=== PATIENT | female | born 1975 | race Two or more races ===

== ENCOUNTER 2023-03-22 10:27 | Emergency (ER) | payer OTHER, SELFPAY ==
[2023-03-22 10:32] VITALS: BP 156/101; PULSE 98; RESP 18; TEMP 36.9; O2SAT 98; BMI 18.5
--- NOTE | 2023-03-22 10:55 | ED_ITS ---
HPI - General Adult General Chief complaint: Weakness Stated complaint: REPEAT FALLING, HALLUCINATIONS Time Seen by Provider: 03/22/23 10:55 History of Present Illness HPI narrative: history obtained from both the patient and her . brought her in because she was having some visual hallucinations at home last night. She said she was nauseated and vomiting most the day. We do not have any previous records for her at this hospital. She is under the care of an oncologist in [place], Dr. Sanders, she had a mastectomy done by a surgeon and Anat about three years ago. She has not had any recent follow-up or CT scans of the head. They're understanding is that there is no metastasis and that she was cured she does not have any diarrhea or abdominal pain chest pain or shortness of breath. It is not been a other unusual behavior but she insists that she is seeing a rabbit and a raccoon on image of her doorway at home. She had a recent fall and was treated at an orthopedic doctor's office and is has a walking boot on and is supposed to be using crutches but she's not been using it. She has been taking some Ultram for the discomfort. She is not having a fever shakes or chills. She has no history of psychiatric disease. She has no history of auditory hallucinations or previous visual hallucinations. Related Data Allergies Allergy/AdvReac Type Severity Reaction Status Date / Time morphine Allergy Mild Verified 03/22/23 10:37 [facility] Medical History (Updated 03/22/23 @ 12:41 by Riley Aquino MD) Hx of fracture of fibula ?Z87.81 - Personal history of (healed) traumatic fracture (ICD-10) Hx of malignant neoplasm of breast ?Z85.3 - Personal history of malignant neoplasm of breast (ICD-10) Hx of neoplasm ?Z87.898 - Personal history of other specified conditions (ICD-10) Social History Smoking status: Current every day smoker Exam Narrative Exam Narrative: awake and alert vital signs are noted slight elevation of blood pressure. She is oriented ?3. Cognition is intact but please see psychiatric below. Neck C-spine showed no illicit trauma or injury or discomfort. She has no nuchal rigidity or meningeal irritation. Eye examination shows extra ocular muscles be normal. There is no nystagmus. There is no conjunctivitis. Respiratory shows no restaurant distress there is no cough wheezing or rhonchi. Heart sounds are normal no arrhythmia by palpation. Neurological examination shows cranial nerves II strolled to be normal. She has spontaneous and complete movement of her trunk and torso. She's not repeating herself. When her shows her a picture on the cell phone of his doorway at home she believes that yesterday and perhaps today she sees a rabbit and another animal that are in the picture that aren't actually not in the picture. She has no explanation for that. She is not having any auditory hallucinations. Otherwise her complete review of systems short and long-term memory is completely normal. This was d emonstrated while the was present. Constitutional Vital Signs, click to edit/add: Last Vital Signs Temp 98.5 F 03/22/23 10:32 Pulse 98 H 03/22/23 10:32 Resp 18 03/22/23 10:32 BP 156/101 H 03/22/23 10:32 Pulse Ox 98 03/22/23 10:32 O2 Del Method Room Air 03/22/23 10:32 Course Vital Signs Vital signs: Vital Signs Temperature 98.5 F 03/22/23 10:32 Pulse Rate 98 H 03/22/23 10:32 Respiratory Rate 18 03/22/23 10:32 Blood Pressure 156/101 H 03/22/23 10:32 Pulse Oximetry 98 03/22/23 10:32 Oxygen Delivery Method Room Air 03/22/23 10:32 Temperature 98.5 F 03/22/23 10:32 Pulse Rate 98 H 03/22/23 10:32 Respiratory Rate 18 03/22/23 10:32 Blood Pressure 156/101 H 03/22/23 10:32 Pulse Oximetry 98 03/22/23 10:32 Oxygen Delivery Method Room Air 03/22/23 10:32 Medical Decision Making MDM Narrative Medical decision making narrative: I did obtain medical records from her treating oncologist and she's been in remission and is doing very well recently. Her CT scan her head is normal here. Her laboratory studies show hypokalemia for uncertain etiology. This may be contributing to the fact that she has some fallen and then recently broke her leg. She is scheduled follow-up with her orthopedist. She has promised me and her that she will see a primary care doctor here in our community to have an ongoing primary care practitioner. I believe with his sleep deprivation that she described and the tramadol that that might be accounting for her symptomatology but I don't see any other acute neurological process at this time Lab Data Labs: Lab Results 03/22/23 Range/Units 11:07 WBC 8.1 (4.0-11.0) 10^3/uL RBC 3.32 L (4.20-5.40) 10^6/uL Hgb 11.6 L (12.0-16.0) g/dL Hct 34.0 L (36.0-48.0) % MCV 102.4 H (81.0-99.0) fL MCH 34.9 H (26.7-34.0) pg MCHC 34.1 (29.9-35.2) g/dL RDW 11.9 (11.0-15.0) % Plt Count 129 L (150-450) 10^3/uL MPV 10.0 (9.5-13.5) fL Sodium 133 L (136-145) mmol/L Potassium 2.9 L* (3.5-5.1) mmol/L Chloride 89 L (98-107) mmol/L Carbon Dioxide 28.5 (21.0-32.0) mmol/L Anion Gap 18.4 BUN 6.0 L (7.0-18.0) mg/dL Creatinine 0.48 L (0.55-1.02) mg/dL Est GFR ( Amer) >60 (>=60) Est GFR (Non-Af Amer) >60 (>=60) BUN/Creatinine Ratio 12.5 Glucose 98 (74-106) mg/dL Calcium 10.0 (8.5-10.1) mg/dL Total Bilirubin 1.0 (0.2-1.0) mg/dL AST 121 H (15-37) U/L ALT 61 H (14-59) U/L Alkaline Phosphatase 149 H (46-116) U/L Total Protein 8.2 (6.4-8.2) g/dL Albumin 4.1 (3.4-5.0) g/dL Globulin 4.1 g/dL Albumin/Globulin Ratio 1.0 TSH 0.455 (0.358-3.740) uIU/mL Discharge Plan Discharge Chief Complaint: Weakness Clinical Impression: Acute hypokalemia Patient Disposition: Home, Self-Care Time of Disposition Decision: 12:41 Additional Instructions: K lyte/follow-up with primary care doctor/stop tramadol/follow-up with orthopedic doctor Stand Alone Forms: Portal Instructions Referrals: Physician,Non-Staff, MD [Primary Care Provider] - 1 week
--- NOTE | 2023-03-22 10:58 | CT_ITS ---
The [address] [address] Patient Name: VALENTINE LEE MRN: [id number] date: 1975 Sex: F Assigned Patient Location: ER Current Patient Location: ER Accession/Order Number: [id number] Exam Date: 03/22/2023 11:14 Report Date: 03/22/2023 11:28 At the request of: SUNG PARK Procedure: CT head/brain wo con CT head/brain wo con, 03/22/2023 11:14 AM EDT INDICATION: visual hallucinations/breast cancer COMPARISON: There is no appropriate prior study for comparison. TECHNIQUE: Axial CT images of the brain from skull base to vertex, including portions of the face and sinuses, were obtained without contrast . Multiplanar reformatted images were generated and reviewed as needed. Dose reduction techniques were achieved by using automated exposure control and/or adjustment of mA and/or kV according to patient size and/or use of iterative reconstruction technique. FINDINGS: The cerebral sulci as well as ventricular system are enlarged consistent with mild ex vacuo cerebral volume loss. There is no intracranial mass, mass effect, midline shift, intra or extra-axial fluid collection or hemorrhage. The visualized portions of orbits, mastoid air cells as well as paranasal sinuses are unremarkable. There is no suspicious osteolytic or osteoblastic lesion. CT/CT head/brain wo con IMPRESSION: No acute intracranial process is noted. Electronically authenticated by: ANTONIO SHELTON Date: 03/22/2023 11:28
[2023-03-22 11:18] LABS: Hemoglobin 11.6 g/dL (12.0-16.0); Mean Corpuscular HGB Conc 34.1 g/dL (29.9-35.2); Mean Corpuscular Hemoglobin 34.9 pg (26.7-34.0); Mean Corpuscular Volume 102.4 fL (81.0-99.0); Platelet Count 129 10^3/uL (150-450); Red Blood Count 3.32 10^6/uL (4.20-5.40); Red Cell Distribution Width 11.9 % (11.0-15.0); White Blood Count 8.1 10^3/uL (4.0-11.0)
[2023-03-22 11:37] LABS: Alanine Aminotransferase 61 U/L (14-59); Albumin Level 4.1 g/dL (3.4-5.0); Alkaline Phosphatase 149 U/L (46-116); Anion Gap 18.4; Aspartate Amino Transferase 121 U/L (15-37); BUN Creatinine Ratio 12.5; Carbon Dioxide 28.5 mmol/L (21.0-32.0); Chloride 89 mmol/L (98-107); Estimated GFR (African America >60 (>=60); Estimated GFR (Non-African Ame >60 (>=60); Globulin 4.1 g/dL; Glucose 98 mg/dL (74-106); Sodium 133 mmol/L (136-145); Thyroid Stimulating Hormone 0.455 uIU/mL (0.358-3.740); Total Protein 8.2 g/dL (6.4-8.2)
[2023-03-22 11:40] LABS: Potassium 2.9 mmol/L (3.5-5.1)
[2023-03-22 11:43] LABS: Monocytes Absolute Manual 0.72 10^3/uL (0.30-0.80); Segmented Neut Absolute Manual 6.96 10^3/uL (1.4-6.5)
[2023-03-22 11:44] LABS: Macrocytosis 1+
[2023-03-22] MEDS: POTASSIUM CHLORIDE 10 MEQ ER TABLET 20 MEQ PO (11:54)
[2023-03-22 12:06] LABS: Bilirubin Urine MODERATE (NEGATIVE); Blood Urine TRACE-I (NEGATIVE); Clarity Urine CLEAR (CLEAR); Color Urine YELLOW (YELLOW); Glucose Urine UA NEGATIVE (NEGATIVE); Ketones Urine >=80 mg/dL (NEGATIVE); Leukocyte Esterase Urine TRACE (NEGATIVE); Nitrite Urine NEGATIVE (NEGATIVE); Protein Urine 100 mg/dL (NEG/TRACE); Specific Gravity Urine 1.015 (1.005-1.025)
[2023-03-22 12:09] LABS: Urine Microscopic Indicated YES
[2023-03-22 12:22] LABS: Mucus Urine MODERATE (NONE SEEN); Squamous Epithelial Cell Urine MODERATE #/LPF (NONE/RARE)
[2023-03-22 12:23] LABS: Cast Seen? NONE SEEN #/LPF (NONE SEEN); Crystals Seen? None Seen #/HPF (None Seen)
[2023-03-22 12:24] LABS: Bacteria Urine SMALL #/HPF (NONE SEEN); Urine Culture Indicated YES
[2023-03-22 12:55] VITALS: BP 128/80; PULSE 96; RESP 16; O2SAT 98
--- NOTE | 2023-03-26 08:20 | PC.NURSE ---
03/26/23 0820 pt called and updated on + uti from 03/22/[address] Aquino on 03/25/23 Macrobid 100 mg po BID times 7 days called to [facility] in [place]. pt updated and denies any further questions needs or conerns at this time. Red Kruger RN
== END 2023-03-22 13:00 | disposition home or self-care (01) ==
PROVIDERS: Emergency Provider Emergency Medicine Emergency Medical Services
DX: E87.6 Hypokalemia (principal); Z87.81 Personal history of (healed) traumatic fracture; Z85.3 Personal history of malignant neoplasm of breast; Z90.10 Acquired absence of unspecified breast and nipple; F17.210 Nicotine dependence, cigarettes, uncomplicated
CPT/HCPCS: 36415; 70450; 80053; 81001; 84443; 85027; 87086; 87150; 87186; 99284

== ENCOUNTER 2024-03-05 10:57 | Outpatient (OUT) | payer OTHER, SELFPAY ==
--- NOTE | 2024-03-05 11:19 | CT_ITS ---
The [address] [address] Patient Name: VALENTINE LEE MRN: [id number] date: 1975 Sex: F Assigned Patient Location: CT Current Patient Location: CT Accession/Order Number: [id number] Exam Date: 03/05/2024 11:15 Report Date: 03/05/2024 11:34 At the request of: PETER CERNA Procedure: CT head/brain wo con EXAM: CT head/brain wo con HISTORY: CONFUSION, UNSTEADY GAIT COMPARISON: CT head 03/22/2023. TECHNIQUE: Axial noncontrast CT imaging of the head was performed with coronal and sagittal reformats. FINDINGS: Calvarium/skull base: No evidence of acute fracture or destructive lesion. Paranasal sinuses: No air fluid levels. Brain: No acute intracranial hemorrhage. No acute large vascular territory infarct. Mild age advanced parenchymal volume loss. No mass lesion or mass effect. No hydrocephalus. CT/CT head/brain wo con IMPRESSION: No acute intracranial process. Electronically authenticated by: GLENIS LAWRENCE Date: 03/05/2024 11:34
[2024-03-05 11:40] LABS: Bilirubin Urine NEGATIVE (NEGATIVE); Blood Urine TRACE-I (NEGATIVE); Clarity Urine CLEAR (CLEAR); Color Urine LT. YELLOW (YELLOW); Glucose Urine UA NEGATIVE (NEGATIVE); Ketones Urine NEGATIVE (NEGATIVE); Leukocyte Esterase Urine SMALL (NEGATIVE); Nitrite Urine NEGATIVE (NEGATIVE); Protein Urine NEGATIVE (NEG/TRACE); Urobilinogen Urine 0.2 EU/dL (0.2-1.0); pH Urine 6.5 (5.0-9.0)
[2024-03-05 11:58] LABS: Ammonia <10 umol/L (11-32)
[2024-03-05 12:33] LABS: Percent Iron Saturation 7.3 %
[2024-03-05 12:39] LABS: Alanine Aminotransferase 39 U/L (14-59); Albumin Globulin Ratio 0.7; Albumin Level 2.8 g/dL (3.4-5.0); Alkaline Phosphatase 129 U/L (46-116); Anion Gap 7.9; Aspartate Amino Transferase 66 U/L (15-37); BUN Creatinine Ratio 7.7; Bilirubin Total 0.4 mg/dL (0.2-1.0); Calcium 7.9 mg/dL (8.5-10.1); Carbon Dioxide 32.8 mmol/L (21.0-32.0); Chloride 96 mmol/L (98-107); Estimated GFR (African America >60 (>=60); Estimated GFR (Non-African Ame >60 (>=60); Globulin 4.2 g/dL; Glucose 94 mg/dL (74-106); Magnesium 1.9 mg/dL (1.8-2.4); Sodium 134 mmol/L (136-145); Thyroid Stimulating Hormone 0.934 uIU/mL (0.358-3.740)
[2024-03-05 12:43] LABS: Urine Microscopic Indicated YES
[2024-03-05 12:50] LABS: Bacteria Urine SMALL #/HPF (NONE SEEN); Cast Seen? NONE SEEN #/LPF (NONE SEEN); Crystals Seen? None Seen #/HPF (None Seen); Mucus Urine NONE SEEN (NONE SEEN); Squamous Epithelial Cell Urine FEW #/LPF (NONE/RARE); Urine Culture Indicated YES
[2024-03-05 13:25] LABS: Potassium 2.7 mmol/L (3.5-5.1)
[2024-03-06 11:12] LABS: Vitamin B12 1103 pg/mL (232-1245)
[2024-03-08 13:10] LABS: Vitamin B1 (Thiamine), Blood 94.5 nmol/L (66.5-200.0)
== END 2024-03-05 10:58 | disposition home or self-care (01) ==
LOC: CT 11:00
PROVIDERS: Visit Provider Nurse Practitioner Primary Care
DX: R41.0 Disorientation, unspecified (principal); R26.89 Other abnormalities of gait and mobility; F10.90 Alcohol use, unspecified, uncomplicated
CPT/HCPCS: 36415; 70450; 80053; 81001; 82140; 82306; 82607; 82746; 83540; 83550; 83735; 84425; 84443; 87086

== ENCOUNTER 2025-01-03 10:17 | Emergency (ER) | payer OTHER, SELFPAY ==
--- OUTSIDE RECORDS SUMMARY | 2022-06-01 12:57 | XMS_ITS | Continuity of Care Document ---
Author Organization [facility] Address [address] [place] [address] Phone Care Team Providers Care Child Care Giver Name Role Phone Derick WHCNP WHCNP, Ni Hillman Unavaila ble Allergies, Adverse Reactions, Alerts Substance Reaction Status Criticality morphine Hives/Skin Rash Active No Informati on Medications Medication Instructions Dosage Effective Dates (start - stop) Status Comments Requip 0.25 mg tablet take 2 tablet by oral route 2 times every day 0.5 MG - Active amoxicillin 500 mg capsule take 1 capsule by oral route every 8 hours for Intraoral abscess 500 MG - Active TAMOXIFEN CITRATE (unknown strength) take 1 tablet by oral route every day in the morning and evening Not Available - Active Calcium 600 600 mg calcium (1,500 mg) tablet - Active Vitamin D3 1,000 unit capsule take 1 capsule by oral route every day 1 capsule - Active ibuprofen 200 mg capsule take 1 capsule by oral route every 6 hours as needed 200 MG - Active Problems Condition Type Effective Dates (start - stop) Clini sridevi Status Comments No Known Problems Procedures Procedure Date Extract; Erupted Th/exposted Rt Extract; Erupted Th/exposted Rt 019 Oral Hygiene Instruction Treatment Completed Intraoral-periapical 1st Film 9 Etsbiimzb-dmsxqirojn-rdar Additional Feb Limited Oral Eval PREV VISIT, EST, AGE 40-64 PREVENTIVE NEW AGE 40-64 PREVENTIVE NEW AGE 40-64 PREV VISIT, NEW, AGE 18-39 CHLAMYDIA & GC W/REFLEX TO ID (DNA PROBE , ENDOCERMURET) THIN PREP AND HPV URINE TEST Condoms Advance Directives Directive Yes / No Effective Date File Name No Information Encounters Encounter Description Practice Location Reason(s) For Visit Diagnoses Date Provider Providers Copied on Encounter [facility], [address] [place] [address], [id number] , [place] tel: [phone] [facility] No Information 2 Rice [facility] Ni. [address] [place], [place], [id number], [place]. tel:[phone] [facility], [address] [place] [address], [id number] , [place] tel: [phone] [facility] No Information Apr-0 9 Kyree Navarrete. [address] [place], [place], [id number], [place]. tel:[phone] [facility], [address] [place] [address], [id number] , [place] tel: [phone] Dental Clinic Encounter for screening for dental disorders Sep-0 9 Waldemar Quintanilla. [address] [place], [place], [id number], [place]. tel:[phone] [facility], [address] [place] [address], [id number] , [place] tel: [phone] Dental Clinic dental emergency (chief complaint) Encounter for screening for dental disorders Sep-0 - 9 Colin Greenberg. [address] [place], [place], [id number], [place]. tel:[phone] [facility], [address] [place] [address], [id number] , [place] tel: [phone] [facility] problem visit (chief complaint) Body mass index (BMI) 21.0-21.9, adult Sep-0 3- 9 Kyree Navarrete. [address] [place], [place], [id number], [place]. tel:[phone] [facility], [address] [place], [place], [id number] , [place] tel: [phone] [facility] review labs (chief complaint) Body mass index (BMI) 21.0-21.9, adultUrinary frequencyEncounter to discuss test resultsNeuropathyI nfiltrating ductal carcinoma of left breast 9 Kyree Navarrete. [address] [place], [place], [id number], [place]. tel:[phone] [facility], [address] [place] [address], [id number] , [place] tel: [phone] [facility] leg numbness (chief complaint) Body mass index (BMI) 21.0-21.9, adultEncounter to establish careInfiltrating ductal carcinoma of left breastNeuropathyTo bacco abuse 8-201 8 Kyree Navarrete. [address] [place] [address], [id number], [place]. tel:[phone] [facility], [address] [place] [address], [id number] , [place] tel: [phone] [facility] Infiltrating ductal carcinoma of left breast 2 8 [facility] Ni. [address] [place], [place], [id number], [place]. tel:[phone] [facility], [address] [place], [place], [id number] , [place] tel: [phone] [facility] Lump in the left breast 3 8 Rice CNP Ni. [address] [place] [address], [id number], [place]. 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 [address] [place], [place], [id number], [place]. tel:[phone] [facility], [address] [place], [place], [id number] , [place] tel: [phone] [facility] Fibrocystic disease of breast 7 [facility] Ni. [address] [place], [place], [id number], [place]. tel:[phone] PREVENTIVE NEW AGE 40-64 [facility], [address] [place], [place], [id number] , [place] tel: [phone] [facility] annual exam (chief complaint) Unspecified lump in breastEnlarged uterus- STD screen- STD liefstyle code- well woman with abnormal finding 7 [facility] Ni. [address] [place], [place], [id number], [place]. tel:[phone] PREV VISIT, NEW, AGE 18-39 [facility], [address] [place], [place], [id number] , [place] tel: [phone] [facility] No Information 1 Hunter Walker. [address] [place], [place], [id number], [place]. tel:[phone] Family History Family Member Type Diagnosis Age At Onset Mother Problem (finding) Alive and well Father Problem (finding) alcoholism Brother Problem (finding) Alive and well Payers Payer name Insurance type Covered libertarian ID Authorsaniyaa tivalente(s) Self Pay Cap 09 Social History Type Description Quantity Date Captured Comments Alcohol Use Details Unknown Caffeine Use Details Unknown Tobacco Use Status Smoking Status No Information Sex Female Sexual Orientation Straight or heterosexual Gender Identity Female Chief Complaint And Reason For Visit No Information Reason For Referral Reason For Referral No Information Plan Of Treatment Date Type Action Status Goal Dietary manageme nt education, guidance, and counseling completed Goal Tobacco cessation counseling completed Goal Tobacco cessation counseling completed Goal Dietary manageme nt education, guidance, and counseling completed Goal Tobacco cessation counseling completed Goal Dietary manageme nt education, guidance, and counseling completed Goal Tobacco cessation counseling completed Goal Tobacco cessation counseling completed Goal Tobacco cessation counseling completed Referral Ordered: Referrals: Surgery Appointment date/timeframe: 06/01/2018 ordered Referral Ordered: BREAST ULTRASOUND GUIDED BIOPSY Left ordered Referral Ordered: DX MAMMO INCL CAD BI ordered Future Order: Lab Order CBC With Differential/Platelet ([id number]), Ordered on: Ordered Future Order: Lab Order Comp. Me tabolic Panel (14) ([id number]), Ordered on: Ordered Future Order: Lab Order Hemoglob in A1c ([id number]), Ordered on: Ordered Future Order: Lab Order Lipid Pa swathi ([id number]), Ordered on: Ordered Future Order: Lab Order TSH+Free T4 ([id number]), Ordered on: Ordered Future Order: Lab Order UA/M w/r flx Culture, Routine ([id number]), Ordered on: Ordered History Of Present Illness Encounter Date Complaint History Of Prese nt Illness dental emergency dental emergenc y problem visit Pt here for swel ling in mouth. Pt noticed it about two weeks ago on the outside of right gum. Pt noticed a couple days ago that it is on the inside of her gum now. Pt states that the pain radiates up into her ear and down her neck as well. Pt denies any fevers. Pt has taken ibuprofen with only minimal relief. Pt requesting antibiotic. Yesterday while brushing her teeth pt noticed it was bleeding. No other complaints at this time. Kajal Peterson RN review labs Patient is here to review labs. LucreciaMELANIE leg numbness Patient is here to discuss her leg numbness. 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 She has recently been diagnosed with Breast Cancer by Neida Aceves on for a plan of action. ASHLYAndriaMELANIE annual exam Currently pregna nt: no. : 2. Parity: Pre-Term: 2. Livin. Patient is not contemplating . The patient states she uses none and withdrawal for control. Last LMP was 05/01/2018. Her menses is regular with normal flow with a frequency of >28 days.Negative for Hormone replacement therapy. The patient does use tobacco. Tobacco cessation has been discussed. She does drink alcohol. Additional information: Patient is here for annual exam. Continues to have left breast cyst and feels it is getting bigger and more tender. Is due for her mammogram. States her menses is regular and at time heavy and painful. Was told last year she had an enlarged uterus. Using withdrawal and NFP for BC. annual exam Currently pregna nt: no. : 2. Parity: Pre-Term: 2. Livin. Patient is not contemplating . The patient states she uses none and withdrawal for control. Last LMP was 02/14/2017. Her menses is regular with normal flow with a frequency of every 28 days. Positive for dysmenorrhea.Negative for Hormone replacement therapy. The patient does use tobacco. Tobacco cessation has been discussed. She does drink alcohol. Additional information: Patient is here for annual exam and c/o lump in left breast. Patient states lump is tender. Staets she has never had a mammogram. Her menses is regular, but has heavy bleeding the first 1-2 days. . Functional Status Date Functional Assessmen t No Information Instructions Date Instruction Additional Infor frida Dietary management e ducation, guidance, and counseling Related to Body mass index (BMI) 21.0-21.9, adult Giving encouragement to exercise Related to Body mass index (BMI) 21.0-21.9, adult Giving encouragement to exercise Related to Body mass index (BMI) 21.0-21.9, adult Dietary management e ducation, guidance, and counseling Related to Body mass index (BMI) 21.0-21.9, adult Dietary management e ducation, guidance, and counseling Related to Body mass index (BMI) 21.0-21.9, adult Giving encouragement to exercise Related to Body mass index (BMI) 21.0-21.9, adult Cervical cultures se nt to lab. Patient to call in 1 week for results Related to - STD screen Encouraged monthly B SE. Recommend calcium 1000mg QD. Encouraged good dietary intake and exercise. Laboratory specimens sent to lab. Patient to call in 2 weeks if desires results. Discussed withdrawal and NFP and patient does not desire a change in BC. Encouraged to use withdrawal all the time as she gets older and starts to have irregular cycles. Patient states understanding. 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 Referral to Gen Surgeon for further evaluation. Patient may desire to have lump removed even if it is just a cyst. Related to Encounter for screening mammogram for malignant neoplasm of breast Cervical cultures se nt to lab. Patient to call in 1 week for results Related to - STD screen Encouraged monthly B SE. Recommend calcium 1000mg QD. Encouraged good dietary intake and exercise. Laboratory specimens sent to lab. Patient to call in 2 weeks if desires results. Related to - well woman with abnormal finding Discussed enlarged u terus in detail. Patient states she does have a heavy painful menses for the first 1-2 days of her menses. ENcouraged Ibuprofen 800mg every 8 hours PRN with menses. Related to Enlarged uterus Discussed left breas t lump. Encouraged to keep mammogram, sonogram and referral to general surgeon for evaluation of left breast lump. Related to Unspecified lump in breast Assessments Type Assessment Date No Information Patient Care Teams Name Effective Dates (start - stop) Status Members No Information
[2025-01-03 10:23] VITALS: BP 137/93; PULSE 113; TEMP 37.1; O2SAT 98; BMI 19.6
--- OUTSIDE RECORDS SUMMARY | 2025-01-03 10:29 | XMS_ITS | Clinical Summary ---
Author Organization [facility] Healthcare Address [address] [place] [address] Care Team Providers Care Social Media Sr Strategy Manager Name Role Phone Unavailable Primary Care Provider Unavailabl e Social History Tobacco Use Types Packs/Day Years Used Date Smoking Tobacco: Never Assessed Comments Unknown Sex and Gender Information Value Date Recorded Sex Assigned at Not on file Legal Sex Female 8:06 PM EDT Gender Identity Not on file Sexual Orientation Not on file Last Filed Vital Signs Vital Sign Reading Time Taken Comments Blood Pressure 121/72 05/07/2019 12:00 PM EST Pulse - - Temperature - - Respiratory Rate - - Oxygen Saturation - - Inhaled Oxygen Concentration - - Weight 63.5 kg (140 lb) 04/21/2020 12:00 PM EST Height 170.2 cm (5' 7 ) 04/21/2020 12:00 PM EST Body Mass Index 21.93 04/21/2020 12:00 PM EST Plan of Treatment Not on file Insurance [employer]
--- OUTSIDE RECORDS SUMMARY | 2025-01-03 10:29 | XMS_ITS | Clinical Summary ---
Author Organization [facility] Address [address] [place] [address] Phone Care Team Providers Care Exchange Specialist Name Role Phone Rosalba Adorno SORTING GRAPPLE OPERATOR-SALES DEVELOPMENT DIRECTOR Primary Care Provide r Social History Tobacco Use Types Packs/Day Years Used Date Smoking Tobacco: Never Assessed Comments Unknown Sex and Gender Information Value Date Recorded Sex Assigned at Not on file Legal Sex Female 9:52 PM EST Gender Identity Not on file Sexual Orientation Not on file Plan of Treatment Not on file Care Teams Exchange Specialist Relationship Specialty Start Date End Date Rosalba Adorno, BILL-SALES DEVELOPMENT DIRECTOR [address] [place] [id number] PCP - General 07/14/18
--- NOTE | 2025-01-03 10:33 | PC.NURSE ---
pt N/V since , has been resolved for 2 days. still has an abd ache. pt requesting to be checked for potassium, drug screen and urine sample. states she went crazy at work the other day and needs to prove she's on drugs. informed dr fierro.
--- OUTSIDE RECORDS SUMMARY | 2025-01-03 10:37 | XMS_ITS | CCD ---
Author Organization [facility] Care Team Providers Care Drainage Inspector Name Role Phone MORGAN, RAJENDER K Attending Unavailable Rosalba Adorno K Primary Care Unavailable MORGAN, RAJENDER K Attending Unavailable Hanapoleoner, Rosalba K Primary Care Unavailable MORGAN, RAJENDER K Attending Unavailable Rosalba Adorno K Primary Care Unavailable MORGAN, RAJENDER K Attending Unavailable Kyree, Rosalba K Primary Care Unavailable MORGAN, RAJENDER K Attending Unavailable Bretter, Rosalba K Primary Care Unavailable MORGAN, RAJENDER K Attending Unavailable Kyree, Rosalba K Primary Care Unavailable OMRGAN, RAJENDER K Attending Unavailable Kyree, Rosalba K Primary Care Unavailable MORGAN, RAJENDER K Attending Unavailable Kyree, Rosalba K Primary Care Unavailable MORGAN, RAJENDER K Attending Unavailable Kyree, Rosalba K Primary Care Unavailable MORGAN, RAJENDER K Attending Unavailable Kyree, Rosalba K Primary Care Unavailable MORGAN, RAJENDER K Attending Unavailable Hanapoleoner, Rosalba K Primary Care Unavailable Wells, Vivek Attending Unavailable Hacker, Rosalba K Primary Care Unavailable Wells, Vivek Attending Unavailable Hacker, Rosalba K Primary Care Unavailable Wells, Vivek Attending Unavailable Bretter, Rosalba K Primary Care Unavailable MORGAN, RAJENDER K Attending Unavailable Hacker, Rosalba K Primary Care Unavailable MORGAN, RAJENDER K Attending Unavailable Kyree, Rosalba K Primary Care Unavailable MORGAN, RAJENDER K Attending Unavailable Kyree, Rosalba K Primary Care Unavailable MORGAN, RAJENDER K Attending Unavailable Hanapoleoner, Rosalba K Primary Care Unavailable MORGAN, RAJENDER K Attending Unavailable Hacker, Rosalba K Primary Care Unavailable MORGAN, RAJENDER K Attending Unavailable Hacker, Rosalba K Primary Care Unavailable MORGAN, RAJENDER K Attending Unavailable Hacker, Rosalba K Primary Care Unavailable MORGAN, RAJENDER K Attending Unavailable Hacker, Rosalba K Primary Care Unavailable MORGAN, RAJENDER K Attending Unavailable Hacker, Rosalba K Primary Care Unavailable MORGAN, RAJENDER K Attending Unavailable Hacker, Rosalba K Primary Care Unavailable MORGAN, RAJENDER K Attending Unavailable Hacker, Rosalba K Primary Care Unavailable MORGAN, RAJENDER K Attending Unavailable Hacker, Rosalba K Primary Care Unavailable MORGAN, RAJENDER K Attending Unavailable Hacker, Rosalba K Primary Care Unavailable MARINE ZALDIVAR Attending Unavailable REQUEST, DR NONE LISTED Consulting Unavaila ble MARINE ZALDIVAR Admitting Unavailable MARINE ZALDIVAR Consulting Unavailable MARINE ZALDIVAR Attending Unavailable MARINE ZALDIVAR Admitting Unavailable BILL Adorno Primary Care Provider DO Tomi Salas Referring Provider MD Carmela Sewell Attending Provider [phone] BILL Adorno Primary Care Provider DO Tomi Salas Referring Provider [phone] MD Carmela Sewell Attending Provider BILL Adorno Primary Care Provider LOUANN Cuevas Attending Provider Rosalba Cuevas Unavailable DO Rodrigo Hernandez Attending Provider [phone] Rodrigo Hernandez Unavailable BILL Adorno Primary Care Provider DO Rodrigo Hernandez Attending Provider [phone] Rosalba Adorno Primary Care Unavailable Rosalba Cuevas L Admitting Unavailable Rosalba Cuevas L Attending Unavailable Rosalba Adorno Primary Care Unavailable Faith, Rosalba L Admitting Unavailable Rosalba Cuevas Attending Unavailable Rosalba Adorno Primary Care Unavailable Rodrigo Hernandez Admitting Unavailable Rodrigo Hernandez Attending Unavailable Rosalba Adorno Primary Care Unavailable Rodrigo Hernandez Admitting Unavailable Rodrigo Hernandez Attending Unavailable Rodrigo Hernandez Admitting Unavailable Rodrigo Hernandez Attending Unavailable Rosalba Adorno Primary Care Unavailable MARJORIE WOLF Attending Unavailable NO PCP, NO PCP Primary Care Unavailable MARJORIE WOLF Attending Unavailable MARJORIE WOLF Referring Unavailable NO PCP, NO PCP Primary Care Unavailable Allergies Allergy Classification Reported Allergen(s) Allergy Type Date of Onset Reaction(s) Facility Opioid Agonists (1 source) Morphine Drug Allergy 1 [facility] (12 sources) Morphine; Translations: [morphine] Drug Allergy 2 Unknown Reaction, Unknown [facility] (6 sources) band aid adhesive Allergy to substance 2 Rash [facility] Medications Current Medications Medication Drug Class(es) Dates Sig (Normalized) Sig (Original) acetaminophen 500 mg oral tablet (5 sources) Start: 03-24-2023 take 1 tablet by mouth every six hours Acetaminophen 500 MG 1 tablet as needed Orally every 6 hrs to be used post op Mar, Active aspirin 81 mg chewable tablet (5 sources) Platelet Aggregation Inhibitor, Nonsteroidal Anti-inflammatory Drug Start: 03-24-2023 take 1 tablet by mouth every twelve hours Aspirin 81 MG 1 tablet Orally Twice a day for 30 days to be used post op Mar, Active docusate sodium 100 mg oral capsule (5 sources) Start: 03-24-2023 take 1 capsule by mouth every twelve hours Colace 100 MG 1 capsule as needed Orally Twice a day for 10 days to be used post op Mar, Active doxycycline hyclate 100 mg oral capsule (5 sources) Tetracycline-class Drug Start: 03-24-2023 take 1 capsule by mouth every twelve hours Doxycycline Hyclate 100 MG 1 capsule Orally Twice a day for 7 days to be used post op Mar, Active meloxicam 15 mg oral tablet (5 sources) Nonsteroidal Anti-inflammatory Drug Start: 03-24-2023 take 1 tablet by mouth every twenty-four hours Meloxicam 15 MG 1 tablet Orally Once a day for 14 days to be used post op Mar, Active oxyCODONE hydrochloride 5 mg oral tablet (5 sources) Opioid Agonist Start: 03-24-2023 take 1 tablet by mouth every six hours oxyCODONE HCl 5 MG 1 tablet as needed Orally every 6 hrs for 7 days to be used post op Mar, Active rOPINIRole 0.5 mg oral tablet (6 sources) Nonergot Dopamine Agonist Start: 07-21-2018 take 0.5 mg by mouth once daily at bedtime Ropinirole Active 0.5 MG PO Daily at bedtime July 21, 2018 12:00am tamoxifen 10 mg oral tablet (20 sources) Estrogen Agonist/Antagonist Start: 04-29-2021 End: 04-06-2023 take 10 mg by mouth once daily Tamoxifen Active 10 MG PO Daily 90 90 April 06, 2023 7:26am Start: 10-12-2018 End: 04-28-2021 take 20 mg by mouth once daily Tamoxifen Discontinued 20 MG PO Daily 90 90 October 29, 2019 2:13pm April 28, 2021 2:27pm Tamoxifen Citrat e Active traMADol hydrochloride 50 mg oral tablet (5 sources) Opioid Agonist Start: 03-18-2023 take 1 tablet by mouth every six hours traMADol HCl 50 MG 1 tablet as needed Orally every 6 hours for 5 days Mar, Active Completed/Discontinued Medications Medication Drug Class(es) Dates Sig (Normalized) Sig (Original) calcium carbonate 1500 mg oral tablet (6 sources) Start: 04-25-2019 End: 04-28-2021 take 1 tablet by mouth once daily Calcium Carbonate (Calcium 600) 600 mg calcium (1,500 mg) Tablet Discontinued 1 TAB PO Daily April 25, 2019 12:00am April 28, 2021 2:27pm cholecalciferol 0.025 mg oral capsule (6 sources) Vitamin D Start: 04-25-2019 End: 04-28-2021 take 1 capsule by mouth once daily Cholecalciferol (Vitamin D3) (Vitamin D3) 1,000 unit Capsule Discontinued 1000 UNIT PO Daily April 25, 2019 12:00am April 28, 2021 2:27pm Hyaluronic Xx-Jahbvdliv-Mozl (Radiaplexrx) Gel (6 sources) Start: 09-13-2018 End: 11-08-2018 Hyaluronic Yi-Dljegcdrl-Bxcn (Radiaplexrx) Gel Discontinued 1 APPLIC TOPICAL Three times daily September 13, 2018 12:00am November 08, 2018 8:32am Start: 09-13-2018 End: 11-08-2018 Hyaluronic Jn-Ayfedosus-Xxca (Radiaplexrx) Gel Discontinued 1 APPLIC TOPICAL Three times daily September 12, 2018 11:00pm November 08, 2018 7:32am ibuprofen 800 mg oral tablet (17 sources) Nonsteroidal Anti-inflammatory Drug Start: 07-28-2018 End: 08-04-2018 Ibuprofen Discontinued 800 MG PO EVERY 8-12 HOURS 30 7 July 28, 2018 12:00am August 04, 2018 12:02am Start: 07-21-2018 take 800 mg by mouth every four to six hours Ibuprofen Active 800 MG PO EVERY 4-6 HOURS July 21, 2018 12:00am take 1 tablet by tiffanie th three times daily at mealtime as needed Ibuprofen 400 MG 1 tablet with food or milk as needed Orally Three times a day Active mometasone furoate 0.001 mg/mg topical ointment (6 sources) Corticosteroid Start: 09-26-2018 End: 11-08-2018 Mometasone Discontinued 1 APPLIC TOPICAL Twice daily September 25, 2018 11:00pm November 08, 2018 7:54am 09/26/18 disp. 1 tube refill 1 Problems Active Problems Problem Classification Problem Date Documented Date Episodic/Chronic Administrative/social admission (14 sources) Patient encounter status; Translations: [Tobacco abuse counseling] 10-12-2018 Episodic Cancer of breast (8 sources) Carcinoma of breast - upper, outer quadrant; Translations: [Malignant neoplasm of upper-outer quadrant of left female breast] 04-30-2021 Chronic Fluid and electrolyte disorders (1 source) Hypokalemia; Translations: [Hypokalemia] Onset: 03-04-2024 Episodic Fracture of lower limb (2 sources) Other fracture of upper and lower end of left fibula, initial encounter for closed fracture; Translations: [Other fracture of upper and lower end of left fibula, subsequent encounter for closed fracture with routine healing] Episodic Immunizations and screening for infectious disease (4 sources) Encounter for immunization; Translations: [ENCOUNTER FOR IMMUNIZATION] Onset: 10-13-2020 Episodic Nonmalignant breast conditions (6 sources) Breast lump; Translations: [Unspecified lump in the left breast, unspecified quadrant] 04-25-2019 Episodic Other aftercare (2 sources) Encounter for therapeutic drug level monitoring; Translations: [Encounter for therapeutic drug monitoring] 05-31-2022 Episodic Other injuries and conditions due to external causes (3 sources) Personal history of (healed) traumatic fracture Episodic Other non-traumatic joint disorders (2 sources) Pain in left ankle and joints of left foot Episodic Other nutritional; endocrine; and metabolic disorders (1 source) Hypomagnesemia; Translations: [Hypomagnesemia] Onset: 03-04-2024 Chronic Residual codes; unclassified (6 sources) Reduced libido; Translations: [Decreased libido] 04-24-2020 Episodic Residual codes; unclassified (6 sources) Noncompliance with medication regimen; Translations: [Patient's other noncompliance with medication regimen] 04-30-2021 Episodic Residual codes; unclassified (8 sources) Noncompliance with diagnostic testing ; Translations: [Noncompliance with diagnostic testing] 04-30-2021 Episodic Residual codes; unclassified (2 sources) Decreased libido; Translations: [Decreased libido] 05-31-2022 Episodic Residual codes; unclassified (2 sources) Patient's other noncompliance with medication regimen; Translations: [Personal history of noncompliance with medical treatment, presenting hazards to health] 05-31-2022 Episodic Residual codes; unclassified (1 source) Altered mental status, unspecified; Translations: [Altered mental status, unspecified] Onset: 03-04-2024 Episodic Residual codes; unclassified (1 source) Hallucinations Onset: 03-04-2024 Episodic Sprains and strains (1 source) Sprain of tibiofibular ligament of left ankle, initial encounter Episodic Substance-related disorders (14 sources) Tobacco dependence syndrome; Translations: [Nicotine dependence, unspecified, uncomplicated] 01-16-2019 Chronic Unclassified (1 source) Other fracture of upper and lower end of left fibula, initial encounter for closed fracture; Translations: [Other fracture of upper and lower end of left fibula, initial encounter for closed fracture] Onset: 05-03-2023 Unclassified (1 source) Personal history of (healed) traumatic fracture; Translations: [Personal history of (healed) traumatic fracture] Onset: 04-05-2023 Unclassified (1 source) EMS Onset: 03-04-2024 Past or Other Problems Problem Classification Problem Date Documented Date Episodic/Chronic Residual codes; unclassified (4 sources) Other specified postprocedural states; Translations: [Other specified postprocedural states] Onset: 04-05-2023 Episodic Results Test Name Value Interpretation Reference Range Facility BLOOD CULTUREon 03-04-2024 Bacteria identified Aer cx Nom (Bld) SPECIMEN NOTES SUBOPTIMAL VOLUME OF BLOOD COLLECTED, RESULTS MAY BE AFFECTED. CULTURE RESULTS NO GROWTH 5 DAYS Normal [facility] Comment on above: Performed By: #### C LIAM, CBCA, 39170-2 #### [facility] ([id number]) [address] [place] [address] 39343 Bacteria identified Aer cx Nom (Bld) CULTURE RESULTS NO GROWTH 5 DAYS Normal [facility] CBC AND AUTO DIFFon 03-04-20 24 ABSOLUTE BASOPHIL 0.0 X10E9/L Normal 0.0-0.2 [facility] Comment on above: Performed By: #### C LIAM, CBCA, 90668-0 #### [facility] ([id number]) [address] [place] [address] 51371 ABSOLUTE NEUTROPHIL 6.6 X10E9/L Normal 1.5-6.6 [facility] Comment on above: Performed By: #### C LIAM, CBCA, 84894-4 #### [facility] ([id number]) [address] [place] [address] 71258 Basophils/100 WBC (Bld) 0.6 % Normal [facility] Comment on above: Performed By: #### C LIAM, CBCA, 74364-2 #### [facility] ([id number]) [address] [place] [address] 55151 Eosinophils (Bld) [#/Vol] 0.1 10*3/uL Normal 0.0-0.4 [facility] Comment on above: Performed By: #### C LIAM, CBCA, 73246-3 #### [facility] ([id number]) [address] [place] [address] 01868 Eosinophils/100 WBC (Bld) 1.4 % Normal [facility] Comment on above: Performed By: #### C LIAM CBCA, 30478-6 #### [facility] ([id number]) [address] [place] [address] 04818 Erythrocyte distribution width (RBC) [Ratio] 20.0 % High 11.5-15.0 [facility] Comment on above: Performed By: #### C LIAM CBCA, 96057-3 #### [facility] ([id number]) [address] [place] [address] 41848 Hematocrit (Bld) [Volume fraction] 29.1 % Low 35-47 [facility] Comment on above: Performed By: #### C LIAM CBCA, 04887-0 #### [facility] ([id number]) [address] [place] [address] 08337 Hemoglobin (Bld) [Mass/Vol] 9.7 g/dL Low 11.7-15.5 [facility] Comment on above: Performed By: #### C LIAM, CBCA, 82598-4 #### [facility] ([id number]) [address] [place] [address] 99638 Lymphocytes (Bld) [#/Vol] 0.7 10*3/uL Low 1.0-3.5 [facility] Comment on above: Performed By: #### C LIAM, CBCA, 13115-0 #### [facility] ([id number]) [address] [place] [address] 15985 Lymphocytes/100 WBC (Bld) 8.3 % Normal [facility] Comment on above: Performed By: #### C LIAM, CBCA, 04586-7 #### [facility] ([id number]) [address] [place] [address] 00860 MCH (RBC) [Entitic mass] 32.7 pg Normal 27-34 [facility] Comment on above: Performed By: #### C LIAM CBCA, 05387-3 #### [facility] ([id number]) [address] [place] [address] 49370 MCHC (RBC) [Mass/Vol] 33.3 g/dL Normal 32-36 [facility] Comment on above: Performed By: #### C LIAM, CBCA, 14833-5 #### [facility] ([id number]) [address] [place] [address] 18444 MCV (RBC) [Entitic vol] 98 fL Normal 80-100 [facility] Comment on above: Performed By: #### C LIAM CBCA, 20650-9 #### [facility] ([id number]) [address] [place] [address] 65143 Monocytes (Bld) [#/Vol] 0.9 10*3/uL Normal 0-0.9 [facility] Comment on above: Performed By: #### C LIAM CBCA, 41099-0 #### [facility] ([id number]) [address] [place] [address] 12425 Monocytes/100 WBC (Bld) 10.9 % Normal [facility] Comment on above: Performed By: #### C LIAM CBCA, 10446-3 #### [facility] ([id number]) [address] [place] [address] 86179 Neutrophils/100 WBC (Bld) 78.8 % Normal [facility] Comment on above: Performed By: #### C LIAM CBCA, 33864-8 #### [facility] ([id number]) [address] [place] [address] 72222 Platelet mean volume (Bld) [Entitic vol] 8.7 fL Normal 7-12 [facility] Comment on above: Performed By: #### C LIAM, CBCA, 77069-1 #### [facility] ([id number]) [address] [place] [address] 10695 Platelets (Bld) [#/Vol] 303 10*3/uL Normal 150-450 [facility] Comment on above: Performed By: #### C LIAM, CBCA, 64647-9 #### [facility] ([id number]) [address] [place] [address] 38089 RBC COUNT 2.96 X10E12/L Low 3.80-5.20 [facility] Comment on above: Performed By: #### C LIAM, CBCA, 29374-4 #### [facility] ([id number]) [address] [place] [address] 72351 WBC (Bld) [#/Vol] 8.4 10*3/uL Normal 4.0-11.0 [facility] Comment on above: Performed By: #### C LIAM CBCA, 24614-2 #### [facility] ([id number]) [address] [place] [address] 61071 COMPREHENSIVE METABOLIC PANE Clarence 03-04-2024 Albumin [Mass/Vol] 3.0 g/dL Low 3.2-5.3 [facility] Comment on above: Performed By: #### C LIAM CBCA, 83431-2 #### [facility] ([id number]) [address] [place] [address] 81352 ALP [Catalytic activity/Vol] 109 U/L Normal 39-130 [facility] Comment on above: Performed By: #### C LIAM, CBCA, 83224-8 #### [facility] ([id number]) [address] [place] [address] 74855 ALT [Catalytic activity/Vol] 33 U/L High 0-31 [facility] Comment on above: Performed By: #### C BENJAMIN WHEELER, 40743-5 #### [facility] ([id number]) [address] [place] [address] 82049 Anion gap [Moles/Vol] 9 mmol/L Normal 5-15 [facility] Comment on above: Performed By: #### C BENJAMIN WHEELER, 93201-3 #### [facility] ([id number]) [address] [place] [address] 00726 AST [Catalytic activity/Vol] 77 U/L High 0-41 [facility] Comment on above: Performed By: #### C BENJAMIN WHEELER, 57497-1 #### [facility] ([id number]) [address] [place] [address] 99105 Bilirubin [Mass/Vol] 0.2 mg/dL Low 0.3-1.2 [facility] Comment on above: Performed By: #### C BENJAMIN WHEELER, 19606-1 #### [facility] ([id number]) [address] [place] [address] 45659 Calcium [Mass/Vol] 7.4 mg/dL Low 8.5-10.5 [facility] Comment on above: Performed By: #### C BENJAMIN WHEELER, 86927-4 #### [facility] ([id number]) [address] [place] [address] 83684 Chloride [Moles/Vol] 98 mmol/L Normal 98-109 [facility] Comment on above: Performed By: #### C BENJAMIN WHEELER, 77369-0 #### [facility] ([id number]) [address] [place] [address] 49100 CO2 [Moles/Vol] 27 mmol/L Normal 22-32 [facility] Comment on above: Performed By: #### C BENJAMIN WHEELER, 35364-0 #### [facility] ([id number]) [address] [place] [address] 38856 Creatinine [Mass/Vol] 0.48 mg/dL Normal 0.40-1.00 [facility] Comment on above: Result Comment: METH OD TRACEABLE TO IDMS STANDARD Performed By: #### C BENJAMIN WEHELER, 78937-4 #### [facility] ([id number]) [address] [place] [address] 31604 eGFR (CKD-EPI) NON-RACE DEPENDENT >90 Normal >59 [facility] Comment on above: Result Comment: Reported eGFR is based on the CKD-EPI 2020 equation that does not use a race coefficient. Performed By: #### C BENJAMIN WHEELER, 78690-1 #### [facility] ([id number]) [address] [place] [address] 04005 Glucose [Mass/Vol] 130 mg/dL High 65-99 [facility] Comment on above: Performed By: #### C BENJAMIN WHEELER, 36534-4 #### [facility] ([id number]) [address] [place] [address] 17620 Potassium [Moles/Vol] 2.9 mmol/L Low 3.5-5.0 [facility] Comment on above: Performed By: #### C BENJAMIN WHEELER, 17901-5 #### [facility] ([id number]) [address] [place] [address] 55467 Protein [Mass/Vol] 6.3 g/dL Normal 6.0-8.0 [facility] Comment on above: Performed By: #### C BENJAMIN WHEELER, 35190-9 #### [facility] ([id number]) [address] [place] [address] 55760 Sodium [Moles/Vol] 134 mmol/L Normal 134-146 [facility] Comment on above: Performed By: #### C BENJAMIN WHEELER, 22115-2 #### [facility] ([id number]) [address] [place] [address] 61428 Urea nitrogen [Mass/Vol] 5 mg/dL Normal 5-23 [facility] Comment on above: Performed By: #### C MP, CBCA, 59273-2 #### [facility] ([id number]) [address] [place] [address] BRAIN WO CONTon CT BRAIN WO CONT CT BRAIN WO CONT Exam: CT brain without contrast. CLINICAL HISTORY: Altered mental status TECHNIQUE: CT brain without intravenous contrast. COMPARISON: None FINDINGS: Cerebral atrophy. There are scattered periventricular hypodensity, consistent with chronic small vessel ischemic changes. There is no evidence of acute intracranial bleeding, mass effect, or CT evidence of acute ischemia/infarct. The midline structures are intact, no midline shift. The ventricles and basal cisterns are within normal limits. The brainstem and cerebellum are unremarkable. The visualized intraorbital contents are unremarkable. The paranasal sinuses and mastoid air cells are well aerated. No acute osseous abnormality in the visualized skull base and calvarium. IMPRESSION: No acute intracranial pathology. All CT scans at this facility use dose modulation, iterative reconstruction, and/or weight based dosing when appropriate to reduce radiation dose to as low as reasonably achievable. Finalized by Jimmy Weiner on 03/04/2024 5:54 PM Normal [facility] HCG ( test) Ql (U)o n 03-04-2024 Beta HCG ( test) Ql (U) Negative Normal NEG [facility] Comment on above: Performed By: #### 2 106-3 #### [facility] ([id number]) [address] [place] [address] 73765 Lactate (P alexander) [Moles/Vol]o n 03-04-2024 LACTATE W/REFLEX 2.1 mmol/L High 0.4-2.0 [facility] Comment on above: Performed By: #### 3 2133-1 #### [facility] ([id number]) [address] [place] [address] 52777 MAGNESIUMon 03-04-2024 Magnesium [Mass/Vol] 1.3 mg/dL Low 1.8-2.6 [facility] Comment on above: Performed By: #### 8 9579-7, 46616-6 #### [facility] ([id number]) [address] [place] [address] 74126 Troponin I.cardiac High sens itivity method [Mass/Vol]on 03-04-2024 1 HOUR TROP I, HIGH SENSITIVITY 8 ng/L Normal <16 [facility] Comment on above: Performed By: #### 8 9579-7, 82885-1 #### [facility] ([id number]) [address] [place] [address] 43225 TROPONIN I, HIGH SENSITIVITY 5 ng/L Normal <16 [facility] Comment on above: Performed By: #### C LIAM, CBCA, 25608-2 #### [facility] ([id number]) [address] [place] [address] 74412 URINE CULTUREon 03-04-2024 Bacteria identified Cx Nom (U) CULTURE RESULTS NO GROWTH AT <1000 CFU/mL Normal [facility] Comment on above: Performed By: #### C LIAM, CBCA, 29528-7 #### [facility] ([id number]) [address] [place] [address] 06203 URN MACROSCOPIC NURon 2023 BILIRUBIN RAYSA Negative Normal NEG [facility] Comment on above: Performed By: #### N UM #### [facility] ([id number]) [address] [place] [address] 24493 BLOOD/HGB RAYSA Trace Abnormal NEG [facility] Comment on above: Performed By: #### N UM #### [facility] ([id number]) [address] [place] [address] 49505 GLUCOSE RAYSA Negative Normal NEG [facility] Comment on above: Performed By: #### N UM #### [facility] ([id number]) [address] [place] [address] 28041 KETONES RAYSA Negative Normal NEG [facility] Comment on above: Performed By: #### N UM #### [facility] ([id number]) [address] [place] [address] 24114 LEUKOCYTE ESTERASE RAYSA Negative Normal NEG [facility] Comment on above: Performed By: #### N UM #### [facility] ([id number]) [address] [place] [address] 27413 NITRITE RAYSA Negative Normal NEG [facility] Comment on above: Performed By: #### N UM #### [facility] ([id number]) [address] [place] [address] 16323 PH RAYSA 7.0 Normal 5.0-8.5 [facility] Comment on above: Performed By: #### N UM #### [facility] ([id number]) [address] [place] [address] 52496 PROTEIN RAYSA Negative Normal NEG [facility] Comment on above: Performed By: #### N UM #### [facility] ([id number]) [address] [place] [address] 18631 SPECIFIC GRAVITY RAYSA 1.010 Normal 1.003-1.035 [facility] Comment on above: Performed By: #### N UM #### [facility] ([id number]) [address] [place] [address] 34932 UROBILINOGEN RAYSA 0.2 eu/dL Normal <1.1 [facility] Comment on above: Performed By: #### N UM #### [facility] ([id number]) [address] [place] [address] 31516 XR ankle LT min 3V*on 2022 XR ankle LT min 3V* [facility] Main [address] [address] XRay Report Signed Patient: Eneida Mejia MR#: [id number] 970 : 1975 Acct:[id number] Age/Sex: 47 / F ADM Date: 05/03/23 Loc: [facility] Room: Type: REG CLI Attending Dr: Rodrigo Hernandez DO Copies to: ALEXIS Encarnacion DO Ordering Provider: ALEXIS Encarnacion Date of Service: 05/03/23 XR/XR ankle LT min 3V*: Displaced fracture of distal end of left fibula LEFT ANKLE - 3 views CLINICAL HISTORY: Follow-up ORIF left ankle COMPARISON: Left ankle 04/05/2023 FINDINGS: Hardware is seen involving the distal fibula without evidence of hardware complication. Fracture line is less conspicuous suggestive of healing response. XR/XR ankle LT min 3V* IMPRESSION: HEALING DISTAL FIBULAR FRACTURE. NO HARDWARE COMPLICATION. Impression dictated by: Mack Estes Jr., D.OKarely05/03/2023 1:15 PM Dictation Location: [place] [address] Transcribed By: [facility] 05/03/23 1315 Dictated By: Mack Estes Jr, DO 05/03/23 1312 Signed By: 05/03/23 1315 Normal [facility] XR ankle LT min 3V*on 2022 XR ankle LT min 3V* [facility] Main [address] [address] XRay Report Signed Patient: Eneida Mejia MR#: [id number] 970 : 1975 Acct:[id number] Age/Sex: 47 / F ADM Date: 04/05/23 Loc: [facility] Room: Type: REG CLI Attending Dr: Rodrigo Hernandez DO Copies to: Rodrigo Hernandez DO Ordering Provider: Rodrigo Hernandez DO Date of Service: 04/05/23 XR/XR ankle LT min 3V*: Other specified postprocedural states;Personal history of (h LEFT ANKLE - 3 views CLINICAL DATA: Follow-up distal fibular fracture COMPARISON: 03/24/2023 AND 03/25/2023 (INTRAOPERATIVE) AP, lateral and oblique views were obtained. There is artifact from a posterior splint. There is redemonstration of a lateral plate and multiple screws at the distal fibula. The underlying fractures not well seen and there is no change in alignment. There is no new fracture or dislocation. There are no significant soft tissue abnormalities. XR/XR ankle LT min 3V* IMPRESSION: STABLE DISTAL FIBULAR FRACTURE AND FIXATION HARDWARE. Impression dictated by: May Sneed M.D.04/05/2023 1:26 PM Dictation Location: [place] [address] Transcribed By: [facility] 04/05/23 1326 Dictated By: May Sneed MD 04/05/23 1324 Signed By: 04/05/23 1326 Normal [facility] XR ankle LT min 3V* [facility] Other XR ankle LT min 3V* [facility] [place] [place] Main [facility] [employer] Other XR ankle LT min 3V* [address] [place] [address] [facility] Other XR ankle LT min 3V* [place] [address] [facility] Other XR ankle LT min 3V* XRay Report [facility] Other XR ankle LT min 3V* Signed [facility] Other XR ankle LT min 3V* Patient: Raghavendra Mejia MR#: [id number] [facility] Other XR ankle LT min 3V* 970 [facility] Other XR ankle LT min 3V* : 1975 Acct:[id number] [facility] Other XR ankle LT min 3V* Age/Sex: 47 / F ADM Date: 04/05/23 [facility] Other XR ankle LT min 3V* Loc: [facility] Room: Type : [facility] Other XR ankle LT min 3V* Attending Dr: Rodrigo Hernandez DO [facility] Other XR ankle LT min 3V* Copies to: Rodrigo Hernandez DO [facility] Other XR ankle LT min 3V* Ordering Provider: Rodrigo Hernandez DO [facility] Other XR ankle LT min 3V* Date of Service: 04/05/23 [facility] Other XR ankle LT min 3V* XR/XR ankle LT min 3V*: Other specified postprocedural states;Personal [facility] Other XR ankle LT min 3V* history of (h No [employer] Other XR ankle LT min 3V* LEFT ANKLE - 3 views [facility] Other XR ankle LT min 3V* CLINICAL DATA: Follow-up distal fibular fracture [facility] Other XR ankle LT min 3V* COMPARISON: 03/24/20 AND 03/25/2023 (INTRAOPERATIVE) [facility] Other XR ankle LT min 3V* AP, lateral and oblique views were obtained. There is artifact from a posterior splint. There is [facility] Other XR ankle LT min 3V* redemonstration of a lateral plate and multiple screws at the distal fibula. The underlying [facility] Other XR ankle LT min 3V* fractures not well seen and there is no change in alignment. There is no new fracture or [facility] Other XR ankle LT min 3V* dislocation. There a re no significant soft tissue abnormalities. [facility] Other XR ankle LT min 3V* XR/XR ankle LT min 3V* [facility] Other XR ankle LT min 3V* IMPRESSION: [facility] Other XR ankle LT min 3V* STABLE DISTAL FIBULA R FRACTURE AND FIXATION HARDWARE. [facility] Other XR ankle LT min 3V* Impression dictated by: May Sneed M.D.04/05/2023 1:26 PM [facility] Other XR ankle LT min 3V* Dictation Location: [place] [address] [facility] Other XR ankle LT min 3V* Transcribed By: PWS 04/05/23 1326 [facility] Other XR ankle LT min 3V* Dictated By: May Sneed MD 04/05/23 1324 [facility] Other XR ankle LT min 3V* Signed By: [facility] Other XR ankle LT min 3V* 04/05/23 1326 No rt [facility] Other HCG ( test) IA.ettai d Ql (U)Ordered By: Reji Oscar on 03-25-2023 HCG ( test) Ql (U) Negative [facility] HCG,Urineon 03-25-2023 Beta HCG ( test) Ql (U) Negative Normal [facility] Comment on above: Result Comment: PERF ORMED BY: [place] [address] PATHOLOGIST PRINTING PRESSMAN CARLOS HARGROVE M.D. Performed By: #### U HCG #### [address] XR ankle LT 2Von 03-25-2023 XR ankle LT 2V [facility] Main [place] [address] [place] [address] XRay Report Signed Patient: Eneida Mejia MR#: [id number] 970 : 1975 Acct:[id number] Age/Sex: 47 / F ADM Date: 03/25/23 Loc: [place] Room: Type: [facility] Attending Dr: Rodrigo Hernandez DO Copies to: Rodrigo Hernandez DO Ordering Provider: Rodrigo Hernandez DO Date of Service: 03/25/23 XR/XR ankle LT 2V: ORIF PORTABLE LEFT ANKLE - 13 images CLINICAL DATA: Intraoperative localization for fixation of distal fibular fracture COMPARISON: 03/24/2023 Multiple AP, lateral and oblique spot views of the ankle were obtained before and after placement of a plate and multiple screws along the distal fibula. The underlying fracture fragments are in satisfactory alignment. The ankle mortise is intact. Cumulative Air Kerma in mGy: 0.712 mGy Impression dictated by: May Sneed M.D.03/25/2023 4:51 PM Dictation Location: [place] [address] Transcribed By: [facility] 03/25/23 165 Dictated By: May Sneed MD 03/25/23 1648 Signed By: 03/25/23 165 Normal [facility] XR ankle LT min 3V*on 2022 XR ankle LT min 3V* [facility] [place] [address] XRay Report Signed Patient: Eneida Mejia MR#: [id number] 970 : 1975 Acct:[id number] Age/Sex: 47 / F ADM Date: 03/24/23 Loc: [facility] Room: Type: [facility] CL Attending Dr: Rosalba Cuevas PODIATRY PROFESSOR-C Copies to: ALEXIS Encarnacion Ordering Provider: ALEXIS Encarnacion Date of Service: 03/24/23 XR/XR ankle LT min 3V*: PAIN LEFT ANKLE - 3 views CLINICAL HISTORY: Follow-up left distal fibular fracture. COMPARISON: Left ankle series 03/18/2023 FINDINGS: Distal left fibular fracture grossly unchanged in alignment and healing compared to the prior study. Stress view demonstrates no widening of the ankle mortise. XR/XR ankle LT min 3V* IMPRESSION: NO SIGNIFICANT CHANGE IN FRACTURE FINDINGS. Impression dictated by: Mack Estes Jr., D.O.03/24/2023 4:23 PM Dictation Location: [facility]14 Transcribed By: [facility] 03/24/231622 Dictated By: Mack Estes Jr, DO 03/24/231622 Signed By: 03/24/231622 Normal [facility] XR ankle LT min 3V*on 2022 XR ankle LT min 3V* [facility] Other XR ankle LT min 3V* [facility] Other XR ankle LT min 3V* [address] [place] [address] [facility] Other XR ankle LT min 3V* [place] [id number] [facility] Other XR ankle LT min 3V* XRay Report [facility] Other XR ankle LT min 3V* Signed [facility] Other XR ankle LT min 3V* Patient: Raghavendra Mejia MR#: [id number] [facility] Other XR ankle LT min 3V* 970 [facility] Other XR ankle LT min 3V* : 1975 Acct:[id number] [facility] Other XR ankle LT min 3V* Age/Sex: 47 / F ADM Date: 03/18/23 [facility] Other XR ankle LT min 3V* Loc: [facility] Room: Type : REG I [facility] Other XR ankle LT min 3V* Attending Dr: Lori Cuevas NP-C [facility] Other XR ankle LT min 3V* Copies to: ALEXIS Encarnacion [facility] Other XR ankle LT min 3V* Ordering Provider: ALEXIS Encarnacion [facility] Other XR ankle LT min 3V* Date of Service: 03/18/23 [facility] Other XR ankle LT min 3V* XR/XR ankle LT min 3V*: PAIN [facility] Other XR ankle LT min 3V* LEFT ANKLE - 3 views [facility] Other XR ankle LT min 3V* CLINICAL DATA: Later al left ankle pain for the past day. No specific injury. [facility] Other XR ankle LT min 3V* COMPARISON: None [facility] Other XR ankle LT min 3V* AP, lateral and oblique views were obtained. An oblique is present at the distal fibular [facility] Other XR ankle LT min 3V* metaphysis. This is not significantly displaced. No other fractures or dislocation are noted. The [facility] Other XR ankle LT min 3V* talar dome is intact . There is mild lateral soft tissue swelling. [facility] Other XR ankle LT min 3V* XR/XR ankle LT min 3V* [facility] Other XR ankle LT min 3V* IMPRESSION: [facility] [employer] Other XR ankle LT min 3V* LATERAL MALLEOLAR FRACTURE. [facility] Other XR ankle LT min 3V* Impression dictated by: May Sneed M.D.03/18/2023 9:30 AM [facility] Other XR ankle LT min 3V* Dictation Location: [place] [address] [facility] Other XR ankle LT min 3V* Transcribed By: REE 03/18/23929 [facility] Other XR ankle LT min 3V* Dictated By: May Sneed MD 03/18/239[address] Located [facility] [employer] Other XR ankle LT min 3V* Signed By: [facility] Other XR ankle LT min 3V* 03/18/[address] [facility] Other XR ankle LT min 3V* [facility] Main [place] [address] [place] [address] XRay Report Signed Patient: Eneida Mejia MR#: [id number] 970 : 1975 Acct:[id number] Age/Sex: 47 / F ADM Date: 03/18/23 Loc: [facility] Room: Type: [facility] Attending Dr: Rosalba NICKERSONC Copies to: ALEXIS Encarnacion Ordering Provider: ALEXIS Encarnacion Date of Service: 03/18/23 XR/XR ankle LT min 3V*: PAIN LEFT ANKLE - 3 views CLINICAL DATA: Lateral left ankle pain for the past day. No specific injury. COMPARISON: None AP, lateral and oblique views were obtained. An oblique is present at the distal fibular metaphysis. This is not significantly displaced. No other fractures or dislocation are noted. The talar dome is intact. There is mild lateral soft tissue swelling. XR/XR ankle LT min 3V* IMPRESSION: LATERAL MALLEOLAR FRACTURE. Impression dictated by: May Sneed M.D.03/18/2023 9:30 AM Dictation Location: [facility] Transcribed By: [facility] 03/18/23929 Dictated By: May Sneed MD 03/18/23927 Signed By: 03/18/23929 Normal [facility] HCG ( test) IA.ettai d Ql (U)on 08-31-2018 HCG ( test) Ql (U) Negative Negative [facility] Urine culture routineon 06-13 Bacteria identified Cx Nom (U) 2 Days [facility] Albumin [Mass/volume] in Ser um or Plasmaon 06-21-2018 Albumin [Mass/Vol] 4.1 g/dL 3.2-5.5 [facility] Automated erythrocytes count in urine sediment (number/area)on 06-21-2018 RBC Auto (Urine sed) [#/Area] 5-9 [HPF] 0-4 [facility] Automated leukocytes count i n urine sediment (number/area)on 06-21-2018 WBC Auto (Urine sed) [#/Area] 5-9 [HPF] 0-4 [facility] Basophils Auto (Bld) [#/Vol] on 06-21-2018 Basophils (Bld) [#/Vol] 0.0 10*3/uL 0.0-0.2 [facility] Basophils/100 WBC Auto (Bld) on 06-21-2018 Basophils/100 WBC (Bld) 0.7 % . [facility] Bilirubin Test strip Ql (U)o n 06-21-2018 Bilirubin Ql (U) Negative Negative [facility] Cholesterol [Mass/volume] in Serum or Plasmaon 06-21-2018 Cholesterol [Mass/Vol] 188 mg/dL 140-200 [facility] Comment on above: Chol less than 200 m g/dl low riskChol 201-239 mg/dl borderline riskChol 240 mg/dl and greater high risk Cholesterol in LDL Calc [Mas s/Vol]on 06-21-2018 Cholesterol in LDL [Mass/Vol] 81 mg/dL 0-100 [facility] Comment on above: LDL ATP III CLASSIFI CATIONLDL less than 100 mg/dL OptimalLDL 100-129 mg/dL Near or above optimalLDL 130-159 mg/dL Borderline highLDL 160-189 mg/dL HighLDL greater than 189 mg/dL Very high Cholesterol in VLDL Calc [Ma ss/Vol]on 06-21-2018 Cholesterol in VLDL [Mass/Vol] 11 mg/dL [facility] Color Auto (U)on 06-21-2018 Color (U) Yellow Yellow [facility] Creatinine and Glomerular fi ltration rate.predicted panel (S/P/Bld)on 06-21-2018 Creatinine [Mass/Vol] 0.63 mg/dL 0.44-1.03 [facility] Eosinophils Auto (Bld) [#/Vo l]on 06-21-2018 Eosinophils (Bld) [#/Vol] 0.0 10*3/uL 0.0-0.45 [facility] Eosinophils/100 WBC Auto (Bl d)on 06-21-2018 Eosinophils/100 WBC (Bld) 0.9 % . [facility] Erythrocyte distribution wid th Auto (RBC) [Ratio]on 06-21-2018 Erythrocyte distribution width (RBC) [Ratio] 12.2 % 11.9-15.3 [facility] Estimated glomerular filtrat ion rate (GFR) non- Americanon 06-21-2018 GFR/1.73 sq M.predicted among non-blacks MDRD (S/P/Bld) [Vol rate/Area] mL/min/{1.73_m2} [facility] Globulin Calc (S) [Mass/Vol] on 06-21-2018 Globulin (S) [Mass/Vol] 2.8 g/dL [facility] Glucose mean value [Mass/vol ume] in Blood Estimated from glycated hemoglobinon 06-21-2018 Average glucose Estimated from glycated hemoglobin (Bld) [Mass/Vol] 100 mg/dL [facility] HbA1c (Bld)on 06-21-2018 HbA1c (Bld) [Mass fraction] 5.1 % 4.3-5.6 [facility] Comment on above: Increased risk for d iabetes: 5.7 - 6.4diabetes: >6.4glycemic control for adults with diabetes: <7.0 Hematocrit Auto (Bld) [Volum e fraction]on 06-21-2018 Hematocrit (Bld) [Volume fraction] 39.8 % 34.0-46.4 [facility] Hemoglobin [Mass/volume] in Bloodon 06-21-2018 Hemoglobin (Bld) [Mass/Vol] 13.4 g/dL 11.8-15.4 [facility] Ketones Auto test strip (U) [Mass/Vol]on 06-21-2018 Ketones (U) [Mass/Vol] Negative Negative [facility] Laboratory - Chemistry and C hemistry - challengeon 06-21-2018 Cholesterol.total/Ch olesterol in HDL [Mass ratio] 2.0 {ratio} <5.0 [facility] GFR/1.73 sq M.predicted among blacks MDRD (S/P/Bld) [Vol rate/Area] mL/min/{1.73_m2} [facility] Comment on above: GFR estimated refere nce range: According to KDOQI guidelines, <60 ml/min/1.73m2 is sufficient to diagnose a patient with chronic kidney disease. Laboratory - Urinalysison Hyaline casts LM Ql (Urine sed) 0-8 [LPF] 0-8 [facility] Leukocytes [#/volume] in Blo od by Automated counton 06-21-2018 WBC (Bld) [#/Vol] 4.9 10*3/uL 4.5-11.0 [facility] Lymphocytes Auto (Bld) [#/Vo l]on 06-21-2018 Lymphocytes (Bld) [#/Vol] 1.0 10*3/uL 1.00-4.8 [facility] Lymphocytes/100 WBC Auto (Bl d)on 06-21-2018 Lymphocytes/100 WBC (Bld) 21.2 % . [facility] MCH Auto (RBC) [Entitic mass ]on 06-21-2018 MCH (RBC) [Entitic mass] 33.4 pg 24.7-34.3 [facility] MCHC Auto (RBC) [Mass/Vol]on 06-21-2018 MCHC (RBC) [Mass/Vol] 33.7 g/dL 32.0-35.0 [facility] MCV Auto (RBC) [Entitic vol] on 06-21-2018 MCV (RBC) [Entitic vol] 98.8 fL 80-100 [facility] Monocytes Auto (Bld) [#/Vol] on 06-21-2018 Monocytes (Bld) [#/Vol] 0.4 10*3/uL 0.0-0.8 [facility] Monocytes/100 WBC Auto (Bld) on 06-21-2018 Monocytes/100 WBC (Bld) 7.5 % . [facility] Neutrophils Auto (Bld) [#/Vo l]on 06-21-2018 Neutrophils (Bld) [#/Vol] 3.4 10*3/uL 1.8-7.7 [facility] Neutrophils/100 WBC Auto (Bl d)on 06-21-2018 Neutrophils/100 WBC (Bld) 69.7 % . [facility] Nitrite Test strip Ql (U)on 06-21-2018 Nitrite Ql (U) Negative Negative [facility] No Panel Informationon 06-21 Pharmacy Creatinine Clearance (Chem N/A [facility] Platelet mean volume Auto (B ld) [Entitic vol]on 06-21-2018 Platelet mean volume (Bld) [Entitic vol] 8.0 fL 6.3-10.7 [facility] Platelets Auto (Bld) [#/Vol] on 06-21-2018 Platelets (Bld) [#/Vol] 216 10*3/uL 150-450 [facility] Protein Auto test strip (U) [Mass/Vol]on 06-21-2018 Protein (U) [Mass/Vol] Negative Negative [facility] Protein [Mass/volume] in Ser um or Plasmaon 06-21-2018 Protein [Mass/Vol] 6.9 g/dL 6.1-7.9 [facility] RBC Auto (Bld) [#/Vol]on RBC (Bld) [#/Vol] 4.03 10*6/uL 3.60-5.00 [facility] Serum or plasma alanine garcia otransferase measurement without P-5'-P (enzymatic activion 06-21-2018 ALT No additional P-5'-P [Catalytic activity/Vol] 26 U/L 10-60 [facility] Serum or plasma albumin/glob ulin mass ratioon 06-21-2018 Albumin/Globulin [Mass ratio] 1.5 {ratio} [facility] Serum or plasma alkaline sushil sphatase measurement (enzymatic activity/volume)on 06-21-2018 ALP [Catalytic activity/Vol] 47 U/L 32-92 [facility] Serum or plasma aspartate am inotransferase measurement (enzymatic activity/volume)on 06-21-2018 AST [Catalytic activity/Vol] 37 U/L 10-42 [facility] Serum or plasma calcium tom urement (mass/volume)on 06-21-2018 Calcium [Mass/Vol] 8.9 mg/dL 8.2-10.2 [facility] Serum or plasma chloride lillie surement (moles/volume)on 06-21-2018 Chloride [Moles/Vol] 102 mmol/L 95-114 [facility] Serum or plasma glucose tom urement (mass/volume)on 06-21-2018 Glucose [Mass/Vol] 81 mg/dL 70-100 [facility] Comment on above: ADA recommended refe rence rangeRandom Glucose Reference Range is dependent on time and content of last meal. Glucose of more than 200 mg/dL in a nonstressed, ambulatory subject supports the diagnosis of Diabetes Mellitus. Serum or plasma high density lipoprotein (HDL) cholesterol measurementon 06-21-2018 Cholesterol in HDL [Mass/Vol] 95 mg/dL 35-85 [facility] Comment on above: HDL CHOL ATP-III CLA SSIFICATION Cardiovascular RiskHDL > or equal to 60 mg/dL LOWHDL < 40 mg/dL HIGH Serum or plasma potassium me asurement (moles/volume)on 06-21-2018 Potassium [Moles/Vol] 3.7 mmol/L 3.5-5.1 [facility] Serum or plasma sodium measu rement (moles/volume)on 06-21-2018 Sodium [Moles/Vol] 137 mmol/L 136-146 [facility] Serum or plasma total biliru bin measurement (mass/volume)on 06-21-2018 Bilirubin [Mass/Vol] 0.6 mg/dL 0.3-1.2 [facility] Serum or plasma total carbon dioxide measurement (moles/volume)on 06-21-2018 CO2 [Moles/Vol] 24.5 mmol/L 22.0-30.0 [facility] Serum or plasma urea nitroge n measurement (mass/volume)on 06-21-2018 Urea nitrogen [Mass/Vol] 8 mg/dL 9-23 [facility] Specific gravity Auto test s trip (U) [Rel density]on 06-21-2018 Specific gravity (U) [Rel density] 1.018 1.001-1.030 [facility] Squamous epithelial cells de tection in urine sediment by light microscopyon 06-21-2018 Epithelial cells.squamous LM Ql (Urine sed) 10-19 [HPF] 0-2 [facility] TSH DL <= 0.005 mIU/L Qnon 0 06-21-2018 TSH Qn 0.72 m[IU]/L 0.45-5.33 [facility] Thyroxine (T4) free [Mass/vo lume] in Serum or Plasmaon 06-21-2018 Free T4 [Mass/Vol] 0.63 ng/dL 0.61-1.12 [facility] Triglyceride [Mass/volume] i n Serum or Plasmaon 06-21-2018 Triglyceride [Mass/Vol] 59 mg/dL 35-149 [facility] Comment on above: TRIG ATP III CLASSIF ICATIONTRIG less than 150 mg/dL NormalTRIG 150-199 mg/dL Borderline highTRIG 200-500 mg/dL High TRIG greater than 500 mg/dL Very highStandard traceable to the Center for Disease Conrtrol and Prevention (CDC) test method. Urine bacteria detection by automated methodon 06-21-2018 Bacteria Auto Ql (U) 1+ None Seen [facility] Urine clarity by refractomet ry automatedon 06-21-2018 Clarity Refractometry automated (U) Cloudy Clear [facility] Urine culture routineon Bacteria identified Cx Nom (U) 2 Days [facility] Urine glucose measurement by automated test strip (mass/volume)on 06-21-2018 Glucose Auto test strip (U) [Mass/Vol] Normal mg/dL Normal [facility] Urine hemoglobin detection b y automated test stripon 06-21-2018 Hemoglobin Auto test strip Ql (U) Trace Negative [facility] [facility] Urine leukocyte esterase det ection by automated test stripon 06-21-2018 Leukocyte esterase Auto test strip Ql (U) 1+ Negative [facility] Urobilinogen Auto test strip (U) [Mass/Vol]on 06-21-2018 Urobilinogen (U) [Mass/Vol] Normal mg/dL Normal [facility] pH Auto test strip (U)on pH (U) 6.0 [pH] 5.0-9.0 [facility] Vital Signs Date Time Vital Sign Value Performing Clinician Faci lity 03-25-2023 17:42-0400 Diastolic blood pressure 82 mm[Hg] BRINE PROCESS OPERATOREmeterio Adorno Work Phone: [facility] 03-25-2023 17:42-0400 Respiratory rate 16 /min BRINE PROCESS OPERATOREmeterio Adorno Work Phone: [facility] 03-25-2023 17:42-0400 SaO2% (BldA) [Mass fraction] 97 % BRINE PROCESS OPERATOREmeterio Adorno Work Phone: [facility] 03-25-2023 17:42-0400 Systolic blood pressure 137 mm[Hg] BRINE PROCESS OPERATOREmeterio Adorno Work Phone: [facility] 03-25-2023 16:54-0400 Heart rate 86 /min BRINE PROCESS OPERATOREmeterio Adorno Work Phone: [facility] 03-25-2023 16:19-0400 Body temperature 99.5 [degF] BILL Adorno Work Phone: [facility] 03-25-2023 16:19-0400 Inhaled oxygen flow rate 6 L/min BRINE PROCESS OPERATOREmeterio Adorno Work Phone: [facility] 03-25-2023 14:31-0400 Body height 170.18 cm BILL Adorno Work Phone: [facility] 03-25-2023 14:31-0400 Body mass index (BMI) [Ratio] 18.8 kg/m2 BRINE PROCESS OPERATOREmeterio Adorno Work Phone: [facility] 03-25-2023 14:31-0400 Body weight 54.43 kg BILL Adorno Work Phone: [facility] 06-16-2022 08:15-0500 Body temperature 97.7 [degF] BILL Adorno Work Phone: [facility] 06-16-2022 08:15-0500 Body weight 56.9 kg BILL Wester Work Phone: [facility] 06-16-2022 08:15-0500 Diastolic blood pressure 63 mm[Hg] BILL Adorno Work Phone: [facility] 06-16-2022 08:15-0500 Heart rate 98 /min BILL Adorno Work Phone: [facility] 06-16-2022 08:15-0500 Respiratory rate 20 /min BRINE PROCESS OPERATOREmeterio Adorno Work Phone: [facility] 06-16-2022 08:15-0500 SaO2% (BldA) [Mass fraction] 96 % BILL Adorno Work Phone: [facility] 06-16-2022 08:15-0500 Systolic blood pressure 128 mm[Hg] BILL Adorno Work Phone: [facility] 05-31-2022 09:12-0500 Body temperature 97.8 [degF] BRINE PROCESS OPERATOREmeterio Adorno Work Phone: [facility] 05-31-2022 09:12-0500 Diastolic blood pressure 99 mm[Hg] BILL Adorno Work Phone: [facility] 05-31-2022 09:12-0500 Heart rate 100 /min BRINE PROCESS OPERATOREmeterio Adorno Work Phone: [facility] 05-31-2022 09:12-0500 Respiratory rate 18 /min BILL Adorno Work Phone: [facility] 05-31-2022 09:12-0500 SaO2% (BldA) [Mass fraction] 98 % BILL Adorno Work Phone: [facility] 05-31-2022 09:12-0500 Systolic blood pressure 148 mm[Hg] BILL Adorno Work Phone: [facility] 12-16-2021 08:160400 Body height 169.01 cm BILL Adorno Work Phone: [facility] 12-16-2021 08:16 Body weight 57.87 kg BILL Adorno Work Phone: [facility] Encounters Encounter Date Encounter Type Care Provider Facility Start: 03-04-2024 End: 03-05-2024 Emergency department patient [facility] Start: 06-14-2023 End: 06-14-2023 ambulatory Rodrigo Hernandez Other [facility] Other Start: 06-14-2023 Postop follow up vis it related to original px Rodrigo Mary [facility] Start: 05-03-2023 Postop follow up vis it related to original px Rodrigo Mary [facility] Start: 05-03-2023 End: 05-03-2023 ambulatory Rodrigo A Mary [facility] Other Start: 05-03-2023 End: 05-03-2023 Patient encounter procedure BILL Adorno Work Phone: [facility] Start: 04-05-2023 Office outpatient ne w 45 minutes Rodrigo Hernandez [facility] Start: 04-05-2023 End: 04-05-2023 ambulatory Rosalba Adorno Facility:[facility] Start: 04-05-2023 End: 04-05-2023 ambulatory BILL Adorno Work Phone: [facility] Work Phone: Start: 04-05-2023 End: 04-05-2023 Patient encounter procedure BILL Adorno Work Phone: [facility] Start: 03-25-2023 End: 03-25-2023 ambulatory Rosalba Adorno Facility:[facility] Start: 03-25-2023 End: 03-25-2023 Admission to same day surgery center BILL Adorno Work Phone: [facility] [place] Start: 03-25-2023 End: 03-25-2023 ambulatory BILL Adorno Work Phone: [facility] Work Phone: Start: 03-24-2023 End: 03-24-2023 ambulatory Rosalba Adorno Facility:[facility] Start: 03-24-2023 End: 03-24-2023 Patient encounter procedure BILL Adorno Work Phone: [facility] Start: 03-24-2023 End: 03-24-2023 ambulatory BILL Adorno Work Phone: [facility] Work Phone: Start: 03-24-2023 Encounter for other preprocedural examination [facility] Start: 03-24-2023 Office outpatient vi sit 25 minutes [facility] Start: 03-18-2023 (OrthoExp) Ortho [facility] Start: 03-18-2023 End: 03-18-2023 ambulatory Rosalba Adorno Located Within [facility] Other Start: 03-18-2023 End: 03-18-2023 Patient encounter procedure BILL Adorno Work Phone: [facility] Start: 06-16-2022 End: 06-16-2022 ambulatory BILL Adorno Work Phone: [facility] Work Phone: Start: 06-16-2022 End: 06-16-2022 Registered Recurring BRINE PROCESS OPERATOREmeterio Adorno [facility] Work [facility]: Start: 05-31-2022 End: 05-31-2022 ambulatory BILL Adorno Work Phone: [facility] Work Phone: Start: 05-31-2022 End: 05-31-2022 Registered Recurring BRINE PROCESS OPERATOREmeterio Adorno [facility] Start: 10-13-2020 End: 10-14-2020 ambulatory MARINE ZALDIVAR Facility:[facility] Start: 09-22-2020 End: 09-23-2020 ambulatory MARINE ZALDIVAR Facility:[facility] Start: 10-12-2018 Patient encounter procedure Vivek Wells Facility:[id number] Start: 10-06-2018 Patient encounter procedure RAJENDER K MORGAN Facility:[id number] Start: 10-05-2018 Patient encounter procedure RAJENDER K MORGAN Facility:[id number] Start: 10-04-2018 Patient encounter procedure RAJENDER K MORGAN Facility:[id number] Start: 10-03-2018 Patient encounter procedure RAJENDER K MORGAN Facility:[id number] Start: 10-02-2018 Patient encounter procedure RAJENDER K MORGAN Facility:[id number] Start: 09-29-2018 Patient encounter procedure RAJENDER K MORGAN Facility:[id number] Start: 09-28-2018 Patient encounter procedure RAJENDER K MORGAN Facility:[id number] Start: 09-27-2018 Patient encounter procedure RAJENDER K MORGAN Facility:[id number] Start: 09-26-2018 Patient encounter procedure RAJENDER K MORGAN Facility:[id number] Start: 09-25-2018 Patient encounter procedure RAJENDER K MORGAN Facility:[id number] Start: 09-22-2018 Patient encounter procedure RAJENDER K MORGAN Facility:[id number] Start: 09-21-2018 Patient encounter procedure RAJENDER K MORGAN Facility:[id number] Start: 09-20-2018 Patient encounter procedure RAJENDER K MORGAN Facility:[id number] Start: 09-19-2018 Patient encounter procedure RAJENDER K MORGAN Facility:[id number] Start: 09-18-2018 Patient encounter procedure RAJENDER K MORGAN Facility:[id number] Start: 09-15-2018 Patient encounter procedure MARGARITA MORA Facility:[id number] Start: 09-14-2018 Patient encounter procedure MARGARITA MORA Facility:[id number] Start: 09-13-2018 Patient encounter procedure MARGARITA MORA Facility:[id number] Start: 09-12-2018 Patient encounter procedure MARGARITA MORA Facility:[id number] Start: 09-11-2018 Patient encounter procedure MARGARITA MORA Facility:[id number] Start: 09-08-2018 Patient encounter procedure MARGARITA MORA Facility:[id number] Start: 09-05-2018 Patient encounter procedure MARGARITA MORA Facility:[id number] Start: 08-31-2018 Patient encounter procedure MARGARITA MORA Facility:[id number] Start: 08-11-2018 Patient encounter procedure Vivek Wells Facility:[id number] Procedures Date Procedure Procedure Detail Performing Clinician Start: 05-03-2023 X-ray of left ankle APR N Rosalba Adorno Work Phone: Start: 04-05-2023 X-ray of left ankle APR N Rosalba Adorno Work Phone: Start: 03-25-2023 X-ray of left ankle APR N Rosalba Adorno Work Phone: Start: 03-25-2023 Open reduction of fr acture with internal fixation BRINE PROCESS OPERATOR Rosalba Adorno Work Phone: Start: 03-24-2023 X-ray of left ankle APR N Rosalba Adorno Work Phone: Start: 03-18-2023 X-ray of left ankle APR N Rosalba Adorno Work Phone: Start: 06-01-2022 Screening mammograph y of bilateral breasts BRINE PROCESS OPERATOREmeterio Adorno Work Phone: Start: 06-21-2018 Urine culture BRINE PROCESS OPERATOR Argensi Adorno Work Phone: Urine culture BRINE PROCESS OPERATOR Rosalba Adorno Work Phone: Plan of Treatment Date Care Activity Detail Author Start: 03-25-2023 End: 03-25-2023 [facility] MG Breast - bilatera l Screening [facility] Patient Education Quitting smoking [facility] Work Phone: [facility] Payers Date Payer Category Payer Unknown [id number] 2.16. [id number] 1975 Unknown [id number] 2.16. 840.1.628177.3.579.2. 1975 Unknown [id number] 2.16. 840.1.792106.3.579.2. 1975 Unknown [id number] 2.16. 840.1.235801.3.579.2. 1975 Unknown [id number] 2.16. 840.1.030579.3.579.2. 1975 Unknown [id number] 2.16. 840.1.571250.3.579.2. 1975 Unknown [id number] 2.16. 840.1.709630.3.579.2.356 1975 Unknown [id number] 2.16. 840.1.168203.3.579.2. 1975 Unknown [id number] 2.16. 840.1.961224.3.579.2. 1975 Unknown [id number] 2.16. 840.1.094606.3.579.2. 1975 Unknown [id number] 2.16. 840.1.770313.3.579.2.356 1975 Unknown [id number] 2.16. 840.1.764658.3.579.2. 1975 Unknown [id number] 2.16. 840.1.528194.3.579.2. 1975 Unknown [id number] 2.16. 840.1.247904.3.579.2. 1975 Unknown [id number] 2.16. 840.1.356281.3.579.2.356 1975 Unknown [id number] 2.16. 840.1.822698.3.579.2.356 1975 Unknown [id number] 2.16. 840.1.285812.3.579.2.356 1975 Unknown [id number] 2.16. 840.1.736746.3.579.2.356 1975 Unknown [id number] 2.16. 840.1.470888.3.579.2.356 1975 Unknown [id number] 2.16. 840.1.164528.3.579.2.356 1975 Unknown [id number] 2.16. 840.1.741001.3.579.2.356 1975 Unknown [id number] 2.16. 840.1.740219.3.579.2.356 1975 Unknown [id number] 2.16. 840.1.077861.3.579.2.356 1975 Unknown [id number] 2.16. 840.1.633051.3.579.2.356 1975 Unknown [id number] 2.16. 840.1.577240.3.579.2.356 1975 Unknown [id number] 2.16. 840.1.517538.3.579.2.356 1975 Unknown [id number] 2.16. 840.1.381461.3.579.2.356 1975 Unknown [id number] 2.16.84 0.1.516679.3.579.2.593 1975 Unknown [id number] 2.16.84 0.1.913357.3.579.2.593 1959 Unknown [id number] Medicaid [id number] Self-pay Self Pay [id number] Social History Date Type Detail Facility Start: 12-16-2021 End: 12-16-2021 Tobacco smoking status OHIS Current some day smoker [facility] Start: 1975 Sex Assigned At Female F [facility] Sex Assigned At Sex Assigned At Bir th Located Within [facility] Other Start: 03-25-2023 End: 03-25-2023 Tobacco smoking status OHIS Smoker (finding) [facility] Medical Equipment Procedure Code Equipment Code Equipment Origin al Text Equipment Identifier Dates ORIF, fracture, ankle Orthopaedic fixation plate, non-bioabsorbable, non-sterile ()[id number] FDA Start: 03-25-2023 ORIF, fracture, ankle Orthopaedic bone screw, non-bioabsorbable, non-sterile ()[id number] FDA Start: 03-25-2023 ORIF, fracture, ankle Orthopaedic bone screw, non-bioabsorbable, non-sterile ()[id number] FDA Start: 03-25-2023 ORIF, fracture, ankle Orthopaedic bone screw, non-bioabsorbable, non-sterile ()[id number] FDA Start: 03-25-2023 ORIF, fracture, ankle Orthopaedic bone screw, non-bioabsorbable, non-sterile ()[id number] FDA Start: 03-25-2023 ORIF, fracture, ankle Orthopaedic bone screw, non-bioabsorbable, non-sterile ()[id number] FDA Start: 03-25-2023 ORIF, fracture, ankle Orthopaedic bone screw, non-bioabsorbable, non-sterile ()[id number] FDA Start: 03-25-2023 Goals Date Patient Goal Desired Activity /State Clinical Notes 06-21-2018 to 06-14-2023 Note Date & Type Note Facility 06-14-2023 Evaluation note Encounter Date Diagnosis Assessment Notes Jun, Other specified postprocedural states (ICD-10 - Z98.890) She continues to progress from surgery. We discussed she can discontinue the CAM walking boot. She continues to have numbness laterally. We discussed this is common and can take time for that to go away. We discussed the numbness may not go away, however I anticipate it will go away. We discussed she can start driving her own car. Advised she should continue to work on range of motion, calf stretching, and strenghtening at home, some exercises were demonstrated. She can follow up with me on an as needed basis if her symptoms return. Jun, Personal history of (healed) traumatic fracture (ICD-10 - Z87.81) [facility] Other 11-21-2023 Evaluation note* Encounter Date Diagnosis Assessment Notes Treatment Notes Treatment Clinical Notes Apr, Other specified postprocedural states (ICD-10 - Z98.890) She continues to progress from surgery. She can discontinue crutches and progress to weight bearing with boot for 2 more weeks, she can come out of the boot to continue working on ankle range of motion. After that she can discontinue the boot and start driving again. We discussed she can use a compression sleeve to help with stability once she is done with the walking boot. I anticipate she will be able to return to work after she discontinues the boot, however I advised she slowly progress back to work by starting with half shifts to see what she is able to tolerate. She will follow up with me in 6 weeks for reevaluation. Apr, Personal history of (healed) traumatic fracture (ICD-10 - Z87.81) [facility] Other 10-24-2023 Evaluation note* Encounter Date Diagnosis Assessment Notes Treatment Notes Treatment Clinical Notes Mar, Other specified postprocedural states (ICD-10 - Z98.890) Patient is progressing well from surgery. Incision clean and dry, sutures were removed today, patient tolerated it well. Discussed she is to remain non-weight bearing for 4 weeks, in 2 weeks she can start working on ankle range of motion. Mar, Personal history of (healed) traumatic fracture (ICD-10 - Z87.81) [facility] Other 10-12-2023 Evaluation note* Encounter Date Diagnosis Assessment Notes Treatment Notes Treatment Clinical Notes Mar, Acute left ankle pain (ICD-10 - M25.572) Mar, Other closed fracture of distal end of left fibula with routine healing, subsequent encounter (ICD-10 - S82.832D) The patient has suffered a displaced distal fibula fracture and syndesmotic widening. Due to fracture displacment we are recommending surgical treatment to improve anatomic alignment. We discussed the importance of icing and elevation of the leg above the heart to prevent swelling. We discussed that this injury will most likely cause pain for many months and potentially cause ocean transportation intermediary pain and stiffness. We have discussed the many potential complications of surgery including respiratory, cardiac, and patient positioning during anesthesia. The risks of DVT, scarring, ocean transportation intermediary pain, non union, hardware failure, development of arthritis and need for future surgery were all discussed. Patient is aware and would like to proceed. Post op medications sent in with instructions on use. Advised patient she will still need to be non weightbearing for a period of weeks post op, stressed the importance of this. Mar, Syndesmotic disruption of left ankle, initial encounter (ICD-10 - S93.432A) Mar, Pre-op exam (ICD-10 - Z01.818) Mar, Current smoker (ICD-10 - F17.200) Advised patient on the increased surgical risks secondary to smoking and advised on smoking cessation. [facility] Other 10-06-2023 Evaluation note* Encounter Date Diagnosis Assessment Notes Treatment Notes Treatment Clinical Notes Mar, Displaced fracture of distal end of left fibula (ICD-10 - S82.832A) Spoke with Dr. Greco and X-ray reviewed with him. X-ray reviewed and results discussed with patient. The patient has suffered a minimally displaced distal fibula fracture. We discussed the importance of icing and elevation of the leg above the heart to prevent swelling and remaining non-weight bearing. If ankle shows further displacement, we will consider surgery. Patient is in need of a cam walker boot due to their diagnosis of left distal fibula fracture. This is needed for aid in activities of daily living by increasing safety and stability. Mar, Acute left ankle pain (ICD-10 - M25.572) [facility] Other 01-04-2023 Progress note Author Carmela Sewell [facility] June 16, 2022 8:34am Note Date/Time June 16, 2022 8: 30am [facility] at [address] [address] Hem/Onc Follow Up Note - OP Signed Patient: Eneida Mejia MR#: [id number] : 1975 Acct:[id number] Age/Sex: 47 / F Type: REG RCR Copies to: Tomi Salas, DO Rosalba Adorno APRN, CNP~ Subjective Date/Time of Service: Date of Service: 06/16/2022 Time of Service: 08:28 Chief Complaint: Patient is here for a 6 month follow up for left breast cancer with mammogram for review. No concerns voiced. HPI: 06/16/2022: Weston has no new complaints. Notes that she has some allergies sincerecently getting a new rescue dog and thinks she has some sensitivity. She may use any [id number] nondrowsy allergy medicine such as Claritin or Rachna as this should not interact with her tamoxifen. Otherwise she notes that since decreasing tamoxifen to 10 mg daily in April 2021, she has had less hot flashes and overall tolerates the medication with stable mood and sex drive. Otherwise her mammogram shows no evidence of recurrence and no abnormalities on breast exam. She is no longer following with general surgery (it has been over 1 year) so we will continue to follow-up with her in 6 months with PODIATRY PROFESSOR exam. [facility] 20-minute follow-up visit. 12/16/2021: Eneida presents for follow-up for her breast cancer on tamoxifen. Sheis doing well today, denies hot flashes or any s/s DVT. She has tolerable mood swings and her sex drive is ok with the low dose tamoxifen. She denies n/v/d, constipation, dyspnea, chest pain or new bone pain anywhere. She denies any new complaints. We will continue with follow-up in 6 months. Her next mammogram willbe prior to follow- up in May. 06/17/2021: 6-week follow-up after changing tamoxifen to 10 mg daily due to her mood swings and excessive hot flashes. She notes that she tolerated this dose much better after stopping tamoxifen 8 months prior to last visit due to decreased sex drive. She otherwise feels that her symptoms on lower dose tamoxifen are reasonable for her to continue therapy for another 2 years to complete 5 years of therapy. I did offer her Effexor at low-dose for mood swings and hot flashes but she declined that at this time. May 2021 screening mammogram was reviewed showing no evidence of malignancy. Exam was deferred today since she was last examined in April. Next follow-up in 6 months for exam and review of symptoms. 04/29/2021: Ms. Mejia presented to the outpatient clinic for 1 year follow-up and transfer of care from my former partner Dr. Vivek Wells, status post left breastlumpectomy 07/28/2018. She stopped Tamoxifen 8 months ago due to decreased sex drive. She reports no issues with any tumor, shortness of breath, chest pain, leg pain/edema, or abdominal vaginal bleeding (she had no menses while on Tamoxifen, now monthly with normal flow and duration). She continues followup with Dr. Salas (but has not seen him in over one year), and denies any breast skin changes or lumps. No recurrence on last breast MRI 08/2019--no mammogram over the past 2 years. We discussed that given her young age and premenopausal status, she has increased risk of recurrence. She is willing to resume Tamoxifen at reduced dose 10mg daily--we discussed possible Effexor that could be prescribed for hot flashes, mood swings, and sex drive. I will have her followup in one month after annual mammogram (overdue) and to review tolerance and compliance with medication. Thereafter, I will continue every 6 month followup, sooner prn. - Summary of Therapies Summary of Therapies: Summary of Therapies: 1. Left breast lumpectomy and sentinel biopsy on 07/28/[address] Salas. 2. Adjuvant radiation: 09/11/18- 10/06/18, 4256 cGy in 16 fractions, followed by an additional boost of 1000 cGy to the area of the tumor bed, total 5256 cGy in 20 fractions over 25 elapsed days. 3. Adjuvant endocrine with Tamoxifen, 20mg, PO, daily, 10/12/18-stopped on her own 08/2020 for poor tolerance. --04/2021: She resumed Tamoxifen 10mg po daily (declined AI with GnRH agonist)--continuing for 5-10 year course if well-tolerated due to younger age at diagnosis. ROS Details: All systems reviewed & no additional complaints except as documented Subjective/ROS - Narrative: Constitutional: Negative: chills, fatigue, fever, night sweats, weakness HEENT: Negative: Blurred vision, pain, epistaxis, rhinorrhea, sore throat Cardiovascular: Negative: Chest pain, edema, palpitations Respiratory: Negative: Cough, shortness of breath, hemoptysis Gastrointestinal: Negative: pain, bloating, constipation, diarrhea, nausea, vomiting Genitourinary: Negative: Frequency, dysuria, flank pain, hematuria Genitalia: Negative: Discharge, masses, hernia--prior hot flashes resolved, menses now monthly and normal duration/flow. Breasts: Negative: Pain, mass, discharge, dimpling Neurologic: Negative: Dizziness, headache, numbness, tingling Psychiatric: Negative: Anxiety, depression, sleep changes--prior mood swings with full dose Tamoxifen--improved with 10 mg dose. Hematologic/lymphatic: Negative: Bleeding, bruising, enlarged lymph nodes Endocrine: Negative: Excessive sweating, flushing, intolerance to cold, intolerance to heat, weight gain/loss Allergic/immunology: Negative: Pruritus, rash PMFSH - History Attestation statement: The following information was validated with the patient. Source: Old Records Reviewed - Medical History Medical History: Medical History (Last Reviewed 06/16/22 @ 08:30 by Carmela Sewell MD) Restless leg syndrome - Surgical History Surgical History: Surgical History (Last Reviewed 06/16/22 @ 08:30 by Carmela Sewell MD) History of lumpectomy of left breast and sentinel node bx 07/28/2018 - Social History Smoking Status: Current some day smoker Tobacco Type: cigarettes Substance Use Type: Alcohol Substance Abuse Comment: social Social History Comments: works with a [employer] and [employer]. one son. Home Medications & Allergies Allergies morphine Allergy (Verified 06/16/22 08:15) Unknown Reaction band aid adhesive Allergy (Uncoded 06/17/21 08:02) Rash Home Medications ibuprofen 200 mg tablet 800 mg PO Q4-6H PRN Pain 07/21/18 [History Confirmed 06/16/22] ropinirole 0.5 mg tablet 0.5 mg PO QHS PRN leg pain 07/21/18 [History Confirmed 06/16/22] tamoxifen 10 mg tablet 10 mg PO DAILY 90 days #90 tabs 11/30/21 [Rx Confirmed 06/16/22] Objective - Height/Weight Height/Weight: Height 5 ft 6.54 in Weight 56.9 kg - Vital Signs Vital Signs: 06/16/22 08:15 Temperature 97.7 F Pulse Rate [Left Brachial] 98 H Respiratory Rate 20 Blood Pressure [Right Arm] 128/63 02 Sat by Pulse Oximetry 96 Oxygen Delivery Method Room Air - Pain Left Breast Pain Intensity: 0 - Distress Screening Distress Screen Results: RN Distress Screening Start: 08/11/18 12:59 Freq: Status: Active Protocol: Document 01/16/19 08:44 BG (Rec: 01/16/19 08:44 BG [id number]) Distress Screening Distress Score: 0 No worry/distress Distress Screening Total 0 Physical Exam Narrative: GENERAL APPEARANCE: In no acute distress. HEENT: No scleral icterus or cervical lymphadenopathy. LUNGS: Clear to auscultation bilaterally, no rales, rhonchi, or crackles. CARDIOVASCULAR: S1 and S2, regular rate and rhythm, no murmurs, gallops, rubs. ABDOMEN: Soft, nontender, bowel sounds normal. No hepatosplenomegaly. No mass palpated. EXTREMITIES: No edema or calf tenderness. NEUROLOGIC: Grossly intact. Normal gait and nonfocal exam. Breast exam: Well healed left lumpectomy scar. No masses or skin changes, no nipple discharge or deviation. No axillary adenopathy noted. Right breast unremarkable. - ECOG Performance Status ECOG Score: 1 Results - Labs Labs: Diagram of Most Recent CBC and CMP 06/21/18 10:53 06/21/18 10:53 - Impressions BILATERAL SCREENING MAMMOGRAMS - FULL FIELD DIGITAL WITH TOMOSYNTHESIS AND CAD Tomosynthesis craniocaudal and mediolateral oblique views of both breasts were obtained using low-dose digital technique. Comparison is made to prior studies from May 18, 2018 (left) through May 20, 2021. This examination was reviewed with the aid of CAD. The breast parenchyma is heterogeneously dense. There is postoperative scarringand hemostasis clips at the axillary tail on the left. Benign calcifications are visualized. There are no developing masses, typically malignant calcifications or architectural distortion. There has been no significant interval change. MM/MM screening mammo BI w/CAD IMPRESSION: NO MAMMOGRAPHIC EVIDENCE OF MALIGNANCY. ROUTINE FOLLOW-UP IS RECOMMENDED IN ONE YEAR. RESULT CODE: 2 Benign Findings(s) DENSITY CODE: 3 (approximately 51-75% glandular) FOLLOW UP: 1YR The false-negative rate of mammography is approximately 10-percent. Management of a palpable abnormality must be based on clinical grounds. Patient was entered into a reminder system with a target due date for the next mammogram. Impression dictated by: May Sneed M.D.06/01/2022 8:36 AM Assessment and Plan - TNM Staging Staging: Left breast moderate differentiated (Grade 2, Alejandro score 7) pT2 (22mm), pN0, M0--ER +90%, NY+ 95%, Her2 equivocal IHC/negative FISH. Oncotype Dx recurrence score 9 (3% risk distant recurrence)--07/2018 (1) Carcinoma of upper-outer quadrant of left breast in female, estrogen receptor positive Ms. Mejia presented to the outpatient clinic for a 3-month follow-up status postleft breast lumpectomy and sentinel biopsy 07/28/2018. -Low Oncotype DX, on adjuvant tamoxifen, no symptoms to suggest recurrence or DVT/PE or endometrial cancer, exam benign. She was concerned about low sex drive, mood swings and hot flashes. -Dr. Vivek Wells had a lengthy discussion re: alternatives and expectation and ways to cope with this. She agreed to continue Tamoxifen at last visit 04/2020 and discussed with her boyfriend re: decision moving forward. She saw Dr. Juarez one year ago--breast exams were benign. 04/2021: Overdue for mammogram and no f/u exams with Dr. Salas this year. She stopped Tamoxifen 08/2020 on her own due to side effects noted above. She agreed to resume lower dose Tamoxifen 10mg daily and f/u one month to assess tolerance and compliance with therapy. Consider adding Effexor if vasomotor symptoms and mood swings. She will have mammogram that was ordered today and agrees to arrange f/u with Dr. Salas. 06/2021: Mammogram without evidence of malignancy. Tolerating tamoxifen 10 mg daily better than prior visits. She declines Effexor for vasomotor symptoms andmood swings. Next follow-up 6 months or sooner as needed. 12/16/2021: She continues to do well on low dose tamoxifen with much more tolerable side effects (mood wings, decreased sex drive). No evidence of recurrence on exam today. She is due for her next mammogram in May, and will follow-up in 6 months, sooner as needed. She is in agreement with this planand has no questions. 06/16/2022: Patient has no new symptoms on low dose tamoxifen and we discussed lack of significant medication interactions between tamoxifen and [id number] allergy medicines. Her mammogram and exam showed no evidence of recurrence. Continue follow-up every 6 months or sooner if new symptoms arise. Low complexity 20- minute follow-up visit. (2) Encounter for monitoring tamoxifen therapy Tolerating well. On tamoxifen 10 mg daily. Anticipate 5-year course to be completed around October 2023--if reasonably well-tolerated may extend to 10 years of therapy. - Chemo Plan Chemo Plan (Dose, Rate, Freq): Adjuvant endocrine with Tamoxifen, 20mg, PO, daily, 10/12/18-stopped on her own 08/2020 for poor tolerance. --04/2021: we discussed resuming Tamoxifen 10mg po daily (declined AI with GnRH agonist). Plan at least 5-10 years total therapy. Goal of Treatment: Curative - Time with Patient Time Spent with Patient (Follow Up Visit): Less than 20 minutes - Low complexityvisit, discuss Tamoxifen tolerance at lower dose, mammography results from 05/2022 Coordination of Care & Counseling Time: Greater than 50% of time spent with patient was for coordination of care (as documented) and [id number]-he-[id number] counseling of patient and/or family. Dictated By: Carmela Sewell MD DD/ 0828 Signed By: <Electronically signed by MD Carmela Sewell> 06/16/22 0834 [facility] Work Phone: 1([phone]) 559-684912-19-2022 Progress note Author Margarita Mora [facility] May 31, 2022 12:42pm Note Date/Time May 31, 2022 12:32pm [facility] at [address] [place] [address] Rad Onc Follow Up Note - OP Signed Patient: Eneida Mejia MR#: [id number] : 1975 Acct:[id number] Age/Sex: 47 / F Type: REG RCR Copies to: MD Tomi Sarmiento DO Jennifer Hacker BRINE PROCESS OPERATOR, CAMERA ASSEMBLER~ Subjective - Service Date/Time Date: 05/31/22 Time: 10:00 - Diagnosis 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 Observation and annual mammograms were recommended and and her next mammogram in April 2018 showed enlarging mass in the same area. Patient had lumpectomy and sentinel node biopsy on 07/28/2018. Final pathology report confirmed a 2.2 cm invasive ductal carcinoma with associated ductal carcinoma insitu and the margins of resection were negative. 2 lymph nodes in the axilla was also negative and her pathological staging was pT2 pN0 M0. The ER/NY receptors were positive and the HER-2/marcin was negative. Patient did have resection of a hematoma from the lumpectomy site on 08/11/2018 and subsequently, she had healed well. Patient also had a Oncotype testing and her Oncotype scorewas 9 (low risk). Dr. Doyle had seen the patient and she did not receive any systemic therapy but she did undergo primary radiation therapy treatments to herleft breast with completion of her treatments in September 2018. Post- radiation, shewas started on tamoxifen but she only took it for few months and stopped taking it. Subsequently, Dr. Sewell reduce the dose of tamoxifen and patient continues to take them without any issues. She missed her last mammograms last week and this was rescheduled for next week. She returned today for her scheduled radiation oncology follow-up and her only complaint is slight fullness of the left breast with occasional discomfort. I reassured her and told her that thesewere expected post-surgical and post-radiation side effects and should resolve over period of time. She has no complaints of any breast lumps, arm swelling, cough, sore throat, difficulty in swallowing, headaches, nausea, back pain, abdominal discomfort, urinary or bowel problems, intermenstrual bleeding, leg swelling, motor or sensory changes. She has been active and her appetite is good and weight remains stable. No complaint of fever, chills or night sweats. I've closely reviewed the patient's oncologic, medical, surgical, social, and family history. Changes noted above. I also reviewed the patient's medicationsvia reconciliation, as per the nursing record. - Review of Systems ROS: As per HPI. Objective Height 5 ft 6.54 in Weight 57.878 kg Temp 97.8 F 05/31/22 09:12 Pulse 100 H 05/31/22 09:12 Resp 18 05/31/22 09:12 BP 148/99 H 05/31/22 09:12 Pulse Ox 98 05/31/22 09:12 O2 Del Method Room Air 05/31/22 09:12 Pain: 0/10 Distress Screen Results: RN Distress Screening Start: 08/11/18 12:59 Freq: Status: Active Protocol: Document 01/16/19 08:44 BG (Rec: 01/16/19 08:44 BG [email or web address]) Distress Screening Distress Score: 0 No worry/distress Distress Screening Total 0 Karnofsky Performance Scale: 90%: Can perform normal activity, minor signs of disease Physical Exam: Physical examination today shows an alert, oriented pleasant female who is in no acute distress. HEENT examination did not reveal any cranial neuropathy. No palpable cervical or supraclavicular lymphadenopathy. Local exam of left breast shows mild swelling as compared to the right and the cosmetic result is moderately good. The surgical scar in the upper outer quadrant is well-healed and there is moderate indentation of the skin (as expected from her lumpectomy and prior radiation) and there is still some residual underlying post-operative thickening and induration as expected. No discrete palpable mass in the left breast or axilla. Cosmetic result is moderate. Right breast and axilla are are also without any masses. She has no lymphedema of the left upper extremity. Her lungs are clear to auscultation. Cardiac examination is unremarkable. No spinal or paraspinal tenderness. Abdomen is soft and nontender and there is no palpable mass or organomegaly. Pelvic and rectal examination were not done and patient states that she had a Pap smear which was reported negative. She has no leg edema. She remains neurologically stable including her motor, sensory and cerebellar functions. 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 On today's examination, she has no clinical evidence of residual or recurrent disease in the left or right breast. Patient will continue on her tamoxifen and also follows up regularly with Dr. Sewell. She missed her follow-up mammogram appointment last week and this will be rescheduled for next week. She will return for her next scheduled ration oncology follow-up in 1 year. Dictated By: Margarita Mora MD DD/ 1231 Signed By: <Electronically signed by Margarita Mora MD> 05/31/22 1242 [facility] Work Phone: [phone]) 481-126807-06-2022 Progress note Author Jessica Spangler [facility] December 16, 2021 8:41am Note Date/Time December 16, 2021 8:37a m [facility] [place] [address] Hem/Onc Follow Up Note - OP Signed Patient: Eneida Mejia MR#: [id number] : 1975 Acct:[id number] Age/Sex: 46 / F Type: REG RCR Copies to: MD Tomi Sarmiento, DO Rosalba Adorno APRN, CAMERA ASSEMBLER~ Subjective Date/Time of Service: Date of Service: 12/16/2021 Time of Service: 08:32 Chief Complaint: Patient is here for a 6 month follow up, taking Tamoxifen. She reports brain fog and states that it has taken her period away again. HPI: 12/16/2021: Eneida presents for follow-up for her breast cancer on tamoxifen. Sheis doing well today, denies hot flashes or any s/s DVT. She has tolerable mood swings and her sex drive is ok with the low dose tamoxifen. She denies n/v/d, constipation, dyspnea, chest pain or new bone pain anywhere. She denies any new complaints. We will continue with follow-up in 6 months. Her next mammogram willbe prior to follow- up in May. 06/17/2021: 6-week follow-up after changing tamoxifen to 10 mg daily due to her mood swings and excessive hot flashes. She notes that she tolerated this dose much better after stopping tamoxifen 8 months prior to last visit due to decreased sex drive. She otherwise feels that her symptoms on lower dose tamoxifen are reasonable for her to continue therapy for another 2 years to complete 5 years of therapy. I did offer her Effexor at low-dose for mood swings and hot flashes but she declined that at this time. May 2021 screening mammogram was reviewed showing no evidence of malignancy. Exam was deferred today since she was last examined in April. Next follow-up in 6 months for exam and review of symptoms. 04/29/2021: Ms. Mejia presented to the outpatient clinic for 1 year follow-up and transfer of care from my former partner Dr. Vivek Wells, status post left breastlumpectomy 07/28/2018. She stopped Tamoxifen 8 months ago due to decreased sex drive. She reports no issues with any tumor, shortness of breath, chest pain, leg pain/edema, or abdominal vaginal bleeding (she had no menses while on Tamoxifen, now monthly with normal flow and duration). She continues followup with Dr. Salas (but has not seen him in over one year), and denies any breast skin changes or lumps. No recurrence on last breast MRI 08/2019--no mammogram over the past 2 years. We discussed that given her young age and premenopausal status, she has increased risk of recurrence. She is willing to resume Tamoxifen at reduced dose 10mg daily--we discussed possible Effexor that could be prescribed for hot flashes, mood swings, and sex drive. I will have her followup in one month after annual mammogram (overdue) and to review tolerance and compliance with medication. Thereafter, I will continue every 6 month followup, sooner prn. - Summary of Therapies Summary of Therapies: Summary of Therapies: 1. Left breast lumpectomy and sentinel biopsy on 07/28/[address] Salas. 2. Adjuvant radiation: 09/11/18- 10/06/18, 4256 cGy in 16 fractions, followed by an additional boost of 1000 cGy to the area of the tumor bed, total 5256 cGy in 20 fractions over 25 elapsed days. 3. Adjuvant endocrine with Tamoxifen, 20mg, PO, daily, 10/12/18-stopped on her own 08/2020 for poor tolerance. --04/2021: She resumed Tamoxifen 10mg po daily (declined AI with GnRH agonist)--continuing for 5-year course after accessing for tolerance 06/17/2021. ROS Details: All systems reviewed & no additional complaints except as documented PMF - Medical History Medical History: Medical History (Last Reviewed 06/17/21 @ 08:19 by Carmela Sewell MD) Restless leg syndrome - Surgical History Surgical History: Surgical History (Last Reviewed 06/17/21 @ 08:19 by Carmela Sewell MD) History of lumpectomy of left breast and sentinel node bx 07/28/2018 - Social History Smoking Status: Current some day smoker Tobacco Type: cigarettes Substance Use Type: Alcohol Substance Abuse Comment: social Social History Comments: works with a [employer] and [employer]. one son. Home Medications & Allergies Allergies morphine Allergy (Verified 12/16/21 08:16) Unknown Reaction band aid adhesive Allergy (Uncoded 06/17/21 08:02) Rash Home Medications ibuprofen 200 mg tablet 800 mg PO Q4-6H PRN 07/21/18 [History Confirmed 12/16/21] ropinirole 0.5 mg tablet 0.5 mg PO QHS PRN 07/21/18 [History Confirmed 12/16/21] tamoxifen 10 mg tablet 10 mg PO DAILY 90 Days #90 tab 11/30/21 [Rx Confirmed 12/16/21] Objective - Height/Weight Height/Weight: Height 5 ft 6.54 in Weight 57.878 kg - Vital Signs Vital Signs: 12/16/21 08:16 Temperature 97.7 F Pulse Rate [Left Brachial] 86 Respiratory Rate 20 Blood Pressure [Right Arm] 150/92 H 02 Sat by Pulse Oximetry 97 - Pain Left Breast Pain Intensity: 0 - Distress Screening Distress Screen Results: RN Distress Screening Start: 08/11/18 12:59 Freq: Status: Active Protocol: Document 01/16/19 08:44 BG (Rec: 01/16/19 08:44 BG [email or web address]) Distress Screening Distress Score: 0 No worry/distress Distress Screening Total 0 Physical Exam Narrative: GENERAL APPEARANCE: In no acute distress. HEENT: No scleral icterus or cervical lymphadenopathy. LUNGS: Clear to auscultation bilaterally, no rales, rhonchi, or crackles. CARDIOVASCULAR: S1 and S2, regular rate and rhythm, no murmurs, gallops, rubs. ABDOMEN: Soft, nontender, bowel sounds normal. No hepatosplenomegaly. No mass palpated. EXTREMITIES: No edema or calf tenderness. NEUROLOGIC: Grossly intact. Normal gait and nonfocal exam. Breast exam: Well healed left lumpectomy scar. No masses or skin changes, no nipple discharge or deviation. No axillary adenopathy noted. Right breast unremarkable. Results - Labs Labs: Diagram of Most Recent CBC and CMP 06/21/18 10:53 06/21/18 10:53 Assessment and Plan - TNM Staging Staging: Left breast moderate differentiated (Grade 2, [place] score 7) pT2 (22mm), pN0, M0--ER +90%, NY+ 95%, Her2 equivocal IHC/negative FISH. Oncotype Dx recurrence score 9 (3% risk distant recurrence)--07/2018 (1) Carcinoma of upper-outer quadrant of left breast in female, estrogen receptor positive Ms. Mejia presented to the outpatient clinic for a 3-month follow-up status postleft breast lumpectomy and sentinel biopsy 07/28/2018. -Low Oncotype DX, on adjuvant tamoxifen, no symptoms to suggest recurrence or DVT/PE or endometrial cancer, exam benign. She was concerned about low sex drive, mood swings and hot flashes. -Dr. Vivek Wells had a lengthy discussion re: alternatives and expectation and ways to cope with this. She agreed to continue Tamoxifen at last visit 04/2020 and discussed with her boyfriend re: decision moving forward. She saw Dr. Juarez one year ago--breast exams were benign. 04/2021: Overdue for mammogram and no f/u exams with Dr. Salas this year. She stopped Tamoxifen 08/2020 on her own due to side effects noted above. She agreed to resume lower dose Tamoxifen 10mg daily and f/u one month to assess tolerance and compliance with therapy. Consider adding Effexor if vasomotor symptoms and mood swings. She will have mammogram that was ordered today and agrees to arrange f/u with Dr. Salas. 06/2021: Mammogram without evidence of malignancy. Tolerating tamoxifen 10 mg daily better than prior visits. She declines Effexor for vasomotor symptoms andmood swings. Next follow-up 6 months or sooner as needed. 12/16/2021: She continues to do well on low dose tamoxifen with much more tolerable side effects (mood wings, decreased sex drive). No evidence of recurrence on exam today. She is due for her next mammogram in May, and will follow-up in 6 months, sooner as needed. She is in agreement with this planand has no questions. (2) Encounter for monitoring tamoxifen therapy Tolerating well. On tamoxifen 10 mg daily. Anticipate 5-year course to be completed around October 2023--if reasonably well-tolerated may extend to June 2024 since she was off therapy 8 months for poor tolerance. - Chemo Plan Chemo Plan (Dose, Rate, Freq): Adjuvant endocrine with Tamoxifen, 20mg, PO, daily, 10/12/18-stopped on her own 08/2020 for poor tolerance. --04/2021: we discussed resuming Tamoxifen 10mg po daily (declined AI with GnRH agonist). Plan at least 5 years total therapy. Goal of Treatment: Curative - Time with Patient Time Spent with Patient (Follow Up Visit): Less than 20 minutes - Low complexityvisit, discuss Tamoxifen tolerance at lower dose, mammography results from 05/2021 Coordination of Care & Counseling Time: Greater than 50% of time spent with patient was for coordination of care (as documented) and [id number] counseling of patient and/or family. Dictated By: Jessica Spangler APRN DD/ 0832 Signed By: <Electronically signed by BILL Spangler> 12/16/[address] [facility] Work Phone: 1([phone]) 451-331001-05-2022 Progress note Author Carmela Sewell [facility] June 17, 2021 8:24am Note Date/Time June 17, 2021 8: 07am [facility] at [address] [address] Hem/Onc Follow Up Note - OP Signed Patient: Eneida Mejia MR#: [id number] : 1975 Acct:[id number] Age/Sex: 46 / F Type: REG RCR Copies to: DO Rosalba Rodriguez APRN, CAMERA ASSEMBLER~ Subjective Date/Time of Service: Date of Service: 06/17/2021 Time of Service: 08:06 Chief Complaint: Patient is here today for a 6 week follow up visit and had her mamogram 05/20/2021. She states taking the Tamoxifen has been ok just some mood swings not as bad as past HPI: 06/17/2021: 6-week follow-up after changing tamoxifen to 10 mg daily due to her mood swings and excessive hot flashes. She notes that she tolerated this dose much better after stopping tamoxifen 8 months prior to last visit due to decreased sex drive. She otherwise feels that her symptoms on lower dose tamoxifen are reasonable for her to continue therapy for another 2 years to complete 5 years of therapy. I did offer her Effexor at low-dose for mood swings and hot flashes but she declined that at this time. May 2021 screening mammogram was reviewed showing no evidence of malignancy. Exam was deferred today since she was last examined in April. Next follow-up in 6 months for exam and review of symptoms. 04/29/2021: Ms. Mejia presented to the outpatient clinic for 1 year follow-up and transfer of care from my former partner Dr. Vivek Wells, status post left breastlumpectomy 07/28/2018. She stopped Tamoxifen 8 months ago due to decreased sex drive. She reports no issues with any tumor, shortness of breath, chest pain, leg pain/edema, or abdominal vaginal bleeding (she had no menses while on Tamoxifen, now monthly with normal flow and duration). She continues followup with Dr. Salas (but has not seen him in over one year), and denies any breast skin changes or lumps. No recurrence on last breast MRI 08/2019--no mammogram over the past 2 years. We discussed that given her young age and premenopausal status, she has increased risk of recurrence. She is willing to resume Tamoxifen at reduced dose 10mg daily--we discussed possible Effexor that could be prescribed for hot flashes, mood swings, and sex drive. I will have her followup in one month after annual mammogram (overdue) and to review tolerance and compliance with medication. Thereafter, I will continue every 6 month followup, sooner prn. - Summary of Therapies Summary of Therapies: Summary of Therapies: 1. Left breast lumpectomy and sentinel biopsy on 07/28/[address] Salas. 2. Adjuvant radiation: 09/11/18- 10/06/18, 4256 cGy in 16 fractions, followed by an additional boost of 1000 cGy to the area of the tumor bed, total 5256 cGy in 20 fractions over 25 elapsed days. 3. Adjuvant endocrine with Tamoxifen, 20mg, PO, daily, 10/12/18-stopped on her own 08/2020 for poor tolerance. --04/2021: She resumed Tamoxifen 10mg po daily (declined AI with GnRH agonist)--continuing for 5-year course after accessing for tolerance 06/17/2021. ROS Details: All systems reviewed & no additional complaints except as documented Subjective/ROS - Narrative: Constitutional: Negative: chills, fatigue, fever, night sweats, weakness HEENT: Negative: Blurred vision, pain, epistaxis, rhinorrhea, sore throat Cardiovascular: Negative: Chest pain, edema, palpitations Respiratory: Negative: Cough, shortness of breath, hemoptysis Gastrointestinal: Negative: pain, bloating, constipation, diarrhea, nausea, vomiting Genitourinary: Negative: Frequency, dysuria, flank pain, hematuria Genitalia: Negative: Discharge, masses, hernia--prior hot flashes resolved, menses now monthly and normal duration/flow. Breasts: Negative: Pain, mass, discharge, dimpling Neurologic: Negative: Dizziness, headache, numbness, tingling Psychiatric: Negative: Anxiety, depression, sleep changes--prior mood swings with full dose Tamoxifen--improved with 10 mg dose. Hematologic/lymphatic: Negative: Bleeding, bruising, enlarged lymph nodes Endocrine: Negative: Excessive sweating, flushing, intolerance to cold, intolerance to heat, weight gain/loss Allergic/immunology: Negative: Pruritus, rash PMFSH - History Attestation statement: The following information was validated with the patient. Source: Old Records Reviewed - Medical History Medical History: Medical History (Last Reviewed 06/17/21 @ 08:19 by Carmela Sewell MD) Restless leg syndrome - Surgical History Surgical History: Surgical History (Last Reviewed 06/17/21 @ 08:19 by Carmela Sewell MD) History of lumpectomy of left breast and sentinel node bx 07/28/2018 - Social History Smoking Status: Current some day smoker Tobacco Type: cigarettes Substance Use Type: Alcohol Substance Abuse Comment: social Social History Comments: works with a [employer] and [employer]. one son. Home Medications & Allergies Allergies morphine Allergy (Verified 06/17/21 08:02) Unknown Reaction band aid adhesive Allergy (Uncoded 06/17/21 08:02) Rash Home Medications ibuprofen 200 mg tablet 800 mg PO Q4-6H PRN 07/21/18 [History Confirmed 06/17/21] ropinirole 0.5 mg tablet 0.5 mg PO QHS PRN 07/21/18 [History Confirmed 06/17/21] tamoxifen 10 mg tablet 10 mg PO DAILY 90 Days #30 tab 06/17/21 [Rx] Objective - Height/Weight Height/Weight: Height 5 ft 6.54 in Weight 62.142 kg - Vital Signs Vital Signs: 06/17/21 08:03 Temperature 98.0 F Pulse Rate [Left Brachial] 92 H Respiratory Rate 20 Blood Pressure [Right Arm] 145/83 H 02 Sat by Pulse Oximetry 97 - Pain Left Breast Pain Intensity: 0 - Distress Screening Distress Screen Results: RN Distress Screening Start: 08/11/18 12:59 Freq: Status: Active Protocol: Document 01/16/19 08:44 BG (Rec: 01/16/19 08:44 BG [email or web address]) Distress Screening Distress Score: 0 No worry/distress Distress Screening Total 0 Physical Exam Narrative: GENERAL APPEARANCE: In no acute distress. Full exam deferred, see exam below from 04/29/2021. HEENT: No scleral icterus or cervical lymphadenopathy. LUNGS: Clear to auscultation bilaterally, no rales, rhonchi, or crackles. CARDIOVASCULAR: S1 and S2, regular rate and rhythm, no murmurs, gallops, rubs. ABDOMEN: Soft, nontender, bowel sounds normal. No hepatosplenomegaly. No mass palpated. EXTREMITIES: No edema or calf tenderness. NEUROLOGIC: Grossly intact. Normal gait and nonfocal exam. Breast exam: Well healed left lumpectomy scar. No masses or skin changes, no nipple discharge or deviation. Right breast unremarkable. - ECOG Performance Status ECOG Score: 0 Results - Labs Labs: Diagram of Most Recent CBC and CMP 06/21/18 10:53 06/21/18 10:53 - Impressions Date of Service: 05/20/21 MM/MM diagnostic mammo BI w/CAD: Yrly mamms;History of breast cancer Copies to: DO Rosabla Rodriguez APRN, [employer]~ CLINICAL DATA: Previous left breast cancer. BILATERAL DIAGNOSTIC MAMMOGRAMS - FULL FIELD DIGITAL WITH TOMOSYNTHESIS AND CAD Tomosynthesis craniocaudal and mediolateral oblique views of both breasts were obtained using low-dose digital technique. Comparison is made to prior studies from March 09, 2017 through May 01, 2019. This examination was reviewed with the aid of CAD. The breast parenchyma is heterogeneously dense. There is postoperative scarringand hemostasis clips at the central lateral left breast posteriorly. Benign calcifications are again visualized. There are no developing masses, typically malignant calcifications or architectural distortion. There has been no significant interval change. MM/MM diagnostic mammo BI w/CAD IMPRESSION: NO MAMMOGRAPHIC EVIDENCE OF MALIGNANCY. ROUTINE FOLLOW-UP IS RECOMMENDED IN ONE YEAR. RESULT CODE: 2 Benign Findings(s) DENSITY CODE: 3 (approximately 51-75% glandular) FOLLOW UP: 1YR The false-negative rate of mammography is approximately 10-percent. Management of a palpable abnormality must be based on clinical grounds. Patient was entered into a reminder system with a target due date for the next mammogram. Impression dictated by: May Sneed M.D.05/20/2021 9:37 AM Assessment and Plan - TNM Staging Staging: Left breast moderate differentiated (Grade 2, [place] score 7) pT2 (22mm), pN0, M0--ER +90%, NY+ 95%, Her2 equivocal IHC/negative FISH. Oncotype Dx recurrence score 9 (3% risk distant recurrence)--07/2018 (1) Carcinoma of upper-outer quadrant of left breast in female, estrogen receptor positive Ms. Mejia presented to the outpatient clinic for a 3-month follow-up status postleft breast lumpectomy and sentinel biopsy 07/28/2018. -Low Oncotype DX, on adjuvant tamoxifen, no symptoms to suggest recurrence or DVT/PE or endometrial cancer, exam benign. She was concerned about low sex drive, mood swings and hot flashes. -Dr. Vivek Wells had a lengthy discussion re: alternatives and expectation and ways to cope with this. She agreed to continue Tamoxifen at last visit 04/2020 and discussed with her boyfriend re: decision moving forward. She saw Dr. Juarez one year ago--breast exams were benign. 04/2021: Overdue for mammogram and no f/u exams with Dr. Salas this year. She stopped Tamoxifen 08/2020 on her own due to side effects noted above. She agreed to resume lower dose Tamoxifen 10mg daily and f/u one month to assess tolerance and compliance with therapy. Consider adding Effexor if vasomotor symptoms and mood swings. She will have mammogram that was ordered today and agrees to arrange f/u with Dr. Salas. 06/2021: Mammogram without evidence of malignancy. Tolerating tamoxifen 10 mg daily better than prior visits. She declines Effexor for vasomotor symptoms andmood swings. Next follow-up 6 months or sooner as needed. -Low complexity visit over 15 minutes for review of side effects and mammogram. (2) Encounter for monitoring tamoxifen therapy Tolerating well. Refill of tamoxifen 10 mg daily #90, refill 3. Anticipate 5- year course to be completed around October 2023--if reasonably well-tolerated may extend to June 2024 since she was off therapy 8 months for poor tolerance. - Chemo Plan Chemo Plan (Dose, Rate, Freq): Adjuvant endocrine with Tamoxifen, 20mg, PO, daily, 10/12/18-stopped on her own 08/2020 for poor tolerance. --04/2021: we discussed resuming Tamoxifen 10mg po daily (declined AI with GnRH agonist)--assess tolerance 05/2021. Plan at least 5 years total therapy. Goal of Treatment: Curative - Time with Patient Time Spent with Patient (Follow Up Visit): Less than 20 minutes - Low complexityvisit, discuss Tamoxifen tolerance at lower dose, mammography results from 05/2021 Coordination of Care & Counseling Time: Greater than 50% of time spent with patient was for coordination of care (as documented) and [id number] counseling of patient and/or family. Dictated By: Carmela Sewell MD DD/ 5 Signed By: <Electronically signed by MD Carmela Sewell> 06/17/[address] [facility] Work Phone: 1([phone]) 595-954811-18-2021 Progress note Author Carmela Sewell [facility] April 30, 2021 5:25pm Note Date/Time April 29, 2021 3:26pm [facility] [place] [address] Hem/Onc Follow Up Note - OP Signed Patient: Eneida Mejia MR#: [id number] : 1975 Acct:[id number] Age/Sex: 45 / F Type: REG RCR Copies to: DO Rosalba Rodriguez APRN, [employer]~ Subjective Date/Time of Service: Date of Service: 04/29/2021 Time of Service: 15:25 Chief Complaint: Patient is here today for 1 year follow up visit for breast cancer. She took herself off Tamoxifen about 8 months ago d/t not liking the side affects. She has been having left breast that comes and goes HPI: Ms. Mejia presented to the outpatient clinic for 1 year follow-up and transfer of care from my former partner Dr. Vivek Wells, status post left breast lumpectomy 07/28/2018. She stopped Tamoxifen 8 months ago due to decreased sex drive. She reports no issues with any tumor, shortness of breath, chest pain, leg pain/edema, or abdominal vaginal bleeding (she had no menses while on Tamoxifen,now monthly with normal flow and duration). She continues followup with Dr. Salas (but has not seen him in over one year), and denies any breast skin changes or lumps. No recurrence on last breast MRI 08/2019--no mammogram over the past 2 years. We discussed that given her young age and premenopausal status, she has increased risk of recurrence. She is willing to resume Tamoxifen at reduced dose 10mg daily--we discussed possible Effexor that could be prescribed for hot flashes, mood swings, and sex drive. I will have her followup in one month after annual mammogram (overdue) and to review tolerance and compliance with medication. Thereafter, I will continue every 6 month followup, sooner prn. - Summary of Therapies Summary of Therapies: Summary of Therapies: 1. Left breast lumpectomy and sentinel biopsy on 07/28/[address] Salas. 2. Adjuvant radiation: 09/11/18- 10/06/18, 4256 cGy in 16 fractions, followed by an additional boost of 1000 cGy to the area of the tumor bed, total 5256 cGy in 20 fractions over 25 elapsed days. 3. Adjuvant endocrine with Tamoxifen, 20mg, PO, daily, 10/12/18-stopped on her own 08/2020 for poor tolerance. --04/2021: we discussed resuming Tamoxifen 10mg po daily (declined AI with GnRH agonist)--assess tolerance 05/2021. ROS Details: All systems reviewed & no additional complaints except as documented Subjective/ROS - Narrative: Constitutional: Negative: chills, fatigue, fever, night sweats, weakness HEENT: Negative: Blurred vision, pain, epistaxis, rhinorrhea, sore throat Cardiovascular: Negative: Chest pain, edema, palpitations Respiratory: Negative: Cough, shortness of breath, hemoptysis Gastrointestinal: Negative: pain, bloating, constipation, diarrhea, nausea, vomiting Genitourinary: Negative: Frequency, dysuria, flank pain, hematuria Genitalia: Negative: Discharge, masses, hernia--prior hot flashes resolved, menses now monthly and normal duration/flow. Breasts: Negative: Pain, mass, discharge, dimpling Neurologic: Negative: Dizziness, headache, numbness, tingling Psychiatric: Negative: Anxiety, depression, sleep changes--prior mood swings with full dose Tamoxifen. Hematologic/lymphatic: Negative: Bleeding, bruising, enlarged lymph nodes Endocrine: Negative: Excessive sweating, flushing, intolerance to cold, intolerance to heat, weight gain/loss Allergic/immunology: Negative: Pruritus, rash PMFSH - History Attestation statement: The following information was validated with the patient. Source: Old Records Reviewed - Medical History Medical History: Medical History (Last Reviewed 04/30/21 @ 17:07 by Carmela Sewell MD) Restless leg syndrome - Surgical History Surgical History: Surgical History (Last Reviewed 04/30/21 @ 17:07 by Carmela Sewell MD) History of lumpectomy of left breast and sentinel node bx 07/28/2018 - Social History Smoking Status: Current some day smoker Tobacco Type: cigarettes Substance Use Type: Alcohol Substance Abuse Comment: social Social History Comments: works with a [employer] and [employer]. one son. Home Medications & Allergies Allergies morphine Allergy (Verified 04/29/21 15:19) Unknown Reaction band aid adhesive Allergy (Uncoded 04/29/21 15:19) Rash Home Medications ibuprofen 200 mg tablet 800 mg PO Q4-6H PRN 07/21/18 [History Confirmed 04/29/21] ropinirole 0.5 mg tablet 0.5 mg PO QHS PRN 07/21/18 [History Confirmed 04/29/21] tamoxifen 10 mg tablet 10 mg PO DAILY #30 tab 04/29/21 [Rx] Objective - Height/Weight Height/Weight: Height 5 ft 6.54 in Weight 61.235 kg - Vital Signs Vital Signs: 04/29/21 15:20 Temperature 97.9 F Pulse Rate [Left Brachial] 95 H Respiratory Rate 20 Blood Pressure [Right Arm] 139/86 02 Sat by Pulse Oximetry 95 - Pain Left Breast Pain Intensity: 0 - Distress Screening Distress Screen Results: RN Distress Screening Start: 08/11/18 12:59 Freq: Status: Active Protocol: Document 01/16/19 08:44 BG (Rec: 01/16/19 08:44 BG [email or web address]) Distress Screening Distress Score: 0 No worry/distress Distress Screening Total 0 Physical Exam Narrative: GENERAL APPEARANCE: In no acute distress. HEENT: No scleral icterus or cervical lymphadenopathy. LUNGS: Clear to auscultation bilaterally, no rales, rhonchi, or crackles. CARDIOVASCULAR: S1 and S2, regular rate and rhythm, no murmurs, gallops, rubs. ABDOMEN: Soft, nontender, bowel sounds normal. No hepatosplenomegaly. No mass palpated. EXTREMITIES: No edema or calf tenderness. NEUROLOGIC: Grossly intact. Normal gait and nonfocal exam. Breast exam: Well healed left lumpectomy scar. No masses or skin changes, no nipple discharge or deviation. Right breast unremarkable. - ECOG Performance Status ECOG Score: 0 Results - Labs Labs: Diagram of Most Recent CBC and CMP 06/21/18 10:53 06/21/18 10:53 - Impressions Overdue for annual mammogram, ordered prior to one month followup. Date of Service: 08/31/19 MR/MR breast BI wo/w con CAD: N64.59 Copies to: Tomi Salas, ~ BILATERAL BREAST MRI WITHOUT AND WITH INTRAVENOUS CONTRAST CLINICAL HISTORY: History of left lumpectomy a year ago with continued breast pain and swelling. COMPARISON: Mammogram 05/01/2019 TECHNIQUE: MRI examination of the breasts was performed with patient in prone position utilizing a 16-channel dedicated breast coil on a 1.5 Blanca magnet. Axial unenhanced T2 VISTA, T1 and T2 fat-saturated images were performed. E-THRIVE T1 axial fat-saturated dynamic imaging was subsequently performed with a precontrast sequence followed by 6 dynamic postcontrast sequences after administration of 6 mL of intravenous Gadavist. All imaged data was reviewed using the [employer] system. The postcontrast images were subtracted and CAD mapping of the enhancement kinetics was performed. Kinetic curves were generated. 2D and 3D MIP images were also reviewed. Over read was provided by Dr. Rosalba Hurd. FINDINGS: The breast parenchyma is heterogeneously dense. There is mild background parenchymal enhancement. There is postoperative scarring at the upper outer left breast where there is dimpling of the skin and underlying distortion. There is skin thickening on the left as well as diffuse subcutaneous edema, greatest toward the chest wall and including the pectoralis muscle that probably relates to radiation therapy. There are some scattered benign-appearing T2 high signal nodular areas. There are no sites of suspiciousmorphology or pathologic enhancement kinetics. No abnormal axillary lymph nodesare noted. MR/MR breast BI wo/w con CAD IMPRESSION: NO SUSPICIOUS MRI ABNORMALITIES INVOLVING THE RIGHT BREAST. POSTSURGICAL AND POSTRADIATION CHANGES INVOLVING THE LEFT BREAST. FURTHER MANAGEMENT FOR PATIENT'S SYMPTOMS SHOULD BE BASED ON CLINICAL IMPRESSION. ANNUAL SCREENING MAMMOGRAPHY IS RECOMMENDED. FINAL ASSESSMENT/ BI-RAD: Benign. Impression dictated by: May Sneed M.D.09/03/2019 9:26 AM Assessment and Plan - TNM Staging Staging: Left breast moderate differentiated (Grade 2, [place] score 7) pT2 (22mm), pN0, M0--ER +90%, NY+ 95%, Her2 equivocal IHC/negative FISH. Oncotype Dx recurrence score 9 (3% risk distant recurrence) (1) Carcinoma of upper-outer quadrant of left breast in female, estrogen receptor positive Ms. Mejia presented to the outpatient clinic for a 3-month follow-up status postleft breast lumpectomy and sentinel biopsy 07/28/2018. -Low Oncotype DX, on adjuvant tamoxifen, no symptoms to suggest recurrence or DVT/PE or endometrial cancer, exam benign. She was concerned about low sex drive, mood swings and hot flashes. -Dr. Vivek Wells had a lengthy discussion re: alternatives and expectation and ways to cope with this. She agreed to continue Tamoxifen at last visit 04/2020 and discussed with her boyfriend re: decision moving forward. She saw Dr. Juarez one year ago--breast exams were benign. 04/2021: Overdue for mammogram and no f/u exams with Dr. Salas this year. She stopped Tamoxifen 08/2020 on her own due to side effects noted above. She agrees to resume lower dose Tamoxifen 10mg daily and f/u one month to assess tolerance and compliance with therapy. Consider adding Effexor if vasomotor symptoms and mood swings. She will have mammogram that was ordered today and agrees to arrange f/u with Dr. Salas. -Moderate complexity visit over 35 minutes for counseling of options. (2) Noncompliance with diagnostic testing (3) Noncompliance with medication regimen (4) Encounter for monitoring tamoxifen therapy - Chemo Plan Chemo Plan (Dose, Rate, Freq): Adjuvant endocrine with Tamoxifen, 20mg, PO, daily, 10/12/18-stopped on her own 08/2020 for poor tolerance. --04/2021: we discussed resuming Tamoxifen 10mg po daily (declined AI with GnRH agonist)--assess tolerance 05/2021. Plan at least 5 years total therapy. Goal of Treatment: Curative - Time with Patient Time Spent with Patient (Follow Up Visit): 35 minutes - moderate complexity visit, discuss Tamoxifen resuming at lower dose, mammography and f/u with surgery Coordination of Care & Counseling Time: Greater than 50% of time spent with patient was for coordination of care (as documented) and [id number] counseling of patient and/or family. Dictated By: Carmela Sewell MD DD/ 1525 Signed By: <Electronically signed by MD Carmela Sewell> 04/30/21 1722 [facility] Work Phone: [phone]) 661-965311-16-2021 Progress note Author Margarita Mora [facility] April 28, 2021 4:42pm Note Date/Time April 28, 2021 2:51pm [facility] [place] [address] Rad Onc Follow Up Note - OP Signed Patient: Eneida Mejia MR#: [id number] : 1975 Acct:[id number] Age/Sex: 45 / F Type: REG RCR Copies to: MD Tomi Sarmiento DO Jennifer Hacker APRN, [employer]~ Subjective - Service Date/Time Date: 04/28/21 Time: 14:51 - Diagnosis 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 Observation and annual mammograms are recommended and and her next mammogram in April 2018 showed enlarging mass in the same area. Patient had lumpectomy and sentinel node biopsy on 07/28/2018. Final pathology report confirmed a 2.2 cm invasive ductal carcinoma with associated ductal carcinoma insitu and the margins of resection were negative. 2 lymph nodes in the axilla was also negative and her pathological staging was pT2 pN0 M0. The ER/NY receptors were positive and the HER-2/marcin was negative. Patient did have resection of a hematoma from the lumpectomy site on 08/11/2018 and subsequently, she had healed well. Patient also had a Oncotype testing and her Oncotype scorewas 9 (low risk). Dr. Doyle had seen the patient and no plans for any systemic chemotherapy and she received primary radiation therapy treatment to her left breast with completion of her treatments in September 2018. Post-radiation, she was started on tamoxifen but she only took it for few months and stopped taking it on her own because of mood swings and low libido which are expected. Patient has started to menstruate again. She had her last mammograms in late part of 2018 and is part of having outer out there by Dr. Salas, she did not schedule her follow-up mammograms. She returned today for her scheduled radiation oncology follow-up and her only complaint is slight fullness of the left breast with occasional discomfort. I reassured her and told her that thesewere expected post-surgical and post- radiation side effects and should resolve over the next few months. She has no complaints of any breast lumps, arm swelling, cough, sore throat, difficulty in swallowing, headaches, nausea, back pain, abdominal discomfort, urinary or bowel problems, intermenstrual bleeding, leg swelling, motor or sensory changes. She has been active and her appetite isgood and weight remain stable. No complaints of fever, chills or night sweats. She has an appointment to see Dr. Sewell tomorrow in follow-up and I advised her to discuss with her regarding her hormone treatments. She has also been scheduled for her follow-up mammogram on May 20, 2021. I've closely reviewed the patient's oncologic, medical, surgical, social, and family history. Changes noted above. I also reviewed the patient's medicationsvia reconciliation, as per the nursing record. - Review of Systems ROS: As per HPI. Objective Height 5 ft 6.54 in Weight 61.7 kg Temp 98.8 F 04/28/21 14:23 Pulse 107 H 04/28/21 14:23 Resp 22 04/28/21 14:23 BP 160/91 H 04/28/21 14:23 Pulse Ox 98 04/28/21 14:23 Pain: 0/10 Distress Screen Results: RN Distress Screening Start: 08/11/18 12:59 Freq: Status: Active Protocol: Document 01/16/19 08:44 BG (Rec: 01/16/19 08:44 BG [email or web address]) Distress Screening Distress Score: 0 No worry/distress Distress Screening Total 0 Karnofsky Performance Scale: 90%: Can perform normal activity, minor signs of disease Physical Exam: Physical examination today shows an alert, oriented pleasant female who is in no acute distress. HEENT examination did not reveal any cranial neuropathy. No palpable cervical or supraclavicular lymphadenopathy. Local exam of left breast shows mild swelling as compared to the right and the cosmetic result is moderately good. The surgical scar in the upper outer quadrant is well-healed and there is still some residual underlying post-operative thickening and induration as expected. No discrete palpable mass in the left breast or axilla. Right breast and axilla are are also without any masses. She has no lymphedema of the left upper extremity. Her lungs are clearto auscultation. Cardiac examination is unremarkable. No spinal or paraspinal tenderness. Abdomen is soft and nontender and there is no palpable mass or organomegaly. Pelvic and rectal examination were not done and patient states that she had a recent Pap smear which was reported negative. She has no leg edema. She remains neurologically stable including her motor, sensory and cerebellar functions. 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 On today's examination, has no clinical evidence of residualor recurrent disease in the breast. Patient stopped taking her tamoxifen and will discuss with Dr. Sewell tomorrow regarding her hormone treatments. She is also scheduled for her follow-up mammograms of May 20, [address] Salas as well. I shall plan to see her back in 1 year for her next scheduled radiation oncology follow-up. Total Time Spent with Patient: Less than 30 minutes I spent 20 minutes [id number] time with this patient and more than 50% of timeallotted to patient education, answering questions, and coordinating care. N.B: Voice-recognition software was used in the creation of this note. Efforts were made to detect and correct typographical and/or grammatical errors;please excuse them should you find any. Dictated By: Margarita Mora MD DD/ 1450 Signed By: <Electronically signed by Margarita Mora MD> 04/28/21 1640 [facility] Work Phone: 1(802) 511-996011-12-2020 Progress note Author Margarita Mora [facility] April 24, 2020 10:44am Note Date/Time April 24, 2020 10:38am [facility] [place] [address] Rad Onc Follow Up Note - OP Signed Patient: Eneida Mejia MR#: [id number] : 1975 Acct:[id number] Age/Sex: 44 / F Type: REG RCR Copies to: MD Tomi Herrera, DO Rosalba Adorno APRN, [employer]~ Subjective - Service Date/Time Date: 04/24/20 Time: 10:00 - Diagnosis Invasive ductal carcinoma of the upper outer quadrant of the left breast, grade 2, stage pT2 pN0 M0, ER positive, NY positive and HER-2/marcin negative - Chief Complaint I still have slight swelling and discomfort of the left breast - History of Present Illness 43-year-old premenopausal female, 2 para 2 AB 0 with 20 pack is history of smoking and moderate alcohol use and visits 4-5 beers a day had noticed a left breast mass in February 2017 and she had her first mammogram at that time. Observation and annual mammograms are recommended and and her next mammogram in April 2018 showed enlarging mass in the same area. Patient had lumpectomy and sentinel node biopsy on 07/28/2018. Final pathology report confirmed a 2.2 cm invasive ductal carcinoma with associated ductal carcinoma insitu and the margins of resection were negative. 2 lymph nodes in the axilla was also negative and her pathological staging was pT2 pN0 M0. The ER/NY receptors were positive and the HER-2/marcin was negative. Patient did have resection of a hematoma from the lumpectomy site on 08/11/2018 and subsequently, she had healed well. Patient also had a Oncotype testing and her Oncotype score was9 (low risk). Dr. Doyle had seen the patient and no plans for any systemic chemotherapy and patient has been started on tamoxifen post completion of her radiation therapy treatments. She returned today for her scheduled radiation oncology follow-up without any complaints first of skin irritation over the leftbreast, lumps, pain, arm swelling, cough, sore throat, difficulty swallowing, headaches, nausea, back pain, abdominal discomfort, urinary or bowel problems, intermenstrual bleeding, leg swelling, motor or sensory changes. She has been active and her appetite is good and weight remains stable. No complaints of fever, chills or night sweats. She has some tamoxifen related side effects and she addressed them with Dr. Doyle today. Dr. Doyle left it up to her to continue the tamoxifen and patient stated that she will continue it for at least additional 1year. I've closely reviewed the patient's oncologic, medical, surgical, social, and family history. Changes noted above. I also reviewed the patient's medicationsvia reconciliation, as per the nursing record. - Review of Systems ROS: As per HPI. Objective Height 5 ft 6.54 in Weight 62.4 kg Temp 98.8 F 04/24/20 09:13 Pulse 98 H 04/24/20 09:13 Resp 20 04/24/20 09:13 BP 129/62 04/24/20 09:13 Pulse Ox 98 04/24/20 09:13 Pain: 0/10 Emotional Needs Assessment: Emotional Needs Identified? No Distress Screening Total 0 Karnofsky Performance Scale: 90%: Can perform normal activity, minor signs of disease Physical Exam: Physical examination today shows an alert, oriented pleasant female who is in no acute distress. HEENT examination did not reveal any cranial neuropathy. No palpable cervical or supraclavicular lymphadenopathy. Local exam of left breast shows mild swelling as compared to the right and the cosmetic result is moderately good. The surgical scar in the upper outer quadrant is well-healed and there is still some residual underlying post-operative thickening and induration as expected. No discrete palpable mass in the left breast or axilla. Right breast and axilla are are also without any masses. She has no lymphedema of the left upper extremity. Her lungs are clearto auscultation. Cardiac examination is unremarkable. No spinal or paraspinal tenderness. Abdomen is soft and nontender and there is no palpable mass or organomegaly. Pelvic and rectal examination were not done and patient states that she had a recent Pap smear which was reported negative. She has no leg edema. She remains neurologically stable including her motor, sensory and cerebellar functions. 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 She is currently on tamoxifen as prescribed by Dr. Doyle and she also continues to follow- up regularly with Dr. Salas. She is scheduled to have her repeat mammograms later this week and she was seen by Dr. Doyle today. Lorena continue on tamoxifen orally as prescribed by Dr. Doyle (for now) and I shall plan to see her back for her next scheduled radiation oncology follow-up in 1 year. Total Time Spent with Patient: Less than 30 minutes More than 50% of time allotted to patient education, answering questions, and coordinating care. N.B: Voice-recognition software was used in the creation of this note. Efforts were made to detect and correct typographical and/or grammatical errors;please excuse them should you find any. Dictated By: Margarita Mora MD DD/ [id number] Signed By: <Electronically signed by Margarita Mora MD> 04/24/20 10[address] [facility] Work Phone: [phone] Progress note Author Vivek Wells [facility] April 24, 2020 10:27am Note Date/Time April 24, 2020 9:44am [facility] [place] [address] Hem/Onc Follow Up Note - OP Signed Patient: Eneida Mejia MR#: [id number] : 1975 Acct:[id number] Age/Sex: 44 / F Type: REG RCR Copies to: DO Rosalba Rodriguez APRN, [employer]~ Subjective Date/Time of Service: Date of Service: 04/24/2020 Time of Service: 09:35 Chief Complaint: 1 year follow up appt HPI: Ms. Mejia presented to the outpatient clinic for 1 year follow-up status post left breast lumpectomy . She has been taking Tamoxifen. She reports hersex life is not as good as before, primarily due to decreased sex drive. She reports no issues with any tumor, shortness of breath, chest pain, leg pain/edema, or abdominal vaginal bleeding. - Summary of Therapies Summary of Therapies: Summary of Therapies: 1. Left breast lumpectomy and sentinel biopsy on 07/28/[address] Salas. 2. Adjuvant radiation: 09/11/18- 10/06/18, 4256 cGy in 16 fractions, followed by an additional boost of 1000 cGy to the area of the tumor bed, total 5256 cGy in 20 fractions over 25 elapsed days. 3. Adjuvant endocrine with Tamoxifen, 20mg, PO, daily, 10/12/18- ROS Details: All systems reviewed & no additional complaints except as documented Subjective/ROS - Narrative: Subjective/ROS-narrative: Constitutional: Negative: chills, fatigue, fever, night sweats, weakness HEENT: Negative: Blurred vision, pain, epistaxis, rhinorrhea, sore throat Cardiovascular: Negative: Chest pain, edema, palpitations Respiratory: Negative: Cough, shortness of breath, hemoptysis Gastrointestinal: Negative: pain, bloating, constipation, diarrhea, nausea, vomiting Genitourinary: Negative: Frequency, dysuria, flank pain, hematuria Genitalia: Negative: Discharge, masses, hernia Breasts: Negative: Pain, mass, discharge, dimpling Neurologic: Negative: Dizziness, headache, numbness, tingling Psychiatric: Negative: Anxiety, depression, sleep changes Hematologic/lymphatic: Negative: Bleeding, bruising, enlarged lymph nodes Endocrine: Negative: Excessive sweating, flushing, intolerance to cold, intolerance to heat, weight gain/loss Allergic/immunology: Negative: Pruritus, rash PMFSH - Medical History Medical History: Medical History (Last Updated 01/16/19 @ 09:02 by Jacy Pollack APRN) Restless leg syndrome - Surgical History Surgical History: Surgical History (Last Updated 01/15/19 @ 09:31 by Jacy Pollack APRN) History of lumpectomy of left breast and sentinel node bx 07/28/2018 - Social History Smoking Status: Current some day smoker Tobacco Type: cigarettes Substance Use Type: Alcohol Substance Abuse Comment: social Social History Comments: works with a [employer] and [employer]. one son. Home Medications & Allergies Allergies morphine Allergy (Verified 08/11/18 06:06) Unknown Reaction band aid adhesive Allergy (Uncoded 08/11/18 06:06) Rash Home Medications ibuprofen 800 mg PO Q4-6H PRN 07/21/18 [History Confirmed 04/24/20] ropinirole 0.5 mg PO QHS PRN 07/21/18 [History Confirmed 04/24/20] calcium carbonate [Calcium 600] 1 tab PO DAILY 04/25/19 [History Confirmed 04/24/20] cholecalciferol (vitamin D3) [Vitamin D3] 1,000 unit PO DAILY 04/25/19 [History Confirmed 04/24/20] tamoxifen 20 mg PO DAILY 90 Days #90 tab 10/29/19 [Rx Confirmed 04/24/20] Objective - Height/Weight Height/Weight: Height 5 ft 6.54 in Weight 62.4 kg - Vital Signs Vital Signs: 04/24/20 09:13 Temperature 98.8 F Pulse Rate [Left Brachial] 98 H Respiratory Rate 20 Blood Pressure [Right Arm] 129/62 02 Sat by Pulse Oximetry 98 - Pain Left Breast Pain Intensity: 0 - Emotional Needs Assessment Emotional Needs Assessment: Emotional Needs Identified? No Distress Screening Total 0 - ECOG Performance Status ECOG Score: 0 Physical Exam Narrative: GENERAL APPEARANCE: In no acute distress. HEENT: No jaundice or lymphadenopathy. LUNGS: Clear to auscultation bilaterally, no rales, rhonchi, or crackles. CARDIOVASCULAR: S1 and S2, regular rate and rhythm, no murmurs, gallops, rubs. ABDOMEN: Soft, nontender, bowel sounds normal. No hepatosplenomegaly. No mass palpated. EXTREMITIES: No edema or calf tenderness. NEUROLOGIC: Grossly intact. Breast exam: Deferred. Results - Labs Labs: Diagram of Most Recent CBC and CMP 06/21/18 10:53 06/21/18 10:53 Assessment and Plan (1) Carcinoma of upper-outer quadrant of left breast in female, estrogen receptor positive Ms. Mejia presented to the outpatient clinic for a 3-month follow-up status postleft breast lumpectomy and sentinel biopsy 07/28/2018. -Low Oncotype DX, on adjuvant tamoxifen, no symptoms to suggest recurrence or DVT/PE or endometrial cancer, exam benign. She is concerned about low sex drive,we had a lengthy discussion re: alternatives and expectation and ways to cope with this. She would continue Tamoxifen for now and discuss with her boyfriend re: decision moving forward. She saw Dr. Salas 3 days ago, breast exams were benign. She will have mammogram next week and review the results with Dr. Salas. -I will see her back in a year with history and physical, sooner if questions orconcerns arise. (2) Decreased sex drive Discussed as above. She would like to continue Tamoxifen for now. - Time with Patient Total Time Spent with Patient: 30 min Coordination of Care & Counseling Time: Greater than 50% of time spent with patient was for coordination of care (as documented) and [id number] counseling of patient and/or family. Dictated By: Vivek Wells MD DD/ [id number] Signed By: <Electronically signed by Vivek Wells MD> 04/24/[address] [place] [address] Work Phone: [phone] Progress note Author Vivek Wells [facility] April 25, 2019 10:08am Note Date/Time April 25, 2019 9:50am [facility] [place] [address] Hem/Onc Follow Up Note - OP Signed Patient: Eneida Mejia MR#: [id number] : 1975 Acct:[id number] Age/Sex: 43 / F Type: REG RCR Copies to: DO Rosalba Rodriguez APRN, [employer]SEMBLER~ Subjective Date/Time of Service: Date of Service: 04/25/2019 Time of Service: 09:49 Chief Complaint: Follow up visit for breast cancer. HPI: Ms. Mejia presented to the outpatient clinic for 3-month follow-up status post left breast lumpectomy . She has been taking Tamoxifen with complaintsof some joint aches, intermittent. She reports no issues with any new lumps, bumps, shortness of breath, edema in lower extremities or mood changes. - Summary of Therapies Summary of Therapies: Summary of Therapies: 1. Left breast lumpectomy and sentinel biopsy on 07/28/[address] Salas. 2. Adjuvant radiation: 09/11/18- 10/06/18, 4256 cGy in 16 fractions, followed by an additional boost of 1000 cGy to the area of the tumor bed, total 5256 cGy in 20 fractions over 25 elapsed days. 3. Adjuvant endocrine with Tamoxifen, 20mg, PO, daily, 10/12/18- ROS Details: All systems reviewed & no additional complaints except as documented Subjective/ROS - Narrative: Subjective/ROS-narrative: Constitutional: Negative: chills, fatigue, fever, night sweats, weakness HEENT: Negative: Blurred vision, pain, epistaxis, rhinorrhea, sore throat Cardiovascular: Negative: Chest pain, edema, palpitations Respiratory: Negative: Cough, shortness of breath, hemoptysis Gastrointestinal: Negative: pain, bloating, constipation, diarrhea, nausea, vomiting Genitourinary: Negative: Frequency, dysuria, flank pain, hematuria Genitalia: Negative: Discharge, masses, hernia Breasts: Negative: Pain, mass, discharge, dimpling Neurologic: Negative: Dizziness, headache, numbness, tingling Psychiatric: Negative: Anxiety, depression, sleep changes Hematologic/lymphatic: Negative: Bleeding, bruising, enlarged lymph nodes Endocrine: Negative: Excessive sweating, flushing, intolerance to cold, intolerance to heat, weight gain/loss Allergic/immunology: Negative: Pruritus, rash PMFSH - Medical History Medical History: Medical History (Last Updated 01/16/19 @ 09:02 by Jacy Pollack APRN) Restless leg syndrome - Surgical History Surgical History: Surgical History (Last Updated 01/15/19 @ 09:31 by Jacy Pollack APRN) History of lumpectomy of left breast and sentinel node bx 07/28/2018 - Social History Smoking Status: Current some day smoker Tobacco Type: cigarettes Substance Use Type: Alcohol Substance Abuse Comment: social Social History Comments: works with a [employer] and [employer]. one son. Home Medications & Allergies Allergies morphine Allergy (Verified 08/11/18 06:06) Unknown Reaction band aid adhesive Allergy (Uncoded 08/11/18 06:06) Rash Home Medications ibuprofen 800 mg PO Q4-6H PRN 07/21/18 [History Confirmed 04/25/19] ropinirole 0.5 mg PO QHS PRN 07/21/18 [History Confirmed 04/25/19] tamoxifen 20 mg PO DAILY 90 Days #90 tab 10/12/18 [Rx Confirmed 04/25/19] calcium carbonate [Calcium 600] 1 tab PO DAILY 04/25/19 [History Confirmed 04/25/19] cholecalciferol (vitamin D3) [Vitamin D3] 1,000 unit PO DAILY 04/25/19 [History Confirmed 04/25/19] Objective - Height/Weight Height/Weight: Height 5 ft 6.54 in Weight 63.1 kg - Vital Signs Vital Signs: 04/25/19 09:05 Temperature 98.9 F Pulse Rate [Left Brachial] 96 H Respiratory Rate 20 Blood Pressure [Right Arm] 123/69 02 Sat by Pulse Oximetry 100 - Pain Left Breast Pain Intensity: 0 - Emotional Needs Assessment Emotional Needs Assessment: Emotional Needs Identified? No - ECOG Performance Status ECOG Score: 0 Physical Exam Narrative: GENERAL APPEARANCE: In no acute distress. HEENT: Moist and clear, no oral thrush. LUNGS: Clear to auscultation bilaterally, no rales, rhonchi, or crackles. CARDIOVASCULAR: S1 and S2, regular rate and rhythm, no murmurs, gallops, rubs. ABDOMEN: Soft, nontender, bowel sounds normal. No hepatosplenomegaly. No mass palpated. EXTREMITIES: No edema or calf tenderness. NEUROLOGIC: Grossly intact. Breast exam: Left breast lumpectomy, mild chest wall lymphedema, no mass, nippledischarge, or axillary lymphadenopathy bilaterally Results - Labs Labs: Diagram of Most Recent CBC and CMP 06/21/18 10:53 06/21/18 10:53 Assessment and Plan (1) Carcinoma of upper-outer quadrant of left breast in female, estrogen receptor positive Ms. Mejia presented to the outpatient clinic for a 3-month follow-up status postleft breast lumpectomy and sentinel biopsy 07/28/2018. -Low Oncotype DX, on adjuvant tamoxifen, tolerating well, joint aches, would continue. -I specific counseled her about the risks of DVT/PE and endometrial cancer, instructed her go to the ER she develops lower extremity edema pain, or chest pain/short of breath for evaluation of blood clot; she should call gynecology ifshe develop irregular menstrual/spotting. She verbalized good understanding. -She will see Dr. Salas later this month, I instructed her to call Dr. Salas office to schedule mammograms with him an appointment after the mammogram. -I will see her back in a year with history and physical. (2) Tobacco dependence Continues to smoke but attempting to reduce amount of cigarettes. - Time with Patient Coordination of Care & Counseling Time: Greater than 50% of time spent with patient was for coordination of care (as documented) and [id number] counseling of patient and/or family. Dictated By: Vivek Wells MD DD/ [id number] Signed By: <Electronically signed by Vivek Wells MD> 04/25/[address] 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 Observation and annual mammograms are recommended and and her next mammogram in April 2018 showed enlarging mass in the same area. Patient had lumpectomy and sentinel node biopsy on 07/28/2018. Final pathology report confirmed a 2.2 cm invasive ductal carcinoma with associated ductal carcinoma insitu and the margins of resection were negative. 2 lymph nodes in the axilla was also negative and her pathological staging was pT2 pN0 M0. The ER/NY receptors were positive and the HER-2/marcin was negative. Patient did have resection of a hematoma from the lumpectomy site on 08/11/2018 and subsequently, she had healed well. Patient also had a Oncotype testing and her Oncotype scorewas 9 (low risk). Dr. Doyle had seen the patient and no plans for any systemic chemotherapy and patient has been started on tamoxifen post completion of her radiation therapy treatments. She returned today for her scheduled 6 monthly follow-up without any complaints first of skin irritation over the left breast, lumps, pain, arm swelling, cough, sore throat, difficulty swallowing, headaches,nausea, back pain, abdominal discomfort, urinary or bowel problems, intermenstrual bleeding, leg swelling, motor or sensory changes. She has been active and her appetite is good and weight remains stable. No complaints of fever, chills or night sweats. She has no significant complaints of any side effects related to her tamoxifen which is been prescribed by Dr. Doyle. 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 I've closely reviewed the patient's oncologic, medical, surgical, social, and family history. Changes noted above. I also reviewed the patient's medicationsvia reconciliation, as per the nursing record. - Review of Systems ROS: As per HPI. Objective Height 5 ft 6.54 in Weight 63.1 kg Temp 98.9 F 04/25/19 09:05 Pulse 96 H 04/25/19 09:05 Resp 20 04/25/19 09:05 BP 123/69 04/25/19 09:05 Pulse Ox 100 04/25/19 09:05 Pain: 0/10 Emotional Needs Assessment: Emotional Needs Identified? No Karnofsky Performance Scale: 100%: Normal, no complaints Physical Exam: Physical examination today shows an alert, oriented pleasant female who is in no acute distress. HEENT examination did not reveal any cranial neuropathy. No palpable cervical or supraclavicular lymphadenopathy. Local exam of left breast shows mild swelling as compared to the right and the cusp result is moderately good. The surgical scar in the upper outer quadrant is well-healed and there is still some residual underlying post-operative thickening and induration as expected. No discrete palpable mass in the left breast or axilla. Right breast and axilla are are also without any masses. Shehas no lymphedema of the left upper extremity. Her lungs are clear to auscultation. Cardiac examination is unremarkable. No spinal or paraspinal tenderness. Abdomen is soft and nontender and there is no palpable mass or organomegaly. Pelvic and rectal examination were not done and patient states that she had a recent Pap smear which was reported negative. She has no leg edema. She remains neurologically stable including her motor, sensory and cerebellar functions. Results CBC & Chem 7: 06/21/18 10:53 06/21/18 10:53 Impression: nvasive ductal carcinoma of the upper outer quadrant of the left breast, grade 2, stage pT2 pN0 M0, ER positive, NY positive and HER-2/marcin negative Assessment & Plan (1) Carcinoma of upper-outer quadrant of left breast in female, estrogen receptor positive Plan: Patient with clinically localized left breast carcinoma the upper outer quadrant, stage pT2 pN0 M0, stage Ib is ER/ [place] receptor positive and HER-2/marcin negative status post local radiation to the left breast several months ago has no clinical evidence of disease. She is currently on tamoxifen as prescribed byDr. Doyle. She continues to follow-up with Dr. Salas at every 3 month intervals and will be seeing her in May 2019 and he will order her post-operative baseline mammograms at that time (she is actually due for her annual bilateral mammograms in May). She is also seeing Dr. Doyle today and he is following her her at every 6 month intervals. I shall plan to see her back in 1 year for her next scheduled radiation oncology follow- up. Total Time Spent with Patient: Less than 30 minutes More than 50% of time allotted to patient education, answering questions, and coordinating care. N.B: Voice-recognition software was used in the creation of this note. Efforts were made to detect and correct typographical and/or grammatical errors;please excuse them should you find any. Dictated By: Margarita Mora MD DD/ [id number] Signed By: <Electronically signed by Margarita Mora MD> 04/25/19 [address] [facility] Work Phone: [phone]) [phone] Progress note Author Jacy Jaki [facility] January 16, 2019 10:02am Note Date/Time January 16, 2019 8:5 8am [facility] [place] [address] Hem/Onc Follow Up Note - OP Signed Patient: Eneida Mejia MR#: [id number] : 1975 Acct:[id number] Age/Sex: 43 / F Type: REG RCR Copies to: Tomi Salas, DO Rosalba Adorno APRN, [employer]ER~ Subjective Date/Time of Service: Date of Service: 01/16/2019 Time of Service: 08:40 Chief Complaint: 3 month follow up appt no new concerns - Diagnosis DIAGNOSIS: DIAGNOSIS: 1. Stage IB (pT2-2.2cm, N0-0/2 nodes, Mx), ER 90%, NY 95%, Her-2 negative, grade2 ([place] score 7), diagnosed ultrasound-guided biopsy on 05/18/18. -Presentation was a self-palpable breast mass in the setting of history of breast cysts, found to have a developing 2.4 cm area concerning malignancy on the diagnostic mammogram that was performed 05/15/18. -Final pathology from left breast lumpectomy and sentinel biopsy that was performed on 07/28/18: 2.2 cm invasive ductal carcinoma carcinoma with associatedDCIS, 2 out of 2 resected sentinel nodes were negative for metastatic carcinoma,margins were negative both for invasive carcinoma and DCIS. -Oncotype DX score 9, risk of distant metastasis on endocrine therapy <3% at 9 years, benefit of chemotherapy<1%; [employer] gene panel: NEGATIVE. The panel included the following genes:~BRIAN, BARD1, BRCA1, BRCA2, BRIP1, CDH1, CHEK2, EPCAM (deletion/duplication only), DICER1, MRE11A, MLH1, MSH2, MSH6, MYH, NBN, NF1, PALB2, PMS2, PTEN, RAD50, RAD51C, RAD51D, SMARCA4, STK11, and TP53 (sequencing and deletion/duplication). All of the geneswere analyzed using next generation sequencing technology, as well as deletion and duplication analysis. HPI: Ms. Mejia presented to the outpatient clinic for 3-month follow-up status post left breast lumpectomy . Today, she reports no issues with any new lumps, bumps, shortness of breath, edema in lower extremities or mood changes. - Summary of Therapies Summary of Therapies: Summary of Therapies: 1. Left breast lumpectomy and sentinel biopsy on 07/28/[address] Salas. 2. Adjuvant radiation: 09/11/18- 10/06/18, 4256 cGy in 16 fractions, followed by an additional boost of 1000 cGy to the area of the tumor bed, total 5256 cGy in 20 fractions over 25 elapsed days. 3. Adjuvant endocrine with Tamoxifen, 20mg, PO, daily, 10/12/18- ROS Details: All systems reviewed & no additional complaints except as documented Subjective/ROS - Narrative: Subjective/ROS-narrative: Constitutional: Negative: chills, fatigue, fever, night sweats, weakness HEENT: Negative: Blurred vision, pain, epistaxis, rhinorrhea, sore throat Cardiovascular: Negative: Chest pain, edema, palpitations Respiratory: Negative: Cough, shortness of breath, hemoptysis Gastrointestinal: Negative: pain, bloating, constipation, diarrhea, nausea, vomiting Genitourinary: Negative: Frequency, dysuria, flank pain, hematuria Genitalia: Negative: Discharge, masses, hernia Breasts: Negative: Pain, mass, discharge, dimpling Neurologic: Negative: Dizziness, headache, numbness, tingling Psychiatric: Negative: Anxiety, depression, sleep changes Hematologic/lymphatic: Negative: Bleeding, bruising, enlarged lymph nodes Endocrine: Negative: Excessive sweating, flushing, intolerance to cold, intolerance to heat, weight gain/loss Allergic/immunology: Negative: Pruritus, rash PMFSH - History Attestation statement: The following information was validated with the patient. Source: Old Records Reviewed - Medical History Medical History: Medical History (Last Updated 01/16/19 @ 09:02 by Jacy Pollack APRN) Restless leg syndrome - Surgical History Surgical History: Surgical History (Last Updated 01/15/19 @ 09:31 by Jacy Pollack APRN) History of lumpectomy of left breast and sentinel node bx 07/28/2018 - Social History Smoking Status: Current some day smoker Tobacco Type: cigarettes Substance Use Type: Alcohol Substance Abuse Comment: social Social History Comments: works with a [employer] and [employer]. one son. Home Medications & Allergies Allergies morphine Allergy (Verified 08/11/18 06:06) Unknown Reaction band aid adhesive Allergy (Uncoded 08/11/18 06:06) Rash Home Medications RX: ibuprofen 800 mg PO Q4-6H PRN 07/21/18 [History Confirmed 01/16/19] RX: ropinirole 0.5 mg PO QHS PRN 07/21/18 [History Confirmed 01/16/19] RX: tamoxifen 20 mg PO DAILY 90 Days #90 tab 10/12/18 [Rx Confirmed 01/16/19] Objective - Resuscitation Status Resuscitation Status: Full Code - Height/Weight Height/Weight: Height 5 ft 6.54 in Weight 62.8 kg - Vital Signs Vital Signs: 01/16/19 08:40 Temperature 98 F Pulse Rate [Left Brachial] 89 Respiratory Rate 20 Blood Pressure [Left Arm] 124/81 02 Sat by Pulse Oximetry 95 - Pain Left Breast Pain Intensity: 0 - Emotional Needs Assessment Emotional Needs Assessment: Emotional Needs Identified? No - ECOG Performance Status ECOG Score: 0 Physical Exam Narrative: Constitutional: No acute distress, average body habitus, alert and oriented x3, cooperative HEENT: Head: Normocephalic, atrophic Eyes: EOMI, PERRL, clear conjunctiva ENT: Moist mucous membrane, oropharynx clear, dentition, nares patent Neck: Supple, full range of motion, no lymphadenopathy, no tenderness Chest/breast/axilla exam: No tenderness, no lymphadenopathy, left breast incision well-healed, left axillary incision healed Respiratory: No accessory muscle use, anterior and posterior chest clear, no rales, no respiratory distress, no rhonchi, no wheeze Cardiovascular: RRR, no murmur, no rubs, no gallop, no peripheral edema Gastrointestinal: Normal active bowel sounds, no tenderness, no distention, no mass, no organomegaly, no bleeding : No hematuria Groin: No inguinal lymphadenopathy Back/spine/pelvis exam: Full range of motion, no tenderness Skin: Intact, dry, warm, normal turgor Neurologic: Alert, oriented x3, cranial nerves II-XII intact, reflexes, moving all extremities, vision grossly intact, hearing grossly intact, normal speech normal gait, no tremors Psychiatric: Normal affect, normal thought process, cooperative Results - Labs Labs: Diagram of Most Recent CBC and CMP 06/21/18 10:53 06/21/18 10:53 Assessment and Plan (1) Carcinoma of upper-outer quadrant of left breast in female, estrogen receptor positive Ms. Mejia presented to the outpatient clinic for a 3-month follow-up status postleft breast lumpectomy and sentinel biopsy 07/28/2018. - She reports no issues with the tamoxifen does not need refills at this time. -She states, mammogram being ordered by Dr. Salas (2) Tobacco dependence Continues to smoke but attempting to reduce amount of cigarettes. - Time with Patient Coordination of Care & Counseling Time: Greater than 50% of time spent with patient was for coordination of care (as documented) and [id number] counseling of patient and/or family. Dictated By: Jacy Pollack APRN DD/ [id number] Signed By: <Electronically signed by BILL Pollack> 01/16/19 1002 [facility] Work Phone: [phone]) 226-925005-29-2019 Progress note Author Margarita Mora [facility] November 08, 2018 10:52am Note Date/Time November 08, 2018 10:40 am [facility] [place] [id number] Rad Onc Follow Up Note - OP Signed Patient: Eneida Mejia MR#: [id number] : 1975 Acct:[id number] Age/Sex: 43 / F Type: REG RCR Copies to: MD Tomi Herrera, DO Rosalba Adorno BRINE PROCESS OPERATOR, CAMERA ASSEMBLER~ Subjective - Service Date/Time Date: 11/08/18 Time: 09:00 - Diagnosis Invasive ductal carcinoma of the upper outer quadrant of the left breast, grade 2, stage pT2 pN0 M0, ER positive, NY positive and HER-2/marcin negative - Chief Complaint I have started taking tamoxifen and I have no complaints today - History of Present Illness 43-year-old premenopausal female, 2 para 2 AB 0 with 20 pack is history of smoking and moderate alcohol use and visits 4-5 beers a day had noticed a left breast mass in February 2017 and she had her first mammogram at that time. Observation and annual mammograms are recommended and and her next mammogram in April 2018 showed enlarging mass in the same area. Patient had lumpectomy and sentinel node biopsy on 07/28/2018. Final pathology report confirmed a 2.2 cm invasive ductal carcinoma with associated ductal carcinoma insitu and the margins of resection were negative. 2 lymph nodes in the axilla was also negative and her pathological staging was pT2 pN0 M0. The ER/NY receptors were positive and the HER-2/marcin was negative. Patient did have resection of a hematoma from the lumpectomy site on 08/11/2018 and subsequently, she had healed well. Patient also had a Oncotype testing and her Oncotype score was9 (low risk). Dr. Doyle had seen the patient and no plans for any systemic chemotherapy and patient has been started on tamoxifen post completion of her radiation therapy treatments. Her 4-week course of radiation therapy treatment was completed about 5 weeks ago and she returned today for her first post radiation therapy follow-up without any complaints of skin irritation over the left breast in the recently radiated vizcarra, lumps, pain, arm swelling, cough, sore throat, difficulty swallowing, headaches, nausea, back pain, abdominal discomfort, urinary or bowel problems, intermenstrual bleeding, leg swelling, motor or sensory changes. She has been active and her appetite is good and weight remains stable. No complaints of fever, chills or night sweats. She hasno significant complaints of any side effects related to her tamoxifen intake which was prescribed by Dr. Doyle. I've closely reviewed the patient's oncologic, medical, surgical, social, and family history. Changes noted above. I also reviewed the patient's medicationsvia reconciliation, as per the nursing record. - Review of Systems ROS: As per HPI. Objective Height 5 ft 6.54 in Weight 65.2 kg Temp 98.7 F 11/08/18 08:32 Pulse 96 H 11/08/18 08:32 Resp 20 11/08/18 08:32 BP 141/81 H 11/08/18 08:32 Pulse Ox 95 11/08/18 08:32 Pain: 0/10 Emotional Needs Assessment: Emotional Needs Identified? No Karnofsky Performance Scale: 100%: Normal, no complaints Physical Exam: Physical examination today shows an alert, oriented pleasant female who is in no acute distress. HEENT examination did not reveal any cranial neuropathy. No palpable cervical or supraclavicular lymphadenopathy. Local exam of left breast shows mild to moderate skin discoloration in the upper outerquadrant (site of her lumpectomy and post-radiation) with underlying post-operative thickening and induration as expected. No discrete palpable mass in the left breast or axilla. Right breast and axilla are are also without any masses. She has no lymphedema of the left upper extremity. Her lungs are clearto auscultation. Cardiac examination is unremarkable. No spinal or paraspinal tenderness. Abdomen is soft and nontender and there is no palpable mass or organomegaly. Pelvic and rectal examination were not done and patient states that she had a Pap smear in April 2018 which was reported negative. She has no leg edema. She remains neurologically stable including her motor, sensory and cerebellar functions. 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 Doyle. Her Oncotype score is a low risk category and she will not receive any systemic chemotherapy. Patient saw Dr. Salas and Dr. Doyle within last month and she has been started on tamoxifen. Her post radiation baseline mammogram of the left breast will be repeated in 4 to [address] Salas and she already has a scheduled follow-up with Dr. Doyle and Dr. Salas in about 3 months. I should see her back for her next scheduled radiation oncology follow-up in 6 months. Total Time Spent with Patient: Less than 30 minutes - post RT F/U More than 50% of time allotted to patient education, answering questions, and coordinating care. N.B: Voice-recognition software was used in the creation of this note. Efforts were made to detect and correct typographical and/or grammatical errors;please excuse them should you find any. Dictated By: Margarita Mora MD DD/ [id number] Signed By: <Electronically signed by Margarita Mora MD> 11/08/18 1052 [facility] Work Phone: [phone]) [phone] Progress note Author Vivek Wells [facility] October 12, 2018 10:38am Note Date/Time October 12, 2018 10:10a m [facility] [place] [address] Hem/Onc Follow Up Note - OP Signed Patient: Eneida Mejia MR#: [id number] : 1975 Acct:[id number] Age/Sex: 43 / F Type: REG RCR Copies to: DO Rosalba Rodriguez BRINE PROCESS OPERATOR, CAMERA ASSEMBLER~ Subjective Date/Time of Service: Date of Service: 10/12/2018 Time of Service: 10:10 Chief Complaint: Survivorship appt discuss Tamoxifen - Diagnosis DIAGNOSIS: 1. Stage IB (pT2-2.2cm, N0-0/2 nodes, Mx), ER 90%, NY 95%, Her-2 negative, grade2 ([place] score 7), diagnosed ultrasound-guided biopsy on 05/18/18. -Presentation was a self-palpable breast mass in the setting of history of breast cysts, found to have a developing 2.4 cm area concerning malignancy on the diagnostic mammogram that was performed 05/15/18. -Final pathology from left breast lumpectomy and sentinel biopsy that was performed on 07/28/18: 2.2 cm invasive ductal carcinoma carcinoma with associatedDCIS, 2 out of 2 resected sentinel nodes were negative for metastatic carcinoma,margins were negative both for invasive carcinoma and DCIS. -Oncotype DX score 9, risk of distant metastasis on endocrine therapy <3% at 9 years, benefit of chemotherapy<1%; [employer] OvaNext gene panel: NEGATIVE. The panel included the following genes:~BRIAN, BARD1, BRCA1, BRCA2, BRIP1, CDH1, CHEK2, EPCAM (deletion/duplication only), DICER1, MRE11A, MLH1, MSH2, MSH6, MYH, NBN, NF1, PALB2, PMS2, PTEN, RAD50, RAD51C, RAD51D, SMARCA4, STK11, and TP53 (sequencing and deletion/duplication). All of the geneswere analyzed using next generation sequencing technology, as well as deletion and duplication analysis. HPI: Mrs. Mejia returns to discuss plan. She has completed radiation last [place], screamed burn is improving. She has mild fatigue she is back to work. Otherwise she has no specific complaints today. - Summary of Therapies Summary of Therapies: 1. Left breast lumpectomy and sentinel biopsy on 07/28/[address] Salas. 2. Adjuvant radiation: 09/11/18- 10/06/18, 4256 cGy in 16 fractions, followed by an additional boost of 1000 cGy to the area of the tumor bed, total 5256 cGy in 20 fractions over 25 elapsed days. 3. Adjuvant endocrine with Tamoxifen, 20mg, PO, daily, 10/12/18- Subjective/ROS - Narrative: CONSTITUTIONAL: No weight loss, fever, chills, mild fatigue from radiation. CARDIOVASCULAR: No chest pain, chest pressure or chest discomfort. No palpitations or edema. RESPIRATORY: No shortness of breath, cough or hemoptysis. GASTROINTESTINAL: No dysphagia, nausea, vomiting or diarrhea. No abdominal pain,melena, hematochezia. GENITOURINARY: No dysuria, urinary frequency or urgency. NEUROLOGICAL: No headache, dizziness, syncope, numbness or tingling in the extremities. MUSCULOSKELETAL: No back pain, or joint pain. PMFSH - Social History Smoking Status: Never smoker Substance Use Type: Alcohol Home Medications & Allergies Allergies Allergy/AdvReac Type Severity Reaction Status Date / Time morphine Allergy Unknown Verified 08/11/18 06:06 Reaction band aid adhesive Allergy Rash Uncoded 08/11/18 06:06 Home Medications Medication Instructions Recorded Confirmed Type ibuprofen 800 mg PO Q4-6H PRN 07/21/18 10/12/18 History ropinirole 0.5 mg PO QHS PRN 07/21/18 10/12/18 History hyaluronic Uq-zcnaykksy-cduh 1 applic TOPICAL TID 09/13/18 10/12/18 History [RadiaPlexRx] mometasone 1 applic TOPICAL BID 09/26/18 10/12/18 History tamoxifen 20 mg PO DAILY 90 Days #90 tab 10/12/18 Rx Objective - Height/Weight Height/Weight: Height 5 ft 6.54 in Weight 64.5 kg - Vital Signs Vital Signs: 10/12/18 09:36 Temperature 98 F Pulse Rate [Left Brachial] 90 Respiratory Rate 20 Blood Pressure [Left Arm] 117/72 02 Sat by Pulse Oximetry 95 - Pain Left Breast Pain Intensity: 3 - Emotional Needs Assessment Emotional Needs Assessment: Emotional Needs Identified? Yes Distress Screening Total 3 - ECOG Performance Status ECOG Score: 0 Physical Exam Narrative: GENERAL APPEARANCE: In no acute distress. HEENT: Moist and clear. EXTREMITIES: No edema. NEUROLOGIC: Grossly intact. Results - Labs Labs: Diagram of Most Recent CBC and CMP 06/21/18 10:53 06/21/18 10:53 - Impressions Any impression(s) listed above is documentation that was entered by the reading physician into a diagnostic report(s) for Eneida Mejia. I have reviewed the report(s) and am incorporating any findings in the treatment plan of this patient where applicable. Assessment and Plan (1) Carcinoma of upper-outer quadrant of left breast in female, estrogen receptor positive Stage IB (pT2-2.2cm, N0-0/2 nodes, Mx), ER 90%, NY 95%, Her-2 negative, grade 2 (Alejandro score 7). ECOG 0. Clinical no symptoms to suggest distant metastases, CBC and CMP normal. -Oncotype DX score 9, predicting low risk of distant metastasis endocrine therapy alone based on the 9-year follow-up results of the TAILORx study (N EnglJ Med 2018; 379:111-121), did not receive chemotherapy. -She is premenopausal, we discussed the rationale/risks/benefit/alternatives of Tamoxifen and anticipated side effects discussed in details, including metabolicsyndrome, gaining weight, mood changes, vaginal dryness, and rare side effects including increased risk of venous thrombosis by 1%, as well as a 0.2 to 0.4% ofendometrial cancer. We specifically discussed that should she develop lower extremity edema, pain, sudden onset of chest pain/short of breath, she should goto emergency room for evaluation of DVT or PE. In case she developed bloody vaginal discharge, she should call us or her glaze sprayer for evaluation. Mrs. Mejia verbalized good understanding and agreed to proceed. Tamoxifen [id number], with 3 refills, E-prescribed. -We further discuss survivorship in details as below: Survivorship: - Patient provided with written treatment summary/survivorship care plan, as well as, Facing Forward; Life after Cancer Therapy booklet. - Discussed side effects that are present now, that may go away; include: (fatigue/feeling tired, numbness at surgical scar site, problems with memory, skin changes at site of radiation, vaginal dryness) - Discussed may have a higher risk of: 1.) Arm swelling/lymphedema 2.) DVT/PE; 3) Endometrial cancer. - Patient was seen and evaluated for OT for lymphedema; not presently having any issues; baseline assessment performed. - Call the clinic with any of the followin. New swelling or reddening of an arm (particularly left arm) 2. new lumps, tender areas in the breast 3. new pain that doesn't go away 4. rash in the surgical/radiation area 5. side effects and/or symptoms that are not well controlled Follow up/Imagin.) Surgical Provider: Dr. Salas (as directed) 2.) Medical Oncology: Dr. Vivek Wells (every 6 months to a year for 5 years; after 5years annually) 3.) Radiation Oncology: Dr. Mora: 6 weeks post completion of radiotherapy; thenas directed 4.) PCP- at least annually; will order any non breast cancer related screenings/tests. Healthy Lifestyle Advice: - Limit alcohol intake (<1 drink/day female) - Moderate exercise (walking 150 minutes/week or 30 mins 5 x week). she will resume exercise. - Abstain from tobacco products (patient is thinking about quit) - Use sunscreen with at least SPF 15 - Bone health: -Advised VitD 1000 units daily. -Calcium supplement 600mg daily. long term (12 month patient goals): 1.) Exercise more 2.) Lose weight (2) Encounter for smoking cessation counseling Current active smoker, smoking cessation discussed. She will try High complexity encounter, discussing new medication, side effects, and survivorship - Time with Patient Total Time Spent with Patient: 45 min Coordination of Care & Counseling Time: Greater than 50% of time spent with patient was for coordination of care (as documented) and [id number]-tm-[id number] counseling of patient and/or family. Dictated By: Vivek Wells MD DD/ [id number] Signed By: <Electronically signed by Vivek Wells MD> 10/12/18 1038 [facility] Work Phone: [phone] Consult note Author Margarita Mora [facility] August 31, 2018 11:05am Note Date/Time August 31, 2018 9:2 7am [facility] [place] [id number] Rad Onc Consult Note - OP Signed Patient: Eneida Mejia MR#: [id number] : 1975 Acct:[id number] Age/Sex: 43 / F Type: REG RCR Copies to: MD Maritza Herrera Fredric DO Jennifer Hacker APRN, CAMERA ASSEMBLER~ HPI - Service Date/Time Date: 08/31/18 Time: 09:26 Diagnosis: Invasive ductal carcinoma of the upper outer quadrant of the left breast, grade 2, stage pT2 pN0 M0, ER positive, NY positive and HER-2/marcin negative Chief Complaint: Left breast cancer HPI: 43-year-old premenopausal female, 2 para 2 AB 0 with 20 pack is history of smoking and moderate alcohol use and visits 4-5 beers a day had noticed a left breast mass in February 2017 and she had her first mammogram at that time. Observation and annual mammograms are recommended and and her next mammogram in April 2018 showed enlarging mass in the same area. Patient had lumpectomy and sentinel node biopsy on 07/28/2018. Final pathology report confirmed a 2.2 cm invasive ductal carcinoma with associated ductal carcinoma insitu and the margins of resection were negative. 2 lymph nodes in the axilla was also negative and her pathological staging was pT2 pN0 M0. The ER/NY receptors were positive and the HER-2/marcin was negative. Patient did have resection of hematoma from the lumpectomy site on 08/11/2018 and she is healing well. Patient also had a Oncotype testing and her Oncotype score was 9 (low risk). Dr. Doyle has seen the patient and he does not plan any systemic chemotherapy and patient will be receiving post radiation hormonal treatments. I have been asked to see the patient for consideration of primary therapy to herleft breast. Patient has no complaints of any lumps, pain, lymphedema, cough, sore throat, difficulty swallowing, headaches, nausea, back pain, abdominal discomfort, urinary or bowel problems, intermenstrual bleeding, leg swelling, motor or sensory changes. She has been active, her appetite is good and weight is stable. No complaints of fever, chills or night sweats. [facility]/Meds Medical/Surgical History: Past history significant for right oophorectomy at age 31 and the pathology was benign. Family History: No significant family history of malignancy. Social History: Patient works for a [employer] and gives no history of exposure to any chemicals. She lives in [place], [place]. Allergies/Adverse Reactions: Allergies Allergy/AdvReac Type Severity Reaction Status Date / Time morphine Allergy Unknown Verified 08/11/18 06:06 Reaction band aid adhesive Allergy Rash Uncoded 08/11/18 06:06 Home Medications: Home Medications Medication Instructions Recorded Confirmed Type ibuprofen 800 mg PO Q4-6H PRN 07/21/18 08/31/18 History ropinirole 0.5 mg PO QHS 07/21/18 08/31/18 History Subjective ROS: I reviewed the 12-point Review of Systems with the patient as per our standard questionnaire. Objective Height 5 ft 6.54 in Weight 65.7 kg Temp 98 F 08/31/18 08:37 Pulse 105 H 08/31/18 08:37 Resp 20 08/31/18 08:37 BP 123/74 08/31/18 08:37 Pulse Ox 98 08/31/18 08:37 Pain: 0/10 Emotional Needs Assessment: Emotional Needs Identified? No Distress Screening Total 0 Physical Exam: Physical examination today shows an alert, oriented pleasant female who is in no acute distress. HEENT examination of endocrine neuropathy. No palpable cervical or supraclavicular lymphadenopathy. Local exam of left breastshows a healing surgical incision in the upper outer quadrant with underlying postoperative thickening and induration as expected. No discrete palpable mass in the left breast or axilla. Right breast regular also without any masses. She has no lymphedema of the upper extremities. Her lungs are clear to auscultation. Cardiac examination is unremarkable. No spinal or paraspinal tenderness. Abdomen is soft and nontender and there is no palpable mass or organomegaly. Pelvic and rectal examination were not done and patient states that she had a Pap smear in April 2018 at this was reportedly negative. She has no leg edema. She remains neurologically stable including her motor, sensory and cerebellar functions. Results CBC & Chem 7: 06/21/18 10:53 06/21/18 10:53 Impression: Invasive ductal carcinoma of the left breast in the upper outer quadrant, stage pT2 pN0 M0, grade 2, ER positive, NY positive and HER-2 negative status post lumpectomy and sentinel node biopsy. Her Oncotype score is 9 (low risk). Assessment & Plan (1) Carcinoma of upper-outer quadrant of left breast in female, estrogen receptor positive Plan: Patient with clinically localized left breast carcinoma the upper outer quadrant, stage pT2 pN0 M0, stage Ib is ER/ [place] receptor positive and HER-2/marcin negative. Her Oncotype score is a low risk category and she will not receive any systemic chemotherapy. I should plan with primary external radiation therapy treatments for 4 weeks with 3D conformal planning and ABC technique to spare her heart tissue as much as possible. Pros and cons of radiation therapy were discussed with the patient in detail and an informed consent has been signed. She had an appointment see Dr. Salas on Tuesday for final clearance and thereafter, she will return for his examination and initiation of radiation therapy treatments. Total Time Spent with Patient: Greater than 30 minutes More than 50% of time allotted to patient education, answering questions, and coordinating care. N.B: Voice-recognition software was used in the creation of this note. Efforts were made to detect and correct typographical and/or grammatical errors;please excuse them should you find any. Dictated By: Margarita Mora MD DD/ 0926 Signed By: <Electronically signed by Margarita Mora MD> 08/31/18 3528 [facility] Work Phone: [phone]) 874-467703-21-2019 Progress note Author Vivek Wells [facility] August 31, 2018 9:04am Note Date/Time August 31, 2018 8:5 5am [facility] [place] [address] Hem/Onc Follow Up Note - OP Signed Patient: Eneida Mejia MR#: [id number] : 1975 Acct:[id number] Age/Sex: 43 / F Type: REG RCR Copies to: Tomi Salas APRN, CAMERA ASSEMBLER~ Subjective Date/Time of Service: Date of Service: 08/31/2018 Time of Service: 08:53 Chief Complaint: Follow up to review oncotype - Diagnosis DIAGNOSIS: 1. Stage IB (pT2-2.2cm, N0-0/2 nodes, Mx), ER 90%, NY 95%, Her-2 negative, grade2 (Alejandro score 7), diagnosed ultrasound-guided biopsy on 05/18/18. -Presentation was a self-palpable breast mass in the setting of history of breast cysts, found to have a developing 2.4 cm area concerning malignancy on the diagnostic mammogram that was performed 05/15/18. -Final pathology from left breast lumpectomy and sentinel biopsy that was performed on 07/28/18: 2.2 cm invasive ductal carcinoma carcinoma with associatedDCIS, 2 out of 2 resected sentinel nodes were negative for metastatic carcinoma,margins were negative both for invasive carcinoma and DCIS. -Oncotype DX score 9, risk of distant metastasis on endocrine therapy <3% at 9 years, benefit of chemotherapy<1%; [employer] OvaNext gene panel: NEGATIVE. The panel included the following genes:~BRIAN, BARD1, BRCA1, BRCA2, BRIP1, CDH1, CHEK2, EPCAM (deletion/duplication only), DICER1, MRE11A, MLH1, MSH2, MSH6, MYH, NBN, NF1, PALB2, PMS2, PTEN, RAD50, RAD51C, RAD51D, SMARCA4, STK11, and TP53 (sequencing and deletion/duplication). All of the geneswere analyzed using next generation sequencing technology, as well as deletion and duplication analysis. HPI: Mrs. Mejia returns to discuss lab results and the plan. She reports feeling well, no interval changes. - Summary of Therapies Summary of Therapies: 1. Left breast lumpectomy and sentinel biopsy on 07/28/[address] Salas. 2. To start Adjuvant radiation. 3. To start Adjuvant endocrine therapy with Tamoxifen after radiation. Subjective/ROS - Narrative: CONSTITUTIONAL: No weight loss, fever, chills, weakness or fatigue. CARDIOVASCULAR: No chest pain, chest pressure or chest discomfort. No palpitations or edema. RESPIRATORY: No shortness of breath, cough or hemoptysis. GASTROINTESTINAL: No dysphagia, nausea, vomiting or diarrhea. No abdominal pain,melena, hematochezia. GENITOURINARY: No dysuria, urinary frequency or urgency. NEUROLOGICAL: No headache, dizziness, syncope, numbness or tingling in the extremities. MUSCULOSKELETAL: No back pain, or joint pain. ONC PMFSH - General Attestation statement: The following information was validated with the patient. - Medical History Medical history: No Medical History - Surgical History Surgical History Comment: ovary removed - Cardiac History Patient on Biofuels Product Development Manager: No Does Patient Have Pacemaker?: No - Psych History Psychiatric history: no psych history - URINALYSIS TECHNICIAN Hx : 2 Para: 2 URINALYSIS TECHNICIAN history: no URINALYSIS TECHNICIAN history - Family History Family History: no significant family history Family History Comments: Paternal grandfather cancer - Social History History of Any Tobacco Product Use?: Yes Tobacco Type: cigarettes Do you ever drink alcohol (including beer or wine)?: Yes Did you previously drink alcohol, but have since quit?: No Hx Recreational Drug Use?: No Home Medications & Allergies Allergies Allergy/AdvReac Type Severity Reaction Status Date / Time morphine Allergy Unknown Verified 08/11/18 06:06 Reaction band aid adhesive Allergy Rash Uncoded 08/11/18 06:06 Home Medications Medication Instructions Recorded Confirmed Type ibuprofen 800 mg PO Q4-6H PRN 07/21/18 08/31/18 History ropinirole 0.5 mg PO QHS 07/21/18 08/31/18 History Objective - Height/Weight Height/Weight: Height 5 ft 6.54 in Weight 65.7 kg - Vital Signs Vital Signs: 08/31/18 08:37 Temperature 98 F Pulse Rate [Left Brachial] 105 H Respiratory Rate 20 Blood Pressure [Left Arm] 123/74 02 Sat by Pulse Oximetry 98 - Pain Left Breast Pain Intensity: 3 - Emotional Needs Assessment Emotional Needs Assessment: Emotional Needs Identified? No Distress Screening Total 0 - ECOG Performance Status ECOG Score: 0 Physical Exam Narrative: GENERAL APPEARANCE: In no acute distress. HEENT: Moist and clear. EXTREMITIES: No edema. NEUROLOGIC: Grossly intact. Results - Labs Labs: Diagram of Most Recent CBC and CMP 06/21/18 10:53 06/21/18 10:53 Outside Labs: Oncotype DX: score 9, low risk of distant metastasis with endocrine therapy alone Assessment and Plan (1) Carcinoma of upper-outer quadrant of left breast in female, estrogen receptor positive Stage IB (pT2-2.2cm, N0-0/2 nodes, Mx), ER 90%, [place] 95%, Her-2 negative, grade 2 (Alejandro score 7). ECOG 0. Clinical no symptoms to suggest distant metastases, CBC and CMP normal. -Today we discussed n Oncotype DX results, score 9, predicting low risk of distant metastasis endocrine therapy alone based on the 9-year follow-up resultsof the TAILORx study (N Engl J Med 2018; 379:111-121), where 9719 woman with ER- positive and node-negative breast cancer were cutting categorized into thee riskgroups: <11, 11-25, and >25. Benefit of chemotherapy appeared to be minimal inpatient with low risk disease regardless of their age. Mrs. Mejia is comfortable without receiving chemotherapy. The patient will be discussed at [facility] tumor conference. She is going to this with radiation oncology later today. -I will see her back in 4 weeks for a survivorship follow up and discuss timing of starting tamoxifen. She has no personal or family history of VTE or uterine cancer, not on depression medications, a good candidate of Tamoxifen. Time spent 20 min. - Time with Patient Coordination of Care & Counseling Time: Greater than 50% of time spent with patient was for coordination of care (as documented) and [id number] counseling of patient and/or family. Dictated By: Vivek Wells MD DD/ 0853 Signed By: <Electronically signed by Vivek Wells MD> 08/31/18 0904 [facility] Work Phone: [phone] 505-271503-13-2019 Progress note Author Tara Hernandez [facility] August 23, 2018 11:09am Note Date/Time August 23, 2018 11: 06am [facility] [place] [address] Genetics Follow Up Note Signed Patient: Eneida Mejia MR#: [id number] : 1975 Acct:[id number] Age/Sex: 43 / F Type: REG RCR Copies to: MD Maritza Herrera Fredric DO Jennifer Hacker APRN, CNP~ Genetics Follow Up Note Narrative: HPI: Ms. Eneida Mejia is a 43-year old female with a personal history of early-onsetbreast cancer. She was referred to the Cancer Genetics Clinic at [facility] by her physician, Dr. Salas. Ms. Mejia was originally seen in the Cancer Genetics Clinic on 06/21/18, and we suggested testing for mutations in the BRCA1 and BRCA2 genes, as well as 6 additional highrisk genes implicated in increased risk for breast and other cancers. Results ofhigh risk 8 gene panel was discussed with the patient previously. We then reflexed to a larger gene panel for a total of 25 genes. She returns to the Cancer Genetics Clinic today, 08/23/18 to discuss her results.This letter will summarize our conversation, and our recommendations for her future health care. RESULTS: [employer] OvaNext gene panel: NEGATIVE Ms. Mejia does not have an identifiable deleterious mutation in any of the genesanalyzed on the [place] panel. These genes include the following:~BRIAN, BARD1, BRCA1, BRCA2, BRIP1, CDH1, CHEK2, EPCAM (deletion/duplication only), DICER1, MRE11A, MLH1, MSH2, MSH6, MYH, NBN, NF1, PALB2, PMS2, PTEN, RAD50, RAD51C, RAD51D, SMARCA4, STK11, and TP53 (sequencing and deletion/duplication). All of the genes were analyzed using next generation sequencing technology, as well as deletion and duplication analysis. IMPRESSION: Ms. Mejia is a 43-year-old woman with a personal history of breast cancer. Because of her person history, it was suggested that she undergo genetic testingfor mutations in the BRCA1 and BRCA2 genes. In addition, 23 additional genes were examined that have all been linked to an increased risk for breast cancer. Therefore, the normal genetic testing results for Ms. Mejia greatly reduces the possibility of hereditary breast and ovarian cancer syndrome (HBOC) for her. In practical terms, additional risk reducing prophylactic surgeries are not indicated from a genetic standpoint for Ms. Mejia or her family members. Finally, genetic testing for her female relatives is not indicated based on her normal genetic testing results. We discussed that breast cancer is most often heterogeneous caused by the combination of genetic and environmental factors. Many of these factors are not known, so further testing will need to wait for advances in medical science thatwill come with time. Ms. Mejia's history is most likely consistent with a familial cancer risk of unknown etiology. We suggested that Ms. Mejia or her family members contact the [facility] in 3 years to see if additional genetic testing has been developed that would be useful for her or for her family members. At this point in time, the best option for Ms. Mejia's daughter and other femalerelatives would be to undergo screening and surveillance for breast cancer. Her daughter is at a 2 fold increased risk for breast cancer. Screening is recommended 10 years prior to the earliest age of diagnosis in the family, or 32years of age. PLAN: 1. Ms. Mejia was not found to have detectable mutations in her BRCA1 or BRCA2 genes. She was also not found to have detectable mutations in 23 additional genes associated with an increased risk for breast and other cancers. A copy of her test results was given to the patient. She is encouraged to discuss this information with her physicians and with her family members. We have not identified a genetic factor that is causing the cancer in Ms. Mejia. 2. Ms. Mejia's daughter and female relatives remain at elevated risk for breast cancer. Genetic testing is not recommended, however, as Ms. Richardson genetic testresults are normal. Her daughter can discuss the family history with her individual physician, and develop an appropriate cancer screening plan. Mammograms should begin at 32 years of age (10 years earlier than Ms. Mejia?s diagnosis). 3. Ms. Mejia is encouraged to contact us in 3 years to update the family historyand discuss additional cancer susceptibility testing, if available. 4. We remain available at the [facility] at [phone] for questions or concerns about the information discussed at this appointment. Tara Hernandez MD Clinical Loan Representative Departments of Genetics and Genome Sciences and Pediatrics [facility] Total counseling time 10 min. Dictated By: Tara Hernandez MD DD/ 02 Signed By: <Electronically signed by Tara Hernandez MD> 08/23/18110[address] [facility] Work Phone: [phone] 173-369903-12-2019 Consult note Author Vivek Wells [facility] August 22, 2018 2:19pm Note Date/Time August 11, 2018 3:00 pm [facility] [place] [address] Hem/Onc Consult Note - OP Signed with Addenda Patient: Eneida Mejia MR#: [id number] : 1975 Acct:[id number] Age/Sex: 43 / F Type: REG RCR Copies to: Tomi Salas APRN, CAMERA ASSEMBLER~ ADDENDUM1 Oncotype Dx score 9, Rad Onc referral made. Addendum Dictated By: Vivek Wells MD Addendum Signed By: Addendum Cosigned By: DD/ /31/1419 TD/TT: 08/22/1805/31/1419 HPI Date/Time of Service: Date of Service: 08/11/2018 Time of Service: 14:59 Referring Provider/PCP: Referring Provider: Tomi Salas DO PCP: Rosalba Adorno APRN PODIATRY PROFESSORNelia - History of Present Illness Reason for Consultation: Resected breast cancer Chief Complaint: New patient appt breast cancer HPI: Dear Dr. Salas, I have seen the patient in consultation, I would like to thank you for the referral. As you know, Mrs. Mejia is a 43-year-old lady, who has a history of breast cysts, diagnosed upon evaluation of a self-palpable breast mass last year, who was found to have a developing 2.4 cm area concerningmalignancy on the diagnostic mammogram that was performed 05/15/18. This has led to a ultrasound- guided biopsy on 05/18/18, pathology showed ER positive invasive ductal carcinoma, with associated DCIS. She underwent left breast lumpectomy and sentinel biopsy by you on 07/28/18, final pathology revealed a 2.2 cm invasive ductal carcinoma carcinoma with associated DCIS, 2 out of 2 resected sentinel nodes were negative for metastatic carcinoma, margins were negative both for invasive carcinoma and DCIS. Medical oncology consultation is requested for evaluation. Mrs. Mejia reports doing well, she just had a hematoma evacuated this morning, still has some pain around surgical site. Otherwise no complaints. She alreadyhad a genetic counseling, results pending. ONC [facility] - General Attestation statement: The following information was validated with the patient. - Medical History Medical history: No Medical History - Surgical History Surgical History Comment: ovary removed - Cardiac History Patient on Biofuels Product Development Manager: No Does Patient Have Pacemaker?: No - Psych History Psychiatric history: no psych history - URINALYSIS TECHNICIAN Hx : 2 Para: 2 URINALYSIS TECHNICIAN history: no URINALYSIS TECHNICIAN history - Family History Family History: no significant family history Family History Comments: Paternal grandfather cancer - Social History History of Any Tobacco Product Use?: Yes Tobacco Type: cigarettes Do you ever drink alcohol (including beer or wine)?: Yes Did you previously drink alcohol, but have since quit?: No Hx Recreational Drug Use?: No Home Medications & Allergies Allergies Allergy/AdvReac Type Severity Reaction Status Date / Time morphine Allergy Unknown Verified 08/11/18 06:06 Reaction band aid adhesive Allergy Rash Uncoded 08/11/18 06:06 Home Medications Medication Instructions Recorded Confirmed Type ibuprofen 800 mg PO Q4-6H PRN 07/21/18 08/11/18 History ropinirole 0.5 mg PO QHS 07/21/18 08/11/18 History Subjective Data Subjective/ROS - Narrative: CONSTITUTIONAL: No weight loss, fever, chills, weakness or fatigue. HEENT: Eyes: No visual loss, blurred vision, double vision or yellow sclerae. Ears, Nose, Throat: No hearing loss, epistaxis. SKIN: No rash or itching. CARDIOVASCULAR: No chest pain, chest pressure or chest discomfort. No palpitations or edema. RESPIRATORY: No shortness of breath, cough or hemoptysis. GASTROINTESTINAL: No dysphagia, nausea, vomiting or diarrhea. No abdominal pain,melena, hematochezia. GENITOURINARY: No dysuria, urinary frequency or urgency. NEUROLOGICAL: No headache, dizziness, syncope, numbness or tingling in the extremities. MUSCULOSKELETAL: No muscle, back pain, joint pain or stiffness. HEMATOLOGIC: No bleeding or bruising. LYMPHATICS: No enlarged nodes. PSYCHIATRIC: No history of depression or anxiety. ENDOCRINOLOGIC: No reports of sweating, cold or heat intolerance. No polyuria orpolydipsia. ALLERGIES: No history of asthma, hives, eczema or rhinitis. Objective - Height/Weight Height/Weight: Height 5 ft 6.54 in Weight 65.4 kg - Vital Signs Vital Signs: 08/11/18 13:12 Temperature 97.8 F Pulse Rate [Left Brachial] 85 Respiratory Rate 20 Blood Pressure [Left Arm] 123/76 02 Sat by Pulse Oximetry 96 - Pain Left Breast Pain Intensity: 3 - Emotional Needs Assessment Emotional Needs Assessment: Emotional Needs Identified? No Distress Screening Total 0 - ECOG Performance Status ECOG Score: 0 Physical Exam Narrative: GENERAL APPEARANCE: Well developed, well nourished, in no acute distress. SKIN: Inspection of the skin reveals no rashes, ulcerations or petechiae. HEENT: The sclerae were anicteric and conjunctivae were pink and moist. EOMI, PERRLA. The oral mucosa is moist and clear. NECK: Supple and symmetric. There was no mass felt. CHEST: Normal contour without any kyphoscoliosis. LUNGS: Normal breath sounds on auscultation without rales, rhonchi, or crackles. CARDIOVASCULAR: S1 and S2, regular rate and rhythm, no murmurs, gallops, rubs. ABDOMEN: Soft, nontender, bowel sounds normal. No hepatosplenomegaly. No mass palpated. LYMPH NODES: No lymphadenopathy was appreciated in the neck, axillae or groin. MUSCULOSKELETAL: Gait was normal. There was no tenderness or effusions noted. Muscle strength and tone were normal. EXTREMITIES: No cyanosis, clubbing or edema. NEUROLOGIC: Alert and oriented x 3. Normal affect. Sensation to touch was normal. Results - Labs Labs: Diagram of Most Recent CBC and CMP 06/21/18 10:53 06/21/18 10:53 Liver enzymes normal. Pathological diagnosis, 05/18/18: A.left breast, 1:00, 5 cm from nipple, biopsy: -Invasive ductal carcinoma, [place] histologic score 6 (3+3+1) -Ductal carcinoma in situ, nuclear grade 1-2, cribriform pattern, with focal central necrosis. -ER positive at 90%; [place] 95%; HER-2 IHC 2+, FISH negative ratio 1.0 Pathological diagnosis 07/28/18: A.sentinel lymph nodes, left axilla, biopsy: -2 lymph nodes, negative for metastatic carcinoma. B.left breast, lumpectomy: -Invasive ductal carcinoma, Alejandro histologic score 7(2+3+2), size 22 mm. -Ductal carcinoma in situ, nuclear grade 3, solid, cribriform and comedo patterns, with focal central necrosis. -Margins are negative for invasive carcinoma and DCIS, closest superior margin is <1 mm from invasive carcinoma, and 2 mm from DCIS. -Background breast parenchyma showing 0 and atypical ductal hyperplasia, sclerosing adenosis with associated microcalcifications, fibrocystic changes, columnar cell change and the prior biopsy site reaction. -Pathological stage pT2,pN0 - Other Results Results/Comments: 05/15/18 MM/MM diagnostic mammo BI w/CAD: LUMP LT BREAST ([id number]) US/US breast LT limited: N63.20 Tomosynthesis craniocaudal and mediolateral oblique views of both breasts were obtained using low-dose digital technique. Spot magnification views were also performed on the left. Comparison is made to the prior study from March 09, 2017. This examination was reviewed with the aid of CAD. The breast parenchyma is heterogeneously dense. There is question of very subtledistortion at the upper outer left breast in the area marked as palpable. Posterior to this is a cluster of small calcifications of variable size and density. There are few calcifications at the central right breast that have not significantly changed. There are no other definite discrete masses or distortion. LEFT BREAST ULTRASOUND COMPARISON: March 09, 2017 Real-time ultrasound evaluation of the upper outer aspect of the breast was performed. At the 1 to 2:00 position, 5 cm from the nipple, there is still a deep circumscribed hypoechoic nodular area along the pectoralis that might be a cyst with intraluminal debris. It measures 19 x 5 x 21 mm. This is similar. A fibroadenoma is still also in the differential. Slightly further from the nippleat 1:00, there is an ill-defined irregular hypoechoic area that is believed to correlate with the site of palpable concern. It measures 2.0 x 1.4 x 2.4 cm. Even further from the nipple at the 1:00 position, there is a small hypoechoic area with subtle hyperechoic foci that may correlate with the calcifications seen mammographically. Cursory evaluation of the axilla shows a lymph node with fatty hilus and uniform 3 mm cortex. IMPRESSION: IRREGULAR HYPOECHOIC AREA AT THE SITE OF PALPABLE CONCERN AT THE UPPER OUTER LEFT BREAST WHICH IS A SUSPICIOUS FINDING FOR WHICH ULTRASOUND-GUIDED BIOPSY IS RECOMMENDED. CLUSTERED CALCIFICATIONS AT THE UPPER-OUTER LEFT BREAST WITH CORRESPONDING HYPOECHOIC NODULAR AREA ON ULTRASOUND. BIOPSY OF THIS AREA IS ALSO SUGGESTED. COMPLEX CYST VERSUS FIBROADENOMA AT THE UPPER OUTER LEFT BREAST, SIMILAR TO THE PRIOR. CONTINUED ULTRASOUND FOLLOW-UP IS RECOMMENDED IN ONE YEAR. NO MAMMOGRAPHIC EVIDENCE OF MALIGNANCY ON THE RIGHT. Assessment and Plan (1) Carcinoma of upper-outer quadrant of left breast in female, estrogen receptor positive Stage IB (pT2-2.2cm, N0-0/2 nodes, Mx), ER 90%, [place] 95%, Her-2 negative, grade 2 (Alejandro score 7). ECOG 0. Clinical no symptoms to suggest distant metastases, CBC and CMP normal. -Today we discussed the natural history of stage Ib ER-positive breast cancer, prognosis is good. However, for this young woman with a grade 2, pT2 tumor, adjuvant chemotherapy should be considered. We discussed the updated 9-year follow-up results of the TAILORx study (N Engl J Med 2018; 379:111-121), where 9719 woman with ER-positive and node-negative breast cancer were cutting categorized into thee risk groups based on Oncotype DX score: <11, 11-25, and >25. Some benefit of chemotherapy found in woman 50 year of age or younger witha recurrence score >15. In the study, about 24% patient had tumor size>2 cm. She is open to the option, Oncotype Dx study was sent, expect to result in 2-3 weeks. -The patient will be discussed at [facility] tumor conference, I will see her back in 3 weeks to discuss results and the plan. She already had a genetic counseling, results pending. -If we can forego chemotherapy based on Oncotype DX score, she will be a candidate of adjuvant radiation and endocrine therapy. Questions were invited, all answered to their satisfaction. Thank you for having me participate in the care of this pleasant lady, this is ahigh complexity encounter, time spent 110 minutes. - Time with Patient Total Time Spent with Patient: 60 min Coordination of Care & Counseling Time: Greater than 50% of time spent with patient was for coordination of care (as documented) and [id number] counseling of patient and/or family. Dictated By: Vivek Wells MD DD/ 1459 Signed By: <Electronically signed by Vivek Wells MD> 08/11/18 1647 [facility] Work Phone: [phone]) [phone] Consult note Author Tara Heranndez [facility] June 21, 2018 3:00pm Note Date/Time June 21, 2018 12 :16pm [facility] [place] [address] Genetics Consult Note Signed Patient: Eneida Mejia MR#: [id number] : 1975 Acct:[id number] Age/Sex: 43 / F Type: PRE RCR Copies to: Tomi Salas APRN, GABRIEL~ Genetics Consultation Note - Consult Note Narrative: HISTORY OF PRESENT ILLNESS: Ms. Eneida Mejia is a 43-year old female with a personal history of early-onsetbreast cancer. She was referred to the Cancer Genetics Clinic at [facility] by her physician, Dr. Salas. Ms. Mejia is interested in genetic testing to clarify her personal risks for cancer, as well as the risks to her family members. She would like to use the results of genetic testing to make a final surgical decision. She was seen in clinic on 06/21/18. CANCER MEDICAL HISTORY: PERSONAL HISTORY OF CANCER? Yes TYPE: left breast cancer AGE OF DIAGNOSIS: 42 DIAGNOSIS AND TREATMENT: Screening mammogram identified a left breast mass, and a biopsy was done in May 2018. Pathology was consistent with invasive ductal carcinoma, ER/NY positive. Surgery date is pending. HISTORY of OTHER CANCERS? No CANCER SCREENING HISTORY: Mammograms? Yes, annually. Previous breast biopsies? No Vaginal ultrasound? Yes, had a myomectomy and removal of one tube and ovary in the past CA-125? No PAP smear? Yes, all negative Colonoscopy? No EGD? No Dermatology? No Other cancer screening? No REPRODUCTIVE HISTORY: # Children: 2 # Pregnancies: 2 Age first : 18 Breast feeding?: no Menarche (age): 12 Menopause (age): n/a OCP: no HRT: n/a FAMILY HISTORY: A four-generation pedigree was obtained and was significant for the following: -Patient, breast cancer, diagnosed at 42 -Maternal grandfather, cancer NOS, in his early 60s Ms. Mejia is of Mixed /[place] descent. There is no known Ashkenazi Restorationism ancestry. Consanguinity was denied. OFC: 53 cm Tobacco use: Yes, 6-10 per day IMPRESSION: Eneida Mejia is a 43 year old woman with a personal history of early onset breast cancer. She meets NCCN guidelines for genetic testing of the BRCA1 and BRCA2 genes. This testing is recommended, as it will significantly impact Ms. Mejia?s care. Specifically, if positive, she will consider a bilateral mastectomy and will have her remaining ovary removed. GENETIC COUNSELING: We reviewed genes and chromosomes, inherited forms of breast and ovarian cancer,and the BRCA1 and BRCA2 genes causing hereditary breast and ovarian cancer (HBOC). We discussed that most cancers are not due to an inherited genetic susceptibility. However, in about 5-10% of families, there is an inherited genetic mutation that can make a person more susceptible to developing certain forms of cancer. Within these families, we often see multiple family members with cancer, occurring in multiple generations. In addition, earlier onset and bilateral cancers are suggestive of an inherited form of cancer. Finally, there is a clustering of certain types of cancer in these families, such as breast andovarian cancer. We discussed the BRCA1 and BRCA2 genes, which are two genes that have been linked to early-onset breast and/or ovarian cancer. Mutations in these genes areinherited in a dominant pattern and confer up to an 87% lifetime risk for breastcancer. This is elevated compared to the general population risk of 10-12%. In addition, BRCA1 and BRCA2 mutation carriers have up to a 45% lifetime risk for ovarian cancer, which is elevated over the 2% general population risk. Mutation carriers who have already been diagnosed with cancer have an increased risk to develop a second, contralateral breast cancer. BRCA2 gene mutation carriers havean increased risk for male breast cancer, prostate cancer, melanoma, gastric cancer, and pancreatic cancer. We discussed that there are multiple genes associated with increased breast cancer risk. Some genes, like the BRCA1/2 genes, are considered highly penetrantbreast cancer genes, meaning a mutation in the gene confers a high risk of breast cancer. Additionally, there are other intermediate (moderate risk) breastcancer genes. For some of the moderate risk genes, there is often limited information regarding the degree to which a mutation in the gene affects risk ofdifferent types of cancers. Additionally, for some of these moderate risk genes,the appropriate management for individuals who have a mutation in one of these genes is not always clear. In some cases, even if an individual tests positive for a mutation in a moderate risk gene, recommendations may still based on the family history, not the positive test result. Our knowledge about the cancer risks associated with mutations in these moderate risk genes is always growing, and we will likely be able to provide more comprehensive information in the future. Ms. Mejia was counseled about hereditary cancer susceptibility including cancer risks, options for increased screening and/or risk reduction, genetic testing, and the implications for other family members. We discussed performing BRCA1 andBRCA2 genetic testing in the context of a gene panel test that looks at multipledifferent genes that have been shown to increase cancer risk including risk for breast cancer. After discussion about the risks, benefits, and limitations of genetic testing, Ms. Mejia elected to undergo genetic testing using a stepwise approach. We will first obtain results on the 8 high risk breast cancer genes that include the following: BRCA1, BRCA2, BRIAN, PALB2, CDH1, CHEK2, TP53 and PTEN. These results should be available within 7-10 days, and Ms. Mejia will benotified by telephone of the results. These are the genes that would impact a surgical decision, if positive. If negative, reflex testing to [facility] panel will be performed, which looks at the following additional genes: BARD1, BRIP1, DICER1, EPCAM, MLH1, MRE11A, MSH2, MSH6, MUTYH,NBN, NF1, PMS2, RAD50, RAD51C, RAD51D, SMARCA4, and STK11. Results of this testing are typically available within 3 weeks, and [facility] discuss all of her testing results. At that time, we will make recommendations for both Ms. Mejia and her family members in terms of cancer screening and/or cancer risk reduction options. PLAN: 1. Ms. Mejia elected to undergo genetic testing, and this will be done in a stepwise approach. Consent for testing was signed and blood was drawn. The sample was sent to [facility] for analysis. The 8 gene high riskpanel is usually available in 7-10 days. The larger panel results are expected in 3 weeks. 2. We remain available to Ms. Mejia or her family members at [phone] if anyquestions arise regarding information discussed at today's visit. Starr Pack MS Licensed Genetic Counselor [facility] Tara Hernandez MD Clinical Loan Representative Departments of Genetics and Genome Sciences and Pediatrics [facility] PHYSICIAN STATEMENT OF TIME: I spent 10 minutes with this patient and >50% was spent on counseling and coordination of care. Dictated By: Starr Pack DD/ 1215 Signed By: <Electronically signed by Starr Pack> 06/21/18 1216 <Electronically signed by Tara Hernandez MD> 06/21/18 1500 [facility] Work Phone: Evaluation note* Diagnosis Onset Date Resolution Status Decreased sex drive acute Encounter for smoking cessation counseling acute Tobacco dependence acute [id number] chronic Encounter for monitoring tamoxifen therapy chronic Noncompliance with diagnostic testing chronic Noncompliance with medication regimen chronic [facility] Work Phone: Evaluation noteNo assessment information available [facility] Work Phone: History general Narrative - Reported* Type Description Date Surgical History ovarian tumor Surgical History breast cancer [facility] Other Hospital Discharge instructions Additional Instructions POST OPERATIVE INSTRUCTIONS FOR THE ANKLE FRACTURE Rodrigo Hernandez DO Orthopedic Surgeon [facility] General instructions: Use ice packs to the area of the incision as much as you can tolerate (30 minutes on/30 minutes off) over the first 48-72 hours post-operatively. DO NOT apply ice directly to the skin. Always place a towel between the ice pack and skin. Low grade temperatures are common after surgery. Please notify the office if your temperature exceeds 101.5 degrees Fahrenheit. DO NOT make critical decisions or sign legal papers for the first 24 hours after surgery or while taking pain medication. MEDICATIONS AND DIET: You may resume all pre-operative medications unless otherwise specified. Only take pain medication as prescribed, as needed. We recommend taking a baby aspirin (81mg) twice daily for about 4 weeks to help with the development and progression of blood clots You should take pain medication with food. It is not uncommon to have nausea or an upset stomach after surgery. Medication refills require a 48-hour notice; no exceptions will be made. NO REFILLS will be authorized over the weekend. Do not take extra Tylenol while taking prescription pain medication unless otherwise specified. If you have a reaction to your medications, stop taking them and call the office immediately. If you develop a significant rash, or have trouble breathing, call 911 or go immediately to the nearest emergency room. ACTIVITY: You have a dressing/splint on your leg. Keep in place until your first follow-up appointment It is recommended to elevate your operative leg for the first 48-72 hours to help prevent swelling and pain You are NON-WEIGHTBEARING on your operative extremity. You are to ambulate with crutches. If you are unable to do so, please use a walker. If your ankle is not immobilized, it is recommended to perform ankle pumps to help with blood flow and venous return to your leg. DRESSING/BANDAGES: Your surgical bandage may show some drainage over the first 24-48 hours following surgery. Keep your bandage/splint in place until follow-up If your bandage becomes saturated, please notify the office. When you are cleared to shower, DO NOT submerge the incision in a bath, hot tub, swimming pool, or any other body of water for the first 4 weeks following surgery. When you are cleared to shower, DO NOT scrub your incision. Simply allow soapy water to run over your incision. Pat dry or air dry for the first 3 weeks from surgery FOLLOW UP: Your first post-operative appointment should already be scheduled for you. If you do not already have a post-operative appointment, our office will contact you to schedule one. You should be seen in the office two weeks following your surgery unless otherwise specified. If you notice any increasing swelling, wound redness, or drainage, please contact our office immediately. 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 Observation and annual mammograms were recommended and and her next mammogram in April 2018 showed enlarging mass in the same area. Patient had lumpectomy and sentinel node biopsy on 07/28/2018. Final pathology report confirmed a 2.2 cm invasive ductal carcinoma with associated ductal carcinoma insitu and the margins of resection were negative. 2 lymph nodes in the axilla was also negative and her pathological staging was pT2 pN0 M0. The ER/NY receptors were positive and the HER-2/marcin was negative. Patient did have resection of a hematoma from the lumpectomy site on 08/11/2018 and subsequently, she had healed well. Patient also had a Oncotype testing and her Oncotype scorewas 9 (low risk). Dr. Doyle had seen the patient and she did not receive any systemic therapy but she did undergo primary radiation therapy treatments to herleft breast with completion of her treatments in September 2018. Post- radiation, shewas started on tamoxifen but she only took it for few months and stopped taking it. Subsequently, Dr. Sewell reduce the dose of tamoxifen and patient continues to take them without any issues. She missed her last mammograms last week and this was rescheduled for next week. She returned today for her scheduled radiation oncology follow-up and her only complaint is slight fullness of the left breast with occasional discomfort. I reassured her and told her that thesewere expected post-surgical and post-radiation side effects and should resolve over period of time. She has no complaints of any breast lumps, arm swelling, cough, sore throat, difficulty in swallowing, headaches, nausea, back pain, abdominal discomfort, urinary or bowel problems, intermenstrual bleeding, leg swelling, motor or sensory changes. She has been active and her appetite is good and weight remains stable. No complaint of fever, chills or night sweats. I've closely reviewed the patient's oncologic, medical, surgical, social, and family history. Changes noted above. I also reviewed the patient's medicationsvia reconciliation, as per the nursing record. - Review of Systems ROS: As per HPI. Objective Height 5 ft 6.54 in Weight 57.878 kg Temp 97.8 F 05/31/22 09:12 Pulse 100 H 05/31/22 09:12 Resp 18 05/31/22 09:12 BP 148/99 H 05/31/22 09:12 Pulse Ox 98 05/31/22 09:12 O2 Del Method Room Air 05/31/22 09:12 Pain: 0/10 Distress Screen Results: RN Distress Screening Start: 08/11/18 12:59 Freq: Status: Active Protocol: Document 01/16/19 08:44 BG (Rec: 01/16/19 08:44 BG [email or web address]) Distress Screening Distress Score: 0 No worry/distress Distress Screening Total 0 Karnofsky Performance Scale: 90%: Can perform normal activity, minor signs of disease Physical Exam: Physical examination today shows an alert, oriented pleasant female who is in no acute distress. HEENT examination did not reveal any cranial neuropathy. No palpable cervical or supraclavicular lymphadenopathy. Local exam of left breast shows mild swelling as compared to the right and the cosmetic result is moderately good. The surgical scar in the upper outer quadrant is well-healed and there is moderate indentation of the skin (as expected from her lumpectomy and prior radiation) and there is still some residual underlying post-operative thickening and induration as expected. No discrete palpable mass in the left breast or axilla. Cosmetic result is moderate. Right breast and axilla are are also without any masses. She has no lymphedema of the left upper extremity. Her lungs are clear to auscultation. Cardiac examination is unremarkable. No spinal or paraspinal tenderness. Abdomen is soft and nontender and there is no palpable mass or organomegaly. Pelvic and rectal examination were not done and patient states that she had a Pap smear which was reported negative. She has no leg edema. She remains neurologically stable including her motor, sensory and cerebellar functions. 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 On today's examination, she has no clinical evidence of residual or recurrent disease in the left or right breast. Patient will continue on her tamoxifen and also follows up regularly with Dr. Sewell. She missed her follow-up mammogram appointment last week and this will be rescheduled for next week. She will return for her next scheduled ration oncology follow-up in 1 year. Dictated By: Margarita Mora MD DD/ 1231 Signed By: <Electronically signed by Margarita Mora MD> 05/31/22 1242 [facility] Work Phone: Progress note Author Carmela Sewell [facility] June 16, 2022 8:34am Note Date/Time June 16, 2022 8: 30am [facility] [place] [address] Hem/Onc Follow Up Note - OP Signed Patient: Eneida Mejia MR#: [id number] : 1975 Acct:[id number] Age/Sex: 47 / F Type: REG RCR Copies to: DO Rosalba Rodriguez APRN, GABRIEL~ Subjective Date/Time of Service: Date of Service: 06/16/2022 Time of Service: 08:28 Chief Complaint: Patient is here for a 6 month follow up for left breast cancer with mammogram for review. No concerns voiced. HPI: 06/16/2022: Weston has no new complaints. Notes that she has some allergies sincerecently getting a new rescue dog and thinks she has some sensitivity. She may use any [id number] nondrowsy allergy medicine such as Claritin or Rachna as this should not interact with her tamoxifen. Otherwise she notes that since decreasing tamoxifen to 10 mg daily in April 2021, she has had less hot flashes and overall tolerates the medication with stable mood and sex drive. Otherwise her mammogram shows no evidence of recurrence and no abnormalities on breast exam. She is no longer following with general surgery (it has been over 1 year) so we will continue to follow-up with her in 6 months with PODIATRY PROFESSOR exam. [facility] 20-minute follow-up visit. 12/16/2021: Eneida presents for follow-up for her breast cancer on tamoxifen. Sheis doing well today, denies hot flashes or any s/s DVT. She has tolerable mood swings and her sex drive is ok with the low dose tamoxifen. She denies n/v/d, constipation, dyspnea, chest pain or new bone pain anywhere. She denies any new complaints. We will continue with follow-up in 6 months. Her next mammogram willbe prior to follow- up in May. 06/17/2021: 6-week follow-up after changing tamoxifen to 10 mg daily due to her mood swings and excessive hot flashes. She notes that she tolerated this dose much better after stopping tamoxifen 8 months prior to last visit due to decreased sex drive. She otherwise feels that her symptoms on lower dose tamoxifen are reasonable for her to continue therapy for another 2 years to complete 5 years of therapy. I did offer her Effexor at low-dose for mood swings and hot flashes but she declined that at this time. May 2021 screening mammogram was reviewed showing no evidence of malignancy. Exam was deferred today since she was last examined in April. Next follow-up in 6 months for exam and review of symptoms. 04/29/2021: Ms. Mejia presented to the outpatient clinic for 1 year follow-up and transfer of care from my former partner Dr. Vivek Wlels, status post left breastlumpectomy 07/28/2018. She stopped Tamoxifen 8 months ago due to decreased sex drive. She reports no issues with any tumor, shortness of breath, chest pain, leg pain/edema, or abdominal vaginal bleeding (she had no menses while on Tamoxifen, now monthly with normal flow and duration). She continues followup with Dr. Salas (but has not seen him in over one year), and denies any breast skin changes or lumps. No recurrence on last breast MRI 08/2019--no mammogram over the past 2 years. We discussed that given her young age and premenopausal status, she has increased risk of recurrence. She is willing to resume Tamoxifen at reduced dose 10mg daily--we discussed possible Effexor that could be prescribed for hot flashes, mood swings, and sex drive. I will have her followup in one month after annual mammogram (overdue) and to review tolerance and compliance with medication. Thereafter, I will continue every 6 month followup, sooner prn. - Summary of Therapies Summary of Therapies: Summary of Therapies: 1. Left breast lumpectomy and sentinel biopsy on 07/28/[address] Salas. 2. Adjuvant radiation: 09/11/18- 10/06/18, 4256 cGy in 16 fractions, followed by an additional boost of 1000 cGy to the area of the tumor bed, total 5256 cGy in 20 fractions over 25 elapsed days. 3. Adjuvant endocrine with Tamoxifen, 20mg, PO, daily, 10/12/18-stopped on her own 08/2020 for poor tolerance. --04/2021: She resumed Tamoxifen 10mg po daily (declined AI with GnRH agonist)--continuing for 5-10 year course if well-tolerated due to younger age at diagnosis. ROS Details: All systems reviewed & no additional complaints except as documented Subjective/ROS - Narrative: Constitutional: Negative: chills, fatigue, fever, night sweats, weakness HEENT: Negative: Blurred vision, pain, epistaxis, rhinorrhea, sore throat Cardiovascular: Negative: Chest pain, edema, palpitations Respiratory: Negative: Cough, shortness of breath, hemoptysis Gastrointestinal: Negative: pain, bloating, constipation, diarrhea, nausea, vomiting Genitourinary: Negative: Frequency, dysuria, flank pain, hematuria Genitalia: Negative: Discharge, masses, hernia--prior hot flashes resolved, menses now monthly and normal duration/flow. Breasts: Negative: Pain, mass, discharge, dimpling Neurologic: Negative: Dizziness, headache, numbness, tingling Psychiatric: Negative: Anxiety, depression, sleep changes--prior mood swings with full dose Tamoxifen--improved with 10 mg dose. Hematologic/lymphatic: Negative: Bleeding, bruising, enlarged lymph nodes Endocrine: Negative: Excessive sweating, flushing, intolerance to cold, intolerance to heat, weight gain/loss Allergic/immunology: Negative: Pruritus, rash PMFSH - History Attestation statement: The following information was validated with the patient. Source: Old Records Reviewed - Medical History Medical History: Medical History (Last Reviewed 06/16/22 @ 08:30 by Carmela Sewell MD) Restless leg syndrome - Surgical History Surgical History: Surgical History (Last Reviewed 06/16/22 @ 08:30 by Carmela Sewell MD) History of lumpectomy of left breast and sentinel node bx 07/28/2018 - Social History Smoking Status: Current some day smoker Tobacco Type: cigarettes Substance Use Type: Alcohol Substance Abuse Comment: social Social History Comments: works with a [employer] and [employer]. one son. Home Medications & Allergies Allergies morphine Allergy (Verified 06/16/22 08:15) Unknown Reaction band aid adhesive Allergy (Uncoded 06/17/21 08:02) Rash Home Medications ibuprofen 200 mg tablet 800 mg PO Q4-6H PRN Pain 07/21/18 [History Confirmed 06/16/22] ropinirole 0.5 mg tablet 0.5 mg PO QHS PRN leg pain 07/21/18 [History Confirmed 06/16/22] tamoxifen 10 mg tablet 10 mg PO DAILY 90 days #90 tabs 11/30/21 [Rx Confirmed 06/16/22] Objective - Height/Weight Height/Weight: Height 5 ft 6.54 in Weight 56.9 kg - Vital Signs Vital Signs: 06/16/22 08:15 Temperature 97.7 F Pulse Rate [Left Brachial] 98 H Respiratory Rate 20 Blood Pressure [Right Arm] 128/63 02 Sat by Pulse Oximetry 96 Oxygen Delivery Method Room Air - Pain Left Breast Pain Intensity: 0 - Distress Screening Distress Screen Results: RN Distress Screening Start: 08/11/18 12:59 Freq: Status: Active Protocol: Document 01/16/19 08:44 BG (Rec: 01/16/19 08:44 BG [email or web address]) Distress Screening Distress Score: 0 No worry/distress Distress Screening Total 0 Physical Exam Narrative: GENERAL APPEARANCE: In no acute distress. HEENT: No scleral icterus or cervical lymphadenopathy. LUNGS: Clear to auscultation bilaterally, no rales, rhonchi, or crackles. CARDIOVASCULAR: S1 and S2, regular rate and rhythm, no murmurs, gallops, rubs. ABDOMEN: Soft, nontender, bowel sounds normal. No hepatosplenomegaly. No mass palpated. EXTREMITIES: No edema or calf tenderness. NEUROLOGIC: Grossly intact. Normal gait and nonfocal exam. Breast exam: Well healed left lumpectomy scar. No masses or skin changes, no nipple discharge or deviation. No axillary adenopathy noted. Right breast unremarkable. - ECOG Performance Status ECOG Score: 1 Results - Labs Labs: Diagram of Most Recent CBC and CMP 06/21/18 10:53 06/21/18 10:53 - Impressions BILATERAL SCREENING MAMMOGRAMS - FULL FIELD DIGITAL WITH TOMOSYNTHESIS AND CAD Tomosynthesis craniocaudal and mediolateral oblique views of both breasts were obtained using low-dose digital technique. Comparison is made to prior studies from May 18, 2018 (left) through May 20, 2021. This examination was reviewed with the aid of CAD. The breast parenchyma is heterogeneously dense. There is postoperative scarringand hemostasis clips at the axillary tail on the left. Benign calcifications are visualized. There are no developing masses, typically malignant calcifications or architectural distortion. There has been no significant interval change. MM/MM screening mammo BI w/CAD IMPRESSION: NO MAMMOGRAPHIC EVIDENCE OF MALIGNANCY. ROUTINE FOLLOW-UP IS RECOMMENDED IN ONE YEAR. RESULT CODE: 2 Benign Findings(s) DENSITY CODE: 3 (approximately 51-75% glandular) FOLLOW UP: 1YR The false-negative rate of mammography is approximately 10-percent. Management of a palpable abnormality must be based on clinical grounds. Patient was entered into a reminder system with a target due date for the next mammogram. Impression dictated by: May Sneed M.D.06/01/2022 8:36 AM Assessment and Plan - TNM Staging Staging: Left breast moderate differentiated (Grade 2, Alejandro score 7) pT2 (22mm), pN0, M0--ER +90%, [place]+ 95%, Her2 equivocal IHC/negative FISH. Oncotype Dx recurrence score 9 (3% risk distant recurrence)--07/2018 (1) Carcinoma of upper-outer quadrant of left breast in female, estrogen receptor positive Ms. Mejia presented to the outpatient clinic for a 3-month follow-up status postleft breast lumpectomy and sentinel biopsy 07/28/2018. -Low Oncotype DX, on adjuvant tamoxifen, no symptoms to suggest recurrence or DVT/PE or endometrial cancer, exam benign. She was concerned about low sex drive, mood swings and hot flashes. -Dr. Vivek Wells had a lengthy discussion re: alternatives and expectation and ways to cope with this. She agreed to continue Tamoxifen at last visit 04/2020 and discussed with her boyfriend re: decision moving forward. She saw Dr. Juarez one year ago--breast exams were benign. 04/2021: Overdue for mammogram and no f/u exams with Dr. Salas this year. She stopped Tamoxifen 08/2020 on her own due to side effects noted above. She agreed to resume lower dose Tamoxifen 10mg daily and f/u one month to assess tolerance and compliance with therapy. Consider adding Effexor if vasomotor symptoms and mood swings. She will have mammogram that was ordered today and agrees to arrange f/u with Dr. Salas. 06/2021: Mammogram without evidence of malignancy. Tolerating tamoxifen 10 mg daily better than prior visits. She declines Effexor for vasomotor symptoms andmood swings. Next follow-up 6 months or sooner as needed. 12/16/2021: She continues to do well on low dose tamoxifen with much more tolerable side effects (mood wings, decreased sex drive). No evidence of recurrence on exam today. She is due for her next mammogram in May, and will follow-up in 6 months, sooner as needed. She is in agreement with this planand has no questions. 06/16/2022: Patient has no new symptoms on low dose tamoxifen and we discussed lack of significant medication interactions between tamoxifen and [id number] allergy medicines. Her mammogram and exam showed no evidence of recurrence. Continue follow-up every 6 months or sooner if new symptoms arise. Low complexity 20- minute follow-up visit. (2) Encounter for monitoring tamoxifen therapy Tolerating well. On tamoxifen 10 mg daily. Anticipate 5-year course to be completed around October 2023--if reasonably well-tolerated may extend to 10 years of therapy. - Chemo Plan Chemo Plan (Dose, Rate, Freq): Adjuvant endocrine with Tamoxifen, 20mg, PO, daily, 10/12/18-stopped on her own 08/2020 for poor tolerance. --04/2021: we discussed resuming Tamoxifen 10mg po daily (declined AI with GnRH agonist). Plan at least 5-10 years total therapy. Goal of Treatment: Curative - Time with Patient Time Spent with Patient (Follow Up Visit): Less than 20 minutes - Low complexityvisit, discuss Tamoxifen tolerance at lower dose, mammography results from 05/2022 Coordination of Care & Counseling Time: Greater than 50% of time spent with patient was for coordination of care (as documented) and [id number] counseling of patient and/or family. Dictated By: Carmela Sewell MD DD/ [id number] Signed By: <Electronically signed by MD Carmela Sewell> 06/16/[address] [facility] Work Phone: Summary Purpose Family History No Family History Records Found Relationship Condition Age at Onset Recorded Date/T robbin Not Specified No pertinent family history Unknown Advance Directives No Advanced Directives Records Found Advance Directive Response Recorded Date/ Time Advance Directives No April 12:23pm Advance Directive Response Recorded Date/ Time Advance Directives No April 1:23pm Chief Complaint and Reason for Visit Chief Complaint Family Hx of cancer/ LT BREAST CA Reason for Visit Decreased sex drive Encounter for smoking cessation counseling Tobacco dependence [id number] Encounter for monitoring tamoxifen therapy Noncompliance with diagnostic testing Noncompliance with medication regimen Chief Complaint M25.572 Chief Complaint M25.572 Fracture Chief Complaint M25.572 S82.832A Fracture Chief Complaint Z98.89 Z87.81 Additional Source Comments INFORMATION SOURCE (unrecogn ized section and content) DATE CREATED AUTHOR 10/22/2018 [facility] DATE CREATED AUTHOR AUTHOR'S ORGANIZ ATION 11/07/2020 [facility] DATE CREATED AUTHOR AUTHOR'S ORGANIZ ATION 07/23/2023 [facility] DATE CREATED AUTHOR AUTHOR'S ORGANIZ ATION 03/11/2024 [facility] Care Teams (unrecognized sec tion and content) Team Status: Active Member Role Status Dates Rosalba Adorno APRN NP-C Primary Care Provider Acti ve Tomi Salas DO Referring Provider Active Carmela Sewell MD Attending Provider Active Team Status: Active Member Role Status Dates Rosalba Adorno APRN PODIATRY PROFESSOR-C Primary Care Provider Acti ve Team Status: Inactive Member Role Status Dates Rosalba Adorno APRN PODIATRY PROFESSOR-C Primary Care Provider Acti ve LOUANN Encarnacion Attending Provider Active Team Status: Inactive Member Role Status Dates Rosalba Adorno APRN PODIATRY PROFESSOR-C Primary Care Provider Acti ve Rodrigo Hernandez DO Attending Provider Active Team Status: Inactive Member Role Status Dates Rosalba Adorno APRN NP-C Primary Care Provider Acti ve Start: May 03, 2023 End: May 03, 2023 Rodrigo Hernandez DO Attending Provider Active St art: May 03, 2023 End: May 03, 2023 Goals (unrecognized section and content) Goals may be documented in a n alternate sectionGoals may be documented in an alternate sectionGoals may be documented in an alternate sectionNo InformationNo InformationNo InformationNo InformationNo InformationGoals may be documented in an alternate section REASON FOR VISIT (unrecogniz ed section and content) Left Ankle InjuryRecheck Lef t [id number] Visit Post Op Left AnkleRecheck Left AnkleRecheck Left Ankle FOR RECORDS PERTAINING TO PATIENTS WHO ARE OR HAVE BEEN ENROLLED IN A CHEMICAL DEPENDENCY/SUBSTANCEABUSE PROGRAM, SOME INFORMATION MAY BE OMITTED. This clinical summary was aggregated from multiple sources. Caution should be exercised in using it in the provision of clinical care. This summary normalizes information from multiple sources, and as a consequence, information in this document may materially change the coding, format and clinical context of patient data. In addition, data may be omitted in some cases. CLINICAL DECISIONS SHOULD BE BASED ON THE PRIMARY CLINICAL RECORDS. [facility] [employer] provides no warranty or guarantee of the accuracy or completeness of information in this document.
--- NOTE | 2025-01-03 10:41 | ED_ITS ---
HPI HPI - General Adult General Chief complaint: Nausea/Vomiting/Diarrhea Stated complaint: NAUSEA/VOMITING Time Seen by Provider: 01/03/25 10:31 Source: patient Mode of arrival: walk-in Limitations: no limitations History of Present Illness HPI narrative: This 49-year-old female states she has been ill for the last 1 week. For the first 3 days she was vomiting profusely and now just has dry heaves. She does not have an appetite and her oral intake is very little. She reports bilateral lower abdominal pain. 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 She denies alcohol or drug use. She states she has not had a menstrual period for at least a year at 1 time was told by her learning designer that she had an enlarged uterus. She denies vaginal bleeding. Related Data Previous Rx's ?Medication ?Instructions ?Recorded ondansetron HCl 4 mg tablet 4 mg PO Q6H PRN nausea and 01/03/25 vomiting #20 tabs pantoprazole 40 mg tablet,delayed 40 mg PO DAILY #30 t abs 01/03/25 release (Protonix) potassium chloride 20 mEq 20 meq PO DAILY #10 tabs tablet,extended release(part/cryst) Allergies Allergy/AdvReac Type Severity Reaction Status Date / Time morphine Allergy Mild Rash Verified 01/03/25 10:27 Opioid HPI Opioid Management Most Recent Opioid Data: Ur Phencyclidine Scrn, (NEGATIVE) Negative Today, 10:52 Review of Systems ROS Status of ROS 10 or more systems reviewed and unremark able except as noted in history and below PFSH PFS Medical History Hx of malignant neoplasm of breast ?Z85.3 - Personal history of malignant neoplasm of breast (ICD-10) Hx of neoplasm ?Z87.898 - Personal history of other specified conditions (ICD-10) Hx of fracture of fibula ?Z87.81 - Personal history of (healed) traumatic fracture (ICD-10) Social History Smoking status: Current every day smoker Little interest or pleasure in doing things: not at all Feeling down, depressed, or hopeless: not at all Exam Narrative Exam Narrative: Heart:Mildly ill-appearing with otherwise stable vital signs and no temperature elevation. Oral cavity is dry. The rest of the HEENT exam is normal to inspection. Neck is supple. Lung sounds are clear to auscultation bilaterally with good air entry. Has regular rate and rhythm. Abdomen soft with mild epigastric tenderness but without guarding or peritoneal signs. There is no distention, fluid wave or organomegaly. Lower extremities are warm and dry and there is no calf tenderness or pedal edema. There is no facial asymmetry. Speech and mentation are clear and intact and she moves all extremities actively. Constitutional Vital Signs, click to edit/add: Last Vital Signs Temp 98.7 F 01/03/25 10:23 Pulse 81 01/03/25 13:18 Resp 18 01/03/25 10:23 BP 137/93 H 01/03/25 10:23 Pulse Ox 98 01/03/25 10:23 O2 Del Method Room Air 01/03/25 10:23 Course Vital Signs Vital signs: Vital Signs Temperature 98.7 F 01/03/25 10:23 Pulse Rate 113 H 01/03/25 10:23 Respiratory Rate 18 01/03/25 10:23 Blood Pressure 137/93 H 01/03/25 10:23 Pulse Oximetry 98 01/03/25 10:23 Oxygen Delivery Method Room Air 01/03/25 10:23 Temperature 98.7 F 01/03/25 10:23 Pulse Rate 81 01/03/25 13:18 Respiratory Rate 18 01/03/25 10:23 Blood Pressure 137/93 H 01/03/25 10:23 Pulse Oximetry 98 01/03/25 10:23 Oxygen Delivery Method Room Air 01/03/25 10:23 Medical Decision Making [facility] Narrative Medical decision making narrative: Workup revealed low potassium and low magnesium likely on the basis of her profuse vomiting. She was given IV and oral potassium as well as IV magnesium sulfate and IV fluids receiving a total of 2 L of fluids. She was also treated with IV Zofran. Her urine toxicology is negative. Upon discharge she is placed on oral potassium supplementation for 10 days, Zofran for nausea and vomiting and is advised outpatient GI follow-up. She was also found to have microscopic hematuria without evidence of infection and was referred to outpatient urology follow-up for further workup. She is to return anytime for worsening symptoms. Lab Data Labs: Lab Results 01/03/25 01/03/25 Range/Units 10:52 10:57 WBC 6.9 (4.0-11.0) 10^3/uL RBC 3.27 L (4.20-5.40) 10^6/uL Hgb 12.0 (12.0-16.0) g/dL Hct 33.2 L (36.0-48.0) % MCV 101.5 H (81.0-99.0) fL MCH 36.7 H (26.7-34.0) pg MCHC 36.1 H (29.9-35.2) g/dL RDW 13.6 (11.0-15.0) % Plt Count 149 L (150-450) 10^3/uL MPV 9.8 (9.5-13.5) fL Seg Neuts % (Manual) 72.0 (43.0-75.0) Lymphocytes % (Manual) 6.0 L (20.5-60.0) % Monocytes % (Manual) 22.0 H (1.7-12.0) % Eosinophils % (Manual) 0.0 L (0.9-7.0) % Basophils % (Manual) 0.0 L (0.2-2.0) % Neutrophils # (Manual) 4.96 (1.4-6.5) 10^3/uL Lymphocytes # (Manual) 0.41 L (1.20-3.80) 10^3/uL Monocytes # (Manual) 1.51 H (0.30-0.80) 10^3/uL Eosinophils # (Manual) 0.00 (0.00-0.70) 10^3/uL Basophils # (Manual) 0.00 (0.00-0.10) 10^3/uL Sodium 132 L (136-145) mmol/L Potassium 2.7 L* (3.5-5.1) mmol/L Chloride 90 L (98-107) mmol/L Carbon Dioxide 32.7 H (21.0-32.0) mmol/L Anion Gap 12.0 BUN 12.0 (7.0-18.0) mg/dL Creatinine 0.68 (0.55-1.02) mg/dL Est GFR ( Amer) >60 (>=60 mL/min/1.73m^2) Est GFR (Non-Af Amer) >60 (>=60 mL/min/1.73m^2) BUN/Creatinine Ratio 17.6 Glucose 197 H (74-106) mg/dL Calcium 10.4 H (8.5-10.1) mg/dL Magnesium 1.2 L (1.8-2.4) mg/dL Total Bilirubin 0.9 (0.2-1.0) mg/dL Direct Bilirubin 0.4 H (0.0-0.2) mg/dL AST 118 H (15-37) U/L ALT 92 H (14-59) U/L Alkaline Phosphatase 148 H (46-116) U/L Total Protein 8.0 (6.4-8.2) g/dL Albumin 3.5 (3.4-5.0) g/dL Globulin 4.5 g/dL Albumin/Globulin Ratio 0.8 Lipase 27.0 (16.0-77.0) U/L Serum HCG, Qual Negative (NEGATIVE) Urine Color Dk. orange (YELLOW) Urine Clarity Clear (CLEAR) Urine pH 6.0 (5.0-9.0) Ur Specific [place] 1.025 (1.005-1.025) Urine Protein 100 A (NEG/TRACE) mg/dL Urine Glucose (UA) Negative (NEGATIVE) mg/dL Urine Ketones 40 A (NEGATIVE) mg/dL Urine Occult Blood Large A (NEGATIVE) Urine Nitrite Negative (NEGATIVE) Urine Bilirubin Large A (NEGATIVE) Urine Urobilinogen 1.0 (0.2-1.0) EU/dL Ur Leukocyte Esterase Moderate A (NEGATIVE) Urine RBC 10-20 A (0-2) #/HPF Urine WBC 2-5 A (NONE SEEN) #/HPF Ur Squamous Epith Cells Many A (NONE/RARE) #/LPF Urine Crystals None seen (None Seen) #/HPF Urine Bacteria Moderate A (NONE SEEN) #/HPF Urine Casts Seen A (NONE SEEN) #/LPF Hyaline Casts Few Urine Mucus Moderate A (NONE SEEN) Ur Culture Indicated? [place] [place] Opiates Screen Negative (NEGATIVE) Ur Buprenorphine Scrn Negative (NEGATIVE) Ur Oxycodone Screen Negative (NEGATIVE) Urine Methadone Screen Negative (NEGATIVE) Ur Barbiturates Screen Negative (NEGATIVE) U Tricyclic Antidepress Negative (NEGATIVE) Ur Phencyclidine Scrn Negative (NEGATIVE) Ur Amphetamines Screen Negative (NEGATIVE) U Methamphetamines Scrn Negative (NEGATIVE) U Benzodiazepines Scrn Negative (NEGATIVE) Urine Cocaine Screen Negative (NEGATIVE) U Cannabinoids Screen Negative (NEGATIVE) Discharge Plan Discharge Chief Complaint: Nausea/Vomiting/Diarrhea Clinical Impression: Acute hypokalemia Nausea & vomiting Qualifiers: Vomiting type: unspecified Qualified Code(s): R11.2 - Nausea with vomiting, unspecified Hematuria Qualifiers: Hematuria type: unspecified type Qualified Code(s): R31.9 - Hematuria, unspecified Patient Disposition: Home, Self-Care Time of Disposition Decision: 16:18 Mode of Transportation: Private Vehicle Prescriptions / Home Meds: New potassium chloride 20 mEq tablet,ER particles/crystals 20 meq PO DAILY Qty: 10 0RF ondansetron HCl 4 mg tablet 4 mg PO Q6H PRN (Reason: nausea and vomiting) Qty: 20 0RF pantoprazole [Protonix] 40 mg tablet,delayed release (DR/EC) 40 mg PO DAILY Qty: 30 0RF Print Language: Citizen Of [place] Instructions: Hypokalemia (ED), Acute Nausea and Vomiting (ED), Hematuria (ED) Additional Instructions: Follow-up with primary care physician of choice, assistant men's lacrosse coach and urologist for further workup. Return for worsening symptoms. Referrals: KATH KELLER [Physician, Gastroenterology] - 1 week Physician,Non-Staff, [Primary Care Provider] - 1 week Gerhard Chinchilla MD [Physician, Urology] - 1 week Discharge Date/Time: 01/03/25 16:33
[2025-01-03] MEDS: 0.9 % SODIUM CHLORIDE 1,000 ML 1000 ML IV (10:59)
[2025-01-03] MEDS: PANTOPRAZOLE SODIUM 40 MG VIAL IV (11:03)
[2025-01-03 11:05] LABS: Hematocrit 33.2 % (36.0-48.0); Hemoglobin 12.0 g/dL (12.0-16.0); Mean Corpuscular HGB Conc 36.1 g/dL (29.9-35.2); Mean Corpuscular Hemoglobin 36.7 pg (26.7-34.0); Mean Corpuscular Volume 101.5 fL (81.0-99.0); Platelet Count 149 10^3/uL (150-450); Red Blood Count 3.27 10^6/uL (4.20-5.40); White Blood Count 6.9 10^3/uL (4.0-11.0)
[2025-01-03 11:06] LABS: Glucose Urine UA NEGATIVE (NEGATIVE)
[2025-01-03 11:10] LABS: Urine Culture Indicated YES-FRMC
[2025-01-03 11:18] LABS: Cast Seen? SEEN #/LPF (NONE SEEN); Crystals Seen? None Seen #/HPF (None Seen)
[2025-01-03 11:25] LABS: Basophils Abs Manual 0.00 10^3/uL (0.00-0.10); Basophils Percent Manual 0.0 % (0.2-2.0); Eosinophils Absolute Manual 0.00 10^3/uL (0.00-0.70); Eosinophils Percent Manual 0.0 % (0.9-7.0); Lymphocytes Absolute Manual 0.41 10^3/uL (1.20-3.80); Lymphocytes Percent Manual 6.0 % (20.5-60.0); Monocytes Absolute Manual 1.51 10^3/uL (0.30-0.80); Monocytes Percent Manual 22.0 % (1.7-12.0); Segmented Neut Absolute Manual 4.96 10^3/uL (1.4-6.5); Segmented Neutrophils % Manual 72.0 (43.0-75.0)
[2025-01-03 11:31] LABS: Alanine Aminotransferase 92 U/L (14-59); Albumin Globulin Ratio 0.8; Albumin Level 3.5 g/dL (3.4-5.0); Alkaline Phosphatase 148 U/L (46-116); Anion Gap 12.0; Aspartate Amino Transferase 118 U/L (15-37); Blood Urea Nitrogen 12.0 mg/dL (7.0-18.0); Calcium 10.4 mg/dL (8.5-10.1); Carbon Dioxide 32.7 mmol/L (21.0-32.0); Chloride 90 mmol/L (98-107); Estimated GFR (African America >60 (>=60 mL/min/1.73m^2); Estimated GFR (Non-African Ame >60 (>=60 mL/min/1.73m^2); Globulin 4.5 g/dL; Glucose 197 mg/dL (74-106); Lipase 27.0 U/L (16.0-77.0); Magnesium 1.2 mg/dL (1.8-2.4); Sodium 132 mmol/L (136-145); Total Protein 8.0 g/dL (6.4-8.2)
[2025-01-03 11:33] LABS: Potassium 2.7 mmol/L (3.5-5.1)
--- NOTE | 2025-01-03 12:05 | CT_ITS ---
The [address] [address] Patient Name: VALENTINE LEE MRN: [id number] date: 1975 Sex: F Assigned Patient Location: ER Current Patient Location: ER Accession/Order Number: [id number] Exam Date: 01/03/2025 12:08 Report Date: 01/03/2025 12:12 At the request of: JHON VACA MD Procedure: CT abdomen pelvis wo con CT ABDOMEN AND PELVIS WITHOUT INTRAVENOUS CONTRAST: CLINICAL HISTORY: Acute lower abdominal pain for one week. Nausea and vomiting for 3 days COMPARISON: None TECHNIQUE: Spiral images were obtained through the abdomen and pelvis without intravenous contrast. This CT exam was performed using one or more following dose reduction techniques: Automated exposure control, adjustment of the mA and/or kV according to patient size, or use of iterative reconstruction technique. FINDINGS: Lung Bases: [No acute process.] Organs:Hepatic steatosis. Gallbladder spleen pancreas and adrenal glands all appear unremarkable. Kidneys demonstrate no stone or hydronephrosis. Abdominal aorta appears normal in caliber.[ GI: Stomach is grossly unremarkable. Small bowel appears nondilated. Appendix is normal. No acute colonic abnormality.[ Pelvis:[Urinary bladder and uterus appear unremarkable.] Peritoneum/Retroperitoneum:Mild haziness involving the mesentery. No free air or free fluid or lymphadenopathy.[Partially calcified right upper quadrant lymph nodes. Abd wall/Bones:Abdominal wall demonstrates no acute findings. Osseous structures demonstrate degenerative change.[ CT/CT abdomen pelvis wo con IMPRESSION: No acute process. Haziness involving the mesentery. Repeat CT in 6 months is suggested to confirm stability. Hepatic steatosis. Impression dictated by: Mack Estes Jr., D.O. 01/03/2025 12:12 PM Dictation Location: [place] [address] Electronically authenticated by: [id number] Y Date: 01/03/2025 12:12
[2025-01-03] MEDS: POTASSIUM CHLORIDE 20 MEQ in 0.9 % SODIUM CHLORIDE 250 ML 130 MEQ IV (12:18)
--- NOTE | 2025-01-03 12:37 | PC.NURSE ---
pt started potassium drip - pt placed on heart monitor at this time
[2025-01-03 13:18] VITALS: PULSE 81
[2025-01-03 13:53] LABS: Cannabinoid Screen Urine NEGATIVE (NEGATIVE); Methamphetamines Screen Urine NEGATIVE (NEGATIVE); Tricyclic Antidepressant Urine NEGATIVE (NEGATIVE)
[2025-01-03] MEDS: MAGNESIUM SULFATE IN WATER 4 GM/100 ML PIGGYBACK IV (14:14)
[2025-01-03] MEDS: POTASSIUM BICARBONATE/CIT 25 MEQ TABLET EFF 50 MEQ PO (15:00)
--- NOTE | 2025-01-03 15:00 | PC.NURSE ---
pt able to eat soft pretzel and drink some water at this time -- denies any nausea or pain
== END 2025-01-03 16:33 | disposition home or self-care (01) ==
PROVIDERS: Emergency Provider Emergency Medicine
DX: E87.6 Hypokalemia (principal); R11.2 Nausea with vomiting, unspecified; R31.29 Other microscopic hematuria; Z90.721 Acquired absence of ovaries, unilateral; Z90.79 Acquired absence of other genital organ(s); F17.200 Nicotine dependence, unspecified, uncomplicated
CPT/HCPCS: 36415; 74176; 80048; 80076; 80307; 81001; 83690; 83735; 84703; 85007; 85027; 87086; 96361; 96365; 96366; 96367; 96375; 99285; J2405; J3475; J3480

== ENCOUNTER 2025-03-21 09:42 | Outpatient (OUT) | payer OTHER, SELFPAY ==
--- OUTSIDE RECORDS SUMMARY | 2025-03-21 09:47 | XMS_ITS | CCD ---
Author Organization [facility] Care Team Providers Care Opal Polisher Name Role Phone MORGAN, RAJENDER K Attending Unavailable Rosalba Adorno Primary Care Unavailable MORGAN, RAJENDER K Attending [...] Care Unavailable MORGAN, RAJENDER K Attending Unavailable Brittney Adornofer K Primary Care Unavailable Wells, Vivek Attending Unavailable BretterBrittneyRosalba K Primary Care Unavailable Wells, Vivek Attending Unavailable Hanapoleoner, Rosalba K Primary Care Unavailable Wells, Vivek Attending Unavailable Brittney Adornofer K Primary Care Unavailable MORGAN, RAJENDER K [...] Referring Provider MD Carmela Sewell Attending Provider BILL Adorno Primary Care Provider [phone] DO Tomi Salas Referring Provider [phone] MD Carmela Sewell Attending Provider BILL Adorno Primary Care Provider LOUANN Cuevas Attending Provider Rosalba Cuevas Unavailable DO Rodrigo Hernandez Attending Provider [phone] Rodrigo Hernandez Unavailable BILL Adorno Primary Care Provider DO Rodrigo Hernandez Attending Provider MARJORIE WOLF Attending Unavailable NO PCP, NO PCP Primary Care Unavailable MARJORIE WOLF Attending Unavailable MARJORIE WOLF Referring Unavailable NO PCP, NO PCP Primary Care Unavailable Rosalba Adorno APRN Primary Care Provider Sharee MD, Arnold Attending Provider Rosalba Adorno Primary Care Unavailable Arnold Tolliver Attending Unavailable Arnold Tolliver Admitting Unavailable Sudhir Gonzalez Primary Care Physician Julia Ramirez Attending Unavailable Allergies Allergy Classification Reported Allergen(s) Allergy Type Date of Onset Reaction(s) Facility Opioid Agonists (1 source) Morphine Drug Allergy 1 [facility] Repository (14 sources) Morphine; Translations: [morphine] Drug Allergy 2 Persistent erythema (finding) [facility] (7 sources) band aid adhesive Allergy to substance 2 Rash [facility] Medications Current Medications Medication Drug Class(es) Dates [...] be used post op Mar, Active rOPINIRole 0.25 mg oral tablet (8 sources) Nonergot Dopamine Agonist Start: 01-16-2025 ropinirole 0.25 mg Tab 0.25 mg = 1 tab(s), Refills(s) 0 Start Date: 01/16/25 Status: Ordered Repeat number: 1 Start: 07-21-2018 take 1 tablet by tiffanie th once daily at bedtime as needed for pain traMADol hydrochloride 50 mg oral tablet (5 sources) Opioid Agonist Start: 03-18-2023 take 1 tablet by mouth every six hours traMADol HCl 50 MG 1 tablet as needed Orally every 6 hours for 5 days Mar, Active Completed/Discontinued Medications Medication Drug Class(es) Dates Sig (Normalized) Sig (Original) calcium carbonate 1500 mg oral tablet (7 sources) Start: 04-25-2019 End: 04-28-2021 take 1 tablet by mouth once daily Calcium Carbonate (Calcium 600) 600 mg calcium (1,500 mg) Tablet Discontinued 1 TAB PO Daily April 25, 2019 1:00am April 28, 2021 3:27pm cholecalciferol 0.025 mg oral capsule (7 sources) Vitamin D Start: 04-25-2019 End: 04-28-2021 take 1 capsule by mouth once daily Cholecalciferol (Vitamin D3) (Vitamin D3) 1,000 unit Capsule Discontinued 1000 UNIT PO Daily April 25, 2019 1:00am April 28, 2021 3:27pm Hyaluronic Ks-Lqyjxgtow-Dgnf (Radiaplexrx) Gel (7 sources) Start: 09-13-2018 End: 11-08-2018 Hyaluronic Ie-Veyqsyvin-Ehhi (Radiaplexrx) Gel Discontinued 1 APPLIC TOPICAL Three times daily September 13, 2018 12:00am November 08, 2018 8:32am Start: 09-13-2018 End: 11-08-2018 Hyaluronic Xd-Buybmoqqm-Hlcy (Radiaplexrx) Gel Discontinued 1 APPLIC TOPICAL Three times daily September 12, 2018 11:00pm November 08, 2018 7:32am ibuprofen 800 mg oral tablet (19 sources) Nonsteroidal Anti-inflammatory Drug Start: 07-28-2018 End: 08-04-2018 Ibuprofen 800 mg tablet Discontinued 800 MG PO EVERY 8-12 HOURS as needed for pain 30 July 28, 2018 1:00am August 03, 2018 1:00am August 04, 2018 1:02am Start: 07-21-2018 take 4 tablets by mo uth every four to six hours as needed for pain Start: 07-21-2018 take 800 mg by mouth every four to six hours Ibuprofen Active 800 MG PO EVERY 4-6 HOURS July 21, 2018 12:00am take 1 tablet by tiffanie th three times daily at mealtime as needed Ibuprofen 400 MG 1 tablet with food or milk as needed Orally Three times a day Active mometasone furoate 0.001 mg/mg topical ointment (7 sources) Corticosteroid Start: 09-26-2018 End: 11-08-2018 Mometasone 0.1 % Ointment Discontinued 1 APPLIC TOPICAL Twice daily September 26, 2018 12:00am November 08, 2018 8:54am 09/26/18 disp. 1 tube refill 1 pantoprazole 40 mg delayed release oral tablet (1 source) Proton Pump Inhibitor Start: 01-16-[address] Tab 30 EA, 0 Refill(s), TAKE 1 TABLET BY MOUTH DAILY, Refills(s) 0 Start Date: 01/16/25 Status: Ordered Repeat number: 1 tamoxifen 10 mg oral tablet (20 sources) Estrogen Agonist/Antagonist Start: 04-29-2021 End: 04-06-2023 take 1 tablet by mouth once daily Tamoxifen 10 mg Tablet Discontinued 10 MG PO Daily 90 90 November 30, 2021 1:21pm April 06, 2023 8:26am Start: 10-12-2018 End: 04-28-2021 take 1 tablet by mouth once daily Tamoxifen 20 mg Tablet Discontinued 20 MG PO Daily 90 90 October 29, 2019 3:13pm April 28, 2021 3:27pm Tamoxifen Citrat e Active Problems Problem Classification Problem Date Documented Date Episodic/Chronic Administrative/social admission (15 sources) Patient encounter status; Translations: [Tobacco abuse counseling] 10-12-2018 Episodic Cancer of breast (9 sources) Carcinoma of breast - upper, outer quadrant; Translations: [Malignant neoplasm of upper-outer quadrant of left female breast] 04-30-2021 Chronic Cancer of breast (1 source) History of malignant neoplasm of breast 01-16-2025 Episodic Fluid and electrolyte disorders (1 source) Hypokalemia; Translations: [Hypokalemia] Onset: 03-04-2024 Episodic Fracture of lower limb (2 sources) Other fracture of upper and lower end of left fibula, initial encounter for closed fracture; Translations: [Other fracture of upper and lower end of left fibula, subsequent encounter for closed fracture with routine healing] Episodic Genitourinary symptoms and ill-defined conditions (2 sources) Microscopic hematuria; Translations: [Asymptomatic microscopic hematuria] Onset: 01-16-2025 Episodic Immunizations and screening for infectious disease (4 sources) Encounter for immunization; Translations: [ENCOUNTER FOR IMMUNIZATION] Onset: 10-13-2020 Episodic Nonmalignant breast conditions (7 sources) Breast lump; Translations: [Unspecified lump in the left breast, unspecified quadrant] 04-25-2019 Episodic Other aftercare (2 sources) Encounter for therapeutic drug level monitoring; Translations: [Encounter for therapeutic drug monitoring] 05-31-2022 Episodic Other aftercare (1 source) Long-term current use of tamoxifen; Translations: [Encounter for therapeutic drug level monitoring] 04-30-2021 Episodic Other injuries and conditions due to external causes (3 sources) Personal history of (healed) traumatic fracture Episodic Other non-traumatic joint disorders (2 sources) Pain in left ankle and joints of left foot Episodic Other nutritional; endocrine; and metabolic disorders (1 source) Hypomagnesemia; Translations: [Hypomagnesemia] Onset: 03-04-2024 Chronic Residual codes; unclassified (7 sources) Reduced libido; Translations: [Decreased libido] 04-24-2020 Episodic Residual codes; unclassified (7 sources) Noncompliance with medication regimen; Translations: [Patient's other noncompliance with medication regimen] 04-30-2021 Episodic Residual codes; unclassified (9 sources) Noncompliance with diagnostic testing ; Translations: [Noncompliance with diagnostic testing] 04-30-2021 Episodic Residual codes; unclassified (2 sources) Decreased libido; Translations: [Decreased libido] 05-31-2022 Episodic Residual codes; unclassified (2 sources) Patient's other noncompliance with medication regimen; Translations: [Personal history of noncompliance with medical treatment, presenting hazards to health] 05-31-2022 Episodic Residual codes; unclassified (3 sources) Other specified postprocedural states Episodic Residual codes; unclassified (1 source) Altered mental status, unspecified; Translations: [Altered mental status, unspecified] Onset: 03-04-2024 Episodic Residual codes; unclassified (1 source) Hallucinations Onset: 03-04-2024 Episodic Residual codes; unclassified (2 sources) Tobacco user; Translations: [Tobacco use] Onset: 01-16-2025 Episodic Sprains and strains (1 source) Sprain of tibiofibular ligament of left ankle, initial encounter Episodic Substance-related disorders (15 sources) Tobacco dependence syndrome; Translations: [Nicotine dependence, unspecified, uncomplicated] 01-16-2019 Chronic Unclassified (1 source) EMS Onset: 03-04-2024 Unclassified (1 source) Asymptomatic microscopic hematuria 01-16-2025 Results Test Name Value Interpretation Reference Range Facility Provider Letteron 03-18-2025 Provider Letter Provider Letter March 18, 20[address] [place] [phone] : 1975 Dear Eneida, We have been trying to reach you with no success. It is important that you return our call regarding scheduling a 3 month follow up appointment with Julia Ramirez PA-C upon receiving this letter. We were unable to leave a voice mail as a mailbox was not set up on your phone. Thank you for your prompt attention to this matter. Sincerely, [facility] [address] [facility] [address] [place] [address] [facility] Reminderson 03-18-2025 Reminders Reminders From: Katalina Oshea To: [facility] - Administrative; Sent: 01/16/2025 09:48:19 EDT Show up: 02/15/2025 09:48:00 EDT Subject: 3 month F/U Due Date/Time: 04/17/2025 09:48:00 EST Reminder/Recall Patient needs scheduled for a 3 month F/U with UA with LT in [place], due back early April LVM to call back to schedule appointment Unable to leave , mailing damari [facility] Provider Letteron 03-07-2025 Provider Letter Provider Letter March 07, 2025 [address]IA [address] [place] [phone] : 1975 Dear Eneida, We have been trying to reach you with no success. It is important that you return our call regarding the scheduling of a 3 month follow up appointment with Julia Ramirez PA-C upon receiving this letter. We were unable to leave a message as your voice mail was not set up. Thank you for your prompt attention to this matter. Sincerely, [facility] [address] [facility] [address] [place] [address] [facility] Urology Office/Clinic Noteon 01-16-2025 Urology Office/Clinic Note Urology Office/Clinic Note Chief Complaint new pt here for henaturia HPI Staff 49 year old female new patient refer for hematuria Pt was seen at [facility] ER X2 and was told that she had blood in her urine, she was dehydrated and was given fluid Pt denies pain/burning denies visible blood denies flank pain BBSQ: 14 History of Present Illness I have reviewed and verified the staff HPI to be accurate for this encounter. Review of Systems PHQ Score Initial Depression Screen Score: 0 SCORE no fever, chills, malaise, myalgia. no abdominal pain, nausea, vomiting. Physical Exam Vitals & Measurements HR: 70(Peripheral) RR: 16 BP: 128/60 HT: 62 in HT: 158 cm WT: 58.0 kg WT: 127.868 lb BMI: 23.23 General: Well developed, well nourished, in no acute distress. 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 Asymptomatic microscopic hematuria (R31.21: Asymptomatic microscopic hematuria) [facility] ED 01/03/25 - c/o N/V. Workup revealed dehydration, hypokalemia, low magnesium and microscopic hematuria w/o infection. 01/03/25 - Micro UA RBC 10-20, UCX > 100K mixed bacterial skin contaminants, Cr 0.68, GFR > 60 CTAP w/o con 01/03/25 - neg for stones or hydro UA today w/ trace leuks only. Neg for blood. Smoker x 20 years. No occupational exposures. Personal hx of breast CA. Reviewed micro UA & UCX from ER visit w/ patient. Explained this urine sample was contaminated so cannot count as true microhematuria. Reviewed UA today, which is negative for blood. She denies gross hematuria. Discussed potential etiologies and implications of hematuria with patient. These include: trauma, Tumor, infection/inflammation , stones, period/menses (pseudohematuria), obstructive uropathy (urolithiasis, stricture, etc), nephritis, Tuberculosis, thrombosis, and hematologic. Urologic malignancy is more common in patients with gross hematuria (23%) than in patient with microscopic hematuria (5%). In adults with microscopic hematuria, the initial evaluation fails to identify an etiology in 43% of patients. Approximately 1-3% of these patients eventually develop a urologic malignancy. In adults with gross hematuria, the initial evaluation fails to identify an etiology in 8% of patients. Approximately, 18% of these patients eventually develop a urologic malignancy. Given no microhematuria noted on UA today and prior micro UA w/ contamination, recommend repeating UA in 3-6 months. Briefly explained hematuria work-up today if microhematuria is confirmed at any point, which would include CTU (given smoking hx), cystoscopy & cytology. She verbalizes understanding and is agreeable to plan. All questions answered. -Pt to notify our office for gross hematuria -Smoking cessation encouraged -F/U in 3 months w/ UA, or sooner if needed 2. Tobacco use (Z72.0: Tobacco use) Increased risk of urothelial CA -See #1 Orders: Urnls Dip Stick Auto w/o Microscopy POC [id number] Follow-up With When Contact Information Julia Ramirez PA-C, BRIGIDO Additional Instructions: F/U in 3 months w/ UA Patient Education Hematuria, Adult Problem List/Past Medical History Ongoing Asymptomatic microscopic hematuria History of breast cancer Microscopic hematuria Historical No qualifying data Procedure/Surgical History Breast surgery. Medications Pantoprazole [address] Tab ropinirole 0.25 mg Tab, 0.25 mg= 1 tab(s) Allergies morphine (Persistent redness of skin) Social History Alcohol Current. Liquor. 3-5 times per week., 01/16/2025 Substance Abuse Current., 01/16/2025 Tobacco 10 or more cigarettes (1/2 pack or more)/day in last 30 days Tobacco Use:. Never Smokeless Tobacco Use:., 01/16/2025 Immunizations Vaccine Date Status SARS-CoV-2 (COVID-19) mRNA BNT-162b2 vax 10/13/2020 Recorded SARS-CoV-2 (COVID-19) mRNA BNT-162b2 vax 09/22/2020 Recorded Lab Results Ambulatory Point of Care Results Bilirubin Urine Dipstick: Negative (01/16/25 09:03:00) Blood Urine Dipstick: Negative (01/16/25 09:03:00) Glucose Urine Dipstick: Negative (01/16/25 09:03:00) Ketones Urine Dipstick: Negative (01/16/25 09:03:00) Leukocytes Urine Dipstick: Trace (01/16/25 09:03:00) Nitrite Urine Dipstick: Negative (01/16/25 09:03:00) Protein Urine Dipstick: Negative (01/16/25 09:03:00) Specific [place] Urine Dipstick: 1.015 (01/16/25 09:03:00) Urine Appearance Urine Dipstick: Cloudy (01/16/25 09:03:00) Urine Color Urine Dipstick: Light yellow (01/16/25 09:03:00) Urobilinogen Urine Dipstick: Normal 0.2-1 EU/dl (01/16/25 09:03:00) pH Urine Dipstick: 6 (01/16/25 09:03:00) Normal [facility] Comment on above: Result Comment: Elec tronically Signed By: Ashley FORTUNE, Julia\.br\Date and Time Signed: 01/16/25 09:50 EDT Urine Cultureon 01-03-2025 Bacteria identified Cx Nom (U) >100,000 colonies/ml mixed bacterial skin contaminants 2 Days PERFORMED BY: [place] [address] PATHOLOGIST VETERINARY PARASITOLOGIST LANA GONZALEZ M.D. Normal [facility] Comment on above: Performed By: #### C UU #### [address] BLOOD CULTUREon 03-04-2024 Bacteria identified Aer cx Nom (Bld) SPECIMEN NOTES SUBOPTIMAL VOLUME OF BLOOD COLLECTED, RESULTS MAY BE AFFECTED. CULTURE RESULTS NO GROWTH 5 DAYS Normal [facility] Comment on above: Performed By: #### C LIAM, CBCA, 13272-8 #### [facility] ([id number]) [address] [place] [address] [place] [address] Bacteria identified Aer cx Nom (Bld) CULTURE RESULTS NO GROWTH 5 DAYS Normal [facility] CBC AND AUTO DIFFon 03-04-20 24 ABSOLUTE BASOPHIL 0.0 X10E9/L Normal 0.0-0.2 [facility] Comment on above: Performed By: #### C LIAM, CBCA, 53408-5 #### [facility] ([id number]) [address] [place] [address] ABSOLUTE NEUTROPHIL 6.6 X10E9/L Normal 1.5-6.6 [facility] Comment on above: Performed By: #### C LIAM, CBCA, 49254-7 #### [facility] ([id number]) [address] [place] [address]229 Basophils/100 WBC (Bld) 0.6 % Normal [facility] Comment on above: Performed By: #### C LIAM, CBCA, 53761-4 #### [facility] ([id number]) [address] [place] [address] Eosinophils (Bld) [#/Vol] 0.1 10*3/uL Normal 0.0-0.4 [facility] Comment on above: Performed By: #### C LIAM, CBCA, 72663-2 #### [facility] ([id number]) [address] [place] [address]26 Eosinophils/100 WBC (Bld) 1.4 % Normal [facility] Comment on above: Performed By: #### C LIAM, CBCA, 51173-2 #### [facility] ([id number]) [address] [place] [address]487 Erythrocyte distribution width (RBC) [Ratio] 20.0 % High 11.5-15.0 [facility] Comment on above: Performed By: #### C LIAM CBCA, 34818-3 #### [facility] ([id number]) [address] [place] [address]8847 Hematocrit (Bld) [Volume fraction] 29.1 % Low 35-47 [facility] Comment on above: Performed By: #### C LIAM CBCKarley, 13103-9 #### [facility] ([id number]) [address] [place] [address] Hemoglobin (Bld) [Mass/Vol] 9.7 g/dL Low 11.7-15.5 [facility] Comment on above: Performed By: #### C LIAM CBCKarley, 41984-9 #### [facility] ([id number]) [address] [place] [address]40 Lymphocytes (Bld) [#/Vol] 0.7 10*3/uL Low 1.0-3.5 [facility] Comment on above: Performed By: #### C LIAM CBCA, 01989-2 #### [facility] ([id number]) [address] [place] [address]447 Lymphocytes/100 WBC (Bld) 8.3 % Normal [facility] Comment on above: Performed By: #### C LIAM CBCA, 06685-4 #### [facility] ([id number]) [address] [place] [address]2419 MCH (RBC) [Entitic mass] 32.7 pg Normal 27-34 [facility] Comment on above: Performed By: #### C LIAM CBCA, 97175-2 #### [facility] ([id number]) [address] [place] [address]169 MCHC (RBC) [Mass/Vol] 33.3 g/dL Normal 32-36 [facility] Comment on above: Performed By: #### C LIAM CBCA, 06038-1 #### [facility] ([id number]) [address] [place] [address] 12814 MCV (RBC) [Entitic vol] 98 fL Normal 80-100 [facility] Comment on above: Performed By: #### C LIAM CBCA, 09000-9 #### [facility] ([id number]) [address] [place] [address]3862 Monocytes (Bld) [#/Vol] 0.9 10*3/uL Normal 0-0.9 [facility] Comment on above: Performed By: #### C LIAM CBCA, 16304-3 #### [facility] ([id number]) [address] [place] [address] 29751 Monocytes/100 WBC (Bld) 10.9 % Normal [facility] Comment on above: Performed By: #### C LIAM CBCA, 61730-6 #### [facility] ([id number]) [address] [place] [address] 40304 Neutrophils/100 WBC (Bld) 78.8 % Normal [facility] Comment on above: Performed By: #### C LIAM CBCA, 97505-8 #### [facility] ([id number]) [address] [place] [address] 69224 Platelet mean volume (Bld) [Entitic vol] 8.7 fL Normal 7-12 [facility] Comment on above: Performed By: #### C LIAM CBCA, 64823-2 #### [facility] ([id number]) [address] [place] [address] 97196 Platelets (Bld) [#/Vol] 303 10*3/uL Normal 150-450 [facility] Comment on above: Performed By: #### C BENJAMIN WHEELER, 02677-4 #### [facility] ([id number]) [address] [place] [address] 62762 RBC COUNT 2.96 X10E12/L Low 3.80-5.20 [facility] Comment on above: Performed By: #### C BENJAMIN WHEELER, 86921-4 #### [facility] ([id number]) [address] [place] [address] 70749 WBC (Bld) [#/Vol] 8.4 10*3/uL Normal 4.0-11.0 [facility] Comment on above: Performed By: #### C BENJAMIN WHEELER, 72582-1 #### [facility] ([id number]) [address] [place] [address]5530 COMPREHENSIVE METABOLIC PANE Clarence 03-04-2024 Albumin [Mass/Vol] 3.0 g/dL Low 3.2-5.3 [facility] Comment on above: Performed By: #### C BENJAMIN WHEELER, 20333-4 #### [facility] ([id number]) [address] [place] [address] 47853 ALP [Catalytic activity/Vol] 109 U/L Normal 39-130 [facility] Comment on above: Performed By: #### C BENJAMIN WHEELER, 14936-9 #### [facility] ([id number]) [address] [place] [address]449 ALT [Catalytic activity/Vol] 33 U/L High 0-31 [facility] Comment on above: Performed By: #### C BENJAMIN WHEELER, 53538-1 #### [facility] ([id number]) [address] [place] [address]1906 Anion gap [Moles/Vol] 9 mmol/L Normal 5-15 [facility] Comment on above: Performed By: #### C JULIO WHEELERA, 79468-8 #### [facility] ([id number]) [address] [place] [address] [place] [address] AST [Catalytic activity/Vol] 77 U/L High 0-41 [facility] Comment on above: Performed By: #### C LIAM CBCA, 98066-6 #### [facility] ([id number]) [address] [place] [address] [place] [address] Bilirubin [Mass/Vol] 0.2 mg/dL Low 0.3-1.2 [facility] Comment on above: Performed By: #### C LIAM CBCA, 45777-8 #### [facility] ([id number]) [address] [place] [address]21 Calcium [Mass/Vol] 7.4 mg/dL Low 8.5-10.5 [facility] Comment on above: Performed By: #### C LIAM CBCA, 14460-9 #### [facility] ([id number]) [address] [place] [address]6313 Chloride [Moles/Vol] 98 mmol/L Normal 98-109 [facility] Comment on above: Performed By: #### C BENJAMIN WHEELER, 43474-0 #### [facility] ([id number]) [address] [place] [address] [place] [address] CO2 [Moles/Vol] 27 mmol/L Normal 22-32 [facility] Comment on above: Performed By: #### C LIAM CBCA, 11478-0 #### [facility] ([id number]) [address] [place] [address] [place] [address] Creatinine [Mass/Vol] 0.48 mg/dL Normal 0.40-1.00 [facility] Comment on above: Result Comment: METH OD TRACEABLE TO IDMS STANDARD Performed By: #### C LIAM CBCKarley 99466-0 #### [facility] ([id number]) [address] [place] [address]859 eGFR (CKD-EPI) NON-RACE DEPENDENT >90 Normal >59 [facility] Comment on above: Result Comment: Reported eGFR is based on the CKD-EPI 2021 equation that does not use a race coefficient. Performed By: #### C BENJAMIN WHEELER, 11468-1 #### [facility] ([id number]) [address] [place] [address] 32437 Glucose [Mass/Vol] 130 mg/dL High 65-99 [facility] Comment on above: Performed By: #### C BENJAMIN WHEELER, 65062-4 #### [facility] ([id number]) [address] [place] [address]682 Potassium [Moles/Vol] 2.9 mmol/L Low 3.5-5.0 [facility] Comment on above: Performed By: #### C BENJAMIN WHEELER, 06501-3 #### [facility] ([id number]) [address] [place] [address] Protein [Mass/Vol] 6.3 g/dL Normal 6.0-8.0 [facility] Comment on above: Performed By: #### C BENJAMIN WHEELER, 03986-2 #### [facility] ([id number]) [address] [place] [address] 48158 Sodium [Moles/Vol] 134 mmol/L Normal 134-146 [facility] Comment on above: Performed By: #### C BENJAMIN WHEELER, 39271-5 #### [facility] ([id number]) [address] [place] [address] Urea nitrogen [Mass/Vol] 5 mg/dL Normal 5-23 [facility] Comment on above: Performed By: #### C BENJAMIN WHEELER, 80783-1 #### [facility] ([id number]) [address] [place] [address]RA[address] CT BRAIN WO [...] Jimmy Weiner on 03/04/2024 5:54 PM Normal [facility] HCG ( test) Ql (U)o n 03-04-2024 Beta HCG ( test) Ql (U) Negative Normal NEG [facility] Comment on above: Performed By: #### 2 106-3 #### [facility] ([id number]) [address] [place] [address] 83869 Lactate (P alexander) [Moles/Vol]o n 03-04-2024 LACTATE W/REFLEX 2.1 mmol/L High 0.4-2.0 [facility] Comment on above: Performed By: #### 3 2133-1 #### [facility] ([id number]) [address] [place] [address] MAGNESIUMon 03-04-2024 Magnesium [Mass/Vol] 1.3 mg/dL Low 1.8-2.6 [facility] Comment on above: Performed By: #### 8 9579-7, 64323-4 #### [facility] ([id number]) [address] [place] [address], [place] [address] Troponin I.cardiac High sens itivity method [Mass/Vol]on 03-04-2024 1 HOUR TROP I, HIGH SENSITIVITY 8 ng/L Normal <16 [facility] Comment on above: Performed By: #### 8 9579-7, 31409-2 #### [facility] ([id number]) [address] [place] [address], [place] [address] TROPONIN I, HIGH SENSITIVITY 5 ng/L Normal <16 [facility] Comment on above: Performed By: #### C LIAM, CBCA, 14540-8 #### [facility] ([id number]) [address] [place] [address], [place] [address] URINE CULTUREon 03-04-2024 Bacteria identified Cx Nom (U) CULTURE RESULTS NO GROWTH AT <1000 CFU/mL Normal [facility] Comment on above: Performed By: #### C LIAM, CBCA, 91035-9 #### [facility] ([id number]) [address] [place] [address], [place] [address] URN MACROSCOPIC NURon 2023 BILIRUBIN RAYSA Negative Normal NEG [facility] Comment on above: Performed By: #### N UM #### [facility] ([id number]) [address] [place] [address], [place] [address] BLOOD/HGB RAYSA Trace Abnormal NEG [facility] Comment on above: Performed By: #### N UM #### [facility] ([id number]) [address] [place] [address], [place] [address] GLUCOSE RAYSA Negative Normal NEG [facility] Comment on above: Performed By: #### N UM #### [facility] ([id number]) [address] [place] [address], [place] [address] KETONES RAYSA Negative Normal NEG [facility] Comment on above: Performed By: #### N UM #### [facility] ([id number]) [address] [place] [address] LEUKOCYTE ESTERASE RAYSA Negative Normal NEG [facility] Comment on above: Performed By: #### N UM #### [facility] ([id number]) [address] [place] [address] NITRITE RAYSA Negative Normal NEG [facility] Comment on above: Performed By: #### N UM #### [facility] ([id number]) [address] [place] [address] PH RAYSA 7.0 Normal 5.0-8.5 [facility] Comment on above: Performed By: #### N UM #### [facility] ([id number]) [address] [place] [address] PROTEIN RAYSA Negative Normal NEG [facility] Comment on above: Performed By: #### N UM #### [facility] ([id number]) [address] [place] [address] SPECIFIC GRAVITY RAYSA 1.010 Normal 1.003-1.035 [facility] Comment on above: Performed By: #### N UM #### [facility] ([id number]) [address] [place] [address] UROBILINOGEN RAYSA 0.2 eu/dL Normal <1.1 [facility] Comment on above: Performed By: #### N UM #### [facility] ([id number]) [address] [place] [address]79 XR ankle LT min 3V*on 2022 XR ankle LT min 3V* [facility] pushd Other XR ankle LT min 3V* [facility] pushd Other XR ankle LT min 3V* [address] [place] [address] pushd Other XR ankle LT min 3V* [place] [address] [employer] Other XR ankle LT min 3V* XRay Report [employer] Other XR ankle LT min 3V* Signed [employer] Other XR ankle LT min 3V* Patient: Raghavendra Mejia MR#: [id number] [employer] Other XR ankle LT min 3V* 970 [employer] Other XR ankle LT min 3V* : 1975 Acct:[id number] [employer] Other XR ankle LT min 3V* Age/Sex: 47 / F ADM Date: 04/05/23 [employer] Other XR ankle LT min 3V* Loc: [facility] Room: Type : [facility] [employer] Other XR ankle LT min 3V* Attending Dr: Rodrigo Hernandez DO [employer] Other XR ankle LT min 3V* Copies to: Rodrigo Hernandez DO [employer] Other XR ankle LT min 3V* Ordering Provider: Rodrigo Hernandez DO [employer] Other XR ankle LT min 3V* Date of Service: 04/05/23 [employer] Other XR ankle LT min 3V* XR/XR ankle LT min 3V*: Other specified postprocedural states;Personal [employer] Other XR ankle LT min 3V* history of (h No rt [employer] Other XR ankle LT min 3V* LEFT ANKLE - 3 views [employer] Other XR ankle LT min 3V* CLINICAL DATA: Follow-up distal fibular fracture [employer] Other XR ankle LT min 3V* COMPARISON: 03/24/20 23 AND 03/25/2023 (INTRAOPERATIVE) [employer] Other XR ankle LT min 3V* AP, lateral and oblique views were obtained. There is artifact from a posterior splint. There is [employer] Other XR ankle LT min 3V* redemonstration of a lateral plate and multiple screws at the distal fibula. The underlying [employer] Other XR ankle LT min 3V* fractures not well seen and there is no change in alignment. There is no new fracture or [employer] Other XR ankle LT min 3V* dislocation. There a re no significant soft tissue abnormalities. [employer] Other XR ankle LT min 3V* XR/XR ankle LT min 3V* [employer] Other XR ankle LT min 3V* IMPRESSION: [employer] Other XR ankle LT min 3V* STABLE DISTAL FIBULA R FRACTURE AND FIXATION HARDWARE. [employer] Other XR ankle LT min 3V* Impression dictated by: May Sneed M.D.04/05/2023 1:26 PM [employer] Other XR ankle LT min 3V* Dictation Location: [place] [address] [employer] Other XR ankle LT min 3V* Transcribed By: REE 04/05/23 1326 [employer] Other XR ankle LT min 3V* Dictated By: May Sneed MD 04/05/23 1324 [employer] Other XR ankle LT min 3V* Signed By: [employer] Other XR ankle LT min 3V* 04/05/23 1326 No rt [employer] Other HCG ( test) IAmatilda oneil Ql (U)Ordered By: Reji Oscar on 03-25-2023 HCG ( test) Ql (U) Negative [facility] XR ankle LT min 3V*on 2022 XR ankle LT min 3V* [facility] pushd Other XR ankle LT min 3V* [facility] [employer] Other XR ankle LT min 3V* [address] [facility] [employer] Other XR ankle LT min 3V* DarenFELIPA [address] [employer] Other XR ankle LT min 3V* XRay Report [employer] Other XR ankle LT min 3V* Signed [employer] Other XR ankle LT min 3V* Patient: Raghavendra Mejia MR#: [id number] [employer] Other XR ankle LT min 3V* 970 [employer] Other XR ankle LT min 3V* : 1975 Acct:[id number] [employer] Other XR ankle LT min 3V* Age/Sex: 47 / F ADM Date: 03/18/23 [employer] Other XR ankle LT min 3V* Loc: [facility] Room: Type : REG CLI [employer] Other XR ankle LT min 3V* Attending Dr: Lori LEW [employer] Other XR ankle LT min 3V* Copies to: ALEXIS Encarnacion [employer] Other XR ankle LT min 3V* Ordering Provider: ALEXIS Encarnacion [employer] Other XR ankle LT min 3V* Date of Service: 03/18/23 [employer] Other XR ankle LT min 3V* XR/XR ankle LT min 3V*: PAIN [employer] Other XR ankle LT min 3V* LEFT ANKLE - 3 views [employer] Other XR ankle LT min 3V* CLINICAL DATA: Later al left ankle pain for the past day. No specific injury. [employer] Other XR ankle LT min 3V* COMPARISON: None [employer] Other XR ankle LT min 3V* AP, lateral and oblique views were obtained. An oblique is present at the distal fibular [employer] Other XR ankle LT min 3V* metaphysis. This is not significantly displaced. No other fractures or dislocation are noted. The [employer] Other XR ankle LT min 3V* talar dome is intact . There is mild lateral soft tissue swelling. [employer] Other XR ankle LT min 3V* XR/XR ankle LT min 3V* [employer] Other XR ankle LT min 3V* IMPRESSION: [employer] Other XR ankle LT min 3V* LATERAL MALLEOLAR FRACTURE. [employer] Other XR ankle LT min 3V* Impression dictated by: May Sneed M.D.03/18/2023 9:30 AM [employer] Other XR ankle LT min 3V* Dictation Location: [facility] [employer] Other XR ankle LT min 3V* Transcribed By: REE 03/18/23929 [employer] Other XR ankle LT min 3V* Dictated By: May Sneed MD 03/18/2328 [employer] Other XR ankle LT min 3V* Signed By: [employer] Other XR ankle LT min 3V* 03/18/23 0930 [facility] ( test) Oksanai d Ql (U)on 08-31-2018 HCG ( test) Ql (U) Negative Negative [facility] Urine culture routineon 06-13 Bacteria identified Cx Nom (U) 2 Days [facility] Albumin [Mass/volume] in Ser um or Plasmaon 06-21-2018 Albumin [Mass/Vol] 4.1 g/dL 3.2-5.5 [facility] Automated erythrocytes count in urine sediment (number/area)on 06-21-2018 RBC Auto (Urine sed) [#/Area] 5-9 [HPF] 0-4 [facility] Automated leukocytes count i n urine sediment (number/area)on 06-21-2018 WBC Auto (Urine sed) [#/Area] 5-9 [HPF] 0-4 [facility] Basophils Auto (Bld) [#/Vol] on 06-21-2018 Basophils (Bld) [#/Vol] 0.0 10*3/uL 0.0-0.2 [facility] Basophils/100 WBC Auto (Bld) on 06-21-2018 Basophils/100 WBC (Bld) 0.7 % . [facility] Bilirubin Test strip Ql (U)o n 06-21-2018 Bilirubin Ql (U) Negative Negative [facility] Cholesterol [Mass/volume] in Serum or Plasmaon 06-21-2018 Cholesterol [Mass/Vol] 188 mg/dL 140-200 [facility] Comment on above: Chol less than 200 m g/dl low riskChol 201-239 mg/dl borderline riskChol 240 mg/dl and greater high risk Cholesterol in LDL Calc [Mas s/Vol]on 06-21-2018 Cholesterol in LDL [Mass/Vol] 81 mg/dL 0-100 [facility] Comment on above: LDL ATP III CLASSIFI CATIONLDL less than 100 mg/dL OptimalLDL 100-129 mg/dL Near or above optimalLDL 130-159 mg/dL Borderline highLDL 160-189 mg/dL HighLDL greater than 189 mg/dL Very high Cholesterol in VLDL Calc [Ma ss/Vol]on 06-21-2018 Cholesterol in VLDL [Mass/Vol] 11 mg/dL [facility] Color Auto (U)on 06-21-2018 Color (U) Yellow Yellow [facility] Creatinine and Glomerular fi ltration rate.predicted panel (S/P/Bld)on 06-21-2018 Creatinine [Mass/Vol] 0.63 mg/dL 0.44-1.03 [facility] Eosinophils Auto (Bld) [#/Vo l]on 06-21-2018 Eosinophils (Bld) [#/Vol] 0.0 10*3/uL 0.0-0.45 [facility] Eosinophils/100 WBC Auto (Bl d)on 06-21-2018 Eosinophils/100 WBC (Bld) 0.9 % . [facility] Erythrocyte distribution wid th Auto (RBC) [Ratio]on 06-21-2018 Erythrocyte distribution width (RBC) [Ratio] 12.2 % 11.9-15.3 [facility] Estimated glomerular filtrat ion rate (GFR) non- Americanon 06-21-2018 GFR/1.73 sq M.predicted among non-blacks MDRD (S/P/Bld) [Vol rate/Area] mL/min/{1.73_m2} [facility] Globulin Calc (S) [Mass/Vol] on 06-21-2018 Globulin (S) [Mass/Vol] 2.8 g/dL [facility] Glucose mean value [Mass/vol ume] in Blood Estimated from glycated hemoglobinon 06-21-2018 Average glucose Estimated from glycated hemoglobin (Bld) [Mass/Vol] 100 mg/dL [facility] HbA1c (Bld)on 06-21-2018 HbA1c (Bld) [Mass fraction] 5.1 % 4.3-5.6 [facility] Comment on above: Increased risk for d iabetes: 5.7 - 6.4diabetes: >6.4glycemic control for adults with diabetes: <7.0 Hematocrit Auto (Bld) [Volum e fraction]on 06-21-2018 Hematocrit (Bld) [Volume fraction] 39.8 % 34.0-46.4 [facility] Hemoglobin [Mass/volume] in Bloodon 06-21-2018 Hemoglobin (Bld) [Mass/Vol] 13.4 g/dL 11.8-15.4 [facility] Ketones Auto test strip (U) [Mass/Vol]on 06-21-2018 Ketones (U) [Mass/Vol] Negative Negative [facility] Laboratory - Chemistry and C hemistry - challengeon 06-21-2018 Cholesterol.total/Ch olesterol in HDL [Mass ratio] 2.0 {ratio} <5.0 [facility] GFR/1.73 sq M.predicted among blacks MDRD (S/P/Bld) [Vol rate/Area] mL/min/{1.73_m2} [facility] Comment on above: GFR estimated refere nce range: According to KDOQI guidelines, <60 ml/min/1.73m2 is sufficient to diagnose a patient with chronic kidney disease. Laboratory - Urinalysison Hyaline casts LM Ql (Urine sed) 0-8 [LPF] 0-8 [facility] Leukocytes [#/volume] in Blo od by Automated counton 06-21-2018 WBC (Bld) [#/Vol] 4.9 10*3/uL 4.5-11.0 [facility] Lymphocytes Auto (Bld) [#/Vo l]on 06-21-2018 Lymphocytes (Bld) [#/Vol] 1.0 10*3/uL 1.00-4.8 [facility] Lymphocytes/100 WBC Auto (Bl d)on 06-21-2018 Lymphocytes/100 WBC (Bld) 21.2 % . [facility] MCH Auto (RBC) [Entitic mass ]on 06-21-2018 MCH (RBC) [Entitic mass] 33.4 pg 24.7-34.3 [facility] MCHC Auto (RBC) [Mass/Vol]on 06-21-2018 MCHC (RBC) [Mass/Vol] 33.7 g/dL 32.0-35.0 [facility] MCV Auto (RBC) [Entitic vol] on 06-21-2018 MCV (RBC) [Entitic vol] 98.8 fL 80-100 [facility] Monocytes Auto (Bld) [#/Vol] on 06-21-2018 Monocytes (Bld) [#/Vol] 0.4 10*3/uL 0.0-0.8 [facility] Monocytes/100 WBC Auto (Bld) on 06-21-2018 Monocytes/100 WBC (Bld) 7.5 % . [facility] Neutrophils Auto (Bld) [#/Vo l]on 06-21-2018 Neutrophils (Bld) [#/Vol] 3.4 10*3/uL 1.8-7.7 [facility] Neutrophils/100 WBC Auto (Bl d)on 06-21-2018 Neutrophils/100 WBC (Bld) 69.7 % . [facility] Nitrite Test strip Ql (U)on 06-21-2018 Nitrite Ql (U) Negative Negative [facility] No Panel Informationon 06-21 Pharmacy Creatinine Clearance (Chem N/A [facility] Platelet mean volume Auto (B ld) [Entitic vol]on 06-21-2018 Platelet mean volume (Bld) [Entitic vol] 8.0 fL 6.3-10.7 [facility] Platelets Auto (Bld) [#/Vol] on 06-21-2018 Platelets (Bld) [#/Vol] 216 10*3/uL 150-450 [facility] Protein Auto test strip (U) [Mass/Vol]on 06-21-2018 Protein (U) [Mass/Vol] Negative Negative [facility] Protein [Mass/volume] in Ser um or Plasmaon 06-21-2018 Protein [Mass/Vol] 6.9 g/dL 6.1-7.9 [facility] RBC Auto (Bld) [#/Vol]on RBC (Bld) [#/Vol] 4.03 10*6/uL 3.60-5.00 [facility] Serum or plasma alanine garcia otransferase measurement without P-5'-P (enzymatic activion 06-21-2018 ALT No additional P-5'-P [Catalytic activity/Vol] 26 U/L 10-60 [facility] Serum or plasma albumin/glob ulin mass ratioon 06-21-2018 Albumin/Globulin [Mass ratio] 1.5 {ratio} [facility] Serum or plasma alkaline sushil sphatase measurement (enzymatic activity/volume)on 06-21-2018 ALP [Catalytic activity/Vol] 47 U/L 32-92 [facility] Serum or plasma aspartate am inotransferase measurement (enzymatic activity/volume)on 06-21-2018 AST [Catalytic activity/Vol] 37 U/L 10-42 [facility] Serum or plasma calcium tom urement (mass/volume)on 06-21-2018 Calcium [Mass/Vol] 8.9 mg/dL 8.2-10.2 [facility] Serum or plasma chloride lillie surement (moles/volume)on 06-21-2018 Chloride [Moles/Vol] 102 mmol/L 95-114 [facility] Serum or plasma glucose tom urement (mass/volume)on 06-21-2018 Glucose [Mass/Vol] 81 mg/dL 70-100 [facility] Comment on above: ADA recommended refe rence rangeRandom Glucose Reference Range is dependent on time and content of last meal. Glucose of more than 200 mg/dL in a nonstressed, ambulatory subject supports the diagnosis of Diabetes Mellitus. Serum or plasma high density lipoprotein (HDL) cholesterol measurementon 06-21-2018 Cholesterol in HDL [Mass/Vol] 95 mg/dL 35-85 [facility] Comment on above: HDL CHOL ATP-III CLA SSIFICATION Cardiovascular RiskHDL > or equal to 60 mg/dL LOWHDL < 40 mg/dL HIGH Serum or plasma potassium me asurement (moles/volume)on 06-21-2018 Potassium [Moles/Vol] 3.7 mmol/L 3.5-5.1 [facility] Serum or plasma sodium measu rement (moles/volume)on 06-21-2018 Sodium [Moles/Vol] 137 mmol/L 136-146 [facility] Serum or plasma total biliru bin measurement (mass/volume)on 06-21-2018 Bilirubin [Mass/Vol] 0.6 mg/dL 0.3-1.2 [facility] Serum or plasma total carbon dioxide measurement (moles/volume)on 06-21-2018 CO2 [Moles/Vol] 24.5 mmol/L 22.0-30.0 [facility] Serum or plasma urea nitroge n measurement (mass/volume)on 06-21-2018 Urea nitrogen [Mass/Vol] 8 mg/dL 9-23 [facility] Specific gravity Auto test s trip (U) [Rel density]on 06-21-2018 Specific gravity (U) [Rel density] 1.018 1.001-1.030 [facility] Squamous epithelial cells de tection in urine sediment by light microscopyon 06-21-2018 Epithelial cells.squamous LM Ql (Urine sed) 10-19 [HPF] 0-2 [facility] TSH DL <= 0.005 mIU/L Qnon 0 06-21-2018 TSH Qn 0.72 m[IU]/L 0.45-5.33 [facility] Thyroxine (T4) free [Mass/vo lume] in Serum or Plasmaon 06-21-2018 Free T4 [Mass/Vol] 0.63 ng/dL 0.61-1.12 [facility] Triglyceride [Mass/volume] i n Serum or Plasmaon 06-21-2018 Triglyceride [Mass/Vol] 59 mg/dL 35-149 [facility] Comment on above: TRIG ATP III CLASSIF ICATIONTRIG less than 150 mg/dL NormalTRIG 150-199 mg/dL Borderline highTRIG 200-500 mg/dL High TRIG greater than 500 mg/dL Very highStandard traceable to the Center for Disease Conrtrol and Prevention (CDC) test method. Urine bacteria detection by automated methodon 06-21-2018 Bacteria Auto Ql (U) 1+ None Seen [facility] Urine clarity by refractomet ry automatedon 06-21-2018 Clarity Refractometry automated (U) Cloudy Clear [facility] Urine culture routineon Bacteria identified Cx Nom (U) 2 Days [facility] Urine glucose measurement by automated test strip (mass/volume)on 06-21-2018 Glucose Auto test strip (U) [Mass/Vol] Normal mg/dL Normal [facility] Urine hemoglobin detection b y automated test stripon 06-21-2018 Hemoglobin Auto test strip Ql (U) Trace Negative [facility] Urine leukocyte esterase det ection by automated test stripon 06-21-2018 Leukocyte esterase Auto test strip Ql (U) 1+ Negative [facility] Urobilinogen Auto test strip (U) [Mass/Vol]on 06-21-2018 Urobilinogen (U) [Mass/Vol] Normal mg/dL Normal [facility] pH Auto test strip (U)on pH (U) 6.0 [pH] 5.0-9.0 [facility] Vital Signs Date Time Vital Sign Value Performing Clinician Faci lity 03-25-2023 17:42-0400 Diastolic blood pressure 82 mm[Hg] BUSINESS OFFICE REPRESENTATIVEEmeterio Adorno Work Phone: [facility] 03-25-2023 17:42-0400 Respiratory rate 16 /min BUSINESS OFFICE REPRESENTATIVEEmeterio Adorno Work Phone: [facility] 03-25-2023 17:42-0400 SaO2% (BldA) [Mass fraction] 97 % BUSINESS OFFICE REPRESENTATIVEEmeterio Adorno Work Phone: [facility] 03-25-2023 17:42-0400 Systolic blood pressure 137 mm[Hg] BILL Adorno Work Phone: [facility] 03-25-2023 16:54-0400 Heart rate 86 /min BUSINESS OFFICE REPRESENTATIVEEmeterio Adorno Work Phone: [facility] 03-25-2023 16:19-0400 Body temperature 99.5 [degF] BILL Adorno Work Phone: [facility] 03-25-2023 16:19-0400 Inhaled oxygen flow rate 6 L/min BUSINESS OFFICE REPRESENTATIVEEmeterio Adorno Work Phone: [facility] 03-25-2023 14:31-0400 Body height 170.18 cm BUSINESS OFFICE REPRESENTATIVEEmeterio Adorno Work Phone: [facility] 03-25-2023 14:31-0400 Body mass index (BMI) [Ratio] 18.8 kg/m2 BILL Adorno Work Phone: [facility] 03-25-2023 14:31-0400 Body weight 54.43 kg BUSINESS OFFICE REPRESENTATIVEEmeterio Adorno Work Phone: [facility] 06-16-2022 08:15-0500 Body temperature 97.7 [degF] BILL Adorno Work Phone: [facility] 06-16-2022 08:15-0500 Body weight 56.9 kg BUSINESS OFFICE REPRESENTATIVEEmeterio Adorno Work Phone: [facility] 06-16-2022 08:15-0500 Diastolic blood pressure 63 mm[Hg] BILL Adorno Work Phone: [facility] 06-16-2022 08:15-0500 Heart rate 98 /min BILL Adorno Work Phone: [facility] 06-16-2022 08:15-0500 Respiratory rate 20 /min BUSINESS OFFICE REPRESENTATIVEEmeterio Adorno Work Phone: [facility] 06-16-2022 08:15-0500 SaO2% (BldA) [Mass fraction] 96 % BUSINESS OFFICE REPRESENTATIVEEmeterio Adorno Work Phone: [facility] 06-16-2022 08:15-0500 Systolic blood pressure 128 mm[Hg] BILL Adorno Work Phone: [facility] 05-31-2022 09:12-0500 Body temperature 97.8 [degF] BILL Adorno Work Phone: [facility] 05-31-2022 09:12-0500 Diastolic blood pressure 99 mm[Hg] BILL Adorno Work Phone: [facility] 05-31-2022 09:12-0500 Heart rate 100 /min BILL Adorno Work Phone: [facility] 05-31-2022 09:12-0500 Respiratory rate 18 /min BILL Adorno Work Phone: [facility] 05-31-2022 09:12-0500 SaO2% (BldA) [Mass fraction] 98 % BUSINESS OFFICE REPRESENTATIVE Rosalba Flanaganmelany Work Phone: [facility] 05-31-2022 09:12-0500 Systolic blood pressure 148 mm[Hg] BUSINESS OFFICE REPRESENTATIVE Rosalba Kyree Work Phone: [facility] 12-16-2021 08:16-0400 Body height 169.01 cm BUSINESS OFFICE REPRESENTATIVEEmeterio Flanaganmelany Work Phone: [facility] 12-16-2021 08:16-0400 Body weight 57.87 kg BUSINESS OFFICE REPRESENTATIVE Rosalba Flanaganmelany Work Phone: [facility] Encounters Encounter Date Encounter Type Care Provider Facility Start: 01-16-2025 End: 01-16-2025 ambulatory Julia Ramirez Facility:[facility] Start: 01-16-2025 End: 01-16-2025 Patient encounter procedure Julia Ramirez [facility] Start: 01-04-2025 ambulatory Julia Ramirez Facility:[facility] Start: 01-03-2025 End: 01-03-2025 ambulatory Rosalba Hamelany KHAN Work Phone: [facility] Work Phone: Start: 01-03-2025 End: 01-03-2025 Departed Referred Arnold Tolliver MD -[facility] Start: 03-04-2024 End: 03-05-2024 Emergency department [facility] Start: 06-14-2023 End: 06-14-2023 ambulatory Rodrigo Hernandez Other [employer] Other Start: 06-14-2023 Postop follow up vis it related to original px Rodrigo Hernandez [facility] Start: 05-03-2023 End: 05-03-2023 ambulatory Rodrigo Mary Other [employer] Other Start: 05-03-2023 Postop follow up vis it related to original px Rodrigo Mary [facility] Start: 05-03-2023 End: 05-03-2023 Patient encounter procedure BILL Adorno Work Phone: [facility] Start: 04-05-2023 Office outpatient ne w 45 minutes Rodrigo Mary [facility] Start: 04-05-2023 End: 04-05-2023 ambulatory BUSINESS OFFICE REPRESENTATIVEEmeterio Adorno Work Phone: [facility] Work Phone: Start: 04-05-2023 End: 04-05-2023 Patient encounter procedure BILL Adorno Work Phone: [facility] Start: 03-25-2023 End: 03-25-2023 Admission to same day surgery center BILL Adorno Work Phone: [facility] [place] Start: 03-25-2023 End: 03-25-2023 ambulatory BILL Adorno Work Phone: [facility] Work Phone: Start: 03-24-2023 End: 03-24-2023 Patient encounter procedure BILL Adorno Work Phone: [facility] Start: 03-24-2023 End: 03-24-2023 ambulatory BILL Adorno Work Phone: [facility] Work Phone: Start: 03-24-2023 Encounter for other preprocedural examination Rodrigo Hernandez [facility] Start: 03-24-2023 Office outpatient vi sit 25 minutes Rodrigo PARK [facility] Start: 03-18-2023 (OrthoExp) Ortho Rosalba NEWELL G [facility] Start: 03-18-2023 End: 03-18-2023 ambulatory Rosalba Cuevas Other [facility] pushd Other Start: 03-18-2023 End: 03-18-2023 Patient encounter procedure BUSINESS OFFICE REPRESENTATIVE Rosalba Kyree Work Phone: [facility] Start: 06-16-2022 End: 06-16-2022 ambulatory BUSINESS OFFICE REPRESENTATIVE Rosalba Flanaganmelany Work Phone: [facility] Work Phone: Start: 06-16-2022 End: 06-16-2022 Registered Recurring BUSINESS OFFICE REPRESENTATIVEEmeterio Flanaganmelany Work Phone: [facility] Work Phone: Start: 05-31-2022 End: 05-31-2022 ambulatory BUSINESS OFFICE REPRESENTATIVE Rosalba Flanaganmelany Work Phone: [facility] Work Phone: Start: 05-31-2022 End: 05-31-2022 Registered Recurring BUSINESS OFFICE REPRESENTATIVE Rosalba Flanagannapoleonaria Work Phone: [facility] Start: 10-13-2020 End: 10-14-2020 ambulatory MARINE ZALDIVAR Facility:H1 Start: 09-22-2020 End: 09-23-2020 ambulatory MARINE ZALDIVAR Facility:H1 Start: 10-12-2018 Patient encounter procedure Vivek Wells Facility:[id number] Start: 10-06-2018 Patient encounter procedure MARGARITA MORA Facility:[id number] Start: 10-05-2018 Patient encounter procedure MARGARITA MORA Facility:[id number] Start: 10-04-2018 Patient encounter procedure MARGARITA MORA Facility:[id number] Start: 10-03-2018 Patient encounter procedure MARGARITA MORA Facility:[id number] Start: 10-02-2018 Patient encounter procedure RAJENDER [...] MORGAN Facility:[id number] Start: 09-15-2018 Patient encounter procedure RAJENDER K MORGAN Facility:[id number] Start: 09-14-2018 Patient encounter procedure RAJENDER K MORGAN Facility:[id number] Start: 09-13-2018 Patient encounter procedure RAJENDER K MORGAN Facility:[id number] Start: 09-12-2018 Patient encounter procedure RAJENDER K MORGAN Facility:[id number] Start: 09-11-2018 Patient encounter procedure RAJENDER K MORGAN Facility:[id number] Start: 09-08-2018 Patient encounter procedure RAJENDER K MORGAN Facility:[id number] Start: 09-05-2018 Patient encounter procedure RAJENDER K MORGAN Facility:[id number] Start: 08-31-2018 Patient encounter procedure RAJENDER K MORGAN Facility:[id number] Start: 08-11-2018 Patient encounter procedure Vivek Wells Facility:[id number] Procedures Date Procedure Procedure Detail Performing Clinician Start: 05-03-2023 X-ray of left ankle APR N Rosalba Adorno Work Phone: Start: 04-05-2023 X-ray of left ankle APR N Rosalba Adorno Work Phone: Start: 03-25-2023 X-ray of left ankle APR N Rosalba Adorno Work Phone: Start: 03-25-2023 Open reduction of fr acture with internal fixation BILL Adorno Work Phone: Start: 03-24-2023 X-ray of left ankle APR Emeterio Adorno Work Phone: Start: 03-18-2023 X-ray of left ankle APR Emeterio Adorno Work Phone: Start: 06-01-2022 Screening mammograph y of bilateral breasts BUSINESS OFFICE REPRESENTATIVEEmeterio Adorno Work Phone: Start: 06-21-2018 Urine culture BUSINESS OFFICE REPRESENTATIVE Argenis Westaria Work Phone: Breast surgery (qual ifier value) Julia Ashley Urine culture BILL Adorno Work Phone: Plan of Treatment Date Care Activity Detail Author Start: 01-03-2025 Bacteria identified in Urine by Culture Urine Culture [facility] Start: 01-03-2025 Urine culture [facility] Start: 03-25-2023 End: 03-25-2023 [facility] MG Breast - bilatera l Screening [facility] Patient Education Quitting smoking [facility] Work Phone: [facility] Immunizations Immunization Date Immunization Notes Care Provider Fa cility 10-13-2020 SARS-CoV-2 (COVID-19 ) mRNA BNT-162b2 vax Julia Ramirez [facility] 09-22-2020 SARS-CoV-2 (COVID-19 ) mRNA BNT-162b2 vax Julia Ramirez [facility] Payers Date Payer Category Payer Unknown [id number] 2.16. [id number] 1975 Unknown [id number] 2.16. 840.1.564486.3.579.2.356 1975 Unknown [id number] 2.16. 840.1.451751.3.579.2.356 1975 Unknown [id number] 2.16. 840.1.121009.3.579.2.356 1975 Unknown [id number] 2.16. 840.1.694927.3.579.2.356 1975 Unknown [id number] 2.16. 840.1.718961.3.579.2.356 1975 Unknown [id number] 2.16. 840.1.308912.3.579.2.356 1975 Unknown [id number] 2.16. 840.1.472450.3.579.2.356 1975 Unknown [id number] 2.16 840.1.166278.3.579.2.356 1975 Unknown [id number] 2.16. 840.1.828789.3.579.2.356 1975 Unknown [id number] 2.16. 840.1.288276.3.579.2.356 1975 Unknown [id number] 2.16. 840.1.000600.3.579.2.356 1975 Unknown [id number] 2.16. 840.1.844684.3.579.2.356 1975 Unknown [id number] 2.16. 840.1.129745.3.579.2.356 1975 Unknown [id number] 2.16. 840.1.500504.3.579.2.356 1975 Unknown [id number] 2.16. 840.1.982053.3.579.2.356 1975 Unknown [id number] 2.16. 840.1.386431.3.579.2.356 1975 Unknown [id number] 2.16. 840.1.149757.3.579.2.356 1975 Unknown [id number] 2.16. 840.1.983355.3.579.2.356 1975 Unknown [id number] 2.16. 840.1.090771.3.579.2.356 1975 Unknown [id number] 2.16. 840.1.548225.3.579.2.356 1975 Unknown [id number] 2.16. 840.1.779859.3.579.2.356 1975 Unknown [id number] 2.16. 840.1.319241.3.579.2.356 1975 Unknown [id number] 2.16. 840.1.177732.3.579.2.356 1975 Unknown [id number] 2.16. 840.1.595929.3.579.2.356 1975 Unknown [id number] 2.16. 840.1.549872.3.579.2.356 1975 Unknown [id number] 2.16. 840.1.709906.3.579.2.356 1975 Unknown [id number] 2.16.84 0.1.614114.3.579.2.593 1975 Unknown [id number] 2.16.84 0.1.072118.3.579.2.593 1975 Unknown [id number] 2.16.8 40.1.018438.3.579.2.727 1959 Unknown [id number] Medicaid [id number] Private Health Insurance [id number] Self-pay Self Pay [id number] Social History Date Type Detail Facility Start: 12-16-2021 End: 12-16-2021 Tobacco smoking status NHIS Current some day smoker [facility] Start: 1975 Sex Assigned At Female F [facility] Sex Assigned At [facility] Start: 03-25-2023 End: 03-25-2023 Tobacco smoking status NHIS Smoker (finding) [facility] Start: 03-25-2023 Tobacco smoking stat us NHIS Smokes tobacco daily (finding) [facility] Sex Female (finding) [facility] Start: 01-16-2025 Tobacco smoking status Heavy t obacco smoker (finding) [facility] Tobacco smoking status Never [facility] Sexual Orientation [facility] Medical Equipment Procedure Code Equipment Code Equipment Origin al Text Equipment Identifier Dates ORIF, fracture, ankle Orthopaedic fixation plate, non-bioabsorbable, non-sterile ()[id number] FDA Start: 03-25-2023 ORIF, fracture, ankle Orthopaedic bone screw, non-bioabsorbable, non-sterile ()[id number] FDA Start: 03-25-2023 ORIF, fracture, ankle Orthopaedic bone screw, non-bioabsorbable, non-sterile ()[id number] FDA Start: 03-25-2023 ORIF, fracture, ankle Orthopaedic bone screw, non-bioabsorbable, non-sterile ()[id number] FDA Start: 03-25-2023 ORIF, fracture, ankle Orthopaedic bone screw, non-bioabsorbable, non-sterile ()[id number] FDA Start: 03-25-2023 ORIF, fracture, ankle Orthopaedic bone screw, non-bioabsorbable, non-sterile ()[id number] FDA Start: 03-25-2023 ORIF, fracture, ankle Orthopaedic bone screw, non-bioabsorbable, non-sterile ()[id number] FDA Start: 03-25-2023 Goals Date Patient Goal Desired Activity /State Clinical Notes 06-21-2018 to 01-16-2025 Note Date & Type Note Facility 01-16-2025 Hospital Discharg e instructions Patient Education 01/16/2025 09:48:50 Hematuria, Adult Hematuria, Adult Hematuria is blood in the urine. Blood may be visible in the urine, or it may be identified with a test. This condition can be caused by infections of the bladder, urethra, kidney, or prostate. Other possible causes include: Kidney stones. Cancer of the urinary tract. Too much calcium in the urine. Conditions that are passed from parent to child (inherited conditions). Exercise that requires a lot of energy. Infections can usually be treated with medicine, and a kidney stone usually will pass through your urine. If neither of these is the cause of your hematuria, more tests may be needed to identify the cause of your symptoms. It is very important to tell your health care provider about any blood in your urine, even if it is painless or the blood stops without treatment. Blood in the urine, when it happens and then stops and then happens again, can be a symptom of a very serious condition, including cancer. There is no pain in the initial stages of many urinary cancers. Follow these instructions at home: Medicines Take xkdr-sgw-waczxss and prescription medicines only as told by your health care provider. If you were prescribed an antibiotic medicine, take it as told by your health care provider. Do not stop taking the antibiotic even if you start to feel better. Eating and drinking Drink enough fluid to keep your urine pale yellow. It is recommended that you drink 3 4 quarts (2.8 3.8 L) a day. If you have been diagnosed with an infection, drinking cranberry juice in addition to large amounts of water is recommended. Avoid caffeine, tea, and carbonated beverages. These tend to irritate the bladder. Avoid alcohol because it may irritate the prostate (in males). General instructions If you have been diagnosed with a kidney stone, follow your health care provider's instructions about straining your urine to catch the stone. Empty your bladder often. Avoid holding urine for long periods of time. If you are female: ?After a bowel movement, wipe from front to back and use each piece of toilet paper only once. ?Empty your bladder before and after sex. Pay attention to any changes in your symptoms. Tell your health care provider about any changes or any new symptoms. It is up to you to get the results of any tests. Ask your health care provider, or the department that is doing the test, when your results will be ready. Keep all follow-up visits. This is important. Contact a health care provider if: You develop back pain. You have a fever or chills. You have nausea or vomiting. Your symptoms do not improve after 3 days. Your symptoms get worse. Get help right away if: You develop severe vomiting and are unable to take medicine without vomiting. You develop severe pain in your back or abdomen even though you are taking medicine. You pass a large amount of blood in your urine. You pass blood clots in your urine. You feel very weak or like you might faint. You faint. Summary Hematuria is blood in the urine. It has many possible causes. It is very important that you tell your health care provider about any blood in your urine, even if it is painless or the blood stops without treatment. Take olua-jtn-jiwdkdw and prescription medicines only as told by your health care provider. Drink enough fluid to keep your urine pale yellow. This information is not intended to replace advice given to you by your health care provider. Make sure you discuss any questions you have with your health care provider. Document Revised: 01/28/2021 Document Reviewed: 01/28/2021 [employer] Patient Education 2023 Webcom. Follow Up Care 01/04/2025 10:46:03 With:Julia Ramirez PA-C, URL Address: When: Unknown Comments:F/U in 3 months w/ UA [facility] 01-16-2025 Note Patient Education Urology Hematuria, Adult Hematuria is blood in the urine. Blood may be visible in the urine, or it may be identified with a test. This condition can be caused by infections of the bladder, urethra, kidney, or prostate. Other possible causes include: ??? Kidney stones. ??? Cancer of the urinary tract. ??? Too much calcium in the urine. ??? Conditions that are passed from parent to child (inherited conditions). ??? Exercise that requires a lot of energy. Infections can usually be treated with medicine, and a kidney stone usually will pass through your urine. If neither of these is the cause of your hematuria, more tests may be needed to identify the cause of your symptoms. It is very important to tell your health care provider about any blood in your urine, even if it is painless or the blood stops without treatment. Blood in the urine, when it happens and then stops and then happens again, can be a symptom of a very serious condition, including cancer. There is no pain in the initial stages of many urinary cancers. Follow these instructions at home: Medicines ??? Take ndau-oum-bzebizq and prescription medicines only as told by your health care provider. ??? If you were prescribed an antibiotic medicine, take it as told by your health care provider. Do not stop taking the antibiotic even if you start to feel better. Eating and drinking ??? Drink enough fluid to keep your urine pale yellow. It is recommended that you drink 3?4 quarts (2.8?3.8 L) a day. If you have been diagnosed with an infection, drinking cranberry juice in addition to large amounts of water is recommended. ??? Avoid caffeine, tea, and carbonated beverages. These tend to irritate the bladder. ??? Avoid alcohol because it may irritate the prostate (in males). General instructions ??? If you have been diagnosed with a kidney stone, follow your health care provider's instructions about straining your urine to catch the stone. ??? Empty your bladder often. Avoid holding urine for long periods of time. ??? If you are female: ? After a bowel movement, wipe from front to back and use each piece of toilet paper only once. ? Empty your bladder before and after sex. ??? Pay attention to any changes in your symptoms. Tell your health care provider about any changes or any new symptoms. ??? It is up to you to get the results of any tests. Ask your health care provider, or the department that is doing the test, when your results will be ready. ??? Keep all follow-up visits. This is important. Contact a health care provider if: ??? You develop back pain. ??? You have a fever or chills. ??? You have nausea or vomiting. ??? Your symptoms do not improve after 3 days. ??? Your symptoms get worse. Get help right away if: ??? You develop severe vomiting and are unable to take medicine without vomiting. ??? You develop severe pain in your back or abdomen even though you are taking medicine. ??? You pass a large amount of blood in your urine. ??? You pass blood clots in your urine. ??? You feel very weak or like you might faint. ??? You faint. Summary ??? Hematuria is blood in the urine. It has many possible causes. ??? It is very important that you tell your health care provider about any blood in your urine, even if it is painless or the blood stops without treatment. ??? Take aadb-nkx-jjlnymo and prescription medicines only as told by your health care provider. ??? Drink enough fluid to keep your urine pale yellow. This information is not intended to replace advice given to you by your health care provider. Make sure you discuss any questions you have with your health care provider. Document Revised: 01/28/2021 Document Reviewed: 01/28/2021 [employer] Patient Education ? 2023 Webcom. [facility] 06-14-2023 Evaluation note Encounter Date Diagnosis Assessment [...] of (healed) traumatic fracture (ICD-10 - Z87.81) [employer] Other 11-21-2023 Evaluation note* Encounter Date Diagnosis [...] of (healed) traumatic fracture (ICD-10 - Z87.81) [employer] Other 10-24-2023 Evaluation note* Encounter Date Diagnosis [...] of (healed) traumatic fracture (ICD-10 - Z87.81) [employer] Other 10-12-2023 Evaluation note* Encounter Date Diagnosis [...] pain for many months and potentially cause rn long term care pain and stiffness. We have discussed the many potential complications of surgery including respiratory, cardiac, and patient positioning during anesthesia. The risks of DVT, scarring, group home pain, non union, hardware failure, development of [...] to smoking and advised on smoking cessation. [employer] Other 10-06-2023 Evaluation note* Encounter Date Diagnosis [...] Acute left ankle pain (ICD-10 - M25.572) [employer] Other 01-04-2023 Progress note Author Carmela Sewell [facility] June 16, 2022 8:34am Note Date/Time June 16, 2022 8: 30am [facility] [place] [address] Hem/Onc Follow Up Note - OP Signed Patient: Eneida eMjia MR#: [id number] : 1975 Acct:[id number] Age/Sex: 47 / F Type: REG RCR Copies to: DO oRsalba Rodriguez APRN, GABRIEL~ Subjective Date/Time of Service: [...] has some sensitivity. She may use any gjxg-ovt-ayofssl nondrowsy allergy medicine such as Claritin or [...] follow-up with her in 6 months with BIO MEDICAL TECHNICIAN exam. [facility] 20-minute follow-up visit. 12/16/2021: Eneiad presents for follow-up for her breast cancer [...] social Social History Comments: works with a [employer] and [employer] one son. Home Medications & Allergies Allergies [...] Staging: Left breast moderate differentiated (Grade 2, Alej[place] score 7) pT2 (22mm), pN0, M0--ER +90%, WY+ 95%, Her2 equivocal IHC/negative FISH. Oncotype Dx [...] of significant medication interactions between tamoxifen and lreb-djg-zwplrmj allergy medicines. Her mammogram and exam showed [...] for coordination of care (as documented) and jits-ao-ojvc counseling of patient and/or family. Dictated By: Carmela Sewell MD DD/ Signed By: <Electronically signed by MD Carmela Sewell> 06/16/22 0834 [facility] Work Phone: 1([phone]) 188-155812-19-2022 Progress note Author Margarita Mora [facility] May 31, 2022 12:42pm Note Date/Time May 31, 2022 12:[address] [place] [address] [place] [address] Rad Onc Follow Up Note - OP Signed Patient: Eneida Mejia MR#: [id number] : 1975 Acct:[id number] Age/Sex: 47 / F Type: REG RCR Copies to: MD Tomi Sarmiento DO Jennifer Hacker APRN, POWER SYSTEM ENGINEER~ Subjective - Service Date/Time Date: 05/31/22 Time: 10:00 - Diagnosis 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 The ER/WY receptors were positive and the HER-2/marcin was [...] 2, stage pT2 pN0 M0, ER positive, WY positive and HER-2/marcin negative Assessment & Plan (1) Carcinoma of upper-outer quadrant of left breast in female, estrogen receptor positive Plan: Patient with clinically localized left breast carcinoma of the upper outer quadrant, stage pT2 pN0 M0, stage Ib is ER/ WY receptor positive and HER-2/marcin negative and she [...] signed by Margarita Mora MD> 05/31/22 1242 [facility] Work Phone: 1(695) 147-304907-06-2022 Progress note Author Jessica Spangler [facility] December 16, 2021 8:41am Note Date/Time December 16, 2021 8:37a m [facility] [place] [address] Hem/Onc Follow Up Note - OP Signed Patient: Eneida Mejia MR#: [id number] : 1975 Acct:[id number] Age/Sex: 46 / F Type: REG RCR Copies to: MD Tomi Sarmiento DO Jennifer Hacker APRN, POWER SYSTEM ENGINEER~ Subjective Date/Time of Service: Date of Service: [...] & no additional complaints except as documented PMFSH - Medical History Medical History: Medical [...] social Social History Comments: works with a [employer] and [employer] one son. Home Medications & Allergies Allergies [...] Staging: Left breast moderate differentiated (Grade 2, [place] score 7) pT2 (22mm), pN0, M0--ER +90%, WY+ 95%, Her2 equivocal IHC/negative FISH. Oncotype Dx [...] for coordination of care (as documented) and kflo-xn-mbsl counseling of patient and/or family. Dictated By: Jessica Spangler APRN DD/ Signed By: <Electronically signed by BILL Spangler> 12/16/21 0841 [facility] Work Phone: 1(411) 580-357101-05-2022 Progress note Author Carmela Sewell [facility] June 17, 2021 8:24am Note Date/Time June 17, 2021 8: 07am [facility] [place] [id number] Hem/Onc Follow Up Note - OP Signed Patient: Eneida Mejia MR#: [id number] : 1975 Acct:[id number] Age/Sex: 46 / F Type: REG RCR Copies to: DO Rosalba Rodriguez APRN, POWER SYSTEM ENGINEER~ Subjective Date/Time of Service: Date of Service: [...] social Social History Comments: works with a [employer] and [employer] one son. Home Medications & Allergies Allergies [...] mamms;History of breast cancer Copies to: DO Rosalba Rodriguez BUSINESS OFFICE REPRESENTATIVE, POWER SYSTEM ENGINEER~ CLINICAL DATA: Previous left breast cancer. BILATERAL [...] score 7) pT2 (22mm), pN0, M0--ER +90%, WY+ 95%, Her2 equivocal IHC/negative FISH. Oncotype Dx [...] for coordination of care (as documented) and psrx-jf-bkzp counseling of patient and/or family. Dictated By: Carmela Sewell MD DD/ 5 Signed By: <Electronically signed by MD Carmela Sewell> 06/17/2124 [facility] Work Phone: 1(821) 645-899211-18-2021 Progress note Author Carmela Sewell [facility] April 30, 2021 5:25pm Note Date/Time April 29, 2021 3:26pm [facility] at [address] [place] [address] Hem/Onc Follow Up Note - OP Signed Patient: Eneida Mejia MR#: [id number] : 1975 Acct:[id number] Age/Sex: 45 / F Type: REG RCR Copies to: DO Rosalba Rodriguez BUSINESS OFFICE REPRESENTATIVE, POWER SYSTEM ENGINEER~ Subjective Date/Time of Service: Date of Service: [...] social Social History Comments: works with a [employer] and [employer] one son. Home Medications & Allergies Allergies [...] wo/w con CAD: N64.59 Copies to: Tomi Salas DO~ BILATERAL BREAST MRI WITHOUT AND WITH INTRAVENOUS [...] All imaged data was reviewed using the [employer] system. The postcontrast images were subtracted and [...] Staging: Left breast moderate differentiated (Grade 2, [place] score 7) pT2 (22mm), pN0, M0--ER +90%, WY+ 95%, Her2 equivocal IHC/negative FISH. Oncotype Dx [...] for coordination of care (as documented) and farx-ed-reqq counseling of patient and/or family. Dictated By: Carmela Sewell MD DD/ 1525 Signed By: <Electronically signed by MD Carmela Sewell> 04/30/21 1095 [facility] Work Phone: 1(152) 304-722611-16-2021 Progress note Author Margarita Mora [facility] April 28, 2021 4:42pm Note Date/Time April 28, 2021 2:51pm [facility] at [address] [address] Rad Onc Follow Up Note - OP Signed Patient: Eneida Mejia MR#: [id number] : 1975 Acct:[id number] Age/Sex: 45 / F Type: REG RCR Copies to: MD Tomi Sarmiento DO Jennifer Hacker APRN, POWER SYSTEM ENGINEER~ Subjective - Service Date/Time Date: 04/28/21 Time: 14:51 - Diagnosis 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 The ER/WY receptors were positive and the HER-2/marcin was [...] 2, stage pT2 pN0 M0, ER positive, WY positive and HER-2/marcin negative Assessment & Plan (1) Carcinoma of upper-outer quadrant of left breast in female, estrogen receptor positive Plan: Patient with clinically localized left breast carcinoma of the upper outer quadrant, stage pT2 pN0 M0, stage Ib is ER/ WY receptor positive and HER-2/marcin negative and she [...] than 30 minutes I spent 20 minutes grrg-tg-yjpf time with this patient and more than 50% of timeallotted to patient education, answering questions, and coordinating care. N.B: Voice-recognition software was used in the creation of this note. Efforts were made to detect and correct typographical and/or grammatical errors;please excuse them should you find any. Dictated By: Margarita Mora MD DD/ 5083 Signed By: <Electronically signed by Margarita Mora MD> 04/28/21 8774 [facility] Work Phone: 1([phone]) 200-775111-12-2020 Progress note Author Margarita Mora [facility] April 24, 2020 10:44am Note Date/Time April 24, 2020 10:38am [facility] [place] [id number] Rad Onc Follow Up Note - OP Signed Patient: Eneida Mejia MR#: [id number] : 1975 Acct:[id number] Age/Sex: 44 / F Type: REG RCR Copies to: MD Tomi Herrera, DO Rosalba Adorno BUSINESS OFFICE REPRESENTATIVE, POWER SYSTEM ENGINEER~ Subjective - Service Date/Time Date: 04/24/20 Time: 10:00 - Diagnosis 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 The ER/WY receptors were positive and the HER-2/marcin was [...] 2, stage pT2 pN0 M0, ER positive, WY positive and HER-2/marcin negative Assessment & Plan (1) Carcinoma of upper-outer quadrant of left breast in female, estrogen receptor positive Plan: Patient with clinically localized left breast carcinoma the upper outer quadrant, stage pT2 pN0 M0, stage Ib is ER/ WY receptor positive and HER-2/marcin negative status post [...] signed by Margarita Mora MD> 04/24/20 1044 [facility] Work Phone: 1([phone] 742-841311-12-2020 Progress note Author Vivek Wells [facility] April 24, 2020 10:27am Note Date/Time April 24, 2020 9:44am [facility] [place] [address] Hem/Onc Follow Up Note - OP Signed Patient: Eneida Mejia MR#: [id number] : 1975 Acct:[id number] Age/Sex: 44 / F Type: REG RCR Copies to: DO Rosalba Rodriguez APRN, CNP~ Subjective Date/Time of Service: Date [...] social Social History Comments: works with a [employer] and [employer]. one son. Home Medications & Allergies Allergies [...] for coordination of care (as documented) and jimg-wl-gqax counseling of patient and/or family. Dictated By: Vivek Wells MD DD/ 0935 Signed By: <Electronically signed by Vivek Wells MD> 04/24/[address] [place] [address] Work Phone: [phone] Progress note Author Vivek Wells [facility] April 25, 2019 10:08am Note Date/Time April 25, 2019 9:50am [facility] [place] [address] Hem/Onc Follow Up Note - OP Signed Patient: Eneida Mejia MR#: [id number] : 1975 Acct:[id number] Age/Sex: 43 / F Type: REG RCR Copies to: DO Rosalba Rodriguez APRN, POWER SYSTEM ENGINEER~ Subjective Date/Time of Service: Date of Service: [...] social Social History Comments: works with a [employer] and [employer] one son. Home Medications & Allergies Allergies [...] for coordination of care (as documented) and scjx-mz-izrp counseling of patient and/or family. Dictated By: Vivek Wells MD DD/ 0949 Signed By: <Electronically signed by Vivek Wells MD> 04/25/19 1005 [facility] Work Phone: [phone] Progress note Author Margarita Menauja [facility] April 25, 2019 10:08am Note Date/Time April 25, 2019 9:55am [facility] [place] [address] Rad Onc Follow Up Note - OP Signed Patient: Eneida Mejia MR#: [id number] : 1975 Acct:[id number] Age/Sex: 43 / F Type: REG RCR Copies to: MD Tomi Herrera DO Jennifer Hacker APRN, CNP~ Subjective - Service Date/Time Date: 04/25/19 Time: 09:54 - Diagnosis 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 I've closely reviewed the patient's oncologic, medical, [...] 2, stage pT2 pN0 M0, ER positive, WY positive and HER-2/marcin negative Assessment & Plan (1) Carcinoma of upper-outer quadrant of left breast in female, estrogen receptor positive Plan: Patient with clinically localized left breast carcinoma the upper outer quadrant, stage pT2 pN0 M0, stage Ib is ER/ WY receptor positive and HER-2/marcin negative status post [...] <Electronically signed by Margarita Mora MD> 04/25/19 9956 [facility] Work Phone: 1([phone]) 565-169108-06-2019 Progress note Author Jacy Pollack [facility] January 16, 2019 10:02am Note Date/Time January 16, 2019 8:[address] [facility] at [address] [address] Hem/Onc Follow Up Note - OP Signed Patient: Eneida Mejia MR#: [id number] : 1975 Acct:[id number] Age/Sex: 43 / F Type: REG RCR Copies to: Tomi Salas, DO Rosalba Adorno APRN, GABRIEL~ Subjective Date/Time of Service: Date of Service: 01/16/2019 Time of Service: 08:40 Chief Complaint: 3 month follow up appt no new concerns - Diagnosis DIAGNOSIS: DIAGNOSIS: 1. Stage IB (pT2-2.2cm, N0-0/2 nodes, Mx), ER 90%, WY 95%, Her-2 negative, grade2 (Alejandro score 7), [...] <3% at 9 years, benefit of chemotherapy<1%; Quaero OvaNext gene panel: NEGATIVE. The panel included [...] social Social History Comments: works with a [employer] and [employer] one son. Home Medications & Allergies Allergies [...] for coordination of care (as documented) and svnt-vx-pzqo counseling of patient and/or family. Dictated By: Jacy Pollack APRN DD/ 0857 Signed By: <Electronically signed by BILL Pollack> 01/16/[address] [place] [address] Ctr Work Phone: [phone] Progress note Author Margarita Mora [facility] November 08, 2018 10:52am Note Date/Time November 08, 2018 10:40 am [facility] [place] [address] Rad Onc Follow Up Note - OP Signed Patient: Eneida Mejia MR#: [id number] : 1975 Acct:[id number] Age/Sex: 43 / F Type: REG RCR Copies to: MD Tomi Herrera, DO Rosalba Adorno APRN, POWER SYSTEM ENGINEER~ Subjective - Service Date/Time Date: 11/08/18 Time: 09:00 - Diagnosis 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 The ER/WY receptors were positive and the HER-2/marcin was [...] pT2 pN0 M0, stage Ib, ER positive, WY positive and HER-2/marcin negative Assessment & Plan (1) Carcinoma of upper-outer quadrant of left breast in female, estrogen receptor positive Plan: Patient with clinically localized left breast carcinoma the upper outer quadrant, stage pT2 pN0 M0, stage Ib is ER/ WY receptor positive and HER-2/marcin negative status post [...] signed by Margarita Mora MD> 11/08/18 1052 [facility] Work Phone: 1([phone] Progress note Author Vivek Wells [facility] October 12, 2018 10:38am Note Date/Time October 12, 2018 10:10a m [facility] [place] [address] Hem/Onc Follow Up Note - OP Signed Patient: Eneida Mejia MR#: [id number] : 1975 Acct:[id number] Age/Sex: 43 / F Type: REG RCR Copies to: DO Rosalba Rodriguez APRN, GABREIL~ Subjective Date/Time of Service: Date of Service: 10/12/2018 Time of Service: 10:10 Chief Complaint: Survivorship appt discuss Tamoxifen - Diagnosis DIAGNOSIS: 1. Stage IB (pT2-2.2cm, N0-0/2 nodes, Mx), ER 90%, WY 95%, Her-2 negative, grade2 ([place] score 7), diagnosed ultrasound-guided biopsy on 05/18/18. [...] <3% at 9 years, benefit of chemotherapy<1%; Quaero OvaNext gene panel: NEGATIVE. The panel included [...] MUSCULOSKELETAL: No back pain, or joint pain. PMF - Social History Smoking Status: Never smoker [...] PO QHS PRN 07/21/18 10/12/18 History hyaluronic Jo-rdgovpdmt-brqp 1 applic TOPICAL TID 09/13/18 10/12/18 History [...] IB (pT2-2.2cm, N0-0/2 nodes, Mx), ER 90%, WY 95%, Her-2 negative, grade 2 ([place] score 7). ECOG 0. Clinical no symptoms [...] discharge, she should call us or her certified residential medication aide for evaluation. Mrs. Mejia verbalized good understanding and agreed to proceed. Tamoxifen [id number], with 3 refills, E-prescribed. -We further discuss [...] 1000 units daily. -Calcium supplement 600mg daily. rn long term care (12 month patient goals): 1.) Exercise more [...] for coordination of care (as documented) and lpvn-am-mukb counseling of patient and/or family. Dictated By: Vivek Wells MD DD/ 1010 Signed By: <Electronically signed by Vivek Wells MD> 10/12/18 1038 [facility] Work Phone: [phone] Consult note Author Margarita Mora [facility] August 31, 2018 11:05am Note Date/Time August 31, 2018 9:2 7am [facility] [place] [address] Rad Onc Consult Note - OP Signed Patient: Eneida Mejia MR#: [id number] : 1975 Acct:[id number] Age/Sex: 43 / F Type: REG RCR Copies to: MD Maritza Herrera Fredric DO Jennifer Hacker APRN, POWER SYSTEM ENGINEER~ HPI - Service Date/Time Date: 08/31/18 Time: 09:26 Diagnosis: 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 The ER/WY receptors were positive and the HER-2/marcin was [...] complaints of fever, chills or night sweats. [facility]/Meds Medical/Surgical History: Past history significant for right oophorectomy at age 31 and the pathology was benign. Family History: No significant family history of malignancy. 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 She lives in [place], [place]. Allergies/Adverse Reactions: Allergies Allergy/AdvReac Type Severity [...] pT2 pN0 M0, grade 2, ER positive, WY positive and HER-2 negative status post lumpectomy and sentinel node biopsy. Her Oncotype score is 9 (low risk). Assessment & Plan (1) Carcinoma of upper-outer quadrant of left breast in female, estrogen receptor positive Plan: Patient with clinically localized left breast carcinoma the upper outer quadrant, stage pT2 pN0 M0, stage Ib is ER/ WY receptor positive and HER-2/marcin negative. Her Oncotype [...] <Electronically signed by Margarita Mora MD> 08/31/18 4340 [facility] Work Phone: [phone] Progress note Author Vivek Wells [facility] August 31, 2018 9:04am Note Date/Time August 31, 2018 8:5 5am [facility] [place] [address] Hem/Onc Follow Up Note - OP Signed Patient: Eneida Mejia MR#: [id number] : 1975 Acct:[id number] Age/Sex: 43 / F Type: REG RCR Copies to: Tomi Salas APRN, CNP~ Subjective Date/Time of Service: Date of Service: 08/31/2018 Time of Service: 08:53 Chief Complaint: Follow up to review oncotype - Diagnosis DIAGNOSIS: 1. Stage IB (pT2-2.2cm, N0-0/2 nodes, Mx), ER 90%, WY 95%, Her-2 negative, grade2 ([place] score 7), diagnosed ultrasound-guided biopsy on 05/18/18. [...] <3% at 9 years, benefit of chemotherapy<1%; Quaero OvaNext gene panel: NEGATIVE. The panel included [...] No back pain, or joint pain. ONC PMF - General Attestation statement: The following information was validated with the patient. - Medical History Medical history: No Medical History - Surgical History Surgical History Comment: ovary removed - Cardiac History Patient on Turnaround Planner: No Does Patient Have Pacemaker?: No - Psych History Psychiatric history: no psych history - NATIONAL PARK RANGER Hx : 2 Para: 2 NATIONAL PARK RANGER history: no NATIONAL PARK RANGER history - Family History Family History: no [...] IB (pT2-2.2cm, N0-0/2 nodes, Mx), ER 90%, WY 95%, Her-2 negative, grade 2 (Alejandro score [...] chemotherapy. The patient will be discussed at [facility] tumor conference. She is going to this [...] for coordination of care (as documented) and bwln-vv-ehfh counseling of patient and/or family. Dictated By: Vivek Wells MD DD/ 0853 Signed By: <Electronically signed by Vivek Wells MD> 08/31/18 0904 [facility] Work Phone: [phone] Progress note Author Tara Hernandez [facility] August 23, 2018 11:09am Note Date/Time August 23, 2018 11: 06am [facility] [place] [address] Genetics Follow Up Note Signed Patient: Eneida Mejia MR#: [id number] : 1975 Acct:[id number] Age/Sex: 43 / F Type: REG RCR Copies to: MD Maritza Herrera Fredric DO Jennifer Hacker APRN, CNP~ Genetics Follow Up Note Narrative: HPI: Ms. Eneida Mejia is a 43-year old female with a personal history of early-onsetbreast cancer. She was referred to the [facility] at [facility] by her physician, Dr. Salas. Ms. Mejia [...] recommendations for her future health care. RESULTS: Quaero OvaNext gene panel: NEGATIVE Ms. Mejia does not have an identifiable deleterious mutation in any of the genesanalyzed on the [employer] panel. These genes include the following:~BRIAN, BARD1, [...] medical science thatwill come with time. Ms. Ladds history is most likely consistent with a familial cancer risk of unknown etiology. We suggested that Ms. Mejia or her family members contact the [facility] in 3 years to [...] the cancer in Ms. Mejia. 2. Ms. Ladds daughter and female relatives remain at elevated [...] available. 4. We remain available at the [facility] at [phone] for questions or concerns about the information discussed at this appointment. Tara Hernandez MD Clinical Bioinformatics Specialist Departments of Genetics and Genome Sciences and Pediatrics [facility] Total counseling time 10 min. Dictated By: Tara Hernandez MD DD/ 110 Signed By: <Electronically signed by Tara Hernandez MD> 08/23/18 0318 [facility] Work Phone: [phone] Consult note Author Vivek Wells [facility] August 22, 2018 2:19pm Note Date/Time August 11, 2018 3:00 pm [facility] [place] [id number] Hem/Onc Consult Note - OP Signed with Addenda Patient: Eneida Mejia MR#: [id number] : 1975 Acct:[id number] Age/Sex: 43 / F Type: REG RCR Copies to: Tomi Salas APRN, POWER SYSTEM ENGINEER~ ADDENDUM1 Oncotype Dx score 9, Rad Onc referral made. Addendum Dictated By: Vivek Wells MD Addendum Signed By: Addendum Cosigned By: DD/ /31/1419 TD/TT: 08/22/1805/31/1419 HPI Date/Time of Service: Date of Service: 08/11/2018 Time of Service: 14:59 Referring Provider/PCP: Referring Provider: Tomi Salas DO PCP: Rosalba Adorno APRN, BIO MEDICAL TECHNICIAN-C - History of Present Illness Reason for [...] alreadyhad a genetic counseling, results pending. ONC [facility] - General Attestation statement: The following information was validated with the patient. - Medical History Medical history: No Medical History - Surgical History Surgical History Comment: ovary removed - Cardiac History Patient on Turnaround Planner: No Does Patient Have Pacemaker?: No - Psych History Psychiatric history: no psych history - N[employer] PARK RANGER Hx : 2 Para: 2 NATIONAL PARK RANGER history: no NATIONAL PARK RANGER history - Family History Family History: no [...] cm from nipple, biopsy: -Invasive ductal carcinoma, Alejandro histologic score 6 (3+3+1) -Ductal carcinoma in situ, nuclear grade 1-2, cribriform pattern, with focal central necrosis. -ER positive at 90%; WY 95%; HER-2 IHC 2+, FISH negative ratio 1.0 Pathological diagnosis 07/28/18: A.sentinel lymph nodes, left axilla, biopsy: -2 lymph nodes, negative for metastatic carcinoma. B.left breast, lumpectomy: -Invasive ductal carcinoma, [place] histologic score 7(2+3+2), size 22 mm. -Ductal [...] diagnostic mammo BI w/CAD: LUMP LT BREAST ([id number]) US/US breast LT limited: N63.20 Tomosynthesis craniocaudal [...] IB (pT2-2.2cm, N0-0/2 nodes, Mx), ER 90%, WY 95%, Her-2 negative, grade 2 ([place] score 7). ECOG 0. Clinical no symptoms [...] weeks. -The patient will be discussed at [facility] tumor conference, I will see her back [...] for coordination of care (as documented) and bynw-ac-srly counseling of patient and/or family. Dictated By: Vivek Wells MD DD/ 1459 Signed By: <Electronically signed by Vivek Wells MD> 08/11/18 6486 [facility] Work Phone: [phone] Consult note Author Tara Hernandez [facility] June 21, 2018 3:00pm Note Date/Time June 21, 2018 12 :16pm [facility] [place] [address] Genetics Consult Note Signed Patient: Eneida Mejia MR#: [id number] : 1975 Acct:[id number] Age/Sex: 43 / F Type: PRE RCR Copies to: Tomi Salas APRN, CNP~ Genetics Consultation Note - Consult Note Narrative: HISTORY OF PRESENT ILLNESS: Ms. Eneida Mejia is a 43-year old female with a personal history of early-onsetbreast cancer. She was referred to the [facility]etics [facility] at [facility] by her physician, Dr. Salas. Ms. Mejia [...] Pathology was consistent with invasive ductal carcinoma, ER/WY positive. Surgery date is pending. HISTORY of [...] early 60s Ms. Mejia is of Mixed /Thai descent. There is no known Ashkenazi Adventism ancestry. Consanguinity was denied. OFC: 53 cm [...] if positive. If negative, reflex testing to [employer] OvaNext panel will be performed, which looks at the following additional genes: BARD1, BRIP1, DICER1, EPCAM, MLH1, MRE11A, MSH2, MSH6, MUTYH,NBN, NF1, PMS2, RAD50, RAD51C, RAD51D, SMARCA4, and STK11. Results of this testing are typically available within 3 weeks, and [facility] [...] was drawn. The sample was sent to [employer] for analysis. The 8 gene high riskpanel is usually available in 7-10 days. The larger panel results are expected in 3 weeks. 2. We remain available to Ms. Mejia or her family members at [phone] if anyquestions arise regarding information discussed at today's visit. Starr Pack MS Licensed Genetic Counselor [facility] Tara Hernandez MD Clinical Bioinformatics Specialist Departments of Genetics and Genome Sciences and Pediatrics [facility] PHYSICIAN STATEMENT OF TIME: I spent 10 minutes with this patient and >50% was spent on counseling and coordination of care. Dictated By: Starr Pack DD/ 1215 Signed By: <Electronically signed by Starr Pack> 06/21/18 1216 <Electronically signed by Tara Hernandez MD> 06/21/18 1500 [facility] Work Phone: Evaluation + Plan note No data available for this section [facility] evaluation note* Diagnosis Onset Date Resolution Status Decreased sex drive acute Encounter for smoking cessation counseling acute Tobacco dependence acute [id number] chronic Encounter for monitoring tamoxifen therapy chronic Noncompliance with diagnostic testing chronic Noncompliance with medication regimen chronic [facility] Work Phone: Evaluation noteNo assessment information available [facility] Work Phone: History general Narrative - Reported* Type Description Date Surgical History ovarian tumor Surgical History breast cancer [facility] Other Hospital Discharge instructions Additional Instructions POST OPERATIVE INSTRUCTIONS FOR THE ANKLE FRACTURE Rodrigo Hernandez DO Orthopedic Surgeon [facility] General instructions: Use ice packs to the [...] or drainage, please contact our office immediately. 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 The ER/WY receptors were positive and the HER-2/marcin was [...] 2, stage pT2 pN0 M0, ER positive, WY positive and HER-2/marcin negative Assessment & Plan (1) Carcinoma of upper-outer quadrant of left breast in female, estrogen receptor positive Plan: Patient with clinically localized left breast carcinoma of the upper outer quadrant, stage pT2 pN0 M0, stage Ib is ER/ WY receptor positive and HER-2/marcin negative and she [...] signed by Margarita Mora MD> 05/31/22 1242 [facility] Work Phone: Progress note Author Carmela Sewell [facility] June 16, 2022 8:34am Note Date/Time June 16, 2022 8: 30am [facility] [place] [id number] Hem/Onc Follow Up Note - OP Signed Patient: Eneida Mejia MR#: [id number] : 1975 Acct:[id number] Age/Sex: 47 / F Type: REG RCR Copies to: DO Rosalba Rodriguez BUSINESS OFFICE REPRESENTATIVE, POWER SYSTEM ENGINEER~ Subjective Date/Time of Service: Date of Service: 06/16/2022 Time of Service: 08:28 Chief Complaint: Patient is here for a 6 month follow up for left breast cancer with mammogram for review. No concerns voiced. HPI: 06/16/2022: Weston has no new complaints. Notes that she has some allergies sincerecently getting a new rescue dog and thinks she has some sensitivity. She may use any vzkn-tra-cepffok nondrowsy allergy medicine such as Claritin or [...] follow-up with her in 6 months with BIO MEDICAL TECHNICIAN exam. [facility] 20-minute follow-up visit. 12/16/2021: Eneida presents [...] social Social History Comments: works with a [employer] and [employer] one son. Home Medications & Allergies Allergies [...] Staging: Left breast moderate differentiated (Grade 2, [place] score 7) pT2 (22mm), pN0, M0--ER +90%, WY+ 95%, Her2 equivocal IHC/negative FISH. Oncotype Dx [...] of significant medication interactions between tamoxifen and vbln-acu-xsxmuqm allergy medicines. Her mammogram and exam showed [...] for coordination of care (as documented) and vfik-qw-ygbz counseling of patient and/or family. Dictated By: Carmela Sewell MD DD/ Signed By: <Electronically signed by MD Carmela Sewell> 06/16/22 0834 [facility] Work Phone: Progress note No data available for this section [facility] reason for referral (narrative)No reason for referral [facility] Work Phone: Summary Purpose Family History [...] Encounter for smoking cessation counseling Tobacco dependence [id number] Encounter for monitoring tamoxifen therapy Noncompliance with diagnostic testing Noncompliance with medication regimen Chief Complaint M25.572 Chief Complaint M25.572 Fracture Chief Complaint M25.572 S82.832A Fracture Chief Complaint Z98.89 Z87.81 Chief Complaint Admit Date Unknown January 03, 2025 10:5 2am Additional Source Comments INFORMATION SOURCE (unrecogn ized section and content) DATE CREATED AUTHOR 10/22/2018 [facility] DATE CREATED AUTHOR AUTHOR'S ORGANIZ ATION 11/07/2020 [facility] DATE CREATED AUTHOR AUTHOR'S ORGANIZ ATION 03/11/2024 [facility] DATE CREATED AUTHOR AUTHOR'S ORGANIZ ATION 01/06/2025 [facility] DATE CREATED AUTHOR AUTHOR'S ORGANIZ ATION 03/21/2025 [facility] Care Teams (unrecognized sec tion and content) Team Status: Active Member Role Status Dates Rosalba Adorno APRN BIO MEDICAL TECHNICIAN-C Primary Care Provider Acti ve Tomi Salas DO Referring Provider Active Carmela Sewell MD Attending Provider Active Team Status: Active Member Role Status Dates Rosalba Adorno APRN BIO MEDICAL TECHNICIAN-C Primary Care Provider Acti ve Team Status: Inactive Member Role Status Dates Rosalba Adorno APRN BIO MEDICAL TECHNICIAN-C Primary Care Provider Acti ve Rosalba Cuevas NP-C Attending Provider Active Team Status: Inactive Member Role Status Dates Rosalba Adorno APRN [employer] TECHNICIAN-C Primary Care Provider Acti ve Rodrigo Hernandez DO Attending Provider Active Team Status: Inactive Member Role Status Dates Rosalba Adorno APRN [employer] TECHNICIAN-C Primary Care Provider Acti ve Start: May 03, 2023 End: May 03, 2023 Rodrigo Hernandez DO Attending Provider Active St art: May 03, 2023 End: May 03, 2023 Team Status: Inactive Member Role Status Dates Rosalba Adorno APRN [employer] TECHNICIAN-C Primary Care Provider Acti ve Start: January 03, 2025 End: January 03, 2025 Arnold Tolliver MD Attending Provider Active Start : January 03, 2025 End: January 03, 2025 Goals (unrecognized section and content) Goals may be documented in a n alternate sectionGoals may be documented in an alternate sectionGoals may be documented in an alternate sectionNo InformationNo InformationNo InformationNo InformationNo InformationGoals may be documented in an alternate sectionGoals may be documented in an alternate section No data available for this section REASON FOR VISIT (unrecogniz ed section and content) Left Ankle InjuryRecheck Lef t [id number] Visit Post Op Left AnkleRecheck Left AnkleRecheck [...] BE BASED ON THE PRIMARY CLINICAL RECORDS. [employer] provides no warranty or guarantee of the accuracy or completeness of information in this document.
[2025-03-21 10:19] LABS: Ammonia 36 umol/L (11-32)
[2025-03-21 10:24] LABS: Hematocrit 30.5 % (36.0-48.0); Hemoglobin 10.3 g/dL (12.0-16.0); Mean Corpuscular HGB Conc 33.8 g/dL (29.9-35.2); Mean Corpuscular Hemoglobin 38.1 pg (26.7-34.0); Mean Corpuscular Volume 113.0 fL (81.0-99.0); Platelet Count 404 10^3/uL (150-450); Red Blood Count 2.70 10^6/uL (4.20-5.40); White Blood Count 14.0 10^3/uL (4.0-11.0)
[2025-03-21 10:32] LABS: INR 1.09; Partial Thromboplastin Time 30.2 sec (22.3-36.2); Prothrombin Time 11.5 sec (9.0-11.6)
[2025-03-21 10:35] LABS: Alanine Aminotransferase 119 U/L (14-59); Albumin Globulin Ratio 0.5; Albumin Level 2.6 g/dL (3.4-5.0); Alkaline Phosphatase 385 U/L (46-116); Amylase 43 U/L (25-115); Anion Gap 14.7; Aspartate Amino Transferase 249 U/L (15-37); Blood Urea Nitrogen 9.0 mg/dL (7.0-18.0); Calcium 9.6 mg/dL (8.5-10.1); Carbon Dioxide 29.4 mmol/L (21.0-32.0); Chloride 89 mmol/L (98-107); Cholesterol 476 mg/dL (<=200); Estimated GFR (African America >60 (>=60 mL/min/1.73m^2); Estimated GFR (Non-African Ame >60 (>=60 mL/min/1.73m^2); Free T3 2.28 pg/mL (2.18-3.98); Globulin 5.4 g/dL; Glucose 138 mg/dL (74-106); HDL Cholesterol 13 mg/dL (40-60); Lipase 30.0 U/L (16.0-77.0); Potassium 3.1 mmol/L (3.5-5.1); Sodium 130 mmol/L (136-145); Thyroid Stimulating Hormone 1.542 uIU/mL (0.358-3.740); Total Protein 8.0 g/dL (6.4-8.2); Triglycerides 241 mg/dL (<=150); VLDL CHOLESTEROL 48.2 mg/dL
[2025-03-21 11:06] LABS: Iron 78.0 ug/dL (50.0-170.0)
[2025-03-21 12:35] LABS: Band Neutrophils Absolute 0.3 10^3/uL (0.0-0.3); Basophils Abs Manual 0.14 10^3/uL (0.00-0.10); Basophils Percent Manual 1.0 % (0.2-2.0); Eosinophils Absolute Manual 0.28 10^3/uL (0.00-0.70); Eosinophils Percent Manual 2.0 % (0.9-7.0); Lymphocytes Absolute Manual 0.98 10^3/uL (1.20-3.80); Lymphocytes Percent Manual 7.0 % (20.5-60.0); Monocytes Absolute Manual 0.42 10^3/uL (0.30-0.80); Monocytes Percent Manual 3.0 % (1.7-12.0); Segmented Neut Absolute Manual 11.90 10^3/uL (1.4-6.5); Segmented Neutrophils % Manual 85.0 (43.0-75.0)
[2025-03-21 12:37] LABS: Anisocytosis 1+
[2025-03-21 12:38] LABS: Hypochromasia 1+; Macrocytosis 2+
== END 2025-03-21 09:43 | disposition home or self-care (01) ==
PROVIDERS: PCP Family Medicine; Visit Provider Family Medicine
DX: R11.10 Vomiting, unspecified (principal); R10.9 Unspecified abdominal pain
CPT/HCPCS: 36415; 80053; 80061; 82140; 82150; 83036; 83540; 83690; 84436; 84443; 84481; 85007; 85027; 85610; 85730

== ENCOUNTER 2025-03-22 11:17 | Emergency (ER) | payer OTHER, SELFPAY ==
[2025-03-22] VITALS (30 sets, daily range): BP systolic 96–124; BP diastolic 64–76; PULSE 101; TEMP 37.3; O2SAT 95–100; BMI 18.6
--- OUTSIDE RECORDS SUMMARY | 2025-03-22 11:24 | XMS_ITS | CCD ---
Author Organization [facility] Care Team Providers Care Cartridge Maker Name Role Phone MORGAN, RAJENDER K Attending Unavailable Rosalba Adorno Primary Care Unavailable MORGAN, RAJENDER K Attending Unavailable Rosalba Adorno K Primary Care Unavailable MORGAN, RAJENDER K Attending Unavailable Rosalba Adorno K Primary Care Unavailable MORGAN, RAJENDER K Attending Unavailable Rosalba Adorno K Primary Care Unavailable MORGAN, RAJENDER K Attending Unavailable Rosalba Adorno K Primary Care Unavailable MORGAN, RAJENDER K Attending Unavailable Roaslba Adorno K Primary Care Unavailable MORGAN, RAJENDER [...] Care Unavailable MORGAN, RAJENDER K Attending Unavailable Hamelany, Rosalba K Primary Care Unavailable MORGAN, RAJENDER [...] Admitting Unavailable BILL Adorno Primary Care Provider [phone] DO Tomi Salas Referring Provider MD Carmela Sewell Attending Provider [phone] BILL Adorno Primary Care Provider DO Tomi Salas Referring Provider MD Carmela Sewell Attending Provider [phone] BILL Adorno Primary Care Provider LOUANN Cuevas Attending Provider [phone] Rosalba Cuevas Unavailable DO Rodrigo Hernandez Attending Provider Rodrigo Hernandez Unavailable BILL Adorno Primary Care Provider [phone] DO Rodrigo Hernandez Attending Provider [phone] MARJORIE WOLF Attending Unavailable NO PCP, NO PCP Primary Care Unavailable MARJORIE WOLF Attending Unavailable MARJORIE WOLF Referring Unavailable NO PCP, NO PCP Primary Care Unavailable Rosalba Adorno APRN Primary Care Provider [phone] Sharee MD, Arnold Attending Provider [phone] Rosalba Adorno Primary Care Unavailable Arnodl Tolliver Attending Unavailable Arnold Tolliver Admitting Unavailable Sudhir Gonzalez Primary Care Physician Julia Ramirez Attending Unavailable Allergies Allergy Classification Reported Allergen(s) Allergy Type Date of Onset Reaction(s) Facility Opioid Agonists (1 source) Morphine Drug Allergy [address] [facility] Repository (14 sources) Morphine; Translations: [morphine] Drug Allergy 2 Persistent erythema (finding) [facility] (7 sources) band aid adhesive Allergy to substance [address] [facility] Medications Current Medications Medication Drug [...] 2019 1:00am April 28, 2021 3:27pm Hyaluronic Ir-Spndainxt-Vlgd (Radiaplexrx) Gel (7 sources) Start: 09-13-2018 End: 11-08-2018 Hyaluronic Rg-Cbeahibqx-Yfqf (Radiaplexrx) Gel Discontinued 1 [facility]ICAL Three times daily September 13, 2018 12:00am November 08, 2018 8:32am Start: 09-13-2018 End: 11-08-2018 Hyaluronic Xb-Lsgdvulvt-Aovp (Radiaplexrx) Gel Discontinued 1 APPLIC TOPICAL Three [...] Provider Letter March 18, 20[address] [place] [phone] : 1975 Dear Eneida, We have been [...] to this matter. Sincerely, [facility] [address] [place] [address] [place] [address] [facility] Reminderson 03-18-2025 Reminders Reminders From: Katalina Oshea To: EU - Administrative; Sent: 01/16/2025 09:48:19 EDT Show up: 02/15/2025 09:48:00 EDT Subject: 3 month F/U Due Date/Time: 04/17/2025 09:48:00 EST Reminder/Recall Patient needs scheduled for a 3 month F/U with UA with LT in [place], due back early April LVM to call back to schedule appointment Unable to leave , mailing damari [facility] Provider Letteron 03-07-2025 Provider Letter Provider Letter March 07, 2025 E[address]IDA [address]JIA [address] [place] [phone] : 1975 Dear Eneida, We have been [...] to this matter. Sincerely, [facility] [address] [place] [address] [facility] Urology Office/Clinic Noteon 01-16-2025 Urology Office/Clinic Note Urology Office/Clinic Note Chief Complaint new pt here for henaturia HPI Staff 49 year old female new patient refer for hematuria Pt was seen at [facility] ER X2 and was told that [...] no acute distress. 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 Asymptomatic microscopic hematuria (R31.21: Asymptomatic microscopic hematuria) [facility] ED 01/03/25 - c/o N/V. Workup [...] Urnls Dip Stick Auto w/o Microscopy POC [id number] Follow-up With When Contact Information Julia Ramirez [...] Protein Urine Dipstick: Negative (01/16/25 09:03:00) Specific Hustler Urine Dipstick: 1.015 (01/16/25 09:03:00) Urine Appearance Urine Dipstick: Cloudy (01/16/25 09:03:00) Urine Color Urine Dipstick: Light yellow (01/16/25 09:03:00) Urobilinogen Urine Dipstick: Normal 0.2-1 EU/dl (01/16/25 09:03:00) pH Urine Dipstick: 6 (01/16/25 09:03:00) Normal [facility] Comment on above: Result Comment: Elec tronically Signed By: Ashley FORTUNE, Julia\.br\Date and Time Signed: 01/16/25 09:50 EDT Urine Cultureon 01-03-2025 Bacteria identified Cx Nom (U) >100,000 colonies/ml mixed bacterial skin contaminants 2 Days PERFORMED BY: [place] [address] PATHOLOGIST INCINERATOR OPERATOR LANA GONZALEZ M.D. Normal [facility] Comment on above: Performed By: #### C UU #### [address] BLOOD CULTUREon 03-04-2024 Bacteria identified Aer cx Nom (Bld) SPECIMEN NOTES SUBOPTIMAL VOLUME OF BLOOD COLLECTED, RESULTS MAY BE AFFECTED. CULTURE RESULTS NO GROWTH 5 DAYS Normal [facility] Comment on above: Performed By: #### C LIAM, CBCA, 31490-4 #### [facility] ([id number]) [address] [place] [address] [place] [address] Bacteria identified Aer cx Nom (Bld) CULTURE RESULTS NO GROWTH 5 DAYS Normal [facility] CBC AND AUTO DIFFon 03-04-20 24 ABSOLUTE BASOPHIL 0.0 X10E9/L Normal 0.0-0.2 [facility] Comment on above: Performed By: #### C LIAM, CBCA, 40986-0 #### [facility] ([id number]) [address] [place] [address] 22671 ABSOLUTE NEUTROPHIL 6.6 X10E9/L Normal 1.5-6.[address] [facility] Comment on above: Performed By: #### C LIAM, CBCA, 64153-7 #### [facility] ([id number]) [address] [place] [address] 89467 Basophils/100 WBC (Bld) 0.6 % Normal [facility] Comment on above: Performed By: #### C LIAM, CBCA, 57050-0 #### [facility] ([id number]) [address] [place] [address] 80361 Eosinophils (Bld) [#/Vol] 0.1 10*3/uL Normal 0.0-0.4 [facility] Comment on above: Performed By: #### C LIAM, CBCA, 31062-2 #### [facility] ([id number]) [address] [place] [address] 29632 Eosinophils/100 WBC (Bld) 1.4 % Normal [facility] Comment on above: Performed By: #### C LIAM, CBCA, 32590-4 #### [facility] ([id number]) [address] [place] [address] 32535 Erythrocyte distribution width (RBC) [Ratio] 20.0 % High 11.5-15.0 [facility] Comment on above: Performed By: #### C LIAM CBCA, 87604-2 #### [facility] ([id number]) [address] [place] [address] 69245 Hematocrit (Bld) [Volume fraction] 29.1 % Low 35-47 [facility] Comment on above: Performed By: #### C LIAM CBCKarley, 65112-8 #### [facility] ([id number]) [address] [place] [address] 22287 Hemoglobin (Bld) [Mass/Vol] 9.7 g/dL Low 11.7-15.5 [facility] Comment on above: Performed By: #### C LIAM CBCKarley, 20264-3 #### [facility] ([id number]) [address] [place] [address] 81847 Lymphocytes (Bld) [#/Vol] 0.7 10*3/uL Low 1.0-3.5 [facility] Comment on above: Performed By: #### C LIAM CBCA, 26756-3 #### [facility] ([id number]) [address] [place] [address] 96911 Lymphocytes/100 WBC (Bld) 8.3 % Normal [facility] Comment on above: Performed By: #### C LIAM CBCA, 43286-2 #### [facility] ([id number]) [address] [place] [address] 85973 MCH (RBC) [Entitic mass] 32.7 pg Normal 27-34 [facility] Comment on above: Performed By: #### C LIAM CBCA, 97146-5 #### [facility] ([id number]) [address] [place] [address] 45800 MCHC (RBC) [Mass/Vol] 33.3 g/dL Normal 32-36 [facility] Comment on above: Performed By: #### C LIAM CBCA, 10165-4 #### [facility] ([id number]) [address] [place] [address] 77874 MCV (RBC) [Entitic vol] 98 fL Normal 80-100 [facility] Comment on above: Performed By: #### C LIAM CBCA, 36742-7 #### [facility] ([id number]) [address] [place] [address] 30604 Monocytes (Bld) [#/Vol] 0.9 10*3/uL Normal 0-0.9 [facility] Comment on above: Performed By: #### C LIAM CBCA, 96295-4 #### [facility] ([id number]) [address] [place] [address] 90433 Monocytes/100 WBC (Bld) 10.9 % Normal [facility] Comment on above: Performed By: #### C LIAM CBCA, 43153-1 #### [facility] ([id number]) [address] [place] [address] 62070 Neutrophils/100 WBC (Bld) 78.8 % Normal [facility] Comment on above: Performed By: #### C LIAM CBCA, 13758-3 #### [facility] ([id number]) [address] [place] [address] 14429 Platelet mean volume (Bld) [Entitic vol] 8.7 fL Normal 7-12 [facility] Comment on above: Performed By: #### C LIAM CBCA, 45557-0 #### [facility] ([id number]) [address] [place] [address] 25173 Platelets (Bld) [#/Vol] 303 10*3/uL Normal 150-450 [facility] Comment on above: Performed By: #### C BENJAMIN WHEELER, 69560-6 #### [facility] ([id number]) [address] [place] [address] 71483 RBC COUNT 2.96 X10E12/L Low 3.80-5.20 [facility] Comment on above: Performed By: #### C BENJAMIN WHEELER, 45657-6 #### [facility] ([id number]) [address] [place] [address] 34097 WBC (Bld) [#/Vol] 8.4 10*3/uL Normal 4.0-11.0 [facility] Comment on above: Performed By: #### C BENJAMIN WHEELER, 48161-1 #### [facility] ([id number]) [address] [place] [address] 87559 COMPREHENSIVE METABOLIC PANE Clarence 03-04-2024 Albumin [Mass/Vol] 3.0 g/dL Low 3.2-5.3 [facility] Comment on above: Performed By: #### C BENJAMIN WHEELER, 22072-3 #### [facility] ([id number]) [address] [place] [address] 29533 ALP [Catalytic activity/Vol] 109 U/L Normal 39-130 [facility] Comment on above: Performed By: #### C BENJAMIN WHEELER, 10975-1 #### [facility] ([id number]) [address] [place] [address] 55248 ALT [Catalytic activity/Vol] 33 U/L High 0-31 [facility] Comment on above: Performed By: #### C BENJAMIN WHEELER, 07925-9 #### [facility] ([id number]) [address] [place] [address] 39933 Anion gap [Moles/Vol] 9 mmol/L Normal 5-15 [facility] Comment on above: Performed By: #### C JULIO WHEELERA, 60119-1 #### [facility] ([id number]) [address] [place] [address] [place] [address] AST [Catalytic activity/Vol] 77 U/L High 0-41 [facility] Comment on above: Performed By: #### C LIAM CBCA, 12083-7 #### [facility] ([id number]) [address] [place] [address] [place] [address] Bilirubin [Mass/Vol] 0.2 mg/dL Low 0.3-1.[address] [facility] Comment on above: Performed By: #### C LIAM CBCA, 47094-2 #### [facility] ([id number]) [address] [place] [address] 34181 Calcium [Mass/Vol] 7.4 mg/dL Low 8.5-10.5 [facility] Comment on above: Performed By: #### C LIAM CBCA, 97010-5 #### [facility] ([id number]) [address] [place] [address] 72971 Chloride [Moles/Vol] 98 mmol/L Normal 98-[address] [facility] Comment on above: Performed By: #### C BENJAMIN WHEELER, 80697-0 #### [facility] ([id number]) [address] [place] [address] [place] [address] CO2 [Moles/Vol] 27 mmol/L Normal 22-32 [facility] Comment on above: Performed By: #### C LIAM CBCA, 49756-4 #### [facility] ([id number]) [address] [place] [address] [place] [address] Creatinine [Mass/Vol] 0.48 mg/dL Normal 0.40-1.00 [facility] Comment on above: Result Comment: METH OD TRACEABLE TO IDMS STANDARD Performed By: #### C LIAM CBCKarley 05150-6 #### [facility] ([id number]) [address] [place] [address] 09617 eGFR (CKD-EPI) NON-RACE DEPENDENT >90 Normal >59 [facility] Comment on above: Result Comment: Reported eGFR is based on the CKD-EPI 2021 equation that does not use a race coefficient. Performed By: #### C BENJAMIN WHEELER, 69168-5 #### [facility] ([id number]) [address] [place] [address] 57888 Glucose [Mass/Vol] 130 mg/dL High 65-99 [facility] Comment on above: Performed By: #### C BENJAMIN WHEELER, 85640-5 #### [facility] ([id number]) [address] [place] [address] 37037 Potassium [Moles/Vol] 2.9 mmol/L Low 3.5-5.0 [facility] Comment on above: Performed By: #### C BENJAMIN WHEELER, 12795-2 #### [facility] ([id number]) [address] [place] [address] 35560 Protein [Mass/Vol] 6.3 g/dL Normal 6.0-8.0 [facility] Comment on above: Performed By: #### C BENJAMIN WHEELER, 14237-8 #### [facility] ([id number]) [address] [place] [address] 67600 Sodium [Moles/Vol] 134 mmol/L Normal 134-146 [facility] Comment on above: Performed By: #### C BENJAMIN WHEELER, 75016-7 #### [facility] ([id number]) [address] [place] [address] 82293 Urea nitrogen [Mass/Vol] 5 mg/dL Normal 5-23 [facility] Comment on above: Performed By: #### C BENJAMIN WHEELER, 41790-0 #### [facility] ([id number]) [address] [place] [address]RA[address] CONT[address] BRAIN WO [...] Jimmy Weiner on 03/04/2024 5:54 PM Normal [facility] HCG ( test) Ql (U)o n 03-04-2024 Beta HCG ( test) Ql (U) Negative Normal NEG [facility] Comment on above: Performed By: #### 2 106-3 #### [facility] ([id number]) [address] [place] [address] 12877 Lactate (P alexander) [Moles/Vol]o n 03-04-2024 LACTATE W/REFLEX 2.1 mmol/L High 0.4-2.0 [facility] Comment on above: Performed By: #### 3 2133-1 #### [facility] ([id number]) [address] [place] [address] 13188 MAGNESIUMon 03-04-2024 Magnesium [Mass/Vol] 1.3 mg/dL Low 1.8-2.[address] [facility] Comment on above: Performed By: #### 8 9579-7, 06757-7 #### [facility] ([id number]) [address] [place] [address], [place] [address] Troponin I.cardiac High sens itivity method [Mass/Vol]on 03-04-2024 1 HOUR TROP I, HIGH SENSITIVITY 8 ng/L Normal <16 [facility] Comment on above: Performed By: #### 8 9579-7, 32508-7 #### [facility] ([id number]) [address] [place] [address], [place] [address] TROPONIN I, HIGH SENSITIVITY 5 ng/L Normal <16 [facility] Comment on above: Performed By: #### C LIAM, CBCA, 44931-2 #### [facility] ([id number]) [address] [place] [address], [place] [address] URINE CULTUREon 03-04-2024 Bacteria identified Cx Nom (U) CULTURE RESULTS NO GROWTH AT <1000 CFU/mL Normal [facility] Comment on above: Performed By: #### C LIAM, CBCA, 16834-7 #### [facility] ([id number]) [address] [place] [address], [place] [address] URN MACROSCOPIC NURon 2023 BILIRUBIN RAYSA Negative Normal NEG [facility] Comment on above: Performed By: #### N UM #### [facility] ([id number]) [address] [place] [address], [place] [address] BLOOD/HGB RAYSA Trace Abnormal NEG [facility] Comment on above: Performed By: #### N UM #### [facility] ([id number]) [address] [place] [address], [place] [address] GLUCOSE RAYSA Negative Normal NEG [facility] Comment on above: Performed By: #### N UM #### [facility] ([id number]) [address] [place] [address], [place] [address] KETONES RAYSA Negative Normal NEG [facility] Comment on above: Performed By: #### N UM #### [facility] ([id number]) [address] [place] [address] 92962 LEUKOCYTE ESTERASE RAYSA Negative Normal NEG [facility] Comment on above: Performed By: #### N UM #### [facility] ([id number]) [address] [place] [address] 15633 NITRITE RAYSA Negative Normal NEG [facility] Comment on above: Performed By: #### N UM #### [facility] ([id number]) [address] [place] [address] 13420 PH RAYSA 7.0 Normal 5.0-8.5 [facility] Comment on above: Performed By: #### N UM #### [facility] ([id number]) [address] [place] [address] 24176 PROTEIN RAYSA Negative Normal NEG [facility] Comment on above: Performed By: #### N UM #### [facility] ([id number]) [address] [place] [address] 10408 SPECIFIC GRAVITY RAYSA 1.010 Normal 1.003-1.035 [facility] Comment on above: Performed By: #### N UM #### [facility] ([id number]) [address] [place] [address] 10367 UROBILINOGEN RAYSA 0.2 eu/dL Normal <1.1 [facility] Comment on above: Performed By: #### N UM #### [facility] ([id number]) [address] [place] [address] 02348 XR ankle LT min 3V*on 2022 XR ankle LT min 3V* [facility] [employer] Other XR ankle LT min 3V* [facility] [employer] Other XR ankle LT min 3V* [address] [place] [address] [employer] Other XR ankle LT min 3V* [place] [address] [employer] Other XR ankle LT min 3V* XRay Report Nort [facility] Other XR ankle LT min 3V* Signed [facility] Other XR ankle LT min 3V* Patient: Raghavendra Mejia MR#: [id number] [facility] Other XR ankle LT min 3V* 970 [employer] Other XR ankle LT min 3V* : 1975 Acct:[id number] [facility] Other XR ankle LT min 3V* Age/Sex: 47 / F ADM Date: 04/05/23 [facility] Other XR ankle LT min 3V* Loc[place] [facility] [place]: Type : [facility] Other XR ankle LT min 3V* Attending Dr: Rodrigo Hernandez DO [facility] Other XR ankle LT min 3V* Copies to: Rodrigo Hernandez DO [facility] Other XR ankle LT min 3V* Ordering Provider: Rodrigo Hernandez DO [facility] Other XR ankle LT min 3V* Date of Service: 04/05/23 [facility] Other XR ankle LT min 3V* XR/XR ankle LT min 3V*: Other specified postprocedural states;Personal [facility] Other XR ankle LT min 3V* history of (h No rt [facility] [facility] Other XR ankle LT min 3V* LEFT ANKLE - 3 views [facility] Other XR ankle LT min 3V* CLINICAL DATA: Follow-up distal fibular fracture [facility] Other XR ankle LT min 3V* COMPARISON: 03/24/20 23 AND 03/25/2023 (INTRAOPERATIVE) [facility] Other XR ankle LT min 3V* AP, lateral and oblique views were obtained. There is artifact from a posterior splint. There is [facility] Other XR ankle LT min 3V* redemonstration of a lateral plate and multiple screws at the distal fibula. The underlying [facility] Other XR ankle LT min 3V* fractures not well seen and there is no change in alignment. There is no new fracture or [facility] Other XR ankle LT min 3V* dislocation. There a re no significant soft tissue abnormalities. [facility] Other XR ankle LT min 3V* XR/XR ankle LT min 3V* [facility] Other XR ankle LT min 3V* IMPRESSION: Nort [facility] Other XR ankle LT min 3V* STABLE DISTAL FIBULA R FRACTURE AND FIXATION HARDWARE. [facility] Other XR ankle LT min 3V* Impression dictated by: May Sneed M.D.04/05/2023 1:26 PM [facility] Other XR ankle LT min 3V* Dictation Location: [place] [address] [employer] Other XR ankle LT min 3V* Transcribed By: REE 04/05/23 1326 [facility] Other XR ankle LT min 3V* Dictated By: May Sneed MD 04/05/23 1324 [facility] Other XR ankle LT min 3V* Signed By: [facility] Other XR ankle LT min 3V* 04/05/23 1326 No rt [facility] Other HCG ( test) IAmatilda oneil Ql (U)Ordered By: Reji Oscar on 03-25-2023 HCG ( test) Ql (U) Negative [facility] XR ankle LT min 3V*on 2022 XR ankle LT min 3V* [facility] [employer] Other XR ankle LT min 3V* [facility] Other XR ankle LT min 3V* [address] [facility] Other XR ankle LT min 3V* [place] [address] [employer] Other XR ankle LT min 3V* XRay Report Nort [facility] [employer] [facility] Other XR ankle LT min 3V* Signed [facility] Other XR ankle LT min 3V* Patient: Raghavendra Mejia MR#: [id number] [facility] Other XR ankle LT min 3V* 970 [employer] Other XR ankle LT min 3V* : 1975 Acct:[id number] [facility] Other XR ankle LT min 3V* Age/Sex: 47 / F ADM Date: 03/18/23 [facility] Other XR ankle LT min 3V* Loc: [facility] [place]: Type : REG CLI [facility] Other XR ankle LT min 3V* Attending Dr: Lori LEW [facility] Other XR ankle LT min 3V* Copies to: ALEXIS Encarnacion [facility] Other XR ankle LT min 3V* Ordering Provider: ALEXIS Encarnacion [facility] Other XR ankle LT min 3V* Date of Service: 03/18/23 [facility] Other XR ankle LT min 3V* XR/XR ankle LT min 3V*: PAIN [facility] Other XR ankle LT min 3V* LEFT ANKLE - 3 views [facility] Other XR ankle LT min 3V* CLINICAL DATA: Later al left ankle pain for the past day. No specific injury. [facility] Other XR ankle LT min 3V* COMPARISON: None [facility] Other XR ankle LT min 3V* AP, lateral and oblique views were obtained. An oblique is present at the distal fibular [facility] Other XR ankle LT min 3V* metaphysis. This is not significantly displaced. No other fractures or dislocation are noted. The [facility] Other XR ankle LT min 3V* talar dome is intact . There is mild lateral soft tissue swelling. [facility] Other XR ankle LT min 3V* XR/XR ankle LT min 3V* [facility] Other XR ankle LT min 3V* IMPRESSION: Nort [employer] Other XR ankle LT min 3V* LATERAL MALLEOLAR FRACTURE. [facility] Other XR ankle LT min 3V* Impression dictated by: May Sneed M.D.03/18/2023 9:30 AM [facility] Other XR ankle LT min 3V* Dictation Location: [facility] Other XR ankle LT min 3V* Transcribed By: REE 03/18/23929 [facility] Other XR ankle LT min 3V* Dictated By: May Sneed MD 03/18/2328 [facility] Other XR ankle LT min 3V* Signed By: [facility] Other XR ankle LT min 3V* 03/18/23 0930 [facility] Other HCG ( test) Oksanai d Ql (U)on 08-31-2018 HCG ( test) Ql (U) Negative Negative [facility] Urine culture routineon 06-13 Bacteria identified Cx Nom (U) [address] [facility] Albumin [Mass/volume] in Ser um or Plasmaon 06-21-2018 Albumin [Mass/Vol] 4.1 g/dL 3.2-5.5 [facility] Automated erythrocytes count in urine sediment (number/area)on 06-21-2018 RBC Auto (Urine sed) [#/Area] 5-9 [HPF] 0-[address] [facility] Automated leukocytes count i n urine sediment (number/area)on 06-21-2018 WBC Auto (Urine sed) [#/Area] 5-9 [HPF] 0-[address] [facility] Basophils Auto (Bld) [#/Vol] on 06-21-2018 Basophils (Bld) [#/Vol] 0.0 10*3/uL 0.0-0.[address] [facility] Basophils/100 WBC Auto (Bld) on 06-21-2018 Basophils/100 WBC (Bld) 0.7 % . [facility] Bilirubin Test strip Ql (U)o n 06-21-2018 Bilirubin Ql (U) Negative Negative [facility] Cholesterol [Mass/volume] in Serum or Plasmaon 06-21-2018 Cholesterol [Mass/Vol] 188 mg/dL 140-[address] [facility] Comment on above: Chol less than 200 m g/dl low riskChol 201-239 mg/dl borderline riskChol 240 mg/dl and greater high risk Cholesterol in LDL Calc [Mas s/Vol]on 06-21-2018 Cholesterol in LDL [Mass/Vol] 81 mg/dL 0-[address] [facility] Comment on above: LDL ATP III CLASSIFI CATIONLDL less than 100 mg/dL OptimalLDL 100-129 mg/dL Near or above optimalLDL 130-159 mg/dL Borderline highLDL 160-189 mg/dL HighLDL greater than 189 mg/dL Very high Cholesterol in VLDL Calc [Ma ss/Vol]on 06-21-2018 Cholesterol in VLDL [Mass/Vol] 11 mg/dL [facility] Color Auto (U)on 06-21-2018 Color (U) Yellow Yellow [facility] Creatinine and Glomerular fi ltration rate.predicted panel (S/P/Bld)on 06-21-2018 Creatinine [Mass/Vol] 0.63 mg/dL 0.44-1.[address] [facility] Eosinophils Auto (Bld) [#/Vo l]on 06-21-2018 Eosinophils (Bld) [#/Vol] 0.0 10*3/uL 0.0-0.[address] [facility] Eosinophils/100 WBC Auto (Bl d)on 06-21-2018 Eosinophils/100 WBC (Bld) 0.9 % . [facility] Erythrocyte distribution wid th Auto (RBC) [Ratio]on 06-21-2018 Erythrocyte distribution width (RBC) [Ratio] 12.2 % 11.9-15.[address] [facility] Estimated glomerular filtrat ion rate (GFR) non- Americanon 06-21-2018 GFR/1.73 sq M.predicted among non-blacks MDRD (S/P/Bld) [Vol rate/Area] mL/min/{1.73_m2} [facility] Globulin Calc (S) [Mass/Vol] on 06-21-2018 Globulin (S) [Mass/Vol] 2.8 g/dL [facility] Glucose mean value [Mass/vol ume] in Blood Estimated from glycated hemoglobinon 06-21-2018 Average glucose Estimated from glycated hemoglobin (Bld) [Mass/Vol] 100 mg/dL [facility] HbA1c (Bld)on 06-21-2018 HbA1c (Bld) [Mass fraction] 5.1 % 4.3-5.[address] [facility] Comment on above: Increased risk for d iabetes: 5.7 - 6.4diabetes: >6.4glycemic control for adults with diabetes: <7.0 Hematocrit Auto (Bld) [Volum e fraction]on 06-21-2018 Hematocrit (Bld) [Volume fraction] 39.8 % 34.0-46.[address] [facility] Hemoglobin [Mass/volume] in Bloodon 06-21-2018 Hemoglobin (Bld) [Mass/Vol] 13.4 g/dL 11.8-15.[address] [facility] Ketones Auto test strip (U) [Mass/Vol]on 06-21-2018 Ketones (U) [Mass/Vol] Negative Negative [facility] Laboratory - Chemistry and C hemistry - challengeon 06-21-2018 Cholesterol.total/Ch olesterol in HDL [Mass ratio] 2.0 {ratio} <5.[address] [facility] GFR/1.73 sq M.predicted among blacks MDRD (S/P/Bld) [Vol rate/Area] mL/min/{1.73_m2} [facility] Comment on above: GFR estimated refere nce range: According to KDOQI guidelines, <60 ml/min/1.73m2 is sufficient to diagnose a patient with chronic kidney disease. Laboratory - Urinalysison Hyaline casts LM Ql (Urine sed) 0-8 [LPF] 0-[address] [facility] Leukocytes [#/volume] in Blo od by Automated counton 06-21-2018 WBC (Bld) [#/Vol] 4.9 10*3/uL 4.5-11.0 [facility] Lymphocytes Auto (Bld) [#/Vo l]on 06-21-2018 Lymphocytes (Bld) [#/Vol] 1.0 10*3/uL 1.00-4.[address] [facility] Lymphocytes/100 WBC Auto (Bl d)on 06-21-2018 Lymphocytes/100 WBC (Bld) 21.2 % . [facility] MCH Auto (RBC) [Entitic mass ]on 06-21-2018 MCH (RBC) [Entitic mass] 33.4 pg 24.7-34.[address] [facility] MCHC Auto (RBC) [Mass/Vol]on 06-21-2018 MCHC (RBC) [Mass/Vol] 33.7 g/dL 32.0-35.[address] [facility] MCV Auto (RBC) [Entitic vol] on 06-21-2018 MCV (RBC) [Entitic vol] 98.8 fL 80-[address] [facility] Monocytes Auto (Bld) [#/Vol] on 06-21-2018 Monocytes (Bld) [#/Vol] 0.4 10*3/uL 0.0-0.[address] [facility] Monocytes/100 WBC Auto (Bld) on 06-21-2018 Monocytes/100 WBC (Bld) 7.5 % . [facility] Neutrophils Auto (Bld) [#/Vo l]on 06-21-2018 Neutrophils (Bld) [#/Vol] 3.4 10*3/uL 1.8-7.[address] [facility] Neutrophils/100 WBC Auto (Bl d)on 06-21-2018 Neutrophils/100 WBC (Bld) 69.7 % . [facility] Nitrite Test strip Ql (U)on 06-21-2018 Nitrite Ql (U) Negative Negative [facility] No Panel Informationon 06-21 Pharmacy Creatinine Clearance (Chem N/A [facility] Platelet mean volume Auto (B ld) [Entitic vol]on 06-21-2018 Platelet mean volume (Bld) [Entitic vol] 8.0 fL 6.3-10.[address] [facility] Platelets Auto (Bld) [#/Vol] on 06-21-2018 Platelets (Bld) [#/Vol] 216 10*3/uL 150-[address] [facility] Protein Auto test strip (U) [Mass/Vol]on 06-21-2018 Protein (U) [Mass/Vol] Negative Negative [facility] Protein [Mass/volume] in Ser um or Plasmaon 06-21-2018 Protein [Mass/Vol] 6.9 g/dL 6.1-7.9 [facility] RBC Auto (Bld) [#/Vol]on RBC (Bld) [#/Vol] 4.03 10*6/uL 3.60-5.00 [facility] Serum or plasma alanine garcia otransferase measurement without P-5'-P (enzymatic activion 06-21-2018 ALT No additional P-5'-P [Catalytic activity/Vol] 26 U/L 10-[address] [facility] Serum or plasma albumin/glob ulin mass ratioon 06-21-2018 Albumin/Globulin [Mass ratio] 1.5 {ratio} [facility] Serum or plasma alkaline sushil sphatase measurement (enzymatic activity/volume)on 06-21-2018 ALP [Catalytic activity/Vol] 47 U/L 32-[address] [facility] Serum or plasma aspartate am inotransferase measurement (enzymatic activity/volume)on 06-21-2018 AST [Catalytic activity/Vol] 37 U/L 10-[address] [facility] Serum or plasma calcium tom urement (mass/volume)on 06-21-2018 Calcium [Mass/Vol] 8.9 mg/dL 8.2-10.2 [facility] Serum or plasma chloride lillie surement (moles/volume)on 06-21-2018 Chloride [Moles/Vol] 102 mmol/L 95-114 [facility] Serum or plasma glucose tom urement (mass/volume)on 06-21-2018 Glucose [Mass/Vol] 81 mg/dL 70-100 [facility] Comment on above: ADA recommended refe rence rangeRandom Glucose Reference Range is dependent on time and content of last meal. Glucose of more than 200 mg/dL in a nonstressed, ambulatory subject supports the diagnosis of Diabetes Mellitus. Serum or plasma high density lipoprotein (HDL) cholesterol measurementon 06-21-2018 Cholesterol in HDL [Mass/Vol] 95 mg/dL 35-[address] [facility] Comment on above: HDL CHOL ATP-III CLA SSIFICATION Cardiovascular RiskHDL > or equal to 60 mg/dL LOWHDL < 40 mg/dL HIGH Serum or plasma potassium me asurement (moles/volume)on 06-21-2018 Potassium [Moles/Vol] 3.7 mmol/L 3.5-5.[address] [facility] Serum or plasma sodium measu rement (moles/volume)on 06-21-2018 Sodium [Moles/Vol] 137 mmol/L 136-146 [facility] Serum or plasma total biliru bin measurement (mass/volume)on 06-21-2018 Bilirubin [Mass/Vol] 0.6 mg/dL 0.3-1.2 [facility] Serum or plasma total carbon dioxide measurement (moles/volume)on 06-21-2018 CO2 [Moles/Vol] 24.5 mmol/L 22.0-30.0 [facility] Serum or plasma urea nitroge n measurement (mass/volume)on 06-21-2018 Urea nitrogen [Mass/Vol] 8 mg/dL 9-[address] [facility] Specific gravity Auto test s trip (U) [Rel density]on 06-21-2018 Specific gravity (U) [Rel density] 1.018 1.001-1.[address] [facility] Squamous epithelial cells de tection in urine sediment by light microscopyon 06-21-2018 Epithelial cells.squamous LM Ql (Urine sed) 10-19 [HPF] 0-[address] [facility] TSH DL <= 0.005 mIU/L Qnon 0 06-21-2018 TSH Qn 0.72 m[IU]/L 0.45-5.[address] [facility] Thyroxine (T4) free [Mass/vo lume] in Serum or Plasmaon 06-21-2018 Free T4 [Mass/Vol] 0.63 ng/dL 0.61-1.12 [facility] Triglyceride [Mass/volume] i n Serum or Plasmaon 06-21-2018 Triglyceride [Mass/Vol] 59 mg/dL 35-[address] [facility] Comment on above: TRIG ATP III CLASSIF ICATIONTRIG less than 150 mg/dL NormalTRIG 150-199 mg/dL Borderline highTRIG 200-500 mg/dL High TRIG greater than 500 mg/dL Very highStandard traceable to the Center for Disease Conrtrol and Prevention (CDC) test method. Urine bacteria detection by automated methodon 06-21-2018 Bacteria Auto Ql (U) 1+ None Seen [facility] Urine clarity by refractomet ry automatedon 06-21-2018 Clarity Refractometry automated (U) Cloudy Clear [facility] Urine culture routineon Bacteria identified Cx Nom (U) [address] [facility] Urine glucose measurement by automated test strip (mass/volume)on 06-21-2018 Glucose Auto test strip (U) [Mass/Vol] Normal mg/dL Normal [facility] Urine hemoglobin detection b y automated test stripon 06-21-2018 Hemoglobin Auto test strip Ql (U) Trace Negative [facility] Urine leukocyte esterase det ection by automated test stripon 06-21-2018 Leukocyte esterase Auto test strip Ql (U) 1+ Negative [facility] Urobilinogen Auto test strip (U) [Mass/Vol]on 06-21-2018 Urobilinogen (U) [Mass/Vol] Normal mg/dL Normal [facility] pH Auto test strip (U)on pH (U) 6.0 [pH] 5.0-9.[address] [facility] Vital Signs Date Time Vital Sign Value Performing Clinician Faci lity 03-25-2023 17:42-0400 Diastolic blood pressure 82 mm[Hg] RIVET HAMMER MACHINE OPERATOREmeterio Adorno Work Phone: [facility] 03-25-2023 17:42-0400 Respiratory rate 16 /min RIVET HAMMER MACHINE OPERATOREmeterio Adorno Work Phone: [facility] 03-25-2023 17:42-0400 SaO2% (BldA) [Mass fraction] 97 % RIVET HAMMER MACHINE OPERATOREmeterio Adorno Work Phone: [facility] 03-25-2023 17:42-0400 Systolic blood pressure 137 mm[Hg] BILL Adorno Work Phone: [facility] 03-25-2023 16:54-0400 Heart rate 86 /min RIVET HAMMER MACHINE OPERATOREmeterio Adorno Work Phone: [facility] 03-25-2023 16:19-0400 Body temperature 99.5 [degF] BILL Adorno Work Phone: [facility] 03-25-2023 16:19-0400 Inhaled oxygen flow rate 6 L/min RIVET HAMMER MACHINE OPERATOREmeterio Adorno Work Phone: [facility] 03-25-2023 14:31-0400 Body height 170.18 cm RIVET HAMMER MACHINE OPERATOREmeterio Adorno Work Phone: [facility] 03-25-2023 14:31-0400 Body mass index (BMI) [Ratio] 18.8 kg/m2 BILL Adorno Work Phone: [facility] 03-25-2023 14:31-0400 Body weight 54.43 kg RIVET HAMMER MACHINE OPERATOREmeterio Adorno Work Phone: [facility] 06-16-2022 08:15-0500 Body temperature 97.7 [degF] BILL Adorno Work Phone: [facility] 06-16-2022 08:15-0500 Body weight 56.9 kg RIVET HAMMER MACHINE OPERATOREmeterio Adorno Work Phone: [facility] 06-16-2022 08:15-0500 Diastolic blood pressure 63 mm[Hg] BILL Adorno Work Phone: [facility] 06-16-2022 08:15-0500 Heart rate 98 /min BILL Adorno Work Phone: [facility] 06-16-2022 08:15-0500 Respiratory rate 20 /min RIVET HAMMER MACHINE OPERATOREmeterio Adorno Work Phone: [facility] 06-16-2022 08:15-0500 SaO2% (BldA) [Mass fraction] 96 % RIVET HAMMER MACHINE OPERATOREmeterio Adorno Work Phone: [facility] 06-16-2022 08:15-0500 Systolic blood pressure 128 mm[Hg] BILL Adorno Work Phone: [facility] 05-31-2022 09:12-0500 Body temperature 97.8 [degF] BILL Adorno Work Phone: [facility] 05-31-2022 09:12-0500 Diastolic blood pressure 99 mm[Hg] BILL Adorno Work Phone: [facility] 05-31-2022 09:12-0500 Heart rate 100 /min BILL Adorno Work Phone: [facility] 05-31-2022 09:12-0500 Respiratory rate 18 /min BILL Adorno Work Phone: [facility] 05-31-2022 09:12-0500 SaO2% (BldA) [Mass fraction] 98 % RIVET HAMMER MACHINE OPERATOR Rosalba Flangaanmelany Work Phone: [facility] 05-31-2022 09:12-0500 Systolic blood pressure 148 mm[Hg] RIVET HAMMER MACHINE OPERATOR Rosalba Kyree Work Phone: [facility] 12-16-2021 08:16-0400 Body height 169.01 cm RIVET HAMMER MACHINE OPERATOREmeterio Flanaganmelany Work Phone: [facility] 12-16-2021 08:16-0400 Body weight 57.87 kg RIVET HAMMER MACHINE OPERATOR Rosalba Flanaganmelany Work Phone: [facility] Encounters Encounter Date Encounter Type Care Provider Facility Start: 01-16-2025 End: 01-16-2025 ambulatory Julia Ramirez Facility:[facility] [place] Start: 01-16-2025 End: 01-16-2025 Patient encounter procedure Julia Ramirez [facility] Start: 01-04-2025 ambulatory Julia Ramirez Facility:[facility] [place] Start: 01-03-2025 End: 01-03-2025 ambulatory Rosalba Hamelany KHAN Work Phone: [facility] Work Phone: Start: 01-03-2025 End: 01-03-2025 Departed Referred Arnold Tolliver MD -LAB [facility] Start: 03-04-2024 End: 03-05-2024 [facility] department [facility] Start: 06-14-2023 End: 06-14-2023 ambulatory Rodrigo Hernandez Other [facility] Other Start: 06-14-2023 Postop follow up vis it related to original px Rodrigo Hernandez [facility] Start: 05-03-2023 End: 05-03-2023 ambulatory Rodrigo Mary Other [facility] Other Start: 05-03-2023 Postop follow up vis it related to original px Rodrigo Mary [facility] Start: 05-03-2023 End: 05-03-2023 Patient encounter procedure BILL Adorno Work Phone: [facility] Start: 04-05-2023 Office outpatient ne w 45 minutes Rodrigo Mary [facility] Start: 04-05-2023 End: 04-05-2023 ambulatory RIVET HAMMER MACHINE OPERATOREmeterio Adorno Work Phone: [facility] Work Phone: Start: 04-05-2023 End: 04-05-2023 Patient encounter procedure BILL Adorno Work Phone: [facility] Start: 03-25-2023 End: 03-25-2023 Admission to same day surgery center BILL Adorno Work Phone: [facility] [place] Start: 03-25-2023 End: 03-25-2023 ambulatory BILL Adorno Work Phone: [facility] Work Phone: Start: 03-24-2023 End: 03-24-2023 Patient encounter procedure BILL Adorno Work Phone: [facility] Start: 03-24-2023 End: 03-24-2023 ambulatory BILL Adorno Work Phone: [facility] Work Phone: Start: 03-24-2023 Encounter for other preprocedural examination Rodrigo Hernandez [facility] Start: 03-24-2023 Office outpatient vi sit 25 minutes Rodrigo [facility] Start: 03-18-2023 (OrthoExp) Ortho Rosalba NEWELL [facility] Start: 03-18-2023 End: 03-18-2023 ambulatory Rosalba Cuevas Other [facility] [employer] Other Start: 03-18-2023 End: 03-18-2023 Patient encounter procedure RIVET HAMMER MACHINE OPERATOR Rosalba Kyree Work Phone: [facility] Start: 06-16-2022 End: 06-16-2022 ambulatory RIVET HAMMER MACHINE OPERATOR Rosalba Flanaganmelany Work Phone: [facility] Work Phone: Start: 06-16-2022 End: 06-16-2022 Registered Recurring RIVET HAMMER MACHINE OPERATOREmeterio Flanaganmelany Work Phone: [facility] Work Phone: Start: 05-31-2022 End: 05-31-2022 ambulatory RIVET HAMMER MACHINE OPERATOR Rosalba Flanaganmelany Work Phone: [facility] Work Phone: Start: 05-31-2022 End: 05-31-2022 Registered Recurring RIVET HAMMER MACHINE OPERATOR Rosalba Flanagannapoleonaria Work Phone: [facility] Start: 10-13-2020 End: 10-14-2020 ambulatory [...] 06-01-2022 Screening mammograph y of bilateral breasts RIVET HAMMER MACHINE OPERATOREmeterio Adorno Work Phone: Start: 06-21-2018 Urine culture RIVET HAMMER MACHINE OPERATOR Argenis Westaria Work Phone: Breast surgery (qual ifier value) Julia Ashley Urine culture BILL Adorno Work Phone: Plan of Treatment Date Care Activity Detail Author Start: 01-03-2025 Bacteria identified in Urine by Culture Urine Culture [facility] Start: 01-03-2025 Urine culture [facility] Start: 03-25-2023 End: 03-25-[address] [facility] MG Breast - bilatera l Screening [facility] Patient Education Quitting smoking [facility] Work Phone: [facility] Immunizations Immunization Date Immunization Notes Care Provider Fa cility 10-13-2020 SARS-CoV-2 (COVID-19 ) mRNA BNT-162b2 vax Julia Ramirez [facility] 09-22-2020 SARS-CoV-2 (COVID-19 ) mRNA BNT-162b2 vax Julia Ramirez [facility] Payers Date Payer Category Payer Unknown [id number] 2.16. [id number] 1975 Unknown [id number] 2.16. 840.1.847176.3.579.2.356 1975 Unknown [id number] 2.16. 840.1.233268.3.579.2.356 1975 Unknown [id number] 2.16. 840.1.689576.3.579.2.356 1975 Unknown [id number] 2.16. 840.1.364499.3.579.2.356 1975 Unknown [id number] 2.16. 840.1.632721.3.579.2.356 1975 Unknown [id number] 2.16. 840.1.172173.3.579.2.356 1975 Unknown [id number] 2.16. 840.1.322781.3.579.2.356 1975 Unknown [id number] 2.16 840.1.686677.3.579.2.356 1975 Unknown [id number] 2.16. 840.1.013373.3.579.2.356 1975 Unknown [id number] 2.16. 840.1.706078.3.579.2.356 1975 Unknown [id number] 2.16. 840.1.290148.3.579.2.356 1975 Unknown [id number] 2.16. 840.1.830077.3.579.2.356 1975 Unknown [id number] 2.16. 840.1.634682.3.579.2.356 1975 Unknown [id number] 2.16. 840.1.920855.3.579.2.356 1975 Unknown [id number] 2.16. 840.1.733283.3.579.2.356 1975 Unknown [id number] 2.16. 840.1.988919.3.579.2.356 1975 Unknown [id number] 2.16. 840.1.141611.3.579.2.356 1975 Unknown [id number] 2.16. 840.1.346798.3.579.2.356 1975 Unknown [id number] 2.16. 840.1.026082.3.579.2.356 1975 Unknown [id number] 2.16. 840.1.058776.3.579.2.356 1975 Unknown [id number] 2.16. 840.1.250402.3.579.2.356 1975 Unknown [id number] 2.16. 840.1.070100.3.579.2.356 1975 Unknown [id number] 2.16. 840.1.256204.3.579.2.356 1975 Unknown [id number] 2.16. 840.1.778720.3.579.2.356 1975 Unknown [id number] 2.16. 840.1.561748.3.579.2.356 1975 Unknown [id number] 2.16. 840.1.390150.3.579.2.356 1975 Unknown [id number] 2.16.84 0.1.993238.3.579.2.593 1975 Unknown [id number] 2.16.84 0.1.367887.3.579.2.593 1975 Unknown [id number] 2.16.8 40.1.748131.3.579.2.727 1959 Unknown [id number] Medicaid [id number] Private Health Insurance [id number] Self-pay Self Pay [id number] Social History Date Type Detail Facility Start: 12-16-2021 End: 12-16-2021 Tobacco smoking status NHIS Current some day smoker [facility] Start: 1975 Sex Assigned At Female F [facility] Sex Assigned At [facility] Start: 03-25-2023 End: 03-25-2023 Tobacco smoking status NHIS Smoker (finding) [facility] Start: 03-25-2023 Tobacco smoking stat us NHIS Smokes tobacco daily (finding) [facility] Sex Female (finding) [facility] Start: 01-16-2025 Tobacco smoking status Heavy t obacco smoker (finding) [facility] Tobacco smoking status Never [facility] Sexual Orientation [facility] Medical Equipment Procedure Code Equipment Code Equipment Origin al Text Equipment Identifier Dates ORIF, fracture, ankle Orthopaedic fixation plate, non-bioabsorbable, non-sterile ()[id number] FDA Start: 03-25-2023 ORIF, fracture, ankle Orthopaedic bone screw, non-bioabsorbable, non-sterile ()[id number] FDA Start: 03-25-2023 ORIF, fracture, ankle Orthopaedic bone screw, non-bioabsorbable, non-sterile ()[id number] FDA Start: 03-25-2023 ORIF, fracture, ankle Orthopaedic bone screw, non-bioabsorbable, non-sterile ()[id number] FDA Start: 03-25-2023 ORIF, fracture, ankle Orthopaedic bone screw, non-bioabsorbable, non-sterile ()[id number] FDA Start: 03-25-2023 ORIF, fracture, ankle Orthopaedic bone screw, non-bioabsorbable, non-sterile ()[id number] FDA Start: 03-25-2023 ORIF, fracture, ankle Orthopaedic bone screw, non-bioabsorbable, non-sterile ()[id number] FDA Start: 03-25-2023 Goals Date Patient Goal [...] Follow these instructions at home: Medicines Take jasc-jej-vehbovx and prescription medicines only as told by [...] or the blood stops without treatment. Take govl-ibo-pksgiwx and prescription medicines only as told by your health care provider. Drink enough fluid to keep your urine pale yellow. This information is not intended to replace advice given to you by your health care provider. Make sure you discuss any questions you have with your health care provider. Document Revised: 01/28/2021 Document Reviewed: 01/28/2021 [employer] Patient Education 2023 [employer]. Follow Up Care 01/04/2025 10:46:03 With:Julia Ramirez PA-C, URL Address: When: Unknown Comments:F/U in 3 months w/ UA [facility] 01-16-2025 Note Patient Education Urology Hematuria, [...] these instructions at home: Medicines ??? Take xjis-wdu-iwmzvpt and prescription medicines only as told by [...] the blood stops without treatment. ??? Take opme-ooh-axmivpx and prescription medicines only as told by your health care provider. ??? Drink enough fluid to keep your urine pale yellow. This information is not intended to replace advice given to you by your health care provider. Make sure you discuss any questions you have with your health care provider. Document Revised: 01/28/2021 Document Reviewed: 01/28/2021 [employer] Patient Education ? 2023 [employer]. [facility] 06-14-2023 Evaluation note Encounter Date Diagnosis [...] of (healed) traumatic fracture (ICD-10 - Z87.81) [facility] Other 11-21-2023 Evaluation note* Encounter Date Diagnosis [...] of (healed) traumatic fracture (ICD-10 - Z87.81) [facility] Other 10-24-2023 Evaluation note* Encounter Date Diagnosis [...] of (healed) traumatic fracture (ICD-10 - Z87.81) [facility] Other 10-12-2023 Evaluation note* Encounter Date Diagnosis [...] pain for many months and potentially cause intermediate pain and stiffness. We have discussed the many potential complications of surgery including respiratory, cardiac, and patient positioning during anesthesia. The risks of DVT, scarring, roasterman pain, non union, hardware failure, development of [...] to smoking and advised on smoking cessation. [facility] Other 10-06-2023 Evaluation note* Encounter Date Diagnosis [...] Acute left ankle pain (ICD-10 - M25.572) [facility] Other 01-04-2023 Progress note Author Carmela Sewell [facility] June 16, 2022 8:34am Note Date/Time June 16, 2022 8: 30am [facility] [place] [address] Hem/Onc Follow Up Note - OP Signed Patient: Eneida Mejia MR#: [id number] : 1975 Acct:[id number] Age/Sex: 47 / F Type: REG RCR Copies to: DO Rsoalba Rodriguez APRN, GABRIEL~ Subjective Date/Time of Service: [...] has some sensitivity. She may use any lmri-gzz-atclwue nondrowsy allergy medicine such as Claritin or [...] follow-up with her in 6 months with ASSISTANT PROFESSOR OF BUSINESS exam. [facility] 20-minute follow-up visit. 12/16/2021: Eneida presents for [...] and sentinel biopsy on 07/28/[address] Saals. 2. Adjuvant radiation: 09/11/18- 10/06/18, 4256 cGy [...] social Social History Comments: works with a [employer] and [employer]. one son. Home Medications & Allergies Allergies [...] Staging: Left breast moderate differentiated (Grade 2, Throckmorton score 7) pT2 (22mm), pN0, M0--ER +90%, UT+ 95%, Her2 equivocal IHC/negative FISH. Oncotype Dx [...] of significant medication interactions between tamoxifen and xqck-htx-hbnrref allergy medicines. Her mammogram and exam showed [...] for coordination of care (as documented) and pveb-gu-aemd counseling of patient and/or family. Dictated By: Carmela Sewell MD DD/ Signed By: <Electronically signed by MD Carmela Sewell> 06/16/22 0834 [facility] Work Phone: [phone] 405-794312-19-2022 Progress note Author Margarita Mora 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 The ER/UT receptors were positive and the HER-2/marcin was [...] 2, stage pT2 pN0 M0, ER positive, UT positive and HER-2/marcin negative Assessment & Plan (1) Carcinoma of upper-outer quadrant of left breast in female, estrogen receptor positive Plan: Patient with clinically localized left breast carcinoma of the upper outer quadrant, stage pT2 pN0 M0, stage Ib is ER/ UT receptor positive and HER-2/marcin negative and she [...] signed by Margarita Mora MD> 05/31/22 1242 [facility] Work Phone: 1([phone]) 818-363507-06-2022 Progress note Author Jessica Spangler [facility] December 16, 2021 8:41am Note Date/Time December 16, 2021 8:37a m [facility] [place] [address] Hem/Onc Follow Up Note - OP Signed Patient: Eneida Mejia MR#: [id number] : 1975 Acct:[id number] Age/Sex: 46 / F Type: REG RCR Copies to: MD Tomi Sarmiento DO Jennifer Hacker APRN, CASE FILLER~ Subjective Date/Time of Service: Date of Service: [...] social Social History Comments: works with a [employer] and [employer]. one son. Home Medications & Allergies Allergies [...] score 7) pT2 (22mm), pN0, M0--ER +90%, UT+ 95%, Her2 equivocal IHC/negative FISH. Oncotype Dx [...] for coordination of care (as documented) and ogym-gg-jfzx counseling of patient and/or family. Dictated By: Jessica Spangler APRN DD/ Signed By: <Electronically signed by BILL Spangler> 12/16/21 0841 [facility] Work Phone: 1([phone]) 708-876801-05-2022 Progress note Author Carmela Sewell [facility] June 17, 2021 8:24am Note Date/Time June 17, 2021 8: 07am [facility] [place] [id number] Hem/Onc Follow Up Note - OP Signed Patient: Eneida Mejia MR#: [id number] : 1975 Acct:[id number] Age/Sex: 46 / F Type: REG RCR Copies to: DO Rosalba Rodriguez APRN, CASE FILLER~ Subjective Date/Time of Service: Date of Service: [...] social Social History Comments: works with a [employer] and [employer]. one son. Home Medications & Allergies Allergies [...] breast cancer Copies to: DO Rosalba Rodriguez RIVET HAMMER MACHINE OPERATOR, CASE FILLER~ CLINICAL DATA: Previous left breast cancer. BILATERAL [...] Staging: Left breast moderate differentiated (Grade 2, Throckmorton score 7) pT2 (22mm), pN0, M0--ER +90%, UT+ 95%, Her2 equivocal IHC/negative FISH. Oncotype Dx [...] for coordination of care (as documented) and tjtu-aa-fthr counseling of patient and/or family. Dictated By: Carmela Sewell MD DD/ 5 Signed By: <Electronically signed by MD Carmela Sewell> 06/17/2124 [facility] Work Phone: [phone]) 106-146811-18-2021 Progress note Author Carmela Sewell [facility] April 30, 2021 5:25pm Note Date/Time April 29, 2021 3:26pm [facility] at [address] [place] [address] Hem/Onc Follow Up Note - OP Signed Patient: Eneida Mejia MR#: [id number] : 1975 Acct:[id number] Age/Sex: 45 / F Type: REG RCR Copies to: DO Rosalba Rodriguez RIVET HAMMER MACHINE OPERATOR, CASE FILLER~ Subjective Date/Time of Service: Date of Service: [...] History (Last Reviewed 04/30/21 @ 17:07 by Cramela Sewell MD) Restless leg syndrome - Surgical History Surgical History: Surgical History (Last Reviewed 04/30/21 @ 17:07 by Carmela Sewell MD) History of lumpectomy of left breast and sentinel node bx 07/28/2018 - Social History Smoking Status: Current some day smoker Tobacco Type: cigarettes Substance Use Type: Alcohol Substance Abuse Comment: social Social History Comments: works with a [employer] and [employer]. one son. Home Medications & Allergies Allergies [...] All imaged data was reviewed using the [employer] system. The postcontrast images were subtracted and [...] Staging: Left breast moderate differentiated (Grade 2, Throckmorton score 7) pT2 (22mm), pN0, M0--ER +90%, UT+ 95%, Her2 equivocal IHC/negative FISH. Oncotype Dx [...] for coordination of care (as documented) and oyog-na-aaru counseling of patient and/or family. Dictated By: Carmela Sewell MD DD/ 1525 Signed By: <Electronically signed by MD Carmela Sewell> 04/30/21 9355 [facility] Work Phone: [phone]) [phone] Progress note Author Margarita Mora [facility] April 28, 2021 4:42pm Note Date/Time April 28, 2021 2:51pm 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 The ER/UT receptors were positive and the HER-2/marcin was [...] 2, stage pT2 pN0 M0, ER positive, UT positive and HER-2/marcin negative Assessment & Plan (1) Carcinoma of upper-outer quadrant of left breast in female, estrogen receptor positive Plan: Patient with clinically localized left breast carcinoma of the upper outer quadrant, stage pT2 pN0 M0, stage Ib is ER/ UT receptor positive and HER-2/marcin negative and she [...] than 30 minutes I spent 20 minutes zbju-de-bbag time with this patient and more than 50% of timeallotted to patient education, answering questions, and coordinating care. N.B: Voice-recognition software was used in the creation of this note. Efforts were made to detect and correct typographical and/or grammatical errors;please excuse them should you find any. Dictated By: Margarita Mora MD DD/ 9673 Signed By: <Electronically signed by Margarita Mora MD> 04/28/21 2091 [facility] Work Phone: [phone] 599-173711-12-2020 Progress note Author Margarita Mora [facility] April 24, 2020 10:44am Note Date/Time April 24, 2020 10:38am [facility] [place] [id number] Rad Onc Follow Up Note - OP Signed Patient: Eneida Mejia MR#: [id number] : 1975 Acct:[id number] Age/Sex: 44 / F Type: REG RCR Copies to: MD Tomi Herrera, DO Rosalba Adorno RIVET HAMMER MACHINE OPERATOR, CASE FILLER~ Subjective - Service Date/Time Date: 04/24/20 Time: 10:00 - Diagnosis Invasive ductal carcinoma of the upper outer quadrant of the left breast, grade 2, stage pT2 pN0 M0, ER positive, UT positive and HER-2/marcin negative - Chief Complaint [...] pathological staging was pT2 pN0 M0. The ER/UT receptors were positive and the HER-2/marcin was [...] 2, stage pT2 pN0 M0, ER positive, UT positive and HER-2/marcin negative Assessment & Plan (1) Carcinoma of upper-outer quadrant of left breast in female, estrogen receptor positive Plan: Patient with clinically localized left breast carcinoma the upper outer quadrant, stage pT2 pN0 M0, stage Ib is ER/ UT receptor positive and HER-2/marcin negative status post [...] signed by Margarita Mora MD> 04/24/20 1044 [facility] Work Phone: [phone] 533-951111-12-2020 Progress note Author Vivek Wells [facility] April 24, 2020 10:27am Note Date/Time April 24, 2020 9:44am [facility] [place] [address] Hem/Onc Follow Up Note - OP Signed Patient: Eneida Mejia MR#: [id number] : 1975 Acct:[id number] Age/Sex: 44 / F Type: REG RCR [...] social Social History Comments: works with a [employer] and [employer]. one son. Home Medications & [...] for coordination of care (as documented) and lhdk-ex-pmcd counseling of patient and/or family. Dictated By: Vivek Wells MD DD/ 0935 Signed By: <Electronically signed by Vivek Wells MD> 04/24/[address] [place] [address] Work Phone: [phone]) 618-877211-13-2019 Progress note Author Vivek Wells [facility] April 25, 2019 10:08am Note Date/Time April 25, 2019 9:50am [facility] [place] [address] Hem/Onc Follow Up Note - OP Signed Patient: Eneida Mejia MR#: [id number] : 1975 Acct:[id number] Age/Sex: 43 / F Type: REG RCR Copies to: DO Rosalba Rodriguez APRN, CASE FILLER~ Subjective Date/Time of Service: Date of Service: [...] social Social History Comments: works with a [employer] and [employer]. one son. Home Medications & Allergies Allergies [...] for coordination of care (as documented) and zetj-jd-kxco counseling of patient and/or family. Dictated By: Vivek Wells MD DD/ 0949 Signed By: <Electronically signed by Vivek Wells MD> 04/25/19 1005 [facility] Work Phone: [phone] Progress note Author Margarita Menauja [facility] April 25, 2019 10:08am Note Date/Time April 25, 2019 9:55am [facility] [place] [address] Rad Onc Follow Up Note - OP Signed Patient: Eneida Mejia MR#: [id number] : 1975 Acct:[id number] Age/Sex: 43 / F Type: REG RCR Copies to: MD Tomi Herrera DO Jennifer Hacker APRN, CNP~ Subjective - Service Date/Time Date: 04/25/19 Time: 09:54 - Diagnosis Invasive ductal carcinoma of the upper outer quadrant of the left breast, grade 2, stage pT2 pN0 M0, ER positive, UT positive and HER-2/marcin negative - Chief Complaint [...] pathological staging was pT2 pN0 M0. 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 I've closely reviewed the patient's oncologic, medical, [...] 2, stage pT2 pN0 M0, ER positive, UT positive and HER-2/marcin negative Assessment & Plan (1) Carcinoma of upper-outer quadrant of left breast in female, estrogen receptor positive Plan: Patient with clinically localized left breast carcinoma the upper outer quadrant, stage pT2 pN0 M0, stage Ib is ER/ UT receptor positive and HER-2/marcin negative status post [...] <Electronically signed by Margarita Mora MD> 04/25/19 5009 [facility] Work Phone: [phone] 179-774608-06-2019 Progress note Author Jacy Pollack [facility] January 16, 2019 10:02am Note Date/Time January 16, 2019 8:5 8am [facility] Center at [address] [address] Hem/Onc Follow Up Note - OP Signed Patient: Eneida Mejia MR#: [id number] : 1975 Acct:[id number] Age/Sex: 43 / F Type: REG RCR Copies to: Tomi Salas, DO Rosalba Adorno APRN, GABRIEL~ Subjective Date/Time of Service: Date of Service: 01/16/2019 Time of Service: 08:40 Chief Complaint: 3 month follow up appt no new concerns - Diagnosis DIAGNOSIS: DIAGNOSIS: 1. Stage IB (pT2-2.2cm, N0-0/2 nodes, Mx), ER 90%, UT 95%, Her-2 negative, grade2 (Alejandro score 7), [...] <3% at 9 years, benefit of chemotherapy<1%; Satmetrix OvaNext gene panel: NEGATIVE. The panel included [...] social Social History Comments: works with a [employer] and [employer]. one son. Home Medications & Allergies Allergies [...] for coordination of care (as documented) and rimo-nk-tbsb counseling of patient and/or family. Dictated By: Jacy Pollack APRN DD/ 0857 Signed By: <Electronically signed by BILL Pollack> 01/16/[address] [place] [address] Ctr Work Phone: [phone]) [phone] Progress note Author Margarita Mora [facility] November 08, 2018 10:52am Note Date/Time November 08, 2018 10:[address] [facility] [place] [address] Rad Onc Follow Up Note - OP Signed Patient: Eneida Mejia MR#: [id number] : 1975 Acct:[id number] Age/Sex: 43 / F Type: REG RCR Copies to: MD Tomi Herrera, DO Rosalba Adorno APRN, CASE FILLER~ Subjective - Service Date/Time Date: 11/08/18 Time: 09:00 - Diagnosis Invasive ductal carcinoma of the upper outer quadrant of the left breast, grade 2, stage pT2 pN0 M0, ER positive, UT positive and HER-2/marcin negative - Chief Complaint [...] pathological staging was pT2 pN0 M0. The ER/UT receptors were positive and the HER-2/marcin was [...] pT2 pN0 M0, stage Ib, ER positive, UT positive and HER-2/marcin negative Assessment & Plan (1) Carcinoma of upper-outer quadrant of left breast in female, estrogen receptor positive Plan: Patient with clinically localized left breast carcinoma the upper outer quadrant, stage pT2 pN0 M0, stage Ib is ER/ UT receptor positive and HER-2/macrin negative status post local radiation to the [...] signed by Margarita Mora MD> 11/08/18 1052 [facility] Work Phone: [phone] Progress note Author Vivek Wells [facility] October 12, 2018 10:38am Note Date/Time October 12, 2018 10:10a m [place] [address] Hem/Onc Follow Up Note - OP Signed Patient: Eneida Mejia MR#: [id number] : 1975 Acct:[id number] Age/Sex: 43 / F Type: REG RCR Copies to: DO Rosalba Rodriguez APRN, GABRIEL~ Subjective Date/Time of Service: Date of Service: 10/12/2018 Time of Service: 10:10 Chief Complaint: Survivorship appt discuss Tamoxifen - Diagnosis DIAGNOSIS: 1. Stage IB (pT2-2.2cm, N0-0/2 nodes, Mx), ER 90%, UT 95%, Her-2 negative, grade2 (Alejandro score 7), [...] <3% at 9 years, benefit of chemotherapy<1%; Satmetrix OvaNext gene panel: NEGATIVE. The panel included [...] PO QHS PRN 07/21/18 10/12/18 History hyaluronic Zf-wzitxtkbd-uhns 1 applic TOPICAL TID 09/13/18 10/12/18 History [...] IB (pT2-2.2cm, N0-0/2 nodes, Mx), ER 90%, UT 95%, Her-2 negative, grade 2 (Throckmorton score 7). ECOG 0. Clinical no symptoms [...] discharge, she should call us or her regulatory lead for evaluation. Mrs. Mejia verbalized good understanding and agreed to proceed. Tamoxifen [id number], with 3 refills, E-prescribed. -We further discuss [...] 1000 units daily. -Calcium supplement 600mg daily. [facility]CI (12 month patient goals): 1.) Exercise more [...] for coordination of care (as documented) and ftzq-cz-uiwk counseling of patient and/or family. Dictated By: Vivek Wells MD DD/ 1010 Signed By: <Electronically signed by Vivek Wells MD> 10/12/18 1038 [facility] Work Phone: [phone] Consult note Author Margarita Mora [facility] August 31, 2018 11:05am Note Date/Time August 31, 2018 9:[address] [facility] [place] [address] Rad Onc Consult Note - OP Signed Patient: Eneida Mejia MR#: [id number] : 1975 Acct:[id number] Age/Sex: 43 / F Type: REG RCR Copies to: MD aMritza Herrera Fredric DO Jennifer Hacker APRN, CASE FILLER~ HPI - Service Date/Time Date: 08/31/18 Time: 09:26 Diagnosis: Invasive ductal carcinoma of the upper outer quadrant of the left breast, grade 2, stage pT2 pN0 M0, ER positive, UT positive and HER-2/marcin negative Chief Complaint: Left [...] pathological staging was pT2 pN0 M0. The ER/UT receptors were positive and the HER-2/marcin was [...] complaints of fever, chills or night sweats. [facility]/Meds Medical/Surgical History: Past history significant for right oophorectomy at age 31 and the pathology was benign. Family History: No significant family history of malignancy. 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 She lives in [place], [place]. Allergies/Adverse Reactions: Allergies Allergy/AdvReac Type Severity [...] pT2 pN0 M0, grade 2, ER positive, UT positive and HER-2 negative status post lumpectomy and sentinel node biopsy. Her Oncotype score is 9 (low risk). Assessment & Plan (1) Carcinoma of upper-outer quadrant of left breast in female, estrogen receptor positive Plan: Patient with clinically localized left breast carcinoma the upper outer quadrant, stage pT2 pN0 M0, stage Ib is ER/ UT receptor positive and HER-2/marcin negative. Her Oncotype [...] 0926 Signed By: <Electronically signed by Margarita Moar MD> 08/31/18 1158 [facility] Work Phone: [phone] Progress note Author Vivek Wells [facility] August 31, 2018 9:04am Note Date/Time August 31, 2018 8:[address] [facility] [place] [address] Hem/Onc Follow Up Note - OP Signed Patient: Eneida Mejia MR#: [id number] : 1975 Acct:[id number] Age/Sex: 43 / F Type: REG RCR Copies to: Tomi Salas APRN, CNP~ Subjective Date/Time of Service: Date of Service: 08/31/2018 Time of Service: 08:53 Chief Complaint: Follow up to review oncotype - Diagnosis DIAGNOSIS: 1. Stage IB (pT2-2.2cm, N0-0/2 nodes, Mx), ER 90%, UT 95%, Her-2 negative, grade2 (Alejandro score 7), [...] <3% at 9 years, benefit of chemotherapy<1%; Satmetrix OvaNext gene panel: NEGATIVE. The panel included [...] ovary removed - Cardiac History Patient on Box Car Checker: No Does Patient Have Pacemaker?: No - Psych History Psychiatric history: no psych history - OLDER WORKER SPECIALIST Hx : 2 Para: 2 OLDER WORKER SPECIALIST history: no OLDER WORKER SPECIALIST history - Family History Family History: no [...] IB (pT2-2.2cm, N0-0/2 nodes, Mx), ER 90%, UT 95%, Her-2 negative, grade 2 (Throckmorton score 7). ECOG 0. Clinical no symptoms [...] chemotherapy. The patient will be discussed at [facility] tumor conference. She is going to this [...] for coordination of care (as documented) and gngh-nu-flfl counseling of patient and/or family. Dictated By: Vivek Wells MD DD/ 0853 Signed By: <Electronically signed by Vivek Wells MD> 08/31/18 0904 [facility] Work Phone: [phone] Progress note Author Tara Hernandez [facility] August 23, 2018 11:09am Note Date/Time August 23, 2018 11: 06am [facility] [place] [address] Genetics Follow Up Note Signed Patient: Eneida Mejia MR#: [id number] : 1975 Acct:[id number] Age/Sex: 43 / F Type: REG RCR Copies to: MD Maritaz Herrera Fredric DO Jennifer Hacker APRN, CNP~ Genetics Follow Up Note Narrative: HPI: Ms. Eneida Mejia is a 43-year old female with a personal history of early-onsetbreast cancer. She was referred to the Cancer Genetics Clinic at [facility] by her physician, Dr. Salas. [...] recommendations for her future health care. RESULTS: Satmetrix OvaNext gene panel: NEGATIVE Ms. Mejia does not have an identifiable deleterious mutation in any of the genesanalyzed on the Xinrong panel. These genes include the following:~BRIAN, BARD1, [...] Mejia or her family members contact the [facility] in 3 years to [...] available. 4. We remain available at the [facility] at [phone] for questions or concerns about the information discussed at this appointment. Tara Hernandez MD Clinical Process Analyst Departments of Genetics and Genome Sciences and Pediatrics [facility] Total counseling time 10 min. Dictated By: Tara Hernandez MD DD/ 1102 Signed By: <Electronically signed by Tara Hernandez MD> 08/23/18 4404 [facility] Work Phone: [phone]) [phone] Consult note Author Vivek Wells [facility] August 22, 2018 2:19pm Note Date/Time August 11, 2018 3:[address] [facility] [place] [id number] Hem/Onc Consult Note - OP Signed with Addenda Patient: Eneida Mejia MR#: [id number] : 1975 Acct:[id number] Age/Sex: 43 / F Type: REG RCR Copies to: Tomi Salas APRN, CASE FILLER~ ADDENDUM1 Oncotype Dx score 9, Rad Onc referral made. Addendum Dictated By: Vivek Wells MD Addendum Signed By: Addendum Cosigned By: DD/ /31/1419 TD/TT: 08/22/1805/31/1419 HPI Date/Time of Service: Date of Service: 08/11/2018 Time of Service: 14:59 Referring Provider/PCP: Referring Provider: Tomi Salas DO PCP: Rosalba Adorno APRN, ASSISTANT PROFESSOR OF BUSINESS-C - History of Present Illness Reason for [...] alreadyhad a genetic counseling, results pending. ONC [facility] - General Attestation statement: The following information was validated with the patient. - Medical History Medical history: No Medical History - Surgical History Surgical History Comment: ovary removed - Cardiac History Patient on Box Car Checker: No Does Patient Have Pacemaker?: No - Psych History Psychiatric history: no psych history - OLDER WORKER SPECIALIST Hx : 2 Para: 2 OLDER WORKER SPECIALIST history: no OLDER WORKER SPECIALIST history - Family History Family History: no [...] focal central necrosis. -ER positive at 90%; UT 95%; HER-2 IHC 2+, FISH negative ratio 1.0 Pathological diagnosis 07/28/18: A.sentinel lymph nodes, left axilla, biopsy: -2 lymph nodes, negative for metastatic carcinoma. B.left breast, lumpectomy: -Invasive ductal carcinoma, Throckmorton histologic score 7(2+3+2), size 22 mm. -Ductal [...] diagnostic mammo BI w/CAD: LUMP LT BREAST ([id number]) US/US breast LT limited: N63.20 Tomosynthesis craniocaudal [...] IB (pT2-2.2cm, N0-0/2 nodes, Mx), ER 90%, UT 95%, Her-2 negative, grade 2 (Throckmorton score 7). ECOG 0. Clinical no symptoms [...] weeks. -The patient will be discussed at [facility] tumor conference, I will see her back [...] for coordination of care (as documented) and lbpm-ah-hdlb counseling of patient and/or family. Dictated By: Vivek Wells MD DD/ 1459 Signed By: <Electronically signed by Vivek Wells MD> 08/11/18 1916 [facility] Work Phone: [phone]) [phone] Consult note Author Tara Hernandez [facility] June 21, 2018 3:00pm Note Date/Time June 21, 2018 12 :16pm [place] [address] Genetics Consult Note Signed Patient: Eneida Mejia MR#: [id number] : 1975 Acct:[id number] Age/Sex: 43 / F Type: PRE RCR Copies to: Tomi Salas APRN, CNP~ Genetics Consultation Note - Consult Note Narrative: HISTORY OF PRESENT ILLNESS: Ms. Eneida Mejia is a 43-year old female with a personal history of early-onsetbreast cancer. She was referred to the Cancer Genetics Clinic at [facility] by her physician, Dr. Salsa. Ms. Mejia is interested in genetic testing [...] Pathology was consistent with invasive ductal carcinoma, ER/UT positive. Surgery date is pending. HISTORY of [...] early 60s Ms. Mejia is of Mixed /Northern [place] descent. There is no known Ashkenazi Sikh ancestry. Consanguinity was denied. OFC: 53 cm [...] if positive. If negative, reflex testing to DNA SEQ OvaNext panel will be performed, which looks at the following additional genes: BARD1, BRIP1, DICER1, EPCAM, MLH1, MRE11A, MSH2, MSH6, MUTYH,NBN, NF1, PMS2, RAD50, RAD51C, RAD51D, SMARCA4, and STK11. Results of this testing are typically available within 3 weeks, and [facility] [...] was drawn. The sample was sent to DNA SEQ for analysis. The 8 gene high riskpanel is usually available in 7-10 days. The larger panel results are expected in 3 weeks. 2. We remain available to Ms. Mejia or her family members at [phone] if anyquestions arise regarding information discussed at today's visit. Starr Pack MS Licensed Genetic Counselor [facility] Tara Hernandez MD Clinical Process Analyst Departments of Genetics and Genome Sciences and Pediatrics [facility] PHYSICIAN STATEMENT OF TIME: I spent 10 minutes with this patient and >50% was spent on counseling and coordination of care. Dictated By: Starr Pack DD/ 1215 Signed By: <Electronically signed by Starr Pack> 06/21/18 1216 <Electronically signed by Tara Hernandez MD> 06/21/18 1500 [facility] [employer] Work Phone: Evaluation + Plan note No data available for this section [facility] evaluation note* Diagnosis Onset Date Resolution Status Decreased sex drive acute Encounter for smoking cessation counseling acute Tobacco dependence acute [id number] chronic Encounter for monitoring tamoxifen therapy chronic Noncompliance with diagnostic testing chronic Noncompliance with medication regimen chronic [facility] [employer] Work Phone: Evaluation noteNo assessment information available [facility] [employer] Work Phone: History general Narrative - Reported* Type Description Date Surgical History ovarian tumor Surgical History breast cancer [facility] Discharge instructions Additional Instructions POST OPERATIVE INSTRUCTIONS FOR THE ANKLE FRACTURE Rodrigo Hernandez DO Orthopedic Surgeon [facility] General instructions: Use ice packs to the [...] or drainage, please contact our office immediately. [facility] Work Phone: Progress note Author Margarita Mora [facility] May 31, 2022 12:42pm Note Date/Time May 31, 2022 12:32pm [facility] [place] [address] Rad Onc Follow Up Note - OP Signed Patient: Eneida Mejia MR#: [id number] : 1975 Acct:[id number] Age/Sex: 47 / F Type: REG RCR Copies to: MD Tomi Sarmiento, DO Rosalba Adorno RIVET HAMMER MACHINE OPERATOR, CASE FILLER~ Subjective - Service Date/Time Date: 05/31/22 Time: 10:00 - Diagnosis Invasive ductal carcinoma of the upper outer quadrant of the left breast, grade 2, stage pT2 pN0 M0, ER positive, UT positive and HER-2/marcin negative - Chief Complaint [...] pathological staging was pT2 pN0 M0. The ER/UT receptors were positive and the HER-2/marcin was [...] 2, stage pT2 pN0 M0, ER positive, UT positive and HER-2/marcin negative Assessment & Plan (1) Carcinoma of upper-outer quadrant of left breast in female, estrogen receptor positive Plan: Patient with clinically localized left breast carcinoma of the upper outer quadrant, stage pT2 pN0 M0, stage Ib is ER/ UT receptor positive and HER-2/marcin negative and she [...] signed by Margarita Mora MD> 05/31/22 1242 [facility] Work Phone: Progress note Author Carmela Sewell [facility] June 16, 2022 8:34am Note Date/Time June 16, 2022 8: 30am [facility] [place] [id number] Hem/Onc Follow Up Note - OP Signed Patient: Eneida Mejia MR#: [id number] : 1975 Acct:[id number] Age/Sex: 47 / F Type: REG RCR Copies to: DO Rosalba Rodriguez RIVET HAMMER MACHINE OPERATOR, CASE FILLER~ Subjective Date/Time of Service: Date of Service: 06/16/2022 Time of Service: 08:28 Chief Complaint: Patient is here for a 6 month follow up for left breast cancer with mammogram for review. No concerns voiced. HPI: 06/16/2022: Weston has no new complaints. Notes that she has some allergies sincerecently getting a new rescue dog and thinks she has some sensitivity. She may use any odcl-lwu-ylfdjnm nondrowsy allergy medicine such as Claritin or [...] follow-up with her in 6 months with ASSISTANT PROFESSOR OF BUSINESS exam. [facility] 20-minute follow-up visit. 12/16/2021: Eneida presents for [...] social Social History Comments: works with a [employer]. one son. Home Medications & Allergies Allergies [...] Staging: Left breast moderate differentiated (Grade 2, Throckmorton score 7) pT2 (22mm), pN0, M0--ER +90%, UT+ 95%, Her2 equivocal IHC/negative FISH. Oncotype Dx [...] of significant medication interactions between tamoxifen and jtpo-cvl-nprtmhk allergy medicines. Her mammogram and exam showed [...] for coordination of care (as documented) and nghz-gk-sugc counseling of patient and/or family. Dictated By: Carmela Sewell MD DD/ Signed By: <Electronically signed by MD Carmela Sewell> 06/16/22 0834 [facility] Work Phone: Progress note No data available for this section [facility] reason for referral (narrative)No reason for referral [facility] Work [facility]: Summary Purpose Family [...] Encounter for smoking cessation counseling Tobacco dependence [id number] Encounter for monitoring tamoxifen therapy Noncompliance with diagnostic testing Noncompliance with medication regimen Chief Complaint M25.572 Chief Complaint M25.572 Fracture Chief Complaint M25.572 S82.832A Fracture Chief Complaint Z98.89 Z87.81 Chief Complaint Admit Date Unknown January 03, 2025 10:5 2am Additional Source Comments INFORMATION SOURCE (unrecogn ized section and content) DATE CREATED AUTHOR 10/22/2018 [facility] DATE CREATED AUTHOR AUTHOR'S ORGANIZ ATION 11/07/2020 [facility] DATE CREATED AUTHOR AUTHOR'S ORGANIZ ATION 03/11/2024 [facility] DATE CREATED AUTHOR AUTHOR'S ORGANIZ ATION 01/06/[address] [facility] DATE CREATED AUTHOR AUTHOR'S ORGANIZ ATION 03/21/2025 [facility] Care Teams (unrecognized sec tion and content) Team Status: Active Member Role Status Dates Rosalba Adorno APRN ASSISTANT PROFESSOR OF BUSINESS-C Primary Care Provider Acti ve Tomi Salas DO Referring Provider Active Carmela Sewell MD Attending Provider Active Team Status: Active Member Role Status Dates Rosalba Adorno APRN ASSISTANT PROFESSOR OF BUSINESS-C Primary Care Provider Acti ve Team Status: Inactive Member Role Status Dates Rosalba Adorno APRN ASSISTANT PROFESSOR OF BUSINESS-C Primary Care Provider Acti ve Rosalba Cuevas NP-C Attending Provider Active Team Status: Inactive Member Role Status Dates Rosalba Adorno APRN ASSISTANT PROFESSOR OF BUSINESS-C Primary Care Provider Acti ve Rodrigo Hernandez DO Attending Provider Active Team Status: Inactive Member Role Status Dates Rosalba Adorno APRN ASSISTANT PROFESSOR OF BUSINESS-C Primary Care Provider Acti ve Start: May 03, 2023 End: May 03, 2023 Rodrigo Hernandez DO Attending Provider Active St art: May 03, 2023 End: May 03, 2023 Team Status: Inactive Member Role Status Dates Rosalba Adorno APRN ASSISTANT PROFESSOR OF BUSINESS-C Primary Care Provider Acti ve Start: January [...] and content) Left Ankle InjuryRecheck Lef t [id number] Visit Post Op Left AnkleRecheck Left AnkleRecheck [...] BE BASED ON THE PRIMARY CLINICAL RECORDS. [employer] provides no warranty or guarantee of the accuracy or completeness of information in this document.
--- NOTE | 2025-03-22 11:49 | CT_ITS ---
The [address] [address] Patient Name: VALENTINE LEE MRN: [id number] date: 1975 Sex: F Assigned Patient Location: ER Current Patient Location: ER Accession/Order Number: [id number] Exam Date: 03/22/2025 12:02 Report Date: 03/22/2025 12:22 At the request of: PERCY OLIVAREZ MD Procedure: CT abdomen pelvis w con CT abdomen pelvis w con 03/22/2025 12:09 PM SIGNS AND SYMPTOMS: Abdominal pain, hyperbilirubinemia TECHNIQUE: Multidetector ct axial images of the abdomen and pelvis were obtained with IV contrast. Multiplanar reformats were performed and reviewed to further define anatomy and possible pathology. CT was performed with one or more of the following dose reduction techniques: Automated exposure control, adjustment of the mA and/or kV according to patient size, or use of iterative reconstruction technique. COMPARISON: 01/03/2025 FINDINGS: Lower Chest: There is a calcified 2 mm granuloma in the right lower lobe. ABDOMEN: Liver: The liver is diffusely hypoattenuating suggesting hepatic steatosis. Bile Ducts: The common bile duct is mildly distended measuring 7 mm. The cystic duct is visible measuring 4 mm in diameter. Gallbladder: Debris is noted in the gallbladder lumen similar to the prior study. The gallbladder is more distended when compared to the prior exam. Subtle fat stranding is noted adjacent to the gallbladder. Pancreas: Within normal limits. Spleen: Within normal limits. Adrenals: Within normal limits. Kidneys: Within normal limits. Pelvis: Reproductive Organs: No pelvic masses. Ureters: Within normal limits. Bladder: Within normal limits. Bowel: Normal caliber. There is wall thickening along the ascending colon with fat along the wall of the colon suggesting a chronic colitis. There is a normal appendix in the right lower quadrant. Mesenteric Lymph Nodes: Mildly prominent lymph nodes are noted at the root of the mesentery and extending into the periportal region. These are partially calcified and are similar to the prior exam measuring up to 3.0 x 1.5 x 1.0 cm in greatest dimension. Peritoneum: No ascites or free air, no fluid collection. Vessels: within normal limits Retroperitoneum: Mildly prominent retroperitoneal lymph nodes are noted in the upper abdomen with the largest measuring up to 1.5 x 0.9 cm in greatest dimension. Abdominal Wall: Within normal limits. Bones: There is a benign-appearing hemangioma at L1. Degenerative changes are noted in the lumbar spine. CT/CT abdomen pelvis w con IMPRESSION: The gallbladder is more distended when compared to the prior exam. Subtle fat stranding is noted adjacent to the gallbladder. The common bile duct is mildly distended measuring 7 mm. The cystic duct is visible measuring 4 mm in diameter. These findings may represents sequelae of acute cholecystitis with possible biliary outflow obstruction. Correlation with ultrasound or nuclear medicine hepatobiliary imaging may be helpful. The liver is diffusely hypoattenuating similar to the prior exam suggesting hepatic steatosis. Mildly prominent lymph nodes are noted in the retroperitoneum, periportal region, and root of the mesentery similar to the prior study. These are of uncertain etiology. Findings suggest a chronic colitis most notably along the ascending colon. This is unchanged. Impression dictated by: Baron Roth M.D. 03/22/2025 12:22 PM Dictation Location: [place] [address] Electronically authenticated by: [id number] Y Date: 03/22/2025 12:22
--- NOTE | 2025-03-22 12:49 | US_ITS ---
The [address] [address] Patient Name: VALENTINE LEE MRN: [id number] date: 1975 Sex: F Assigned Patient Location: ER Current Patient Location: ER Accession/Order Number: [id number] Exam Date: 03/22/2025 13:00 Report Date: 03/22/2025 14:10 At the request of: PERCY OLIVAREZ MD Procedure: US right upper quadrant EXAMINATION TYPE: US right upper quadrant DATE OF EXAM ORDERED: 03/22/2025 1:33 PM HISTORY: Jaundice, abnormal CT COMPARISON: NONE TECHNIQUE: Realtime imaging limited to the right upper quadrant was performed. FINDINGS: Debris is noted in the gallbladder lumen. The gallbladder wall is thickened measuring 4.4 mm. The common bile duct measures 3 mm in greatest dimension on ultrasound although it appears more distended on the CT from the same date.. No intrahepatic or extrahepatic biliary dilatation is seen. The liver is echogenic in the right renal cortex consistent with hepatic steatosis. There is hepatomegaly. Hepatopedal flow is noted in the main portal vein. Partial visualization of the right kidney reveals no gross hydronephrosis. Partial visualization of the pancreas reveals no abnormality. US/US right upper quadrant IMPRESSION: There is gallbladder wall thickening with debris in the gallbladder lumen suspicious for acute cholecystitis. The common bile duct measures 3 mm in greatest dimension on ultrasound although it appears more distended on the CT from the same date. Hepatic steatosis is noted. There is hepatomegaly. Impression dictated by: Baron Roth M.D. 03/22/2025 2:10 PM Dictation Location: [place] [address] Electronically authenticated by: [id number] Y Date: 03/22/2025 14:10
--- NOTE | 2025-03-22 13:11 | ED.GENADUL1 ---
HPI HPI - General Adult General Chief complaint: Abdominal Pain Stated complaint: ABNORMAL LAB Time Seen by Provider: 03/22/25 11:27 Source: patient Mode of arrival: walk-in Limitations: no limitations History of Present Illness HPI narrative: 49-year-old female presented for abnormal blood test. She was found to have elevated bilirubin of 10. She saw her family doctor who ordered some outpatient tests and this result came back and she was directed here. She has been having some upper abdominal pain for about the last week. No trauma or fever. She was noted by her doctor to have scleral icterus and jaundice of her skin. No fever or vomiting. Related Data Home Medications ?Medication ?Instructions ?Recorded ?Confirmed hyoscyamine sulfate 0.125 mg 0.125 mg PO DAILY 03/22/25 03/22/25 sublingual tablet ropinirole 0.25 mg tablet 0.25 mg PO DAILY 03/22/25 03/22/25 Previous Rx's ?Medication ?Instructions ?Recorded ondansetron HCl 4 mg tablet 4 mg PO Q6H PRN nausea and 01/03/25 vomiting #20 tabs pantoprazole 40 mg tablet,delayed 40 mg PO DAILY #30 tabs 01/03/25 release (Protonix) potassium chloride 20 mEq 20 meq PO DAILY #10 tabs 01/03/25 tablet,extended release(part/cryst) Allergies Allergy/AdvReac Type Severity Reaction Status Date / Time morphine Allergy Mild Rash Verified 01/03/25 10:27 Opioid HPI Opioid Management Most Recent Opioid Data: Last Pain Scale 3 Today, 11:43 Ur Phencyclidine Scrn, (NEGATIVE) Negative 01/03/25, 10:52 Review of Systems ROS Narrative A ten point review of systems is negative except as noted above. PFSH PFSH Medical History Hx of malignant neoplasm of breast ?Z85.3 - Personal history of malignant neoplasm of breast (ICD-10) Hx of neoplasm ?Z87.898 - Personal history of other specified conditions (ICD-10) Hx of fracture of fibula ?Z87.81 - Personal history of (healed) traumatic fracture (ICD-10) Social History Smoking status: Current every day smoker Little interest or pleasure in doing things: not at all Feeling down, depressed, or hopeless: not at all Exam Narrative Exam Narrative: Nurses note and vital signs reviewed and patient is not hypoxic. General:The patient appears well and in no apparent distress.Patient is resting comfortably on cart. Skin:Warm, dry, no pallor noted.There is jaundice. Head:Normocephalic, atraumatic Eye: Sclera are icteric. Ears, Nose, Mouth, and Throat: oral mucosa is moist. Nares patent. Cardiovascular:Regular Rate and Rhythm Respiratory:Patient is in no distress, no accessory muscle use, lungs are clear to auscultation, no wheezing, rales or rhonchi Back:non-tender GI: Soft and nondistended. She has some tenderness in her upper abdomen. Musculoskeletal: The patient has no evidence of calf tenderness, no pitting edema, symmetrical pulses noted bilaterally Neurological:A&O, normal speech Psychiatric:Cooperative Constitutional Vital Signs, click to edit/add: Last Vital Signs Temp 99.2 F 03/22/25 11:27 Pulse 101 H 03/22/25 11:27 Resp 18 03/22/25 11:27 BP 103/72 03/22/25 15:00 Pulse Ox 98 03/22/25 15:10 O2 Del Method Room Air 03/22/25 11:27 Course Vital Signs Vital signs: Vital Signs Temperature 99.2 F 03/22/25 11:27 Pulse Rate 101 H 03/22/25 11:27 Respiratory Rate 18 03/22/25 11:27 Blood Pressure 124/73 03/22/25 11:27 Pulse Oximetry 100 03/22/25 11:27 Oxygen Delivery Method Room Air 03/22/25 11:27 Temperature 99.2 F 03/22/25 11:27 Pulse Rate 101 H 03/22/25 11:27 Respiratory Rate 18 03/22/25 11:27 Blood Pressure 103/72 03/22/25 15:00 Pulse Oximetry 98 03/22/25 15:10 Oxygen Delivery Method Room Air 03/22/25 11:27 Medical Decision Making MDM Narrative Medical decision making narrative: The patient has what appears to be acute cholecystitis. She was given IV Zosyn. The patient's likely will need ERCP and I have spoken to the hospitalist service at [facility] and the patient is excepted they are under Dr. Keane. The patient is agreeable and stable for transfer. Labs were done yesterday and not repeated. Differential Diagnosis Differential Diagnosis: Acute cholecystitis, pancreatic mass, liver mass Imaging Data CT scan - abdomen: Radiologist's impression: ITS Impressions Abdomen/Pelvis CT 03/22/25 11:49 IMPRESSION: The gallbladder is more distended when compared to the prior exam. Subtle fat stranding is noted adjacent to the gallbladder. The common bile duct is mildly distended measuring 7 mm. The cystic duct is visible measuring 4 mm in diameter. These findings may represents sequelae of acute cholecystitis with possible biliary outflow obstruction. Correlation with ultrasound or nuclear medicine hepatobiliary imaging may be helpful. The liver is diffusely hypoattenuating similar to the prior exam suggesting hepatic steatosis. Mildly prominent lymph nodes are noted in the retroperitoneum, periportal region, and root of the mesentery similar to the prior study. These are of uncertain etiology. Findings suggest a chronic colitis most notably along the ascending colon. This is unchanged. Impression dictated by: Baron Roht M.D. 03/22/2025 12:22 PM Dictation Location: [employer] Electronically authenticated by: [id number] Y Date: 03/22/2025 12:22 Upper Quadrant Ultrasound 03/22/25 12:49 IMPRESSION: There is gallbladder wall thickening with debris in the gallbladder lumen suspicious for acute cholecystitis. The common bile duct measures 3 mm in greatest dimension on ultrasound although it appears more distended on the CT from the same date. Hepatic steatosis is noted. There is hepatomegaly. Impression dictated by: Baron Roth M.D. 03/22/2025 2:10 PM Dictation Location: [employer] Electronically authenticated by: [id number] Y Date: 03/22/2025 14:10 Discharge Plan Discharge Chief Complaint: Abdominal Pain Clinical Impression: Acute cholecystitis Patient Disposition: [facility] Time of Disposition Decision: 17:04 Discharge Location: [facility] Condition: Fair Mode of Transportation: EMS
[2025-03-22] MEDS: PIPERACILLIN SODIUM/TAZOBACTAM 3.375 GM in 0.9 % SODIUM CHLORIDE 50 ML IV (14:42)
[2025-03-22] MEDS: HYDROMORPHONE HCL 1 MG/ML CARTRIDGE IV (17:35)
== END 2025-03-22 17:58 | disposition short-term general hospital (02) ==
PROVIDERS: Emergency Provider Emergency Medicine; PCP Family Medicine
DX: K81.0 Acute cholecystitis (principal); F17.200 Nicotine dependence, unspecified, uncomplicated; R17 Unspecified jaundice
CPT/HCPCS: 74177; 76705; 96365; 96375; 99285; J1171; J2543; Q9967

== ENCOUNTER 2025-04-08 09:36 | Outpatient (OUT) | payer OTHER, SELFPAY ==
--- OUTSIDE RECORDS SUMMARY | 2022-06-01 12:57 | XMS_ITS | Continuity of Care Document ---
Author Organization [facility] Address [address] [place] [address] Phone Care Team Providers Care Senior Teller Name Role Phone Derick WHCNP WHCNP, Ni [...] Instruction Treatment Completed Intraoral-periapical 1st Film 9 Sfsksauft-hkmzhymqoo-tsmq Additional Feb Limited Oral Eval PREV VISIT, [...] Diagnoses Date Provider Providers Copied on Encounter [facility], [address] [place] [address], [id number] , [place] tel: [phone] [facility] No Information 2 Rice [facility] Ni. [address] [place], [place], [id number], [place]. tel:[phone] [facility], [address] [place] [address], [id number] , [place] tel: [phone] [facility] No Information Apr-0 9 Kyree Navarrete. [address] [place], [place], [id number], [place]. tel:[phone] [facility], [address] [place] [address], [id number] , [place] tel: [phone] Dental Clinic Encounter for screening for dental disorders Sep-0 9 Waldemar Quintanilla. [address] [place], [place], [id number], [place]. tel:[phone] [facility], [address] [place] [address], [id number] , [place] tel: [phone] Dental Clinic dental emergency (chief complaint) Encounter for screening for dental disorders Sep-0 - 9 Colin Greenberg. [address] [place], [place], [id number], [place]. tel:[phone] [facility], [address] [place] [address], [id number] , [place] tel: [phone] [facility] problem visit (chief complaint) Body mass index (BMI) 21.0-21.9, adult Sep-0 3- 9 Kyree Navarrete. [address] [place], [place], [id number], [place]. tel:[phone] [facility], [address] [place], [place], [id number] , [place] tel: [phone] [facility] review labs (chief complaint) Body mass index (BMI) 21.0-21.9, adultUrinary frequencyEncounter to discuss test resultsNeuropathyI nfiltrating ductal carcinoma of left breast 9 Kyree Navarrete. [address] [place], [place], [id number], [place]. tel:[phone] [facility], [address] [place] [address], [id number] , [place] tel: [phone] [facility] leg numbness (chief complaint) Body mass index (BMI) 21.0-21.9, adultEncounter to establish careInfiltrating ductal carcinoma of left breastNeuropathyTo bacco abuse 8-201 8 Kyree Navarrete. [address] [place] [address], [id number], [place]. tel:[phone] [facility], [address] [place] [address], [id number] , [place] tel: [phone] [facility] Infiltrating ductal carcinoma of left breast 2 8 [facility]. [address] [place], [place], [id number], [place]. tel:[phone] [facility], [address] [place], [place], [id number] , [place] tel: [phone] [facility] Lump in the left breast 3 8 Rice CNP Ni. [address] [place] [address], [id number], [place]. 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 Ni. [address] [place], [place], [id number], [place]. tel:[phone] [facility], [address] [place], [place], [id number] , [place] tel: [phone] [facility] Fibrocystic disease of breast 7 [facility] Ni. [address] [place], [place], [id number], [place]. tel:[phone] PREVENTIVE NEW AGE 40-64 [facility], [address] [place], [place], [id number] , [place] tel: [phone] [facility] annual exam (chief complaint) Unspecified lump in breastEnlarged uterus- STD screen- STD liefstyle code- well woman with abnormal finding 7 [facility] Ni. [address] [place], [place], [id number], [place]. tel:[phone] PREV VISIT, NEW, AGE 18-39 [facility], [address] [place], [place], [id number] , [place] tel: [phone] [facility] No Information 1 Hunter Walker. [address] [place], [place], [id number], [place]. tel:[phone] Family History Family Member Type Diagnosis Age At Onset Mother Problem (finding) Alive and well Father Problem (finding) alcoholism Brother Problem (finding) Alive and well Payers Payer name Insurance type Covered constitution party ID Authorsaniyaa tivalente(s) Self Pay Cap 09 [...] Treatment Date Type Action Status Goal Dietary management education , guidance, and counseling completed Goal Tobacco cessation counseling completed Goal Tobacco cessation counseling completed Goal Dietary management education , guidance, and counseling completed Goal Tobacco cessation counseling completed Goal Dietary management education , guidance, and counseling completed Goal Tobacco cessation counseling completed Goal Tobacco cessation counseling completed Goal Tobacco cessation counseling completed Referral Ordered: Referrals: Surgery Appointment date/timeframe: 06/01/2018 [id number] Ordered: BREAST ULTRASOUND GUIDED BIOPSY Left [id number] Ordered: DX MAMMO INCL CAD BI [id number] Order: Lab OrderCBC With Differential/Platelet ([id number]), Ordered on: [id number] Order: Lab OrderComp. Metabolic Panel (14) ([id number]), Ordered on: [id number] Order: Lab OrderHemoglobin A1c ([id number]), Ordered on: [id number] [id number] Order: Lab OrderLipid Panel ([id number]), Ordered on: [id number] Order: Lab OrderTSH+Free T4 ([id number]), Ordered on: [id number]-[id number] Order: Lab OrderUA/M w/rflx Culture, Routine ([id number]), Ordered on: [id number] History Of Present Illness Encounter Date Complaint [...] labs Patient is here to review labs. [employer] leg numbness Patient is here to discuss her leg numbness. 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 She has recently been diagnosed with Breast Cancer by Neida Aceves on for a plan of action. [employer] annual exam Currently pregna nt: no. : [...] Patient states understanding. 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
--- OUTSIDE RECORDS SUMMARY | 2025-03-22 19:27 | XMS_ITS | Encounter Summary ---
Author Organization [facility] Address [address], [address] [place] [address] Care Team Providers Care Patient Intake Representative Name Role Phone Sudhir Gonzalez MD Primary Care Provider [phone] Reason for Visit * Auth/CertSpecialtyDiagnoses / ProceduresReferred By ContactReferred To Contact Diagnoses Acute cholecystitis STVZ 5A Stepdown [address] [place] [address] Phone: tel: [facility] [address] [place] [address] Referral IDStatusReasonStart DateExpiration DateVisits RequestedVisits [id number] Encounter Details DateTypeDepartmentCare Team (Latest Contact Info)Ikhkrueljvb13/10/2025 7:27 PM EDT - 03/31/2025 5:11 PM EDTHospital Encounter STVZ 5A Stepdown [address] [place] [address] [id number] Pauly Keane MD [address] [place], [place] [phone] Josias Corona MD [address] [id number] Marvel Ng MD [address] [place] [address] Hypotension, unspecified hypotension type (Primary Dx); Anemia, unspecified type; Common bile duct stricture (HCC); Acute cholecystitis Discharge Disposition: Home or Self Care Social History Tobacco UseTypesPacks/DayYears UsedDateSmoking Tobacco: Every IpwQnyaatmcqg369.4 Started: 11/1995 Tobacco Cessation:Ready to Q uit: Not Asked; Counseling Given: Not Answered Alcohol UseStandard Drinks/WeekCommentsYes3 (1 standard drink = 0.6 oz pure alcohol)Reports 3 vodka drinks dailyHousing Stability Vital SignAnswerDate RecordedIn the last 12 months, was there a time when you were not able to pay the mortgage or rent on time?No03/22/2025In the past 12 months, how many times have you moved where you were living?t any time in the past 12 months, were you homeless or living in a jail (including now)?No03/22/2025 Hunger Vital SignAnswerDate RecordedWithin the past 12 months, you worried that your food would run out before you got the money to buymore.Often true03/22/2025 Within the past 12 months, the food you bought just didn't last and you didn't have money to get more.Often true03/22/2025PRAPARE - TransportationAnswerDate RecordedIn the past 12 months, has lack of transportation kept you from medical appointments or from getting medications?No03/22/2025In the past 12 months, has lack of transportation kept you from meetings, work, or from getting things needed for daily living?No03/22/2025HC UtilitiesAnswerDate RecordedIn the past 12 months has the [employer], gas, oil, or water company threatened to shut off services in your home?No03/22/2025Interpersonal Safety Domain Source: IP Abuse ScreeningAnswerDate RecordedPhysical dsusaClwlsi82/13/2025Verbal abuseDenies 03/25/2025Emotional gcqkoReccov33/13/2025Financial otpvuFqmzln00/13/2025Sexual mvoqnHaunqr57/13/2025CommentsUnknownSex and Gender InformationValueDate RecordedSex Assigned at BirthNot on fileLegal PqvAvknfi47/10/2025 3:15 PM EDT Gender IdentityNot on fileSexual OrientationNot on filedocumented as of this encounter Last Filed Vital Signs Vital SignReadingTime TakenCommentsBlood Jbbpfzsj643/7503/31/2025 1:06 PM EDT Pahay770403/31/2025 1:06 PM JWVLmbimmhnrzc64.7 ??C (98.1 ??F)03/31/2025 11:30 AM EDTRespiratory Zlwf6430 1:06 PM EDTOxygen Gqwrohriud049%03/31/2025 11:30 AM EDTInhaled Oxygen Concentration--Lnxssv99.1 kg (119 lb 4.3 oz)03/22/2025 7:31 PM UAZOyjnvf586.2 cm (5' 7.01 )03/26/2025 11:37 AM EDTBody Mass Index18.68 03/22/2025 7:31 PM EDTdocumented in this encounter Discharge Summaries * Marvel Ng MD - 03/31/2025 9:09 AM EDT Images from the original note were not included. [facility] Office: [phone] Marquez Scott DO, Garth Casanova DO, Kenny Vicente DO, Edu Akers DO, Ubaldo Nava MD, Yasmeen Day MD, Darian Covarrubias MD, Pauly Keane MD, Terence Marte MD, Cordelia Medina MD, Sana Guaman MD, Tania Forman DO, Luigi Scott DO, Kaylie Briones MD, Ariel Glez DO, Emily Miller MD, Catina Melissa MD, Josias Corona MD, Jamil Louie MD, Carlyle Bledsoe MD,Estefany Badillo MD, Marvel Ng MD, Elvis Malave MD, Natalie Monroe MD, Jarred Dias DO,Yahaira Ma MD, Connor Neal DO, Kingsley James MD, Francisco Licona MD, Tania Bustillos MD, Manuel Bustillos MD, Berry Holder MD, Ruth Causey CNP, Za Del Valle CNP, Jarred Sandoval CNP, TAI Manriquez, Gabby Epstein CNP, Carmen Pack CNP, Amber Del Toro, SVP, Lula Alvarado, SVP, Julia Ortiz, [facility], Linda Guidry, SVP, Lillie Gipson, SVP, Magaly Lind, SVP, Ni Rodriguez, SVP, KASH SueroC, KASH LynchC, Shivani Díaz, SVP, Lily Esteves, SVP, Tracy Richardson, SVP, Carmela Wills, [facility], Sheila Smith, [facility], Kate Macias, [facility], Jeanie Fox, SVP [facility] IN-PATIENT SERVICE [facility] Discharge Summary Patient ID: Eneida Mejia : 1975 ACCOUNT: [id number] Patient's PCP: Sudhir Gonzalez MD Admit Date: 03/22/2025 Discharge Date: 03/31/2025 Length of Stay: 9 Code Status: Full Code Admitting Physician: Marvel Ng MD Discharge Physician: Marvel Ng MD Active Discharge Diagnoses: Hospital Problem Lists: Principal Problem: Acute cholecystitis Active Problems: History of breast cancer Restless legs Tobacco user Jaundice Hepatic steatosis Common bile duct dilatation Unintended weight loss Daily consumption of alcohol Generalized abdominal pain Gastritis without bleeding Adenomatous polyp of ascending colon Hypotension Resolved Problems: * No resolved hospital problems. * Admission Condition: fair Discharged Condition: good Hospital Stay: Hospital Course: 49-year-old female with history of breast cancer status post left lumpectomy status post tamoxifen treatment, nicotine dependence and alcohol abuse presented as a transfer from [facility] for management of acute cholecystitis and concern for choledocholithiasis. Reported nausea vomiting diarrhea, abd pain and unintentional weight loss since last [address] abdomen pelvis showed GB distention with CBD dilation. GI consulted. 03/25-S/p EGD-minimal esophagitis with patent schatzki. Mild PHG r/o cirrhosis. Colonoscopy-6 mm ascending polyp, 4 mm polyps in sigmoid, Mild sigmoid diverticulosis, Small internal and external hemorrhoids. No evidence of bleed Also during hospital course patient underwent ROBOTIC LAPAROSCOPIC CHOLECYSTECTOMY on 03/29 She cleared from GI and general surgery to be discharged and outpatient follow- up, Gastroenterologyfinal recommendation that patient needs follow-up with GI after discharge for obtain x-ray abdomen within a week to document PD passage, and repeat ERCP in 4 weeks for biliary stent removal. Also during hospital course patient noticed to have soft blood pressure she was given midodrine however her blood pressure become more stable, she was seen and examined today continue to report mild abdominal discomfort however she reports that her pain is controlled with oral pain medication I advised the patient that she need to continue to check her blood pressure regularly at home and she need to follow-up with her primary doctor to recheck her blood pressure after discharge, also need to follow-up with gastroenterology And she will be discharged home today on stable condition Significant therapeutic interventions: as above Significant Diagnostic Studies: Labs / Micro: CBC: Lab Results Component Value Date/Time WBC 7.8 03/31/2025 05:29 AM RBC 2.58 03/31/2025 05:29 AM HGB 9.6 03/31/2025 05:29 AM HCT 30.5 03/31/2025 05:29 AM MCV 118.2 03/31/2025 05:29 AM MCH 37.2 03/31/2025 05:29 AM MCHC 31.5 03/31/2025 05:29 AM RDW 13.2 03/31/2025 05:29 AM PLT 276 03/31/2025 05:29 AM BMP: Lab Results Component Value Date/Time GLUCOSE 88 03/31/2025 05:29 AM NA 136 03/31/2025 05:29 AM K 4.2 03/31/2025 05:29 AM CL 105 03/31/2025 05:29 AM CO2 25 03/31/2025 05:29 AM ANIONGAP 6 03/31/2025 05:29 AM BUN 3 03/31/2025 05:29 AM CREATININE 0.4 03/31/2025 05:29 AM CALCIUM 8.5 03/31/2025 05:29 AM LABGLOM >90 03/31/2025 05:29 AM Radiology: XR ABDOMEN (KUB) (SINGLE AP VIEW) Result Date: 03/27/2025 1. Presumed vicarious contrast excretion within the gallbladder, cholelithiasis. 2. Unremarkable bowel gas pattern. 3. No radiopaque urinary collecting system calculus evident. US ORGAN ELASTOGRAPHY Result Date: 03/25/2025 1. Limited visualization of the liver to evaluate stiffness as below. The visualized liver demonstrates increased echogenicity corresponding with severe steatosis seen on MRI. Coarsened liver echotexture suggests a degree of underlying fibrotic change with no obvious findings of cirrhosis, although evaluation is limited by lack of routine right upper quadrant sonographic images. 2. Liver stiffness of 13.47 kPa, correlating with a Metavir score of F4 (cirrhosis, >11.9 kPa). MRI ABDOMEN W WO CONTRAST MRCP Result Date: 03/24/2025 1. Nonspecific edema seen at the vernon hepatis/extrahepatic common bile duct and pancreatic body raised the possibility pancreatitis versus CBD stricture. No definite evidence of choledocholithiasis or intrahepatic bile dilatation. 2. Nonspecific gallbladder wall thickening with cholelithiasis, raising the possibility of cholecystitis. Consultations: Consults: Final Specialist Recommendations/Findings: IP CONSULT TO GI IP CONSULT TO VASCULAR ACCESS TEAM IP CONSULT TO GENERAL SURGERY The patient was seen and examined on day of discharge and this discharge summary is in conjunction with any daily progress note from day of discharge. Discharge plan: Disposition: Home Physician Follow Up: Dimas Andujar MD [address] [address] Follow up in 2 week(s) Diet: regular diet Activity: As tolerated Instructions to Patient: Please continue to take your medication as prescribed, continue to check your blood pressure regularly at home and follow-up with your primary doctor within 1 week of discharge to recheck her blood pressure and to adjust your home medication if needed Please follow-up with gastroenterology after discharge for :XR abd within a week to document PD passage, and for Repeat ERCP in 4 weeks for biliary stent removal. Discharge Medications: Medication List START taking these medications midodrine 5 MG tablet Commonly known as: PROAMATINE Take 1 tablet by mouth 3 times daily as needed (if SBP<100) oxyCODONE-acetaminophen 5-325 MG per tablet Commonly known as: PERCOCET Take 1 tablet by mouth every 4 hours as needed for Pain for up to 5 days. Max Daily Amount: 6 tablets CONTINUE taking these medications melatonin 10 MG Caps capsule pantoprazole 40 MG tablet Commonly known as: PROTONIX rOPINIRole 0.25 MG tablet Commonly known as: REQUIP Where to Get Your Medications These medications were sent to [facility] Mirella Gonzales, [address] [phone] - F [phone] [place] [address] midodrine 5 MG tablet oxyCODONE-acetaminophen 5-325 MG per tablet No discharge procedures on file. Time Spent on discharge is 33 mins in patient examination, evaluation, counseling as well as medication reconciliation, prescriptions for required medications, discharge plan and follow up. Electronically signed by Marvel Ng MD 03/31/2025 10:50 AM Thank you Sudhir Leigh MD for the opportunity to be involved in this patient's care. documented in this encounter Discharge Instructions * Discharge Instructions* Marvel Ng MD - 03/31/2025 9:11 AM EDT Please continue to take your medication as prescribed, continue to check your blood pressure regularly at home and follow-up with your primary doctor within 1 week of discharge to recheck her blood pressure and to adjust your home medication if needed Please follow-up with gastroenterology after discharge for :XR abd within a week to document PD passage, and for Repeat ERCP in 4 weeks for biliary stent removal. documented in this encounter Medications at Time of Discharge MedicationSigDispense QuantityRefillsLast FilledStart DateEnd Date midodrine (PROAMATINE) 5 MG tablet Take 1 tablet by mouth 3 times daily as needed (if SBP<100) 30 tablet 03/31/2025 melatonin 10 MG CAPS capsule Take 1 capsule by mouth nightly as needed (sleep)01/10/2025 pantoprazole (PROTONIX) 40 MG tablet Take 1 tablet by mouth daily01/16/2025 rOPINIRole (REQUIP) 0.25 MG tablet Take 1 tablet by mouth rgvhdkr7101/10/2025 oxyCODONE-acetaminophen (PERCOCET) 5-325 MG per tablet Indications:Common bile duct stricture (HCC)Take 1 tablet by mouth every 4 hours as needed for Pain for up to 5 days. Max Daily Amount: 6 tablets 15 tablet documented as of this encounter Progress Notes * Isaias Monae, DO - 03/31/2025 6:58 AM EDT Images from the original note were not included. PROGRESS NOTE PATIENT NAME: Eneida Mejia DATE: 03/31/2025 Hospital Day: # 9 DIAGNOSIS AND PLAN Patient is a 49-year-old female presented with abdominal pain, vomiting, and diarrhea with symptomsand imaging concerning for cholecystitis. S/p ERCP with sphincterectomy and biliary stent placement. Sludge identified without stone. S/p robotic laparoscopic cholecystectomy on 03/29. Patient doing well postoperatively. Trialing regular diet this morning. Antibiotics complete Pain and nausea control as needed. Okay for DVT prophylaxis from surgical standpoint. Stable for discharge from general surgery standpoint. Chief Complaint: I'm sore SUBJECTIVE Patient seen and examined at bedside's morning. Patient is afebrile, hemodynamically stable, on room air. No acute events overnight. States that she is mill tender washing at her incision sites, however, states that is improving yesterday. Tolerating a regular diet. Has no acute complaints at this time. OBJECTIVE VITALS: Vitals: 03/31/25 0332 BP: 108/69 Pulse: 61 Resp: 16 Temp: 98.1 ??F (36.7 ??C) SpO2: GENERAL: No acute distress. Mildly uncomfortable. NEURO: Alert and oriented. HEENT: Trachea midline. Scleral icterus. LUNGS: Normal work of breathing. On room air. HEART: Regular rate and rhythm. ABDOMEN: Soft and nondistended. Tenderness at incision sites. Laparoscopic incisions are well-approximated, Dermabond in place. No evidence of bleeding or infection. EXTREMITY: Moving all extremities. SKIN: Well-perfused. Subtle jaundice. INCISION: CDI. Dermabond intact. LAB: CBC: Recent Labs 03/29/25 0624 03/30/25 0626 03/31/25 0529 WBC 8.6 10.3 7.8 HGB 9.1* 9.3* 9.6* HCT 29.6* 30.0* 30.5* MCV 121.3* 119.5* 118.2* PLT 253 275 276 BMP: Recent Labs 03/29/25 0624 03/30/25 0626 03/31/25 0529 NA 133* 135* 136 K 4.2 3.2* 4.2 CL 102 100 105 CO2 24 25 25 BUN 2* 3* 3* CREATININE 0.4* 0.4* 0.4* GLUCOSE 82 76 88 RADIOLOGY: No results found. Isaias Monae DO 03/31/2025, 6:58 AM Cosigned by Brad Chino MD at 04/01/2025 1:19 PM EDT Associated attestation - Brad Chino MD - 04/01/2025 1:19 PM EDT I personally evaluated the patient and directed the medical decision making with Resident/JAMILA afterthe physical/radiologic exam and laboratory values were reviewed and confirmed. Dispo planning S. Abad Chino MD, [facility] Acute Care Surgery Attending [facility] Specialists * Marvel Ng MD - 03/30/2025 11:06 AM EDT Images from the original note were not included. [facility] Office: [phone] Marquez Scott DO, Garth Casanova DO, Kenny Vicente DO, Edu Akers DO, Ubaldo Nava MD, Yasmeen Day MD, Darian Covarrubias MD, Pauly Keane MD, Terence Marte MD, Cordelia Medina MD, Sana Guaman MD, Tania Forman DO, Luigi Scott DO, Kaylie Briones MD, Ariel Glez DO, Emily Miller MD, Catina Melissa MD, Josias Corona MD, Jamil Louie MD, Carlyle Bledsoe MD,Estefany Badillo MD, Marvel Ng MD, Elvis Malave MD, Natalie Monroe MD, Jarred Dias DO,Yahaira Ma MD, Connor Neal DO, Kingsley James MD, Francisco Licona MD, Tania Bustillos MD, Manuel Bustillos MD, Berry Holder MD, Ruth Causey, SVP, Za Del Valle, SVP, Jarred Sandoval, SVP, Declan, [facility], Gabby Epstein, SVP, Carmen Pack, SVP, Amber Del Toro, SVP, Lula Alvarado, SVP, Julia Ortiz, PA-C, Linda Guidry, SVP, Lillie Gipson, SVP, Magaly Lind, SVP, Ni Rodriguez, SVP, Shaun Cabrales, PA-C, Danica Hernandez, PA-C, Shivani Díaz, [facility], Lily Esteves, [facility], Tracy Richardson, [facility], Carmela Wills, [facility], Sheila Smith, [facility], Kate Macias, [facility], Jeanie Fox, [facility] IN-PATIENT SERVICE [facility] Progress Note 03/30/2025 11:06 AM Name: Eneida Mejia Acct: [id number] Room: [address] [place] [address] Day: 8 Admit Date: 03/22/2025 7:27 PM PCP: Sudhir Gonzalez MD Code Status: Full Code Subjective: C/C: N/V/Abd pain/diarrhea Interval History Status: Not changed S/p ROBOTIC LAPAROSCOPIC CHOLECYSTECTOMY on 03/29 Still complaining of abdominal pain today 12/20, denies any other complaint 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 Reported nausea vomiting diarrhea, abd pain and unintentional weight loss since last [address] abdomen pelvis showed GB distention with CBD dilation. GI consulted. 03/25-S/p EGD-minimal esophagitis with patent schatzki. Mild PHG r/o cirrhosis. Colonoscopy-6 mm ascending polyp, 4 mm polyps in sigmoid, Mild sigmoid diverticulosis, Small internal and external hemorrhoids. No evidence of bleed. Review of Systems: Review of Systems Constitutional: Negative for chills, fatigue and fever. HENT: Negative for congestion, hearing loss and rhinorrhea. Respiratory: Negative for cough, shortness of breath and wheezing. Cardiovascular: Negative for chest pain, palpitations and leg swelling. Gastrointestinal: Positive for abdominal pain. Negative for abdominal distention and vomiting. Endocrine: Negative for polydipsia and polyphagia. Genitourinary: Negative for difficulty urinating and dysuria. Musculoskeletal: Negative for arthralgias and back pain. Skin: Negative for rash and wound. Neurological: Negative for dizziness, seizures, light-headedness and headaches. Psychiatric/Behavioral: Negative for agitation and behavioral problems. Medications: Allergies: Allergies Allergen Reactions Morphine Rash Patient reports rash and redness to bilateral hands and arms after receiving. Current Meds: Scheduled Meds: enoxaparin 40 mg SubCUTAneous Daily potassium chloride 10 mEq IntraVENous Once midodrine 10 mg Oral TID WC midodrine 10 mg Oral Once metroNIDAZOLE Topical BID potassium chloride 20 mEq Oral Daily sodium chloride flush 5-40 mL IntraVENous 2 times per day piperacillin-tazobactam 3,375 mg IntraVENous Q8H pantoprazole (PROTONIX) 40 mg in sodium chloride (PF) 0.9 % 10 mL injection 40 mg IntraVENous Daily Continuous Infusions: sodium chloride PRN Meds: ALPRAZolam, polyethylene glycol, bisacodyl, oxyCODONE-acetaminophen, magnesium sulfate, sodium chloride flush, calcium carbonate, aluminum & magnesium hydroxide-simethicone, sodium chloride flush, sodium chloride, potassium chloride OR potassium alternative oral replacement ORpotassium chloride, ondansetron OR ondansetron, acetaminophen OR acetaminophen, HYDROmorphone, melatonin, rOPINIRole Data: Past Medical History: has a past medical history of Cancer (HCC), History of breast cancer, and Restless legs. Social History: reports that she has been smoking cigarettes. She started smoking about 29 years ago. She has a 29.4 pack-year smoking history. She does not have any smokeless tobacco history on file. She reports current alcohol use of about 3.0 standard drinks of alcohol per week. She reports thatshe does not currently use drugs. Family History: History reviewed. No pertinent family history. Vitals: BP 120/78 Pulse 67 Temp 98.2 ??F (36.8 ??C) (Oral) Resp 16 Ht 1.702 m (5' 7.01 ) Wt 54.1 kg (119 lb 4.3 oz) SpO2 100% BMI 18.68 kg/m?? Temp (24hrs), Av.6 ??F (36.4 ??C), Min:97.2 ??F (36.2 ??C), Max:98.2 ??F (36.8 ??C) No results for input(s): POCGLU in the last 72 hours. I/O (24Hr): Intake/Output Summary (Last 24 hours) at 03/30/2025 1106 Last data filed at 03/30/2025 0812 Gross per 24 hour Intake 1304.21 ml Output 410 ml Net 894.21 ml Labs: Hematology: Recent Labs 03/27/25 1126 03/29/25 0624 03/30/25 06 WBC 12.0* 8.6 10.3 RBC 2.54* 2.44* 2.51* HGB 9.7* 9.1* 9.3* HCT 30.9* 29.6* 30.0* MCV 121.7* 121.3* 119.5* MCH 38.2* 37.3* 37.1* MCHC 31.4 30.7 31.0 RDW 13.7 13.3 13.2 PLT 293 253 275 MPV 11.1 11.3 11.8 Chemistry: Recent Labs 03/27/25 1455 03/29/25 0624 03/30/25 06 NA 132* 133* 135* K 4.1 4.2 3.2* CL 105 102 100 CO2 21 24 25 GLUCOSE 120* 82 76 BUN 3* 2* 3* CREATININE 0.3* 0.4* 0.4* MG -- -- 1.3* ANIONGAP 6* 7* 10 LABGLOM >90 >90 >90 CALCIUM 7.6* 8.5* 8.2* Recent Labs 03/28/25 0426 03/29/25 0624 03/30/25 0626 AST 66* 78* 84* ALT 35 30 30 ALKPHOS 192* 193* 186* BILITOT 4.1* 4.2* 3.3* BILIDIR 3.3* 3.0* 2.6* ABG:No results found for: POCPH , PHART , PH , POCPCO2 , UUH4DQT , PCO2 , POCPO2 , PO2ART , PO2 , POCHCO3 , PKE7DFQ , HCO3 , NBEA , PBEA , BEART , BE , THGBART , THB , EAU8BTV , IJIN1EDX , B6TLMXEL , O2SAT , FIO2 No results found for: SPECIAL No results found for: CULTURE Radiology: No results found. Physical Examination: Physical Exam Constitutional: Appearance: She is well-developed. HENT: Head: Normocephalic and atraumatic. Eyes: General: Scleral icterus present. Left eye: No discharge. Pupils: Pupils are equal, round, and reactive to light. Neck: Thyroid: No thyromegaly. Vascular: No JVD. Cardiovascular: Rate and Rhythm: Normal rate and regular rhythm. Heart sounds: Normal heart sounds. No murmur heard. Pulmonary: Effort: Pulmonary effort is normal. Breath sounds: Normal breath sounds. No wheezing. Abdominal: General: Bowel sounds are normal. There is no distension. Palpations: Abdomen is soft. Tenderness: There is abdominal tenderness. There is no rebound. Musculoskeletal: General: No tenderness. Normal range of motion. Cervical back: Normal range of motion and neck supple. Neurological: Mental Status: She is alert and oriented to person, place, and time. Cranial Nerves: No cranial nerve deficit. Psychiatric: Behavior: Behavior normal. Assessment: Hospital Problems Last Modified POA * (Principal) Acute cholecystitis 03/22/2025 Yes History of breast cancer 03/22/2025 Yes Restless legs 03/22/2025 Yes Tobacco user 03/22/2025 Yes Jaundice 03/22/2025 Yes Hepatic steatosis 03/22/2025 Yes Common bile duct dilatation 03/22/2025 Yes Unintended weight loss 03/22/2025 Yes Daily consumption of alcohol 03/22/2025 Yes Generalized abdominal pain 03/22/2025 Yes Gastritis without bleeding 03/25/2025 Yes Adenomatous polyp of ascending colon 03/25/2025 Yes Hypotension 03/26/2025 Yes Plan: Transaminitis secondary to acute cholecystitis with concern for choledocholithiasis-evaluated by GIeval. S/p MRCP concerning for pancreatitis versus CBD stricture with no evidence of choledocholithiasis or intrahepatic bile duct dilatation. Also concerning for cholecystitis. S/p EGD-minimal esophagitis with patent schatzki. Mild PHG r/o cirrhosis. Colonoscopy-6 mm ascending polyp, 4 mm polyps in sigmoid,Mild sigmoid diverticulosis, Small internal and external hemorrhoids. No evidence of bleed. S/p ENDOSCOPIC RETROGRADE CHOLANGIOPANCREATOGRAPHY STENT INSERTION on 03/26 Final GI recommendation to watch for post ERCP complication, follow LFT and repeat x-ray of the abdomen in 48 hours to document passage of the PD stent S/p ROBOTIC LAPAROSCOPIC CHOLECYSTECTOMY on 03/29 Esophagitis with patent Schatzki : Continue PPI, GI is following Concern for cirrhosis- US organ elastography.GI following Nausea vomiting diarrhea and unintentional weight loss multifactorial secondary to cholecystitis, colitis and alcohol use. Supportive care. Electrolyte replacements as needed. Hypotension- fluid bolus. Midodrine 10 TID. Correct electrolyte abnormality Alcohol use disorder-thiamine folate multivitamin. CIWA if needed. Monitor for withdrawals. Leukocytosis-resolving, secondary to above. Continue Zosyn. History of breast cancer approximately 6 years prior status post lumpectomy and 5 years of tamoxifen Disposition S/p ROBOTIC LAPAROSCOPIC CHOLECYSTECTOMY on 03/29, remain on severe pain, she will need to continueIV antibiotics today will consider discharge patient tomorrow morning if her pain is controlled , need to replace electrolyte Marvel Ng MD 03/30/2025 11:06 AM * Mini Tracy DO - 03/30/2025 7:25 AM EDT Images from the original note were not included. PROGRESS NOTE PATIENT NAME: Eneida [facility] DATE: 03/30/2025 Hospital Day: # 8 DIAGNOSIS AND PLAN Patient is a 49-year-old female presented with abdominal pain, vomiting, and diarrhea with symptomsand imaging concerning for cholecystitis. S/p ERCP with sphincterectomy and biliary stent placement. Sludge identified without stone. S/p robotic laparoscopic cholecystectomy on 03/29. Patient doing well postoperatively. Trialing regular diet this morning. Zosyn for 24 hours. Pain and nausea control as needed. Okay for DVT prophylaxis from surgical standpoint. If patient is able to tolerate regular diet, okay for discharge. Rest of care per primary team. Chief Complaint: Incision site tenderness SUBJECTIVE Patient seen and examined at bedside's morning. Patient is afebrile, hemodynamically stable, on room air. No acute events overnight. Endorsing tenderness at incision sites. Denies nausea or vomiting.Denies flatus or BM. OBJECTIVE VITALS: Vitals: 03/30/25 0424 BP: (!) 89/60 Pulse: 63 Resp: 16 Temp: 97.9 ??F (36.6 ??C) SpO2: GENERAL: No acute distress. Mildly uncomfortable. NEURO: Alert and oriented. HEENT: Trachea midline. Scleral icterus. LUNGS: Normal work of breathing. On room air. HEART: Regular rate and rhythm. ABDOMEN: Soft and nondistended. Tenderness at incision sites. EXTREMITY: Moving all extremities. SKIN: Well-perfused. Subtle jaundice. INCISION: CDI. Dermabond intact. LAB: CBC: Recent Labs 03/27/25 1126 03/29/25 0624 WBC 12.0* 8.6 HGB 9.7* 9.1* HCT 30.9* 29.6* MCV 121.7* 121.3* PLT 293 253 BMP: Recent Labs 03/27/25 1455 03/29/25 0624 NA 132* 133* K 4.1 4.2 CL 105 102 CO2 21 24 BUN 3* 2* CREATININE 0.3* 0.4* GLUCOSE 120* 82 RADIOLOGY: XR ABDOMEN (KUB) (SINGLE AP VIEW) Result Date: 03/27/2025 1. Presumed vicarious contrast excretion within the gallbladder, cholelithiasis. 2. Unremarkable bowel gas pattern. 3. No radiopaque urinary collecting system calculus evident. US ORGAN ELASTOGRAPHY Result Date: 03/25/2025 1. Limited visualization of the liver to evaluate stiffness as below. The visualized liver demonstrates increased echogenicity corresponding with severe steatosis seen on MRI. Coarsened liver echotexture suggests a degree of underlying fibrotic change with no obvious findings of cirrhosis, although evaluation is limited by lack of routine right upper quadrant sonographic images. 2. Liver stiffness of 13.47 kPa, correlating with a Metavir score of F4 (cirrhosis, >11.9 kPa). MRI ABDOMEN W WO CONTRAST MRCP Result Date: 03/24/2025 1. Nonspecific edema seen at the [place] hepatis/extrahepatic common bile duct and pancreatic body raised the possibility pancreatitis versus CBD stricture. No definite evidence of choledocholithiasis or intrahepatic bile dilatation. 2. Nonspecific gallbladder wall thickening with cholelithiasis, raising the possibility of cholecystitis. Mini Tracy DO 03/30/2025, 7:25 AM Cosigned by Brad Chino MD at 03/30/2025 8:45 PM EDT Associated attestation - Brad Chino MD - 03/30/2025 8:45 PM EDT I personally examined the patient, directed the medical decision-making, and am in agreement with the Resident/JAMILA after the physical/radiologic exam and laboratory values were reviewed and confirmed. Emmy Chino MD, [facility] Acute Care Surgery Attending [facility] * Gonzalez Mary, RD - 03/29/2025 2:47 PM EDT Nutrition Assessment Type and Reason for Visit: Reassess Nutrition Recommendations/Plan: Modify ONS order to send chocolate flavor per patient preference Malnutrition Assessment: Malnutrition Status: At risk for malnutrition Nutrition Assessment: Pt was previously on Low Fat/Cardiac diet with improved intake, 51-100% of meals consumed. Pt was NPO for Lap Leni today, now back in room and started on Regular diet with Ensure ordered TID with meals, which ic appropriate. Pt reports she does like and drink the Ensure and prefers chocolate. Willmodify order to reflect Pt preference. Pt currently with hamburger and tamazight fries on her lunch tray, and states she has been working on this for about an hour, though it appears very little has been consumed. This handbook writer did encourage low fat meals/snacks and verbally reviewed low fat diet and low fat options wtih patient, who verbalizes understanding. However, Pt does not want diet order mcintosh ged to low fat at this time. Encouraged Pt to sip on ONS between meals, and encouraged use of ONS at home if appetite/intake are poor. Encouraged Pt to ask for RD if further questions/concerns arise.No new weight available to assess. Estimated Daily Nutrient Needs: Energy (kcal): 1600-1800kcals/day Weight Used for Energy Requirements: Current Protein (g): 80-90g protein/d Weight Used for Protein Requirements: Current Fluid (ml/day): or per medical team Method Used for Fluid Requirements: 1 ml/kcal Nutrition Related Findings: Meds/Labs reviewed. 1+ BLE edema. Last BM 03/28 Wound Type: Surgical Incision Current Nutrition Therapies: ADULT DIET; Regular ADULT ORAL NUTRITION SUPPLEMENT; Breakfast, Lunch, Dinner; Standard High Calorie/High Protein Oral Supplement Anthropometric Measures: Height: 170.2 cm (5' 7.01 ) Current Body Wt: 54.1 kg (119 lb 4.3 oz) BMI: 18.7 Nutrition Diagnosis: Inadequate oral intake related to nausea/vomiting/diarrhea as evidenced by poor intake prior to admission Nutrition Interventions: Food and/or Nutrient Delivery: Modify Oral Nutrition Supplement, Continue Current Diet Nutrition Education/Counseling: Survival skills/brief education completed Coordination of Nutrition Care: Continue to monitor while inpatient Plan of Care discussed with: Patient Goals: Goals: PO intake 50% or greater, prior to discharge Type of Goal: New goal Previous Goal Met: Goal(s) Achieved Nutrition Monitoring and Evaluation: Behavioral-Environmental Outcomes: None Identified Food/Nutrient Intake Outcomes: Food and Nutrient Intake, Supplement Intake Physical Signs/Symptoms Outcomes: Biochemical Data, GI Status, Weight Discharge Planning: Continue current diet Mary Roth RD Contact: * Dimas Andujar MD - 03/29/2025 12:44 PM EDT [facility] Note Eneida Mejia is a 49 y.o. female patient. Hospitalization Day:7 Chief consult reason: Jaundice Subjective: Patient seen and examined at bedside. Jaundice improving. Abdominal pain in the epigastric area still persist. Surgery planning for lap leni today Objective: VITALS: BP 111/72 Pulse 66 Temp 97.2 ??F (36.2 ??C) (Temporal) Resp 11 Ht 1.702 m (5' 7.01 ) Wt 54.1 kg (119 lb 4.3 oz) SpO2 100% BMI 18.68 kg/m?? TEMPERATURE: Current - Temp: 97.2 ??F (36.2 ??C); Max - Temp Av.4 ??F (36.9 ??C) Min: 97.2 ??F(36.2 ??C) Max: 98.9 ??F (37.2 ??C) Physical Assessment: General appearance: alert, cooperative and no distress Mental Status: oriented to person, place and time and normal affect Lungs: normal effort Heart: regular rate Abdomen: soft, moderate epigastric tenderness, mildly distended Extremities: no edema, redness, tenderness in the calves Skin: no gross lesions, some rosacea and jaundice CURRENT MEDICATIONS: Scheduled Meds: fentaNYL sodium chloride flush 5-40 mL IntraVENous 2 times per day [Transfer Hold] potassium chloride 10 mEq IntraVENous Once [Transfer Hold] midodrine 10 mg Oral TID WC [Transfer Hold] midodrine 10 mg Oral Once [Transfer Hold] metroNIDAZOLE Topical BID [Transfer Hold] potassium chloride 20 mEq Oral Daily [Transfer Hold] sodium chloride flush 5-40 mL IntraVENous 2 times per day [Held by provider] enoxaparin 40 mg SubCUTAneous Daily [Transfer Hold] piperacillin-tazobactam 3,375 mg IntraVENous Q8H [Transfer Hold] pantoprazole (PROTONIX) 40 mg in sodium chloride (PF) 0.9 % 10 mL injection 40 mg IntraVENous Daily Continuous Infusions: sodium chloride [Transfer Hold] sodium chloride PRN Meds:fentaNYL, naloxone 0.4 mg in 10 mL sodium chloride syringe, sodium chloride flush, sodium chloride, fentanNYL, HYDROmorphone, oxyCODONE OR oxyCODONE, diphenhydrAMINE, droPERidol, prochlorperazine, labetalol OR hydrALAZINE, [Transfer Hold] bisacodyl, [Transfer Hold] oxyCODONE-acetaminophen, [Transfer Hold] magnesium sulfate, [Transfer Hold] sodium chloride flush, [Transfer Hold] calcium carbonate, [Transfer Hold] aluminum & magnesium hydroxide-simethicone, [Transfer Hold] sodium chloride flush, [Transfer Hold] sodium chloride, [Transfer Hold] potassium chloride OR [Transfer Hold] potassium alternative oral replacement OR [Transfer Hold] potassium chloride, [Transfer Hold] ondansetron OR [Transfer Hold] ondansetron, [Transfer Hold] acetaminophen OR [Transfer Hold] acetaminophen, [Transfer Hold] polyethylene glycol, [Transfer Hold] HYDROmorphone, [Transfer Hold] melatonin, [Transfer Hold] rOPINIRole Data Review: LABS and IMAGING: CBC Recent Labs 03/27/25 1126 03/29/25 0624 WBC 12.0* 8.6 HGB 9.7* 9.1* HCT 30.9* 29.6* MCV 121.7* 121.3* MCHC 31.4 30.7 RDW 13.7 13.3 PLT 293 253 Immature PLTs No results found for: PLTFLUORE PT/INR No results for input(s): PROTIME , INR in the last 72 hours. ANEMIA STUDIES No results for input(s): IRONPERSAT , TIBC , IRON , FERRITIN , MEAOCPFX74 , FOLATE , OCCULTBLD in the last 72 hours. BMP Recent Labs 03/27/25 1455 03/29/25 0624 NA 132* 133* K 4.1 4.2 CL 105 102 CO2 21 24 BUN 3* 2* CREATININE 0.3* 0.4* GLUCOSE 120* 82 CALCIUM 7.6* 8.5* LFTS Recent Labs 03/27/25 1455 03/28/25 0426 03/29/25 0624 ALKPHOS 178* 192* 193* ALT 35 35 30 AST 69* 66* 78* BILITOT 4.2* 4.1* 4.2* BILIDIR -- 3.3* 3.0* ALBUMIN 2.5* 2.6* 2.6* AMYLASE/LIPASE/AMMONIA No results for input(s): AMYLASE , LIPASE , AMMONIA in the last 72 hours. Acute Hepatitis Panel No results found for: HEPBSAG , HEPCAB , HEPBIGM , HEPAIGM HCV Genotype No components found for: HEPATITISCGENOTYPE HCV Quantitative No results found for: HEPATITISCRNAPCRQUANT LIVER WORK UP: AFP No results found for: AFP Alpha 1 antitrypsin No results found for: A1A Anti - Liver/Kidney Ab No results found for: LIVER-KIDNEYMICROSOMALAB FABIANA No results found for: FABIANA AMA No results found for: MITOAB ASMA No results found for: SMOOTHMUSCAB Ceruloplasmin No results found for: CERULOPLSM Celiac panel No results found for: TISSTRNTIIGG , TTGIGA , IGA IgG No results found for: IGG IgM No results found for: IGM GGT No results found for: GGT PT/INR No results for input(s): PROTIME , INR in the last 72 hours. Cancer Markers: CEA: No results found for: CEA Ca 125: No results found for: CA125 Ca 19-9: No results found for: CA199 AFP: No results found for: AFP Lactic acid:No results for input(s): LACTACIDWB in the last 72 hours. ENDOSCOPY Principal Problem: Acute cholecystitis Active Problems: History of breast cancer Restless legs Tobacco user Jaundice Hepatic steatosis Common bile duct dilatation Unintended weight loss Daily consumption of alcohol Generalized abdominal pain Gastritis without bleeding Adenomatous polyp of ascending colon Hypotension Resolved Problems: * No resolved hospital problems. * GI Assessment: Abdominal pain, weight loss, nausea, vomiting, change in bowel habits, jaundice in the setting of daily / heavy etoh intake. Hx breast cancer post left lumpectomy approximately 6 years ago followed by 5 years of tamoxifen Rosacea Concern for acute cholecystitis on imaging with GB wall thickening, normal CBD, no evidence of ductdilation or CBD stone Chronic inflammatory changes of chronic colitis most prominent ascending colon. EGD Minimal esophagitis with patent Schatzki Mild PHG-biopsied Colonosopy polypectomy x 2, Mild sigmoid diverticulosis, Small internal and external hemorrhoids, No evidence of bleed EUS/ERCP: sphincterotomy was performed, sludge removed, no obvious distal CBD stricture seen on cholangiogram there was paucity of contrast flow across the ampulla. Therefore a 10 Afghan by 7 cm plastic biliary stent was placed across the ampulla with good flow of bile and contrast seen post deployment. RECOMMENDATIONS: Surgery planning for lap leni Since LFTs remain elevated high bilirubin is due to alcoholic hepatitis. Expect slow improvement over the upcoming weeks as long as she avoids hepatotoxins including alcohol Repeat x-ray of the abdomen in 48 hours to document passage of the PD stent. If Dced XR abd within a week to document PD passage Repeat ERCP in 4 weeks for biliary stent removal. Monitor hemoglobin and stool for blood F/U Biopsies PPI Complete alcohol cessation Stool studies negative for infection GI will sign off. Outpatient follow-up for ERCP stent removal in 4 weeks and subsequently for cirrhosis care. Please call with questions Spent 50 minutes on this date of service including chart prep, patient interaction, discussion withprimary team, documentation and coordination of care for the above conditions Thank you for allowing us to participate in the care of your patient. Please feel free to contact me with any questions or concerns. Please note that this note was generated using a voice recognition dictation software. Although every effort was made to ensure the accuracy of this automated voice teacher, some errors in voice teacher may have occurred. * Marvel Ng MD - 03/29/2025 11:07 AM EDT Images from the original note were not included. [facility] Office: [phone] Marquez Scott DO, Garth Casanova DO, Kenny Vicente DO, Edu Akers DO, Ubaldo Nava MD, Yasmeen Day MD, Darian Covarrubias MD, Pauly Keane MD, Terence Marte MD, Cordelia Medina MD, Sana Guaman MD, Tania Forman DO, Luigi Scott DO, Kaylie Briones MD, Ariel Glez DO, Emily Miller MD, Catina Melissa MD, Josias Corona MD, Jamil Louie MD, Carlyle Bledsoe MD,Estefany Badillo MD, Marvel Ng MD, Elvis Malave MD, Natalie Monroe MD, Jarred Dias DO,Yahaira Ma MD, Connor Neal DO, Kingsley James MD, Francisco Licona MD, Tania Bustillos MD, Manuel Bustillos MD, Berry Holder MD, Ruth Causey, SVP, Za Del Valle, SVP, Jarred Sandoval, SVP, Declan, [facility], Gabby Epstein, SVP, Carmen Pack, SVP, Amber Del Toro, SVP, Lula Alvarado, SVP, Julia Ortiz, PA-C, Linda Guidry, SVP, Lillie Gipson, SVP, Magaly Lind, SVP, Ni Rodriguez, SVP, Shaun Cabrales, PA-C, Danica Hernandez PA-C, Shivani Díaz, SVP, Lily Esteves, [facility], Tracy Richardson, [facility], Carmela Wills, [facility], Sheila Smith, [facility], Kate Macias, [facility], Jeanie Fox, [facility] IN-PATIENT SERVICE [facility] Progress Note 03/29/2025 11:08 AM Name: Eneida Mejia Acct: [id number] Room: [facility] IP Day: 7 Admit Date: 03/22/2025 7:27 PM PCP: Sudhir Gonzalez MD Code Status: Full Code Subjective: C/C: N/V/Abd pain/diarrhea Interval History Status: Not changed S/p ROBOTIC LAPAROSCOPIC CHOLECYSTECTOMY on 03/29 She was seen after the procedure eating her food, no report pain 12/20 in severity denies any other complaint 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 Reported nausea vomiting diarrhea, abd pain and unintentional weight loss since last [address] abdomen pelvis showed GB distention with CBD dilation. GI consulted. 03/25-S/p EGD-minimal esophagitis with patent schatzki. Mild PHG r/o cirrhosis. Colonoscopy-6 mm ascending polyp, 4 mm polyps in sigmoid, Mild sigmoid diverticulosis, Small internal and external hemorrhoids. No evidence of bleed. Review of Systems: Review of Systems Constitutional: Negative for chills, fatigue and fever. HENT: Negative for congestion, hearing loss and rhinorrhea. Respiratory: Negative for cough, shortness of breath and wheezing. Cardiovascular: Negative for chest pain, palpitations and leg swelling. Gastrointestinal: Positive for abdominal pain. Negative for abdominal distention and vomiting. Endocrine: Negative for polydipsia and polyphagia. Genitourinary: Negative for difficulty urinating and dysuria. Musculoskeletal: Negative for arthralgias and back pain. Skin: Negative for rash and wound. Neurological: Negative for dizziness, seizures, light-headedness and headaches. Psychiatric/Behavioral: Negative for agitation and behavioral problems. Medications: Allergies: Allergies Allergen Reactions Morphine Rash Patient reports rash and redness to bilateral hands and arms after receiving. Current Meds: Scheduled Meds: fentaNYL midazolam 2 mg IntraVENous Once [Transfer Hold] potassium chloride 10 mEq IntraVENous Once [Transfer Hold] midodrine 10 mg Oral TID WC [Transfer Hold] midodrine 10 mg Oral Once [Transfer Hold] metroNIDAZOLE Topical BID [Transfer Hold] potassium chloride 20 mEq Oral Daily [Transfer Hold] sodium chloride flush 5-40 mL IntraVENous 2 times per day [Held by provider] enoxaparin 40 mg SubCUTAneous Daily [Transfer Hold] piperacillin-tazobactam 3,375 mg IntraVENous Q8H [Transfer Hold] pantoprazole (PROTONIX) 40 mg in sodium chloride (PF) 0.9 % 10 mL injection 40 mg IntraVENous Daily Continuous Infusions: sod chloride IRR soln [Transfer Hold] sodium chloride PRN Meds: fentaNYL, sod chloride IRR soln, [Transfer Hold] bisacodyl, [Transfer Hold] oxyCODONE-acetaminophen, [Transfer Hold] magnesium sulfate, [Transfer Hold] sodium chloride flush, [Transfer Hold] calcium carbonate, [Transfer Hold] aluminum & magnesium hydroxide-simethicone, [Transfer Hold]sodium chloride flush, [Transfer Hold] sodium chloride, [Transfer Hold] potassium chloride OR [Transfer Hold] potassium alternative oral replacement OR [Transfer Hold] potassium chloride, [Transfer Hold] ondansetron OR [Transfer Hold] ondansetron, [Transfer Hold] acetaminophen OR [Transfer Hold] acetaminophen, [Transfer Hold] polyethylene glycol, [Transfer Hold] HYDROmorphone, [Transfer Hold] melatonin, [Transfer Hold] rOPINIRole Data: Past Medical History: has a past medical history of Cancer (HCC), History of breast cancer, and Restless legs. Social History: reports that she has been smoking cigarettes. She started smoking about 29 years ago. She has a 29.4 pack-year smoking history. She does not have any smokeless tobacco history on file. She reports current alcohol use of about 3.0 standard drinks of alcohol per week. She reports thatshe does not currently use drugs. Family History: History reviewed. No pertinent family history. Vitals: BP (!) 134/94 Pulse 64 Temp 97.5 ??F (36.4 ??C) (Temporal) Resp 15 Ht 1.702 m (5' 7.01 ) Wt 54.1 kg (119 lb 4.3 oz) SpO2 99% BMI 18.68 kg/m?? Temp (24hrs), Av.6 ??F (37 ??C), Min:97.5 ??F (36.4 ??C), Max:98.9 ??F (37.2 ??C) No results for input(s): POCGLU in the last 72 hours. I/O (24Hr): Intake/Output Summary (Last 24 hours) at 03/29/2025 1108 Last data filed at 03/29/2025 0026 Gross per 24 hour Intake 1606.34 ml Output -- Net 1606.34 ml Labs: Hematology: Recent Labs 03/27/25 1126 03/29/25 0624 WBC 12.0* 8.6 RBC 2.54* 2.44* HGB 9.7* 9.1* HCT 30.9* 29.6* MCV 121.7* 121.3* MCH 38.2* 37.3* MCHC 31.4 30.7 RDW 13.7 13.3 PLT 293 253 MPV 11.1 11.3 Chemistry: Recent Labs 03/27/25 1455 03/29/25 0624 NA 132* 133* K 4.1 4.2 CL 105 102 CO2 21 24 GLUCOSE 120* 82 BUN 3* 2* CREATININE 0.3* 0.4* ANIONGAP 6* 7* LABGLOM >90 >90 CALCIUM 7.6* 8.5* Recent Labs 03/27/25 1455 03/28/25 0426 03/29/25 0624 AST 69* 66* 78* ALT 35 35 30 ALKPHOS 178* 192* 193* BILITOT 4.2* 4.1* 4.2* BILIDIR -- 3.3* 3.0* ABG:No results found for: POCPH , PHART , PH , POCPCO2 , ALV5ITY , PCO2 , POCPO2 , PO2ART , PO2 , POCHCO3 , FRX4SAB , HCO3 , NBEA , PBEA , BEART , BE , THGBART , THB , ZNT1NUE , BJEK6QWN , R5ROUSIK , O2SAT , FIO2 No results found for: SPECIAL No results found for: CULTURE Radiology: No results found. Physical Examination: Physical Exam Constitutional: Appearance: She is well-developed. HENT: Head: Normocephalic and atraumatic. Eyes: General: Scleral icterus present. Left eye: No discharge. Pupils: Pupils are equal, round, and reactive to light. Neck: Thyroid: No thyromegaly. Vascular: No JVD. Cardiovascular: Rate and Rhythm: Normal rate and regular rhythm. Heart sounds: Normal heart sounds. No murmur heard. Pulmonary: Effort: Pulmonary effort is normal. Breath sounds: Normal breath sounds. No wheezing. Abdominal: General: Bowel sounds are normal. There is no distension. Palpations: Abdomen is soft. Tenderness: There is abdominal tenderness. There is no rebound. Musculoskeletal: General: No tenderness. Normal range of motion. Cervical back: Normal range of motion and neck supple. Neurological: Mental Status: She is alert and oriented to person, place, and time. Cranial Nerves: No cranial nerve deficit. Psychiatric: Behavior: Behavior normal. Assessment: Hospital Problems Last Modified POA * (Principal) Acute cholecystitis 03/22/2025 Yes History of breast cancer 03/22/2025 Yes Restless legs 03/22/2025 Yes Tobacco user 03/22/2025 Yes Jaundice 03/22/2025 Yes Hepatic steatosis 03/22/2025 Yes Common bile duct dilatation 03/22/2025 Yes Unintended weight loss 03/22/2025 Yes Daily consumption of alcohol 03/22/2025 Yes Generalized abdominal pain 03/22/2025 Yes Gastritis without bleeding 03/25/2025 Yes Adenomatous polyp of ascending colon 03/25/2025 Yes Hypotension 03/26/2025 Yes Plan: Transaminitis secondary to acute cholecystitis with concern for choledocholithiasis-evaluated by GIeval. S/p MRCP concerning for pancreatitis versus CBD stricture with no evidence of choledocholithiasis or intrahepatic bile duct dilatation. Also concerning for cholecystitis. S/p EGD-minimal esophagitis with patent schatzki. Mild PHG r/o cirrhosis. Colonoscopy-6 mm ascending polyp, 4 mm polyps in sigmoid,Mild sigmoid diverticulosis, Small internal and external hemorrhoids. No evidence of bleed. S/p ENDOSCOPIC RETROGRADE CHOLANGIOPANCREATOGRAPHY STENT INSERTION on 03/26 Final GI recommendation to watch for post ERCP complication, follow LFT and repeat x-ray of the abdomen in 48 hours to document passage of the PD stent S/p ROBOTIC LAPAROSCOPIC CHOLECYSTECTOMY on 03/29 Esophagitis with patent Schatzki : Continue PPI, GI is following Concern for cirrhosis- US organ elastography.GI following Nausea vomiting diarrhea and unintentional weight loss multifactorial secondary to cholecystitis, colitis and alcohol use. Supportive care. Electrolyte replacements as needed. Hypotension- fluid bolus. Midodrine 10 TID. Correct electrolyte abnormality Alcohol use disorder-thiamine folate multivitamin. CIWA if needed. Monitor for withdrawals. Leukocytosis-resolving, secondary to above. Continue Zosyn. History of breast cancer approximately 6 years prior status post lumpectomy and 5 years of tamoxifen Disposition S/p ROBOTIC LAPAROSCOPIC CHOLECYSTECTOMY on 03/29, remain on severe pain will consider discharge patient tomorrow morning if her pain controlled and if okay with general surgery Marvel Ng MD 03/29/2025 11:08 AM * Cheli Perez DO - 03/29/2025 7:17 AM EDT Images from the original note were not included. PROGRESS NOTE PATIENT NAME: Eneida [facility] DATE: 03/29/2025 Hospital Day: # 7 DIAGNOSIS AND PLAN Acute cholecystitis with choledocholithiasis Plan for robotic cholecystectomy today Npo Chief Complaint: abdominal pain SUBJECTIVE Af. Vss. Pain present but controlled. No nasuea OBJECTIVE VITALS: Vitals: 03/29/25 1554 BP: 119/76 Pulse: 57 Resp: 14 Temp: 97.5 ??F (36.4 ??C) SpO2: 100% Physical Exam Constitutional: Appearance: She is obese. HENT: Right Ear: External ear normal. Left Ear: External ear normal. Mouth/Throat: Mouth: Mucous membranes are moist. Pharynx: Oropharynx is clear. Eyes: Extraocular Movements: Extraocular movements intact. Pupils: Pupils are equal, round, and reactive to light. Cardiovascular: Rate and Rhythm: Normal rate and regular rhythm. Pulses: Normal pulses. Pulmonary: Effort: Pulmonary effort is normal. Abdominal: General: There is no distension. Palpations: Abdomen is soft. Tenderness: There is no abdominal tenderness. Musculoskeletal: General: No swelling. Normal range of motion. Cervical back: Normal range of motion. Skin: General: Skin is warm. Capillary Refill: Capillary refill takes less than 2 seconds. Neurological: General: No focal deficit present. Mental Status: She is oriented to person, place, and time. LAB: CBC: Recent Labs 03/27/25 1126 03/29/25 0624 WBC 12.0* 8.6 HGB 9.7* 9.1* HCT 30.9* 29.6* MCV 121.7* 121.3* PLT 293 253 BMP: Recent Labs 03/27/25 1455 03/29/25 0624 NA 132* 133* K 4.1 4.2 CL 105 102 CO2 21 24 BUN 3* 2* CREATININE 0.3* 0.4* GLUCOSE 120* 82 RADIOLOGY: XR ABDOMEN (KUB) (SINGLE AP VIEW) Result Date: 03/27/2025 1. Presumed vicarious contrast excretion within the gallbladder, cholelithiasis. 2. Unremarkable bowel gas pattern. 3. No radiopaque urinary collecting system calculus evident. US ORGAN ELASTOGRAPHY Result Date: 03/25/2025 1. Limited visualization of the liver to evaluate stiffness as below. The visualized liver demonstrates increased echogenicity corresponding with severe steatosis seen on MRI. Coarsened liver echotexture suggests a degree of underlying fibrotic change with no obvious findings of cirrhosis, although evaluation is limited by lack of routine right upper quadrant sonographic images. 2. Liver stiffness of 13.47 kPa, correlating with a Metavir score of F4 (cirrhosis, >11.9 kPa). MRI ABDOMEN W WO CONTRAST MRCP Result Date: 03/24/2025 1. Nonspecific edema seen at the vernon hepatis/extrahepatic common bile duct and pancreatic body raised the possibility pancreatitis versus CBD stricture. No definite evidence of choledocholithiasis or intrahepatic bile dilatation. 2. Nonspecific gallbladder wall thickening with cholelithiasis, raising the possibility of cholecystitis. Cheli Perez DO 03/29/2025, 7:18 PM Cosigned by Manjula Sue MD at 03/30/2025 10:20 AM EDT Associated attestation - Manjula Sue MD - 03/30/2025 10:20 AM EDT I personally evaluated the patient and directed the medical decision making with Resident after thephysical/radiologic exam and laboratory values were reviewed and confirmed. Manjula Sue MD * Dimas Andujar MD - 03/28/2025 3:46 PM EDT [facility]'s Gastroenterology Progress Note Eneida Mejia is a 49 y.o. female patient. Hospitalization Day:6 Chief consult reason: Abdominal pain, diarrhea, elevated LFTs Subjective: She is feeling better but still with some abdominal pain. Tolerating small amount of food. No N/V. VITALS: BP (!) 103/59 Pulse 73 Temp 98.8 ??F (37.1 ??C) (Oral) Resp 16 Ht 1.702 m (5' 7.01 ) Wt 54.1 kg (119 lb 4.3 oz) SpO2 98% BMI 18.68 kg/m?? TEMPERATURE: Current - Temp: 98.8 ??F (37.1 ??C); Max - Temp Av.5 ??F (36.9 ??C) Min: 97.9 ??F(36.6 ??C) Max: 99.4 ??F (37.4 ??C) Physical Assessment: General appearance: alert, cooperative and no distress Mental Status: oriented to person, place and time and normal affect Lungs: normal effort Heart: regular rate Abdomen: soft, moderate epigastric tenderness, mildly distended Extremities: no edema, redness, tenderness in the calves Skin: no gross lesions, rashes, induration Data Review: Labs and Imaging: MRCP FINDINGS: LIVER: Severe loss of signal intensity seen on [id number] imaging consistent with severe hepatic steatosis. Mild hepatomegaly measuring 23 cm in craniocaudal dimension. GALLBLADDER AND BILIARY SYSTEM: Cholelithiasis and biliary sludge with nonspecific wall thickening. There is nonspecific edema seenat the vernon hepatis with inflammation seen near the expected location of the extrahepatic common bile duct, as well as fluid tracking into the falciform ligament and near the gallbladder and pancreatic body. There is some edema within the pancreatic body, raising the possibility of pancreatitis without ductal dilatation or a discrete lesion. No significant intrahepatic biliary dilatation. A portion of the extrahepatic bile duct near the vernon hepatis is not visualized, with the more distal aspect ofthe common bile duct at the level of the pancreatic head being normal. SPLEEN: Unremarkable. PANCREAS/PANCREATIC DUCT: There is some edema within the pancreatic body, raising the possibility of pancreatitis without ductal dilatation or a discrete lesion. No pancreatic ductal dilatation. ADRENAL GLANDS: Unremarkable. KIDNEYS: Unremarkable. LYMPH NODES: There are a few reactive, nonenlarged retroperitoneal lymph nodes. VASCULATURE: Unremarkable. PERITONEUM: Fluid tracking into the falciform ligament and near the gallbladder and pancreatic body. No ascites. ABDOMINAL WALL: No hernia. No mass. BOWEL: Grossly unremarkable. No bowel obstruction. BONES: No acute abnormality or worrisome osseous lesion. SOFT TISSUES: Unremarkable. MISCELLANEOUS: Trace bilateral pleural effusions, right greater than left. IMPRESSION: 1. Nonspecific edema seen at the vernon hepatis/extrahepatic common bile duct and pancreatic body raised the possibility pancreatitis versus CBD stricture. No definite evidence of choledocholithiasis or intrahepatic bile dilatation. 2. Nonspecific gallbladder wall thickening with cholelithiasis, raising the possibility of cholecystitis. CBC: Recent Labs 03/26/25 0646 03/27/25 1126 WBC 10.1 12.0* HGB 8.4* 9.7* MCV 120.0* 121.7* RDW 14.0 13.7 PLT 239 293 ANEMIA STUDIES: Recent Labs 03/25/25 1559 [id number] >2000* FOLATE 25.5* BMP: Recent Labs 03/26/25 0000 03/26/25 0646 03/27/25 1455 NA 127* 133* 132* K 3.5* 3.6* 4.1 CL 98 105 105 CO2 23 21 21 BUN <2* <2* 3* CREATININE 0.3* 0.3* 0.3* GLUCOSE 113* 94 120* CALCIUM 7.0* 7.1* 7.6* LFTS: Recent Labs 03/26/25 0000 03/26/25 0646 03/27/25 1455 03/28/25 0426 ALKPHOS 219* 206* 178* 192* ALT 52* 46* 35 35 AST 96* 82* 69* 66* BILITOT 5.8* 5.0* 4.2* 4.1* BILIDIR -- -- -- 3.3* Other pertinent labs: MELD 3.0: 19 at 03/26/2025 6:46 AM MELD-Na: 17 at 03/26/2025 6:46 AM Calculated from: Serum Creatinine: 0.3 mg/dL (Using min of 1 mg/dL) at 03/26/2025 6:46 AM Serum Sodium: 133 mmol/L at 03/26/2025 6:46 AM Total Bilirubin: 5 mg/dL at 03/26/2025 6:46 AM Serum Albumin: 2.5 g/dL at 03/26/2025 6:46 AM INR(ratio): 1.1 at 03/24/2025 6:30 AM Age at listing (hypothetical): 49 years Sex: Female at 03/26/2025 6:46 AM Gastroenterology impression and plan: Abdominal pain, weight loss, nausea, vomiting, change in bowel habits, jaundice in the setting of daily / heavy etoh intake. Concern for acute cholecystitis on imaging with GB wall thickening, normal CBD, no evidence of ductdilation or CBD stone, fatty liver Chronic inflammatory changes of chronic colitis most prominent ascending colon. EGD Minimal esophagitis with patent Schatzki Mild PHG-biopsied Colonosopy polypectomy x 2, Mild sigmoid diverticulosis, Small internal and external hemorrhoids, No evidence of bleed EUS/ERCP: sphincterotomy was performed, sludge removed, no obvious distal CBD stricture seen on cholangiogram there was paucity of contrast flow across the ampulla. Therefore a 10 Afghan by 7 cm plastic biliary stent was placed across the ampulla with good flow of bile and contrast seen post deployment. Hx breast cancer post left lumpectomy approximately 6 years ago followed by 5 years of tamoxifen Labs suggest Etoh hepatitis, but would not tx with prednisolone until we can rule out bleeding, infection She has a degree of chronic liver disease from etoh. RECOMMENDATIONS: Consult to surgery for cholecystitis Since LFTs remain elevated high bilirubin is due to alcoholic hepatitis Repeat x-ray of the abdomen in 48 hours to document passage of the PD stent. If Dced XR abd within a week to document PD passage Repeat ERCP in 4 weeks for biliary stent removal. Monitor hemoglobin and stool for blood F/U Biopsies PPI Complete alcohol cessation Stool studies negative for infection Will continue to follow This plan was formulated in collaboration with Dr. Pratima MD Thank you for allowing me to participate in the care of your patient. Please feel free to contact me with any questions or concerns. [facility] Gastroenterology Reba Gonzalez PA-C [phone] 03/28/2025 3:46 PM Attending Physician Attestation: I have discussed the care of Eneida Mejia and I have examined the patient myselft and taken ros and hpi , including pertinent history and exam findings, with the author of this note . I have reviewed the lei elements of all parts of the encounter with the nurse practitioner/resident. I agree with the assessment, plan and orders as documented by the above health care provider with the following addendum. More than 50% of the time was spent taking care of this patient in addition to the nurse practitioner time. That also included history taking follow-up physical examination and review of system. * Mini TracyDO - 03/28/2025 1:18 PM EDT General Surgery Consult PATIENT NAME: Eneida Mejia AGE: 49 y.o. DATE: 03/28/2025 SURGEON: PRIMARY CARE PHYSICIAN: Sudhir Gonzalez MD Patient evaluated at the request of Dr. GONZALEZ Reason for evaluation: Cholecystitis Patient information was obtained from patient. History/Exam limitations: none. Patient presented to the Emergency Department ambulatory. IMPRESSION: Patient Active Problem List Diagnosis Acute cholecystitis Asymptomatic microscopic hematuria History of breast cancer Restless legs Tobacco user Vomiting Hypertension Jaundice Hepatic steatosis Common bile duct dilatation Unintended weight loss Daily consumption of alcohol Generalized abdominal pain Gastritis without bleeding Adenomatous polyp of ascending colon Hypotension PLAN: Patient is a 49-year-old female presented with abdominal pain, vomiting, and diarrhea with symptomsand imaging concerning for cholecystitis. S/p ERCP with sphincterectomy and biliary stent placement. Sludge identified without identified stone. Case staffed with on-call surgical attending. Plan for cholecystectomy on 03/29. Will obtain consent. NPO at midnight. HISTORY: History of Chief Complaint: Patient is a 49-year-old female with history of breast cancer s/p lumpectomy, tobacco user, and alcohol drinker who presented from [facility] on 03/22/2025 for elevated bilirubin and CT demonstrating CBD dilation and gallbladder wall thickening concerning for acute [facility]stit[facility] generalized [facility], several weeks of vomiting, diarrhea, and a 10 pound weight loss. Patient underwent MRI on 03/24 which did not reveal choledocholithiasis or intrahepatic bile dilation. It did demonstrate gallbladder wall thickening with cholelithiasis concerning for cholecystitis. Patient underwent ERCP on 03/26 with GI which revealed a mildly dilated CBD and CHD with no filling defects or strictures seen. A sphincterectomy was performed and a biliary stent was placed. Sludge was identified without any identified stones. General surgery was consulted to furtherevaluate patient for possible surgical intervention. Past Medical History has a past medical history of Cancer (HCC), History of breast cancer, and Restless legs. Past Surgical History has a past surgical history that includes Breast surgery; Breast lumpectomy; Ovary surgery; Upper gastrointestinal endoscopy (N/A, 03/25/2025); Colonoscopy (N/A, 03/25/2025); Colonoscopy (03/25/2025); ERCP (03/26/2025); ERCP (N/A, 03/26/2025); Upper gastrointestinal endoscopy (N/A, 03/26/2025); Upper gastrointestinal endoscopy (03/26/2025); and ERCP (03/26/2025). Medications Prior to Admission medications Medication Sig Start Date End Date Taking? Authorizing Provider melatonin 10 MG CAPS capsule Take 1 capsule by mouth nightly as needed (sleep) 01/10/25 Yes Lesli Ness MD pantoprazole (PROTONIX) 40 MG tablet Take 1 tablet by mouth daily 01/16/25 Yes Lesli Ness MD rOPINIRole (REQUIP) 0.25 MG tablet Take 1 tablet by mouth nightly 01/10/25 Yes Lesli Ness MD Scheduled Meds: potassium chloride 10 mEq IntraVENous Once midodrine 10 mg Oral TID WC midodrine 10 mg Oral Once metroNIDAZOLE Topical BID potassium chloride 20 mEq Oral Daily sodium chloride flush 5-40 mL IntraVENous 2 times per day [Held by provider] enoxaparin 40 mg SubCUTAneous Daily piperacillin-tazobactam 3,375 mg IntraVENous Q8H pantoprazole (PROTONIX) 40 mg in sodium chloride (PF) 0.9 % 10 mL injection 40 mg IntraVENous Daily Continuous Infusions: sodium chloride PRN Meds:.bisacodyl, oxyCODONE-acetaminophen, magnesium sulfate, sodium chloride flush, calcium carbonate, aluminum & magnesium hydroxide-simethicone, sodium chloride flush, sodium chloride, potassium chloride OR potassium alternative oral replacement OR potassium chloride, ondansetron OR ondansetron, acetaminophen OR acetaminophen, polyethylene glycol, HYDROmorphone, melatonin, rOPINIRole Allergies has no known allergies. Family History family history is not on file. Social History reports that she has been smoking cigarettes. She started smoking about 29 years ago. She has a 29.4 pack-year smoking history. She does not have any smokeless tobacco history on file. reports current alcohol use of about 3.0 standard drinks of alcohol per week. reports that she does not currently use drugs. Review of Systems General Denies any fever or chills HEENT Denies any diplopia, tinnitus or vertigo Resp Denies any shortness of breath, cough or wheezing Cardiac Denies any chest pain, palpitations, claudication or edema GI Positive for abdominal pain, nausea, vomiting, and diarrhea Denies any frequency, urgency, hesitancy or incontinence Heme Denies bruising or bleeding easily Endocrine Denies any history of diabetes or thyroid disease Neuro Denies any focal motor or sensory deficits PHYSICAL: VITALS: height is 1.702 m (5' 7.01 ) and weight is 54.1 kg (119 lb 4.3 oz). Her oral temperature is98.8 ??F (37.1 ??C). Her blood pressure is 103/59 (abnormal) and her pulse is 73. Her respiration is 16 and oxygen saturation is 98%. GENERAL: Well-appearing. No acute distress. NEURO: Alert and oriented. HEENT: Trachea midline. Scleral icterus. LUNGS: Normal work of breathing. On room air. HEART: Regular rate and rhythm. ABDOMEN: Soft. Tenderness in the epigastric and lower abdominal regions. EXTREMITY: Moving all extremities. Ambulatory. SKIN: Well-perfused. Jaundiced. LABS: Recent Labs 03/26/25 0000 03/26/25 0646 03/27/25 1126 03/27/25 1455 03/28/25 0426 WBC -- 10.1 12.0* -- -- HGB -- 8.4* 9.7* -- -- HCT -- 26.4* 30.9* -- -- PLT -- 239 293 -- -- NA 127* 133* -- 132* -- K 3.5* 3.6* -- 4.1 -- CL 98 105 -- 105 -- CO2 23 21 -- 21 -- BUN <2* <2* -- 3* -- CREATININE 0.3* 0.3* -- 0.3* -- CALCIUM 7.0* 7.1* -- 7.6* -- AST 96* 82* -- 69* 66* ALT 52* 46* -- 35 35 BILITOT 5.8* 5.0* -- 4.2* 4.1* BILIDIR -- -- -- -- 3.3* Recent Labs 03/28/25 0426 ALKPHOS 192* ALT 35 AST 66* BILITOT 4.1* BILIDIR 3.3* RADIOLOGY: XR ABDOMEN (KUB) (SINGLE AP VIEW) Result Date: 03/27/2025 EXAMINATION: ONE SUPINE XRAY VIEW OF THE ABDOMEN 03/27/2025 3:54 pm COMPARISON: MRI abdomen 03/24/2025 HISTORY: Abdominal pain, distension FINDINGS: 2 images are presented. Unremarkable bowel gas pattern. No unusual abdominal or pelvic soft tissue density is seen. High density diffusely throughoutthe gallbladder with apparent filling defects, corresponding to description of gallbladder sludge/cholelithiasis on MRI. Presumed biliary stent demonstrated right upper quadrant. Visualized osseous structures appear unremarkable. 1. Presumed vicarious contrast excretion within the gallbladder, cholelithiasis. 2. Unremarkable bowel gas pattern. 3. No radiopaque urinary collecting system calculus evident. Echo (TTE) complete (PRN contrast/bubble/strain/3D) Result Date: 03/27/2025 Left Ventricle: Normal left ventricular systolic function with a visually estimated EF of 60 - 65%.Left ventricle size is normal. Normal wall thickness. Normal wall motion. Global longitudinal strain is -15.3%. Normal diastolic function. Right Ventricle: Right ventricle size is normal. Normal systolic function. TAPSE is normal. TAPSE is 2.0 cm. Aortic Valve: No regurgitation. No stenosis. Left Atrium: Left atrium is mildly dilated. Pericardium: No pericardial effusion. Image quality is adequate. MRI ABDOMEN W WO CONTRAST MRCP Result Date: 03/24/2025 EXAM: MRCP WITHOUT AND WITH IV CONTRAST 03/24/2025 09:32:00 AM TECHNIQUE: Multisequence, multiplanar magnetic resonance images of the abdomen without and with intravenous contrast. MRCP sequences were performed. COMPARISON: None available. CLINICAL HISTORY: Painful jaundice. Acute cholecystitis. FINDINGS: LIVER: Severe loss of signal intensity seen on [id number]-[id number] imaging consistent with severe hepatic steatosis. Mild hepatomegaly measuring 23 cm in craniocaudal dimension. GALLBLADDER AND BILIARY SYSTEM: Cholelithiasis and biliary sludge with nonspecific wall thickening. There is nonspecific edema seen at the vernon hepatis with inflammation seen near the expected location of the extrahepatic common bile duct, as well as fluid tracking into the falciform ligament and near the gallbladder and pancreatic body. There is some edema within the pancreatic body, raising the possibility of pancreatitis without ductal dilatation or a discrete lesion. No significant intrahepatic biliary dilatation. A portion of the extrahepatic bile duct near the vernon hepatis is not visualized, with the more distal aspect of the common bile duct at the level of the pancreatic head being normal. SPLEEN: Unremarkable. PANCREAS/PANCREATIC DUCT: There is some edema within the pancreatic body, raising the possibility of pancreatitis without ductal dilatation or a discrete lesion. No pancreatic ductal dilatation. ADRENAL GLANDS: Unremarkable. KIDNEYS: Unremarkable. LYMPH NODES: There are a few reactive, nonenlarged retroperitoneal lymph nodes. VASCULATURE: Unremarkable. PERITONEUM: Fluid tracking into thefalciform ligament and near the gallbladder and pancreatic body. No ascites. ABDOMINAL WALL: No hernia. No mass. BOWEL: Grossly unremarkable. No bowel obstruction. BONES: No acute abnormality or worrisome osseous lesion. SOFT TISSUES: Unremarkable. MISCELLANEOUS: Trace bilateral pleural effusions, right greater than left. 1. Nonspecific edema seen at the vernon hepatis/extrahepatic common bile duct and pancreatic body raised the possibility pancreatitis versus CBD stricture. No definite evidence of choledocholithiasis or intrahepatic bile dilatation. 2. Nonspecific gallbladder wall thickening with cholelithiasis, raising the possibility of cholecystitis. Mini Tracy DO 03/28/2025, 1:18 PM Cosigned by Manjula Sue MD at 03/29/2025 10:10 AM EDT Associated attestation - Manjula Sue MD - 03/29/2025 10:10 AM EDT I personally evaluated the patient and directed the medical decision making with Resident after thephysical/radiologic exam and laboratory values were reviewed and confirmed. Acute leni with choledocholithiasis. Plan for robo leni 03/29. Manjula Sue MD * Marvel Ng MD - 03/28/2025 10:52 AM EDT Images from the original note were not included. [facility] Office: [phone] Marquez Scott DO, Garth Casanova, DO, Kenny Vicente, DO, Edu Akers, DO, Ubaldo Nava MD, Yasmeen Day MD, Darian Covarrubias MD, Pauly Keane MD, Terence Marte MD, Cordelia Medina MD, Sana Guaman MD, Tania Forman, DO, Luigi Scott, DO, Kaylie Briones MD, Ariel Glez, DO, Emily Miller MD, Catina Melissa MD, Josias Corona MD, Jamil Louie MD, Carlyle Bledsoe MD,Estefany Badillo MD, Marvel Ng MD, Elvis Malave MD, Natalie Monroe MD, Jarred Dias, DO,Yahaira Ma MD, Connor Neal DO, Kingsley James MD, Francisco Licona MD, Tania Bustillos MD, Manuel Bustillos MD, Berry Holder MD, Ruth Causey, SVP, Za Del Valle, SVP, Jarred Sandoval, SVP, Declan, DNP, Gabby Epstein, SVP, Carmen Pack, SVP, Amber Del Toro, SVP, Lula Alvarado, SVP, Julia Ortiz, PA-C, Linda Guidry, SVP, Lillie Gipson, SVP, Magaly Lind, SVP, Ni Rodriguez, SVP, Shaun Cabrales, PA-C, Danica Hernandez, PA-C, Shivani Díaz, SVP, Lily Esteves, SVP, Tracy Richardson, SVP, Carmela Wills, SURGICAL CORSETIER, Sheila Smith, SVP, Kate Macias, SVP, Jeanie Fox, SVP [facility] IN-PATIENT SERVICE [facility] Progress Note 03/28/2025 10:52 AM Name: Eneida Mejia Acct: [id number] Room: [facility]050[facility] Day: 6 Admit Date: 03/22/2025 7:27 PM PCP: Sudhir Gonzalez MD Code Status: Full Code Subjective: C/C: N/V/Abd pain/diarrhea Interval History Status: Not changed Patient was seen and examined, she was seen eating her breakfast, continues to report abdominal pain however she reports her pain is better compared with yesterday 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 Reported nausea vomiting diarrhea, abd pain and unintentional weight loss since last [address] abdomen pelvis showed GB distention with CBD dilation. GI consulted. 03/25-S/p EGD-minimal esophagitis with patent schatzki. Mild PHG r/o cirrhosis. Colonoscopy-6 mm ascending polyp, 4 mm polyps in sigmoid, Mild sigmoid diverticulosis, Small internal and external hemorrhoids. No evidence of bleed. Review of Systems: Review of Systems Constitutional: Negative for chills, fatigue and fever. HENT: Negative for congestion, hearing loss and rhinorrhea. Respiratory: Negative for cough, shortness of breath and wheezing. Cardiovascular: Negative for chest pain, palpitations and leg swelling. Gastrointestinal: Positive for abdominal pain and nausea. Negative for abdominal distention and vomiting. Endocrine: Negative for polydipsia and polyphagia. Genitourinary: Negative for difficulty urinating and dysuria. Musculoskeletal: Negative for arthralgias and back pain. Skin: Negative for rash and wound. Neurological: Negative for dizziness, seizures, light-headedness and headaches. Psychiatric/Behavioral: Negative for agitation and behavioral problems. The patient is nervous/anxious. Medications: Allergies: No Known Allergies Current Meds: Scheduled Meds: potassium chloride 10 mEq IntraVENous Once midodrine 10 mg Oral TID WC midodrine 10 mg Oral Once metroNIDAZOLE Topical BID potassium chloride 20 mEq Oral Daily sodium chloride flush 5-40 mL IntraVENous 2 times per day [Held by provider] enoxaparin 40 mg SubCUTAneous Daily piperacillin-tazobactam 3,375 mg IntraVENous Q8H pantoprazole (PROTONIX) 40 mg in sodium chloride (PF) 0.9 % 10 mL injection 40 mg IntraVENous Daily Continuous Infusions: 0.9% NaCl with KCl 20 mEq 100 mL/hr at 03/28/25 0224 sodium chloride PRN Meds: bisacodyl, oxyCODONE-acetaminophen, magnesium sulfate, sodium chloride flush, calcium carbonate, aluminum & magnesium hydroxide-simethicone, sodium chloride flush, sodium chloride, potassium chloride OR potassium alternative oral replacement OR potassium chloride, ondansetron OR ondansetron, acetaminophen OR acetaminophen, polyethylene glycol, HYDROmorphone, melatonin, rOPINIRole Data: Past Medical History: has a past medical history of Cancer (HCC), History of breast cancer, and Restless legs. Social History: reports that she has been smoking cigarettes. She started smoking about 29 years ago. She has a 29.4 pack-year smoking history. She does not have any smokeless tobacco history on file. She reports current alcohol use of about 3.0 standard drinks of alcohol per week. She reports thatshe does not currently use drugs. Family History: History reviewed. No pertinent family history. Vitals: BP 103/60 Pulse 73 Temp 99.4 ??F (37.4 ??C) (Oral) Resp 17 Ht 1.702 m (5' 7.01 ) Wt 54.1 kg (119 lb 4.3 oz) SpO2 97% BMI 18.68 kg/m?? Temp (24hrs), Av.4 ??F (36.9 ??C), Min:97.9 ??F (36.6 ??C), Max:99.4 ??F (37.4 ??C) No results for input(s): POCGLU in the last 72 hours. I/O (24Hr): Intake/Output Summary (Last 24 hours) at 03/28/2025 1052 Last data filed at 03/28/2025 0000 Gross per 24 hour Intake 371.23 ml Output -- Net 371.23 ml Labs: Hematology: Recent Labs 03/26/25 0646 03/27/25 1126 WBC 10.1 12.0* RBC 2.20* 2.54* HGB 8.4* 9.7* HCT 26.4* 30.9* MCV 120.0* 121.7* MCH 38.2* 38.2* MCHC 31.8 31.4 RDW 14.0 13.7 PLT 239 293 MPV 10.8 11.1 Chemistry: Recent Labs 03/26/25 0000 03/26/25 0646 03/27/25 1455 NA 127* 133* 132* K 3.5* 3.6* 4.1 CL 98 105 105 CO2 23 21 21 GLUCOSE 113* 94 120* BUN <2* <2* 3* CREATININE 0.3* 0.3* 0.3* ANIONGAP 6* 7* 6* LABGLOM >90 >90 >90 CALCIUM 7.0* 7.1* 7.6* Recent Labs 03/26/25 0646 03/27/25 1455 03/28/25 0426 AST 82* 69* 66* ALT 46* 35 35 ALKPHOS 206* 178* 192* BILITOT 5.0* 4.2* 4.1* BILIDIR -- -- 3.3* ABG:No results found for: POCPH , PHART , PH , POCPCO2 , PEN1HTS , PCO2 , POCPO2 , PO2ART , PO2 , POCHCO3 , QYX0LOM , HCO3 , NBEA , PBEA , BEART , BE , THGBART , THB , ZHC6LMK , XKED9ZQE , I5KXWLXS , O2SAT , FIO2 No results found for: SPECIAL No results found for: CULTURE Radiology: No results found. Physical Examination: Physical Exam Constitutional: Appearance: She is well-developed. HENT: Head: Normocephalic and atraumatic. Eyes: General: Scleral icterus present. Left eye: No discharge. Pupils: Pupils are equal, round, and reactive to light. Neck: Thyroid: No thyromegaly. Vascular: No JVD. Cardiovascular: Rate and Rhythm: Normal rate and regular rhythm. Heart sounds: Normal heart sounds. No murmur heard. Pulmonary: Effort: Pulmonary effort is normal. Breath sounds: Normal breath sounds. No wheezing. Abdominal: General: Bowel sounds are normal. There is no distension. Palpations: Abdomen is soft. Tenderness: There is abdominal tenderness. There is no rebound. Musculoskeletal: General: No tenderness. Normal range of motion. Cervical back: Normal range of motion and neck supple. Neurological: Mental Status: She is alert and oriented to person, place, and time. Cranial Nerves: No cranial nerve deficit. Psychiatric: Behavior: Behavior normal. Assessment: Hospital Problems Last Modified POA * (Principal) Acute cholecystitis 03/22/2025 Yes History of breast cancer 03/22/2025 Yes Restless legs 03/22/2025 Yes Tobacco user 03/22/2025 Yes Jaundice 03/22/2025 Yes Hepatic steatosis 03/22/2025 Yes Common bile duct dilatation 03/22/2025 Yes Unintended weight loss 03/22/2025 Yes Daily consumption of alcohol 03/22/2025 Yes Generalized abdominal pain 03/22/2025 Yes Gastritis without bleeding 03/25/2025 Yes Adenomatous polyp of ascending colon 03/25/2025 Yes Hypotension 03/26/2025 Yes Plan: Transaminitis secondary to acute cholecystitis with concern for choledocholithiasis-evaluated by GIeval. S/p MRCP concerning for pancreatitis versus CBD stricture with no evidence of choledocholithiasis or intrahepatic bile duct dilatation. Also concerning for cholecystitis. S/p EGD-minimal esophagitis with patent schatzki. Mild PHG r/o cirrhosis. Colonoscopy-6 mm ascending polyp, 4 mm polyps in sigmoid,Mild sigmoid diverticulosis, Small internal and external hemorrhoids. No evidence of bleed. S/p ENDOSCOPIC RETROGRADE CHOLANGIOPANCREATOGRAPHY STENT INSERTION on 03/26 Final GI recommendation to watch for post ERCP complication, follow LFT and repeat x-ray of the abdomen in 48 hours to document passage of the PD stent Esophagitis with patent Schatzki : Continue PPI, GI is following Concern for cirrhosis- US organ elastography.GI following Nausea vomiting diarrhea and unintentional weight loss multifactorial secondary to cholecystitis, colitis and alcohol use. Supportive care. Electrolyte replacements as needed. Hypotension- fluid bolus. Midodrine 10 TID. Correct electrolyte abnormality Alcohol use disorder-thiamine folate multivitamin. CIWA if needed. Monitor for withdrawals. Leukocytosis-resolving, secondary to above. Continue Zosyn. History of breast cancer approximately 6 years prior status post lumpectomy and 5 years of tamoxifen Disposition awaiting Final GI recommendation , watch for post ERCP complication, follow LFT and repeat x-ray of the abdomen in 48 hours to document passage of the PD stent Marvel Ng MD 03/28/2025 10:52 AM * Dimas Andujar MD - 03/27/2025 1:[address] [facility] Gastroenterology Progress Note Eneida Mejia is a 49 y.o. female patient. Hospitalization Day:5 Chief consult reason: Abdominal pain, diarrhea, elevated LFTs Subjective: She is having upper abdominal pain with occasional lowe abdominal pain. She reports nausea but tolerated some food. VITALS: BP (!) 98/56 Pulse 85 Temp 97.9 ??F (36.6 ??C) (Oral) Resp 16 Ht 1.702 m (5' 7.01 ) Wt 54.1 kg (119 lb 4.3 oz) SpO2 100% BMI 18.68 kg/m?? TEMPERATURE: Current - Temp: 97.9 ??F (36.6 ??C); Max - Temp Av ??F (36.7 ??C) Min: 97.4 ??F (36.3 ??C) Max: 98.4 ??F (36.9 ??C) Physical Assessment: General appearance: alert, cooperative and no distress Mental Status: oriented to person, place and time and normal affect Lungs: normal effort Heart: regular rate Abdomen: soft, mild epigastric tenderness, mildly distended Extremities: no edema, redness, tenderness in the calves Skin: no gross lesions, rashes, induration Data Review: Labs and Imaging: MRCP FINDINGS: LIVER: Severe loss of signal intensity seen on [id number] imaging consistent with severe hepatic steatosis. Mild hepatomegaly measuring 23 cm in craniocaudal dimension. GALLBLADDER AND BILIARY SYSTEM: Cholelithiasis and biliary sludge with nonspecific wall thickening. There is nonspecific edema seenat the vernon hepatis with inflammation seen near the expected location of the extrahepatic common bile duct, as well as fluid tracking into the falciform ligament and near the gallbladder and pancreatic body. There is some edema within the pancreatic body, raising the possibility of pancreatitis without ductal dilatation or a discrete lesion. No significant intrahepatic biliary dilatation. A portion of the extrahepatic bile duct near the vernon hepatis is not visualized, with the more distal aspect ofthe common bile duct at the level of the pancreatic head being normal. SPLEEN: Unremarkable. PANCREAS/PANCREATIC DUCT: There is some edema within the pancreatic body, raising the possibility of pancreatitis without ductal dilatation or a discrete lesion. No pancreatic ductal dilatation. ADRENAL GLANDS: Unremarkable. KIDNEYS: Unremarkable. LYMPH NODES: There are a few reactive, nonenlarged retroperitoneal lymph nodes. VASCULATURE: Unremarkable. PERITONEUM: Fluid tracking into the falciform ligament and near the gallbladder and pancreatic body. No ascites. ABDOMINAL WALL: No hernia. No mass. BOWEL: Grossly unremarkable. No bowel obstruction. BONES: No acute abnormality or worrisome osseous lesion. SOFT TISSUES: Unremarkable. MISCELLANEOUS: Trace bilateral pleural effusions, right greater than left. IMPRESSION: 1. Nonspecific edema seen at the vernon hepatis/extrahepatic common bile duct and pancreatic body raised the possibility pancreatitis versus CBD stricture. No definite evidence of choledocholithiasis or intrahepatic bile dilatation. 2. Nonspecific gallbladder wall thickening with cholelithiasis, raising the possibility of cholecystitis. CBC: Recent Labs 03/25/2565003/26/25 0646 03/27/25 1126 WBC 11.8* 10.1 12.0* HGB 8.1* 8.4* 9.7* MCV 119.2* 120.0* 121.7* RDW 14.2 14.0 13.7 PLT 234 239 293 ANEMIA STUDIES: Recent Labs 03/25/25 0651 03/25/25 1559 TIBC 105* -- FERRITIN 328* -- NUTYVEAU85 -- >2000* FOLATE -- 25.5* BMP: Recent Labs 03/25/2551 03/25/25 2016 03/26/25 0000 03/26/25 0646 NA 135* 129* 127* 133* K 2.9* 3.6* 3.5* 3.6* CL 103 99 98 105 CO2 21 19* 23 21 BUN <2* <2* <2* <2* CREATININE 0.3* 0.3* 0.3* 0.3* GLUCOSE 71* 110* 113* 94 CALCIUM 6.7* 6.9* 7.0* 7.1* MG 1.5* -- -- -- LFTS: Recent Labs 03/25/2565003/26/25 0000 03/26/25645 ALKPHOS 194* 219* 206* ALT 48* 52* 46* AST 95* 96* 82* BILITOT 5.3* 5.8* 5.0* Other pertinent labs: MELD 3.0: 19 at 03/26/2025 6:46 AM MELD-Na: 17 at 03/26/2025 6:46 AM Calculated from: Serum Creatinine: 0.3 mg/dL (Using min of 1 mg/dL) at 03/26/2025 6:46 AM Serum Sodium: 133 mmol/L at 03/26/2025 6:46 AM Total Bilirubin: 5 mg/dL at 03/26/2025 6:46 AM Serum Albumin: 2.5 g/dL at 03/26/2025 6:46 AM INR(ratio): 1.1 at 03/24/2025 6:30 AM Age at listing (hypothetical): 49 years Sex: Female at 03/26/2025 6:46 AM Gastroenterology impression and plan: Abdominal pain, weight loss, nausea, vomiting, change in bowel habits, jaundice in the setting of daily / heavy etoh intake. Concern for acute cholecystitis on imaging with GB wall thickening, normal CBD, no evidence of ductdilation or CBD stone, fatty liver Chronic inflammatory changes of chronic colitis most prominent ascending colon. EGD Minimal esophagitis with patent Schatzki Mild PHG-biopsied Colonosopy polypectomy x 2, Mild sigmoid diverticulosis, Small internal and external hemorrhoids, No evidence of bleed EUS/ERCP: sphincterotomy was performed, sludge removed, no obvious distal CBD stricture seen on cholangiogram there was paucity of contrast flow across the ampulla. Therefore a 10 Afghan by 7 cm plastic biliary stent was placed across the ampulla with good flow of bile and contrast seen post deployment. Hx breast cancer post left lumpectomy approximately 6 years ago followed by 5 years of tamoxifen Labs suggest Etoh hepatitis, but would not tx with prednisolone until we can rule out bleeding, infection She has a degree of chronic liver disease from etoh. RECOMMENDATIONS: Watch for post ERCP complications Continue to trend LFTs, If LFTs continues to be elevated post stent placement then most likely we are dealing with parenchymal liver disease ?Alcoholic hepatitis Repeat x-ray of the abdomen in 48 hours to document passage of the PD stent. Repeat ERCP in 4 weeks for biliary stent removal. Monitor hemoglobin and stool for blood F/U Biopsies PPI Complete alcohol cessation Stool studies negative for infection Etoh cessation Will continue to follow This plan was formulated in collaboration with Dr. Pratima MD Thank you for allowing me to participate in the care of your patient. Please feel free to contact me with any questions or concerns. [facility] Gastroenterology Reba Gonzalez PA-C [phone] 03/27/2025 1:39 PM Attending Physician Attestation: I have discussed the care of Eneida Mejia and I have examined the patient myselft and taken ros and hpi , including pertinent history and exam findings, with the author of this note . I have reviewed the lei elements of all parts of the encounter with the nurse practitioner/resident. I agree with the assessment, plan and orders as documented by the above health care provider with the following addendum. More than 50% of the time was spent taking care of this patient in addition to the nurse practitioner time. That also included history taking follow-up physical examination and review of system. * Marvel Ng MD - 03/27/2025 1:18 PM EDT Physician Progress Note PATIENT: ENEIDA MEJIA [facility] #: [id number] : 1975 ADMIT DATE: 03/22/2025 7:27 PM DISCH DATE: RESPONDING PROVIDER #: Marvel Ng MD QUERY TEXT: Anemia is documented in the medical record 03/25 Op Note PREOPERATIVE DIAGNOSIS: Severe anemia . Please specify the type: The clinical indicators include: Per 03/25 Op Note: PREOPERATIVE DIAGNOSIS: Severe anemia Recommendations/Plan: Anemia workup rule out micronutrient deficiency. If deemed to be iron deficient and fail to improve might require outpatient video capsule endoscopy. Monitor hemoglobin and stool for blood Per 03/26 IM PN: 49-year-old female with history of breast cancer status post left lumpectomy status post tamoxifen treatment, nicotine dependence and alcohol abuse presented as a transfer from [facility] for management of acute cholecystitis and concern for choledocholithiasis. Reported nausea vomiting diarrhea, abd pain and unintentional weight loss since last 2 weeks. -S/p EGD-minimal esophagitis with patent schatzki. Mild PHG r/o cirrhosis. Colonoscopy-6 mm ascending polyp, 4 mm polyps in sigmoid, Mild sigmoid diverticulosis, Small internal and external hemorrhoids. No evidence of bleed. Hgb (03/23) 7.8>(03/25) 8.1, Hct (03/23) 24.1>(03/25)25.5, RBC (03/23) 2.07>(03/25) 2.14, (03/25)Ferritin 328, % Fe Saturation 42, Iron 44, Total Fe Binding Cap 105, Unbound Fe Bind Cap 61, GI consult, Monitor hemoglobin and stool for blood Options provided: -- Related to acute blood loss -- Related to acute on chronic blood loss -- Related to iron deficiency -- Other - I will add my own diagnosis -- Disagree - Not applicable / Not valid -- Refer to Clinical Documentation Reviewer PROVIDER RESPONSE TEXT: The patients anemia is related to acute on chronic blood loss. Query created by: Sujata Duvall on 03/27/2025 11:38 AM Electronically signed by: Marvel Ng MD 03/27/2025 1:16 PM * Marvel Ng MD - 03/27/2025 11:16 AM EDT Images from the original note were not included. [facility] Office: [phone] Marquez Scott DO, Garth Casanova DO, Kenny Vicente DO, Edu Akers DO, Ubaldo Nava MD, Yasmeen Day MD, Darian Covarrubias MD, Pauly Keane MD, Terence Marte MD, Cordelia Medina MD, Sana Guaamn MD, Tania Forman DO, Luigi Scott DO, Kaylie Briones MD, Ariel Glez DO, Emily Miller MD, Catina Melissa MD, Josias Corona MD, Jamil Louie MD, Carlyle Bledsoe MD,Estefany Badillo MD, Marvel Ng MD, Elvis Malave MD, Natalie Monroe MD, Jarred Dias DO,Yahaira Ma MD, Connor Neal DO, Kingsley James MD, Francisco Licona MD, Tania Bustillos MD, Manuel Bustillos MD, Berry Holder MD, Ruth Causey, SVP, Za Del Valle, SVP, Jarred Sandoval, [facility], Declan, [facility], Gabby Epstein, SVP, Carmen Pack, SVP, Amber Del Toro, SVP, Lula Alvarado, SVP, Julia Ortiz, PA-C, Linda Guidry, SVP, Lillie Gipson, SVP, Magaly Lind, SVP, Ni Rodriguez, SVP, Shaun Cabrales, PA-C, Danica Hernandez, PA-C, Shivani Díaz, SVP, Lily Esteves, [facility], Tracy Richardson, [facility], Carmela Wills, [facility], Sheila Smith, [facility], Kate Macias, [facility], Jeanie Fox, [facility] IN-PATIENT SERVICE [facility] Progress Note 03/27/2025 11:16 AM Name: Eneida Mejia Acct: [id number] Room: [address] [place] [address] Day: 5 Admit Date: 03/22/2025 7:27 PM PCP: Sudhir Gonzalez MD Code Status: Full Code Subjective: C/C: N/V/Abd pain/diarrhea Interval History Status: Not changed Patient was seen and examined, she was seen eating her breakfast however she continued to report abdominal pain Status post ERCP done yesterday 03-26 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 Reported nausea vomiting diarrhea, abd pain and unintentional weight loss since last [address] abdomen pelvis showed GB distention with CBD dilation. GI consulted. 03/25-S/p EGD-minimal esophagitis with patent schatzki. Mild PHG r/o cirrhosis. Colonoscopy-6 mm ascending polyp, 4 mm polyps in sigmoid, Mild sigmoid diverticulosis, Small internal and external hemorrhoids. No evidence of bleed. Review of Systems: Review of Systems Constitutional: Negative for chills, fatigue and fever. HENT: Negative for congestion, hearing loss and rhinorrhea. Respiratory: Negative for cough, shortness of breath and wheezing. Cardiovascular: Negative for chest pain, palpitations and leg swelling. Gastrointestinal: Positive for abdominal pain and nausea. Negative for abdominal distention and vomiting. Endocrine: Negative for polydipsia and polyphagia. Genitourinary: Negative for difficulty urinating and dysuria. Musculoskeletal: Negative for arthralgias and back pain. Skin: Negative for rash and wound. Neurological: Negative for dizziness, seizures, light-headedness and headaches. Psychiatric/Behavioral: Negative for agitation and behavioral problems. The patient is nervous/anxious. Medications: Allergies: No Known Allergies Current Meds: Scheduled Meds: potassium chloride 10 mEq IntraVENous Once midodrine 10 mg Oral TID WC midodrine 10 mg Oral Once metroNIDAZOLE Topical BID potassium chloride 20 mEq Oral Daily sodium chloride flush 5-40 mL IntraVENous 2 times per day [Held by provider] enoxaparin 40 mg SubCUTAneous Daily piperacillin-tazobactam 3,375 mg IntraVENous Q8H pantoprazole (PROTONIX) 40 mg in sodium chloride (PF) 0.9 % 10 mL injection 40 mg IntraVENous Daily Continuous Infusions: 0.9% NaCl with KCl 20 mEq Stopped (03/27/25 1021) sodium chloride PRN Meds: oxyCODONE-acetaminophen, magnesium sulfate, sodium chloride flush, calcium carbonate, aluminum & magnesium hydroxide-simethicone, sodium chloride flush, sodium chloride, potassium chloride OR potassium alternative oral replacement OR potassium chloride, ondansetron OR ondansetron, acetaminophen OR acetaminophen, polyethylene glycol, HYDROmorphone, melatonin, rOPINIRole Data: Past Medical History: has a past medical history of Cancer (HCC), History of breast cancer, and Restless legs. Social History: reports that she has been smoking cigarettes. She started smoking about 29 years ago. She has a 29.4 pack-year smoking history. She does not have any smokeless tobacco history on file. She reports current alcohol use of about 3.0 standard drinks of alcohol per week. She reports thatshe does not currently use drugs. Family History: History reviewed. No pertinent family history. Vitals: BP 101/65 Pulse 86 Temp 98.2 ??F (36.8 ??C) (Oral) Resp 18 Ht 1.702 m (5' 7.01 ) Wt 54.1 kg (119 lb 4.3 oz) SpO2 98% BMI 18.68 kg/m?? Temp (24hrs), Av.1 ??F (36.7 ??C), Min:97.4 ??F (36.3 ??C), Max:99 ??F (37.2 ??C) No results for input(s): POCGLU in the last 72 hours. I/O (24Hr): Intake/Output Summary (Last 24 hours) at 03/27/2025 1116 Last data filed at 03/27/2025 1049 Gross per 24 hour Intake 5256.24 ml Output -- Net 5256.24 ml Labs: Hematology: Recent Labs 03/25/2565003/26/25 0646 WBC 11.8* 10.1 RBC 2.14* 2.20* HGB 8.1* 8.4* HCT 25.5* 26.4* MCV 119.2* 120.0* MCH 37.9* 38.2* MCHC 31.8 31.8 RDW 14.2 14.0 PLT 234 239 MPV 11.3 10.8 Chemistry: Recent Labs 03/25/2565003/25/25 2016 03/26/25 0000 03/26/25 0646 NA 135* 129* 127* 133* K 2.9* 3.6* 3.5* 3.6* CL 103 99 98 105 CO2 21 19* 23 21 GLUCOSE 71* 110* 113* 94 BUN <2* <2* <2* <2* CREATININE 0.3* 0.3* 0.3* 0.3* MG 1.5* -- -- -- ANIONGAP 11 11 6* 7* LABGLOM >90 >90 >90 >90 CALCIUM 6.7* 6.9* 7.0* 7.1* Recent Labs 03/25/2565003/26/25 0000 03/26/25 0646 AST 95* 96* 82* ALT 48* 52* 46* ALKPHOS 194* 219* 206* BILITOT 5.3* 5.8* 5.0* ABG:No results found for: POCPH , PHART , PH , POCPCO2 , TZO8CRH , PCO2 , POCPO2 , PO2ART , PO2 , POCHCO3 , LSI2BCI , HCO3 , NBEA , PBEA , BEART , BE , THGBART , THB , TWV8HSH , DIER8BPK , J2VTYEOB , O2SAT , FIO2 No results found for: SPECIAL No results found for: CULTURE Radiology: No results found. Physical Examination: Physical Exam Constitutional: Appearance: She is well-developed. HENT: Head: Normocephalic and atraumatic. Eyes: General: Scleral icterus present. Left eye: No discharge. Pupils: Pupils are equal, round, and reactive to light. Neck: Thyroid: No thyromegaly. Vascular: No JVD. Cardiovascular: Rate and Rhythm: Normal rate and regular rhythm. Heart sounds: Normal heart sounds. No murmur heard. Pulmonary: Effort: Pulmonary effort is normal. Breath sounds: Normal breath sounds. No wheezing. Abdominal: General: Bowel sounds are normal. There is no distension. Palpations: Abdomen is soft. Tenderness: There is abdominal tenderness. There is no rebound. Musculoskeletal: General: No tenderness. Normal range of motion. Cervical back: Normal range of motion and neck supple. Neurological: Mental Status: She is alert and oriented to person, place, and time. Cranial Nerves: No cranial nerve deficit. Psychiatric: Behavior: Behavior normal. Assessment: Hospital Problems Last Modified POA * (Principal) Acute cholecystitis 03/22/2025 Yes History of breast cancer 03/22/2025 Yes Restless legs 03/22/2025 Yes Tobacco user 03/22/2025 Yes Jaundice 03/22/2025 Yes Hepatic steatosis 03/22/2025 Yes Common bile duct dilatation 03/22/2025 Yes Unintended weight loss 03/22/2025 Yes Daily consumption of alcohol 03/22/2025 Yes Generalized abdominal pain 03/22/2025 Yes Gastritis without bleeding 03/25/2025 Yes Adenomatous polyp of ascending colon 03/25/2025 Yes Hypotension 03/26/2025 Yes Plan: Transaminitis secondary to acute cholecystitis with concern for choledocholithiasis-evaluated by GIeval. S/p MRCP concerning for pancreatitis versus CBD stricture with no evidence of choledocholithiasis or intrahepatic bile duct dilatation. Also concerning for cholecystitis. S/p EGD-minimal esophagitis with patent schatzki. Mild PHG r/o cirrhosis. Colonoscopy-6 mm ascending polyp, 4 mm polyps in sigmoid,Mild sigmoid diverticulosis, Small internal and external hemorrhoids. No evidence of bleed. S/p ENDOSCOPIC RETROGRADE CHOLANGIOPANCREATOGRAPHY STENT INSERTION on 03/26 Final GI recommendation to watch for post ERCP complication, follow LFT and repeat x-ray of the abdomen in 48 hours to document passage of the PD stent Esophagitis with patent Schatzki : Continue PPI, GI is following Concern for cirrhosis- US organ elastography.GI following Nausea vomiting diarrhea and unintentional weight loss multifactorial secondary to cholecystitis, colitis and alcohol use. Supportive care. Electrolyte replacements as needed. Hypotension- fluid bolus. Midodrine 10 TID. Correct electrolyte abnormality Alcohol use disorder-thiamine folate multivitamin. CIWA if needed. Monitor for withdrawals. Leukocytosis-resolving, secondary to above. Continue Zosyn. History of breast cancer approximately 6 years prior status post lumpectomy and 5 years of tamoxifen Disposition awaiting final GI and reports, Final GI recommendation to watch for post ERCP complication, follow LFT and repeat x-ray of the abdomen in 48 hours to document passage of the PD stent Marvel Ng MD 03/27/2025 11:16 AM * Kary Sanchez RN - 03/26/2025 4:00 PM EDT In Home Caregiver unable to complete 4pm assessment and vitals due to patient being off unit for ERCP. * Marvel Ng MD - 03/26/2025 12:05 PM EDT Images from the original note were not included. [facility] Office: [phone] Marquez Scott DO, Garth Casanova DO, Kenny Vicente, DO, Edu Akers, DO, Ubaldo Nava MD, Yasmeen Day MD, Darian Covarrubias MD, Pauly Keane MD, Terence Marte MD, Cordelia Medina MD, Sana Guaman MD, Tania Forman, DO, Luigi Scott, DO, Kaylie Briones MD, Ariel Glez, DO, Emily Miller MD, Catina Melissa MD, Josias Corona MD, Jamil Louie MD, Carlyle Bledsoe MD, Estefany Badillo MD, Marvel Ng MD, Elvis Malave MD, Natalie Monroe MD, Jarred Dias, DO, Yahaira Ma MD, Connor Neal DO, Kingsley James MD, Francisco Licona MD, Tania Bustillos MD, Manuel Bustillos MD, Berry Holder MD, Ruth Causey, SVP, Za Del Valle, SVP, Jarred Sandoval, SVP, Quita Lara, DNP, Gabby Epstein, SVP, Carmen Pack, SVP, Amber Del Toro, SVP, Lula Alvarado, SVP, Julia Ortiz, PA-C, Linda Guidry, SVP, Lillie Gipson, SVP, Magaly Lind, SVP, Ni Rodriguez, SVP, Shaun Cabrales, PA-C, Danica Hernandez, PA-C, Shivani Díaz, SVP, Lily Esteves, SVP, Tracy Richardson, SVP, Carmela Wills, SURGICAL CORSETIER, Sheila Smith, SVP, Kate Macias, SVP, Jeanie Fox, SVP [facility] IN-PATIENT SERVICE [facility] Progress Note 03/26/2025 12:06 PM Name: Eneida Mejia Acct: [id number] Room: 0503/0503-01 Day: 4 Admit Date: 03/22/2025 7:27 PM PCP: Sudhir Gonzalez MD Code Status: Full Code Subjective: C/C: N/V/Abd pain/diarrhea Interval History Status: Not changed Patient was seen and examined, at time of my evaluation patient continues to report nausea, abdominal pain mainly in epigastric area Awaiting final GI input 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 Reported nausea vomiting diarrhea, abd pain and unintentional weight loss since last [address] abdomen pelvis showed GB distention with CBD dilation. GI consulted. 03/25-S/p EGD-minimal esophagitis with patent schatzki. Mild PHG r/o cirrhosis. Colonoscopy-6 mm ascending polyp, 4 mm polyps in sigmoid, Mild sigmoid diverticulosis, Small internal and external hemorrhoids. No evidence of bleed. Review of Systems: Review of Systems Constitutional: Negative for chills, fatigue and fever. HENT: Negative for congestion, hearing loss and rhinorrhea. Respiratory: Negative for cough, shortness of breath and wheezing. Cardiovascular: Negative for chest pain, palpitations and leg swelling. Gastrointestinal: Positive for abdominal pain and nausea. Negative for abdominal distention and vomiting. Endocrine: Negative for polydipsia and polyphagia. Genitourinary: Negative for difficulty urinating and dysuria. Musculoskeletal: Negative for arthralgias and back pain. Skin: Negative for rash and wound. Neurological: Negative for dizziness, seizures, light-headedness and headaches. Psychiatric/Behavioral: Negative for agitation and behavioral problems. The patient is nervous/anxious. Medications: Allergies: No Known Allergies Current Meds: Scheduled Meds: calcium gluconate 2,000 mg IntraVENous Once potassium chloride 10 mEq IntraVENous Once midodrine 10 mg Oral TID WC midodrine 10 mg Oral Once metroNIDAZOLE Topical BID potassium chloride 20 mEq Oral Daily sodium chloride flush 5-40 mL IntraVENous 2 times per day [Held by provider] enoxaparin 40 mg SubCUTAneous Daily piperacillin-tazobactam 3,375 mg IntraVENous Q8H pantoprazole (PROTONIX) 40 mg in sodium chloride (PF) 0.9 % 10 mL injection 40 mg IntraVENous Daily Continuous Infusions: 0.9% NaCl with KCl 20 mEq 100 mL/hr at 03/26/25 0812 sodium chloride PRN Meds: oxyCODONE-acetaminophen, magnesium sulfate, sodium chloride flush, calcium carbonate, aluminum & magnesium hydroxide-simethicone, sodium chloride flush, sodium chloride, potassium chloride OR potassium alternative oral replacement OR potassium chloride, ondansetron OR ondansetron, acetaminophen OR acetaminophen, polyethylene glycol, HYDROmorphone, melatonin, rOPINIRole Data: Past Medical History: has a past medical history of Cancer (HCC), History of breast cancer, and Restless legs. Social History: reports that she has been smoking cigarettes. She started smoking about 29 years ago. She has a 29.4 pack-year smoking history. She does not have any smokeless tobacco history on file. She reports current alcohol use of about 3.0 standard drinks of alcohol per week. She reports thatshe does not currently use drugs. Family History: History reviewed. No pertinent family history. Vitals: BP 112/62 Pulse 81 Temp 99 ??F (37.2 ??C) (Oral) Resp 24 Ht 1.702 m (5' 7.01 ) Wt 54.1 kg(119 lb 4.3 oz) SpO2 (!) 80% BMI 18.68 kg/m?? Temp (24hrs), Av.5 ??F (36.9 ??C), Min:98.1 ??F (36.7 ??C), Max:99 ??F (37.2 ??C) No results for input(s): POCGLU in the last 72 hours. I/O (24Hr): Intake/Output Summary (Last 24 hours) at 03/26/2025 1206 Last data filed at 03/25/2025 1830 Gross per 24 hour Intake 5130.93 ml Output -- Net 5130.93 ml Labs: Hematology: Recent Labs 03/24/25 0630 03/25/25 0651 03/26/25 0646 WBC 13.5* 11.8* 10.1 RBC 2.35* 2.14* 2.20* HGB 8.9* 8.1* 8.4* HCT 28.1* 25.5* 26.4* MCV 119.6* 119.2* 120.0* MCH 37.9* 37.9* 38.2* MCHC 31.7 31.8 31.8 RDW 14.6* 14.2 14.0 PLT 293 234 239 MPV 10.8 11.3 10.8 INR 1.1 -- -- Chemistry: Recent Labs 03/23/25 1424 03/24/25 0048 03/25/25 0651 03/25/25 2016 03/26/25 0000 03/26/25 0646 NA 131* < > 135* 129* 127* 133* K 3.5* < > 2.9* 3.6* 3.5* 3.6* CL 95* < > 103 99 98 105 CO2 25 < > 21 19* 23 21 GLUCOSE 77 < > 71* 110* 113* 94 BUN 5* < > <2* <2* <2* <2* CREATININE 0.3* < > 0.3* 0.3* 0.3* 0.3* MG 1.4* -- 1.5* -- -- -- ANIONGAP 11 < > 11 11 6* 7* LABGLOM >90 < > >90 >90 >90 >90 CALCIUM 7.6* < > 6.7* 6.9* 7.0* 7.1* < > = values in this interval not displayed. Recent Labs 03/25/25 0651 03/26/25 0000 03/26/25 0646 AST 95* 96* 82* ALT 48* 52* 46* ALKPHOS 194* 219* 206* BILITOT 5.3* 5.8* 5.0* ABG:No results found for: POCPH , PHART , PH , POCPCO2 , TRV3SDP , PCO2 , POCPO2 , PO2ART , PO2 , POCHCO3 , JCO7ROA , HCO3 , NBEA , PBEA , BEART , BE , THGBART , THB , XMX4JRL , MRLF6PFB , L4AOSXRK , O2SAT , FIO2 No results found for: SPECIAL No results found for: CULTURE Radiology: No results found. Physical Examination: Physical Exam Constitutional: Appearance: She is well-developed. HENT: Head: Normocephalic and atraumatic. Eyes: General: Scleral icterus present. Left eye: No discharge. Pupils: Pupils are equal, round, and reactive to light. Neck: Thyroid: No thyromegaly. Vascular: No JVD. Cardiovascular: Rate and Rhythm: Normal rate and regular rhythm. Heart sounds: Normal heart sounds. No murmur heard. Pulmonary: Effort: Pulmonary effort is normal. Breath sounds: Normal breath sounds. No wheezing. Abdominal: General: Bowel sounds are normal. There is no distension. Palpations: Abdomen is soft. Tenderness: There is abdominal tenderness. There is no rebound. Musculoskeletal: General: No tenderness. Normal range of motion. Cervical back: Normal range of motion and neck supple. Neurological: Mental Status: She is alert and oriented to person, place, and time. Cranial Nerves: No cranial nerve deficit. Psychiatric: Behavior: Behavior normal. Assessment: Hospital Problems Last Modified POA * (Principal) Acute cholecystitis 03/22/2025 Yes History of breast cancer 03/22/2025 Yes Restless legs 03/22/2025 Yes Tobacco user 03/22/2025 Yes Jaundice 03/22/2025 Yes Hepatic steatosis 03/22/2025 Yes Common bile duct dilatation 03/22/2025 Yes Unintended weight loss 03/22/2025 Yes Daily consumption of alcohol 03/22/2025 Yes Generalized abdominal pain 03/22/2025 Yes Gastritis without bleeding 03/25/2025 Yes Adenomatous polyp of ascending colon 03/25/2025 Yes Plan: Transaminitis secondary to acute cholecystitis with concern for choledocholithiasis-evaluated by GIeval. S/p MRCP concerning for pancreatitis versus CBD stricture with no evidence of choledocholithiasis or intrahepatic bile duct dilatation. Also concerning for cholecystitis. S/p EGD-minimal esophagitis with patent schatzki. Mild PHG r/o cirrhosis. Colonoscopy-6 mm ascending polyp, 4 mm polyps in sigmoid,Mild sigmoid diverticulosis, Small internal and external hemorrhoids. No evidence of bleed. Esophagitis with patent Schatzki : Continue PPI, GI is following Concern for cirrhosis- US organ elastography.GI following Nausea vomiting diarrhea and unintentional weight loss multifactorial secondary to cholecystitis, colitis and alcohol use. Supportive care. Electrolyte replacements as needed. Hypotension- fluid bolus. Midodrine 10 TID. Correct electrolyte abnormality Alcohol use disorder-thiamine folate multivitamin. CIWA if needed. Monitor for withdrawals. Leukocytosis-resolving, secondary to above. Continue Zosyn. History of breast cancer approximately 6 years prior status post lumpectomy and 5 years of tamoxifen Disposition awaiting final GI and reports Marvel Ng MD 03/26/2025 12:06 PM * Marisela Rothn, RD - 03/26/2025 11:47 AM EDT Comprehensive Nutrition Assessment Type and Reason for Visit: Reassess Nutrition Recommendations/Plan: Recommend low fat diet with standard high calorie, high protein ONS TID when able Malnutrition Assessment: Malnutrition Status: At risk for malnutrition (03/26/25 1144) Context: Acute Illness Findings of the 6 clinical characteristics of malnutrition: Energy Intake: 75% or less of estimated energy requirements for 7 or more days Weight Loss: Mild weight loss (Pt reports loss of 4% x 2 weeks) Body Fat Loss: No body fat loss Muscle Mass Loss: No muscle mass loss Fluid Accumulation: No fluid accumulation Resin Mixer Strength: Not Performed Nutrition Assessment: Pt currently NPO for procedure today, but was previously on Regular, Cardiac diet with 76-100% consumed x 2 meals. Pt was also ordered Ensure with meals, and states she did try it and like it. She isagreeable to trying Ensure with meals again once diet advances. Pt reports she is feeling much better, but had very poor appetite/intake for about 2 weeks prior to admission, mostly d/t abd pain and N/V. 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 Pt is asing what she should be eating and is asking for written information. Provided Pt with written information from nutrition care manual on low fat diet as well as sample meal plans, with RD contact information provided. Verbally reviewed information, and advised patient that recommendations may change based on diagnosis and POC. Nutrition Related Findings: Meds/Labs reviewed. Labs: Na 133, K+ 3.6, LFT's elevated. No edema noted. Last BM 03/24. Wound Type: None Current Nutrition Intake & Therapies: Average Meal Intake: NPO Average Supplements Intake: NPO Diet NPO Exceptions are: Sips of Water with Meds Anthropometric Measures: Height: 170.2 cm (5' 7.01 ) Irene Body Weight (IBW): 135 lbs (61 kg) Admission Body Weight: 54.1 kg (119 lb 4.3 oz) Current Body Weight: 54.1 kg (119 lb 4.3 oz), 88.3 % IBW. Weight Source: Not specified Current BMI (kg/m2): 18.7 Usual Body Weight: 56.7 kg (125 lb) % Weight Change (Calculated): -4.6 Weight Adjustment For: No Adjustment BMI Categories: Normal Weight (BMI 18.5-24.9) Estimated Daily Nutrient Needs: Energy Requirements Based On: Kcal/kg Weight Used for Energy Requirements: Current Energy (kcal/day): 1600-1800kcals/day Weight Used for Protein Requirements: Current Protein (g/day): 80-90g protein/d Method Used for Fluid Requirements: 1 ml/kcal Fluid (ml/day): or per medical team Nutrition Diagnosis: Inadequate oral intake related to nausea/vomiting/diarrhea as evidenced by NPO or clear liquid status due to medical condition, poor intake prior to admission, weight loss Nutrition Interventions: Food and/or Nutrient Delivery: Start Oral Diet, Start Oral Nutrition Supplement Nutrition Education/Counseling: Education/Counseling completed Coordination of Nutrition Care: Continue to monitor while inpatient Plan of Care discussed with: Patient Goals: Goals: Initiation of nutrition, by next RD assessment Type of Goal: New goal Previous Goal Met: No Progress toward Goal(s) Nutrition Monitoring and Evaluation: Behavioral-Environmental Outcomes: None Identified Food/Nutrient Intake Outcomes: Food and Nutrient Intake, Supplement Intake Physical Signs/Symptoms Outcomes: Biochemical Data, GI Status, Weight Discharge Planning: Too soon to determine Mary Roth RD Contact: * Josias Corona MD - 03/25/2025 12:58 PM EDT Images from the original note were not included. [facility] Office: [phone] Marquez Scott DO, Garth Casanova DO, Kenny Vicente DO, Edu Akers DO, Ubaldo Nava MD, Yasmeen Day MD, Darian Covarrubias MD, Pualy Keane MD, Terence Marte MD, Cordelia Medina MD, Sana Guaman MD, Tania Forman DO, Luigi Scott DO, Kaylie Briones MD, Ariel Glez DO, Emily Miller MD, Catina Melissa MD, Josias Corona MD, Jamil Louie MD, Carlyle Bledsoe MD,Estefany Badillo MD, Marvel Ng MD, Elvis Malave MD, Natalie Monroe MD, Jarred Dias DO,Yahaira Ma MD, Connro Neal DO, Kingsley James MD, Francisco Licona MD, Tania Bustillos MD, Manuel Bustillos MD, Berry Holder MD, Ruth Causey, SVP, Za Del Valle, SVP, Jarred Sandoval, SVP, Declan, [facility], Gabby Epstein, SVP, Carmen Pack, SVP, Amber Del Toro, SVP, Lula Alvarado, SVP, Julia Ortiz, PA-C, Linda Guidry, SVP, Lillie Gipson, SVP, Magaly Lind, SVP, Ni Rodriguez, SVP, Shaun Cabrales, PA-C, Danica Hernandez PA-C, Shivani Díaz, SVP, Lily Esteves, SVP, Tracy Richardson, SVP, Carmela Wills, SURGICAL CORSETIER, Sheila Smith, SVP, Kate Macias, SVP, Jeanie Fox, SVP [facility] IN-PATIENT SERVICE [facility] Progress Note 03/25/2025 12:58 PM Name: Eneida Mejia Acct: [id number] Room: [address] [place] [address] Day: 3 Admit Date: 03/22/2025 7:27 PM PCP: Sudhir Gonzalez MD Code Status: Full Code Subjective: C/C: N/V/Abd pain/diarrhea Interval History Status: Not changed No overnight issues. Seen postprocedure. Blood pressure was soft. Given fluid bolus and ProAmatine.Labs reviewed. Hypokalemia and hypomagnesemia LFTs trended down.WBC down trended. Hb stable. S/p EGD-minimal esophagitis with patent schatzki. Mild PHG r/o cirrhosis. Colonoscopy-6 mm ascending polyp, 4 mm polyps in sigmoid, Mild sigmoid diverticulosis, Small internal and external hemorrhoids. No evidence of bleed. Brief History: 49-year-old female with history of breast cancer status post left lumpectomy status post tamoxifen treatment, nicotine dependence and alcohol abuse presented as a transfer from [facility] for management of acute cholecystitis and concern for choledocholithiasis. Reported nausea vomiting diarrhea, abd pain and unintentional weight loss since last [address] abdomen pelvis showed GB distention with CBD dilation. GI consulted. 03/25-S/p EGD-minimal esophagitis with patent schatzki. Mild PHG r/o cirrhosis. Colonoscopy-6 mm ascending polyp, 4 mm polyps in sigmoid, Mild sigmoid diverticulosis, Small internal and external hemorrhoids. No evidence of bleed. Review of Systems: Review of Systems Constitutional: Negative for chills, fatigue and fever. HENT: Negative for congestion, hearing loss and rhinorrhea. Respiratory: Negative for cough, shortness of breath and wheezing. Cardiovascular: Negative for chest pain, palpitations and leg swelling. Gastrointestinal: Positive for abdominal pain and diarrhea. Negative for abdominal distention and vomiting. Endocrine: Negative for polydipsia and polyphagia. Genitourinary: Negative for difficulty urinating and dysuria. Musculoskeletal: Negative for arthralgias and back pain. Skin: Negative for rash and wound. Neurological: Negative for dizziness, seizures, light-headedness and headaches. Psychiatric/Behavioral: Negative for agitation and behavioral problems. Medications: Allergies: No Known Allergies Current Meds: Scheduled Meds: potassium chloride 10 mEq IntraVENous Once midodrine 10 mg Oral TID WC sodium chloride 250 mL IntraVENous Once midodrine 10 mg Oral Once metroNIDAZOLE Topical BID potassium chloride 20 mEq Oral Daily sodium chloride flush 5-40 mL IntraVENous 2 times per day [Held by provider] enoxaparin 40 mg SubCUTAneous Daily piperacillin-tazobactam 3,375 mg IntraVENous Q8H pantoprazole (PROTONIX) 40 mg in sodium chloride (PF) 0.9 % 10 mL injection 40 mg IntraVENous Daily Continuous Infusions: 0.9% NaCl with KCl 20 mEq sodium chloride PRN Meds: magnesium sulfate, sodium chloride flush, calcium carbonate, aluminum & magnesium hydroxide-simethicone, sodium chloride flush, sodium chloride, potassium chloride OR potassium alternative oral replacement OR potassium chloride, ondansetron OR ondansetron, acetaminophen OR acetaminophen, polyethylene glycol, HYDROmorphone, melatonin, rOPINIRole Data: Past Medical History: has a past medical history of Cancer (HCC), History of breast cancer, and Restless legs. Social History: reports that she has been smoking cigarettes. She started smoking about 29 years ago. She has a 29.4 pack-year smoking history. She does not have any smokeless tobacco history on file. She reports current alcohol use of about 3.0 standard drinks of alcohol per week. She reports thatshe does not currently use drugs. Family History: History reviewed. No pertinent family history. Vitals: BP 105/60 Pulse 68 Temp 98.2 ??F (36.8 ??C) (Temporal) Resp 17 Ht 1.702 m (5' 7.01 ) Wt 54.1 kg (119 lb 4.3 oz) SpO2 100% BMI 18.68 kg/m?? Temp (24hrs), Av.3 ??F (36.8 ??C), Min:98.1 ??F (36.7 ??C), Max:98.6 ??F (37 ??C) No results for input(s): POCGLU in the last 72 hours. I/O (24Hr): Intake/Output Summary (Last 24 hours) at 03/25/2025 1258 Last data filed at 03/25/2025 1120 Gross per 24 hour Intake 200 ml Output 300 ml Net -100 ml Labs: Hematology: Recent Labs 03/23/25 0520 03/24/25 0630 03/25/25 0651 WBC 13.8* 13.5* 11.8* RBC 2.07* 2.35* 2.14* HGB 7.8* 8.9* 8.1* HCT 24.1* 28.1* 25.5* MCV 116.4* 119.6* 119.2* MCH 37.7* 37.9* 37.9* MCHC 32.4 31.7 31.8 RDW 14.7* 14.6* 14.2 PLT 275 293 234 MPV 10.7 10.8 11.3 INR 1.2 1.1 -- Chemistry: Recent Labs 03/23/25 0503/23/25 1424 03/24/258 03/24/2530 03/25/25 0651 NA 131* 131* 129* 134* 135* K 2.8* 3.5* 3.6* 3.7 2.9* CL 93* 95* 97* 100 103 CO2 27 25 22 24 21 GLUCOSE 78 77 87 99 71* BUN 8 5* 3* 2* <2* CREATININE 0.4* 0.3* 0.3* 0.4* 0.3* MG 1.2* 1.4* -- -- 1.5* ANIONGAP 11 11 10 10 11 LABGLOM >90 >90 >90 >90 >90 CALCIUM 8.2* 7.6* 7.3* 7.5* 6.7* PHOS 2.8 -- -- -- -- Recent Labs 03/22/25 2134 03/23/2551903/23/2520 03/24/258 03/24/25 0630 03/25/25 0651 TSH -- 1.96 -- -- -- -- AST -- 151* < > 145* 142* 95* ALT -- 73* < > 64* 69* 48* ALKPHOS -- 227* < > 210* 233* 194* BILITOT -- 6.6* < > 6.4* 6.6* 5.3* LIPASE 10* -- -- -- -- -- HDL -- 22* -- -- -- -- CHOLHDLRATIO -- 16.3* -- -- -- -- VLDL -- 27 -- -- -- -- < > = values in this interval not displayed. ABG:No results found for: POCPH , PHART , PH , POCPCO2 , PNZ1ZKJ , PCO2 , POCPO2 , PO2ART , PO2 , POCHCO3 , BPZ8DBJ , HCO3 , NBEA , PBEA , BEART , BE , THGBART , THB , KNT6KOF , YWOG4ILB , H8OGUXSL , O2SAT , FIO2 No results found for: SPECIAL No results found for: CULTURE Radiology: No results found. Physical Examination: Physical Exam Constitutional: Appearance: She is well-developed. HENT: Head: Normocephalic and atraumatic. Eyes: General: Scleral icterus present. Left eye: No discharge. Pupils: Pupils are equal, round, and reactive to light. Neck: Thyroid: No thyromegaly. Vascular: No JVD. Cardiovascular: Rate and Rhythm: Normal rate and regular rhythm. Heart sounds: Normal heart sounds. No murmur heard. Pulmonary: Effort: Pulmonary effort is normal. Breath sounds: Normal breath sounds. No wheezing. Abdominal: General: Bowel sounds are normal. There is no distension. Palpations: Abdomen is soft. Tenderness: There is abdominal tenderness. There is no rebound. Musculoskeletal: General: No tenderness. Normal range of motion. Cervical back: Normal range of motion and neck supple. Neurological: Mental Status: She is alert and oriented to person, place, and time. Cranial Nerves: No cranial nerve deficit. Psychiatric: Behavior: Behavior normal. Assessment: Hospital Problems Last Modified POA * (Principal) Acute cholecystitis 03/22/2025 Yes History of breast cancer 03/22/2025 Yes Restless legs 03/22/2025 Yes Tobacco user 03/22/2025 Yes Jaundice 03/22/2025 Yes Hepatic steatosis 03/22/2025 Yes Common bile duct dilatation 03/22/2025 Yes Unintended weight loss 03/22/2025 Yes Daily consumption of alcohol 03/22/2025 Yes Generalized abdominal pain 03/22/2025 Yes Gastritis without bleeding 03/25/2025 Yes Adenomatous polyp of ascending colon 03/25/2025 Yes Plan: Transaminitis secondary to acute cholecystitis with concern for choledocholithiasis-evaluated by GIeval. S/p MRCP concerning for pancreatitis versus CBD stricture with no evidence of choledocholithiasis or intrahepatic bile duct dilatation. Also concerning for cholecystitis. S/p EGD-minimal esophagitis with patent schatzki. Mild PHG r/o cirrhosis. Colonoscopy-6 mm ascending polyp, 4 mm polyps in sigmoid,Mild sigmoid diverticulosis, Small internal and external hemorrhoids. No evidence of bleed. Concern for cirrhosis- US organ elastography.GI following Nausea vomiting diarrhea and unintentional weight loss multifactorial secondary to cholecystitis, colitis and alcohol use. Supportive care. Electrolyte replacements as needed. Hypotension- fluid bolus. Midodrine 10 TID. Electrolyte derangements hypokalemia, hypomagnesemia, hyponatremia-replace electrolytes as needed Chronic colitis-s/ p colonoscopy. Alcohol use disorder-thiamine folate multivitamin. CIWA if needed. Monitor for withdrawals. Leukocytosis-secondary to above. Continue Zosyn. History of breast cancer approximately 6 years prior status post lumpectomy and 5 years of tamoxifen Diet -CLD. Josias Corona MD 03/25/2025 12:58 PM * Della Melendez RN - 03/25/2025 10:01 AM EDT Underwear & glasses in belonging bag with label. Hung to IV pole * Rose Traylor RN - 03/25/2025 9:47 AM EDT Critical Lab Result Potassium 2.9. In Home Caregiver notified Dr. Galeana. Potassium Chloride 10mEq/100mL IVPB telephone order per Dr. Galeana. * Luigi Laurent RD - 03/24/2025 4:14 PM EDT Comprehensive Nutrition Assessment Type and Reason for Visit: Initial, Positive nutrition screen Nutrition Recommendations/Plan: Advance diet order as medically appropriate. Clear liquid ONS TID. Malnutrition Assessment: Malnutrition Status: Insufficient data (03/24/25 1613) Context: Acute Illness Nutrition Assessment: Positive RNC. Clear liquid diet order in place. Patient unavailable x 2 during attempted visit. Recommend to start clear ONS TID. Will follow up tomorrow. Nutrition Related Findings: meds/labs reviewed. Wound Type: None Current Nutrition Intake & Therapies: Average Meal Intake: Unable to assess Average Supplements Intake: Unable to assess ADULT DIET; Clear Liquid Diet NPO Anthropometric Measures: Height: 170.2 cm (5' 7.01 ) Irene Body Weight (IBW): 135 lbs (61 kg) Current Body Weight: 54.1 kg (119 lb 4.3 oz), 88.3 % IBW. Weight Source: Not specified Current BMI (kg/m2): 18.7 Weight Adjustment For: No Adjustment BMI Categories: Underweight (BMI less than 18.5) Estimated Daily Nutrient Needs: Energy Requirements Based On: Kcal/kg Weight Used for Energy Requirements: Current Energy (kcal/day): 1600-1800kcals/day Weight Used for Protein Requirements: Current Protein (g/day): 80-90g protein/d Method Used for Fluid Requirements: 1 ml/kcal Fluid (ml/day): or per medical team Nutrition Diagnosis: Inadequate oral intake related to nausea/vomiting/diarrhea as evidenced by NPO or clear liquid status due to medical condition Nutrition Interventions: Food and/or Nutrient Delivery: Continue Current Diet, Start Oral Nutrition Supplement Nutrition Education/Counseling: No recommendation at this time Coordination of Nutrition Care: Continue to monitor while inpatient Goals: Goals: PO intake 50% or greater, within 2 days Type of Goal: New goal Previous Goal Met: New Goal Nutrition Monitoring and Evaluation: Behavioral-Environmental Outcomes: None Identified Food/Nutrient Intake Outcomes: Food and Nutrient Intake, Supplement Intake Physical Signs/Symptoms Outcomes: Biochemical Data, GI Status, Nutrition Focused Physical Findings,Skin, Weight, Fluid Status or Edema, Nausea or Vomiting Discharge Planning: Too soon to determine Luigi Laurent RD Contact: [phone] * Dimas Andujar MD - 03/24/2025 1:39 PM EDT [facility] Progress Note Eneida Mejia is a 49 y.o. female patient. Hospitalization Day:2 Chief consult reason: Abdominal pain, diarrhea, elevated LFTs Subjective: She is still having nausea/vomiting. No blood in emesis or stool. Her abdominal pain/diarrhea improved. Hgb 8.1 from 7.8. WBC 13.5 from 13.8. VITALS: BP (!) 83/63 Comment: Notified provider - giving fluid bolus Pulse 78 Temp 99.5 ??F (37.5 ??C) (Oral) Resp 17 Ht 1.702 m (5' 7 ) Wt 54.1 kg (119 lb 4.3 oz) SpO2 100% BMI 18.68 kg/m?? TEMPERATURE: Current - Temp: 99.5 ??F (37.5 ??C); Max - Temp Av ??F (37.2 ??C) Min: 98.2 ??F (36.8 ??C) Max: 99.5 ??F (37.5 ??C) Physical Assessment: General appearance: alert, cooperative and no distress Mental Status: oriented to person, place and time and normal affect Lungs: normal effort Heart: regular rate Abdomen: soft, nontender, nondistended Extremities: no edema, redness, tenderness in the calves Skin: no gross lesions, rashes, induration Data Review: Labs and Imaging: MRCP FINDINGS: LIVER: Severe loss of signal intensity seen on ktq-dw-ieyzc imaging consistent with severe hepatic steatosis. Mild hepatomegaly measuring 23 cm in craniocaudal dimension. GALLBLADDER AND BILIARY SYSTEM: Cholelithiasis and biliary sludge with nonspecific wall thickening. There is nonspecific edema seenat the vernon hepatis with inflammation seen near the expected location of the extrahepatic common bile duct, as well as fluid tracking into the falciform ligament and near the gallbladder and pancreatic body. There is some edema within the pancreatic body, raising the possibility of pancreatitis without ductal dilatation or a discrete lesion. No significant intrahepatic biliary dilatation. A portion of the extrahepatic bile duct near the vernon hepatis is not visualized, with the more distal aspect ofthe common bile duct at the level of the pancreatic head being normal. SPLEEN: Unremarkable. PANCREAS/PANCREATIC DUCT: There is some edema within the pancreatic body, raising the possibility of pancreatitis without ductal dilatation or a discrete lesion. No pancreatic ductal dilatation. ADRENAL GLANDS: Unremarkable. KIDNEYS: Unremarkable. LYMPH NODES: There are a few reactive, nonenlarged retroperitoneal lymph nodes. VASCULATURE: Unremarkable. PERITONEUM: Fluid tracking into the falciform ligament and near the gallbladder and pancreatic body. No ascites. ABDOMINAL WALL: No hernia. No mass. BOWEL: Grossly unremarkable. No bowel obstruction. BONES: No acute abnormality or worrisome osseous lesion. SOFT TISSUES: Unremarkable. MISCELLANEOUS: Trace bilateral pleural effusions, right greater than left. IMPRESSION: 1. Nonspecific edema seen at the vernon hepatis/extrahepatic common bile duct and pancreatic body raised the possibility pancreatitis versus CBD stricture. No definite evidence of choledocholithiasis or intrahepatic bile dilatation. 2. Nonspecific gallbladder wall thickening with cholelithiasis, raising the possibility of cholecystitis. CBC: Recent Labs 03/23/25 0503/24/25 0630 WBC 13.8* 13.5* HGB 7.8* 8.9* MCV 116.4* 119.6* RDW 14.7* 14.6* PLT 275 293 ANEMIA STUDIES: No results for input(s): TIBC , FERRITIN , TNDWJPFB28 , FOLATE , OCCULTBLD in the last 72 hours. Invalid input(s): LABIRON BMP: Recent Labs 03/23/25 0503/23/25142303/24/25 0048 03/24/25 0630 NA 131* 131* 129* 134* K 2.8* 3.5* 3.6* 3.7 CL 93* 95* 97* 100 CO2 27 25 22 24 BUN 8 5* 3* 2* CREATININE 0.4* 0.3* 0.3* 0.4* GLUCOSE 78 77 87 99 CALCIUM 8.2* 7.6* 7.3* 7.5* MG 1.2* 1.4* -- -- LFTS: Recent Labs 03/23/2551903/24/258 03/24/25 0630 ALKPHOS 227* 210* 233* ALT 73* 64* 69* AST 151* 145* 142* BILITOT 6.6* 6.4* 6.6* Other pertinent labs: MELD 3.0: 19 at 03/24/2025 6:30 AM MELD-Na: 17 at 03/24/2025 6:30 AM Calculated from: Serum Creatinine: 0.4 mg/dL (Using min of 1 mg/dL) at 03/24/2025 6:30 AM Serum Sodium: 134 mmol/L at 03/24/2025 6:30 AM Total Bilirubin: 6.6 mg/dL at 03/24/2025 6:30 AM Serum Albumin: 2.8 g/dL at 03/24/2025 6:30 AM INR(ratio): 1.1 at 03/24/2025 6:30 AM Age at listing (hypothetical): 49 years Sex: Female at 03/24/2025 6:30 AM Gastroenterology impression and plan: Abdominal pain, weight loss, nausea, vomiting, change in bowel habits, jaundice in the setting of daily / heavy etoh intake. Concern for acute cholecystitis on imaging with GB wall thickening, normal CBD, no evidence of ductdilation or CBD stone, fatty liver Chronic inflammatory changes of chronic colitis most prominent ascending colon. No past EGD/colonoscopy Hx breast cancer post left lumpectomy approximately 6 years ago followed by 5 years of tamoxifen Labs suggest Etoh hepatitis, but would not tx with prednisolone until we can rule out bleeding, infection She has a degree of chronic liver disease from etoh. RECOMMENDATIONS: Plan for EGD and colonoscopy 03/25 Clear liquid diet with bowel prep today Trend lft's, INR Will check stool studies r/o infection if diarrhea returns Chronic pancreatitis from etoh, stones sludge which may not be seen on MRCP. Ultimately she will benefit from an EUS down the line, but not emergently. Etoh cessation discussed. PPI General surgery consultation for cholecystitis on imaging Will continue to follow This plan was formulated in collaboration with Dr. Pratima MD Thank you for allowing me to participate in the care of your patient. Please feel free to contact me with any questions or concerns. [facility] Gastroenterology Reba Gonzalez PA-C [phone] 03/24/2025 1:42 PM Attending Physician Attestation: I have discussed the care of Eneida Mejia and I have examined the patient myselft and taken ros and hpi , including pertinent history and exam findings, with the author of this note . I have reviewed the lei elements of all parts of the encounter with the nurse practitioner/resident. I agree with the assessment, plan and orders as documented by the above health care provider with the following addendum. More than 50% of the time was spent taking care of this patient in addition to the nurse practitioner time. That also included history taking follow-up physical examination and review of system. * Josias Corona MD - 03/24/2025 7:56 AM EDT Images from the original note were not included. [facility] Office: [phone] Marquez Scott DO, Garth Casanova, DO, Kenny Vicente DO, Edu Akers DO, Ubaldo Nava MD, Yasmeen Day MD, Darian Covarrubias MD, Pauly Keane MD, Terence Marte MD, Cordelia Medina MD, Sana Guaman MD, Tania Forman DO, Luigi Scott DO, Kaylie Briones MD, Ariel Glez DO, Emily Miller MD, Catina Melissa MD, Josias Corona MD, Jamil Louie MD, Carlyle Bledsoe MD,Estefany Badillo MD, Marvel Ng MD, Elvis Malave MD, Natalie Monroe MD, Jarred Dias DO,Yahaira Ma MD, Connor Neal DO, Kingsley James MD, Francisco Licona MD, Tania Bustillos MD, Manuel Bustillos MD, Berry Holder MD, Ruth Causey, GABRIEL, Za Del Valle SVP, Jarred Sandoval, SVP, TAI Manriquez, Gabby Epstein, SVP, Carmen Pack, SVP, Amber Del Toro SVP, Lula Avlarado SVP, KASH HowellC, Linda Guidry, SVP, Lillie Gipson, SVP, Magaly Lind, SVP, Ni Rodriguez, SVP, KASH SueroC, Danica Hernandez PA-C, Shivani Díaz SVP, Lily Esteves, SVP, Tracy Richardson, SVP, Carmela Wills, SURGICAL CORSETIER, Sheila Smith, SVP, Kate Macias, SVP, Jeanie Fox, SVP [facility] IN-PATIENT SERVICE [facility] Progress Note 03/24/2025 7:56 AM Name: Eneida Mejia Acct: [id number] Room: [address] [place] [address] Day: 2 Admit Date: 03/22/2025 7:27 PM PCP: Sudhir Gonzalez MD Code Status: Full Code Subjective: C/C: N/V/Abd pain/diarrhea Interval History Status: Not changed Hypotensive overnight. Requiring fluid bolus. Blood pressure soft this morning. Maintaining MAP. Add ProAmatine. Asymptomatic. Labs reviewed. MRCP done concerning for pancreatitis versus CBD stricture with no definitive evidence of choledocholithiasis or intrahepatic bile duct dilatation. Also concerns for possible cholecystitis. Will follow-up further recommendations from GI. Brief History: 49-year-old female with history of breast cancer status post left lumpectomy status post tamoxifen treatment, nicotine dependence and alcohol abuse presented as a transfer from [facility] for management of acute cholecystitis and concern for choledocholithiasis. Reported nausea vomiting diarrhea, abd pain and unintentional weight loss since last [address] abdomen pelvis showed GB distention with CBD dilation. GI consulted. Plan for MRCP. Review of Systems: Review of Systems Constitutional: Negative for chills, fatigue and fever. HENT: Negative for congestion, hearing loss and rhinorrhea. Respiratory: Negative for cough, shortness of breath and wheezing. Cardiovascular: Negative for chest pain, palpitations and leg swelling. Gastrointestinal: Positive for abdominal pain, diarrhea and vomiting. Negative for abdominal distention. Endocrine: Negative for polydipsia and polyphagia. Genitourinary: Negative for difficulty urinating and dysuria. Musculoskeletal: Negative for arthralgias and back pain. Skin: Negative for rash and wound. Neurological: Negative for dizziness, seizures, light-headedness and headaches. Psychiatric/Behavioral: Negative for agitation and behavioral problems. Medications: Allergies: No Known Allergies Current Meds: Scheduled Meds: potassium chloride 20 mEq Oral Daily sodium chloride flush 5-40 mL IntraVENous 2 times per day enoxaparin 40 mg SubCUTAneous Daily piperacillin-tazobactam 3,375 mg IntraVENous Q8H pantoprazole (PROTONIX) 40 mg in sodium chloride (PF) 0.9 % 10 mL injection 40 mg IntraVENous Daily Continuous Infusions: sodium chloride 100 mL/hr at 03/24/25 0326 sodium chloride PRN Meds: calcium carbonate, aluminum & magnesium hydroxide-simethicone, sodium chloride flush,sodium chloride, potassium chloride OR potassium alternative oral replacement OR potassium chloride, magnesium sulfate, ondansetron OR ondansetron, acetaminophen OR acetaminophen, polyethylene glycol, HYDROmorphone, melatonin, rOPINIRole Data: Past Medical History: has a past medical history of Cancer (HCC), History of breast cancer, and Restless legs. Social History: reports that she has been smoking cigarettes. She started smoking about 29 years ago. She has a 29.4 pack-year smoking history. She does not have any smokeless tobacco history on file. She reports current alcohol use of about 3.0 standard drinks of alcohol per week. She reports thatshe does not currently use drugs. Family History: No family history on file. Vitals: BP (!) 83/63 Comment: Notified provider - giving fluid bolus Pulse 78 Temp 99.5 ??F (37.5 ??C) (Oral) Resp 17 Ht 1.702 m (5' 7 ) Wt 54.1 kg (119 lb 4.3 oz) SpO2 100% BMI 18.68 kg/m?? Temp (24hrs), Av.9 ??F (37.2 ??C), Min:98.2 ??F (36.8 ??C), Max:99.5 ??F (37.5 ??C) No results for input(s): POCGLU in the last 72 hours. I/O (24Hr): No intake or output data in the 24 hours ending 03/24/25 0756 Labs: Hematology: Recent Labs 03/23/25 0520 WBC 13.8* RBC 2.07* HGB 7.8* HCT 24.1* MCV 116.4* MCH 37.7* MCHC 32.4 RDW 14.7* PLT 275 MPV 10.7 INR 1.2 Chemistry: Recent Labs 03/23/25 0520 03/23/25 1424 03/24/25 0048 03/24/25 0630 NA 131* 131* 129* 134* K 2.8* 3.5* 3.6* 3.7 CL 93* 95* 97* 100 CO2 27 25 22 24 GLUCOSE 78 77 87 99 BUN 8 5* 3* 2* CREATININE 0.4* 0.3* 0.3* 0.4* MG 1.2* 1.4* -- -- ANIONGAP 11 11 10 10 LABGLOM >90 >90 >90 >90 CALCIUM 8.2* 7.6* 7.3* 7.5* PHOS 2.8 -- -- -- Recent Labs 03/22/25 2134 03/23/25 0520 03/24/25 0048 03/24/25 0630 TSH -- 1.96 -- -- AST -- 151* 145* 142* ALT -- 73* 64* 69* ALKPHOS -- 227* 210* 233* BILITOT -- 6.6* 6.4* 6.6* LIPASE 10* -- -- -- HDL -- 22* -- -- CHOLHDLRATIO -- 16.3* -- -- VLDL -- 27 -- -- ABG:No results found for: POCPH , PHART , PH , POCPCO2 , KSY8BIM , PCO2 , POCPO2 , PO2ART , PO2 , POCHCO3 , ATZ0VWG , HCO3 , NBEA , PBEA , BEART , BE , THGBART , THB , SBQ8MQO , CVHJ6DZO , X3YPZADV , O2SAT , FIO2 No results found for: SPECIAL No results found for: CULTURE Radiology: No results found. Physical Examination: Physical Exam Constitutional: Appearance: She is well-developed. HENT: Head: Normocephalic and atraumatic. Eyes: General: Scleral icterus present. Left eye: No discharge. Pupils: Pupils are equal, round, and reactive to light. Neck: Thyroid: No thyromegaly. Vascular: No JVD. Cardiovascular: Rate and Rhythm: Normal rate and regular rhythm. Heart sounds: Normal heart sounds. No murmur heard. Pulmonary: Effort: Pulmonary effort is normal. Breath sounds: Normal breath sounds. No wheezing. Abdominal: General: Bowel sounds are normal. There is no distension. Palpations: Abdomen is soft. Tenderness: There is abdominal tenderness. There is no rebound. Musculoskeletal: General: No tenderness. Normal range of motion. Cervical back: Normal range of motion and neck supple. Neurological: Mental Status: She is alert and oriented to person, place, and time. Cranial Nerves: No cranial nerve deficit. Psychiatric: Behavior: Behavior normal. Assessment: Hospital Problems Last Modified POA * (Principal) Acute cholecystitis 03/22/2025 Yes History of breast cancer 03/22/2025 Yes Restless legs 03/22/2025 Yes Tobacco user 03/22/2025 Yes Jaundice 03/22/2025 Yes Hepatic steatosis 03/22/2025 Yes Common bile duct dilatation 03/22/2025 Yes Unintended weight loss 03/22/2025 Yes Daily consumption of alcohol 03/22/2025 Yes Generalized abdominal pain 03/22/2025 Yes Plan: Transaminitis secondary to acute cholecystitis with concern for choledocholithiasis-continue supportive care. GI eval. MRCP done concerning for pancreatitis versus CBD stricture with no evidence of choledocholithiasis or intrahepatic bile duct dilatation. Also concerning for cholecystitis. Plan for EGD colonoscopy by GI tomorrow. General surgery consulted for management of cholecystitis.. Daily CMP and INR. Nausea vomiting diarrhea and unintentional weight loss multifactorial secondary to cholecystitis, colitis and alcohol use. Supportive care. Electrolyte replacements as needed. Electrolyte derangements hypokalemia, hypomagnesemia, hyponatremia-replace electrolytes as needed Chronic tvtpdda-sxwsgf-xv stool studies. Alcohol use disorder-thiamine folate multivitamin. CIWA if needed. Monitor for withdrawals. Leukocytosis-secondary to above. Continue Zosyn. History of breast cancer approximately 6 years prior status post lumpectomy and 5 years of tamoxifen Hypokalemia resolved. Hypotensive overnight. Required fluid bolus. Add ProAmatine. Continue fluids.MRCP done concerning for pancreatitis versus CBD stricture with no definitive evidence of choledocholithiasis or intrahepatic bile duct dilatation. Also concerns for possible cholecystitis. Plan for EGD colonoscopy by GI tomorrow. Clear liquid diet. Bowel prep today. General surgery consulted for cholecystitis management. Josias Corona MD 03/24/2025 7:56 AM * Josias Corona MD - 03/23/2025 8:11 AM EDT Images from the original note were not included. [facility] Office: [phone] Marquez Scott DO, Garth Casanova DO, Kenny Vicente DO, Edu Akers DO, Ubaldo Nava MD, Yasmeen Day MD, Darian Covarrubias MD, Pauly Keane MD, Terence Marte MD, Cordelia Medina MD, Sana Guaman MD, Tania Forman DO, Luigi Scott DO, Kaylie Briones MD, Ariel Glez DO, Emily Miller MD, Catina Melissa MD, Josias Corona MD, Jamil Louie MD, Carlyle Bledsoe MD,Estefany Badillo MD, Marvel Ng MD, Elvis Malave MD, Natalie Monroe MD, Jarred Dias DO,Yahaira Ma MD, Connor Neal DO, Kingsley James MD, Francisco Licona MD, Tania Bustillos MD, Manuel Bustillos MD, Berry Holder MD, Ruth Causey, SVP, Za Del Valle, SVP, Jarred Sandoval, SVP, TAI Manriquez, Gabby Epstein, SVP, Carmen Pack, SVP, Amber Del Toro, SVP, Lula Alvarado, SVP, Julia Ortiz, PA-C, Linda Guidry, SVP, Lillie Gipson, SVP, Magaly Lind, SVP, Ni Rodriguez, SVP, Shaun Cabrales, PA-C, Danica Hernandez, PA-C, Shivani Díaz, SVP, Lily Esteves, SVP, Tracy Richardson, SVP, Carmela Wills, SURGICAL CORSETIER, Sheila Smith, SVP, Kate Macias, SVP, Jenaie Fox, SVP [facility] IN-PATIENT SERVICE [facility] Progress Note 03/23/2025 8:12 AM Name: Eneida Mejia Acct: [id number] Room: [address] [place], [place] [id number]-[facility] Day: 1 Admit Date: 03/22/2025 7:27 PM PCP: Sudhir Gonzalez MD Code Status: Full Code Subjective: C/C: N/V/Abd pain/diarrhea Interval History Status: Not changed Hemodynamically stable. Continues to feel nauseous, has belly pain. No active vomiting. Labs reviewed. On electrolyte replacements as needed. Pending GI eval. Brief History: 49-year-old female with history of breast cancer status post left lumpectomy status post tamoxifen treatment, nicotine dependence and alcohol abuse presented as a transfer from [facility] for management of acute cholecystitis and concern for choledocholithiasis. Reported nausea vomiting diarrhea, abd pain and unintentional weight loss since last [address] abdomen pelvis showed GB distention with CBD dilation. GI consulted Review of Systems: Review of Systems Constitutional: Negative for chills, fatigue and fever. HENT: Negative for congestion, hearing loss and rhinorrhea. Respiratory: Negative for cough, shortness of breath and wheezing. Cardiovascular: Negative for chest pain, palpitations and leg swelling. Gastrointestinal: Positive for abdominal pain, diarrhea and vomiting. Negative for abdominal distention. Endocrine: Negative for polydipsia and polyphagia. Genitourinary: Negative for difficulty urinating and dysuria. Musculoskeletal: Negative for arthralgias and back pain. Skin: Negative for rash and wound. Neurological: Negative for dizziness, seizures, light-headedness and headaches. Psychiatric/Behavioral: Negative for agitation and behavioral problems. Medications: Allergies: No Known Allergies Current Meds: Scheduled Meds: sodium chloride flush 5-40 mL IntraVENous 2 times per day enoxaparin 40 mg SubCUTAneous Daily piperacillin-tazobactam 3,375 mg IntraVENous Q8H pantoprazole (PROTONIX) 40 mg in sodium chloride (PF) 0.9 % 10 mL injection 40 mg IntraVENous Daily Continuous Infusions: 0.9% NaCl with KCl 20 mEq sodium chloride PRN Meds: sodium chloride flush, sodium chloride, potassium chloride OR potassium alternative oral replacement OR potassium chloride, magnesium sulfate, ondansetron OR ondansetron, acetaminophen OR acetaminophen, polyethylene glycol, HYDROmorphone, melatonin, rOPINIRole Data: Past Medical History: has a past medical history of Cancer (HCC), History of breast cancer, and Restless legs. Social History: reports that she has been smoking cigarettes. She started smoking about 29 years ago. She has a 29.4 pack-year smoking history. She does not have any smokeless tobacco history on file. She reports current alcohol use of about 3.0 standard drinks of alcohol per week. She reports thatshe does not currently use drugs. Family History: No family history on file. Vitals: BP (!) 93/42 Pulse 72 Temp 98.6 ??F (37 ??C) (Oral) Resp 14 Ht 1.702 m (5' 7 ) Wt 54.1 kg(119 lb 4.3 oz) SpO2 97% BMI 18.68 kg/m?? Temp (24hrs), Av.4 ??F (36.9 ??C), Min:97.9 ??F (36.6 ??C), Max:98.6 ??F (37 ??C) No results for input(s): POCGLU in the last 72 hours. I/O (24Hr): No intake or output data in the 24 hours ending 03/23/25 0812 Labs: Hematology: Recent Labs 03/23/25 0520 WBC 13.8* RBC 2.07* HGB 7.8* HCT 24.1* MCV 116.4* MCH 37.7* MCHC 32.4 RDW 14.7* PLT 275 MPV 10.7 INR 1.2 Chemistry: Recent Labs 03/23/25 0520 NA 131* K 2.8* CL 93* CO2 27 GLUCOSE 78 BUN 8 CREATININE 0.4* MG 1.2* ANIONGAP 11 LABGLOM >90 CALCIUM 8.2* PHOS 2.8 Recent Labs 03/22/25 2134 03/23/25 0520 TSH -- 1.96 AST -- 151* ALT -- 73* ALKPHOS -- 227* BILITOT -- 6.6* LIPASE 10* -- HDL -- 22* CHOLHDLRATIO -- 16.3* VLDL -- 27 ABG:No results found for: POCPH , PHART , PH , POCPCO2 , EBS0VDC , PCO2 , POCPO2 , PO2ART , PO2 , POCHCO3 , AMP0QMS , HCO3 , NBEA , PBEA , BEART , BE , THGBART , THB , RIT0NEK , WTIB6WUT , U1CFAMOS , O2SAT , FIO2 No results found for: SPECIAL No results found for: CULTURE Radiology: No results found. Physical Examination: Physical Exam Constitutional: Appearance: She is well-developed. HENT: Head: Normocephalic and atraumatic. Eyes: General: Scleral icterus present. Left eye: No discharge. Pupils: Pupils are equal, round, and reactive to light. Neck: Thyroid: No thyromegaly. Vascular: No JVD. Cardiovascular: Rate and Rhythm: Normal rate and regular rhythm. Heart sounds: Normal heart sounds. No murmur heard. Pulmonary: Effort: Pulmonary effort is normal. Breath sounds: Normal breath sounds. No wheezing. Abdominal: General: Bowel sounds are normal. There is no distension. Palpations: Abdomen is soft. Tenderness: There is abdominal tenderness. There is no rebound. Musculoskeletal: General: No tenderness. Normal range of motion. Cervical back: Normal range of motion and neck supple. Neurological: Mental Status: She is alert and oriented to person, place, and time. Cranial Nerves: No cranial nerve deficit. Psychiatric: Behavior: Behavior normal. Assessment: Hospital Problems Last Modified POA * (Principal) Acute cholecystitis 03/22/2025 Yes History of breast cancer 03/22/2025 Yes Restless legs 03/22/2025 Yes Tobacco user 03/22/2025 Yes Jaundice 03/22/2025 Yes Hepatic steatosis 03/22/2025 Yes Common bile duct dilatation 03/22/2025 Yes Unintended weight loss 03/22/2025 Yes Daily consumption of alcohol 03/22/2025 Yes Generalized abdominal pain 03/22/2025 Yes Plan: Transaminitis secondary to acute cholecystitis with concern for choledocholithiasis-continue supportive care. GI eval. plan for MRCP. Daily CMP and INR. Nausea vomiting diarrhea and unintentional weight loss multifactorial secondary to cholecystitis, colitis and alcohol use. Supportive care. Electrolyte replacements as needed. Electrolyte derangements hypokalemia, hypomagnesemia, hyponatremia-replace electrolytes as needed Chronic clehnag-nhfjpn-dw stool studies. Alcohol use disorder-thiamine folate multivitamin. CIWA if needed. Monitor for withdrawals. Leukocytosis-secondary to above. Continue Zosyn. History of breast cancer approximately 6 years prior status post lumpectomy and 5 years of tamoxifen Josias Corona MD 03/23/2025 8:12 AM documented in this encounter Plan of Treatment NameTypePriorityAssociated DiagnosesOrder ScheduleSurgical PathologyLabRoutine Anemia, unspecified type Release Upon Ordering for 1 Occurrences starting 03/25/2025Surgical PathologyLab Routine Anemia, unspecified type Release Upon Ordering for 1 Occurrences starting 03/25/2025Surgical PathologyLab Routine Anemia, unspecified type Release Upon Ordering for 1 Occurrences starting 03/25/2025Surgical PathologyLab Routine Common bile duct stricture (HCC) Release Upon Ordering for 1 Occurrences starting 03/26/2025Surgical PathologyLab Routine Acute cholecystitis Release Upon Ordering for 1 Occurrences starting 03/29/2025documented as of this encounter Procedures Procedure NamePriorityDate/TimeAssociated DiagnosisCommentsBASIC METABOLIC PANEL W/ REFLEX TO MG FOR LOW LXodgbkz66/19/2025 5:29 AM EDT CBC WITH AUTO ZQAQFYJSPQNEQmkzybe56/19/2025 5:29 AM EDT HEPATIC FUNCTION CRKFPTpjzngz84/19/2025 5:29 AM EDT AMHHWALOVLKBQgptucy12/18/2025 6:26 AM EDT BASIC METABOLIC PANEL W/ REFLEX TO MG FOR LOW DEzqqdlg82/18/2025 6:26 AM EDT YCOUxkxdwx79/18/2025 6:26 AM EDT CZJIWYFEOMrguvjd39/18/2025 6:26 AM EDT HEPATIC FUNCTION TJGSTLdgqnug06/18/2025 6:26 AM EDT CO LAPAROSCOPY SURG AUSOQEYARUUTMTJ01/17/2025 9:57 AM EDT Acute cholecystitis Special Needs MINI TRACY-RESIDENT. BASIC METABOLIC PANEL W/ REFLEX TO MG FOR LOW XYectptk56/17/2025 6:24 AM EDT POWFaaidug26/17/2025 6:24 AM EDT HEPATIC FUNCTION RIGQZTgowcag31/17/2025 6:24 AM EDT SURGICAL PATHOLOGY SREJBYFadevdu33/17/2025 12:00 AM EDT HEPATIC FUNCTION WFBBBWztkvrj62/16/2025 4:26 AM EDT XR ABDOMEN (KUB) (SINGLE AP VIEW)Mpieyuj8003/27/2025 3:36 PM EDT PREVIOUS PISMWWVMLWYA83/15/2025 2:55 PM EDTCOMPREHENSIVE METABOLIC PANEL W/ REFLEX TO MG FOR LOW KSTAT1 2:55 PM EDT ECHO (TTE) PKODLXYFJwfoxjv76/15/2025 11:55 AM EDT Hypotension, unspecified hypotension type AWARfycrfg88/15/2025 11:26 AM EDT US GI ENDOSCOPIC S&BWtvfalb67/14/2025 11:44 PM EDT FLUORO FOR SURGICAL XEZPXROVIPKpyeudb01/14/2025 6:17 PM EDT CYTOLOGY, NON-ZXJVeixjta76/14/2025 4:28 PM EDT Common bile duct stricture (HCC) ENDOSCOPIC RETROGRADE CHOLANGIOPANCREATOGRAPHY SPHINCTER/MVJHLJMGYWZ29/14/2025 3:55 PM EDT Common bile duct stricture (HCC) Special Needs IVETH-GI. ESOPHAGOGASTRODUODENOSCOPY JMYPHQ4603/26/2025 3:55 PM EDT Common bile duct stricture (HCC) Special Needs IVETH-GI. ESOPHAGOGASTRODUODENOSCOPY ENDOSCOPIC ULTRASOUND FINE NEEDLE ASPIRATION 03/26/2025 3:55 PM EDT Common bile duct stricture (HCC) Special Needs IVETH-GI. ENDOSCOPIC RETROGRADE CHOLANGIOPANCREATOGRAPHY STENT XVJBWVZZA65/14/2025 3:55 PM EDT Common bile duct stricture (HCC) Special Needs IVETH-GI. SURGICAL PATHOLOGY ZCSTZDGqyouyn30/14/2025 9:22 AM EDT COMPREHENSIVE METABOLIC PANEL W/ REFLEX TO MG FOR LOW EBfsahzo51/14/2025 6:46 AM EDT CBC WITH AUTO RPKPPLAQSRIIUzqmbwa15/14/2025 6:46 AM EDT SURGICAL PATHOLOGY ESKQOIRlezrsc31/14/2025 12:00 AM EDT COMPREHENSIVE METABOLIC XXGPHOydcy53/14/2025 12:00 AM EDT BASIC METABOLIC PANEL W/ REFLEX TO MG FOR LOW AVkrogex86/13/2025 8:16 PM EDT PREVIOUS OJZTHDXVQehobri81/13/2025 3:59 PM EDTVITAMIN B12 & FOLATERoutine 03/25/2025 3:59 PM EDT US ORGAN ZQGODPAGNLNNDcsoqzt31/13/2025 12:16 PM EDT COLONOSCOPY RTTNZJ1503/25/2025 9:40 AM EDT Anemia, unspecified type COLONOSCOPY POLYPECTOMY SNARE/IXCEJX5303/25/2025 9:40 AM EDT Anemia, unspecified type ESOPHAGOGASTRODUODENOSCOPY LGXPVD2603/25/2025 9:40 AM EDT Anemia, unspecified type COMPREHENSIVE METABOLIC PANEL W/ REFLEX TO MG FOR LOW FHihhodg89/13/2025 6:51 AM EDT CBC WITH AUTO RVAQNJDCBGXKOzewjot97/13/2025 6:51 AM EDT IRON AND OUZRWirsxkt93/13/2025 6:51 AM EDT FGVUIMNUBOlflrwv61/13/2025 6:51 AM EDT PVUMRFCQWaprqxu33/13/2025 6:51 AM EDT SURGICAL PATHOLOGY ILWCFEDogcfur70/13/2025 12:00 AM EDT MRI ABDOMEN W WO CONTRAST OUSEOnawsxa60/12/2025 9:32 AM EDT COMPREHENSIVE METABOLIC PANEL W/ REFLEX TO MG FOR LOW SLsjvhvm50/12/2025 6:30 AM EDT CBC WITH AUTO LNVMNCGOZHCMQohlpxj62/12/2025 6:30 AM EDT PROTIME-RJILmetysj89/12/2025 6:30 AM EDT COMPREHENSIVE METABOLIC UUQGBWszmn84/12/2025 12:48 AM EDT GASTROINTESTINAL PANEL, MOLECULARSunquest Label 03/23/2025 6:24 PM EDT C DIFF TOXIN/ANTIGENSunquest Label Print03/23/2025 6:24 PM EDT BASIC METABOLIC PANEL W/ REFLEX TO MG FOR LOW KSTAT1 2:24 PM EDT IYJZMISHFWydwcgs28/11/2025 2:24 PM EDT LIPID, SHYKBGZWyqzbjp55/11/2025 5:20 AM EDT TSH REFLEX TO BY7Gofobvs48/11/2025 5:20 AM EDT COMPREHENSIVE METABOLIC PANEL W/ REFLEX TO MG FOR LOW CUnrodnc42/11/2025 5:20 AM EDT CBC WITH AUTO PYJQRFVAWQZDUgtynwy86/11/2025 5:20 AM EDT PROTIME-JUOZwtsjad55/11/2025 5:20 AM EDT UQLVMBNTJXSjhvdaf93/11/2025 5:20 AM EDT XLONULPVTTpukzry29/11/2025 5:20 AM EDT QVENZXRtmybzv75/10/2025 9:34 PM EDT documented in this encounter Results * (ABNORMAL) Basic Metabolic Panel w/ Reflex to MG (03/31/2025 5:29 AM EDT) ComponentValueRef RangeTest MethodAnalysis TimePerformed AtPathologist KdfkrjzgoRjlmst921246 - 145 mmol/L1 5:29 AM EDTM[facility] Potassium4.23.7 - 5.3 mmol/L1 5:29 AM EDTMERCY LABORATORIESComment: Specimen hemolysis has exceeded the interference as defined by Francesco. Value may be falsely increased. Suggest recollection if clinically indicated. Zcdcdrrs76838 - 107 mmol/L1 5:29 AM EDTMERCY CGXYBKRIUFVNHW03795 - 31 mmol/L1 5:29 AM EDTMERCY LABORATORIESAnion Gap6(L)9 - 16 mmol/L 03/31/2025 5:29 AM EDTMERCY LIBCJEVQWIZKZcbeslq7129 - 99 mg/dL03/31/2025 5:29 AM EDTMERCY LABORATORIESBUN3(L)6 - 20 mg/dL03/31/2025 5:29 AM EDTM[facility] Creatinine0.4(L)0.6 - 0.9 mg/dL03/31/2025 5:29 AM EDTMERCY LABORATORIESEst, Glom Filt Rate>90>60 mL/min/1.70u69203/31/2025 5:29 AM EDTMERCY LABORATORIESComment: ? These results are not intended for use in patients <18 years of age. ? eGFR results are calculated without a race factor using the 2020 CKD-EPI equation. Careful clinical correlation is recommended, particularly when comparing to results calculated using previous equations. The CKD-EPI equation is less accurate in patients with extremes of muscle mass, extra-renal metabolism of creatine, excessive creatine ingestion, or following therapy that affects renal tubular secretion. Calcium8.5(L)8.6 - 10.4 mg/dL03/31/2025 5:29 AM EDTMERCY LABORATORIESSpecimen (Source)Anatomical Location / LateralityCollection Method / VolumeCollection TimeReceived TimeBloodBLOOD SPECIMEN / Ihubbcd8503/31/2025 5:29 AM EDT1 5:57 AM EDT Narrative Authorizing ProviderResult TypeResult StatusAndrew C Ehrsam DOCHEMISTRY ORDERABLESFinal ResultPerforming OrganizationAddressCity/State/ZIP CodePhone Number [facility]ITALOpenClov[facility] [address] [phone] * (ABNORMAL) CBC with Auto Differential (03/31/2025 5:29 AM EDT)ComponentValue Ref RangeTest MethodAnalysis TimePerformed AtPathologist SignatureWBC7.83.5 - 11.3 k/uL03/31/2025 5:29 AM EDTMERCY LABORATORIESRBC2.58(L)3.95 - 5.11 m/uL 03/31/2025 5:29 AM EDTMERCY LABORATORIESHemoglobin9.6(L)11.9 - 15.1 g/dL 03/31/2025 5:29 AM EDTMERCY MZUJNWHDKKPCBrlzkvqeut42.5(L)36.3 - 47.1 % 03/31/2025 5:29 AM EDTMERCY QTAXMPCTAKOIZAJ870.2(H)82.6 - 102.9 fL03/31/2025 5:29 AM EDTMERCY MBINXYCOFDKSGYV25.2(H)25.2 - 33.5 pg03/31/2025 5:29 AM EDT [facility] OIJNTYVKGSTYKOCG14.528.4 - 34.8 g/dL03/31/2025 5:29 AM EDTMERCY HSWAOQJZFMKVNGV92.211.8 - 14.4 %03/31/2025 5:29 AM EDTMERCY LABORATORIES Mydjcdagh363821 - 453 k/uL03/31/2025 5:29 AM EDTMERCY NXLVFSOBDXTLTCZ32.48.1 - 13.5 fL03/31/2025 5:29 AM EDTMERCY LABORATORIESNRBC Automated0.00.0 per 100 WBC03/31/2025 5:29 AM EDTMERCY LABORATORIESImmature Granulocytes %00 % 03/31/2025 5:29 AM EDTMERCY LABORATORIESNeutrophils %73(H)36 - 65 %03/31/2025 5:29 AM EDTMERCY LABORATORIESLymphocytes %16(L)24 - 43 %03/31/2025 5:29 AM EDT [facility]IESMonocytes %83 - 12 %03/31/2025 5:29 AM EDTMERCY [facility]ATORIES Eosinophils %21 - 4 %03/31/2025 5:29 AM EDTMERCY LABORATORIESBasophils %10 - 2 %03/31/2025 5:29 AM EDTMERCY LABORATORIESImmature Granulocytes Absolute0.00 0.00 - 0.30 k/uL03/31/2025 5:29 AM EDTMERCY LABORATORIESNeutrophils Absolute 5.691.50 - 8.10 k/uL03/31/2025 5:29 AM EDTMERCY LABORATORIESLymphocytes Absolute1.251.10 - 3.70 k/uL03/31/2025 5:29 AM EDTMERCY LABORATORIESMonocytes Absolute0.620.10 - 1.20 k/uL03/31/2025 5:29 AM EDTM[facility]CY [facility] Eosinophils Absolute0.160.00 - 0.44 k/uL03/31/2025 5:29 AM EDTMERCY LABORATORIESBasophils Absolute0.080.00 - 0.20 k/uL03/31/2025 5:29 AM EDTMERCY LABORATORIESMorphologyMACROCYTOSIS JGSAFNM4603/31/2025 5:29 AM EDTMERCY LABORATORIESSpecimen (Source)Anatomical Location / LateralityCollection Method / VolumeCollection TimeReceived TimeBloodBLOOD SPECIMEN / Kvyzxap9503/31/2025 5:29 AM EDT1 5:57 AM EDT Narrative Authorizing ProviderResult TypeResult StatusAndrew Iris Tracy DOHEMATOLOGY ORDERABLESFinal ResultPerforming OrganizationAddressCity/State/ZIP CodePhone Number [facility] [address] [place] [address], [facility] [phone] * (ABNORMAL) Hepatic Function Panel (03/31/2025 5:29 AM EDT)ComponentValueRef RangeTest MethodAnalysis TimePerformed AtPathologist SignatureAlbumin2.6(L)3.5 - 5.2 g/dL03/31/2025 5:29 AM EDTMERCY LABORATORIESAlkaline Opgyjlhgkbm711(H)35 - 104 U/L1 5:29 AM EDTMERCY HMEBJGDTDPUJMBR1373 - 35 U/L1 5:29 AM EDTMERCY IIAWEFDZLDSKTHP08(H)10 - 35 U/L1 5:29 AM EDTMERCY LABORATORIESComment: Specimen hemolysis has exceeded the interference as defined by Francesco. Value may be falsely increased. Suggest recollection if clinically indicated. Total Bilirubin3.1(H)0.0 - 1.2 mg/dL03/31/2025 5:29 AM EDTMERCY LABORATORIES Bilirubin, Direct2.3(H)0.0 - 0.2 mg/dL03/31/2025 5:29 AM EDTM[facility]CY LAB[facility] Bilirubin, Indirect0.80.0 - 1.0 mg/dL03/31/2025 5:29 AM EDTM[facility] Total Protein5.5(L)6.6 - 8.7 g/dL03/31/2025 5:29 AM EDTM[facility]CY [facility] Globulin2.9g/dL03/31/2025 5:29 AM EDTMERCY LABORATORIESAlbumin/Globulin Ratio0.9 (L)1.0 - 2. 5:29 AM EDTMERCY LABORATORIESSpecimen (Source)Anatomical Location / LateralityCollection Method / VolumeCollection TimeReceived TimeBlood BLOOD SPECIMEN / Jyqiziq9903/31/2025 5:29 AM EDT1 5:57 AM EDT Narrative Authorizing ProviderResult TypeResult StatusRivkatin D Letha DOCHEMISTRY ORDERABLESFinal ResultPerforming OrganizationAddressCity/State/ZIP CodePhone Number [place] [phone] [place] [address], [facility] [phone] * (ABNORMAL) Magnesium (03/30/2025 6:26 AM EDT)ComponentValueRef RangeTest MethodAnalysis TimePerformed AtPathologist SignatureMagnesium1.3(L)1.6 - 2.6 mg/dL03/30/2025 6:26 AM EDTMERCY LABORATORIESSpecimen (Source)Anatomical Location / LateralityCollection Method / VolumeCollection TimeReceived Time 03/30/2025 6:26 AM EDT1 8:30 AM EDT Narrative Authorizing ProviderResult TypeResult StatusIsaias Monae DOCHEMISTRY ORDERABLESFinal ResultPerforming OrganizationAddressCity/State/ZIP CodePhone Number [facility] [address] [phone] * (ABNORMAL) Differential (03/30/2025 6:26 AM EDT)ComponentValueRef RangeTest MethodAnalysis TimePerformed AtPathologist SignatureRBC MorphologyMACROCYTOSIS CHIPQAL7303/30/2025 6:26 AM EDTMERCY LABORATORIESImmature Granulocytes %1(H)0 % 03/30/2025 6:26 AM EDTMERCY LABORATORIESNeutrophils %73(H)36 - 65 %03/30/2025 6:26 AM EDTMERCY LABORATORIESLymphocytes %14(L)24 - 43 %03/30/2025 6:26 AM EDT [facility]IESMonocytes %103 - 12 %03/30/2025 6:26 AM EDTMERCY LABORATORIESEosinophils %11 - 4 %03/30/2025 6:26 AM EDTMERCY LABORATORIES Basophils %10 - 2 %03/30/2025 6:26 AM EDTMERCY LABORATORIESImmature Granulocytes Absolute0.100.00 - 0.30 k/uL03/30/2025 6:26 AM EDTMERCY LABORATORIESNeutrophils Absolute7.531.50 - 8.10 k/uL03/30/2025 6:26 AM EDT [facility]ATORIESLymphocytes Absolute1.441.10 - 3.70 k/uL03/30/2025 6:26 AM EDTMERCY LABORATORIESMonocytes Absolute1.030.10 - 1.20 k/uL03/30/2025 6:26 AM EDTMERCY LABORATORIESEosinophils Absolute0.100.00 - 0.44 k/uL03/30/2025 6:26 AM EDTMERCY LABORATORIESBasophils Absolute0.100.00 - 0.20 k/uL03/30/2025 6:26 AM EDTMERCY LABORATORIESMorphologyMACROCYTOSIS HFIJZXP1303/30/2025 6:26 AM EDT [facility]IESSpecimen (Source)Anatomical Location / LateralityCollection Method / VolumeCollection TimeReceived Time03/30/2025 6:26 AM EDT1 8:30 AM EDT Narrative Authorizing ProviderResult TypeResult StatusIsaias Monae DOCHEMISTRY ORDERABLESFinal ResultPerforming OrganizationAddressCity/State/ZIP CodePhone Number [facility] [address] [place] [address], [facility] [phone] * (ABNORMAL) CBC (03/30/2025 6:26 AM EDT)ComponentValueRef RangeTest Method Analysis TimePerformed AtPathologist GwjcmqqxeJLN43.33.5 - 11.3 k/uL03/30/2025 6:26 AM EDTMERCY LABORATORIESRBC2.51(L)3.95 - 5.11 m/uL03/30/2025 6:26 AM EDT [facility]ORATORIESHemoglobin9.3(L)11.9 - 15.1 g/dL03/30/2025 6:26 AM EDTMERCY TFBXFNTXNCNHLddnietfgb42.0(L)36.3 - 47.1 %03/30/2025 6:26 AM EDTMERCY RHQEUSQXDPQFGET278.5(H)82.6 - 102.9 fL03/30/2025 6:26 AM EDTMERCY LABORATORIES MCH37.1(H)25.2 - 33.5 pg03/30/2025 6:26 AM EDTMERCY YKSRATNOIZOTMSVF12.028.4 - 34.8 g/dL03/30/2025 6:26 AM EDTMERCY XAORYVBHVFLLUDC95.211.8 - 14.4 % 03/30/2025 6:26 AM EDTMERCY FHYMNUFCPONUZeixpheci329936 - 453 k/uL03/30/2025 6:26 AM EDTMERCY VHJYSJGHDOOOUQI55.88.1 - 13.5 fL03/30/2025 6:26 AM EDTMERCY LABORATORIESNRBC Automated0.00.0 per 100 WBC10/ 6:26 AM EDTMERCY LABORATORIESSpecimen (Source)Anatomical Location / LateralityCollection Method / VolumeCollection TimeReceived Time03/30/2025 6:26 AM EDT1 8:30 AM EDT Narrative Authorizing ProviderResult TypeResult StatusAustin Jones Monae DOHEMATOLOGY ORDERABLESFinal ResultPerforming OrganizationAddressCity/State/ZIP CodePhone Number [facility] [employer] [address] [place] [address], [facility] [phone] * (ABNORMAL) Basic Metabolic Panel w/ Reflex to MG (03/30/2025 6:26 AM EDT) ComponentValueRef RangeTest MethodAnalysis TimePerformed AtPathologist GtnmmsguwPmfxho024(L)136 - 145 mmol/L1 6:26 AM EDTMERCY LABORATORIES Potassium3.2(L)3.7 - 5.3 mmol/L1 6:26 AM EDTMERCY LABORATORIES Gkmhboue26744 - 107 mmol/L1 6:26 AM EDTMERCY TDTAPXYBANHWUZ61121 - 31 mmol/L1 6:26 AM EDTMERCY LABORATORIESAnion Qec407 - 16 mmol/L 03/30/2025 6:26 AM EDTMERCY RBPYYXIKBONJLshyuxp9674 - 99 mg/dL03/30/2025 6:26 AM EDTMERCY LABORATORIESBUN3(L)6 - 20 mg/dL03/30/2025 6:26 AM EDTMERCY LABORATORIESCreatinine0.4(L)0.6 - 0.9 mg/dL03/30/2025 6:26 AM EDTMERCY LABORATORIESEst, Glom Filt Rate>90>60 mL/min/1.53i97703/30/2025 6:26 AM EDTMERCY LABORATORIESComment: ? These results are not intended for use in patients <18 years of age. ? eGFR results are calculated without a race factor using the 2020 CKD-EPI equation. Careful clinical correlation is recommended, particularly when comparing to results calculated using previous equations. The CKD-EPI equation is less accurate in patients with extremes of muscle mass, extra-renal metabolism of creatine, excessive creatine ingestion, or following therapy that affects renal tubular secretion. Calcium8.2(L)8.6 - 10.4 mg/dL03/30/2025 6:26 AM EDTMERCY LABORATORIESSpecimen (Source)Anatomical Location / LateralityCollection Method / VolumeCollection TimeReceived Time03/30/2025 6:26 AM EDT1 8:30 AM EDT Narrative Authorizing ProviderResult TypeResult StatusIsaias Monae DOCHEMISTRY ORDERABLESFinal ResultPerforming OrganizationAddressCity/State/ZIP CodePhone Number [facility] [employer] [address] [place] [address], [facility] [phone] * (ABNORMAL) Hepatic Function Panel (03/30/2025 6:26 AM EDT)ComponentValueRef RangeTest MethodAnalysis TimePerformed AtPathologist SignatureAlbumin2.6(L)3.5 - 5.2 g/dL03/30/2025 6:26 AM EDTMERCY LABORATORIESAlkaline Xtxpqikshvz077(H)35 - 104 U/L1 6:26 AM EDTMERCY KZFAKFXLVHGNLFS5306 - 35 U/L1 6:26 AM EDTMERCY UOIMKFZIXSCYKSH51(H)10 - 35 U/L1 6:26 AM EDTMERCY LABORATORIESTotal Bilirubin3.3(H)0.0 - 1.2 mg/dL03/30/2025 6:26 AM EDTMERCY LABORATORIESBilirubin, Direct2.6(H)0.0 - 0.2 mg/dL03/30/2025 6:26 AM EDTMERCY LABORATORIESBilirubin, Indirect0.70.0 - 1.0 mg/dL03/30/2025 6:26 AM EDTMERCY LABORATORIESTotal Protein5.5(L)6.6 - 8.7 g/dL03/30/2025 6:26 AM EDTMERCY LABORATORIESGlobulin2.9g/dL03/30/2025 6:26 AM EDTM[facility]CY LAB[facility]ATORIES Albumin/Globulin Ratio0.9(L)1.0 - 2. 6:26 AM EDTMERCY LABORATORIES Specimen (Source)Anatomical Location / LateralityCollection Method / Volume Collection TimeReceived TimeBloodBLOOD SPECIMEN / Ogtotee9303/30/2025 6:26 AM EDT1 8:30 AM EDT Narrative Authorizing ProviderResult TypeResult StatusIsaias Monae DOCHEMISTRY ORDERABLESFinal ResultPerforming OrganizationAddressCity/State/ZIP CodePhone Number ROBYN Sch[address]eder[address] [place] [address], [facility] [phone] * (ABNORMAL) Hepatic Function Panel (03/29/2025 6:24 AM EDT)ComponentValueRef RangeTest MethodAnalysis TimePerformed AtPathologist SignatureAlbumin2.6(L)3.5 - 5.2 g/dL03/29/2025 6:24 AM EDTMERCY LABORATORIESAlkaline Nmbcmyvcaqf407(H)35 - 104 U/L1 6:24 AM EDTMERCY AAOTNUMLYNCLUSZ1951 - 35 U/L1 6:24 AM EDTMERCY NGXXDQDCLPLYNCY23(H)10 - 35 U/L1 6:24 AM EDTMERCY LABORATORIESComment: Specimen hemolysis has exceeded the interference as defined by Francesco. Value may be falsely increased. Suggest recollection if clinically indicated. Total Bilirubin4.2(H)0.0 - 1.2 mg/dL03/29/2025 6:24 AM EDTMER[facility] Bilirubin, Direct3.0(H)0.0 - 0.2 mg/dL03/29/2025 6:24 AM EDTM[facility] Bilirubin, Indirect1.2(H)0.0 - 1.0 mg/dL03/29/2025 6:24 AM EDTM[facility] Total Protein5.8(L)6.6 - 8.7 g/dL03/29/2025 6:24 AM EDTM[facility] Globulin3.2g/dL03/29/2025 6:24 AM EDTMERCY LABORATORIESAlbumin/Globulin Ratio0.8 (L)1.0 - 2. 6:24 AM EDTMERCY LABORATORIESSpecimen (Source)Anatomical Location / LateralityCollection Method / VolumeCollection TimeReceived TimeBlood BLOOD SPECIMEN / Vnsfzlr7403/29/2025 6:24 AM EDT1 6:42 AM EDT Narrative Authorizing ProviderResult TypeResult StatusIsaias Monae DOCHEMISTRY ORDERABLESFinal ResultPerforming OrganizationAddressCity/State/ZIP CodePhone Number [facility]Open[facility] [address] [place] [address], [facility] [phone] * (ABNORMAL) CBC (03/29/2025 6:24 AM EDT)ComponentValueRef RangeTest Method Analysis TimePerformed AtPathologist SignatureWBC8.63.5 - 11.3 k/uL03/29/2025 6:24 AM EDTMERCY LABORATORIESRBC2.44(L)3.95 - 5.11 m/uL03/29/2025 6:24 AM EDT [facility] LABORATORIESHemoglobin9.1(L)11.9 - 15.1 g/dL03/29/2025 6:24 AM EDTMERCY FREQLKQUEOZZMsueydmqas76.6(L)36.3 - 47.1 %03/29/2025 6:24 AM EDTMERCY GYVEAOMWMKCPWNW251.3(H)82.6 - 102.9 fL03/29/2025 6:24 AM EDTM[facility] MCH37.3(H)25.2 - 33.5 pg03/29/2025 6:24 AM EDTMERCY ZYHUGBSEZMEAZKFR86.728.4 - 34.8 g/dL03/29/2025 6:24 AM EDTMERCY GPJYLZOJCJVSFXN62.311.8 - 14.4 % 03/29/2025 6:24 AM EDTMERCY FUYSYPXFOETIGcmvesjma880544 - 453 k/uL03/29/2025 6:24 AM EDTMERCY ODYSKSQYIEEUWTY33.38.1 - 13.5 fL03/29/2025 6:24 AM EDTMERCY LABORATORIESNRBC Automated0.00.0 per 100 WBC03/29/2025 6:24 AM EDTMERCY LABORATORIESSpecimen (Source)Anatomical Location / LateralityCollection Method / VolumeCollection TimeReceived TimeBLOOD SPECIMEN / Rayjkxb8903/29/2025 6:24 AM EDT1 6:42 AM EDT Narrative Authorizing ProviderResult TypeResult StatusMarvel Ng MDHEMATOLOGY ORDERABLESFinal ResultPerforming OrganizationAddressCity/State/ZIP CodePhone Number [facility] [employer] [address] [place] [address], [facility] [phone] * (ABNORMAL) Basic Metabolic Panel w/ Reflex to MG (03/29/2025 6:24 AM EDT) ComponentValueRef RangeTest MethodAnalysis TimePerformed AtPathologist NkflfkiwdOxvhan091(L)136 - 145 mmol/L1 6:24 AM EDTMERCY LABORATORIES Potassium4.23.7 - 5.3 mmol/L1 6:24 AM EDTMERCY LABORATORIESComment: Specimen hemolysis has exceeded the interference as defined by Francesco. Value may be falsely increased. Suggest recollection if clinically indicated. Wbndqoxa67250 - 107 mmol/L1 6:24 AM EDTMERCY GMBYMDAZXEMHOH56995 - 31 mmol/L1 6:24 AM EDTMERCY LABORATORIESAnion Gap7(L)9 - 16 mmol/L 03/29/2025 6:24 AM EDTMERCY FWQVZVBIOCMYKmpdgti6238 - 99 mg/dL03/29/2025 6:24 AM EDTMERCY LABORATORIESBUN2(L)6 - 20 mg/dL03/29/2025 6:24 AM EDTM[facility] Creatinine0.4(L)0.6 - 0.9 mg/dL03/29/2025 6:24 AM EDTMERCY LABORATORIESComment: Specimen icterus has exceeded the interference as defined by Francesco. Result may be affected.Est, Glom Filt Rate>90>60 mL/min/1.64q51003/29/2025 6:24 AM EDTMERCY LABORATORIESComment: ? These results are not intended for use in patients <18 years of age. ? eGFR results are calculated without a race factor using the 2020 CKD-EPI equation. Careful clinical correlation is recommended, particularly when comparing to results calculated using previous equations. The CKD-EPI equation is less accurate in patients with extremes of muscle mass, extra-renal metabolism of creatine, excessive creatine ingestion, or following therapy that affects renal tubular secretion. Calcium8.5(L)8.6 - 10.4 mg/dL03/29/2025 6:24 AM EDTMERCY LABORATORIESSpecimen (Source)Anatomical Location / LateralityCollection Method / VolumeCollection TimeReceived TimeBloodBLOOD SPECIMEN / Fdohxxk1903/29/2025 6:24 AM EDT1 6:42 AM EDT Narrative Authorizing ProviderResult TypeResult StatusBayan Zac Ng MDCHEMISTRY ORDERABLESFinal ResultPerforming OrganizationAddressCity/State/ZIP CodePhone Number [facility]Device[facility] [address] [place] [address], [facility] [phone] * SURGICAL PATHOLOGY REPORT (03/29/2025 12:00 AM EDT)ComponentValueRef RangeTest MethodAnalysis TimePerformed AtPathologist SignatureSurgical Pathology Report Path Number: [id number] -- Diagnosis -- Gallbladder: -Cholelithiasis and mild chronic inflammation. Myles Rocha M.D. Electronically Signed Out ? rdd/04/01/2025 Clinical Information Pre-Op Diagnosis: ??ACUTE CHOLECYSTITIS Operative Findings: ??GALLBLADDER AND CONTENTS Operation Performed: ??LAPAROSCOPIC ROBOTIC CHOLECYSTECTOMY, POSSIBLE INTRAOPERATIVE CHOLANGIOGRAM, POSSIBLE OPEN se Source of Specimen A: GALLBLADDER AND CONTENTS Gross Description ENEIDA MEJIA, GALLBLADDER AND CONTENTS Received in formalin is a 6.5 x 3.5 x 2.0 cm markedly disrupted gallbladder with a 0.8 cm long x 0.5 cm in diameter cystic duct. ??The serosa is pink-mcintosh, and the liver bed is coarse mcintosh-brown. ??The wall ranges in thickness from 0.1 to 0.3 cm and appears focally fibrotic. The lumen contains a small amount of tenacious yellow bile. ??Gravel you fine stone material is Heeren to the mucosal surface. ??No large calculi are present. ??The mucosa is mcintosh and velvety. ??Cystic duct margin and sections of gallbladder mucosa 1cs. ?christine Stout/se:03/29/2025 Microscopic Description Microscopic examination performed. Processing Lab: ??[address] [address] Interpretation Performed at [address] [address] SURGICAL PATHOLOGY CONSULTATION Patient Name: ENEIDA MEJIA [facility] Rec: [id number] [facility] ??[facility] ANATOMIC PATHOLOGY [address] [facility]. ??[place], [place] [address] bON NotifoMOUNTAIN [facility] [employer] LABSSpecimen (Source)Anatomical Location / LateralityCollection Method / VolumeCollection TimeReceived Time 2:07 PM EDT Narrative Authorizing ProviderResult TypeResult StatusAmer Jennifer Sue MD PATHOLOGY/CYTOLOGY ORDERABLESFinal ResultPerforming OrganizationAddress City/State/ZIP CodePhone Number [facility] [address] [place] [address], [facility] [phone] [facility] [employer] [facility] * (ABNORMAL) Hepatic Function Panel (03/28/2025 4:26 AM EDT)ComponentValueRef RangeTest MethodAnalysis TimePerformed AtPathologist SignatureAlbumin2.6(L)3.5 - 5.2 g/dL03/28/2025 4:26 AM EDTMERCY LABORATORIESAlkaline Zsyglixrgcg400(H)35 - 104 U/L1 4:26 AM EDTMERCY DGQBLTVGLZIAFUG8733 - 35 U/L1 4:26 AM EDTMERCY JDXCPDTKWOCSWPT54(H)10 - 35 U/L1 4:26 AM EDTMERCY LABORATORIESTotal Bilirubin4.1(H)0.0 - 1.2 mg/dL03/28/2025 4:26 AM EDTMERCY LABORATORIESBilirubin, Direct3.3(H)0.0 - 0.2 mg/dL03/28/2025 4:26 AM EDTMERCY LABORATORIESBilirubin, Indirect0.80.0 - 1.0 mg/dL03/28/2025 4:26 AM EDTMERCY LABORATORIESTotal Protein5.5(L)6.6 - 8.7 g/dL03/28/2025 4:26 AM EDTMERCY LABORATORIESGlobulin2.9g/dL03/28/2025 4:26 AM EDTMERCY LABORATORIES Albumin/Globulin Ratio0.9(L)1.0 - 2. 4:26 AM EDTMERCY LABORATORIES Specimen (Source)Anatomical Location / LateralityCollection Method / Volume Collection TimeReceived TimeBloodBLOOD SPECIMEN / Dpdyfxm7703/28/2025 4:26 AM EDT1 4:32 AM EDT Narrative Authorizing ProviderResult TypeResult StatusIsaias Jones Monae DOCHEMISTRY ORDERABLESFinal ResultPerforming OrganizationAddressCity/State/ZIP CodePhone Number [facility] [address] [place] [address], [facility] [phone] * XR ABDOMEN (KUB) (SINGLE AP VIEW) (03/27/2025 3:36 PM EDT)Anatomical Region LateralityModalityAbdomenComputed RadiographySpecimen (Source)Anatomical Location / LateralityCollection Method / VolumeCollection TimeReceived Time 03/27/2025 7:08 PM EDT Impressions 03/27/2025 7:13 PM EDT 1. Presumed vicarious contrast excretion within the gallbladder, cholelithiasis. 2. Unremarkable bowel gas pattern. 3. No radiopaque urinary collecting system calculus evident. Narrative 03/27/2025 7:13 PM EDT EXAMINATION: ONE SUPINE XRAY VIEW OF THE ABDOMEN 03/27/2025 3:54 pm COMPARISON: MRI abdomen 03/24/2025 HISTORY: Abdominal pain, distension FINDINGS: 2 images are presented. ??Unremarkable bowel gas pattern. ??No unusual abdominal or pelvic soft tissue density is seen. ??High density diffusely throughout the gallbladder with apparent filling defects, corresponding to description of gallbladder sludge/cholelithiasis on MRI. ??Presumed biliary stent demonstrated right upper quadrant. ??Visualized osseous structures appear unremarkable. Procedure Note Graham Jeffries MD - 03/27/2025 EXAMINATION: ONE SUPINE XRAY VIEW OF THE ABDOMEN 03/27/2025 3:54 pm COMPARISON: MRI abdomen 03/24/2025 HISTORY: Abdominal pain, distension FINDINGS: 2 images are presented. Unremarkable bowel gas pattern. No unusual abdominal or pelvic soft tissue density is seen. High density diffusely throughout the gallbladder with apparent filling defects, correspondingto description of gallbladder sludge/cholelithiasis on MRI. Presumedbiliary stent demonstrated right upper quadrant. Visualized osseous structures appear unremarkable. IMPRESSION: 1. Presumed vicarious contrast excretion within the gallbladder, cholelithiasis. 2. Unremarkable bowel gas pattern. 3. No radiopaque urinary collecting system calculus evident. Authorizing ProviderResult TypeResult StatusReba BATRES DIAGNOSTIC IMAGING ORDERABLESFinal Result * PREVIOUS SPECIMEN (03/27/2025 2:55 PM EDT)Specimen (Source)Anatomical Location / LateralityCollection Method / VolumeCollection TimeReceived Time03/27/2025 2:55 PM EDT1 3:10 PM EDT Narrative Authorizing ProviderResult TypeResult StatusBakyle Juanaria CoxDennys MDCHEMISTRY ORDERABLESFinal ResultPerforming OrganizationAddressCity/State/ZIP CodePhone Number [facility]DeviceAuthority [address] [place] [address], [facility] [phone] * (ABNORMAL) Comprehensive Metabolic Panel w/ Reflex to MG (03/27/2025 2:55 PM EDT)ComponentValueRef RangeTest MethodAnalysis TimePerformed AtPathologist TtixqfwlyHfmqli479(L)136 - 145 mmol/L1 2:55 PM EDTM[facility] Potassium4.13.7 - 5.3 mmol/L1 2:55 PM EDTMERCY LABORATORIESChloride 52480 - 107 mmol/L1 2:55 PM EDTMERCY HPUEXLAYCAQBDL62198 - 31 mmol/L 03/27/2025 2:55 PM EDTMERCY LABORATORIESAnion Gap6(L)9 - 16 mmol/L1 2:55 PM EDTMERCY NFCXUZYFUPTNUfgcrer046(H)74 - 99 mg/dL03/27/2025 2:55 PM EDT [facility] LABORATORIESBUN3(L)6 - 20 mg/dL03/27/2025 2:55 PM [facility] Creatinine0.3(L)0.6 - 0.9 mg/dL03/27/2025 2:55 PM [facility] Comment:Specimen icterus has exceeded the interference as defined by Francesco. Result may be affected.Est, Glom Filt Rate>90>60 mL/min/1.76q67103/27/2025 2:55 PM EDTMERCY LABORATORIESComment: ? These results are not intended for use in patients <18 years of age. ? eGFR results are calculated without a race factor using the 2020 CKD-EPI equation. Careful clinical correlation is recommended, particularly when comparing to results calculated using previous equations. The CKD-EPI equation is less accurate in patients with extremes of muscle mass, extra-renal metabolism of creatine, excessive creatine ingestion, or following therapy that affects renal tubular secretion. Calcium7.6(L)8.6 - 10.4 mg/dL03/27/2025 2:55 PM EDTMERCY LABORATORIESTotal Protein5.1(L)6.6 - 8.7 g/dL03/27/2025 2:55 PM EDTMERCY LABORATORIESAlbumin2.5(L) 3.5 - 5.2 g/dL03/27/2025 2:55 PM EDTMERCY LABORATORIESAlbumin/Globulin Ratio1.0 1.0 - 2.510 2:55 PM EDTMERCY LABORATORIESTotal Bilirubin4.2(H)0.0 - 1.2 mg/dL03/27/2025 2:55 PM EDTMERCY LABORATORIESAlkaline Zsaaodlvcwa490(H)35 - 104 U/L1 2:55 PM EDTMERCY BWXICBPWJTWCVAQ3646 - 35 U/L10 2:55 PM EDTMERCY UQMFOVCWUSKICDG42(H)10 - 35 U/L1 2:55 PM EDTM[facility] Specimen (Source)Anatomical Location / LateralityCollection Method / Volume Collection TimeReceived Time03/27/2025 2:55 PM EDT1 3:10 PM EDT Narrative Authorizing ProviderResult TypeResult StatusBayan Zac Ng MDCHEMISTRY ORDERABLESFinal ResultPerforming OrganizationAddressCity/State/ZIP CodePhone Number [phone] [place] [address], [facility] [phone] * (ABNORMAL) ECHO (TTE) COMPLETE (03/27/2025 11:55 AM EDT)ComponentValueRef RangeTest MethodAnalysis TimePerformed AtPathologist SignatureLV EDV B2J61lQ [facility] CV CPACSLV EDV S1G41iYJNXO CV CPACSLV ESV Q5S74uUCAJT CV CPACSLV ESV A4C 20mLBSMH CV CPACSIVSd0.80.6 - 0.9 cmBSMH CV CPACSLVIDd4.43.9 - 5.3 cmBSMH CV CPACSLVIDs3.1cmBSMH CV CPACSLVOT Diameter2.0cmBSMH CV CPACSLVOT Mean Gradient2 mmHgBSMH CV CPACSLVOT VTI15.3cmBSMH CV CPACSLVOT Peak Velocity0.9m/sBSMH CV CPACSLVOT Peak Rirfisub4kzNiKJBW CV CPACSLVPWd0.80.6 - 0.9 cmBSMH CV CPACSLV E' Lateral Velocity9.46cm/sBSMH CV CPACSLV E' Septal Velocity6.31cm/sBSMH CV CPACSGlobal longitudinal strain-15.3%[facility] CV CPACSLV Ejection Fraction A2C40% [facility] CV CPACSLV Ejection Fraction A4C61%[facility] CV CPACSEF YV8633 - 100 %[facility] CV CPACSLVOT Area3.0sb8APNR CV CPACSLVOT SV48.0mlBSMH CV CPACSLA Minor Axis3.3cm [facility] CV CPACSLA Major Axis5.3cmBSMH CV CPACSLA Area 2C9.3ws6BQLV CV CPACSLA Area 4C12.1ji5MKCO CV CPACSLA Volume MOD A3L0298 - 52 mLBSMH CV CPACSLA Volume MOD F2A3906 - 52 mLBSMH CV CPACSLA Diameter3.7cmBSMH CV CPACSRA Area 4C12.8cm2 [facility] CV CPACSRA Luhnfj31zvLNTP CV CPACSAV Mean Velocity0.8m/sBSMH CV CPACSAV Mean Clfshifp0zaKaBGEE CV CPACSAV VTI23.0cmBSMH CV CPACSAV Peak Velocity1.2m/s [facility] CV CPACSAV Peak Akzfktmq5pbNoZWNO CV CPACSAV Area by VTI2.4qx1EDNX CV CPACSAV Area by Peak Velocity2.3ba0CPGF CV CPACSAortic Root3.6cmBSMH CV CPACS Ascending Aorta3.0cmBSMH CV CPACSIVC Proxmal1.8cmBSMH CV CPACSMV E Wave Deceleration Bkqt228.0msBSMH CV CPACSMV A Velocity0.75m/sBSMH CV CPACSMV E Velocity0.57m/sBSMH CV CPACSMV Mean Ysvnqkvk5lvKkRPXU CV CPACSMV VTI19.3cmBSMH CV CPACSMV Mean Velocity0.5m/sBSMH CV CPACSMV Max Velocity0.7m/sBSMH CV CPACS MV Peak Qdeiuypg7wiNqKAZX CV CPACSMV Area by VTI2.3xz9WQXY CV CPACSRV Basal Dimension3.1cmBSMH CV CPACSRV Mid Dimension3.1cmBSMH CV CPACSRV Free Wall Peak S'10.3cm/sBSMH CV CPACSTAPSE2.0>=1.7 cmBSMH CV CPACSBody Surface Area1.5r3EPCE CV CPACSFractional Shortening 5V4959 - 44 %BSMH CV CPACSLV ESV Index A4C12 mL/m2BSMH CV CPACSLV EDV Index M5N19jT/m2BSMH CV CPACSLV ESV Index W5G46gB/m2 [facility] CV CPACSLV EDV Index Y1H84wJ/m2BSMH CV CPACSLVIDd Index2.72cm/m2BSMH CV CPACSLVIDs Index1.91cm/m2BSMH CV CPACSLV RWT Ratio0.36BSMH CV CPACSLV Mass 2D 109.467 - 162 gBSMH CV CPACSLV Mass 2D Index67.643 - 95 g/m2BSMH CV CPACSMV E/A0.76BSMH CV CPACSE/E' Ratio (Averaged)7.53BSMH CV CPACSE/E' Lateral6.03BS[facility] CV CPACSE/E' Septal9.03BS[facility] CV CPACSLVOT Stroke Volume Index29.7mL/m2BSMH CV CPACSLA Volume Index MOD A2C14(A)16 - 34 ml/m2BSMH CV CPACSLA Volume Index MOD A4C14(A)16 - 34 ml/m2BS[facility] CV CPACSLA Size Index2.28cm/m2BS[facility] CV CPACSLA/AO Root Ratio1.03BSMH CV CPACSRA Volume Index L3Q05jZ/m2BSMH CV CPACSAo Root Index2.22cm/m2BSMH CV CPACSAscending Aorta Index1.85cm/m2BSMH CV CPACSAV Velocity Ratio0.75BSMH CV CPACSLVOT:AV VTI Index0.67BSMH CV CPACSAVA/BSA VTI 1.3cm2/m2BS[facility] CV CPACSAVA/BSA Peak Velocity1.4cm2/m2BS[facility] CV CPACSMV:LVOT VTI Index1.26BSMH CV CPACSEst. RA Wikimtve7gmXaSHZC CV CPACSEF Awlvblyqm71%BS[facility] CV CPACSAnatomical RegionLateralityModalityEchocardiographySpecimen (Source) Anatomical Location / LateralityCollection Method / VolumeCollection Time Received Time Narrative 03/27/2025 1:58 PM EDT Left Ventricle: Normal left ventricular systolic function with a visually estimated EF of 60 - 65%. Left ventricle size is normal. Normal wall thickness. Normal wall motion. Global longitudinal strain is -15.3%. Normal diastolic function. ?Right??Ventricle: Right ventricle size is normal. Normal systolic function. TAPSE is normal. ??TAPSE is 2.0 cm. ?Aortic??Valve: No regurgitation. No stenosis. ?Left??Atrium: Left atrium is mildly dilated. ?Pericardium: No pericardial effusion. ?Image quality is adequate. Left Ventricle Normal left ventricular systolic function with a visually estimated EF of 60 - 65%. Left ventricle size is normal. Normal wall thickness. Normal wall motion. Global longitudinal strain is -15.3%. Normal diastolic function. Right Ventricle Right ventricle size is normal. Normal systolic function. TAPSE is normal. TAPSE is 2.0 cm. Left Atrium Left atrium is mildly dilated. Right Atrium Right atrium size is normal. IVC/SVC IVC was not well visualized. IVC diameter is normal or and decreases greater than 50% during inspiration; therefore the estimated right atrial pressure is normal (~3 mmHg). IVC size is normal. Mitral Valve Valve structure is normal. No regurgitation. No stenosis noted. Tricuspid Valve Valve structure is normal. No regurgitation. No stenosis noted. Aortic Valve Trileaflet valve. No regurgitation. No stenosis. Pulmonic Valve The pulmonic valve visualization is suboptimal but appears to be functioning normally. Physiologically normal regurgitation. No stenosis noted. Ascending Aorta Normal sized aortic root and ascending aorta. Pericardium No pericardial effusion. Septum No interatrial shunt visualized with color Doppler. Study Details Image quality: adequate. Additional technique includes myocardial strain. Color flow Doppler was performed and pulse wave and/or continuous wave Doppler was performed. No contrast was given. Authorizing ProviderResult TypeResult StatusSyed Diego Harper [facility] ECHO ORDERABLESFinal Result * (ABNORMAL) CBC (03/27/2025 11:26 AM EDT)ComponentValueRef RangeTest Method Analysis TimePerformed AtPathologist BbvuqnqylCBO08.0(H)3.5 - 11.3 k/uL 03/27/2025 11:26 AM EDTMERCY LABORATORIESRBC2.54(L)3.95 - 5.11 m/uL03/27/2025 11:26 AM EDTMERCY LABORATORIESHemoglobin9.7(L)11.9 - 15.1 g/dL03/27/2025 11:26 AM EDTMERCY WZFUDPFXSVPGTxjiaaiplv92.9(L)36.3 - 47.1 %03/27/2025 11:26 AM EDT [facility] JOPXQSQGQEXDAJK516.7(H)82.6 - 102.9 fL03/27/2025 11:26 AM EDTMERCY VKSUUBHKNSWNMBP80.2(H)25.2 - 33.5 pg03/27/2025 11:26 AM [facility] MCHC31.428.4 - 34.8 g/dL03/27/2025 11:26 AM EDTMERCY AVLBLFXSRFXWQZP36.711.8 - 14.4 %03/27/2025 11:26 AM EDTMERCY VCIBBHUUYPQVUthuznqfc776629 - 453 k/uL 03/27/2025 11:26 AM EDTMERCY ETUJCDRRBIAAHVX61.18.1 - 13.5 fL03/27/2025 11:26 AM EDTMERCY LABORATORIESNRBC Automated0.00.0 per 100 WBC03/27/2025 11:26 AM EDTMERCY LABORATORIESSpecimen (Source)Anatomical Location / Laterality Collection Method / VolumeCollection TimeReceived TimeBLOOD SPECIMEN / Unknown 03/27/2025 11:26 AM EDT1 12:04 PM EDT Narrative Authorizing ProviderResult TypeResult StatusBayan Zac Ng MDHEMATOLOGY ORDERABLESFinal ResultPerforming OrganizationAddressCity/State/ZIP CodePhone Number [address] [place] [address], [facility] [phone] * US GI ENDOSCOPIC S&I (03/26/2025 11:44 PM EDT)Specimen (Source)Anatomical Location / LateralityCollection Method / VolumeCollection TimeReceived Time Narrative [facility] - 03/26/2025 11:44 PM EDT Radiology exam is complete. No Radiologist dictation. Please follow up with ordering provider. Authorizing ProviderResult TypeResult StatusSyed Diego Harper MDIMG US ORDERABLESFinal ResultPerforming OrganizationAddressCity/State/ZIP CodePhone Number [facility] * FLUORO FOR SURGICAL PROCEDURES (03/26/2025 6:17 PM EDT)Specimen (Source) Anatomical Location / LateralityCollection Method / VolumeCollection Time Received Time Narrative [facility] - 03/26/2025 6:17 PM EDT Radiology exam is complete. No Radiologist dictation. Please follow up with ordering provider. 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 ??STOMACH, BIOPSY: - MILD CHRONIC INACTIVE GASTRITIS - NO MORPHOLOGIC EVIDENCE OF HELICOBACTER PYLORI ORGANISMS B. ??DUODENUM, SECOND PART, BIOPSY: - DUODENAL MUCOSA WITH QUESTIONABLE ADENOMATOUS FEATURES - SEE COMMENT -- Diagnosis Comment -- In part B, the biopsy demonstrates features suggestive, but not diagnostic of adenomatous change (tubular adenoma). ??Additional recuts through the paraffin block fail to resolve this question. ??This case will be forwarded in consultation to the [facility] for an expert second opinion. ??Their findings will be forthcoming in a supplemental report. Tye Dodson D.O. Electronically Signed Out ? sophia/03/28/2025 Clinical Information Pre-op diagnosis: ??COMMON BILE DUCT STRUCTURE (HCC) ?? Operative Findings: STOMACH BX; ABNORMAL MUSCOSA PART OF THE DUODENUM BX Operative Performed: ??ENDOSCOPIC RETROGRADE CHOLANGIOPANCREATOGRAPHY; ENDOSCOPIC ULTRASOUND, PATHOLOGY; ESOPHAGOGASTRODUODENOSCOPY BIOPSY ko Source of Specimen A: STOMACH BIOPSY B: ABNORMAL MUCOSA SECOND PART OF THE DUODENUM BX Gross Description A. ?? ENEIDA MEJIA, STOMACH BX Received in formalin are three mcintosh fragments from 0.2 to 0.5 cm and are 1.1 x 0.2 x 0.2 cm in aggregate. Entirely 1cs. ?? B. ?? ENEIDA MEJIA, ABNORMAL MUCOSA PART OF THE DUODENUM BX Received in formalin is one maher fragment, 0.3 x 0.3 x 0.2 cm. ??Entirely 1cs. jsaurav Sykes M.D./ko:03/27/2025 Microscopic Description A, B. Microscopic examination performed. ?? Processing Lab: ??[address] [address] Interpretation Performed at [address] [address] SURGICAL PATHOLOGY CONSULTATION Patient Name: ENEIDA MEJIA [facility] Rec: [id number] [facility] ??LABORATORIES [facility] ANATOMIC PATHOLOGY [address] [place] [address]. ??[place], [place] [address] bon [facility] [employer] LABSSpecimen (Source)Anatomical Location / LateralityCollection Method / VolumeCollection TimeReceived Time 03/26/2025 9:22 AM EDT1 Narrative Authorizing ProviderResult TypeResult StatusSyed Diego Harper MD PATHOLOGY/CYTOLOGY ORDERABLESFinal ResultPerforming OrganizationAddress City/State/ZIP CodePhone Number [facility]ITALDeviceAuthority [address] [phone] [facility] [employer] LABS * (ABNORMAL) Comprehensive Metabolic Panel w/ Reflex to MG (03/26/2025 6:46 AM EDT)ComponentValueRef RangeTest MethodAnalysis TimePerformed AtPathologist DretclcmiQkdtqz121(L)136 - 145 mmol/L1 6:46 AM EDTM[facility]CY [facility] Potassium3.6(L)3.7 - 5.3 mmol/L1 6:46 AM EDTM[facility] Kkdowoct05901 - 107 mmol/L1 6:46 AM EDTMERCY LQHFZLNIEQKVWN02350 - 31 mmol/L1 6:46 AM EDTMERCY LABORATORIESAnion Gap7(L)9 - 16 mmol/L 03/26/2025 6:46 AM EDTMERCY QAFKLOENUWQJDrsjxpp6362 - 99 mg/dL03/26/2025 6:46 AM EDTMERCY LABORATORIESBUN<2(L)6 - 20 mg/dL03/26/2025 6:46 AM EDTMERCY LABORATORIESCreatinine0.3(L)0.6 - 0.9 mg/dL03/26/2025 6:46 AM EDTMERCY LABORATORIESComment:Specimen icterus has exceeded the interference as defined by Francesco. Result may be affected.Est, Glom Filt Rate>90>60 mL/min/1.73m2 03/26/2025 6:46 AM EDTMERCY LABORATORIESComment: ? These results are not intended for use in patients <18 years of age. ? eGFR results are calculated without a race factor using the 2020 CKD-EPI equation. Careful clinical correlation is recommended, particularly when comparing to results calculated using previous equations. The CKD-EPI equation is less accurate in patients with extremes of muscle mass, extra-renal metabolism of creatine, excessive creatine ingestion, or following therapy that affects renal tubular secretion. Calcium7.1(L)8.6 - 10.4 mg/dL03/26/2025 6:46 AM EDTMERCY LABORATORIESTotal Protein5.2(L)6.6 - 8.7 g/dL03/26/2025 6:46 AM EDTMERCY LABORATORIESAlbumin2.5(L) 3.5 - 5.2 g/dL03/26/2025 6:46 AM EDTMERCY LABORATORIESAlbumin/Globulin Ratio0.9 (L)1.0 - 2. 6:46 AM EDTMERCY LABORATORIESTotal Bilirubin5.0(H)0.0 - 1.2 mg/dL03/26/2025 6:46 AM EDTMERCY LABORATORIESAlkaline Auqoivbhlfv094(H)35 - 104 U/L1 6:46 AM EDTMERCY GTGQMZOTLGMXSFK62(H)10 - 35 U/L1 6:46 AM EDTMERCY NJHDRCPWKOJHBXJ20(H)10 - 35 U/L1 6:46 AM EDTMERCY LABORATORIESSpecimen (Source)Anatomical Location / LateralityCollection Method / VolumeCollection TimeReceived TimeBloodBLOOD SPECIMEN / Drbvvfd6603/26/2025 6:46 AM EDT1 7:20 AM EDT Narrative Authorizing ProviderResult TypeResult StatusHossein [facility] MDCHEMISTRY ORDERABLESFinal ResultPerforming OrganizationAddressCity/State/ZIP CodePhone Number [facility] [address] [phone] * (ABNORMAL) CBC with Auto Differential (03/26/2025 6:46 AM EDT)ComponentValue Ref RangeTest MethodAnalysis TimePerformed AtPathologist TobcfatpjTSD38.13.5 - 11.3 k/uL03/26/2025 6:46 AM EDTMERCY LABORATORIESRBC2.20(L)3.95 - 5.11 m/uL 03/26/2025 6:46 AM EDTMERCY LABORATORIESHemoglobin8.4(L)11.9 - 15.1 g/dL 03/26/2025 6:46 AM EDTMERCY LWTZMPUPHKKLRktyfhdtrf92.4(L)36.3 - 47.1 % 03/26/2025 6:46 AM EDTMERCY DFVVEVVQCDVJHEQ983.0(H)82.6 - 102.9 fL03/26/2025 6:46 AM EDTMERCY AUTQWLTGWVIMVBG26.2(H)25.2 - 33.5 pg03/26/2025 6:46 AM EDT [place] YBDQAZSTSTRMKWYA46.828.4 - 34.8 g/dL03/26/2025 6:46 AM EDTMERCY WSPKGDZKOCFXWXJ56.011.8 - 14.4 %03/26/2025 6:46 AM [facility] Kgjrrfwub596602 - 453 k/uL03/26/2025 6:46 AM EDTMERCY WTPYPZOOPLINLFQ31.88.1 - 13.5 fL03/26/2025 6:46 AM EDTMERCY LABORATORIESNRBC Automated0.00.0 per 100 WBC03/26/2025 6:46 AM EDTMERCY LABORATORIESRBC MorphologyMACROCYTOSIS PRESENT 03/26/2025 6:46 AM EDTMERCY LABORATORIESImmature Granulocytes %1(H)0 % 03/26/2025 6:46 AM EDTMERCY LABORATORIESNeutrophils %83(H)36 - 65 %03/26/2025 6:46 AM EDTMERCY LABORATORIESLymphocytes %7(L)24 - 43 %03/26/2025 6:46 AM EDT [facility]IESMonocytes %73 - 12 %03/26/2025 6:46 AM EDTM[facility] Eosinophils %11 - 4 %03/26/2025 6:46 AM EDTMERCY LABORATORIESBasophils %10 - 2 %03/26/2025 6:46 AM EDTMERCY LABORATORIESImmature Granulocytes Absolute0.10 0.00 - 0.30 k/uL03/26/2025 6:46 AM EDTMERCY LABORATORIESNeutrophils Absolute 8.38(H)1.50 - 8.10 k/uL03/26/2025 6:46 AM EDTMERCY LABORATORIESLymphocytes Absolute0.71(L)1.10 - 3.70 k/uL03/26/2025 6:46 AM EDTM[facility] Monocytes Absolute0.710.10 - 1.20 k/uL03/26/2025 6:46 AM [facility] Eosinophils Absolute0.100.00 - 0.44 k/uL03/26/2025 6:46 AM EDTMERCY LABORATORIESBasophils Absolute0.100.00 - 0.20 k/uL03/26/2025 6:46 AM EDTMERCY LABORATORIESMorphologyMACROCYTOSIS ANJJNVI0103/26/2025 6:46 AM EDTMERCY LABORATORIESSpecimen (Source)Anatomical Location / LateralityCollection Method / VolumeCollection TimeReceived TimeBloodBLOOD SPECIMEN / Mdssbpr6003/26/2025 6:46 AM EDT1 7:20 AM EDT Narrative Authorizing ProviderResult TypeResult StatusHosshany Andujar MDHEMATOLOGY ORDERABLESFinal ResultPerforming OrganizationAddressCity/State/[place] [address], [facility] [phone] * SURGICAL PATHOLOGY REPORT (03/26/2025 12:00 AM EDT)ComponentValueRef RangeTest MethodAnalysis TimePerformed AtPathologist SignatureSurgical Pathology Report Path Number: [id number] INTERPRETATION LYMPH NODE, VERNON HEPATIS, FINE NEEDLE ASPIRATION: - BENIGN LYMPHOID TISSUE - NEGATIVE FOR MALIGNANCY ? Electronically Signed Out ? Omar Blanco/03/28/2025 Source of Specimen: A: VERNON HEPATIS LN FINE NEEDLE ASPIRATION Clinical History Common bile duct stricture K83.1. Gross Description VERNON HEPATIS LYMPH NODE FNB Specimen received in CytoLyt solution, light red fluid with flecks. MICROSCOPIC DESCRIPTION Microscopic examination performed. ? Non Senior Enlisted Advisor Thin Prep x 1, Cell Block w/ H&E x 1 Processing Lab: [address] [address] Interpretation performed at [address] [address] NONGYNECOLOGICAL CYTOPATHOLOGY CONSULTATION Patient Name: ENEIDA MEJIA [facility] Rec: [id number] [facility] ??LABORATORIES [facility] ANATOMIC PATHOLOGY [address] [place] [address]. ??[place], [place] [address] [facility] [employer] LABSSpecimen (Source)Anatomical Location / LateralityCollection Method / VolumeCollection TimeReceived Time 9:56 AM EDT Narrative Authorizing ProviderResult TypeResult StatusSyed Diego Harper MD PATHOLOGY/CYTOLOGY ORDERABLESFinal ResultPerforming OrganizationAddress City/State/ZIP CodePhone Number [address] [phone] [facility] [employer] LABS * (ABNORMAL) Comprehensive Metabolic Panel (03/26/2025 12:00 AM EDT)Component ValueRef RangeTest MethodAnalysis TimePerformed AtPathologist SignatureSodium 127(L)136 - 145 mmol/L1 12:00 AM EDTMERCY LABORATORIESPotassium3.5(L) 3.7 - 5.3 mmol/L1 12:00 AM EDTMERCY HYOOTYDRKVIVRpssstmo3181 - 107 mmol/L1 12:00 AM EDTMERCY TUVZKDUOJCJHHU40660 - 31 mmol/L1 12:00 AM EDTMERCY LABORATORIESAnion Gap6(L)9 - 16 mmol/L1 12:00 AM EDTMERCY IVVHTIBTVWZQZqcyiwl522(H)74 - 99 mg/dL03/26/2025 12:00 AM EDTMERCY LABORATORIESBUN<2(L)6 - 20 mg/dL03/26/2025 12:00 AM EDTM[facility] Creatinine0.3(L)0.6 - 0.9 mg/dL03/26/2025 12:00 AM EDTM[facility] Comment:Specimen icterus has exceeded the interference as defined by Francesco. Result may be affected.Est, Glom Filt Rate>90>60 mL/min/1.51t50803/26/2025 12:00 AM EDTMERCY LABORATORIESComment: ? These results are not intended for use in patients <18 years of age. ? eGFR results are calculated without a race factor using the 2020 CKD-EPI equation. Careful clinical correlation is recommended, particularly when comparing to results calculated using previous equations. The CKD-EPI equation is less accurate in patients with extremes of muscle mass, extra-renal metabolism of creatine, excessive creatine ingestion, or following therapy that affects renal tubular secretion. Calcium7.0(L)8.6 - 10.4 mg/dL03/26/2025 12:00 AM EDTMERCY LABORATORIESTotal Protein5.8(L)6.6 - 8.7 g/dL03/26/2025 12:00 AM EDTMERCY LABORATORIESAlbumin2.7 (L)3.5 - 5.2 g/dL03/26/2025 12:00 AM EDTMERCY LABORATORIESAlbumin/Globulin Ratio 0.9(L)1.0 - 2. 12:00 AM EDTMERCY LABORATORIESTotal Bilirubin5.8(H)0.0 - 1.2 mg/dL03/26/2025 12:00 AM EDTMERCY LABORATORIESAlkaline Iwtqmyyjprd526(H) 35 - 104 U/L1 12:00 AM EDTMERCY BVGAOVWOUJZSLJI08(H)10 - 35 U/L 03/26/2025 12:00 AM EDTMERCY TDJRSUWAHKFDRDC36(H)10 - 35 U/L1 12:00 AM EDTMERCY LABORATORIESSpecimen (Source)Anatomical Location / LateralityCollection Method / VolumeCollection TimeReceived TimeBloodBLOOD SPECIMEN / Unknown 12:05 AM EDT Narrative Authorizing ProviderResult TypeResult StatusDilnoor Chloe MDCHEMISTRY ORDERABLES Final ResultPerforming OrganizationAddressCity/State/ZIP CodePhone Number [phone] [place] [address], [facility] [phone] * (ABNORMAL) Basic Metabolic Panel w/ Reflex to MG (03/25/2025 8:16 PM EDT) ComponentValueRef RangeTest MethodAnalysis TimePerformed AtPathologist YmwontdcvFvzcja308(L)136 - 145 mmol/L1 8:16 PM EDTMERCY LABORATORIES Potassium3.6(L)3.7 - 5.3 mmol/L1 8:16 PM EDTMERCY LABORATORIES Tzmpgugi6563 - 107 mmol/L1 8:16 PM EDTMERCY WAROTKMFZYOWIO050(L)20 - 31 mmol/L1 8:16 PM EDTMERCY LABORATORIESAnion Reo634 - 16 mmol/L 03/25/2025 8:16 PM EDTMERCY KCYEFCWAGBBYJynzmrq649(H)74 - 99 mg/dL03/25/2025 8:16 PM EDTMERCY LABORATORIESBUN<2(L)6 - 20 mg/dL03/25/2025 8:16 PM EDTMERCY LABORATORIESCreatinine0.3(L)0.6 - 0.9 mg/dL03/25/2025 8:16 PM EDTMERCY LABORATORIESComment:Specimen icterus has exceeded the interference as defined by Francesco. Result may be affected.Est, Glom Filt Rate>90>60 mL/min/1.73m2 03/25/2025 8:16 PM EDTMERCY LABORATORIESComment: ? These results are not intended for use in patients <18 years of age. ? eGFR results are calculated without a race factor using the 2020 CKD-EPI equation. Careful clinical correlation is recommended, particularly when comparing to results calculated using previous equations. The CKD-EPI equation is less accurate in patients with extremes of muscle mass, extra-renal metabolism of creatine, excessive creatine ingestion, or following therapy that affects renal tubular secretion. Calcium6.9(L)8.6 - 10.4 mg/dL03/25/2025 8:16 PM EDTMERCY LABORATORIESSpecimen (Source)Anatomical Location / LateralityCollection Method / VolumeCollection TimeReceived Time03/25/2025 8:16 PM EDT1 8:26 PM EDT Narrative Authorizing ProviderResult TypeResult StatusDilnoor Chloe MDCHEMISTRY ORDERABLES Final ResultPerforming OrganizationAddressCity/State/ZIP CodePhone Number [facility]ITALOpenClov[facility] [address] [place] [address], [facility] [phone] * PREVIOUS SPECIMEN (03/25/2025 3:59 PM EDT)Specimen (Source)Anatomical Location / LateralityCollection Method / VolumeCollection TimeReceived Time03/25/2025 3:59 PM EDT1 4:09 PM EDT Narrative Authorizing ProviderResult TypeResult StatusDilnoor Chloe MDCHEMISTRY ORDERABLES Final ResultPerforming OrganizationAddressty/State/ZIP CodePhone Number [facility] [address] [phone] * (ABNORMAL) Vitamin B12 & Folate (03/25/2025 3:59 PM EDT)ComponentValueRef RangeTest MethodAnalysis TimePerformed AtPathologist SignatureVitamin B-12 >2000(H)232 - 1245 pg/mL03/25/2025 3:59 PM EDTMERCY LLLKXZOWQNCPMognlx99.5(H) 4.8 - 24.2 ng/mL03/25/2025 3:59 PM EDTMERCY LABORATORIESSpecimen (Source) Anatomical Location / LateralityCollection Method / VolumeCollection Time Received Time03/25/2025 3:59 PM EDT1 4:09 PM EDT Narrative Authorizing ProviderResult TypeResult StatusDilnoor Chloe MDCHEMISTRY ORDERABLES Final ResultPerforming OrganizationAddressty/State/ZIP CodePhone Number Sendori [address] [place] [address] * US ORGAN ELASTOGRAPHY (03/25/2025 12:16 PM EDT)Anatomical RegionLaterality ModalityAbdomenUltrasoundSpecimen (Source)Anatomical Location / Laterality Collection Method / VolumeCollection TimeReceived Time03/25/2025 2:34 PM EDT Impressions 03/25/2025 2:36 PM EDT 1. Limited visualization of the liver to evaluate stiffness as below. The visualized liver demonstrates increased echogenicity corresponding with severe steatosis seen on MRI. ??Coarsened liver echotexture suggests a degree of underlying fibrotic change with no obvious findings of cirrhosis, although evaluation is limited by lack of routine right upper quadrant sonographic images. 2. Liver stiffness of 13.47 kPa, correlating with a Metavir score of F4 (cirrhosis, >11.9 kPa). Narrative 03/25/2025 2:36 PM EDT EXAMINATION: LIVER ELASTOGRAPHY ULTRASOUND 03/25/2025 12:00 pm TECHNIQUE: Liver stiffness measurements were obtained on a [employer] LOGIQ E9 unit with a C1-6-D transducer. ??12 valid measurements were obtained using a 2D shear wave elastography method. COMPARISON: Abdomen MRI 03/24/2025 HISTORY: ORDERING SYSTEM PROVIDED HISTORY: liver TECHNOLOGIST PROVIDED HISTORY: liver FINDINGS: LIVER: ??Visualized portions with increased echogenicity, coarsened echotexture, and no obvious surface nodularity. ??No included focal lesions. Median stiffness: ??13.47 kPa IQR:median ratio (IQR/M, results unreliable if >0.30): 0.17 BILIARY SYSTEM: ??No included intrahepatic biliary dilation. OTHER: ??No included free intraperitoneal fluid. Procedure Note Luigi Agosto MD - 03/25/2025 EXAMINATION: LIVER ELASTOGRAPHY ULTRASOUND 03/25/2025 12:00 pm TECHNIQUE: Liver stiffness measurements were obtained on a [employer] E9unit with a C1-6-D transducer. 12 valid measurements were obtained using a2D shear wave elastography method. COMPARISON: Abdomen MRI 03/24/2025 HISTORY: ORDERING SYSTEM PROVIDED HISTORY: liver TECHNOLOGIST PROVIDED HISTORY: liver FINDINGS: LIVER: Visualized portions with increased echogenicity, coarsened echotexture, and no obvious surface nodularity. No included focallesions. Median stiffness: 13.47 kPa IQR:median ratio (IQR/M, results unreliable if >0.30): 0.17 BILIARY SYSTEM: No included intrahepatic biliary dilation. OTHER: No included free intraperitoneal fluid. IMPRESSION: 1. Limited visualization of the liver to evaluate stiffness as below.The visualized liver demonstrates increased echogenicity corresponding with severe steatosis seen on MRI. Coarsened liver echotexture suggests adegree of underlying fibrotic change with no obvious findings of cirrhosis,although evaluation is limited by lack of routine right upper quadrantsonographic images. 2. Liver stiffness of 13.47 kPa, correlating with a Metavir score of F4 (cirrhosis, >11.9 kPa). Authorizing ProviderResult TypeResult StatusHoisma WORKMAN US ORDERABLES Final Result * (ABNORMAL) Ferritin (03/25/2025 6:51 AM EDT)ComponentValueRef RangeTest Method Analysis TimePerformed AtPathologist CllhzprptGipudptc554(H)15 - 150 ng/mL 03/25/2025 6:51 AM EDTMERCY LABORATORIESComment: ? FERRITIN Reference Ranges: Adult Males ?? 20 - 60 years: ?30 - 400 ng/mL Adult females 17 - 60 years: ?13 - 150 ng/mL Adults greater than 60 years: ?? no established reference range Pediatrics: ??no established reference range Specimen (Source)Anatomical Location / LateralityCollection Method / Volume Collection TimeReceived Time03/25/2025 6:51 AM EDT1 8:25 AM EDT Narrative Authorizing ProviderResult TypeResult StatusDilnoor Chloe MDCHEMISTRY ORDERABLES Final ResultPerforming OrganizationAddressty/[facility] Code[place] [address], [facility] [phone] * (ABNORMAL) Iron and TIBC (03/25/2025 6:51 AM EDT)ComponentValueRef RangeTest MethodAnalysis TimePerformed AtPathologist YeoaycqfcJcgv4857 - 145 ug/dL 03/25/2025 6:51 AM EDTMERCY GTTTGHPZRXOYVRYG739(L)250 - 450 ug/dL03/25/2025 6:51 AM EDTMERCY LABORATORIESIron % Vulnqpjgka1752 - 55 %03/25/2025 6:51 AM EDTMERCY THNAILLZEQIZFXKZ31(L)112 - 347 ug/dL03/25/2025 6:51 AM EDTMERCY LABORATORIESSpecimen (Source)Anatomical Location / LateralityCollection Method / VolumeCollection TimeReceived Time03/25/2025 6:51 AM EDT1 8:25 AM EDT Narrative Authorizing ProviderResult TypeResult StatusDilnoor Chloe MDCHEMISTRY ORDERABLES Final ResultPerforming OrganizationAddAllegheny [facility] CodePhone Number Sendori [address] [place] [address], [facility] [phone] * (ABNORMAL) Magnesium (03/25/2025 6:51 AM EDT)ComponentValueRef RangeTest MethodAnalysis TimePerformed AtPathologist SignatureMagnesium1.5(L)1.6 - 2.6 mg/dL03/25/2025 6:51 AM EDTMERCY LABORATORIESSpecimen (Source)Anatomical Location / LateralityCollection Method / VolumeCollection TimeReceived Time 03/25/2025 6:51 AM EDT1 8:25 AM EDT Narrative Authorizing ProviderResult TypeResult StatusDilnoor Chloe MDCHEMISTRY ORDERABLES Final ResultPerforming OrganizationAddressCity/State/ZIP CodePhone Number Sendori [address] [place] [address], [facility] [phone] * (ABNORMAL) Comprehensive Metabolic Panel w/ Reflex to MG (03/25/2025 6:51 AM EDT)ComponentValueRef RangeTest MethodAnalysis TimePerformed AtPathologist PhiackkhiGwkwji278(L)136 - 145 mmol/L1 6:51 AM EDTMERCY LABORATORIES Potassium2.9(LL)3.7 - 5.3 mmol/L1 6:51 AM EDTMERCY LABORATORIES Jknkjxgl69341 - 107 mmol/L1 6:51 AM EDTMERCY DFOOPTUJDDWQTR11671 - 31 mmol/L1 6:51 AM EDTMERCY LABORATORIESAnion Wim589 - 16 mmol/L 03/25/2025 6:51 AM EDTMERCY VCVJQYEVTFURHfvjibv99(L)74 - 99 mg/dL03/25/2025 6:51 AM EDTMERCY LABORATORIESBUN<2(L)6 - 20 mg/dL03/25/2025 6:51 AM EDTMERCY LABORATORIESCreatinine0.3(L)0.6 - 0.9 mg/dL03/25/2025 6:51 AM EDTMERCY LABORATORIESComment:Specimen icterus has exceeded the interference as defined by Francesco. Result may be affected.Est, Glom Filt Rate>90>60 mL/min/1.73m2 03/25/2025 6:51 AM EDTMERCY LABORATORIESComment: ? These results are not intended for use in patients <18 years of age. ? eGFR results are calculated without a race factor using the 2020 CKD-EPI equation. Careful clinical correlation is recommended, particularly when comparing to results calculated using previous equations. The CKD-EPI equation is less accurate in patients with extremes of muscle mass, extra-renal metabolism of creatine, excessive creatine ingestion, or following therapy that affects renal tubular secretion. Calcium6.7(L)8.6 - 10.4 mg/dL03/25/2025 6:51 AM EDTMERCY LABORATORIESTotal Protein5.0(L)6.6 - 8.7 g/dL03/25/2025 6:51 AM EDTMERCY LABORATORIESAlbumin2.4(L) 3.5 - 5.2 g/dL03/25/2025 6:51 AM EDTMERCY LABORATORIESAlbumin/Globulin Ratio0.9 (L)1.0 - 2. 6:51 AM EDTMERCY LABORATORIESTotal Bilirubin5.3(H)0.0 - 1.2 mg/dL03/25/2025 6:51 AM EDTMERCY LABORATORIESAlkaline Kmthrlutvac369(H)35 - 104 U/L1 6:51 AM EDTMERCY YVLFXKQERHFOZOQ69(H)10 - 35 U/L1 6:51 AM EDTMERCY EQJJJBLULPMWRTA82(H)10 - 35 U/L1 6:51 AM EDTMERCY LABORATORIESSpecimen (Source)Anatomical Location / LateralityCollection Method / VolumeCollection TimeReceived TimeBloodBLOOD SPECIMEN / Iaxyadk7403/25/2025 6:51 AM EDT1 8:25 AM EDT Narrative Authorizing ProviderResult TypeResult StatusHossNoxubee General Hospital MDCHEMISTRY ORDERABLESFinal ResultPerforming OrganizationAddressCity/State/ZIP CodePhone Number [place] [phone] [place] [address], [facility] [phone] * (ABNORMAL) CBC with Auto Differential (03/25/2025 6:51 AM EDT)ComponentValue Ref RangeTest MethodAnalysis TimePerformed AtPathologist GewxqtbzaFNW45.8(H) 3.5 - 11.3 k/uL03/25/2025 6:51 AM EDTMERCY LABORATORIESRBC2.14(L)3.95 - 5.11 m/uL03/25/2025 6:51 AM EDTMERCY LABORATORIESHemoglobin8.1(L)11.9 - 15.1 g/dL 03/25/2025 6:51 AM EDTMERCY JXSNNOAHZDGXAnwoxokwfq15.5(L)36.3 - 47.1 % 03/25/2025 6:51 AM EDTMERCY RGRUEFSMIBKHWHA686.2(H)82.6 - 102.9 fL03/25/2025 6:51 AM EDTMERCY DAUKCZAZROHGBBD88.9(H)25.2 - 33.5 pg03/25/2025 6:51 AM EDT [place] KJIBKGKSKDJCPKSB61.828.4 - 34.8 g/dL03/25/2025 6:51 AM EDTMERCY NYMCUHNCOLDLTXG32.211.8 - 14.4 %03/25/2025 6:51 AM EDTMERCY LABORATORIES Tlkeyjioe293932 - 453 k/uL03/25/2025 6:51 AM EDTMERCY ILKJVWPTBOFPAAR17.38.1 - 13.5 fL03/25/2025 6:51 AM EDTMERCY LABORATORIESNRBC Automated0.00.0 per 100 WBC03/25/2025 6:51 AM EDTMERCY LABORATORIESImmature Granulocytes %1(H)0 % 03/25/2025 6:51 AM EDTMERCY LABORATORIESNeutrophils %85(H)36 - 65 %03/25/2025 6:51 AM EDTMERCY LABORATORIESLymphocytes %6(L)24 - 43 %03/25/2025 6:51 AM EDT [facility]IESMonocytes %63 - 12 %03/25/2025 6:51 AM EDTMERCY LABORATORIES Eosinophils %11 - 4 %03/25/2025 6:51 AM EDTMERCY LABORATORIESBasophils %10 - 2 %03/25/2025 6:51 AM EDTMERCY LABORATORIESImmature Granulocytes Absolute0.12 0.00 - 0.30 k/uL03/25/2025 6:51 AM EDTMERCY LABORATORIESNeutrophils Absolute 10.02(H)1.50 - 8.10 k/uL03/25/2025 6:51 AM EDTMERCY LABORATORIESLymphocytes Absolute0.71(L)1.10 - 3.70 k/uL03/25/2025 6:51 AM EDTMERCY LABORATORIES Monocytes Absolute0.710.10 - 1.20 k/uL03/25/2025 6:51 AM EDTMERCY LABORATORIES Eosinophils Absolute0.120.00 - 0.44 k/uL03/25/2025 6:51 AM EDTMERCY LABORATORIESBasophils Absolute0.120.00 - 0.20 k/uL03/25/2025 6:51 AM EDTMERCY LABORATORIESMorphologyMACROCYTOSIS KRCWRIW2703/25/2025 6:51 AM EDTMERCY LABORATORIESSpecimen (Source)Anatomical Location / LateralityCollection Method / VolumeCollection TimeReceived TimeBloodBLOOD SPECIMEN / Jkbwjjs2103/25/2025 6:51 AM EDT1 8:25 AM EDT Narrative Authorizing ProviderResult TypeResult StatusHosshany Andujar MDHEMATOLOGY ORDERABLESFinal ResultPerforming OrganizationAddressCity/State/ZIP CodePhone Number [place] [address] [phone] * SURGICAL PATHOLOGY REPORT (03/25/2025 12:00 AM EDT)ComponentValueRef RangeTest MethodAnalysis TimePerformed AtPathologist SignatureSurgical Pathology Report Path Number: [id number] -- Diagnosis -- A. ??Stomach, biopsy: - Gastric antral mucosa with mild chronic inactive gastritis. - Negative for H. pylori organisms on H&E stain. B. ??Ascending colon, biopsy: - Tubular adenoma. C. ??Sigmoid colon, biopsy: - Hyperplastic polyp. ??See comment. - Separate piece of benign polypoid colonic mucosa, negative for dysplasia. -- Diagnosis Comment -- C. ??There is a separate piece of gastric mucosa that has mild chronic inflammation that could represent gastric heterotopia or possible contaminant. ??Clinical correlation recommended. Raffi Brewster M.D. Electronically Signed Out ? lanette/03/26/2025 Clinical Information Pre-Op Diagnosis: ??ANEMIA, UNSPECIFIED TYPE Operative Findings: ??STOMACH BX; COLON- ASCENDING POLYPECTOMY; SIGMOID COLON POLYPS BX Operation Performed: ??ESOPHAGOGASTRODUODENOSCOPY BIOPSY; COLONOSCOPY POLYPECTOMY SNARE/BIOPSY; COLONOSCOPY BIOPSY se Source of Specimen A: STOMACH BIOPSY B: COLON-ASCENDING POLYPECTOMY C: SIGMOID COLON POLYPS BX Gross Description A. ?? ENEIDA MEJIA STOMACH BX Received in formalin are two mcintosh-white tissue fragments from 0.2 to 0.4 cm and are 0.6 x 0.1 x 0.1 cm in aggregate. ??Entirely 1cs. B. ?? ENEIDA MEJIA COLON ASCENDING POLYPECTOMY Received in formalin is one mcintosh-white tissue fragment, 0.2 x 0.2 x 0.2 cm. ??Entirely 1cs. C. ?? ENEIDA MEJIA SIGMOID COLON POLYPS BX Received in formalin are three mcintosh-white tissue fragments from 0.1 to 0.5 cm and are 0.8 x 0.2 x 0.2 cm in aggregate. ??Entirely 1cs. ??jj deon Lo/se:03/25/2025 Microscopic Description A-C. Microscopic examination performed. Processing Lab: ??[address] [address] Interpretation Performed at [address] [address] SURGICAL PATHOLOGY CONSULTATION Patient Name: ENEIDA MEJIA [facility] Rec: [id number] [facility] ??[facility] ANATOMIC PATHOLOGY [address] [place] [address]. ??[place], [place] [address] [facility] [employer] LABSSpecimen (Source)Anatomical Location / LateralityCollection Method / VolumeCollection TimeReceived Time 10:59 AM EDT Narrative Authorizing ProviderResult TypeResult StatusHossein Hagedith MDPATHOLOGY/CYTOLOGY ORDERABLESFinal ResultPerforming OrganizationAddressCity/State/ZIP CodePhone Number [facility]OSPITALDeviceAuthority [address] [place] [address] [facility] [employer] [facility]S * MRI ABDOMEN W WO CONTRAST MRCP (03/24/2025 9:32 AM EDT)Anatomical Region LateralityModalityAbdomenMagnetic ResonanceSpecimen (Source)Anatomical Location / LateralityCollection Method / VolumeCollection TimeReceived Time 03/24/2025 11:32 AM EDT Impressions 03/24/2025 11:39 AM EDT 1. Nonspecific edema seen at the vernon hepatis/extrahepatic common bile duct and pancreatic body raised the possibility pancreatitis versus CBD stricture. No definite evidence of choledocholithiasis or intrahepatic bile dilatation. 2. Nonspecific gallbladder wall thickening with cholelithiasis, raising the possibility of cholecystitis. Narrative 03/24/2025 11:39 AM EDT EXAM: MRCP WITHOUT AND WITH IV CONTRAST 03/24/2025 09:32:00 AM TECHNIQUE: Multisequence, multiplanar magnetic resonance images of the abdomen without and with intravenous contrast. MRCP sequences were performed. COMPARISON: None available. CLINICAL HISTORY: Painful jaundice. Acute cholecystitis. FINDINGS: LIVER: Severe loss of signal intensity seen on ttx-ij-slpzy imaging consistent with severe hepatic steatosis. Mild hepatomegaly measuring 23 cm in craniocaudal dimension. GALLBLADDER AND BILIARY SYSTEM: Cholelithiasis and biliary sludge with nonspecific wall thickening. There is nonspecific edema seenat the vernon hepatis with inflammation seen near the expected location of the extrahepatic common bile duct, as well as fluid tracking into the falciform ligament and near the gallbladder and pancreatic body. There is some edema within the pancreatic body, raising the possibility of pancreatitis without ductal dilatation or a discrete lesion. No significant intrahepatic biliary dilatation. A portion of the extrahepatic bile duct near the vernon hepatis is not visualized, with the more distal aspect ofthe common bile duct at the level of the pancreatic head being normal. SPLEEN: Unremarkable. PANCREAS/PANCREATIC DUCT: There is some edema within the pancreatic body, raising the possibility of pancreatitis without ductal dilatation or a discrete lesion. No pancreatic ductal dilatation. ADRENAL GLANDS: Unremarkable. KIDNEYS: Unremarkable. LYMPH NODES: There are a few reactive, nonenlarged retroperitoneal lymph nodes. VASCULATURE: Unremarkable. PERITONEUM: Fluid tracking into the falciform ligament and near the gallbladder and pancreatic body. No ascites. ABDOMINAL WALL: No hernia. No mass. BOWEL: Grossly unremarkable. No bowel obstruction. BONES: No acute abnormality or worrisome osseous lesion. SOFT TISSUES: Unremarkable. MISCELLANEOUS: Trace bilateral pleural effusions, right greater than left. Procedure Note Arthur Colón MD - 03/24/2025 EXAM: MRCP WITHOUT AND WITH IV CONTRAST 03/24/2025 09:32:00 AM TECHNIQUE: Multisequence, multiplanar magnetic resonance images of the abdomenwithout and with intravenous contrast. MRCP sequences were performed. COMPARISON: None available. CLINICAL HISTORY: Painful jaundice. Acute cholecystitis. FINDINGS: LIVER: Severe loss of signal intensity seen on eiv-ay-rixuw imaging consistentwith severe hepatic steatosis. Mild hepatomegaly measuring 23 cm incraniocaudal dimension. GALLBLADDER AND BILIARY SYSTEM: Cholelithiasis and biliary sludge with nonspecific wall thickening. Thereis nonspecific edema seen at the vernon hepatis with inflammation seen nearthe expected location of the extrahepatic common bile duct, as well asfluid tracking into the falciform ligament and near the gallbladder and pancreatic body. There is some edemawithin the pancreatic body, raising the possibility of pancreatitiswithout ductal dilatation or a discrete lesion. No significantintrahepatic biliary dilatation. A portion of the extrahepatic bile duct near the vernon hepatis is not visualized, withthe more distal aspect of the common bile duct at the level of thepancreatic head being normal. SPLEEN: Unremarkable. PANCREAS/PANCREATIC DUCT: There is some edema within the pancreatic body, raising the possibility of pancreatitis without ductal dilatation or a discrete lesion. No pancreaticductal dilatation. ADRENAL GLANDS: Unremarkable. KIDNEYS: Unremarkable. LYMPH NODES: There are a few reactive, nonenlarged retroperitoneal lymph nodes. VASCULATURE: Unremarkable. PERITONEUM: Fluid tracking into the falciform ligament and near the gallbladder and pancreatic body. No ascites. ABDOMINAL WALL: No hernia. No mass. BOWEL: Grossly unremarkable. No bowel obstruction. BONES: No acute abnormality or worrisome osseous lesion. SOFT TISSUES: Unremarkable. MISCELLANEOUS: Trace bilateral pleural effusions, right greater than left. IMPRESSION: 1. Nonspecific edema seen at the vernon hepatis/extrahepatic common bileduct and pancreatic body raised the possibility pancreatitis versus CBDstricture. No definite evidence of choledocholithiasis or intrahepaticbile dilatation. 2. Nonspecific gallbladder wall thickening with cholelithiasis, raisingthe possibility of cholecystitis. Authorizing ProviderResult TypeResult StatusAimee Miester CDA TEACHER - NPIMG MRI ORDERABLESFinal Result * (ABNORMAL) Comprehensive Metabolic Panel w/ Reflex to MG (03/24/2025 6:30 AM EDT)ComponentValueRef RangeTest MethodAnalysis TimePerformed AtPathologist MdupqlyltPyqgge730(L)136 - 145 mmol/L1 6:30 AM EDTMERCY LABORATORIES Potassium3.73.7 - 5.3 mmol/L1 6:30 AM EDTMERCY LABORATORIESChloride 13639 - 107 mmol/L1 6:30 AM EDTMERCY VUETKSBIVXFIQA08301 - 31 mmol/L 03/24/2025 6:30 AM EDTMERCY LABORATORIESAnion Srf467 - 16 mmol/L1 6:30 AM EDTMERCY ZSJNXQNKQLJCGrsxuil1065 - 99 mg/dL03/24/2025 6:30 AM EDTMERCY LABORATORIESBUN2(L)6 - 20 mg/dL03/24/2025 6:30 AM EDTMERCY [facility] Creatinine0.4(L)0.6 - 0.9 mg/dL03/24/2025 6:30 AM EDTMERCY LABOR[facility]IES Comment:Specimen icterus has exceeded the interference as defined by Francesco. Result may be affected.Est, Glom Filt Rate>90>60 mL/min/1.92g88403/24/2025 6:30 AM EDTMERCY LABORATORIESComment: ? These results are not intended for use in patients <18 years of age. ? eGFR results are calculated without a race factor using the 2020 CKD-EPI equation. Careful clinical correlation is recommended, particularly when comparing to results calculated using previous equations. The CKD-EPI equation is less accurate in patients with extremes of muscle mass, extra-renal metabolism of creatine, excessive creatine ingestion, or following therapy that affects renal tubular secretion. Calcium7.5(L)8.6 - 10.4 mg/dL03/24/2025 6:30 AM EDTMERCY LABORATORIESTotal Protein5.7(L)6.6 - 8.7 g/dL03/24/2025 6:30 AM EDTMERCY LABORATORIESAlbumin2.8(L) 3.5 - 5.2 g/dL03/24/2025 6:30 AM EDTMERCY LABORATORIESAlbumin/Globulin Ratio1.0 1.0 - 2.510 6:30 AM EDTMERCY LABORATORIESTotal Bilirubin6.6(H)0.0 - 1.2 mg/dL03/24/2025 6:30 AM EDTMERCY LABORATORIESAlkaline Nknbtpukpot798(H)35 - 104 U/L1 6:30 AM EDTMERCY DHWZDSMXPLRFFGL02(H)10 - 35 U/L1 6:30 AM EDTMERCY QRXLGEBKLMEYURO572(H)10 - 35 U/L1 6:30 AM EDTMERCY LABORATORIESSpecimen (Source)Anatomical Location / LateralityCollection Method / VolumeCollection TimeReceived TimeBloodBLOOD SPECIMEN / Vchynzy7403/24/2025 6:30 AM EDT1 7:03 AM EDT Narrative Authorizing ProviderResult TypeResult StatusHossein [facility] Centerrashmi MDCHEMISTRY ORDERABLESFinal ResultPerforming OrganizationAddressCity/State/[facility] [place] [address], [facility] [phone] * (ABNORMAL) CBC with Auto Differential (03/24/2025 6:30 AM EDT)ComponentValue Ref RangeTest MethodAnalysis TimePerformed AtPathologist TybgffzzkTJE16.5(H) 3.5 - 11.3 k/uL03/24/2025 6:30 AM EDTMERCY LABORATORIESRBC2.35(L)3.95 - 5.11 m/uL03/24/2025 6:30 AM EDTMERCY LABORATORIESHemoglobin8.9(L)11.9 - 15.1 g/dL 03/24/2025 6:30 AM EDTMERCY KJEJSRJEMTJFSmiostaciv61.1(L)36.3 - 47.1 % 03/24/2025 6:30 AM EDTMERCY MMTXRDXUUJMMKQR213.6(H)82.6 - 102.9 fL03/24/2025 6:30 AM EDTMERCY PGIKVJDILPSJYSV82.9(H)25.2 - 33.5 pg03/24/2025 6:30 AM EDT [facility] VALLEJOMCHC31.728.4 - 34.8 g/dL03/24/2025 6:30 AM EDTMERCY HVUKJXSYRTGPBUZ09.6(H)11.8 - 14.4 %03/24/2025 6:30 AM EDTMERCY LABORATORIES Ovrxsgngr645759 - 453 k/uL03/24/2025 6:30 AM EDTMERCY CYJXQPVZWTAFKUP50.88.1 - 13.5 fL03/24/2025 6:30 AM EDTMERCY LABORATORIESNRBC Automated0.00.0 per 100 WBC03/24/2025 6:30 AM EDTMERCY LABORATORIESImmature Granulocytes %2(H)0 % 03/24/2025 6:30 AM EDTMERCY LABORATORIESNeutrophils %87(H)36 - 65 %03/24/2025 6:30 AM EDTMERCY LABORATORIESLymphocytes %6(L)24 - 43 %03/24/2025 6:30 AM EDT [facility]IESMonocytes %43 - 12 %03/24/2025 6:30 AM EDTMERCY [facility]IES Eosinophils %11 - 4 %03/24/2025 6:30 AM EDTMERCY LABORATORIESBasophils %00 - 2 %03/24/2025 6:30 AM EDTMERCY LABORATORIESImmature Granulocytes Absolute0.27 0.00 - 0.30 k/uL03/24/2025 6:30 AM EDTMERCY LABORATORIESNeutrophils Absolute 11.74(H)1.50 - 8.10 k/uL03/24/2025 6:30 AM EDTMERCY LABORATORIESLymphocytes Absolute0.81(L)1.10 - 3.70 k/uL03/24/2025 6:30 AM EDTMERCY LAB[facility]ATORIES Monocytes Absolute0.540.10 - 1.20 k/uL03/24/2025 6:30 AM EDTMERCY LABORATORIES Eosinophils Absolute0.140.00 - 0.44 k/uL03/24/2025 6:30 AM EDTMERCY LABORATORIESBasophils Absolute0.000.00 - 0.20 k/uL03/24/2025 6:30 AM EDTMERCY LABORATORIESMorphologyANISOCYTOSIS JSOBBDC5003/24/2025 6:30 AM EDTMERCY LABORATORIESMorphologyMACROCYTOSIS QDVSYFT2503/24/2025 6:30 AM EDTMERCY LABORATORIESSpecimen (Source)Anatomical Location / LateralityCollection Method / VolumeCollection TimeReceived TimeBloodBLOOD SPECIMEN / Fubepaj4703/24/2025 6:30 AM EDT1 7:03 AM EDT Narrative Authorizing ProviderResult TypeResult StatusDimas Andujar MDHEMATOLOGY ORDERABLESFinal ResultPerforming OrganizationAddThomas Jefferson University Hospitalty/[facility]/ZIP CodePhone Number [address] [phone] * Protime-INR (03/24/2025 6:30 AM EDT)ComponentValueRef RangeTest MethodAnalysis TimePerformed AtPathologist GstxjywtwJzduwgg28.911.7 - 14.9 sec03/24/2025 6:30 AM EDTMERCY LABORATORIESINR1. 6:30 AM EDTMERCY LABORATORIES Comment: ? Therapeutic Range: Moderate Anticoagulant Intensity: INR = 2.0-3.0 High Anticoagulant Intensity: INR = 2.5-3.5 Specimen (Source)Anatomical Location / LateralityCollection Method / Volume Collection TimeReceived TimeBloodBLOOD SPECIMEN / Bcgwyxm5803/24/2025 6:30 AM EDT 03/24/2025 7:03 AM EDT Narrative Authorizing ProviderResult TypeResult StatusBetty Liu APNHEMATOLOGY ORDERABLESFinal ResultPerforming OrganizationAddressty/State/[place] [address], [facility] [phone] * (ABNORMAL) Comprehensive Metabolic Panel (03/24/2025 12:48 AM EDT)Component ValueRef RangeTest MethodAnalysis TimePerformed AtPathologist SignatureSodium 129(L)136 - 145 mmol/L1 12:48 AM EDTMERCY LABORATORIESPotassium3.6(L) 3.7 - 5.3 mmol/L1 12:48 AM EDTMERCY PZMCENEMMGLDVopxqqwo84(L)98 - 107 mmol/L1 12:48 AM EDTMERCY QRRVDGIEGXQMIO06036 - 31 mmol/L1 12:48 AM EDTMERCY LABORATORIESAnion Amo043 - 16 mmol/L1 12:48 AM EDT [facility] YAEOJTFMTUMYWdzvneu6301 - 99 mg/dL03/24/2025 12:48 AM EDTMERCY LABORATORIESBUN3(L)6 - 20 mg/dL03/24/2025 12:48 AM EDTMERCY LABORATORIES Creatinine0.3(L)0.6 - 0.9 mg/dL03/24/2025 12:48 AM EDTMERCY [facility]ORATORIES Comment:Specimen icterus has exceeded the interference as defined by Francesco. Result may be affected.Est, Glom Filt Rate>90>60 mL/min/1.01u64203/24/2025 12:48 AM EDTMERCY LABORATORIESComment: ? These results are not intended for use in patients <18 years of age. ? eGFR results are calculated without a race factor using the 2020 CKD-EPI equation. Careful clinical correlation is recommended, particularly when comparing to results calculated using previous equations. The CKD-EPI equation is less accurate in patients with extremes of muscle mass, extra-renal metabolism of creatine, excessive creatine ingestion, or following therapy that affects renal tubular secretion. Calcium7.3(L)8.6 - 10.4 mg/dL03/24/2025 12:48 AM EDTMERCY LABORATORIESTotal Protein5.3(L)6.6 - 8.7 g/dL03/24/2025 12:48 AM EDTMERCY LABORATORIESAlbumin2.5 (L)3.5 - 5.2 g/dL03/24/2025 12:48 AM EDTMERCY LABORATORIESAlbumin/Globulin Ratio 0.9(L)1.0 - 2. 12:48 AM EDTMERCY LABORATORIESTotal Bilirubin6.4(H)0.0 - 1.2 mg/dL03/24/2025 12:48 AM EDTMERCY LABORATORIESAlkaline Urgjupsabbx642(H) 35 - 104 U/L1 12:48 AM EDTMERCY UOYSZOEFGMLSAMG75(H)10 - 35 U/L 03/24/2025 12:48 AM EDTMERCY ZTUXLGQAIJVTFPE166(H)10 - 35 U/L1 12:48 AM EDTMERCY LABORATORIESSpecimen (Source)Anatomical Location / Laterality Collection Method / VolumeCollection TimeReceived TimeBloodBLOOD SPECIMEN / Xzuqugy9703/24/2025 12:48 AM EDT1 1:01 AM EDT Narrative Authorizing ProviderResult TypeResult StatusDilnoor Chloe MDCHEMISTRY ORDERABLES Final ResultPerforming OrganizationAddressty/State/[place] [address], [facility] [phone] * C DIFF TOXIN/ANTIGEN (03/23/2025 6:24 PM EDT)ComponentValueRef RangeTest MethodAnalysis TimePerformed AtPathologist SignatureSpecimen Description.FECES 03/23/2025 6:24 PM EDTMERCY LABORATORIESC DIFF AG + TOXINNEGATIVENEGATIVE 03/23/2025 6:24 PM EDTMERCY LABORATORIESComment:No C. difficile antigen and Toxin Detected.Specimen (Source)Anatomical Location / LateralityCollection Method / VolumeCollection TimeReceived TimeSTOOL SPECIMEN / Csgqzfa4003/23/2025 6:24 PM EDT1 6:24 PM EDT Narrative Authorizing ProviderResult TypeResult StatusChristine M Alexa APNMICROBIOLOGY - GENERAL ORDERABLESFinal ResultPerforming OrganizationAddressCity/State/[place] [address], [facility] [phone] * Gastrointestinal Panel, Molecular (03/23/2025 6:24 PM EDT)ComponentValueRef RangeTest MethodAnalysis TimePerformed AtPathologist SignatureSpecimen Description.FECES03/23/2025 6:24 PM EDTMERCY LABORATORIESCampylobacter PCR NEGATIVE: No Campylobacter spp. (jejuni or coli) DNA DetectedNEGATIVE: No Campylobacter spp. (jejuni or coli) DNA Jgctmuv10/11/2025 6:24 PM EDTMERCY LABORATORIESSalmonella PCRNEGATIVE: No Salmonella spp. DNA DetectedNEGATIVE: No Salmonella spp. DNA Dtalqcjd39/11/2025 6:24 PM EDTMERCY LABORATORIES Shigatoxin Gene PCRNEGATIVE: No Shiga toxin-producing gene(s) Detected NEGATIVE: No Shiga toxin-producing gene(s) Ljsujdgs63/11/2025 6:24 PM EDTMERCY LABORATORIESShigella Sp PCRNEGATIVE: No Shigella spp. / EIEC DNA Detected NEGATIVE: No Shigella spp. / EIEC DNA Jshxpnbv57/11/2025 6:24 PM EDTMERCY LABORATORIESPlesiomonas Shigelloides PCRNEGATIVE: No Plesionomas shigelloides DNA DetectedNEGATIVE: No Plesionomas shigelloides DNA Cuyrqzxr16/11/2025 6:24 PM EDTMERCY LABORATORIESVibrio PCRNEGATIVE: No Vibrio (V. vulnificus, V, parahaemolyticus and V. cholerae) DNA DetectedNEGATIVE: No Vibrio (V. vulnificus, V, parahaemolyticus and03/23/2025 6:24 PM EDTMERCY LABORATORIESE Coli Enterotoxigenic PCRNEGATIVE: No Enterotoxigenic E. coli (ETEC) Heat- labile and heat-stable (LT/ST) DNA DetectedNEGATIVE: No Enterotoxigenic E. coli (ETEC) Heat-labile and03/23/2025 6:24 PM EDTMERCY LABORATORIESYersinia Enterocolitica PCRNEGATIVE: No Yersinia enterocolitica DNA DetectedNEGATIVE: No Yersinia enterocolitica DNA Sydygkzf79/11/2025 6:24 PM EDTMERCY LABORATORIESSpecimen (Source)Anatomical Location / LateralityCollection Method / VolumeCollection TimeReceived TimeSTOOL SPECIMEN / Xyarezi0203/23/2025 6:24 PM EDT1 6:24 PM EDT Narrative Authorizing ProviderResult TypeResult StatusChristine M Alexa APNMICROBIOLOGY - GENERAL ORDERABLESFinal ResultPerforming OrganizationAddressCity/State/ZIP CodePhone Number [place] [id number] [address] [phone] * (ABNORMAL) Magnesium (03/23/2025 2:24 PM EDT)ComponentValueRef RangeTest MethodAnalysis TimePerformed AtPathologist SignatureMagnesium1.4(L)1.6 - 2.6 mg/dL03/23/2025 2:24 PM EDTMERCY LABORATORIESSpecimen (Source)Anatomical Location / LateralityCollection Method / VolumeCollection TimeReceived Time 03/23/2025 2:24 PM EDT10/04/2025 2:37 PM EDT Narrative Authorizing ProviderResult TypeResult StatusDilnoor Chloe MDCHEMISTRY ORDERABLES Final ResultPerforming OrganizationAddressCity/State/ZIP CodePhone Number ROBYN Schroeder[address] [place] [address], [facility] [phone] * (ABNORMAL) Basic Metabolic Panel w/ Reflex to MG (03/23/2025 2:24 PM EDT) ComponentValueRef RangeTest MethodAnalysis TimePerformed AtPathologist MhiqnpmmjIfqyps560(L)136 - 145 mmol/L1 2:24 PM EDTMERCY LABORATORIES Potassium3.5(L)3.7 - 5.3 mmol/L1 2:24 PM EDTMERCY LABORATORIES Kvjebmhf56(L)98 - 107 mmol/L1 2:24 PM EDTMERCY BWMDOYWQNTZUFU18969 - 31 mmol/L1 2:24 PM EDTMERCY LABORATORIESAnion Bre920 - 16 mmol/L 03/23/2025 2:24 PM EDTMERCY INFMMANHAEHQYwcwiwn1166 - 99 mg/dL03/23/2025 2:24 PM EDTMERCY LABORATORIESBUN5(L)6 - 20 mg/dL03/23/2025 2:24 PM EDTMERCY LABORATORIESCreatinine0.3(L)0.6 - 0.9 mg/dL03/23/2025 2:24 PM EDTMERCY LABORATORIESComment:Specimen icterus has exceeded the interference as defined by Francesco. Result may be affected.Est, Glom Filt Rate>90>60 mL/min/1.73m2 03/23/2025 2:24 PM EDTMERCY LABORATORIESComment: ? These results are not intended for use in patients <18 years of age. ? eGFR results are calculated without a race factor using the 2020 CKD-EPI equation. Careful clinical correlation is recommended, particularly when comparing to results calculated using previous equations. The CKD-EPI equation is less accurate in patients with extremes of muscle mass, extra-renal metabolism of creatine, excessive creatine ingestion, or following therapy that affects renal tubular secretion. Calcium7.6(L)8.6 - 10.4 mg/dL03/23/2025 2:24 PM EDTMERCY LABORATORIESSpecimen (Source)Anatomical Location / LateralityCollection Method / VolumeCollection TimeReceived Time03/23/2025 2:24 PM EDT1 2:37 PM EDT Narrative Authorizing ProviderResult TypeResult StatusDilnoor Chloe MDCHEMISTRY ORDERABLES Final ResultPerforming OrganizationAddressCity/State/ZIP CodePhone Number Sendori [address] [place] [address], [facility] [phone] * (ABNORMAL) Protime-INR (03/23/2025 5:20 AM EDT)ComponentValueRef RangeTest MethodAnalysis TimePerformed AtPathologist LnomcympaZwoqejn33.0(H)11.7 - 14.9 sec03/23/2025 5:20 AM EDTMERCY LABORATORIESINR1. 5:20 AM EDTMERCY LABORATORIESComment: ? Therapeutic Range: Moderate Anticoagulant Intensity: INR = 2.0-3.0 High Anticoagulant Intensity: INR = 2.5-3.5 Specimen (Source)Anatomical Location / LateralityCollection Method / Volume Collection TimeReceived TimeBloodBLOOD SPECIMEN / Yewccwb2003/23/2025 5:20 AM EDT 03/23/2025 5:47 AM EDT Narrative Authorizing ProviderResult TypeResult StatusAimee Miester CDA TEACHER - NPHEMATOLOGY ORDERABLESFinal ResultPerforming OrganizationAddressty/State/ZIP CodePhone Number Sendori [address] [place] [address], [facility] [phone] * TSH reflex to FT4 (03/23/2025 5:20 AM EDT)ComponentValueRef RangeTest Method Analysis TimePerformed AtPathologist SignatureTSH1.960.27 - 4.20 uIU/mL 03/23/2025 5:20 AM EDTMERCY LABORATORIESSpecimen (Source)Anatomical Location / LateralityCollection Method / VolumeCollection TimeReceived Time03/23/2025 5:20 AM EDT1 5:47 AM EDT Narrative Authorizing ProviderResult TypeResult StatusAimee Miester CDA TEACHER - NPCHEMISTRY ORDERABLESFinal ResultPerforming OrganizationAddressCity/State/ZIP CodePhone Number Sendori [facility] [place] [address], [facility] [phone] * (ABNORMAL) Lipid, Fasting (03/23/2025 5:20 AM EDT)ComponentValueRef RangeTest MethodAnalysis TimePerformed AtPathologist SignatureCholesterol, Vsbyxpf596(H) 0 - 199 mg/dL03/23/2025 5:20 AM EDTMERCY LABORATORIESComment: Cholesterol Guidelines: <200 Desirable 200-240 ??Borderline >240 Undesirable HDL22(L)>40 mg/dL03/23/2025 5:20 AM EDTMERCY LABORATORIESComment: HDL Guidelines: <40 Undesirable 40-59 ?Borderline >59 Desirable LDL Fnwgeriroms578(H)0 - 100 mg/dL03/23/2025 5:20 AM EDTMERCY LABORATORIES Comment: LDL Guidelines: <100 Desirable 100-129 ?? Near to/above Desirable 130-159 ?? Borderline >159 Undesirable Direct (measured) LDL and calculated LDL are not interchangeable tests. Chol/HDL Ratio16.3(H)<5.010 5:20 AM EDTMERCY LABORATORIESTriglyceride, Tiafxeg4244 - 149 mg/dL03/23/2025 5:20 AM EDTMERCY LABORATORIESComment: Triglyceride Guidelines: <150 Desirable 150-199 ??Borderline 200-499 ??High >499 Very high Based on AHA Guidelines for fasting triglyceride, March 2012. TAHT473 - 30 mg/dL03/23/2025 5:20 AM EDTMERCY LABORATORIESSpecimen (Source) Anatomical Location / LateralityCollection Method / VolumeCollection Time Received TimeBloodBLOOD SPECIMEN / Wsnwbxt9603/23/2025 5:20 AM EDT1 5:47 AM EDT Narrative Authorizing ProviderResult TypeResult StatusAimee Miester CDA TEACHER - NPCHEMISTRY ORDERABLESFinal ResultPerforming OrganizationAddressCity/State/ZIP CodePhone Number Sendori [address] [place] [address], [facility] [phone] * (ABNORMAL) CBC auto differential (03/23/2025 5:20 AM EDT)ComponentValueRef RangeTest MethodAnalysis TimePerformed AtPathologist LianjesypHVN29.8(H)3.5 - 11.3 k/uL03/23/2025 5:20 AM EDTMERCY LABORATORIESRBC2.07(L)3.95 - 5.11 m/uL 03/23/2025 5:20 AM EDTMERCY LABORATORIESHemoglobin7.8(L)11.9 - 15.1 g/dL 03/23/2025 5:20 AM EDTMERCY LZYHKVGXPNGSRvmtverxfh65.1(L)36.3 - 47.1 % 03/23/2025 5:20 AM EDTMERCY VBQCQDVAAFZXRVI888.4(H)82.6 - 102.9 fL03/23/2025 5:20 AM EDTMERCY NHCBWDFUWTZTIIS30.7(H)25.2 - 33.5 pg03/23/2025 5:20 AM EDT [place] LKDWIZJSGXUQKJMG26.428.4 - 34.8 g/dL03/23/2025 5:20 AM EDTMERCY QAXDFVYKVUSEBEM75.7(H)11.8 - 14.4 %03/23/2025 5:20 AM EDTMERCY LABORATORIES Cuwpdmpcw719336 - 453 k/uL03/23/2025 5:20 AM EDTMERCY QGMCSZJTWJLXATX95.78.1 - 13.5 fL03/23/2025 5:20 AM EDTMERCY LABORATORIESNRBC Automated0.2(H)0.0 per 100 WBC03/23/2025 5:20 AM EDTMERCY LABORATORIESImmature Granulocytes %2(H)0 % 03/23/2025 5:20 AM EDTMERCY LABORATORIESNeutrophils %84(H)36 - 65 %03/23/2025 5:20 AM EDTMERCY LABORATORIESLymphocytes %7(L)24 - 43 %03/23/2025 5:20 AM EDT [facility]IESMonocytes %53 - 12 %03/23/2025 5:20 AM EDTM[facility] LABORATORIES Eosinophils %11 - 4 %03/23/2025 5:20 AM EDTMERCY LABORATORIESBasophils %10 - 2 %03/23/2025 5:20 AM EDTMERCY LABORATORIESImmature Granulocytes Absolute0.28 0.00 - 0.30 k/uL03/23/2025 5:20 AM EDTMERCY LABORATORIESNeutrophils Absolute 11.58(H)1.50 - 8.10 k/uL03/23/2025 5:20 AM EDTMERCY LABORATORIESLymphocytes Absolute0.97(L)1.10 - 3.70 k/uL03/23/2025 5:20 AM EDTM[facility]CY LABORATORIES Monocytes Absolute0.690.10 - 1.20 k/uL03/23/2025 5:20 AM EDTM[facility] LABORATORIES Eosinophils Absolute0.140.00 - 0.44 k/uL03/23/2025 5:20 AM EDTMERCY LABORATORIESBasophils Absolute0.140.00 - 0.20 k/uL03/23/2025 5:20 AM EDTMERCY LABORATORIESMorphologyMACROCYTOSIS EOPQWDV4003/23/2025 5:20 AM EDTMERCY LABORATORIESMorphologyANISOCYTOSIS PZPSUAL0603/23/2025 5:20 AM EDTMERCY LABORATORIESSpecimen (Source)Anatomical Location / LateralityCollection Method / VolumeCollection TimeReceived Time03/23/2025 5:20 AM EDT1 5:47 AM EDT Narrative Authorizing ProviderResult TypeResult StatusAimee Miester CDA TEACHER - NPHEMATOLOGY ORDERABLESFinal ResultPerforming OrganizationAddressCity/State/ZIP CodePhone Number Sendori [address] [place] [address], [facility] [phone] * Phosphorus (03/23/2025 5:20 AM EDT)ComponentValueRef RangeTest MethodAnalysis TimePerformed AtPathologist SignaturePhosphorus2.82.5 - 4.5 mg/dL03/23/2025 5:20 AM EDTMERCY LABORATORIESSpecimen (Source)Anatomical Location / Laterality Collection Method / VolumeCollection TimeReceived Time03/23/2025 5:20 AM EDT 03/23/2025 5:47 AM EDT Narrative Authorizing ProviderResult TypeResult StatusAimee Miester CDA TEACHER - NPCHEMISTRY ORDERABLESFinal ResultPerforming OrganizationAddressCity/State/ZIP CodePhone Number Sendori [address] [place], [place] [address] [phone] * (ABNORMAL) Magnesium (03/23/2025 5:20 AM EDT)ComponentValueRef RangeTest MethodAnalysis TimePerformed AtPathologist SignatureMagnesium1.2(L)1.6 - 2.6 mg/dL03/23/2025 5:20 AM EDTMERCY LABORATORIESSpecimen (Source)Anatomical Location / LateralityCollection Method / VolumeCollection TimeReceived Time 03/23/2025 5:20 AM EDT1 5:47 AM EDT Narrative Authorizing ProviderResult TypeResult StatusAimee Miester CDA TEACHER - NPCHEMISTRY ORDERABLESFinal ResultPerforming OrganizationAddressCity/State/ZIP CodePhone Number [place] [phone] [address] [phone] * (ABNORMAL) Comprehensive Metabolic Panel w/ Reflex to MG (03/23/2025 5:20 AM EDT)ComponentValueRef RangeTest MethodAnalysis TimePerformed AtPathologist TiybrzzoqNsobvk339(L)136 - 145 mmol/L1 5:20 AM EDTMERCY LABORATORIES Potassium2.8(LL)3.7 - 5.3 mmol/L1 5:20 AM EDTM[facility] LABORATORIES Zycuyspy92(L)98 - 107 mmol/L1 5:20 AM EDTMERCY AUCWKAJVRZXIIB65701 - 31 mmol/L1 5:20 AM EDTMERCY LABORATORIESAnion Qni561 - 16 mmol/L 03/23/2025 5:20 AM EDTMERCY UWSNIMHAFJKOAvhorul3685 - 99 mg/dL03/23/2025 5:20 AM EDTMERCY OKWWACGATXOALLW45 - 20 mg/dL03/23/2025 5:20 AM EDTMERCY LABORATORIESCreatinine0.4(L)0.6 - 0.9 mg/dL03/23/2025 5:20 AM EDTMERCY LABORATORIESComment:Specimen icterus has exceeded the interference as defined by Francesco. Result may be affected.Est, Glom Filt Rate>90>60 mL/min/1.73m2 03/23/2025 5:20 AM EDTMERCY LABORATORIESComment: ? These results are not intended for use in patients <18 years of age. ? eGFR results are calculated without a race factor using the 2020 CKD-EPI equation. Careful clinical correlation is recommended, particularly when comparing to results calculated using previous equations. The CKD-EPI equation is less accurate in patients with extremes of muscle mass, extra-renal metabolism of creatine, excessive creatine ingestion, or following therapy that affects renal tubular secretion. Calcium8.2(L)8.6 - 10.4 mg/dL03/23/2025 5:20 AM EDTMERCY LABORATORIESTotal Protein5.7(L)6.6 - 8.7 g/dL03/23/2025 5:20 AM EDTMERCY LABORATORIESAlbumin2.8(L) 3.5 - 5.2 g/dL03/23/2025 5:20 AM EDTMERCY LABORATORIESAlbumin/Globulin Ratio1.0 1.0 - 2. 5:20 AM EDTMERCY LABORATORIESTotal Bilirubin6.6(H)0.0 - 1.2 mg/dL03/23/2025 5:20 AM EDTMERCY LABORATORIESAlkaline Fhvipnbbzci469(H)35 - 104 U/L1 5:20 AM EDTMERCY XTDWXADUAYYOCBM05(H)10 - 35 U/L1 5:20 AM EDTMERCY VHSPDCKGSXANRST801(H)10 - 35 U/L1 5:20 AM EDTMERCY LABORATORIESSpecimen (Source)Anatomical Location / LateralityCollection Method / VolumeCollection TimeReceived Time03/23/2025 5:20 AM EDT1 5:47 AM EDT Narrative Authorizing ProviderResult TypeResult StatusAimee Miester CDA TEACHER - NPCHEMISTRY ORDERABLESFinal ResultPerforming OrganizationAddressCity/State/ZIP CodePhone Number [place] [phone] [place] [address], [facility] [phone] * (ABNORMAL) Lipase (03/22/2025 9:34 PM EDT)ComponentValueRef RangeTest Method Analysis TimePerformed AtPathologist MeieczwfvLjegcm94(L)13 - 60 U/L1 9:34 PM EDTMERCY LABORATORIESSpecimen (Source)Anatomical Location / LateralityCollection Method / VolumeCollection TimeReceived TimeBLOOD SPECIMEN / Oqnzkzp9503/22/2025 9:34 PM EDT1 9:36 PM EDT Narrative Authorizing ProviderResult TypeResult StatusAimee Chao CDA TEACHER - NPCHEMISTRY ORDERABLESFinal ResultPerforming OrganizationAddressCity/State/ZIP CodePhone Number Sendori [facility] [phone] documented in this encounter Visit Diagnoses Diagnosis Acute cholecystitis- Primary Hypotension, unspecified hypotension type Anemia, unspecified type Common bile duct stricture (HCC) Obstruction of bile duct Tobacco user Tobacco use disorder Jaundice Jaundice, unspecified, not of Restless legs Restless legs syndrome (RLS) Hepatic steatosis Other chronic nonalcoholic liver disease Common bile duct dilatation Other specified disorders of biliary tract History of breast cancer Personal history of malignant neoplasm of breast Unintended weight loss Daily consumption of alcohol Generalized abdominal pain Abdominal pain, generalized Gastritis without bleeding Unspecified gastritis and gastroduodenitis without mention of hemorrhage Adenomatous polyp of ascending colon Hypotension Hypotension, unspecified documented in this encounter Admitting Diagnoses Diagnosis Acute cholecystitis documented in this encounter Administered Medications Medication OrderMAR ActionAction DateDoseRateSite 0.9 % sodium chloride infusion IntraVENous, at 125 mL/hr, CONTINUOUS, Starting on Tue03/22/25 at 1945 New 03/22/2025 8:17 PM TPE783 mL/hr 0.9 % sodium chloride infusion IntraVENous, at 100 mL/hr, CONTINUOUS, Starting on Tue03/23/25 at 1745 03/25/2025 1:17 AM OEZ244 mL/hrNew 03/24/2025 2:36 PM DWF064 mL/hr Rate/Dose Dzcrhl1603/24/2025 3:26 AM MVQ051 mL/hr 0.9% NaCl with KCl 20 mEq infusion IntraVENous, at 100 mL/hr, CONTINUOUS, Starting on Tue03/23/25 at 0800, For 1 day 03/23/2025 9:50 AM VTD019 mL/hr 0.9% NaCl with KCl 20 mEq infusion IntraVENous, at 100 mL/hr, CONTINUOUS, Starting on Tue03/25/25 at 1145 03/28/2025 2:24 AM FOX752 mL/hrRate/Dose Ghnfcl4903/28/2025 12:00 AM CGL663 mL/ueSgshurddi35/15/2025 9:12 PM GJU381 mL/hr acetaminophen (TYLENOL) suppository 650 mg 650 mg, Rectal, EVERY 6 HOURS PRN, Starting on 03/22/25 at 1928, Until 03/31/25 at 191, Pain Mild (1-3) OR per patient request for pain score (4-10), Fever, For temp greater than 100.4 F (38C), Administer if oral route cannot be used. acetaminophen (TYLENOL) tablet 650 mg 650 mg, Oral, EVERY 6 HOURS PRN, Starting on Tue03/22/25 at 1928, Until 03/31/25 at 1910, PainMild (1-3) OR per patient request for pain score (4-10), Fever, For temp greater than 100.4 F (38 C), Maximum dose of acetaminophen is 4000 mg from all sources in 24 hours. ALPRAZolam (XANAX) tablet 0.25 mg 0.25 mg, Oral, Once, 1 dose, On Tue03/29/25 at 1630 Given03/29/2025 4:23 PM EDT0.25 mg ALPRAZolam (XANAX) tablet 0.25 mg 0.25 mg, Oral, 3 TIMES DAILY PRN, Starting on 03/30/25 at 1102, Until Tue03/31/25 at 191, Anxiety Given03/30/2025 11:27 AM EDT0.25 mg aluminum & magnesium hydroxide-simethicone (MAALOX PLUS) 200-200-20 MG/5ML suspension 30 mL 30 mL, Oral, EVERY 6 HOURS PRN, Starting on 03/23/25 at 1947, Until Tue03/31/25 at 1911, Indigestion Given03/27/2025 10:18 AM EDT30 mLs bisacodyl (DULCOLAX) EC tablet 20 mg 20 mg, Oral, ONCE, 1 dose, On Tue03/24/25 at 1400, Do not crush or break. Given03/24/2025 2:31 PM EDT20 mg bisacodyl (DULCOLAX) suppository 10 mg 10 mg, Rectal, DAILY PRN, Starting on Tue03/27/25 at 1848, Until Tue03/31/25 at 1911, Constipation Given03/27/2025 6:50 PM EDT10 mg calcium carbonate (TUMS) chewable tablet 500 mg 500 mg, Oral, 3 TIMES DAILY PRN, Starting on Tue03/23/25 at 1946, Until Tue03/31/25 at 1911, Heartburn Given03/24/2025 2:47 PM BEJ173 paLqlcs3003/23/2025 7:56 PM HUQ905 mg calcium gluconate 2,000 mg in sodium chloride 100 mL 2,000 mg, IntraVENous, at 50 mL/hr, Administer over 120 Minutes, ONCE, On Tue03/26/25 at 0900, For1 dose New Bag03/26/2025 10:19 AM EDT2,000 mg50 mL/hr enoxaparin (LOVENOX) injection 40 mg 40 mg, SubCUTAneous, DAILY, First dose on Tue03/22/25 at 1945, Until Discontinued, Indication of Use: Prophylaxis-DVT/PE, Administer by deep subCUTAneous injection with pt lying down. Alternate injection sites on abdominal wall. Do not rub site after injection. Check with provider prior to any invasive procedure., On hold since Tue03/24/2025 at 1342 until manually unheld Given03/24/2025 9:50 AM EDT40 mgAbdomen RUQ (Right Upper Quadrant)Given 03/23/2025 11:30 AM EDT40 mgAbdomen LUQ (Left Upper Quadrant) famotidine (PEPCID) tablet 20 mg 20 mg, Oral, 2 TIMES DAILY, First dose on Tue03/22/25 at 2100, Until Discontinued Given03/22/2025 8:31 PM EDT20 mg fentaNYL (SUBLIMAZE) injection 100 mcg 100 mcg, IntraVENous, ONCE, 1 dose, On Tue03/29/25 at 0930, If oral and IV narcotics ordered, use oral first and only use IV if oral is ineffective or cannot take oral. Do Not give oral and IV within 1 hour of each other unless specifically ordered., STAT, Pre-op (day of surgery) Given03/29/2025 9:09 AM URW661 mcg fentaNYL (SUBLIMAZE) injection 50 mcg 50 mcg, IntraVENous, ONCE, 1 dose, On Tue03/26/25 at 1845, If oral and IV narcotics ordered, use oral first and only use IV if oral is ineffective or cannot take oral. Do Not give oral and IV within1 hour of each other unless specifically ordered., Post-op Given03/26/2025 6:29 PM EDT50 mcg fentaNYL (SUBLIMAZE) injection 50 mcg 50 mcg, IntraVENous, ONCE, 1 dose, On Tue03/26/25 at 2030, If oral and IV narcotics ordered, use oral first and only use IV if oral is ineffective or cannot take oral. Do Not give oral and IV within1 hour of each other unless specifically ordered., Post-op Given03/26/2025 9:07 PM EDT50 mcg furosemide (LASIX) injection 20 mg 20 mg, IntraVENous, ONCE, 1 dose, On Tue03/29/25 at 2230 Given03/29/2025 10:16 PM EDT20 mg gadoteridol (PROHANCE) injection 10 mL 10 mL, IntraVENous, IMG ONCE PRN, 1 dose, Starting on Tue03/24/25 at 0855, Until Tue03/24/25 at 0932, Other Given03/24/2025 9:32 AM EDT10 mLs HYDROmorphone (DILAUDID) injection 0.25 mg 0.25 mg, IntraVENous, EVERY 3 HOURS PRN, Starting on Tue03/22/25 at 2014, Until Tue03/31/25 at 1911, Pain Moderate (4-6) OR per patient request for pain score (7-10), Pain Severe (7-10), If oral and IV narcotics ordered, use oral first and only use IV if oral is ineffective or cannot take oral. Do Not give oral and IV within 1 hour of each other unless specifically ordered. Please hold for lethargy or respiratory rate <12b/m Given03/30/2025 7:59 AM EDT0.25 gqJcvso3703/29/2025 6:15 AM EDT0.25 mgGiven 03/28/2025 11:29 PM EDT0.25 mg HYDROmorphone (DILAUDID) injection 0.5 mg 0.5 mg, IntraVENous, EVERY 5 MIN PRN, 2 doses, Starting on Tue03/29/25 at 1211, Until Tue03/29/25at 1324, Pain Severe (7-10), For Phase I. If Phase II oral narcotics have been administered in the last 60 minutes, do not administer IV narcotics unless specifically approved by provider., PACU only Given03/29/2025 12:17 PM EDT0.5 mg indocyanine green (IC-GREEN) syringe 5 mg 5 mg, IntraVENous, ONCE, 1 dose, On Tue03/29/25 at 0915, Flush dye from catheter with NS to prevent hemolysis. Reconstitute vial with 10 mL of included Sterile Water diluent for final concentration of 2.5 mg/mL. Given03/29/2025 9:44 AM EDT5 mg magnesium sulfate 2000 mg in 50 mL IVPB premix 2,000 mg, IntraVENous, at 25 mL/hr, Administer over 2 Hours, PRN, Other, Magnesium Replacement, Starting on Tue03/22/25 at 1928, Mag Lab Replacement Action 1.4-1.6 mg/dL 2,000 mg Total Dose Given as1,000 mg IVPB x 2 doses or 2,000 mg IVPB x 1 dose 1.0-1.3 mg/dL 4,000 mg Total Dose Given as 1,000mg IVPB x 4 doses or 2,000 mg IVPB x 2 doses Less than 1.0 mg/dL CALL PHYSICIAN and give 4,000 mg Total Dose Given as 1,000 mg IVPB x 4 doses or 2,000 mg IVPB x 2 doses Infuse at 1,000 mg/hr consecutively Repeat Mag level 1 hour after final administration Protocol not for use in Patients with CrClless than 30ml/min New Bag03/23/2025 8:12 PM EDT2,000 mg25 mL/hrNew Bag03/23/2025 1:13 PM EDT2,000 mg25 mL/hr magnesium sulfate 2000 mg in 50 mL IVPB premix 2,000 mg, IntraVENous, at 25 mL/hr, Administer over 2 Hours, PRN, Other, Per Magnesium IV Replacement Protocol, Starting on Tue03/25/25 at 1119, Mag Lab Replacement Action 1.4-1.6 mg/dL 2,000 mg Total Dose Given as 1,000 mg IVPB x 2 doses or 2,000 mg IVPB x 1 dose 1.0-1.3 mg/dL 4,000 mg Total DoseGiven as 1,000 mg IVPB x 4 doses or 2,000 mg IVPB x 2 doses <1.0 mg/dL CALL PHYSICIAN and give 4,000 mg Total Dose Given as 1,000 mg IVPB x 4 doses or 2,000 mg IVPB x 2 doses Infuse at 1,000 mg/hrconsecutively Repeat Mag level next AM Protocol not for use in Patients with CrCl<30ml/min Rate/Dose Ahnmsp2103/25/2025 2:13 PM EDT25 mL/hrNew Bag03/25/2025 1:08 PM EDT2,000 mg25 mL/hr magnesium sulfate 2000 mg in 50 mL IVPB premix 2,000 mg, IntraVENous, at 25 mL/hr, Administer over 2 Hours, ONCE, On 03/30/25 at 1130, For 1 dose New 03/30/2025 12:13 PM EDT2,000 mg25 mL/hr melatonin tablet 10 mg 10 mg, Oral, NIGHTLY PRN, Starting on Tue03/22/25 at 2016, Until 03/31/25 at 1911, sleep Given03/30/2025 9:14 PM EDT10 wdPbuze6403/29/2025 10:15 PM EDT10 ynWhodm4603/28/2025 11:29 PM EDT10 mg metroNIDAZOLE (METROCREAM) 0.75 % cream Topical, 2 TIMES DAILY, First dose on 03/24/25 at 2100, Apply to face . Given03/31/2025 10:07 AM TCFRzvtrNfcdn60/18/2025 8:11 PM EWSPfbhuSogdr91/18/2025 8:08 AM EDTOther midazolam PF (VERSED) IntraVENous 2 mg 2 mg, IntraVENous, ONCE PRN, 1 dose, Starting on Tue03/29/25 at 1211, Until Tue03/29/25 at 1223, Anxiety, PACU only Given03/29/2025 12:23 PM EDT2 mg midodrine (PROAMATINE) tablet 10 mg 10 mg, Oral, 3 TIMES DAILY WITH MEALS, First dose (after last modification) on 03/25/25 at 1200, Until Discontinued, Do not give after 1800 or within 4 hrs of bedtime. Hold if SBP>130 Given03/30/2025 1:05 PM EDT10 ghZnuvv7303/29/2025 4:23 PM EDT10 ctMajok2203/29/2025 7:49 AM EDT10 mg midodrine (PROAMATINE) tablet 5 mg 5 mg, Oral, 3 TIMES DAILY WITH MEALS, First dose (after last modification) on Tue03/24/25 at 0830,Until Discontinued, Do not give after 1800 or within 4 hrs of bedtime. Hold if SBP>130 Given03/24/2025 4:59 PM EDT5 lbArmln4503/24/2025 2:31 PM EDT5 wzAsesv1103/24/2025 10:21 AM EDT5 mg ondansetron (ZOFRAN) injection 4 mg 4 mg, IntraVENous, EVERY 6 HOURS PRN, Starting on Tue03/22/25 at 192, Until Tue03/31/25 at 191,Nausea, Vomiting, Administer if oral route cannot be used. ondansetron (ZOFRAN-ODT) disintegrating tablet 4 mg 4 mg, Oral, EVERY 8 HOURS PRN, Starting on Tue03/22/25 at 1928, Until Tue03/31/25 at 191, Nausea, Vomiting Given03/29/2025 1:30 PM EDT4 jdWaupf1803/22/2025 8:31 PM EDT4 mg oxyCODONE-acetaminophen (PERCOCET) 5-325 MG per tablet 1 tablet 1 tablet, Oral, EVERY 4 HOURS PRN, Starting on Tue03/26/25 at 1204, Until Tue03/31/25 at 191, Pain Severe (7-10), Maximum dose of acetaminophen is 4000 mg from all sources in 24 hours. Given03/31/2025 1:06 PM EDT1 fgmgemLpauo44/19/2025 6:19 AM EDT1 tabletGiven 03/31/2025 1:38 AM EDT1 tablet pantoprazole (PROTONIX) 40 mg in sodium chloride (PF) 0.9 % 10 mL injection 40 mg, IntraVENous, DAILY, First dose on Tue03/22/25 at 2044, Reconstitute each 40 mg vial with 10mL of 0.9% sodium chloride and administer each 40 mg vial over at least 2 minutes. Given03/31/2025 9:58 AM EDT40 bsWkfiy21/ 7:59 AM EDT40 sjMkwwm4003/29/2025 7:49 AM EDT40 mg piperacillin-tazobactam (ZOSYN) 3,375 mg in sodium chloride 0.9 % 50 mL IVPB (addEASE) 3,375 mg, IntraVENous, EVERY 8 HOURS, 24 doses, First dose on Tue03/22/25 at 1945, Last dose on Tue03/30/25 at 2000, Antimicrobial Indications: Intra- Abdominal Infection, Use 20mm (GREEN) addEASE Adapter Prep Instructions: Attach medication vial to one 20mm (GREEN) addEASE adapter. Roberto fluid bag with adapter, mix, and administer per order. New Bag03/30/2025 8:09 PM EDT3,375 mg12.5 mL/hrRate/Dose Umznwo4003/30/2025 4:16 PM EDT12.5 mL/ndAtxogkuya87/18/2025 3:49 PM EDT12.5 mL/hr polyethylene glycol (GLYCOLAX) packet 17 g 17 g, Oral, DAILY PRN, Starting on Tue03/22/25 at 1928, Until Tue03/29/25 at 2208, Constipation, First line therapy for constipation Given03/27/2025 10:18 AM EDT17 g polyethylene glycol (GLYCOLAX) packet 17 g 17 g, Oral, DAILY PRN, Starting on Tue03/29/25 at 2207, Until Tue03/31/25 at 1911, Constipation, Stir and dissolve one packet of powder (17 g) in any 4 to 8 ounces of beverage (cold, hot or room temperature) then drink Given03/29/2025 10:20 PM EDT17 g polyethylene glycol (GoLYTELY) solution 4,000 mL 4,000 mL, Oral, ONCE, 1 dose, On Tue03/24/25 at 1400, Fill container containing powder with lukewarm water to 4 liter fill line. After capping container, shake vigorously several times. Drink at a rate of 240 mL (8 oz.) every 10 minutes, until 4 liters are consumed or rectal effluent is clear. Fornasogastric tube, rate is 1.2 to 1.8 liters per hour. Given03/24/2025 3:38 PM EDT4,000 mLs potassium bicarb-citric acid (EFFER-K) effervescent tablet 40 mEq 40 mEq, Oral, PRN, Starting on Tue03/22/25 at 1928, Until 03/31/25 at 1911, Per Potassium Replacement Protocol, Administer as alternative if patient unable to tolerate oral tablet. K Lab Replacement Action 3.1 to 3.5 40 mEq ORAL x 1 Under 3.1 Refer to IV replacement protocol Recheck K level Brandon. Protocol not for use in patients with CrCl lessthan 30 mL/min. Do not chew or crush. Dissolve flavored tablets completely in 3 to 4 ounces of cold water; unflavored tablets may be dissolved in 3 to 4 ounces of cold juice. Patient to sip slowly over a 5 to 10 minute period. May further dilute ifGI adverse effects occur. potassium chloride (KLOR-CON M) extended release tablet 20 mEq 20 mEq, Oral, DAILY, First dose on 03/23/25 at 1345, Until Discontinued, Do not crush, chew, orsuck on tablet. Tablet may also be broken in half and each half swallowed separately. Given03/31/2025 9:58 AM EDT20 oKqRtdxw71/18/2025 7:59 AM EDT20 mEqGiven 03/28/2025 9:17 AM EDT20 mEq potassium chloride (KLOR-CON M) extended release tablet 40 mEq 40 mEq, Oral, PRN, Starting on Tue03/22/25 at 1928, Until 03/31/25 at 1911, Potassium Replacement, May give alternative linked oral order (ordered as effervescent, packet, or liquid solution) ifpatient unable to tolerate tablet. K Lab Replacement Action 3.1 to 3.5 40 mEq ORAL x 1 Under 3.1 Refer to IV replacement protocol Recheck K level in AM. Protocol not for use in patients with CrCl less than 30 mL/min. Do not crush, chew, or suck on tablet. Tablet may also be broken in half and each half swallowed separately. potassium chloride (KLOR-CON M) extended release tablet 40 mEq 40 mEq, Oral, ONCE, 1 dose, On 03/30/25 at 1130, Do not crush, chew, or suck on tablet. Tablet may also be broken in half and each half swallowed separately. Given03/30/2025 11:27 AM EDT40 mEq potassium chloride 10 mEq/100 mL IVPB (Peripheral Line) 10 mEq, IntraVENous, PRN, Starting on Tue03/22/25 at 1928, Until Tue03/31/25 at 1911, at 100 mL/hr, Other, Potassium Replacement, K Lab Replacement Action 2.7 to 3.0 10 mEq IVPB x 6 doses (60 mEq Total) Under 2.7 CALL PROVIDER and administer 10 mEq IVPB x 6 doses (60 mEq Total) Infuse at 10 mEq/hr consecutively. Repeat Potassium lab 1 hour after final administration., Protocol not for use in patients with CrCl less than 30 mL/min. Rate/Dose Rpocvo2003/28/2025 4:15 PM EEN046 mL/hrRate/Dose Jidhfw3503/27/2025 10:49 AM XRZ654 mL/hrNew Bag03/25/2025 9:10 PM EDT10 rQo417 mL/hr rOPINIRole (REQUIP) tablet 0.25 mg 0.25 mg, Oral, NIGHTLY PRN, Starting on Tue03/22/25 at 2016, Until Tue03/31/25 at 191, Restless legs Given03/30/2025 9:14 PM EDT0.25 vnRxzgp0203/29/2025 10:15 PM EDT0.25 mgGiven 03/28/2025 11:29 PM EDT0.25 mg sodium chloride 0.9 % bolus 250 mL 250 mL (4.62 mL/kg), IntraVENous, at 245.9 mL/hr, Administer over 61 Minutes, ONCE, On Tue03/25/25at 1145, For 1 dose New 03/25/2025 12:54 PM PAQ544 lJh040.9 mL/hr sodium chloride 0.9 % bolus 500 mL 500 mL (9.24 mL/kg), IntraVENous, at 247.9 mL/hr, Administer over 121 Minutes, ONCE, On Tue03/24/25 at 0400, For 1 dose New 03/24/2025 3:42 AM LSI055 iBu405.9 mL/hr sodium chloride flush 0.9 % injection 10 mL 10 mL, IntraVENous, PRN, Starting on Tue03/24/25 at 0855, Until Tue03/31/25 at 191, Line Care Given03/24/2025 9:32 AM EDT10 mLs sodium chloride flush 0.9 % injection 5-40 mL 5-40 mL, IntraVENous, EVERY 12 HOURS SCHEDULED (2 times per day), First dose on Tue03/22/25 at 2100, Until Discontinued, For Line Patency: Peripheral IV = 5 mL; Midline or Central Line = 10 mL/lumen. If following IV push medication, administer flush at same rate as the IV push. Flush volume is determined by type of infusion therapy being given. For non-viscous solutions use: Peripheral IV = 5 mLMidline or Central Line = 10 mL/lumen For viscous solutions (i.e. blood components, parenteral nutrition, contrast media, or after obtaining blood sample) use: Peripheral IV = 10 mL Midline or Central Line = 20 mL/lumen Given03/31/2025 10:01 AM EDT10 jUpOqphj61/18/2025 8:11 PM EDT10 mLsGiven 03/30/2025 8:00 AM EDT10 mLsdocumented in this encounter Active and Recently Administered Medications Times are shown in EDT.Medication Order ALPRAZolam (XANAX) tablet 0.25 mg (COMPLETED) 0.25 mg, Oral, Once, 1 dose, On Tue03/29/25 at 1630 * 1623 (Given - Provider: Didi Gipson RN) enoxaparin (LOVENOX) injection 40 mg 40 mg, SubCUTAneous, DAILY, First dose (after last modification) on Tue03/30/25 at 0900, Until Discontinued, Indication of Use: Prophylaxis-DVT/PE, Administer by deep subCUTAneous injection with pt lying down. Alternate injection sites on abdominal wall. Do not rub site after injection. Check withprovider prior to any invasive procedure. * 1325 (Held by provider - Provider: Isaias Monae DO - Reason: Transfer to a Procedural area) * 0846 (Unheld by provider - Provider: Mini Tracy DO) * 1101 (Not Given - Provider: Chan Galvin RN - Reason: Patient/family refused) * 1006 (Not Given - Provider: Chan Galvin RN - Reason: Order parameters not met) fentaNYL (SUBLIMAZE) injection 100 mcg (COMPLETED) 100 mcg, IntraVENous, ONCE, 1 dose, On Tue03/29/25 at 0930, If oral and IV narcotics ordered, use oral first and only use IV if oral is ineffective or cannot take oral. Do Not give oral and IV within 1 hour of each other unless specifically ordered., STAT, Pre-op (day of surgery) * 0909 (Given - Provider: Isela Miller, MARIAJOSE) furosemide (LASIX) injection 20 mg (COMPLETED) 20 mg, IntraVENous, ONCE, 1 dose, On Tue03/29/25 at 2230 * 2216 (Given - Provider: Stacey Chandra, RN) indocyanine green (IC-GREEN) syringe 5 mg (COMPLETED) 5 mg, IntraVENous, ONCE, 1 dose, On Tue03/29/25 at 0915, Flush dye from catheter with NS to prevent hemolysis. Reconstitute vial with 10 mL of included Sterile Water diluent for final concentration of 2.5 mg/mL. * 0944 (Given - Provider: Isela Miller, MARIAJOSE) magnesium sulfate 2000 mg in 50 mL IVPB premix (COMPLETED) 2,000 mg, IntraVENous, at 25 mL/hr, Administer over 2 Hours, ONCE, On Tue03/30/25 at 1130, For 1 dose * 1213 (New Bag - Provider: Chan Galvin, RN) * 1415 (Stopped - Provider: Chan Galvin, RN) * 1433 (Stopped - Provider: Chan Galvin, RN) metroNIDAZOLE (METROCREAM) 0.75 % cream Topical, 2 TIMES DAILY, First dose on Tue03/24/25 at 2100, Apply to face . * 0749 (Given - Provider: Didi Gipson RN - Comment: face) * 0839 ([facility] Hold - Provider: Lacey Autohold - Reason: Unreviewed Transfer Orders) * 1325 ([facility] Unhold - Provider: Didi Gipson RN) * 2052 (Given - Provider: Stacey Chandra RN - Comment: face) * 08 (Given - Provider: Chan Galvin RN - Comment: face) * 2010 (Given - Provider: Stacey Chandra RN - Comment: face) * 1006 (Given - Provider: Chan Galvin RN - Comment: FACE- patient applied) midodrine (PROAMATINE) tablet 10 mg 10 mg, Oral, 3 TIMES DAILY WITH MEALS, First dose (after last modification) on Tue03/25/25 at 1200, Until Discontinued, Do not give after 1800 or within 4 hrs of bedtime. Hold if SBP>130 * 0749 (Given - Provider: Didi Gipson RN) * 0839 ([facility] Hold - Provider: [facility] - Reason: Unreviewed Transfer Orders) * 1200 (Not Given - Provider: Didi Gipson RN - Reason: Order parameters not met) * 1325 ([facility] Unhold - Provider: Didi Gipson RN) * 1623 (Given - Provider: Didi Gipson RN) * 0758 (Not Given - Provider: Chan Galvin RN - Reason: Order parameters not met - Comment: BP 120/78) * 1305 (Given - Provider: Chan Galvin RN) * 1700 (Not Given - Provider: Chan Galvin RN - Reason: Order parameters not met - Comment: BP 112/65) * 0957 (Not Given - Provider: Chan Galvin RN - Reason: Order parameters not met - Comment: BP 114/87) * 1309 (Not Given - Provider: Chan Galvin RN - Reason: Order parameters not met - Comment: Bp 113/75) * 1700 (Due) midodrine (PROAMATINE) tablet 10 mg 10 mg, Oral, Once, 1 dose, On Tue03/25/25 at 1145, Do not give after 1800 or within 4 hrs of bedtime. * 0839 ([facility] Hold - Provider: [facility] Autohold - Reason: Unreviewed Transfer Orders) * 1325 ([facility] Unhold - Provider: Didi Gipson RN) pantoprazole (PROTONIX) 40 mg in sodium chloride (PF) 0.9 % 10 mL injection 40 mg, IntraVENous, DAILY, First dose on Tue03/22/25 at 2045, Reconstitute each 40 mg vial with 10mL of 0.9% sodium chloride and administer each 40 mg vial over at least 2 minutes. * 0749 (Given - Provider: Didi Gipson RN) * 0839 ([facility] Hold - Provider: [facility] Autohold - Reason: Unreviewed Transfer Orders) * 1325 ([facility] Unhold - Provider: Didi M Brandan, RN) * 0759 (Given - Provider: Chan Galvin, RN) * 0958 (Given - Provider: Chan Galvin, RN) piperacillin-tazobactam (ZOSYN) 3,375 mg in sodium chloride 0.9 % 50 mL IVPB (addEASE) () 3,375 mg, IntraVENous, EVERY 8 HOURS, 24 doses, First dose on Tue03/22/25 at 1945, Last dose on Tue03/30/25 at 2000, Antimicrobial Indications: Intra- Abdominal Infection, Use 20mm (GREEN) addEASE Adapter Prep Instructions: Attach medication vial to one 20mm (GREEN) addEASE adapter. Roberto fluid bag with adapter, mix, and administer per order. * 0026 (Rate/Dose Verify - Provider: Giovanny El RN) * 0050 (Stopped - Provider: Giovanny El RN) * 0411 (New Bag - Provider: Giovanny El, RN) * 0811 (Stopped - Provider: Didi Gipson, RN) * 0839 ([facility] Hold - Provider: Mar Autohold - Reason: Unreviewed Transfer Orders) * 1023 (Canceled Entry - Provider: Carmela Lopez APRN - SALES AND SERVICE REPRESENTATIVE) * 1200 (Not Given - Provider: Didi Gipson RN - Reason: Other - Comment: given in or) * 1325 ([facility] Unhold - Provider: Didi Gipson, RN) * 2050 (New Bag - Provider: Stacey Chandra, RN) * 0052 (Stopped - Provider: Chan Galvin, RN) * 0213 (Stopped - Provider: Stacey Chandra, RN) * 0358 (New Bag - Provider: Stacey Chandra, RN) * 0758 (Stopped - Provider: Chan Galvin, RN) * 1309 (New Bag - Provider: Chan Galvin, RN) * 1529 (Paused - Provider: Chan Galvin, RN) * 1549 (Restarted - Provider: Chan Galvin, RN) * 1616 (Rate/Dose Verify - Provider: Chan Galvin, RN) * 1733 (Stopped - Provider: Chan Galvin, RN) * 1813 (Stopped - Provider: Chan Galvin, RN) * 2009 (New Bag - Provider: Stacey Chandra, RN) * 0116 (Stopped - Provider: Stacey Chandra RN) potassium chloride (KLOR-CON M) extended release tablet 20 mEq 20 mEq, Oral, DAILY, First dose on 03/23/25 at 1345, Until Discontinued, Do not crush, chew, orsuck on tablet. Tablet may also be broken in half and each half swallowed separately. * 0731 (Not Given - Provider: Didi Gipson RN - Reason: Pt NPO) * 0839 ([facility] Hold - Provider: Lacey Autohold - Reason: Unreviewed Transfer Orders) * 1325 ([facility] Unhold - Provider: Didi Gipson RN) * 0759 (Given - Provider: Chan Galvin RN) * 0958 (Given - Provider: Chan Galvin RN) potassium chloride (KLOR-CON M) extended release tablet 40 mEq (COMPLETED) 40 mEq, Oral, ONCE, 1 dose, On 03/30/25 at 1130, Do not crush, chew, or suck on tablet. Tablet may also be broken in half and each half swallowed separately. * 1127 (Given - Provider: Chan Galvin RN) sodium chloride flush 0.9 % injection 5-40 mL 5-40 mL, IntraVENous, EVERY 12 HOURS SCHEDULED (2 times per day), First dose on Tue03/22/25 at 2100, Until Discontinued, For Line Patency: Peripheral IV = 5 mL; Midline or Central Line = 10 mL/lumen. If following IV push medication, administer flush at same rate as the IV push. Flush volume is determined by type of infusion therapy being given. For non-viscous solutions use: Peripheral IV = 5 mLMidline or Central Line = 10 mL/lumen For viscous solutions (i.e. blood components, parenteral nutrition, contrast media, or after obtaining blood sample) use: Peripheral IV = 10 mL Midline or Central Line = 20 mL/lumen * 0749 (Given - Provider: Didi Gipson RN) * 0839 ([facility] Hold - Provider: Lacey Autohold - Reason: Unreviewed Transfer Orders) * 1325 ([facility] Unhold - Provider: Didi Gipson RN) * 205 (Given - Provider: Stacey Chandra RN) * 0800 (Given - Provider: Chan Galvin, RN) * 2010 (Given - Provider: Stacey Chandra RN) * 100 (Given - Provider: Chan Galvin, MARIAJOSE) Medication Order// 0.9 % sodium chloride infusion IntraVENous, at 5-250 mL/hr, PRN, if patient receiving piggyback infusions and maintenance fluids are not ordered OR KVO fluids to protect IV site / prevent frequent line interruptions/ long duration, Starting on Tue03/22/25 at 1927, For piggyback infusion, administer at same rate as piggyback fora total of 25 mL. Enter 25 mL into dose field and piggyback rate into rate field of order. If piggyback is infusing at a rate less than 100 mL/hr, enter 25 mL into dose field and 100 mL/hr into rate field of order. For KVO fluids, enter rate of 20 mL/hr or less into rate field of order. * 0839 ([facility] Hold - Provider: Lacey Autohold - Reason: Unreviewed Transfer Orders) * 1325 ([facility] Unhold - Provider: Didi Gipson, MARIAJOSE) acetaminophen (TYLENOL) suppository 650 mg(Linked Group 1) 650 mg, Rectal, EVERY 6 HOURS PRN, Starting on Tue03/22/25 at 192, Until 03/31/25 at 191, Pain Mild (1-3) OR per patient request for pain score (4-10), Fever, For temp greater than 100.4 F (38C), Administer if oral route cannot be used. * 0839 ([facility] Hold - Provider: Lacey Autohold - Reason: Unreviewed Transfer Orders) * 1325 ([facility] Unhold - Provider: Didi Gipson, MARIAJOSE) acetaminophen (TYLENOL) tablet 650 mg(Linked Group 1) 650 mg, Oral, EVERY 6 HOURS PRN, Starting on Tue03/22/25 at 192, Until Tue03/31/25 at 191, PainMild (1-3) OR per patient request for pain score (4-10), Fever, For temp greater than 100.4 F (38 C), Maximum dose of acetaminophen is 4000 mg from all sources in 24 hours. * 0839 ([facility] Hold - Provider: Lacey Autohold - Reason: Unreviewed Transfer Orders) * 1325 ([facility] Unhold - Provider: Didi Gipson, MARIAJOSE) ALPRAZolam (XANAX) tablet 0.25 mg 0.25 mg, Oral, 3 TIMES DAILY PRN, Starting on 03/30/25 at 1102, Until 03/31/25 at 1911, Anxiety * 1127 (Given - Provider: Chan Galvin, MARIAJOSE) aluminum & magnesium hydroxide-simethicone (MAALOX PLUS) 200-200-20 MG/5ML suspension 30 mL 30 mL, Oral, EVERY 6 HOURS PRN, Starting on 03/23/25 at 1947, Until 03/31/25 at 1911, Indigestion * 0839 ([facility] Hold - Provider: [facility] Autohold - Reason: Unreviewed Transfer Orders) * 1325 ([facility] Unhold - Provider: Didi Gipson, RN) bisacodyl (DULCOLAX) suppository 10 mg 10 mg, Rectal, DAILY PRN, Starting on Tue03/27/25 at 1848, Until 03/31/25 at 1911, Constipation * 0839 ([facility] Hold - Provider: [facility] Autohold - Reason: Unreviewed Transfer Orders) * 1325 ([facility] Unhold - Provider: Didi Gipson, MARIAJOSE) BUPivacaine-EPINEPHrine PF (MARCAINE-w/EPINEPHrine) 0.5% -[id number] injection (CANCELED) PRN, Starting on Tue03/29/25 at 1026, Until Tue03/29/25 at 1150, Intra-op * 1026 (Given - Provider: Manjula Sue MD - Comment: INJECTED AT [facility]) calcium carbonate (TUMS) chewable tablet 500 mg 500 mg, Oral, 3 TIMES DAILY PRN, Starting on 03/23/25 at 1946, Until 03/31/25 at 1911, Heartburn * 0839 ([facility] Hold - Provider: [facility] Autoh[employer] - Reason: Unreviewed Transfer Orders) * 1325 ([facility] Unhold - Provider: Didi Gipson, MARIAJOSE) HYDROmorphone (DILAUDID) injection 0.25 mg 0.25 mg, IntraVENous, EVERY 3 HOURS PRN, Starting on Tue03/22/25 at 2014, Until Tue03/31/25 at 1911, Pain Moderate (4-6) OR per patient request for pain score (7-10), Pain Severe (7-10), If oral and IV narcotics ordered, use oral first and only use IV if oral is ineffective or cannot take oral. Do Not give oral and IV within 1 hour of each other unless specifically ordered. Please hold for lethargy or respiratory rate <12b/m * 0615 (Given - Provider: Giovanny El RN) * 0839 ([facility] Hold - Provider: [facility] Autoh[employer] - Reason: Unreviewed Transfer Orders) * 1325 ([facility] Unhold - Provider: Didi Gipson, MARIAJOSE) * 0759 (Given - Provider: Chan Galvin RN) HYDROmorphone (DILAUDID) injection 0.5 mg (CANCELED) 0.5 mg, IntraVENous, EVERY 5 MIN PRN, 2 doses, Starting on Tue03/29/25 at 1211, Until Tue03/29/25at 1324, Pain Severe (7-10), For Phase I. If Phase II oral narcotics have been administered in the last 60 minutes, do not administer IV narcotics unless specifically approved by provider., PACU only * 1217 (Given - Provider: Cris Chahal RN) magnesium sulfate 2000 mg in 50 mL IVPB premix 2,000 mg, IntraVENous, at 25 mL/hr, Administer over 2 Hours, PRN, Other, Per Magnesium IV Replacement Protocol, Starting on Tue03/25/25 at 1119, Mag Lab Replacement Action 1.4-1.6 mg/dL 2,000 mg Total Dose Given as 1,000 mg IVPB x 2 doses or 2,000 mg IVPB x 1 dose 1.0-1.3 mg/dL 4,000 mg Total DoseGiven as 1,000 mg IVPB x 4 doses or 2,000 mg IVPB x 2 doses <1.0 mg/dL CALL PHYSICIAN and give 4,000 mg Total Dose Given as 1,000 mg IVPB x 4 doses or 2,000 mg IVPB x 2 doses Infuse at 1,000 mg/hrconsecutively Repeat Mag level next AM Protocol not for use in Patients with CrCl<30ml/min * 0839 ([facility] Hold - Provider: [facility] Autohold - Reason: Unreviewed Transfer Orders) * 1325 ([facility] Unhold - Provider: Didi Gipson RN) melatonin tablet 10 mg 10 mg, Oral, NIGHTLY PRN, Starting on Tue03/22/25 at 2016, Until Tue03/31/25 at 1911, sleep * 0839 ([facility] Hold - Provider: [facility] Autoh[employer] - Reason: Unreviewed Transfer Orders) * 1325 ([facility] Unhold - Provider: Didi Gipson, RN) * 2215 (Given - Provider: Stacey Chandra, RN) * 2114 (Given - Provider: Stacey Chandra, RN) midazolam PF (VERSED) IntraVENous 2 mg (COMPLETED) 2 mg, IntraVENous, ONCE PRN, 1 dose, Starting on Tue03/29/25 at 1211, Until Tue03/29/25 at 1223, Anxiety, PACU only * 1223 (Given - Provider: Cris Chahal RN) ondansetron (ZOFRAN) injection 4 mg(Linked Group 2) 4 mg, IntraVENous, EVERY 6 HOURS PRN, Starting on Tue03/22/25 at 1928, Until Tue03/31/25 at 1911,Nausea, Vomiting, Administer if oral route cannot be used. * 0839 ([facility] Hold - Provider: [facility] Autoh[employer] - Reason: Unreviewed Transfer Orders) * 1325 ([facility] Unhold - Provider: Didi Gipson RN) * 1330 (See Alternative - Provider: Didi Gipson RN) ondansetron (ZOFRAN-ODT) disintegrating tablet 4 mg(Linked Group 2) 4 mg, Oral, EVERY 8 HOURS PRN, Starting on Tue03/22/25 at 1928, Until Tue03/31/25 at 1911, Nausea, Vomiting * 0839 ([facility] Hold - Provider: [facility] Autohold - Reason: Unreviewed Transfer Orders) * 1325 ([facility] Unhold - Provider: Didi Gipson, RN) * 1330 (Given - Provider: Didi Gipson RN) oxyCODONE-acetaminophen (PERCOCET) 5-325 MG per tablet 1 tablet 1 tablet, Oral, EVERY 4 HOURS PRN, Starting on Tue03/26/25 at 1204, Until Tue03/31/25 at 1911, Pain Severe (7-10), Maximum dose of acetaminophen is 4000 mg from all sources in 24 hours. * 0839 ([facility] Hold - Provider: [facility] Autohold - Reason: Unreviewed Transfer Orders) * 1325 ([facility] Unhold - Provider: Didi Gipson, RN) * 1330 (Given - Provider: Ddii Gipson, RN) * 1821 (Given - Provider: Didi Gipson, RN) * 2216 (Given - Provider: Stacey Chandra, RN) * 0603 (Given - Provider: Stacey Chandra, RN) * 1127 (Given - Provider: Chan Galvin, RN) * 1700 (Given - Provider: Chan Galvin, RN) * 2114 (Given - Provider: Stacey Chandra, RN) * 0138 (Given - Provider: Monica Arvizu, MARIAJOSE) * 0619 (Given - Provider: Stacey Chandra, RN) * 1306 (Given - Provider: Chan Galvin, RN) polyethylene glycol (GLYCOLAX) packet 17 g 17 g, Oral, DAILY PRN, Starting on Tue03/29/25 at 2207, Until 03/31/25 at 191, Constipation, Stir and dissolve one packet of powder (17 g) in any 4 to 8 ounces of beverage (cold, hot or room temperature) then drink * 2220 (Given - Provider: Stacey Chandra, MARIAJOSE) potassium bicarb-citric acid (EFFER-K) effervescent tablet 40 mEq(Linked Group 3) 40 mEq, Oral, PRN, Starting on Tue03/22/25 at 1928, Until 03/31/25 at 191, Per Potassium Replacement Protocol, Administer as alternative if patient unable to tolerate oral tablet. K Lab Replacement Action 3.1 to 3.5 40 mEq ORAL x 1 Under 3.1 Refer to IV replacement protocol Recheck K level Brandon. Protocol not for use in patients with CrCl lessthan 30 mL/min. Do not chew or crush. Dissolve flavored tablets completely in 3 to 4 ounces of cold water; unflavored tablets may be dissolved in 3 to 4 ounces of cold juice. Patient to sip slowly over a 5 to 10 minute period. May further dilute ifGI adverse effects occur. * 0839 ([facility] Hold - Provider: [facility] - Reason: Unreviewed Transfer Orders) * 1325 ([facility] Unhold - Provider: Didi Gipson RN) potassium chloride (KLOR-CON M) extended release tablet 40 mEq(Linked Group 3) 40 mEq, Oral, PRN, Starting on Tue03/22/25 at 1928, Until Tue03/31/25 at 191, Potassium Replacement, May give alternative linked oral order (ordered as effervescent, packet, or liquid solution) ifpatient unable to tolerate tablet. K Lab Replacement Action 3.1 to 3.5 40 mEq ORAL x 1 Under 3.1 Refer to IV replacement protocol Recheck K level in AM. Protocol not for use in patients with CrCl less than 30 mL/min. Do not crush, chew, or suck on tablet. Tablet may also be broken in half and each half swallowed separately. * 0839 ([facility] Hold - Provider: Lacey Autohold - Reason: Unreviewed Transfer Orders) * 1325 ([facility] Unhold - Provider: Didi Gipson RN) potassium chloride 10 mEq/100 mL IVPB (Peripheral Line)(Linked Group 3) 10 mEq, IntraVENous, PRN, Starting on Tue03/22/25 at 192, Until Tue03/31/25 at 1910, at 100 mL/hr, Other, Potassium Replacement, K Lab Replacement Action 2.7 to 3.0 10 mEq IVPB x 6 doses (60 mEq Total) Under 2.7 CALL PROVIDER and administer 10 mEq IVPB x 6 doses (60 mEq Total) Infuse at 10 mEq/hr consecutively. Repeat Potassium lab 1 hour after final administration., Protocol not for use in patients with CrCl less than 30 mL/min. * 0839 ([facility] Hold - Provider: Lacey Autohold - Reason: Unreviewed Transfer Orders) * 1325 ([facility] Unhold - Provider: Didi Gipson RN) rOPINIRole (REQUIP) tablet 0.25 mg 0.25 mg, Oral, NIGHTLY PRN, Starting on Tue03/22/25 at 2016, Until Tue03/31/25 at 191, Restless legs * 0839 ([facility] Hold - Provider: Lacey Autohold - Reason: Unreviewed Transfer Orders) * 1325 ([facility] Unhold - Provider: Didi Gipson RN) * 221 (Given - Provider: Stacey Chandra, MARIAJOSE) * 2113 (Given - Provider: Stacey Chandra, MARIAJOSE) sod chloride IRR soln 0.9 % irrigation (CANCELED) CONTINUOUS PRN, Starting on Tue03/29/25 at 0945, Intra-op * 0945 (New Bag - Provider: Manjula Sue MD - Comment: POURED TO BACK TABLE) * 1045 (New Bag - Provider: Manjula Sue MD - Comment: HANGING FOR SUCTION EVENTS MANAGER) * 1136 (New Bag - Provider: Manjula Sue MD - Comment: HANGING) * 1150 (Stopped - Provider: Didi Gipson, RN - Comment: [Order ends at this time. Document the following action when infusion is complete: Stopped]) sodium chloride flush 0.9 % injection 10 mL 10 mL, IntraVENous, PRN, Starting on Tue03/22/25 at 1928, Until Tue03/31/25 at 191, Line Care, After every IV line use * 0839 ([facility] Hold - Provider: [facility] [employer] - Reason: Unreviewed Transfer Orders) * 1325 ([facility] Unhold - Provider: Didi Gipson, RN) sodium chloride flush 0.9 % injection 10 mL 10 mL, IntraVENous, PRN, Starting on Tue03/24/25 at 0855, Until Tue03/31/25 at 1911, Line Care * 0839 ([facility] Hold - Provider: [facility] [employer] - Reason: Unreviewed Transfer Orders) * 1325 ([facility] Unhold - Provider: Didi Gipson, RN) Order Group 1: acetaminophen (TYLENOL) tablet 650 mgJump to med 650 mg, Oral, EVERY 6 HOURS PRN, Starting on Tue03/22/25 at 1928, Until Tue03/31/25 at 191, PainMild (1-3) OR per patient request for pain score (4-10), Fever, For temp greater than 100.4 F (38 C), Maximum dose of acetaminophen is 4000 mg from all sources in 24 hours. Or acetaminophen (TYLENOL) suppository 650 mgJump to med 650 mg, Rectal, EVERY 6 HOURS PRN, Starting on Tue03/22/25 at 1928, Until 03/31/25 at 191, Pain Mild (1-3) OR per patient request for pain score (4-10), Fever, For temp greater than 100.4 F (38C), Administer if oral route cannot be used. Group 2: ondansetron (ZOFRAN-ODT) disintegrating tablet 4 mgJump to med 4 mg, Oral, EVERY 8 HOURS PRN, Starting on Tue03/22/25 at 192, Until Tue03/31/25 at 1910, Nausea, Vomiting Or ondansetron (ZOFRAN) injection 4 mgJump to med 4 mg, IntraVENous, EVERY 6 HOURS PRN, Starting on Tue03/22/25 at 1927, Until Tue03/31/25 at 1910,Nausea, Vomiting, Administer if oral route cannot be used. Group 3: potassium chloride (KLOR-CON M) extended release tablet 40 mEqJump to med 40 mEq, Oral, PRN, Starting on Tue03/22/25 at 1927, Until Tue03/31/25 at 1910, Potassium Replacement, May give alternative linked oral order (ordered as effervescent, packet, or liquid solution) ifpatient unable to tolerate tablet. K Lab Replacement Action 3.1 to 3.5 40 mEq ORAL x 1 Under 3.1 Refer to IV replacement protocol Recheck K level in AM. Protocol not for use in patients with CrCl less than 30 mL/min. Do not crush, chew, or suck on tablet. Tablet may also be broken in half and each half swallowed separately. Or potassium bicarb-citric acid (EFFER-K) effervescent tablet 40 mEqJump to med 40 mEq, Oral, PRN, Starting on Tue03/22/25 at 192, Until Tue03/31/25 at 1910, Per Potassium Replacement Protocol, Administer as alternative if patient unable to tolerate oral tablet. K Lab Replacement Action 3.1 to 3.5 40 mEq ORAL x 1 Under 3.1 Refer to IV replacement protocol Recheck K level Brandon. Protocol not for use in patients with CrCl lessthan 30 mL/min. Do not chew or crush. Dissolve flavored tablets completely in 3 to 4 ounces of cold water; unflavored tablets may be dissolved in 3 to 4 ounces of cold juice. Patient to sip slowly over a 5 to 10 minute period. May further dilute ifGI adverse effects occur. Or potassium chloride 10 mEq/100 mL IVPB (Peripheral Line)Jump to med 10 mEq, IntraVENous, PRN, Starting on Tue03/22/25 at 1928, Until 03/31/25 at 1911, at 100 mL/hr, Other, Potassium Replacement, K Lab Replacement Action 2.7 to 3.0 10 mEq IVPB x 6 doses (60 mEq Total) Under 2.7 CALL PROVIDER and administer 10 mEq IVPB x 6 doses (60 mEq Total) Infuse at 10 mEq/hr consecutively. Repeat Potassium lab 1 hour after final administration., Protocol not for use in patients with CrCl less than 30 mL/min. documented in this encounter Additional Health Concerns InfectionOnset DateLast IndicatedResolved TimeC-diff Rule Out03/23/2025 8:39 AM EDTdocumented as of this encounter Care Teams Team MemberRelationshipSpecialtyStart DateEnd Sudhir Gonzalez MD [address] [place] [address] PCP - GeneralFamily Eubpafbm26/10/25documented as of this encounter
--- OUTSIDE RECORDS SUMMARY | 2025-03-25 09:24 | XMS_ITS | Encounter Summary ---
Author Organization [facility] Weddingful [facility] Address [address], [address] [place] [address] Care Team Providers Care Front Line Supervisor Name Role Phone Sudhir [place] MD Primary Care Provider [phone] Reason for Visit * Auth/CertSpecialtyDiagnoses / ProceduresReferred By ContactReferred To Contact Diagnoses Acute cholecystitis [facility] [address]A [address]down [address] [place] [address] Phone: tel: [facility] [address] [place] [address] Referral IDStatusReasonStart DateExpiration DateVisits RequestedVisits [id number] Encounter Details DateTypeDepartmentCare Team (Latest Contact Info)Fxfbgoiwozv30/13/2025 9:24 AM EDT - 03/25/2025 10:12 AM EDTSurgery [facility] Endoscopy [address] [place] [address] Dimas Andujar MD [address] [facility] [address] [facility] [address] [place] [address] ESOPHAGOGASTRODUODENOSCOPY BIOPSY Surgery Details Date/TimeStatusLocationORServicePatient ClassCase ClassCase TypeTrauma Case? 03/25/2025 9:24 AMPostedSTVZ ENDOSCOPYENDO 02GastroenterologyInpatientElectiveNo Panel 1 ProcedureLRBAnesOp RegionWound ClassCommentsESOPHAGOGASTRODUODENOSCOPY BIOPSYN/AMonitor Anesthesia CareClass II Clean Contaminated COLONOSCOPY POLYPECTOMY SNARE/BIOPSYN/AMonitor Anesthesia CareClass II Clean Contaminated COLONOSCOPY BIOPSYClass II Clean Contaminated SurgeonSurgeon RoleServiceDimas Ramos AVArimaryGastroenterology1 documented in this encounter Social History Tobacco UseTypesPacks/DayYears UsedDateSmoking Tobacco: Every HyzRuhhhhkoxf897.4 Started: 11/1995 Tobacco Cessation:Ready to Q uit: [...] RecordedIn the past 12 months has the FOODit, gas, oil, or water [employer] threatened to shut off services in your home?No03/22/2025Interpersonal Safety Domain Source: IP Abuse ScreeningAnswerDate RecordedPhysical esxhnPnzlie29/13/2025Verbal abuseDenies 03/25/2025Emotional kkkmdWnohpk37/13/2025Financial gjjdyZyjahr47/13/2025Sexual pwehzBkwrlo04/13/2025CommentsUnknownSex and Gender InformationValueDate RecordedSex Assigned at BirthNot on fileLegal GdtBvqtgs72/10/2025 3:15 PM EDT Gender IdentityNot on fileSexual OrientationNot on filedocumented as of this encounter Last Filed Vital Signs Vital SignReadingTime TakenCommentsBlood Sdxbmvqc043/7210 7:57 AM EDT Vtiyp468903/25/2025 7:57 AM KPTNgesdrvcqya06.7 ??C (98.1 ??F)03/25/2025 7:57 AM EDTRespiratory Ojld7982 7:57 AM EDTOxygen Kltdhcyidg011%03/25/2025 7:57 AM EDTInhaled Oxygen Concentration--Mrkgjn37.1 kg (119 lb 4.3 oz)03/22/2025 7:31 PM ECVDhmanx599.2 cm (5' 7.01 )03/24/2025 11:00 AM EDTBody Mass Index18.68 03/22/2025 7:31 PM EDTdocumented in this encounter Discharge Summaries * Marvel Ng MD - 03/31/2025 9:09 AM EDT Images from the original note were not included. [facility] Office: [phone] Marquez Scott DO, Garth Casanova DO, Kenny [...] Bustillos MD, Berry Holder MD, [place] Causey, BOILERS INSPECTOR, Za Del Valle, BOILERS INSPECTOR, Jarred Sandoval, [facility], Declan [facility], Gabby Epstein, BOILERS INSPECTOR, Carmen Pack, BOILERS INSPECTOR, Amber Del Toro, BOILERS INSPECTOR, Lula Alvarado, [facility], Julia Ortiz, [facility], Linda Guidry, BOILERS INSPECTOR, Lillie Gipson, BOILERS INSPECTOR, Magaly Lind, BOILERS INSPECTOR, Ni Rodriguez, BOILERS INSPECTOR, KASH SueroC, KASH LynchC, Shivani Díaz, [facility], Lily Esteves, [facility], Tracy Richardson, [facility], Carmela Wills, [facility], Sheila Smith, [facility], Kate Macias, [facility], Jeanie Fox, [facility] IN-PATIENT SERVICE [facility] Discharge Summary Patient ID: Eneida Mejia : 1975 ACCOUNT: [id number] Patient's PCP: Sudhir [place] MD Admit Date: [...] alcohol abuse presented as a transfer from [facility] for management of acute cholecystitis and concern [...] Home Physician Follow Up: Dimas Andujar MD [facility] [place] [address] Follow up in 2 week(s) Diet: regular [...] Medications These medications were sent to [facility] - [place], [place] - [address] [place] - P [phone] - F [phone] [facility] [place] [address] midodrine 5 MG tablet oxyCODONE-acetaminophen 5-325 MG [...] MG tablet Take 1 tablet by mouth xajpegi6101/10/2025 oxyCODONE-acetaminophen (PERCOCET) 5-325 MG per tablet Indications:Common bile duct stricture (HCC)Take 1 tablet by mouth every 4 hours as needed for Pain for up to 5 days. Max Daily Amount: 6 tablets 15 tablet documented as of this encounter Progress Notes * Isaias Monae, DO - 03/31/2025 6:58 AM EDT Images from the original note were not included. PROGRESS NOTE PATIENT NAME: Eneida Engelgo DATE: 03/31/2025 Hospital Day: # 9 DIAGNOSIS [...] acute events overnight. States that she is thaw shed heater tender at her incision sites, however, states that [...] CDI. Dermabond intact. LAB: CBC: Recent Labs 03/29/2562303/30/2562503/31/25528 WBC 8.6 10.3 7.8 HGB 9.1* 9.3* 9.6* HCT 29.6* 30.0* 30.5* MCV 121.3* 119.5* 118.2* PLT 253 275 276 BMP: Recent Labs 03/29/2562303/30/2562503/31/25 05 NA 133* 135* 136 K 4.2 3.2* [...] confirmed. Dispo planning S. Abad Chino MD, [facility] Acute Care Surgery Attending [facility] * Marvel Ng MD - 03/30/2025 11:06 AM EDT Images from the original note were not included. [facility] Office: [phone] Marquez Scott DO, Garth Casanova DO, Kenny [...] Bustillos MD, Berry Holder MD, [place] Causey, BOILERS INSPECTOR, Za Del Valle, BOILERS INSPECTOR, Jarred Sandoval, BOILERS INSPECTOR, Declan, [facility], Gabby Epstein, BOILERS INSPECTOR, Carmen Pack, BOILERS INSPECTOR, Amber Del Toro, BOILERS INSPECTOR, Lula Alvarado, BOILERS INSPECTOR, Julia Ortiz, PA-C, Linda Guidry, BOILERS INSPECTOR, Lillie Gipson, BOILERS INSPECTOR, Magaly Lind, BOILERS INSPECTOR, Ni Rodriguez, BOILERS INSPECTOR, Shaun Cabrales, PA-C, Danica Hernandez, PA-C, Shivani Díaz, BOILERS INSPECTOR, Lily Esteves, BOILERS INSPECTOR, Tracy Richardson, BOILERS INSPECTOR, Carmela Wills, [facility], Sheila Smith, BOILERS INSPECTOR, Kate Macias, BOILERS INSPECTOR, Jeanie Fox, BOILERS INSPECTOR [facility] IN-PATIENT SERVICE [facility] Progress Note 03/30/2025 11:06 AM Name: Eneida Mejia Acct: [id number] Room: 0503/0503-01 Day: 8 Admit Date: 03/22/2025 7:27 PM PCP: Sudhir [place] MD Code Status: Full Code Subjective: C/C: N/V/Abd pain/diarrhea Interval History Status: Not changed S/p ROBOTIC LAPAROSCOPIC CHOLECYSTECTOMY on 03/29 Still complaining of abdominal pain today 12/20, denies any other complaint Lab vital sign rewards consultant note reviewed Discussed with RN at bedside Brief History: 49-year-old female with history of breast cancer status post left lumpectomy status post tamoxifen treatment, nicotine dependence and alcohol abuse presented as a transfer from [facility] for management of acute cholecystitis and concern [...] Recent Labs 03/27/25 1126 03/29/25 0624 03/30/25 0626 WBC 12.0* 8.6 10.3 RBC 2.54* 2.44* 2.51* HGB 9.7* 9.1* 9.3* HCT 30.9* 29.6* 30.0* MCV 121.7* 121.3* 119.5* MCH 38.2* 37.3* 37.1* MCHC 31.4 30.7 31.0 RDW 13.7 13.3 13.2 PLT 293 253 275 MPV 11.1 11.3 11.8 Chemistry: Recent Labs 03/27/25 1455 03/29/25 0624 03/30/25 0626 NA 132* 133* 135* K 4.1 4.2 [...] , PHART , PH , POCPCO2 , SOD1IVZ , PCO2 , POCPO2 , PO2ART , PO2 , POCHCO3 , XOS6SVM , HCO3 , NBEA , PBEA , BEART , BE , THGBART , THB , IMU2BJZ , KJNC0HYB , O5MKMXZF , O2SAT , FIO2 No results found [...] Marvel Ng MD 03/30/2025 11:06 AM * Fred Tracy DO - 03/30/2025 7:25 AM EDT Images from the original note were not included. PROGRESS NOTE PATIENT NAME: Eneida Mejia DATE: 03/30/2025 Hospital Day: # 8 DIAGNOSIS [...] with cholelithiasis, raising the possibility of cholecystitis. Fred Tracy DO 03/30/2025, 7:25 AM Cosigned by Brad Chino MD at 03/30/2025 8:45 PM EDT Associated attestation - Brad Chino MD - 03/30/2025 8:45 PM EDT I personally examined the patient, directed the medical decision-making, and am in agreement with the Resident/JAMILA after the physical/radiologic exam and laboratory values were reviewed and confirmed. Emmy Chino MD, [facility] Acute Care Surgery Attending [facility] * Mary Roth, RD - 03/29/2025 2:47 PM EDT Nutrition [...] Pt preference. Pt currently with hamburger and faroese fries on her lunch tray, and states she has been working on this for about an hour, though it appears very little has been consumed. This securities underwriter did encourage low fat meals/snacks and verbally [...] and IMAGING: CBC Recent Labs 03/27/25 1126 03/29/25623 WBC 12.0* 8.6 HGB 9.7* 9.1* HCT 30.9* 29.6* MCV 121.7* 121.3* MCHC 31.4 30.7 RDW 13.7 13.3 PLT 293 253 Immature PLTs No results found for: PLTFLUORE PT/INR No results for input(s): PROTIME , INR in the last 72 hours. ANEMIA STUDIES No results for input(s): IRONPERSAT , TIBC , IRON , FERRITIN , OPAXXRBG16 , FOLATE , OCCULTBLD in the last [...] flow across the ampulla. Therefore a 10 Bermudian by 7 cm plastic biliary stent was [...] to ensure the accuracy of this automated cylinder loader, some errors in cylinder loader may have occurred. * Marvel Ng MD - 03/29/2025 11:07 AM EDT Images from the original note were not included. [facility] Office: [phone] Marquez Scott DO, Garth Casanova DO, Kenny [...] Bustillos MD, Berry Holder MD, [place] Causey, BOILERS INSPECTOR, Za Del Valle, BOILERS INSPECTOR, Jarred Sandoval, [facility], Declan, [facility], Gabby Epstein, BOILERS INSPECTOR, Carmen Pack, BOILERS INSPECTOR, Amber Del Toro, BOILERS INSPECTOR, Lula Alvarado, BOILERS INSPECTOR, Julia Ortiz, PA-C, Linda Guidry, BOILERS INSPECTOR, Lillie Gipson, BOILERS INSPECTOR, Magaly Lind, BOILERS INSPECTOR, Ni Rodriguez, [facility], Shaun Cabrales, PA-C, Danica Hernandez, PA-C, Shivani Díaz, [facility], Lily Esteves, [facility], Tracy Richardson, [facility], Carmela Wills, [facility], Sheila Smith, [facility], Kate Macias, [facility], Jeanie Fox, [facility] IN-PATIENT SERVICE [facility] Progress Note 03/29/2025 11:08 AM Name: Eneida Mejia Acct: [id number] Room: [facility] Day: 7 Admit Date: 03/22/2025 7:27 PM PCP: Sudhir [place] MD Code Status: Full Code Subjective: C/C: N/V/Abd pain/diarrhea Interval History Status: Not changed S/p ROBOTIC LAPAROSCOPIC CHOLECYSTECTOMY on 03/29 She was seen after the procedure eating her food, no report pain 12/20 in severity denies any other complaint Lab vital sign rewards consultant note reviewed Discussed with RN at bedside Brief History: 49-year-old female with history of breast cancer status post left lumpectomy status post tamoxifen treatment, nicotine dependence and alcohol abuse presented as a transfer from [facility] for management of acute cholecystitis and concern [...] , PHART , PH , POCPCO2 , KRA2THR , PCO2 , POCPO2 , PO2ART , PO2 , POCHCO3 , SHJ8WWS , HCO3 , NBEA , PBEA , BEART , BE , THGBART , THB , RAK6FBF , NYFJ3WNL , H0LBWYAA , O2SAT , FIO2 No results found [...] PROGRESS NOTE PATIENT NAME: Eneida Mejia DATE: 03/29/2025 Hospital Day: # 7 DIAGNOSIS [...] Andujar MD - 03/28/2025 3:46 PM EDT [facility] Gastroenterology Progress Note Eneida Mejia is a [...] Severe loss of signal intensity seen on qga-lj-dbahl imaging consistent with severe hepatic steatosis. Mild [...] 293 ANEMIA STUDIES: Recent Labs 03/25/25 1559 SMWGYUDU60 >2000* FOLATE 25.5* BMP: Recent Labs 03/26/25 [...] flow across the ampulla. Therefore a 10 B[place]udian by 7 cm plastic biliary stent was [...] contact me with any questions or concerns. [facility]enter[facility] Reba [place] PA-C [phone] 03/28/2025 3:46 PM Attending Physician Attestation: I have discussed the care of Eneida Mejia and I have examined the patient myselft and taken ros and hpi , including pertinent history and exam findings, with the author of this note . I have reviewed the lei elements of all parts of the encounter with the nurse practitioner/resident. I agree withthe assessment, plan and orders as documented by the above health care provider with the following addendum. More than 50% of the time was spent taking care of this patient in addition to the nurse practitioner time. That also included history taking follow-up physical examination and review of system. * Fred Tracy, - 03/28/2025 1:18 PM EDT General Surgery [...] user, and alcohol drinker who presented from [facility] on 03/22/2025 for elevated bilirubin and CT demonstrating CBD dilation and gallbladder wall thickening concerning for acute cholecystitis. Patient beto cross presented with generalized abdominal pain, several weeks [...] Severe loss of signal intensity seen on ayp-jc-xhcrw imaging consistent with severe hepatic steatosis. Mild [...] with cholelithiasis, raising the possibility of cholecystitis. Fred Tracy DO 03/28/2025, 1:18 PM Cosigned by [...] from the original note were not included. [facility] Office: [phone] Marquez Scott DO, Garth Casanova DO, Kenny [...] MD, [place] Causey, GABRIEL, Za Del Valle CNP, Jarrde Sandoval CNP, TAI Manriquez, Gabby Epstein, BOILERS INSPECTOR, Carmen Pack, BOILERS INSPECTOR, Amber Del Toro, BOILERS INSPECTOR, Lula Alvarado, BOILERS INSPECTOR, Julia Ortiz PA-C, Linda Guidry, BOILERS INSPECTOR, Lillie Gipson BOILERS INSPECTOR, Magaly Lind, BOILERS INSPECTOR, iN Rodriguez, BOILERS INSPECTOR, Shaun Cabrales PA-C, Danica Hernandez PAMirellaC, Shivani Díaz, BOILERS INSPECTOR, Lily Esteves, BOILERS INSPECTOR, Tracy Richardson, BOILERS INSPECTOR, Carmela Wills, EXPERIMENTAL MECHANIC ELECTRICAL, Sheila Smith, BOILERS INSPECTOR, Kate Macias, BOILERS INSPECTOR, Jeanie Fox, BOILERS INSPECTOR [facility] IN-PATIENT SERVICE [facility] Progress Note 03/28/2025 10:52 AM Name: Eneida Mejia Acct: [id number] Room: [address] [place], [place] [id number] Day: 6 Admit Date: 03/22/2025 7:27 PM PCP: Sudhir [place] MD Code Status: Full Code Subjective: C/C: N/V/Abd pain/diarrhea Interval History Status: Not changed Patient was seen and examined, she was seen eating her breakfast, continues to report abdominal pain however she reports her pain is better compared with yesterday Lab vital sign rewards consultant note reviewed Discussed with RN at bedside Brief History: 49-year-old female with history of breast cancer status post left lumpectomy status post tamoxifen treatment, nicotine dependence and alcohol abuse presented as a transfer from [facility] for management of acute cholecystitis and concern [...] , PHART , PH , POCPCO2 , ORB9NZC , PCO2 , POCPO2 , PO2ART , PO2 , POCHCO3 , PMX1IPN , HCO3 , NBEA , PBEA , BEART , BE , THGBART , THB , OTX9RAL , YNRP3UYZ , Z9TKNLCY , O2SAT , FIO2 No results found [...] Andujar MD - 03/27/2025 1:39 PM EDT [facility] Gastroenterology Progress Note Eneida Mejia is [...] Severe loss of signal intensity seen on ymr-fk-vccoh imaging consistent with severe hepatic steatosis. Mild [...] the possibility of cholecystitis. CBC: Recent Labs 03/25/2565003/26/2546 03/27/25 1126 WBC 11.8* 10.1 12.0* HGB 8.1* 8.4* 9.7* MCV 119.2* 120.0* 121.7* RDW 14.2 14.0 13.7 PLT 234 239 293 ANEMIA STUDIES: Recent Labs 03/25/2565003/25/25 1559 TIBC 105* -- FERRITIN 328* -- SRKUQHLA98 -- >2000* FOLATE -- 25.5* BMP: Recent [...] -- -- LFTS: Recent Labs 03/25/2565003/26/25 0000 03/26/2546 ALKPHOS 194* 219* 206* ALT 48* 52* [...] flow across the ampulla. Therefore a 10 Bermudian by 7 cm plastic biliary stent was [...] contact me with any questions or concerns. [facility] Gastroenterology Reba [place] PA-C [phone] 03/27/2025 1:39 PM Attending Physician Attestation: I [...] EDT Physician Progress Note PATIENT: ENEIDA MEJIA CSN #: [id number] : 1975 ADMIT DATE: 03/22/2025 7:27 PM [...] alcohol abuse presented as a transfer from [facility] for management of acute cholecystitis and concern [...] from the original note were not included. [facility] Office: [phone] Marquez Scott DO, Garth Casanova DO, Kenny [...] Bustillos MD, Berry Holder MD, [place] Causey, BOILERS INSPECTOR, Za Del Valle, BOILERS INSPECTOR, Jarred Sandoval, BOILERS INSPECTOR, Declan, [facility], Gabby Epstein, BOILERS INSPECTOR, Carmen Pack, BOILERS INSPECTOR, Amber Del Toro, BOILERS INSPECTOR, Lula Alvarado, BOILERS INSPECTOR, Julia Ortiz, PA-C, Linda Guidry, BOILERS INSPECTOR, Lillie Gipson, BOILERS INSPECTOR, Magaly Lind, BOILERS INSPECTOR, Ni Rodriguez, BOILERS INSPECTOR, Shaun Cabrales, PA-C, Danica Hernandez, PA-C, Shivani Díaz, BOILERS INSPECTOR, Lily Esteves, [facility], Tracy Richardson, BOILERS INSPECTOR, Carmela Wills, [facility], Sheila Smith, [facility], Kate Macias, [facility], Jeanie Fox, BOILERS INSPECTOR [facility] IN-PATIENT SERVICE [facility] Progress Note 03/27/2025 11:16 AM Name: Eneida Mejia Acct: [id number] Room: [address] [place] [address] Day: 5 Admit Date: 03/22/2025 7:27 PM PCP: Sudhir [place] MD Code Status: Full Code Subjective: C/C: N/V/Abd pain/diarrhea Interval History Status: Not changed Patient was seen and examined, she was seen eating her breakfast however she continued to report abdominal pain Status post ERCP done yesterday 03-26 Lab vital sign rewards consultant note reviewed Discussed with RN at bedside Brief History: 49-year-old female with history of breast cancer status post left lumpectomy status post tamoxifen treatment, nicotine dependence and alcohol abuse presented as a transfer from [facility] for management of acute cholecystitis and concern [...] Net 5256.24 ml Labs: Hematology: Recent Labs 03/25/25 0651 03/26/25 0646 WBC 11.8* 10.1 RBC 2.14* 2.20* HGB 8.1* 8.4* HCT 25.5* 26.4* MCV 119.2* 120.0* MCH 37.9* 38.2* MCHC 31.8 31.8 RDW 14.2 14.0 PLT 234 239 MPV 11.3 10.8 Chemistry: Recent Labs 03/25/25 0651 03/25/25 2016 03/26/25 0000 03/26/25 [...] CALCIUM 6.7* 6.9* 7.0* 7.1* Recent Labs 03/25/25 0651 03/26/25 0000 03/26/25 0646 AST 95* 96* 82* ALT 48* 52* 46* ALKPHOS 194* 219* 206* BILITOT 5.3* 5.8* 5.0* ABG:No results found for: POCPH , PHART , PH , POCPCO2 , UNW2IBG , PCO2 , POCPO2 , PO2ART , PO2 , POCHCO3 , MAT8ZGW , HCO3 , NBEA , PBEA , BEART , BE , THGBART , THB , KGS5CYS , HDNF8WHS , M0WSCHLI , O2SAT , FIO2 No results found [...] Sanchez RN - 03/26/2025 4:00 PM EDT City Clerk unable to complete 4pm assessment and vitals due to patient being off unit for ERCP. * Marvel Ng MD - 03/26/2025 12:05 PM EDT Images from the original note were not included. [facility] Office: [phone] Marquez Scott DO, Garth Casanova DO, Kenny [...] DO, Kingsley James MD, Francisco Licona MD, aTnia Bustillos MD, Manuel Bustillos MD, Berry Holder MD, [place] Causey, GABRIEL, Za Del Valle CNP, Jarred Sandoval CNP, TAI Manriquez, Gabby Epstein BOILERS INSPECTOR, Carmen Pack, BOILERS INSPECTOR, Amber Del Toro, BOILERS INSPECTOR, Lula Alvarado, BOILERS INSPECTOR, KASH HowellC, Linda Guidry CNP, Lillie Gipson CNP, Magaly Lind BOILERS INSPECTOR, Ni Rodriguez BOILERS INSPECTOR, KASH SueroC, Danica Hernandez PAMirellaC, Shivani Díaz, BOILERS INSPECTOR, Lily Esteves, BOILERS INSPECTOR, Tracy Richardson, BOILERS INSPECTOR, Carmela Wills, EXPERIMENTAL MECHANIC ELECTRICAL, Sheila Smith BOILERS INSPECTOR, Kate Macias, BOILERS INSPECTOR, Jeanie Fox, BOILERS INSPECTOR [facility] IN-PATIENT SERVICE [facility] Progress Note 03/26/2025 12:06 PM Name: Eneida Mejia Acct: [id number] Room: [address] [place], [place] [address] IP Day: 4 Admit Date: 03/22/2025 7:27 PM PCP: Sudhir [place] MD Code Status: Full Code Subjective: C/C: N/V/Abd pain/diarrhea Interval History Status: Not changed Patient was seen and examined, at time of my evaluation patient continues to report nausea, abdominal pain mainly in epigastric area Awaiting final GI input Lab vital sign rewards consultant note reviewed Discussed with RN at bedside Brief History: 49-year-old female with history of breast cancer status post left lumpectomy status post tamoxifen treatment, nicotine dependence and alcohol abuse presented as a transfer from [facility] for management of acute cholecystitis and concern [...] , PHART , PH , POCPCO2 , YCA3NFJ , PCO2 , POCPO2 , PO2ART , PO2 , POCHCO3 , JDC7URV , HCO3 , NBEA , PBEA , BEART , BE , THGBART , THB , QDM8RSU , UEVT6TPL , S3BHIUXV , O2SAT , FIO2 No results found [...] Marvel Ng MD 03/26/2025 12:06 PM * Mary Roth, GUMARO - 03/26/2025 11:47 AM EDT Comprehensive Nutrition [...] mass loss Fluid Accumulation: No fluid accumulation Station Repairer Strength: Not Performed Nutrition Assessment: Pt currently [...] 5-10 pounds in the past two weeks DESIGN DIRECTOR. Pt is asing what she should be [...] Measures: Height: 170.2 cm (5' 7.01 ) [place] Body Weight (IBW): 135 lbs (61 kg) [...] from the original note were not included. [facility] Office: [phone] Marquez Scott DO, Garth Casanova DO, Kenny Vicente DO, Edu Akers, DO, Ubaldo Nava MD, Yasmeen Dya MD, Darian Covarrubias MD, Pauly Keane MD, Terence Marte MD, Cordelia Medina MD, Sana Guaman MD, Tania Forman DO, Luigi Scott, DO, Kaylie Briones MD, Ariel Glez DO, Emily Miller MD, Catina Melissa MD, Josias Corona MD, Jamil Louie MD, Carlyle Bledsoe MD,Estefany Badillo MD, Marvel Ng MD, Elvis Malave MD, Natalie Monroe MD, Jarred Dias, DO,Yahaira Ma MD, Connor Neal DO, Kingsley James MD, Francisco Licona MD, Tania Bustillos MD, Manuel Bustillos MD, Berry Holder MD, [place] Causey, BOILERS INSPECTOR, Za Del Valle, BOILERS INSPECTOR, Jarred Sandoval, BOILERS INSPECTOR, Declan, [facility], Gabby Epstein, BOILERS INSPECTOR, Carmen Pack, BOILERS INSPECTOR, Amber Del Toro, BOILERS INSPECTOR, Lula Alvarado, BOILERS INSPECTOR, Julia Ortiz, PA-C, Linda Guidry, BOILERS INSPECTOR, Lillie Gipson, BOILERS INSPECTOR, Magaly Lind, BOILERS INSPECTOR, Ni Rodriguez, BOILERS INSPECTOR, Shaun Cabrales, PA-C, Danica Hernandez, PA-C, Shivani Díaz, BOILERS INSPECTOR, Lily Esteves, BOILERS INSPECTOR, Tracy Richardson, BOILERS INSPECTOR, Carmela Wills, EXPERIMENTAL MECHANIC [employer]LECTRICAL, Sheila Smith, BOILERS INSPECTOR, Kate Macias, BOILERS INSPECTOR, Jeanie Fox, BOILERS INSPECTOR [facility]-PATIENT SERVICE [facility] Progress Note 03/25/2025 12:58 PM Name: Eneida Mejia Acct: [id number] Room: [facility]/0503-01 Day: 3 Admit Date: 03/22/2025 7:27 PM [...] alcohol abuse presented as a transfer from [facility] for management of acute cholecystitis and concern [...] 1.2 1.1 -- Chemistry: Recent Labs 03/23/25 0520 03/23/25 1424 03/24/258 03/24/2530 03/25/25 0651 NA 131* [...] -- -- Recent Labs 03/22/25 2134 03/23/25 0503/23/2520 03/24/258 03/24/2530 03/25/25 0651 TSH -- 1.96 -- -- [...] , PHART , PH , POCPCO2 , ZGN1BXX , PCO2 , POCPO2 , PO2ART , PO2 , POCHCO3 , GXN9RHN , HCO3 , NBEA , PBEA , BEART , BE , THGBART , THB , TJR2MOV , MJXV6YDK , C7UKHXMF , O2SAT , FIO2 No results found [...] label. Hung to IV pole * Rose Traylor, MARIAJOSE - 03/25/2025 9:47 AM EDT Critical Lab Result Potassium 2.9. City Clerk notified Dr. Galeana. Potassium Chloride 10mEq/100mL IVPB [...] Measures: Height: 170.2 cm (5' 7.01 ) [place] Body Weight (IBW): 135 lbs (61 kg) [...] soon to determine Luigi Laurent RD Contact: [phone] * Dimas Andujar MD - 03/24/2025 1:39 PM EDT [facility] Gastroenterology Progress Note Eneida Mejia is [...] Severe loss of signal intensity seen on srt-sx-lwejt imaging consistent with severe hepatic steatosis. Mild [...] the possibility of cholecystitis. CBC: Recent Labs 03/23/2551903/24/2530 WBC 13.8* 13.5* HGB 7.8* 8.9* MCV 116.4* 119.6* RDW 14.7* 14.6* PLT 275 293 ANEMIA STUDIES: No results for input(s): TIBC , FERRITIN , MTLLGXXK12 , FOLATE , OCCULTBLD in the last 72 hours. Invalid input(s): LABIRON BMP: Recent Labs 03/23/2551903/23/25142303/24/254703/24/25 0630 NA 131* 131* 129* 134* K 2.8* 3.5* 3.6* 3.7 CL 93* 95* 97* 100 CO2 27 25 22 24 BUN 8 5* 3* 2* CREATININE 0.4* 0.3* 0.3* 0.4* GLUCOSE 78 77 87 99 CALCIUM 8.2* 7.6* 7.3* 7.5* MG 1.2* 1.4* -- -- LFTS: Recent Labs 03/23/2551903/24/254703/24/25 0630 ALKPHOS 227* 210* 233* ALT 73* [...] contact me with any questions or concerns. [facility] Gastroenterology Reba Gonzalez PA-C [phone] 03/24/2025 1:42 PM Attending Physician Attestation: I [...] from the original note were not included. [facility] Office: [phone] Marquez Scott DO, Garth Casanova DO, Kenny Vicente DO, Edu Akers DO, Ubaldo Nava MD, Yasmeen Day MD, Darian Covarrubias MD, Pauly Keane MD, Terence Marte MD, Cordelia Medina MD, Sana Guaman MD, Tania Forman DO, Luigi Scott DO, Kaylie Briones MD, Ariel Glez DO, Emily Miller MD, Catina Melissa MD, Josias Corona MD, Jamil Luoie MD, Carlyle Bledsoe MD,Estefany Badillo MD, Marvel Ng MD, Elvis Malave MD, Natalie Monroe MD, Jarred Dias DO,Yahaira Ma MD, Connor Neal DO, Kingsley James MD, Francisco Licona MD, Tania Bustillos MD, Manuel Bustillos MD, Berry Holder MD, Ruth Causey, BOILERS INSPECTOR, aZ Del Valle, BOILERS INSPECTOR, Jarred Sandoval, BOILERS INSPECTOR, Declan, TAI, Gabby Epstein, BOILERS INSPECTOR, Carmen Pack, BOILERS INSPECTOR, Amber Del Toro, BOILERS INSPECTOR, Lula Alvarado, BOILERS INSPECTOR, KASH HowellC, Linda Guidry, BOILERS INSPECTOR, Lillie Gipson, BOILERS INSPECTOR, Magaly Lind, BOILERS INSPECTOR, Ni oRdriguez, BOILERS INSPECTOR, Shaun Cabrales, PA-C, Danica Hernandez, PAMirellaC, Shivani Díaz, BOILERS INSPECTOR, Lily Esteves, BOILERS INSPECTOR, Tracy Richardson, BOILERS INSPECTOR, Carmela Wills, ELISA, Sheila Smith, GABRIEL, Kate Macias, GABRIEL, Jeanie Fox, GABRIEL [facility] IN-PATIENT SERVICE [facility] Progress Note 03/24/2025 7:56 AM Name: Eneida Mejia Acct: [id number] Room: [address] [place] [address] Day: 2 Admit Date: 03/22/2025 7:27 PM [...] alcohol abuse presented as a transfer from [facility] for management of acute cholecystitis and concern [...] , PHART , PH , POCPCO2 , DRC0OLZ , PCO2 , POCPO2 , PO2ART , PO2 , POCHCO3 , SGK5PEJ , HCO3 , NBEA , PBEA , BEART , BE , THGBART , THB , WLI3UZS , VUAC2LQC , X9QEMUXN , O2SAT , FIO2 No results found [...] hypokalemia, hypomagnesemia, hyponatremia-replace electrolytes as needed Chronic gsblrit-ouffig-nm stool studies. Alcohol use disorder-thiamine folate multivitamin. [...] from the original note were not included. [facility] Office: [phone] Marquez Scott DO, Garth Casanova DO, Kenny Vicente DO, Edu Akers DO, Ubaldo Nava MD, Yasmeen Day MD, Darian Covarrubias MD, Pauly Keane MD, Terence Marte MD, Cordelia Medina MD, Sana Guaman MD, Tania Forman DO, Luigi Scott DO, Kaylie Briones MD, Ariel Glez DO, Emily Miller MD, Catina Melissa MD, Josias Corona MD, Jamil Louie MD, Carlyel Bledsoe MD,Estefany Badillo MD, Marvel Ng MD, Elvis Malave MD, Natalie Monroe MD, Jarred Dias DO,Yahaira Ma MD, Connor Neal DO, Kingsley James MD, Francisco Licona MD, Tania Bustillos MD, Manuel Bustillos MD, Berry Holder MD, Ruth Causey, BOILERS INSPECTOR, Za Del Valle, BOILERS INSPECTOR, Jarred Sandoval, BOILERS INSPECTOR, TAI Manriquez, Gabby Epstein, BOILERS INSPECTOR, Carmen Pack, BOILERS INSPECTOR, Amber Del Toro BOILERS INSPECTOR, Lula Alvarado BOILERS INSPECTOR, Julia Ortiz PA-C, Linda Guidry, BOILERS INSPECTOR, Lillie Gipson, BOILERS INSPECTOR, Magaly Lind, BOILERS INSPECTOR, Ni Rodriguez, BOILERS INSPECTOR, Shaun Cabrales PA-C, Danica Hernandez PA-C, Shivani Díaz BOILERS INSPECTOR, Lily Esteves, BOILERS INSPECTOR, Tracy Richardson, BOILERS INSPECTOR, Carmela Wills, EXPERIMENTAL MECHANIC ELECTRICAL, Sheila Smith, BOILERS INSPECTOR, Kate Macias, BOILERS INSPECTOR, Jeanie Fox, BOILERS INSPECTOR [facility] IN-PATIENT SERVICE [facility] Progress Note 03/23/2025 8:12 AM Name: Eneida Mejia Acct: [id number] Room: [address] [place] [address] Day: 1 Admit Date: 03/22/2025 7:27 PM PCP: Sudhir Gonazlez MD Code Status: Full Code Subjective: C/C: N/V/Abd pain/diarrhea Interval History Status: Not changed Hemodynamically stable. Continues to feel nauseous, has belly pain. No active vomiting. Labs reviewed. On electrolyte replacements as needed. Pending GI eval. Brief History: 49-year-old female with history of breast cancer status post left lumpectomy status post tamoxifen treatment, nicotine dependence and alcohol abuse presented as a transfer from [facility] for management of acute cholecystitis and concern [...] , PHART , PH , POCPCO2 , VLR4AAW , PCO2 , POCPO2 , PO2ART , PO2 , POCHCO3 , ZOG6YUI , HCO3 , NBEA , PBEA , BEART , BE , THGBART , THB , TWG2COU , ONXQ0YCU , R3EVUEOE , O2SAT , FIO2 No results found [...] hypokalemia, hypomagnesemia, hyponatremia-replace electrolytes as needed Chronic thhhyec-yjiqqm-nf stool studies. Alcohol use disorder-thiamine folate multivitamin. [...] PANEL W/ REFLEX TO MG FOR LOW SItvtppg72/19/2025 5:29 AM EDT CBC WITH AUTO EOHQFFXGLAFCBclftuz92/19/2025 5:29 AM EDT HEPATIC FUNCTION TIXHUYiitxim02/19/2025 5:29 AM EDT WOYXJQRHTGRYDvxzpfg76/18/2025 6:26 AM EDT BASIC METABOLIC PANEL W/ REFLEX TO MG FOR LOW ZHzbwoap23/18/2025 6:26 AM EDT PTZZvcwnwn08/18/2025 6:26 AM EDT VOGWAABKYPvycfjx92/18/2025 6:26 AM EDT HEPATIC FUNCTION WXJWARnhabyl20/18/2025 6:26 AM EDT BASIC METABOLIC PANEL W/ REFLEX TO MG FOR LOW IHoadrwk85/17/2025 6:24 AM EDT OHJEcohkcv08/17/2025 6:24 AM EDT HEPATIC FUNCTION CKEOGJqmdrgc56/17/2025 6:24 AM EDT SURGICAL PATHOLOGY RQYAIVShyorqc79/17/2025 12:00 AM EDT HEPATIC FUNCTION FMWTLTzdwzgy89/16/2025 4:26 AM EDT XR ABDOMEN (KUB) (SINGLE AP VIEW)Bpvqmwt7603/27/2025 3:36 PM EDT PREVIOUS WFJAWIISOVKA33/15/2025 2:55 PM EDTCOMPREHENSIVE METABOLIC PANEL W/ REFLEX TO MG FOR LOW KSTAT1 2:55 PM EDT ECHO (TTE) QYRSLZQPNnyzpdp82/15/2025 11:55 AM EDT Hypotension, unspecified hypotension type RMIIsacuyx23/15/2025 11:26 AM EDT US GI ENDOSCOPIC S&XBemuirx44/14/2025 11:44 PM EDT FLUORO FOR SURGICAL WGCNGYKGDOJjswutu47/14/2025 6:17 PM EDT CYTOLOGY, NON-CNMCcolztq43/14/2025 4:28 PM EDT Common bile duct stricture (HCC) SURGICAL PATHOLOGY EUWFSZIuoisck51/14/2025 9:22 AM EDT COMPREHENSIVE METABOLIC PANEL W/ REFLEX TO MG FOR LOW IYvreblu79/14/2025 6:46 AM EDT CBC WITH AUTO WTOVMSWKMYKFKkorrqv21/14/2025 6:46 AM EDT SURGICAL PATHOLOGY RERGSONrtsqxe15/14/2025 12:00 AM EDT COMPREHENSIVE METABOLIC YQAUMEbskp34/14/2025 12:00 AM EDT BASIC METABOLIC PANEL W/ REFLEX TO MG FOR LOW DSxkcack90/13/2025 8:16 PM EDT PREVIOUS JWXFWAHLSrmcnac91/13/2025 3:59 PM EDTVITAMIN B12 & FOLATERoutine 03/25/2025 3:59 PM EDT US ORGAN XTAAZHHDHCZYMfnezaj20/13/2025 12:16 PM EDT COLONOSCOPY CEIRDF0903/25/2025 9:40 AM EDT Anemia, unspecified type COLONOSCOPY POLYPECTOMY SNARE/KJLNKZ1403/25/2025 9:40 AM EDT Anemia, unspecified type ESOPHAGOGASTRODUODENOSCOPY KLOUAD0803/25/2025 9:40 AM EDT Anemia, unspecified type COMPREHENSIVE METABOLIC PANEL W/ REFLEX TO MG FOR LOW ZUwmezne76/13/2025 6:51 AM EDT CBC WITH AUTO HZMDOISUGKUQPvxfwww02/13/2025 6:51 AM EDT IRON AND RZEZLbkebrw76/13/2025 6:51 AM EDT LAILDTHAACyaolur47/13/2025 6:51 AM EDT XACIOIMJSjtscnh11/13/2025 6:51 AM EDT SURGICAL PATHOLOGY PVRPVIUhxausa92/13/2025 12:00 AM EDT MRI ABDOMEN W WO CONTRAST DTGUCtqlktl36/12/2025 9:32 AM EDT COMPREHENSIVE METABOLIC PANEL W/ REFLEX TO MG FOR LOW UEwzsovu87/12/2025 6:30 AM EDT CBC WITH AUTO OEDMITLMBMPQWampgbc52/05/2025 6:30 AM EDT PROTIME-FIFZjgxrfs20/12/2025 6:30 AM EDT COMPREHENSIVE METABOLIC HSHLYQaznv44/12/2025 12:48 AM EDT GASTROINTESTINAL PANEL, MOLECULARSunquest Label Print03/23/2025 6:24 PM EDT C DIFF TOXIN/ANTIGENSunquest Label Print03/23/2025 6:24 PM EDT BASIC METABOLIC PANEL W/ REFLEX TO MG FOR LOW KSTAT1 2:24 PM EDT BQLQUELNYYnttvip96/11/2025 2:24 PM EDT LIPID, GIREGOTMhkiwyr80/11/2025 5:20 AM EDT TSH REFLEX TO VI1Yedivro25/11/2025 5:20 AM EDT COMPREHENSIVE METABOLIC PANEL W/ REFLEX TO MG FOR LOW CXyonhdb28/11/2025 5:20 AM EDT CBC WITH AUTO NSXCPMFSZBAJBjkaxkv05/11/2025 5:20 AM EDT PROTIME-ZAAClswvcz90/11/2025 5:20 AM EDT AWNDUWMSSVMvhfdyg13/11/2025 5:20 AM EDT ULTRQCDNIYgyoctk96/11/2025 5:20 AM EDT CFWDONWozdzwu51/10/2025 9:34 PM EDT documented in this encounter Results * (ABNORMAL) Basic Metabolic Panel w/ Reflex to MG (03/31/2025 5:29 AM EDT) ComponentValueRef RangeTest MethodAnalysis TimePerformed AtPathologist MobsllfvlXwqbgk304088 - 145 mmol/L1 5:29 AM EDTMERCY [facility] Potassium4.23.7 - 5.3 mmol/L1 5:29 AM EDTMERCY LABORATORIESComment: Specimen hemolysis has exceeded the interference as defined by Francesco. Value may be falsely increased. Suggest recollection if clinically indicated. Rlcudjpi05035 - 107 mmol/L1 5:29 AM EDTMERCY VRRGNEWMEPEKTD94968 - 31 mmol/L1 5:29 AM EDTMERCY LABORATORIESAnion Gap6(L)9 - 16 mmol/L 03/31/2025 5:29 AM EDTMERCY GTMYCRLJBBOFSshngbb6038 - 99 mg/dL03/31/2025 5:29 AM EDTMERCY LABORATORIESBUN3(L)6 - 20 mg/dL03/31/2025 5:29 AM EDTM[facility]CY [facility] Creatinine0.4(L)0.6 - 0.9 mg/dL03/31/2025 5:29 AM EDTMERCY LABORATORIESEst, Glom Filt Rate>90>60 mL/min/1.82s74403/31/2025 5:29 AM EDTMERCY LABORATORIESComment: ? These results [...] Method / VolumeCollection TimeReceived TimeBloodBLOOD SPECIMEN / Dwtzovn7303/31/2025 5:29 AM EDT1 5:57 AM EDT Narrative Authorizing ProviderResult TypeResult StatusFred Tracy DOCHEMISTRY ORDERABLESFinal ResultPerforming OrganizationAddressCity/State/ZIP CodePhone Number [facility] YOUNGSTOWNGuitar Party [facility] [address] [place] [address], [facility] [phone] * (ABNORMAL) CBC with Auto Differential (03/31/2025 5:29 AM EDT)ComponentValue Ref RangeTest MethodAnalysis TimePerformed AtPathologist SignatureWBC7.83.5 - 11.3 k/uL03/31/2025 5:29 AM EDTMERCY LABORATORIESRBC2.58(L)3.95 - 5.11 m/uL 03/31/2025 5:29 AM EDTMERCY LABORATORIESHemoglobin9.6(L)11.9 - 15.1 g/dL 03/31/2025 5:29 AM EDTMERCY UVCCZHYAGCFRDrgffpsibg41.5(L)36.3 - 47.1 % 03/31/2025 5:29 AM EDTMERCY HPUGQIQXNERKNVC467.2(H)82.6 - 102.9 fL03/31/2025 5:29 AM EDTMERCY XKYNONDJYZOHHGA67.2(H)25.2 - 33.5 pg03/31/2025 5:29 AM EDT [employer] QMMWIJAFILRADGMP50.528.4 - 34.8 g/dL03/31/2025 5:29 AM EDTMERCY HSSTNCTKIIHIJIJ34.211.8 - 14.4 %03/31/2025 5:29 AM EDTMERCY LAB[facility]ATORIES Aypakzuvd955483 - 453 k/uL03/31/2025 5:29 AM EDTMERCY EXTPRZAMQETEKFB80.48.1 - 13.5 fL03/31/2025 5:29 AM EDTMERCY LABORATORIESNRBC [...] - 0.20 k/uL03/31/2025 5:29 AM EDTMERCY LABORATORIESMorphologyMACROCYTOSIS BGAPJBC9903/31/2025 5:29 AM EDTMERCY LABORATORIESSpecimen (Source)Anatomical Location / LateralityCollection Method / VolumeCollection TimeReceived TimeBloodBLOOD SPECIMEN / Fzyioof5203/31/2025 5:29 AM EDT1 5:57 AM EDT Narrative Authorizing ProviderResult TypeResult StatusAndrew C [facility] Centersa DOHEMATOLOGY ORDERABLESFinal ResultPerforming OrganizationAddressCity/State/[facility] CodePhone Number [address] [phone] * (ABNORMAL) Hepatic Function Panel (03/31/2025 5:29 AM EDT)ComponentValueRef RangeTest MethodAnalysis TimePerformed AtPathologist SignatureAlbumin2.6(L)3.5 - 5.2 g/dL03/31/2025 5:29 AM EDTMERCY LABORATORIESAlkaline Rvhicqspijk259(H)35 - 104 U/L1 5:29 AM EDTMERCY KCNBGSHPYOBWWFH7359 - 35 U/L1 5:29 AM EDTMERCY RKRDYNWJKHRDXWE77(H)10 - 35 U/L1 5:29 AM EDTMERCY LABORATORIESComment: [...] / VolumeCollection TimeReceived TimeBlood BLOOD SPECIMEN / Hbemcir7003/31/2025 5:29 AM EDT1 5:57 AM EDT Narrative Authorizing ProviderResult TypeResult StatusAustin D Monae DOCHEMISTRY ORDERABLESFinal ResultPerforming OrganizationAddressCity/State/ZIP CodePhone Number [facility] [address] [place] [address], [facility] [phone] * (ABNORMAL) Magnesium (03/30/2025 6:26 AM EDT)ComponentValueRef RangeTest MethodAnalysis TimePerformed AtPathologist SignatureMagnesium1.3(L)1.6 - 2.6 mg/dL03/30/2025 6:26 AM EDTMERCY LABORATORIESSpecimen (Source)Anatomical Location / LateralityCollection Method / VolumeCollection TimeReceived Time 03/30/2025 6:26 AM EDT1 8:30 AM EDT Narrative Authorizing ProviderResult TypeResult StatusAustin D Monae DOCHEMISTRY ORDERABLESFinal ResultPerforming OrganizationAddressCity/State/ZIP CodePhone Number [facility] [address] [place] [address], [facility] [phone] * (ABNORMAL) Differential (03/30/2025 6:26 AM EDT)ComponentValueRef RangeTest MethodAnalysis TimePerformed AtPathologist SignatureRBC MorphologyMACROCYTOSIS PRIGBEP5703/30/2025 6:26 AM EDTMERCY LABORATORIESImmature Granulocytes %1(H)0 % 03/30/2025 6:26 AM EDTMERCY LABORATORIESNeutrophils %73(H)36 - 65 %03/30/2025 6:26 AM EDTMERCY LABORATORIESLymphocytes %14(L)24 - 43 %03/30/2025 6:26 AM EDT [facility]IESMonocytes %103 - 12 %03/30/2025 6:26 AM EDTMERCY LABORATORIESEosinophils %11 - 4 %03/30/2025 6:26 AM EDTMERCY LABORATORIES Basophils %10 - 2 %03/30/2025 6:26 AM EDTMERCY LABORATORIESImmature Granulocytes Absolute0.100.00 - 0.30 k/uL03/30/2025 6:26 AM EDTMERCY LABORATORIESNeutrophils Absolute7.531.50 - 8.10 k/uL03/30/2025 6:26 AM EDT MERCGuitar Party LABORATORIESLymphocytes Absolute1.441.10 - 3.70 k/uL03/30/2025 6:26 AM EDTMERCY LABORATORIESMonocytes Absolute1.030.10 - 1.20 k/uL03/30/2025 6:26 AM EDTMERCY LABORATORIESEosinophils Absolute0.100.00 - 0.44 k/uL03/30/2025 6:26 AM EDTMERCY LABORATORIESBasophils Absolute0.100.00 - 0.20 k/uL03/30/2025 6:26 AM EDTMERCY LABORATORIESMorphologyMACROCYTOSIS VRDPDRF9603/30/2025 6:26 AM EDT [employer] LABORATORIESSpecimen (Source)Anatomical Location / LateralityCollection Method / VolumeCollection TimeReceived Time03/30/2025 6:26 AM EDT1 8:30 AM EDT Narrative Authorizing ProviderResult TypeResult StatusAustin D Monae DOCHEMISTRY ORDERABLESFinal ResultPerforming OrganizationAddressCity/State/ZIP CodePhone Number [facility] [address] [phone] * (ABNORMAL) CBC (03/30/2025 6:26 AM EDT)ComponentValueRef RangeTest Method Analysis TimePerformed AtPathologist UglacmcwuTDV60.33.5 - 11.3 k/uL03/30/2025 6:26 AM EDTMERCY LABORATORIESRBC2.51(L)3.95 - 5.11 m/uL03/30/2025 6:26 AM EDT [facility] LABORATORIESHemoglobin9.3(L)11.9 - 15.1 g/dL03/30/2025 6:26 AM EDTMERCY KRRKFBKOCZFXMwquxtywar21.0(L)36.3 - 47.1 %03/30/2025 6:26 AM EDTMERCY DITFYXYAZGXKNVB475.5(H)82.6 - 102.9 fL03/30/2025 6:26 AM EDTMERCY LABORATORIES MCH37.1(H)25.2 - 33.5 pg03/30/2025 6:26 AM EDTMERCY IKVWPJAQIUQGZOUO90.028.4 - 34.8 g/dL03/30/2025 6:26 AM EDTMERCY XKEKHJDSWSHKHPL36.211.8 - 14.4 % 03/30/2025 6:26 AM EDTMERCY KUGXMMBZDSMARdgmxxavi008054 - 453 k/uL03/30/2025 6:26 AM EDTMERCY PYOMTROBEDJRLPG77.88.1 - 13.5 fL03/30/2025 6:26 AM EDTMERCY LABORATORIESNRBC Automated0.00.0 per 100 WBC03/30/2025 6:26 AM EDTMERCY LABORATORIESSpecimen (Source)Anatomical Location / LateralityCollection Method / VolumeCollection TimeReceived Time03/30/2025 6:26 AM EDT1 8:30 AM EDT Narrative Authorizing ProviderResult TypeResult StatusAustin D Monae DOHEMATOLOGY ORDERABLESFinal ResultPerforming OrganizationAddressCity/State/ZIP CodePhone Number [facility] YOUNGSTOWNKeith [facility] [address] [place] [address], [facility] [phone] * (ABNORMAL) Basic Metabolic Panel w/ Reflex to MG (03/30/2025 6:26 AM EDT) ComponentValueRef RangeTest MethodAnalysis TimePerformed AtPathologist NqznviqxgPzpkac118(L)136 - 145 mmol/L1 6:26 AM EDTMERCY LABORATORIES Potassium3.2(L)3.7 - 5.3 mmol/L1 6:26 AM EDTMERCY LABORATORIES Quzpqkkz12545 - 107 mmol/L1 6:26 AM EDTMERCY NXQDBXOMQUEZZP23924 - 31 mmol/L1 6:26 AM EDTMERCY LABORATORIESAnion Uck935 - 16 mmol/L 03/30/2025 6:26 AM EDTMERCY HSDZILQYBKBFUivasgy7357 - 99 mg/dL03/30/2025 6:26 AM EDTMERCY LABORATORIESBUN3(L)6 - 20 mg/dL03/30/2025 6:26 AM EDTMERCY LABORATORIESCreatinine0.4(L)0.6 - 0.9 mg/dL03/30/2025 6:26 AM EDTMERCY LABORATORIESEst, Glom Filt Rate>90>60 mL/min/1.94p33803/30/2025 6:26 AM EDTMERCY LABORATORIESComment: ? These results [...] Monae DOCHEMISTRY ORDERABLESFinal ResultPerforming OrganizationAddressCity/State/ZIP CodePhone Number [facility] [address] [place] [id number], [facility] [phone] * (ABNORMAL) Hepatic Function Panel (03/30/2025 6:26 AM EDT)ComponentValueRef RangeTest MethodAnalysis TimePerformed AtPathologist SignatureAlbumin2.6(L)3.5 - 5.2 g/dL03/30/2025 6:26 AM EDTMERCY LABORATORIESAlkaline Cjomsxgmfwb987(H)35 - 104 U/L1 6:26 AM EDTMERCY PNUYXQDKECTVDRO6237 - 35 U/L1 6:26 AM EDTMERCY KNTMLIKKMVAJZJB32(H)10 - 35 U/L1 6:26 AM EDTMERCY LABORATORIESTotal Bilirubin3.3(H)0.0 - 1.2 mg/dL03/30/2025 6:26 AM EDTMERCY LABORATORIESBilirubin, Direct2.6(H)0.0 - 0.2 mg/dL03/30/2025 6:26 AM EDTMERCY LABORATORIESBilirubin, Indirect0.70.0 - 1.0 mg/dL03/30/2025 6:26 AM EDTMERCY LABORATORIESTotal Protein5.5(L)6.6 - 8.7 g/dL03/30/2025 6:26 AM EDTMERCY LABORATORIESGlobulin2.9g/dL03/30/2025 6:26 AM EDTMERCY LABORATORIES Albumin/Globulin Ratio0.9(L)1.0 - 2.510 6:26 AM EDTMERCY LABORATORIES Specimen (Source)Anatomical Location / LateralityCollection Method / Volume Collection TimeReceived TimeBloodBLOOD SPECIMEN / Mcxalvg4603/30/2025 6:26 AM EDT1 8:30 AM EDT Narrative Authorizing ProviderResult TypeResult StatusIsaias Monae DOCHEMISTRY ORDERABLESFinal ResultPerforming OrganizationAddressCity/State/ZIP CodePhone Number [address]YN [place] [address], [facility] [phone] * (ABNORMAL) Hepatic Function Panel (03/29/2025 6:24 AM EDT)ComponentValueRef RangeTest MethodAnalysis TimePerformed AtPathologist SignatureAlbumin2.6(L)3.5 - 5.2 g/dL03/29/2025 6:24 AM EDTMERCY LABORATORIESAlkaline Zlxvdsocmru898(H)35 - 104 U/L1 6:24 AM EDTMERCY SZABNXGDLYZQUDL2869 - 35 U/L1 6:24 AM EDTMERCY HJRXAGJWMFYIIHQ11(H)10 - 35 U/L1 6:24 AM EDTMERCY LABORATORIESComment: [...] / VolumeCollection TimeReceived TimeBlood BLOOD SPECIMEN / Fpawyjb5503/29/2025 6:24 AM EDT1 6:42 AM EDT Narrative Authorizing ProviderResult TypeResult StatusIsaias Monae DOCHEMISTRY ORDERABLESFinal ResultPerforming OrganizationAddressCity/State/ZIP [place] [address], [facility] [phone] * (ABNORMAL) CBC (03/29/2025 6:24 AM EDT)ComponentValueRef RangeTest Method Analysis TimePerformed AtPathologist SignatureWBC8.63.5 - 11.3 k/uL03/29/2025 6:24 AM EDTMERCY LABORATORIESRBC2.44(L)3.95 - 5.11 m/uL03/29/2025 6:24 AM EDT [facility] LABORATORIESHemoglobin9.1(L)11.9 - 15.1 g/dL03/29/2025 6:24 AM EDTMERCY MGTXKBFMKNBYLxopbawyzp35.6(L)36.3 - 47.1 %03/29/2025 6:24 AM EDTMERCY MDEPKCNCGRIAFCE947.3(H)82.6 - 102.9 fL03/29/2025 6:24 AM EDTMERCY LABORATOR[facility] MCH37.3(H)25.2 - 33.5 pg03/29/2025 6:24 AM EDTMERCY ZBYNZXOQQVFKUVQJ28.728.4 - 34.8 g/dL03/29/2025 6:24 AM EDTMERCY JZFNDKNXCYHZLEZ49.311.8 - 14.4 % 03/29/2025 6:24 AM EDTMERCY BVDWKYCGHQMJNtofjwddj571311 - 453 k/uL03/29/2025 6:24 AM EDTMERCY QSYOHJWWNEUGSNP63.38.1 - 13.5 fL03/29/2025 6:24 AM EDTMERCY LABORATORIESNRBC Automated0.00.0 per 100 WBC03/29/2025 6:24 AM EDTMERCY LABORATORIESSpecimen (Source)Anatomical Location / LateralityCollection Method / VolumeCollection TimeReceived TimeBLOOD SPECIMEN / Njzbsut2803/29/2025 6:24 AM EDT1 6:42 AM EDT Narrative Authorizing ProviderResult TypeResult StatusBakyle Ng MDHEMATOLOGY ORDERABLESFinal ResultPerforming OrganizationAddressCity/State/ZIP CodePhone Number [facility] [address] [place] [address], [facility] [phone] * (ABNORMAL) Basic Metabolic Panel w/ Reflex to MG (03/29/2025 6:24 AM EDT) ComponentValueRef RangeTest MethodAnalysis TimePerformed AtPathologist SmgqmngpvIhfreh473(L)136 - 145 mmol/L1 6:24 AM EDTMERCY LABORATORIES Potassium4.23.7 - 5.3 mmol/L1 6:24 AM EDTMERCY LABORATORIESComment: Specimen hemolysis has exceeded the interference as defined by Francesco. Value may be falsely increased. Suggest recollection if clinically indicated. Pbjsgwry58621 - 107 mmol/L1 6:24 AM EDTMERCY KONOMLSEYQIQYT84978 - 31 mmol/L1 6:24 AM EDTMERCY LABORATORIESAnion Gap7(L)9 - 16 mmol/L 03/29/2025 6:24 AM EDTMERCY TPCDORJLFYYNQepfzsn7654 - 99 mg/dL03/29/2025 6:24 AM EDTMERCY LABORATORIESBUN2(L)6 - 20 mg/dL03/29/2025 6:24 AM EDTMERCY LABORATORIES Creatinine0.4(L)0.6 - 0.9 mg/dL03/29/2025 6:24 AM EDTMERCY LABORATORIESComment: Specimen icterus has exceeded the interference as defined by Francesco. Result may be affected.Est, Glom Filt Rate>90>60 mL/min/1.11v51603/29/2025 6:24 AM EDTMERCY LABORATORIESComment: ? These results [...] Method / VolumeCollection TimeReceived TimeBloodBLOOD SPECIMEN / Wfvchbv3603/29/2025 6:24 AM EDT1 6:42 AM EDT Narrative Authorizing ProviderResult TypeResult StatusBakyle Ng MDCHEMISTRY ORDERABLESFinal ResultPerforming OrganizationAddressCity/State/ZIP CodePhone Number [facility] YOUNGSTOWNGuitar Party [place] [phone] [place] [address], [facility] [phone] * SURGICAL PATHOLOGY REPORT (03/29/2025 12:00 AM EDT)ComponentValueRef RangeTest MethodAnalysis TimePerformed AtPathologist SignatureSurgical Pathology Report Path Number: [id number] -- Diagnosis -- Gallbladder: -Cholelithiasis and mild chronic inflammation. Myles Rocha M.D. Electronically Signed Out ? rdd/04/01/2025 Clinical Information Pre-Op Diagnosis: ??ACUTE CHOLECYSTITIS Operative Findings: ??GALLBLADDER AND CONTENTS Operation Performed: ??LAPAROSCOPIC ROBOTIC CHOLECYSTECTOMY, POSSIBLE INTRAOPERATIVE CHOLANGIOGRAM, POSSIBLE OPEN se Source of Specimen A: GALLBLADDER AND CONTENTS Gross Description ENEIDA MEJIA GALLBLADDER AND CONTENTS Received in formalin is [...] Microscopic Description Microscopic examination performed. Processing Lab: ??[address] [phone] Interpretation Performed at [address] [phone] SURGICAL PATHOLOGY CONSULTATION Patient Name: ENEIDA MEJIA [facility] Rec: [id number] [facility] ??[facility] ANATOMIC PATHOLOGY [address] [place] [address]. ??[place], [place] [phone] [facility] LABSSpecimen (Source)Anatomical Location / LateralityCollection Method / VolumeCollection TimeReceived Time 2:07 PM EDT Narrative Authorizing ProviderResult TypeResult StatusAmer Jennifer Sue MD PATHOLOGY/CYTOLOGY ORDERABLESFinal ResultPerforming OrganizationAddress City/State/ZIP CodePhone Number [place] [phone] [place] [address], [facility] [phone] [facility] * (ABNORMAL) Hepatic Function Panel (03/28/2025 4:26 AM EDT)ComponentValueRef RangeTest MethodAnalysis TimePerformed AtPathologist SignatureAlbumin2.6(L)3.5 - 5.2 g/dL03/28/2025 4:26 AM EDTMERCY LABORATORIESAlkaline Zvyeubklefv536(H)35 - 104 U/L1 4:26 AM EDTMERCY AXAXQAQDIHUXILY9743 - 35 U/L10 4:26 AM EDTMERCY XKCPBCXMOFUUFFG37(H)10 - 35 U/L1 4:26 AM EDTMERCY LABORATORIESTotal [...] / Volume Collection TimeReceived TimeBloodBLOOD SPECIMEN / Midyuyu3803/28/2025 4:26 AM EDT1 4:32 AM EDT Narrative Authorizing ProviderResult TypeResult StatusIsaias Monae DOCHEMISTRY ORDERABLESFinal ResultPerforming OrganizationAddressMercy Health St[facility]/State/ZIP CodePhone Number [facility] [place] [address] [place] [address], [facility] [phone] * XR ABDOMEN (KUB) (SINGLE AP VIEW) [...] system calculus evident. Authorizing ProviderResult TypeResult StatusReba Gonzalez [facility] DIAGNOSTIC IMAGING ORDERABLESFinal Result * PREVIOUS SPECIMEN (03/27/2025 2:55 PM EDT)Specimen (Source)Anatomical Location / LateralityCollection Method / VolumeCollection TimeReceived Time03/27/2025 2:55 PM EDT1 3:10 PM EDT Narrative Authorizing ProviderResult TypeResult StatusBayan Zac Ng MDCHEMISTRY ORDERABLESFinal ResultPerforming OrganizationAddressCity/State/ZIP CodePhone Number [facility] [address] [place] [address], [facility] [phone] * (ABNORMAL) Comprehensive Metabolic Panel w/ Reflex to MG (03/27/2025 2:55 PM EDT)ComponentValueRef RangeTest MethodAnalysis TimePerformed AtPathologist UdsdkalfiLfjkvy006(L)136 - 145 mmol/L1 2:55 PM EDTMERCY LABORATORIES Potassium4.13.7 - 5.3 mmol/L1 2:55 PM EDTMERCY LABORATORIESChloride 68834 - 107 mmol/L1 2:55 PM EDTMERCY RNSZFSDAVUGGCY33367 - 31 mmol/L 03/27/2025 2:55 PM EDTMERCY LABORATORIESAnion Gap6(L)9 - 16 mmol/L1 2:55 PM EDTMERCY VKJXBXUXCLADKngxjrt010(H)74 - 99 mg/dL03/27/2025 2:55 PM EDT [facility] LABORATORIESBUN3(L)6 - 20 mg/dL03/27/2025 2:55 PM EDTM[facility]CY LABORATORIES Creatinine0.3(L)0.6 - 0.9 mg/dL03/27/2025 2:55 PM EDTM[facility]CY LABORATORIES Comment:Specimen icterus has exceeded the interference as defined by Francesco. Result may be affected.Est, Glom Filt Rate>90>60 mL/min/1.45t53603/27/2025 2:55 PM EDTMERCY LABORATORIESComment: ? These results [...] - 1.2 mg/dL03/27/2025 2:55 PM EDTMERCY LABORATORIESAlkaline Bnxorvklinf111(H)35 - 104 U/L1 2:55 PM EDTMERCY FGFZAQPOAONLTMN6270 - 35 U/L10 2:55 PM EDTMERCY HBXXQPHCRXAPLIT01(H)10 - 35 U/L1 2:55 PM EDTMERCY LABORATORIES Specimen (Source)Anatomical Location / LateralityCollection Method / Volume Collection TimeReceived Time03/27/2025 2:55 PM EDT1 3:10 PM EDT Narrative Authorizing ProviderResult TypeResult StatusBayan Zac Ng MDCHEMISTRY ORDERABLESFinal ResultPerforming OrganizationAddressCity/State/ZIP CodePhone Number [place] [phone] [address] [phone] * (ABNORMAL) ECHO (TTE) COMPLETE (03/27/2025 11:55 AM EDT)ComponentValueRef RangeTest MethodAnalysis TimePerformed AtPathologist SignatureLV EDV S3F69lL [facility] CV CPACSLV EDV J4D98jMMODD CV CPACSLV ESV T9E62rPEQVH CV CPACSLV ESV A4C 20mLBSMH CV CPACSIVSd0.80.6 - 0.9 cmBSMH CV CPACSLVIDd4.43.9 - 5.3 cmBSMH CV CPACSLVIDs3.1cmBSMH CV CPACSLVOT Diameter2.0cmBSMH CV CPACSLVOT Mean Gradient2 mmHgBSMH CV CPACSLVOT VTI15.3cmBSMH CV CPACSLVOT Peak Velocity0.9m/sBSMH CV CPACSLVOT Peak Dgqffbhg5jeHiVAIS CV CPACSLVPWd0.80.6 - 0.9 cmBSMH CV CPACSLV E' Lateral Velocity9.46cm/sBSMH CV CPACSLV E' Septal Velocity6.31cm/sBSMH CV CPACSGlobal longitudinal strain-15.3%[facility] CV CPACSLV Ejection Fraction A2C40% [facility] CV CPACSLV Ejection Fraction A4C61%[facility] CV CPACSEF VF2778 - 100 %[facility] CV CPACSLVOT Area3.3ja7NENY CV CPACSLVOT SV48.0mlBSMH CV CPACSLA Minor Axis3.3cm [facility] CV CPACSLA Major Axis5.3cmBSMH CV CPACSLA Area 2C9.5rs6IGRL CV CPACSLA Area 4C12.0et9UNYZ CV CPACSLA Volume MOD Q5U9274 - 52 mLBSMH CV CPACSLA Volume MOD P0C7066 - 52 mLBSMH CV CPACSLA Diameter3.7cmBSMH CV CPACSRA Area 4C12.8cm2 [facility] CV CPACSRA Bcwbst19cyUKNU CV CPACSAV Mean Velocity0.8m/sBSMH CV CPACSAV Mean Yggmzlbn8cbPiLFRS CV CPACSAV VTI23.0cmBSMH CV CPACSAV Peak Velocity1.2m/s [facility] CV CPACSAV Peak Zfdpekcn0utMcLWXA CV CPACSAV Area by VTI2.0dm1TSBP CV CPACSAV Area by Peak Velocity2.7hf2BMOD CV CPACSAortic Root3.6cmBSMH CV CPACS Ascending Aorta3.0cmBSMH CV CPACSIVC Proxmal1.8cmBSMH CV CPACSMV E Wave Deceleration Ttrx754.0msBSMH CV CPACSMV A Velocity0.75m/sBSMH CV CPACSMV E Velocity0.57m/sBSMH CV CPACSMV Mean Qmqfxdgg7lqRrSHFT CV CPACSMV VTI19.3cmBSMH CV CPACSMV Mean Velocity0.5m/sBSMH CV CPACSMV Max Velocity0.7m/sBSMH CV CPACS MV Peak Ucpuxxve6myAkRQGZ CV CPACSMV Area by VTI2.8dg7QNMD CV CPACSRV Basal Dimension3.1cmBSMH CV CPACSRV Mid Dimension3.1cmBSMH CV CPACSRV Free Wall Peak S'10.3cm/sBSMH CV CPACSTAPSE2.0>=1.7 cmBSMH CV CPACSBody Surface Area1.0v8YZNR CV CPACSFractional Shortening 0J8760 - 44 %BSMH CV CPACSLV ESV Index A4C12 mL/m2BSMH CV CPACSLV EDV Index T6A56pB/m2BSMH CV CPACSLV ESV Index Q8L59yA/m2 [facility] CV CPACSLV EDV Index S1F38tQ/m2BSMH CV CPACSLVIDd Index2.72cm/m2BSMH CV CPACSLVIDs Index1.91cm/m2BSMH CV [...] CPACSLA/AO Root Ratio1.03BSMH CV CPACSRA Volume Index T8V83hM/m2BSMH CV CPACSAo Root Index2.22cm/m2BSMH CV CPACSAscending Aorta Index1.85cm/m2BSMH CV CPACSAV Velocity Ratio0.75BSMH CV CPACSLVOT:AV VTI Index0.67BSMH CV CPACSAVA/BSA VTI 1.3cm2/m2BSMH CV CPACSAVA/BSA Peak Velocity1.4cm2/m2BSMH CV CPACSMV:LVOT VTI Index1.26BSMH CV CPACSEst. RA Owiyplfu7cxEuYNAA CV CPACSEF Xgpcyznmf72%BS[facility] CV CPACSAnatomical RegionLateralityModalityEchocardiographySpecimen (Source) Anatomical Location / [...] given. Authorizing ProviderResult TypeResult StatusSyed Diego Harper [facility] ECHO ORDERABLESFinal Result * (ABNORMAL) CBC (03/27/2025 11:26 AM EDT)ComponentValueRef RangeTest Method Analysis TimePerformed AtPathologist JyprgsttcEJE54.0(H)3.5 - 11.3 k/uL 03/27/2025 11:26 AM EDTMERCY LABORATORIESRBC2.54(L)3.95 - 5.11 m/uL03/27/2025 11:26 AM EDTMERCY LABORATORIESHemoglobin9.7(L)11.9 - 15.1 g/dL03/27/2025 11:26 AM EDTMERCY JHCNGYETUSHYZmiovqdgaa06.9(L)36.3 - 47.1 %03/27/2025 11:26 AM EDT [facility] BSUYBRUUYWYKIJV658.7(H)82.6 - 102.9 fL03/27/2025 11:26 AM EDTMMovolo.com GIWLJZRZNQYDOUI64.2(H)25.2 - 33.5 pg03/27/2025 11:26 AM EDTM[facility]CY LABORATORIES MCHC31.428.4 - 34.8 g/dL03/27/2025 11:26 AM EDTMERCY RSGUISQQBKOLQWQ08.711.8 - 14.4 %03/27/2025 11:26 AM EDTMERCY HXGMXRDWJAIWQbxgelgko713466 - 453 k/uL 03/27/2025 11:26 AM EDTMERCY XEDBDSHIYFWXHUO76.18.1 - 13.5 fL03/27/2025 11:26 AM EDTMERCY LABORATORIESNRBC Automated0.00.0 per 100 WBC03/27/2025 11:26 AM EDTMERCY LABORATORIESSpecimen (Source)Anatomical Location / Laterality Collection Method / VolumeCollection TimeReceived TimeBLOOD SPECIMEN / Unknown 03/27/2025 11:26 AM EDT1 12:04 PM EDT Narrative Authorizing ProviderResult TypeResult StatusMarvel Ng MDHEMATOLOGY ORDERABLESFinal ResultPerforming OrganizationAddressCity/State/ZIP CodePhone Number [facility] [address] [place] [address], [facility] [phone] * US GI ENDOSCOPIC S&I (03/26/2025 11:44 PM EDT)Specimen (Source)Anatomical Location / LateralityCollection Method / VolumeCollection TimeReceived Time Narrative MHPN RIS CONSOLIDATED - 03/26/2025 11:44 PM EDT Radiology exam is complete. No Radiologist dictation. Please follow up with ordering provider. Authorizing ProviderResult TypeResult StatusSyed Diego WORKMAN US ORDERABLESFinal ResultPerforming OrganizationAddressCity/State/ZIP CodePhone Number [facility] CONSOLIDATED * FLUORO FOR SURGICAL PROCEDURES (03/26/2025 6:17 PM EDT)Specimen (Source) Anatomical Location / LateralityCollection Method / VolumeCollection Time Received Time Narrative [facility] CONSOLIDATED - 03/26/2025 6:17 PM EDT Radiology exam is complete. No Radiologist dictation. Please follow up with ordering provider. 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 [phone] * SURGICAL PATHOLOGY REPORT (03/26/2025 9:22 AM EDT)ComponentValueRef RangeTest MethodAnalysis TimePerformed AtPathologist SignatureSurgical Pathology Report Path Number: [id number] -- Diagnosis -- A. ??STOMACH, BIOPSY: - [...] will be forwarded in consultation to the [facility] for an expert second opinion. ??Their findings will be forthcoming in a supplemental report. Tye Dodson D.O. Electronically Signed Out ? lj/03/28/2025 Clinical Information Pre-op diagnosis: ??COMMON BILE DUCT STRUCTURE (HCC) ?? Operative Findings: STOMACH BX; ABNORMAL MUSCOSA PART OF THE DUODENUM BX Operative Performed: ??ENDOSCOPIC RETROGRADE CHOLANGIOPANCREATOGRAPHY; ENDOSCOPIC ULTRASOUND, PATHOLOGY; ESOPHAGOGASTRODUODENOSCOPY BIOPSY ko Source of Specimen A: STOMACH BIOPSY B: ABNORMAL MUCOSA SECOND PART OF THE DUODENUM BX Gross Description A. ?? ENEIDA MEJIA STOMACH BX Received in formalin are three mcintosh fragments from 0.2 to 0.5 cm and are 1.1 x 0.2 x 0.2 cm in aggregate. Entirely 1cs. ?? B. ?? ENEIDA MEJIA, ABNORMAL MUCOSA PART OF THE DUODENUM BX Received in formalin is one maher fragment, 0.3 x 0.3 x 0.2 cm. ??Entirely 1cs. jj Gia Sykes M.D./ko:03/27/2025 Microscopic Description A, B. Microscopic examination performed. ?? Processing Lab: ??[address] [address] Interpretation Performed at [address] [address] SURGICAL PATHOLOGY CONSULTATION Patient Name: ENEIDA MEJIA [facility] Rec: [id number] [facility] ??LABORATORIES [facility] ANATOMIC PATHOLOGY [address] [place] [address]. ??[place], [place] [address] bMARIA PARHAM HEALTHJust Gotta Make It AdvertisingSpecimen (Source)Anatomical Location / LateralityCollection Method / VolumeCollection TimeReceived Time 03/26/2025 9:22 AM EDT1 Narrative Authorizing ProviderResult TypeResult StatusSyed Diego Harper MD PATHOLOGY/CYTOLOGY ORDERABLESFinal ResultPerforming OrganizationAddress City/State/ZIP CodePhone Number [facility] [address] [place] [address] [facility] * (ABNORMAL) Comprehensive Metabolic Panel w/ Reflex to MG (03/26/2025 6:46 AM EDT)ComponentValueRef RangeTest MethodAnalysis TimePerformed AtPathologist KyfvfdszvNhskxw404(L)136 - 145 mmol/L1 6:46 AM EDTM[facility]CY LABORATORIES Potassium3.6(L)3.7 - 5.3 mmol/L1 6:46 AM [facility]TM[facility]OR[facility] Wkwytnmr73876 - 107 mmol/L1 6:46 AM EDTMERCY XFYOKCKPYMCTVH47863 - 31 mmol/L1 6:46 AM EDTMERCY LABORATORIESAnion Gap7(L)9 - 16 mmol/L 03/26/2025 6:46 AM EDTMERCY MUKGSUYNMTXUZvsnsaf0562 - 99 mg/dL03/26/2025 6:46 AM EDTMERCY LABORATORIESBUN<2(L)6 [...] 6:46 AM EDTMERCY LABORATORIESAlbumin/Globulin Ratio0.9 (L)1.0 - 2.510 6:46 AM EDTMERCY LABORATORIESTotal Bilirubin5.0(H)0.0 - 1.2 mg/dL03/26/2025 6:46 AM EDTMERCY LABORATORIESAlkaline Yqfskzzssvd045(H)35 - 104 U/L1 6:46 AM EDTMERCY SXRYPZVDAIXRYHD26(H)10 - 35 U/L1 6:46 AM EDTMERCY LMDSXINSIMXTSUK09(H)10 - 35 U/L1 6:46 AM EDTMERCY LABORATORIESSpecimen (Source)Anatomical Location / LateralityCollection Method / VolumeCollection TimeReceived TimeBloodBLOOD SPECIMEN / Ctqhbrx8103/26/2025 6:46 AM EDT1 7:20 AM EDT Narrative Authorizing ProviderResult TypeResult StatusHossBatson Children's Hospital MDCHEMISTRY ORDERABLESFinal ResultPerforming OrganizationAddressCity/State/[facility] CodePhone Number [facility] [address] [phone] * (ABNORMAL) CBC with Auto Differential (03/26/2025 6:46 AM EDT)ComponentValue Ref RangeTest MethodAnalysis TimePerformed AtPathologist YztohwkecPIY98.13.5 - 11.3 k/uL03/26/2025 6:46 AM EDTMERCY LABORATORIESRBC2.20(L)3.95 - 5.11 m/uL 03/26/2025 6:46 AM EDTMERCY LABORATORIESHemoglobin8.4(L)11.9 - 15.1 g/dL 03/26/2025 6:46 AM EDTMERCY TOPNATLXTABZHzxmlitnuu01.4(L)36.3 - 47.1 % 03/26/2025 6:46 AM EDTMERCY UQEREJQHZQMQWCT409.0(H)82.6 - 102.9 fL03/26/2025 6:46 AM EDTMERCY QUCBYDFDLRZPVCA56.2(H)25.2 - 33.5 pg03/26/2025 6:46 AM EDT [facility] UZZRFBNQXIIWPFVO17.828.4 - 34.8 g/dL03/26/2025 6:46 AM EDTMERCY TAGQCFIELOXJSWS42.011.8 - 14.4 %03/26/2025 6:46 AM [facility] Offcvznzp551910 - 453 k/uL03/26/2025 6:46 AM EDTMERCY KRCUXNETPSIGHLJ02.88.1 - 13.5 fL03/26/2025 6:46 AM EDTMERCY LABORATORIESNRBC Automated0.00.0 per 100 WBC03/26/2025 6:46 AM EDTMERCY LABORATORIESRBC MorphologyMACROCYTOSIS PRESENT 03/26/2025 6:46 AM EDTMERCY LABORATORIESImmature Granulocytes %1(H)0 % 03/26/2025 6:46 AM EDTMERCY LABORATORIESNeutrophils %83(H)36 - 65 %03/26/2025 6:46 AM EDTMERCY LABORATORIESLymphocytes %7(L)24 - 43 %03/26/2025 6:46 AM EDT [facility] LABORATORIESMonocytes %73 - 12 %03/26/2025 6:46 AM [...] - 0.20 k/uL03/26/2025 6:46 AM EDTMERCY LABORATORIESMorphologyMACROCYTOSIS NNXWGRV3103/26/2025 6:46 AM EDTMERCY LABORATORIESSpecimen (Source)Anatomical Location / LateralityCollection Method / VolumeCollection TimeReceived TimeBloodBLOOD SPECIMEN / Jraixsq6903/26/2025 6:46 AM EDT1 7:20 AM EDT Narrative Authorizing ProviderResult TypeResult StatusHoisma Andujar MDHEMATOLOGY ORDERABLESFinal ResultPerforming OrganizationAddressCity/State/ZIP CodePhone Number [address] [phone] * SURGICAL PATHOLOGY REPORT (03/26/2025 12:00 AM EDT)ComponentValueRef RangeTest MethodAnalysis TimePerformed AtPathologist SignatureSurgical Pathology Report Path Number: [id number] INTERPRETATION LYMPH NODE, VERNON HEPATIS, FINE NEEDLE [...] MICROSCOPIC DESCRIPTION Microscopic examination performed. ? Non Tilt Wall Supervisor Thin Prep x 1, Cell Block w/ H&E x 1 Processing Lab: [address] [address] Interpretation performed at [address] [address] NONGYNECOLOGICAL CYTOPATHOLOGY CONSULTATION Patient Name: ENEIDA MEJIA [facility] Rec: [id number] [facility] ??LABORATORIES CONSULTING PATHOLOGISTS [facility] ANATOMIC PATHOLOGY [address] [place] [address]. ??[place], [place] [address] [facility] LABSSpecimen (Source)Anatomical Location / LateralityCollection Method / VolumeCollection TimeReceived Time 9:56 AM EDT Narrative Authorizing ProviderResult TypeResult StatusSyed Diego Harper MD PATHOLOGY/CYTOLOGY ORDERABLESFinal ResultPerforming OrganizationAddress City/State/ZIP CodePhone Number [facility] [address] [place] [address], [facility] [phone] [facility] * (ABNORMAL) Comprehensive Metabolic Panel (03/26/2025 12:00 AM EDT)Component ValueRef RangeTest MethodAnalysis TimePerformed AtPathologist SignatureSodium 127(L)136 - 145 mmol/L1 12:00 AM EDTMERCY LABORATORIESPotassium3.5(L) 3.7 - 5.3 mmol/L1 12:00 AM EDTMERCY CJBPQBGQUKIVOvxsvenc8296 - 107 mmol/L1 12:00 AM EDTMERCY SJWLCXDRWTXRSA79245 - 31 mmol/L1 12:00 AM EDTMERCY LABORATORIESAnion Gap6(L)9 - 16 mmol/L1 12:00 AM EDTMERCY JYHFIQMGQQAMJighgow952(H)74 - 99 mg/dL03/26/2025 12:00 AM EDTMERCY LABORATORIESBUN<2(L)6 - 20 mg/dL03/26/2025 12:00 AM [facility] Creatinine0.3(L)0.6 - 0.9 mg/dL03/26/2025 12:00 AM [facility] Comment:Specimen icterus has exceeded the interference as defined by Francesco. Result may be affected.Est, Glom Filt Rate>90>60 mL/min/1.96m16803/26/2025 12:00 AM EDTMERCY LABORATORIESComment: ? These results [...] - 1.2 mg/dL03/26/2025 12:00 AM EDTMERCY LABORATORIESAlkaline Dhasygmrmff712(H) 35 - 104 U/L1 12:00 AM EDTMERCY OLJGGMBFLGTSCSG32(H)10 - 35 U/L 03/26/2025 12:00 AM EDTMERCY MSYCIGCOSYJAAQN55(H)10 - 35 U/L1 12:00 AM EDTMERCY LABORATORIESSpecimen (Source)Anatomical Location / LateralityCollection Method / VolumeCollection TimeReceived TimeBloodBLOOD SPECIMEN / Unknown 12:05 AM EDT Narrative Authorizing ProviderResult TypeResult StatusDilnoor Chloe MDCHEMISTRY ORDERABLES Final ResultPerforming OrganizationAddressCity/State/[facility] CodePhone Number [place] [phone] [place] [address], [facility] [phone] * (ABNORMAL) Basic Metabolic Panel w/ Reflex to MG (03/25/2025 8:16 PM EDT) ComponentValueRef RangeTest MethodAnalysis TimePerformed AtPathologist DeqsjkszlFcceca783(L)136 - 145 mmol/L1 8:16 PM EDTMERCY [facility]ORATORIES Potassium3.6(L)3.7 - 5.3 mmol/L1 8:16 PM EDTM[facility]OR[facility] Klumumws1754 - 107 mmol/L1 8:16 PM EDTMERCY JWEHOLINBIEPFB878(L)20 - 31 mmol/L1 8:16 PM EDTMERCY LABORATORIESAnion Yfi362 - 16 mmol/L 03/25/2025 8:16 PM EDTMERCY TTCCJUUIFLFUZzdvedx548(H)74 - 99 mg/dL03/25/2025 8:16 PM EDTMERCY LABORATORIESBUN<2(L)6 [...] MDCHEMISTRY ORDERABLES Final ResultPerforming OrganizationAddressCity/State/ZIP CodePhone Number [facility] [address] [place] [address] * PREVIOUS SPECIMEN (03/25/2025 3:59 PM EDT)Specimen (Source)Anatomical Location / LateralityCollection Method / VolumeCollection TimeReceived Time03/25/2025 3:59 PM EDT1 4:09 PM EDT Narrative Authorizing ProviderResult TypeResult StatusDilnoor Chloe MDCHEMISTRY ORDERABLES Final ResultPerforming OrganizationAddressty/State/ZIP CodePhone Number [facility] [address] [place], [place] [address] [phone] * (ABNORMAL) Vitamin B12 & Folate (03/25/2025 3:59 PM EDT)ComponentValueRef RangeTest MethodAnalysis TimePerformed AtPathologist SignatureVitamin B-12 >2000(H)232 - 1245 pg/mL03/25/2025 3:59 PM EDTMERCY WMDYPKUFYNYCGwvxnj14.5(H) 4.8 - 24.2 ng/mL03/25/2025 3:59 PM EDTMERCY LABORATORIESSpecimen (Source) Anatomical Location / LateralityCollection Method / VolumeCollection Time Received Time03/25/2025 3:59 PM EDT1 4:09 PM EDT Narrative Authorizing ProviderResult TypeResult StatusDilnoor Chloe MDCHEMISTRY ORDERABLES Final ResultPerforming OrganizationAddressCity/State/ZIP CodePhone Number [employer]life [facility] [address] [phone] * US ORGAN ELASTOGRAPHY (03/25/2025 12:16 PM [...] Liver stiffness measurements were obtained on a [employer] E9 unit with a C1-6-D transducer. ??12 [...] Liver stiffness measurements were obtained on a [employer] E9unit with a C1-6-D transducer. 12 valid [...] (cirrhosis, >11.9 kPa). Authorizing ProviderResult TypeResult StatusHoisma Andjuar MDAsh US ORDERABLES Final Result * (ABNORMAL) Ferritin (03/25/2025 6:51 AM EDT)ComponentValueRef RangeTest MethodAnalysis TimePerformed AtPathologist MwmwugufvSfivlona570(H)15 - 150 ng/mL03/25/2025 6:51 AM EDTMERCY LABORATORIESComment: ? FERRITIN Reference [...] MDCHEMISTRY ORDERABLES Final ResultPerforming OrganizationAddressCity/State/ZIP CodePhone Number [facility] [place] [address], [facility] [phone] * (ABNORMAL) Iron and TIBC (03/25/2025 6:51 AM EDT)ComponentValueRef RangeTest MethodAnalysis TimePerformed AtPathologist TjmopdhzxDxxm3986 - 145 ug/dL 03/25/2025 6:51 AM EDTMERCY MLUGDILKFBCTWKRU049(L)250 - 450 ug/dL03/25/2025 6:51 AM EDTMERCY LABORATORIESIron % Auyhtvghfk2792 - 55 %03/25/2025 6:51 AM EDTMERCY DWANAAKMLTFLJSRL11(L)112 - 347 ug/dL03/25/2025 6:51 AM EDTMERCY LABORATORIESSpecimen (Source)Anatomical Location / LateralityCollection Method / VolumeCollection TimeReceived Time03/25/2025 6:51 AM EDT1 8:25 AM EDT Narrative Authorizing ProviderResult TypeResult StatusDilnoor Chloe MDCHEMISTRY ORDERABLES Final ResultPerforming OrganizationAddressCity/State/ZIP CodePhone Number [place] [place] [address], [facility] [phone] * (ABNORMAL) Magnesium (03/25/2025 6:51 AM EDT)ComponentValueRef RangeTest MethodAnalysis TimePerformed AtPathologist SignatureMagnesium1.5(L)1.6 - 2.6 mg/dL03/25/2025 6:51 AM EDTMERCY LABORATORIESSpecimen (Source)Anatomical Location / LateralityCollection Method / VolumeCollection TimeReceived Time 03/25/2025 6:51 AM EDT1 8:25 AM EDT Narrative Authorizing ProviderResult TypeResult StatusDilnoor Chloe MDCHEMISTRY ORDERABLES Final ResultPerforming OrganizationAddressCity/State/ZIP CodePhone Number ROBYN Schroeder[address] [place] [address], [facility] [phone] * (ABNORMAL) Comprehensive Metabolic Panel w/ Reflex to MG (03/25/2025 6:51 AM EDT)ComponentValueRef RangeTest MethodAnalysis TimePerformed AtPathologist CghbhonuuTqvsta800(L)136 - 145 mmol/L1 6:51 AM EDTMERCY LABORATORIES Potassium2.9(LL)3.7 - 5.3 mmol/L1 6:51 AM EDTMERCY LABORATORIES Nkaijmfe65204 - 107 mmol/L1 6:51 AM EDTMERCY WNAACPSUAKOVES08342 - 31 mmol/L1 6:51 AM EDTMERCY LABORATORIESAnion Ejr147 - 16 mmol/L 03/25/2025 6:51 AM EDTMERCY BWPQQCXCQUQPYlbeseu69(L)74 - 99 mg/dL03/25/2025 6:51 AM EDTMERCY LABORATORIESBUN<2(L)6 [...] - 1.2 mg/dL03/25/2025 6:51 AM EDTMERCY LABORATORIESAlkaline Gvktsgfqawo386(H)35 - 104 U/L1 6:51 AM EDTMERCY OTGVJCXIBTTGPOI31(H)10 - 35 U/L10 6:51 AM EDTMERCY PHDIMCMQUMOIIEX84(H)10 - 35 U/L1 6:51 AM EDTMERCY LABORATORIESSpecimen (Source)Anatomical Location / LateralityCollection Method / VolumeCollection TimeReceived TimeBloodBLOOD SPECIMEN / Jpuaomy5703/25/2025 6:51 AM EDT1 8:25 AM EDT Narrative Authorizing ProviderResult TypeResult StatusHossein [facility] MDCHEMISTRY ORDERABLESFinal ResultPerforming OrganizationAddressCity/State/ZIP CodePhone Number [place] [phone] [place] [address], [facility] [phone] * (ABNORMAL) CBC with Auto Differential (03/25/2025 6:51 AM EDT)ComponentValue Ref RangeTest MethodAnalysis TimePerformed AtPathologist NdwkufwhwRWD93.8(H) 3.5 - 11.3 k/uL03/25/2025 6:51 AM EDTMERCY LABORATORIESRBC2.14(L)3.95 - 5.11 m/uL03/25/2025 6:51 AM EDTMERCY LABORATORIESHemoglobin8.1(L)11.9 - 15.1 g/dL 03/25/2025 6:51 AM EDTMERCY ULHOITCMCOOGYlyyfrcckt32.5(L)36.3 - 47.1 % 03/25/2025 6:51 AM EDTMERCY UEOIPGKJOVWBYWW383.2(H)82.6 - 102.9 fL03/25/2025 6:51 AM EDTMERCY MFGCXIYZHCUARJQ60.9(H)25.2 - 33.5 pg03/25/2025 6:51 AM EDT [employer] TNEDLBQQXKXAMPFU89.828.4 - 34.8 g/dL03/25/2025 6:51 AM EDTMERCY GZLJZNEZEMAKYNW70.211.8 - 14.4 %03/25/2025 6:51 AM EDTMERCY LABORATORIES Wvifezzfc636100 - 453 k/uL03/25/2025 6:51 AM EDTMERCY APOMMLPDRTYHRRO06.38.1 - 13.5 fL03/25/2025 6:51 AM EDTMERCY LABORATORIESNRBC [...] - 0.20 k/uL03/25/2025 6:51 AM EDTMERCY LABORATORIESMorphologyMACROCYTOSIS PCQHZLO9103/25/2025 6:51 AM EDTMERCY LABORATORIESSpecimen (Source)Anatomical Location / LateralityCollection Method / VolumeCollection TimeReceived TimeBloodBLOOD SPECIMEN / Uqptxvx7703/25/2025 6:51 AM EDT1 8:25 AM EDT Narrative Authorizing ProviderResult TypeResult StatusHosshany Andujar MDHEMATOLOGY ORDERABLESFinal ResultPerforming OrganizationAddressCity/State/ZIP CodePhone Number [place] [id number] [place] [address], [facility] [phone] * SURGICAL PATHOLOGY REPORT (03/25/2025 12:00 AM EDT)ComponentValueRef RangeTest MethodAnalysis TimePerformed AtPathologist SignatureSurgical Pathology Report Path Number: [id number] -- Diagnosis -- A. ??Stomach, biopsy: - [...] 0.2 cm. ??Entirely 1cs. C. ?? ENEIDA MEJIA, SIGMOID COLON POLYPS BX Received in formalin are three mcintosh-white tissue fragments from 0.1 to 0.5 cm and are 0.8 x 0.2 x 0.2 cm in aggregate. ??Entirely 1cs. ??jj tm Laly Teresita/se:03/25/2025 Microscopic Description A-C. Microscopic examination performed. Processing Lab: ??[address] [id number] Interpretation Performed at [address] [id number] SURGICAL PATHOLOGY CONSULTATION Patient Name: ENEIDA MEJIA [facility] Rec: [id number] [facility] ??[facility]ATORIES [facility] ANATOMIC PATHOLOGY [address] [place] [address]. ??[place] [phone] [facility] Hibernater LABSSpecimen (Source)Anatomical Location / LateralityCollection Method / VolumeCollection TimeReceived Time 10:59 AM EDT Narrative Authorizing ProviderResult TypeResult StatusHosshany Andujar MDPATHOLOGY/CYTOLOGY ORDERABLESFinal ResultPerforming OrganizationAddressCity/State/ZIP CodePhone Number [facility] YOUNGSTOWNGirly Stuff [address] [place] [address] [facility] * MRI ABDOMEN W WO CONTRAST [...] Severe loss of signal intensity seen on fbx-ch-dfgzv imaging consistent with severe hepatic steatosis. Mild [...] Severe loss of signal intensity seen on vgq-qz-gkxbf imaging consistentwith severe hepatic steatosis. Mild hepatomegaly [...] of cholecystitis. Authorizing ProviderResult TypeResult StatusAimee Miester KILN STACKER - NPIMG MRI ORDERABLESFinal Result * (ABNORMAL) Comprehensive Metabolic Panel w/ Reflex to MG (03/24/2025 6:30 AM EDT)ComponentValueRef RangeTest MethodAnalysis TimePerformed AtPathologist WsogpqxphVtmtqj182(L)136 - 145 mmol/L1 6:30 AM EDTMERCY [facility]ATORIES Potassium3.73.7 - 5.3 mmol/L1 6:30 AM EDTMERCY LABORATORIESChloride 30193 - 107 mmol/L1 6:30 AM EDTMERCY ZERDDQZUPJYOOX49935 - 31 mmol/L 03/24/2025 6:30 AM EDTMERCY LABORATORIESAnion Nlx615 - 16 mmol/L1 6:30 AM EDTMERCY SZDTLTLOHHJKPwlyskv8143 - 99 mg/dL03/24/2025 6:30 AM EDTMERCY LABORATORIESBUN2(L)6 - 20 mg/dL03/24/2025 6:30 AM EDTMERCY [facility]ORATOR[facility] Creatinine0.4(L)0.6 - 0.9 mg/dL03/24/2025 6:30 AM EDTMERCY LABORATORIES Comment:Specimen icterus has exceeded the interference as defined by Francesco. Result may be affected.Est, Glom Filt Rate>90>60 mL/min/1.95p01103/24/2025 6:30 AM EDTMERCY LABORATORIESComment: ? These results [...] - 1.2 mg/dL03/24/2025 6:30 AM EDTMERCY LABORATORIESAlkaline Yumpmrlbryt908(H)35 - 104 U/L1 6:30 AM EDTMERCY LPPDYTTNKMITAOI44(H)10 - 35 U/L1 6:30 AM EDTMERCY QIYROSYMLCJFGAM935(H)10 - 35 U/L1 6:30 AM EDTMERCY LABORATORIESSpecimen (Source)Anatomical Location / LateralityCollection Method / VolumeCollection TimeReceived TimeBloodBLOOD SPECIMEN / Dleoumw1003/24/2025 6:30 AM EDT1 7:03 AM EDT Narrative Authorizing ProviderResult TypeResult StatusHossein Pratima MDCHEMISTRY ORDERABLESFinal ResultPerforming OrganizationAddressCity/State/ZIP CodePhone Number [facility] [address] [place] [address], [facility] [phone] * (ABNORMAL) CBC with Auto Differential (03/24/2025 6:30 AM EDT)ComponentValue Ref RangeTest MethodAnalysis TimePerformed AtPathologist ZeeludjtxGCY43.5(H) 3.5 - 11.3 k/uL03/24/2025 6:30 AM EDTMERCY LABORATORIESRBC2.35(L)3.95 - 5.11 m/uL03/24/2025 6:30 AM EDTMERCY LABORATORIESHemoglobin8.9(L)11.9 - 15.1 g/dL 03/24/2025 6:30 AM EDTMERCY DLGCYDQZBLPDFwcrjrgrof77.1(L)36.3 - 47.1 % 03/24/2025 6:30 AM EDTMERCY DSQRRNDFVBVWPKN315.6(H)82.6 - 102.9 fL03/24/2025 6:30 AM EDTMERCY TMVOSAHURJNWQXR60.9(H)25.2 - 33.5 pg03/24/2025 6:30 AM EDT [facility] BEACHMCHC31.728.4 - 34.8 g/dL03/24/2025 6:30 AM EDTMERCY KJOMULIEZILLXGN74.6(H)11.8 - 14.4 %03/24/2025 6:30 AM EDTMERCY LABORATORIES Bxtwzvlad085469 - 453 k/uL03/24/2025 6:30 AM EDTMERCY XHSYSWRMCSACJUQ46.88.1 - 13.5 fL03/24/2025 6:30 AM EDTMERCY LABORATORIESNRBC [...] - 0.20 k/uL03/24/2025 6:30 AM EDTMERCY LABORATORIESMorphologyANISOCYTOSIS XDGQOMF1303/24/2025 6:30 AM EDTMERCY LABORATORIESMorphologyMACROCYTOSIS AJDGDDC6603/24/2025 6:30 AM EDTMERCY LABORATORIESSpecimen (Source)Anatomical Location / LateralityCollection Method / VolumeCollection TimeReceived TimeBloodBLOOD SPECIMEN / Nculqbo3803/24/2025 6:30 AM EDT1 7:03 AM EDT Narrative Authorizing ProviderResult TypeResult StatusHosshany Andujar MDHEMATOLOGY ORDERABLESFinal ResultPerforming OrganizationAddressCity/State/ZIP CodePhone Number [place] [address] [place] [address], [facility] [phone] * Protime-INR (03/24/2025 6:30 AM EDT)ComponentValueRef RangeTest MethodAnalysis TimePerformed AtPathologist YdnqrkbweNemyqyc39.911.7 - 14.9 sec03/24/2025 6:30 AM EDTMERCY LABORATORIESINR1. 6:30 AM EDTMERCY LABORATORIES Comment: ? Therapeutic Range: Moderate Anticoagulant Intensity: INR = 2.0-3.0 High Anticoagulant Intensity: INR = 2.5-3.5 Specimen (Source)Anatomical Location / LateralityCollection Method / Volume Collection TimeReceived TimeBloodBLOOD SPECIMEN / Kgxxjje7503/24/2025 6:30 AM EDT 03/24/2025 7:03 AM EDT Narrative Authorizing ProviderResult TypeResult StatusChristine [facility] APNHEMATOLOGY ORDERABLESFinal ResultPerforming OrganizationAddressCity/State/[facility] CodePhone Number [place] [address] [place] [address], [facility] [phone] * (ABNORMAL) Comprehensive Metabolic Panel (03/24/2025 12:48 AM EDT)Component ValueRef RangeTest MethodAnalysis TimePerformed AtPathologist SignatureSodium 129(L)136 - 145 mmol/L1 12:48 AM EDTMERCY LABORATORIESPotassium3.6(L) 3.7 - 5.3 mmol/L1 12:48 AM EDTMERCY RVZIXLDYGNMAWuamuwsc23(L)98 - 107 mmol/L1 12:48 AM EDTMERCY TGIHYEGHZABGSY57896 - 31 mmol/L1 12:48 AM EDTMERCY LABORATORIESAnion Vqa319 - 16 mmol/L1 12:48 AM EDT [facility] YOU[facility]STOWNGuitar Party XBXMZVWQTSFVWnpwzop8809 - 99 mg/dL03/24/2025 12:48 AM EDTMERCY LABORATORIESBUN3(L)6 - 20 mg/dL03/24/2025 12:48 AM EDTMERCY LABORATOR[facility] Creatinine0.3(L)0.6 - 0.9 mg/dL03/24/2025 12:48 AM EDTMERCY LABORATORIES Comment:Specimen icterus has exceeded the interference as defined by Francesco. Result may be affected.Est, Glom Filt Rate>90>60 mL/min/1.27k95203/24/2025 12:48 AM EDTMERCY LABORATORIESComment: ? These results [...] - 1.2 mg/dL03/24/2025 12:48 AM EDTMERCY LABORATORIESAlkaline Quuyapkqvnv598(H) 35 - 104 U/L1 12:48 AM EDTMERCY PEKVDKNSTBMAKCV18(H)10 - 35 U/L 03/24/2025 12:48 AM EDTMERCY ZPXZQNBGSHNFTKU364(H)10 - 35 U/L1 12:48 AM EDTMERCY LABORATORIESSpecimen (Source)Anatomical Location / Laterality Collection Method / VolumeCollection TimeReceived TimeBloodBLOOD SPECIMEN / Umzgcas4503/24/2025 12:48 AM EDT1 1:01 AM EDT Narrative Authorizing ProviderResult TypeResult StatusDilnoor Chloe MDCHEMISTRY ORDERABLES Final ResultPerforming OrganizationAddressCity/State/ZIP CodePhone Number [facility] [address] [place] [address], [facility] [phone] * C DIFF TOXIN/ANTIGEN (03/23/2025 6:24 PM EDT)ComponentValueRef RangeTest MethodAnalysis TimePerformed AtPathologist SignatureSpecimen Description.FECES 03/23/2025 6:24 PM EDTMERCY LABORATORIESC DIFF AG + TOXINNEGATIVENEGATIVE 03/23/2025 6:24 PM EDTMERCY LABORATORIESComment:No C. difficile antigen and Toxin Detected.Specimen (Source)Anatomical Location / LateralityCollection Method / VolumeCollection TimeReceived TimeSTOOL SPECIMEN / Fkmwxpd7003/23/2025 6:24 PM EDT1 6:24 PM EDT Narrative Authorizing ProviderResult TypeResult StatusChrisHighsmith-Rain[facility] APNMICROBIOLOGY - GENERAL ORDERABLESFinal ResultPerforming OrganizationAddressCity/State/ZIP CodePhone Number [facility] [address] [place] [address], [facility] [phone] * Gastrointestinal Panel, Molecular (03/23/2025 6:24 PM EDT)ComponentValueRef RangeTest MethodAnalysis TimePerformed AtPathologist SignatureSpecimen Description.FECES03/23/2025 6:24 PM EDTMERCY LABORATORIESCampylobacter PCR NEGATIVE: No Campylobacter spp. (jejuni or coli) DNA DetectedNEGATIVE: No Campylobacter spp. (jejuni or coli) DNA Esylhgd80/11/2025 6:24 PM EDTMERCY LABORATORIESSalmonella PCRNEGATIVE: No Salmonella spp. DNA DetectedNEGATIVE: No Salmonella spp. DNA Twsfpjjd45/11/2025 6:24 PM EDTMERCY LABORATORIES Shigatoxin Gene PCRNEGATIVE: No Shiga toxin-producing gene(s) Detected NEGATIVE: No Shiga toxin-producing gene(s) Wvhyjexh07/11/2025 6:24 PM EDTMERCY LABORATORIESShigella Sp PCRNEGATIVE: No Shigella spp. / EIEC DNA Detected NEGATIVE: No Shigella spp. / EIEC DNA Ejtoiehr73/11/2025 6:24 PM EDTMERCY LABORATORIESPlesiomonas Shigelloides PCRNEGATIVE: No Plesionomas shigelloides DNA DetectedNEGATIVE: No Plesionomas shigelloides DNA Amziynwg89/11/2025 6:24 PM EDTMERCY LABORATORIESVibrio PCRNEGATIVE: No Vibrio [...] enterocolitica DNA DetectedNEGATIVE: No Yersinia enterocolitica DNA Tcuowisn47/11/2025 6:24 PM EDTMERCY LABORATORIESSpecimen (Source)Anatomical Location / LateralityCollection Method / VolumeCollection TimeReceived TimeSTOOL SPECIMEN / Tneduxq0503/23/2025 6:24 PM EDT1 6:24 PM EDT Narrative Authorizing ProviderResult TypeResult StatusChristine M Alexa APNMICROBIOLOGY - GENERAL ORDERABLESFinal ResultPerforming OrganizationAddressCity/State/ZIP CodePhone Number [place] [address] [place] [address], [facility] [phone] * (ABNORMAL) Magnesium (03/23/2025 2:24 PM EDT)ComponentValueRef RangeTest MethodAnalysis TimePerformed AtPathologist SignatureMagnesium1.4(L)1.6 - 2.6 mg/dL03/23/2025 2:24 PM EDTMERCY LABORATORIESSpecimen (Source)Anatomical Location / LateralityCollection Method / VolumeCollection TimeReceived Time 03/23/2025 2:24 PM EDT1 2:37 PM EDT Narrative Authorizing ProviderResult TypeResult StatusDilnoor Chloe MDCHEMISTRY ORDERABLES Final ResultPerforming OrganizationAddressMer[facility]/State/ZIP CodePhone Number [place] [address] [place] [address], [facility] [phone] * (ABNORMAL) Basic Metabolic Panel w/ Reflex to MG (03/23/2025 2:24 PM EDT) ComponentValueRef RangeTest MethodAnalysis TimePerformed AtPathologist KqodprntiRflqtj810(L)136 - 145 mmol/L1 2:24 PM EDTMERCY LABORATORIES Potassium3.5(L)3.7 - 5.3 mmol/L1 2:24 PM EDTMERCY LABORATORIES Flqtfwfv73(L)98 - 107 mmol/L1 2:24 PM EDTMERCY HCJCUNVPBTBVZW64641 - 31 mmol/L1 2:24 PM EDTMERCY LABORATORIESAnion For393 - 16 mmol/L 03/23/2025 2:24 PM EDTMERCY LHCHFYTIJEGNVupkvvw7731 - 99 mg/dL03/23/2025 2:24 PM EDTMERCY LABORATORIESBUN5(L)6 [...] MDCHEMISTRY ORDERABLES Final ResultPerforming OrganizationAddressCity/State/ZIP CodePhone Number [facility] YOUNGSTOWNGuitar Party [facility] [address] [place] [address], [facility] [phone] * (ABNORMAL) Protime-INR (03/23/2025 5:20 AM EDT)ComponentValueRef RangeTest MethodAnalysis TimePerformed AtPathologist IqekpxpqqCajbmak67.0(H)11.7 - 14.9 sec03/23/2025 5:20 AM EDTMERCY LABORATORIESINR1. 5:20 AM EDTMERCY LABORATORIESComment: ? Therapeutic Range: Moderate Anticoagulant Intensity: INR = 2.0-3.0 High Anticoagulant Intensity: INR = 2.5-3.5 Specimen (Source)Anatomical Location / LateralityCollection Method / Volume Collection TimeReceived TimeBloodBLOOD SPECIMEN / Jzofuzl7603/23/2025 5:20 AM EDT 03/23/2025 5:47 AM EDT Narrative Authorizing ProviderResult TypeResult StatusAimee Miester KILN STACKER - NPHEMATOLOGY ORDERABLESFinal ResultPerforming OrganizationAddressCity/State/ZIP CodePhone Number [place] [address] [place] [address], [facility] [phone] * TSH reflex to FT4 (03/23/2025 5:20 AM EDT)ComponentValueRef RangeTest Method Analysis TimePerformed AtPathologist SignatureTSH1.960.27 - 4.20 uIU/mL 03/23/2025 5:20 AM EDTMERCY LABORATORIESSpecimen (Source)Anatomical Location / LateralityCollection Method / VolumeCollection TimeReceived Time03/23/2025 5:20 AM EDT1 5:47 AM EDT Narrative Authorizing ProviderResult TypeResult StatusAimee Miester KILN STACKER - NPCHEMISTRY ORDERABLESFinal ResultPerforming OrganizationAddressCity/State/ZIP CodePhone Number [place] [address] [place] [address], [facility] [phone] * (ABNORMAL) Lipid, Fasting (03/23/2025 5:20 AM EDT)ComponentValueRef RangeTest MethodAnalysis TimePerformed AtPathologist SignatureCholesterol, Ivhiegi971(H) 0 - 199 mg/dL03/23/2025 5:20 AM EDTMERCY LABORATORIESComment: Cholesterol Guidelines: <200 Desirable 200-240 ??Borderline >240 Undesirable HDL22(L)>40 mg/dL03/23/2025 5:20 AM EDTMERCY LABORATORIESComment: HDL Guidelines: <40 Undesirable 40-59 ?Borderline >59 Desirable LDL Ddkhbypitzi245(H)0 - 100 mg/dL03/23/2025 5:20 AM EDTMERCY LABORATORIES Comment: LDL Guidelines: <100 Desirable 100-129 ?? Near to/above Desirable 130-159 ?? Borderline >159 Undesirable Direct (measured) LDL and calculated LDL are not interchangeable tests. Chol/HDL Ratio16.3(H)<5.010 5:20 AM EDTMERCY LABORATORIESTriglyceride, Fcvmyhz1623 - 149 mg/dL03/23/2025 5:20 AM EDTMERCY LABORATORIESComment: Triglyceride Guidelines: <150 Desirable 150-199 ??Borderline 200-499 ??High >499 Very high Based on AHA Guidelines for fasting triglyceride, March 2012. LOIZ857 - 30 mg/dL03/23/2025 5:20 AM EDTMERCY LABORATORIESSpecimen (Source) Anatomical Location / LateralityCollection Method / VolumeCollection Time Received TimeBloodBLOOD SPECIMEN / Zadtltn1803/23/2025 5:20 AM EDT1 5:47 AM EDT Narrative Authorizing ProviderResult TypeResult StatusAimee Miester KILN STACKER - NPCHEMISTRY ORDERABLESFinal ResultPerforming OrganizationAddressCity/State/[facility] CodePhone Number [place] [phone] [place] [address], [facility] [phone] * (ABNORMAL) CBC auto differential (03/23/2025 5:20 AM EDT)ComponentValueRef RangeTest MethodAnalysis TimePerformed AtPathologist WaoqqwxtrVZT16.8(H)3.5 - 11.3 k/uL03/23/2025 5:20 AM EDTMERCY LABORATORIESRBC2.07(L)3.95 - 5.11 m/uL 03/23/2025 5:20 AM EDTMERCY LABORATORIESHemoglobin7.8(L)11.9 - 15.1 g/dL 03/23/2025 5:20 AM EDTMERCY RNNDCLQNWOKEGyzvsgjrxm21.1(L)36.3 - 47.1 % 03/23/2025 5:20 AM EDTMERCY NGHVZHTHXSHAGDS511.4(H)82.6 - 102.9 fL03/23/2025 5:20 AM EDTMERCY ZHCFURWMVJYBKXD06.7(H)25.2 - 33.5 pg03/23/2025 5:20 AM EDT [employer] YJWCYOJHQLOVKAPT32.428.4 - 34.8 g/dL03/23/2025 5:20 AM EDTMERCY WUORATZKMPJLMQT31.7(H)11.8 - 14.4 %03/23/2025 5:20 AM EDTMERCY LABORATORIES Lcghkioqb335355 - 453 k/uL03/23/2025 5:20 AM EDTMERCY DFIOKFPCRGVMTOD39.78.1 - 13.5 fL03/23/2025 5:20 AM EDTMERCY LABORATORIESNRBC Automated0.2(H)0.0 per 100 WBC03/23/2025 5:20 AM EDTMERCY LABORATORIESImmature Granulocytes %2(H)0 % 03/23/2025 5:20 AM EDTMERCY LABORATORIESNeutrophils %84(H)36 - 65 %03/23/2025 5:20 AM EDTMERCY LABORATORIESLymphocytes %7(L)24 - 43 %03/23/2025 5:20 AM EDT [facility] [place] LABORATORIESMonocytes %53 - 12 %03/23/2025 5:20 AM [...] - 0.20 k/uL03/23/2025 5:20 AM EDTMERCY LABORATORIESMorphologyMACROCYTOSIS AVGWCZB3203/23/2025 5:20 AM EDTMERCY LABORATORIESMorphologyANISOCYTOSIS VAWSWDM2903/23/2025 5:20 AM EDTMERCY LABORATORIESSpecimen (Source)Anatomical Location / LateralityCollection Method / VolumeCollection TimeReceived Time03/23/2025 5:20 AM EDT1 5:47 AM EDT Narrative Authorizing ProviderResult TypeResult StatusAimee Miester KILN STACKER - NPHEMATOLOGY ORDERABLESFinal ResultPerforming OrganizationAddressCity/State/ZIP [place] [address], [facility] [phone] * Phosphorus (03/23/2025 5:20 AM EDT)ComponentValueRef RangeTest MethodAnalysis TimePerformed AtPathologist SignaturePhosphorus2.82.5 - 4.5 mg/dL03/23/2025 5:20 AM EDTMERCY LABORATORIESSpecimen (Source)Anatomical Location / Laterality Collection Method / VolumeCollection TimeReceived Time03/23/2025 5:20 AM EDT 03/23/2025 5:47 AM EDT Narrative Authorizing ProviderResult TypeResult StatusAimee Miester KILN STACKER - NPCHEMISTRY ORDERABLESFinal ResultPerforming OrganizationAddressCity/State/ZIP [place] [address], [facility] [phone] * (ABNORMAL) Magnesium (03/23/2025 5:20 AM EDT)ComponentValueRef RangeTest MethodAnalysis TimePerformed AtPathologist SignatureMagnesium1.2(L)1.6 - 2.6 mg/dL03/23/2025 5:20 AM EDTMERCY LABORATORIESSpecimen (Source)Anatomical Location / LateralityCollection Method / VolumeCollection TimeReceived Time 03/23/2025 5:20 AM EDT1 5:47 AM EDT Narrative Authorizing ProviderResult TypeResult StatusAimee Midevon KILN STACKER - NPCHEMISTRY ORDERABLESFinal ResultPerforming OrganizationAddressCity/State/ZIP CodePhone Number [facility] [address] [place] [address], [facility] [phone] * (ABNORMAL) Comprehensive Metabolic Panel w/ Reflex to MG (03/23/2025 5:20 AM EDT)ComponentValueRef RangeTest MethodAnalysis TimePerformed AtPathologist RcfafnkgoUbparl061(L)136 - 145 mmol/L1 5:20 AM EDTMERCY LABORATORIES Potassium2.8(LL)3.7 - 5.3 mmol/L1 5:20 AM EDTMERCY LABORATOR[facility] Ejboeklo85(L)98 - 107 mmol/L1 5:20 AM EDTMERCY RCKHIBWOBUZJUA88918 - 31 mmol/L1 5:20 AM EDTMERCY LABORATORIESAnion Lsq329 - 16 mmol/L 03/23/2025 5:20 AM EDTMERCY UBWUKIFXMLRAYqwqsrz8609 - 99 mg/dL03/23/2025 5:20 AM EDTMERCY ZCQMGUWBXYDRQJS30 - 20 mg/dL03/23/2025 5:20 AM EDTMERCY LABORATORIESCreatinine0.4(L)0.6 [...] 5:20 AM EDTMERCY LABORATORIESAlbumin/Globulin Ratio1.0 1.0 - 2.510 5:20 AM EDTMERCY LABORATORIESTotal Bilirubin6.6(H)0.0 - 1.2 mg/dL03/23/2025 5:20 AM EDTMERCY LABORATORIESAlkaline Usbojylnjgu427(H)35 - 104 U/L1 5:20 AM EDTMERCY CCIWIAHSXLKELIJ91(H)10 - 35 U/L1 5:20 AM EDTMERCY EKMMINDBLTMEFCU005(H)10 - 35 U/L1 5:20 AM EDTMERCY LABORATORIESSpecimen (Source)Anatomical Location / LateralityCollection Method / VolumeCollection TimeReceived Time03/23/2025 5:20 AM EDT1 5:47 AM EDT Narrative Authorizing ProviderResult TypeResult StatusAimee Miester KILN STACKER - NPCHEMISTRY ORDERABLESFinal ResultPerforming OrganizationAddressCity/State/ZIP CodePhone Number [facility] [address] [place] [address], [facility] [phone] * (ABNORMAL) Lipase (03/22/2025 9:34 PM EDT)ComponentValueRef RangeTest Method Analysis TimePerformed AtPathologist LtvchyxqyEzgprt60(L)13 - 60 U/L1 9:34 PM EDTMERCY LABORATORIESSpecimen (Source)Anatomical Location / LateralityCollection Method / VolumeCollection TimeReceived TimeBLOOD SPECIMEN / Wervnai0903/22/2025 9:34 PM EDT1 9:36 PM EDT Narrative Authorizing ProviderResult TypeResult StatusAimee Miester KILN STACKER - NPCHEMISTRY ORDERABLESFinal ResultPerforming OrganizationAddressCity/State/ZIP CodePhone Number [facility] [address] [place] [address], [facility] [phone] documented in this encounter Visit Diagnoses Diagnosis [...] gastritis and gastroduodenitis without mention of hemorrhage Anemia, unspecified type documented in this encounter Admitting Diagnoses Diagnosis Acute cholecystitis documented in this encounter Administered Medications Medication OrderMAR ActionAction DateDoseRateSite acetaminophen (TYLENOL) suppository 650 mg 650 mg, Rectal, EVERY 6 HOURS PRN, Starting on Tue03/22/25 at 1928, Until Tue03/31/25 at 191, Pain Mild (1-3) OR per [...] Oral, 3 TIMES DAILY PRN, Starting on Tue03/30/25 at 1102, Until Tue03/31/25 at 191, Anxiety Given03/30/2025 11:27 AM EDT0.25 mg aluminum & magnesium hydroxide-simethicone (MAALOX PLUS) 200-200-20 MG/5ML suspension 30 mL 30 mL, Oral, EVERY 6 HOURS PRN, Starting on Tue03/23/25 at 1947, Until Tue03/31/25 at 191, Indigestion Given03/27/2025 10:18 AM EDT30 mLs bisacodyl (DULCOLAX) suppository 10 mg 10 mg, Rectal, DAILY PRN, Starting on Tue03/27/25 at 1848, Until 03/31/25 at 1911, Constipation Given03/27/2025 6:50 PM EDT10 mg calcium carbonate (TUMS) chewable tablet 500 mg 500 mg, Oral, 3 TIMES DAILY PRN, Starting on 03/23/25 at 1946, Until 03/31/25 at 1911, Heartburn Given03/24/2025 2:47 PM HWX519 qbRtwfg9503/23/2025 7:56 PM IMU718 mg HYDROmorphone (DILAUDID) injection 0.25 mg 0.25 mg, IntraVENous, EVERY 3 HOURS PRN, Starting on Tue03/22/25 at 2014, Until 03/31/25 at 191, Pain Moderate (4-6) OR per patient request for pain score (7-10), Pain Severe (7-10), If oral and IV narcotics ordered, use oral first and only use IV if oral is ineffective or cannot take oral. Do Not give oral and IV within 1 hour of each other unless specifically ordered. Please hold for lethargy or respiratory rate <12b/m Given03/30/2025 7:59 AM EDT0.25 lhRsivs8403/29/2025 6:15 AM EDT0.25 mgGiven 03/28/2025 11:29 PM EDT0.25 mg magnesium sulfate 2000 mg in 50 [...] for use in Patients with CrCl<30ml/min Rate/Dose Ldamrb9403/25/2025 2:13 PM EDT25 mL/hrNew Bag03/25/2025 1:08 PM EDT2,000 mg25 mL/hr melatonin tablet 10 mg 10 mg, Oral, NIGHTLY PRN, Starting on Tue03/22/25 at 2016, Until Tue03/31/25 at 191, sleep Given03/30/2025 9:14 PM EDT10 luFdsoz5203/29/2025 10:15 PM EDT10 luRyoea6003/28/2025 11:29 PM EDT10 mg metroNIDAZOLE (METROCREAM) 0.75 % cream Topical, 2 TIMES DAILY, First dose on Tue03/24/25 at 2100, Apply to face . Given03/31/2025 10:07 AM IYHHcdqtFeoax49/18/2025 8:11 PM JDJHljtoWdcbx12/18/2025 8:08 AM EDTOther midodrine (PROAMATINE) tablet 10 mg 10 mg, Oral, 3 TIMES DAILY WITH MEALS, First dose (after last modification) on Tue03/25/25 at 1200, Until Discontinued, Do not give after 1800 or within 4 hrs of bedtime. Hold if SBP>130 Given03/30/2025 1:05 PM EDT10 cgRhdoo2903/29/2025 4:23 PM EDT10 mgDttro9503/29/2025 7:49 AM EDT10 mg ondansetron (ZOFRAN) injection 4 mg 4 mg, IntraVENous, EVERY 6 HOURS PRN, Starting on Tue03/22/25 at 1928, Until Tue03/31/25 at 191,Nausea, Vomiting, Administer if oral route cannot be used. ondansetron (ZOFRAN-ODT) disintegrating tablet 4 mg 4 mg, Oral, EVERY 8 HOURS PRN, Starting on Tue03/22/25 at 1928, Until Tue03/31/25 at 191, Nausea, Vomiting Given03/29/2025 1:30 PM EDT4 brHvxoo6003/22/2025 8:31 PM EDT4 mg oxyCODONE-acetaminophen (PERCOCET) 5-325 MG per tablet 1 tablet 1 tablet, Oral, EVERY 4 HOURS PRN, Starting on Tue03/26/25 at 1204, Until Tue03/31/25 at 191, Pain Severe (7-10), Maximum dose of acetaminophen is 4000 mg from all sources in 24 hours. Given03/31/2025 1:06 PM EDT1 zhfqjhQmxgc07/19/2025 6:19 AM EDT1 tabletGiven 03/31/2025 1:38 AM EDT1 tablet pantoprazole (PROTONIX) 40 mg in sodium chloride (PF) 0.9 % 10 mL injection 40 mg, IntraVENous, DAILY, First dose on Tue03/22/25 at 2045, Reconstitute each 40 mg vial with 10mL of 0.9% sodium chloride and administer each 40 mg vial over at least 2 minutes. Given03/31/2025 9:58 AM EDT40 mgZwmeg1703/30/2025 7:59 AM EDT40 fjNtrmq6503/29/2025 7:49 AM EDT40 mg polyethylene glycol (GLYCOLAX) packet 17 g 17 g, Oral, DAILY PRN, Starting on Tue03/29/25 at 2207, Until Tue03/31/25 at 191, Constipation, Stir and dissolve one packet of powder (17 g) in any 4 to 8 ounces of beverage (cold, hot or room temperature) then drink Given03/29/2025 10:20 PM EDT17 g potassium bicarb-citric acid (EFFER-K) effervescent tablet 40 mEq 40 mEq, Oral, PRN, Starting on Tue03/22/25 at 1928, Until Tue03/31/25 at 191, Per Potassium Replacement Protocol, Administer [...] 20 mEq, Oral, DAILY, First dose on Tue03/23/25 at 1345, Until Discontinued, Do not crush, chew, orsuck on tablet. Tablet may also be broken in half and each half swallowed separately. Given03/31/2025 9:58 AM EDT20 tIjGcafh81/18/2025 7:59 AM EDT20 mEqGiven 03/28/2025 9:17 AM EDT20 mEq potassium chloride (KLOR-CON M) extended release tablet 40 mEq 40 mEq, Oral, PRN, Starting on Tue03/22/25 at 192, Until Tue03/31/25 at 191, Potassium Replacement, May [...] and each half swallowed separately. potassium chloride 10 mEq/100 mL IVPB (Peripheral [...] with CrCl less than 30 mL/min. Rate/Dose Lafmpg9603/28/2025 4:15 PM UGN415 mL/hrRate/Dose Vbidco9803/27/2025 10:49 AM MWI114 mL/hrNew Bag03/25/2025 9:10 PM EDT10 pIv579 mL/hr rOPINIRole (REQUIP) tablet 0.25 mg 0.25 mg, Oral, NIGHTLY PRN, Starting on Tue03/22/25 at 2016, Until Tue03/31/25 at 1910, Restless legs Given03/30/2025 9:14 PM EDT0.25 diYppre8503/29/2025 10:15 PM EDT0.25 mgGiven 03/28/2025 11:29 PM EDT0.25 mg sodium chloride flush 0.9 % injection 10 mL 10 mL, IntraVENous, PRN, Starting on Tue03/24/25 at 0855, Until Tue03/31/25 at 1911, Line Care Given03/24/2025 9:32 AM EDT10 mLs [...] = 20 mL/lumen Given03/31/2025 10:01 AM EDT10 mFsQjhyc88/18/2025 8:11 PM EDT10 mLsGiven 03/30/2025 8:00 AM [...] * 0846 (Unheld by provider - Provider: Fred Tracy DO) * 1101 (Not Given - [...] surgery) * 0909 (Given - Provider: Isela Miller RN) furosemide (LASIX) injection 20 mg (COMPLETED) 20 mg, IntraVENous, ONCE, 1 dose, On Tue03/29/25 at 2230 * 2216 (Given - Provider: Stacey Chandra RN) indocyanine green (IC-GREEN) syringe 5 mg (COMPLETED) 5 mg, IntraVENous, ONCE, 1 dose, On Tue03/29/25 at 0915, Flush dye from catheter with NS to prevent hemolysis. Reconstitute vial with 10 mL of included Sterile Water diluent for final concentration of 2.5 mg/mL. * 0944 (Given - Provider: Isela Miller RN) magnesium sulfate 2000 mg in 50 mL IVPB premix (COMPLETED) 2,000 mg, IntraVENous, at 25 mL/hr, Administer over 2 Hours, ONCE, On 03/30/25 at 1130, For 1 dose * 1213 (New Bag - Provider: Chan Galvin RN) * 1415 (Stopped - Provider: Chan Galvin RN) * 1433 (Stopped - Provider: Chan Galvin, MARIAJOSE) metroNIDAZOLE (METROCREAM) 0.75 % cream Topical, 2 TIMES DAILY, First dose on Tue03/24/25 at 2100, Apply to face . * 0749 (Given - Provider: Didi Gipson RN - Comment: face) * 0839 (MAR Hold - Provider: Lacey Autohold - Reason: Unreviewed Transfer Orders) * 1325 (AUG Unhold - Provider: Didi Gipson RN) * 2053 (Given - Provider: Stacey Chandra RN - Comment: face) * 0808 (Given - Provider: Chan Galvin RN - Comment: face) * 2010 (Given - Provider: Stacey Chandra RN - Comment: face) * 1007 (Given - Provider: Chan Galvin RN - Comment: FACE- patient applied) midodrine (PROAMATINE) tablet 10 mg 10 mg, Oral, 3 TIMES DAILY WITH MEALS, First dose (after last modification) on Tue03/25/25 at 1200, Until Discontinued, Do not give after 1800 or within 4 hrs of bedtime. Hold if SBP>130 * 0749 (Given - Provider: Didi Gipson RN) * 0839 (AUG Hold - Provider: Lacey Autohold - Reason: Unreviewed Transfer Orders) * 1200 (Not Given - Provider: Didi Gipson RN - Reason: Order parameters not met) * 1325 ([facility] Unhold - Provider: Didi Gipson RN) * [...] within 4 hrs of bedtime. * 0839 (AUG Hold - Provider: Lacey Autohold - Reason: Unreviewed Transfer Orders) * 1325 ([facility] Unhold - Provider: Didi Gipson RN) pantoprazole (PROTONIX) 40 mg in sodium chloride (PF) 0.9 % 10 mL injection 40 mg, IntraVENous, DAILY, First dose on Tue03/22/25 at 2045, Reconstitute each 40 mg vial with 10mL of 0.9% sodium chloride and administer each 40 mg vial over at least 2 minutes. * 0749 (Given - Provider: Didi Gipson RN) * 0839 (AUG Hold - Provider: [facility] Aut[facility] - Reason: Unreviewed Transfer Orders) * 1325 (AUG Unhold - Provider: Didi Gipson RN) * [...] 0411 (New Bag - Provider: Giovanny El, MARIAJOSE) * 0811 (Stopped - Provider: Didi Gipson RN) * 0839 (AUG Hold - Provider: [facility] Autohold - Reason: Unreviewed Transfer Orders) * 1023 (Canceled Entry - Provider: Carmela Lopez APRN - NUCLEAR MEDICINE MEDICAL DIRECTOR) * 1200 (Not Given - Provider: Didi Gipson RN - Reason: Other - Comment: given in or) * 1325 (AUG Unhold - Provider: Didi Gipson RN) * 2050 (New Bag - Provider: Stacey Chandra, RN) * 0052 (Stopped - Provider: Chan Galvin, MARIAJOSE) * 0213 (Stopped - Provider: Stacey Chandra, RN) * 0358 (New Bag - Provider: Stacey Chandra, RN) * 0758 (Stopped - Provider: Chan Galvin, MARIAJOSE) * 1309 (New Bag - Provider: Chan Galvin, MARIAJOSE) * 1529 (Paused - Provider: Chan Galvin RN) * 1549 (Restarted - Provider: Chan Galvin RN) * 1616 (Rate/Dose Verify - Provider: Chan Galvin RN) * 1733 (Stopped - Provider: Chan Galvin RN) * 1813 (Stopped - Provider: Chan Galvin RN) * 2008 (New Bag - Provider: Stacey Chandra, RN) * 0116 (Stopped - Provider: Stacey Chandra, RN) potassium chloride (KLOR-CON M) extended release [...] - Provider: Didi Gipson RN) * 0839 ([facility] Hold - Provider: [facility] Autohold - Reason: Unreviewed Transfer Orders) * 1325 ([facility] Unhold - Provider: Didi Gipson, RN) * 2053 (Given - Provider: Stacey Chandra, RN) * 799 (Given - Provider: Chan Galvin, RN) * 2010 (Given - Provider: Stacey Chandra, RN) * 100 (Given - Provider: Chan Galvin, RN) Medication Order// 0.9 % sodium chloride infusion [...] into rate field of order. * 0839 ([facility] Hold - Provider: [facility] Autohold - Reason: Unreviewed Transfer Orders) * 1325 ([facility] Unhold - Provider: Didi Gipson, MARIAJOSE) acetaminophen (TYLENOL) suppository 650 mg(Linked Group 1) 650 mg, Rectal, EVERY 6 HOURS PRN, Starting on Tue03/22/25 at 1928, Until Tue03/31/25 at 191, Pain Mild (1-3) OR per patient request for pain score (4-10), Fever, For temp greater than 100.4 F (38C), Administer if oral route cannot be used. * 0839 ([facility] Hold - Provider: [facility] Autohold - Reason: Unreviewed Transfer Orders) * 1325 ([facility] Unhold - Provider: Didi Gipson, RN) acetaminophen (TYLENOL) tablet 650 mg(Linked Group 1) 650 mg, Oral, EVERY 6 HOURS PRN, Starting on Tue03/22/25 at 1928, Until Tue03/31/25 at 191, PainMild (1-3) OR per patient request for pain score (4-10), Fever, For temp greater than 100.4 F (38 C), Maximum dose of acetaminophen is 4000 mg from all sources in 24 hours. * 0839 ([facility] Hold - Provider: [facility] Autohold - Reason: Unreviewed Transfer Orders) * 1325 ([facility] Unhold - Provider: Didi Gipson, RN) ALPRAZolam (XANAX) tablet 0.25 mg 0.25 mg, Oral, 3 TIMES DAILY PRN, Starting on 03/30/25 at 1102, Until 03/31/25 at 1911, Anxiety * 1127 (Given - Provider: Chan Galvin, MARIAJOSE) aluminum & magnesium hydroxide-simethicone (MAALOX PLUS) 200-200-20 MG/5ML suspension 30 mL 30 mL, Oral, EVERY 6 HOURS PRN, Starting on 03/23/25 at 1947, Until 03/31/25 at 1911, Indigestion * 0839 ([facility] Hold - Provider: [facility] Autoh[facility] - Reason: Unreviewed Transfer Orders) * 1325 ([facility] Unhold - Provider: Didi Gipson, MARIAJOSE) bisacodyl (DULCOLAX) suppository 10 mg 10 mg, Rectal, DAILY PRN, Starting on Tue03/27/25 at 1848, Until 03/31/25 at 191, Constipation * 0839 ([facility] Hold - Provider: [facility] Autoh[facility] - Reason: Unreviewed Transfer Orders) * 1325 ([facility] Unhold - Provider: Didi Gipson, MARIAJOSE) BUPivacaine-EPINEPHrine PF (MARCAINE-w/EPINEPHrine) 0.5% -[id number] injection (CANCELED) PRN, Starting on Tue03/29/25 at 1026, Until Tue03/29/25 at 1150, Intra-op * 1026 (Given - Provider: Manjula Sue MD - Comment: INJECTED AT [facility]) calcium carbonate (TUMS) chewable tablet 500 mg 500 mg, Oral, 3 TIMES DAILY PRN, Starting on 03/23/25 at 1946, Until 03/31/25 at 1911, Heartburn * 0839 ([facility] Hold - Provider: [facility] Autoh[facility] - Reason: Unreviewed Transfer Orders) * 1325 ([facility] Unhold - Provider: Didi Gipson, RN) HYDROmorphone (DILAUDID) injection 0.25 mg 0.25 mg, [...] - Provider: Giovanny El RN) * 0839 ([facility] Hold - Provider: Lacey Autohold - Reason: Unreviewed Transfer Orders) * 1325 ([facility] Unhold - Provider: Didi Gipson RN) * [...] use in Patients with CrCl<30ml/min * 0839 ([facility] Hold - Provider: [facility] Autoh[facility] - Reason: Unreviewed Transfer Orders) * 1325 ([facility] Unhold - Provider: Didi Gipson, RN) melatonin tablet 10 mg 10 mg, Oral, NIGHTLY PRN, Starting on Tue03/22/25 at 2016, Until Tue03/31/25 at 1911, sleep * 0839 ([facility] Hold - Provider: [facility] Aut[facility] - Reason: Unreviewed Transfer Orders) * 1325 ([facility] Unhold - Provider: Didi Gipson, RN) * 2215 (Given - Provider: Stacey Chandra, RN) * 4 (Given - Provider: Stacey Chandra, RN) midazolam PF (VERSED) IntraVENous 2 mg (COMPLETED) 2 mg, IntraVENous, ONCE PRN, 1 dose, Starting on Tue03/29/25 at 1211, Until Tue03/29/25 at 1223, Anxiety, PACU only * 1223 (Given - Provider: Cris Chahal, MARIAJOSE) ondansetron (ZOFRAN) injection 4 mg(Linked Group 2) 4 mg, IntraVENous, EVERY 6 HOURS PRN, Starting on Tue03/22/25 at 1928, Until Tue03/31/25 at 1911,Nausea, Vomiting, Administer if oral route cannot be used. * 0839 ([facility] Hold - Provider: [facility] - Reason: Unreviewed Transfer Orders) * 1325 ([facility] Unhold - Provider: Didi Gipson, MARIAJOSE) * 1330 (See Alternative - Provider: Didi Gipson, MARIAJOSE) ondansetron (ZOFRAN-ODT) disintegrating tablet 4 mg(Linked Group 2) 4 mg, Oral, EVERY 8 HOURS PRN, Starting on Tue03/22/25 at 1928, Until Tue03/31/25 at 1911, Nausea, Vomiting * 0839 ([facility] Hold - Provider: [facility] - Reason: Unreviewed Transfer Orders) * 1325 ([facility] Unhold - Provider: Didi Gipson, RN) * 1330 (Given - Provider: Didi Gipson, MARIAJOSE) oxyCODONE-acetaminophen (PERCOCET) 5-325 MG per tablet 1 tablet 1 tablet, Oral, EVERY 4 HOURS PRN, Starting on Tue03/26/25 at 1204, Until Tue03/31/25 at 191, Pain Severe (7-10), Maximum dose of acetaminophen is 4000 mg from all sources in 24 hours. * 0839 ([facility] Hold - Provider: [facility] Aut[facility] - Reason: Unreviewed Transfer Orders) * 1325 ([facility] Unhold - Provider: Didi Gipson, RN) * 1330 (Given - Provider: Didi Gipson, RN) * 1821 (Given - Provider: [...] * 0619 (Given - Provider: Stacey Chandra, MARIAJOSE) * 1306 (Given - Provider: Chan Galvin, MARIAJOSE) polyethylene glycol (GLYCOLAX) packet 17 g 17 g, Oral, DAILY PRN, Starting on Tue03/29/25 at 2207, Until Tue03/31/25 at 191, Constipation, Stir and dissolve one packet of powder (17 g) in any 4 to 8 ounces of beverage (cold, hot or room temperature) then drink * 2220 (Given - Provider: Stacey Chandra, MARIAJOSE) potassium bicarb-citric acid (EFFER-K) effervescent tablet 40 mEq(Linked Group 3) 40 mEq, Oral, PRN, Starting on Tue03/22/25 at 1928, Until Tue03/31/25 at 191, Per Potassium Replacement Protocol, Administer [...] water; unflavored tablets may be dissolved in 3to 4 ounces of cold juice. Patient to sip slowly over a 5 to 10 minute period. May further dilute if GI adverse effects occur. * 0839 ([facility] Hold - Provider: [facility] Aut[facility] - Reason: Unreviewed Transfer Orders) * 1325 ([facility] Unhold - Provider: Didi Gipson, RN) potassium chloride (KLOR-CON M) extended release [...] and each half swallowed separately. * 0839 ([facility] Hold - Provider: Lacey Autohold - Reason: Unreviewed Transfer Orders) * 1325 ([facility] Unhold - Provider: Didi Gipson RN) potassium chloride 10 mEq/100 mL IVPB (Peripheral Line)(Linked Group 3) 10 mEq, IntraVENous, PRN, Starting on Tue03/22/25 at 1928, Until Tue03/31/25 at 191, at 100 mL/hr, Other, Potassium Replacement, K [...] CrCl less than 30 mL/min. * 0839 ([facility] Hold - Provider: [facility] Autoh[facility] - Reason: Unreviewed Transfer Orders) * 1325 ([facility] Unhold - Provider: Didi Gipson RN) rOPINIRole (REQUIP) tablet 0.25 mg 0.25 mg, Oral, NIGHTLY PRN, Starting on Tue03/22/25 at 2016, Until Tue03/31/25 at 191, Restless legs * 0839 ([facility] Hold - Provider: [facility] - Reason: Unreviewed Transfer Orders) * 1325 ([facility] Unhold - Provider: Didi Gipson, RN) * 2215 (Given - Provider: Stacey Chandra, RN) * 2114 (Given - Provider: Stacey Chandra, RN) sod chloride IRR soln 0.9 % irrigation (CANCELED) CONTINUOUS PRN, Starting on Tue03/29/25 at 0945, Intra-op * 0945 (New Bag - Provider: Manjula Sue MD - Comment: POURED TO BACK TABLE) * 1045 (New Bag - Provider: Manjula Sue MD - Comment: 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 Document the following action when infusion is complete: Stopped]) sodium chloride flush 0.9 % injection 10 mL 10 mL, IntraVENous, PRN, Starting on Tue03/22/25 at 1928, Until Tue03/31/25 at 1911, Line Care, After every IV line use * 0839 ([facility] Hold - Provider: [facility] Autoh[facility] - Reason: Unreviewed Transfer Orders) * 1325 ([facility] Unhold - Provider: Didi Gipson, RN) sodium chloride flush 0.9 % injection 10 mL 10 mL, IntraVENous, PRN, Starting on Tue03/24/25 at 0855, Until Tue03/31/25 at 1911, Line Care * 0839 ([facility] Hold - Provider: [facility] Autoh[facility] - Reason: Unreviewed Transfer Orders) * 1325 ([facility] Unhold - Provider: Didi Gipson, RN) Order Group 1: acetaminophen (TYLENOL) tablet 650 mgJump to med 650 mg, Oral, EVERY 6 HOURS PRN, Starting on Tue03/22/25 at 1928, Until Tue03/31/25 at 1911, PainMild (1-3) OR per patient request for pain score (4-10), Fever, For temp greater than 100.4 F (38 C), Maximum dose of acetaminophen is 4000 mg from all sources in 24 hours. Or acetaminophen (TYLENOL) suppository 650 mgJump to med 650 mg, Rectal, EVERY 6 HOURS PRN, Starting on Tue03/22/25 at 1927, Until Tue03/31/25 at 1910, Pain Mild (1-3) OR per patient request for pain score (4-10), Fever, For temp greater than 100.4 F (38C), Administer if oral route cannot be used. Group 2: ondansetron (ZOFRAN-ODT) disintegrating tablet 4 mgJump to med 4 mg, Oral, EVERY 8 HOURS PRN, Starting on Tue03/22/25 at 1927, Until Tue03/31/25 at 1910, Nausea, Vomiting Or [...] Tue03/22/25 at 1927, Until Tue03/31/25 at 1910, Per Potassium Replacement [...] MemberRelationshipSpecialtyStart DateEnd Sudhir Gonzalez MD [address] [id number] PCP - GeneralFamily Zyzyycic61/10/25documented as of this encounter
--- OUTSIDE RECORDS SUMMARY | 2025-03-25 09:39 | XMS_ITS | Encounter Summary ---
Author Organization [facility] Address [address], [address] [place] [address] Care Team Providers Care Grounds Maintenance Supervisor Name Role Phone Sudhir Gonzalez MD Primary Care Provider [phone] Reason for Visit * Auth/CertSpecialtyDiagnoses / ProceduresReferred By ContactReferred To Contact Diagnoses Acute cholecystitis [facility] [address] [place] [address] Phone: tel: [facility] [address] [place] [address] Referral IDStatusReasonStart DateExpiration DateVisits RequestedVisits [id number] Encounter Details DateTypeDepartmentCare Team (Latest Contact Info)Yaggbhmkxmr94/13/2025 9:39 AM EDTAnesthesia Event [facility] [address] [place] [address] Dianne Galeana MD [address] [address] [address] [place] [address] Anesthesia Record Procedure NameResponsible AnesthesiologistAnesthesia Start TimeAnesthesia Stop TimeESOPHAGOGASTRODUODENOSCOPY BIOPSYDianne Galeana MD03/25/25 [id number]/25/25 [id number]/13/[id number] StartLocation: {AN Start Location:[id number]}0939An Start [id number] InductionThe patient was reevaluated immediately before anesthesia induction.0943Anesthesia Houxx9821kg stop [id number] Handoff to RNVital signs are within acceptable limits and stable, SBAR handoff/transfer of care to RN. Patient Handoff Status: Level of Response: Awake Oxygen device: None (Room air) Airway Status: Patent BP: -- Pulse: -- SpO2: -- Respirations: -- Temp: -- Temp Source: -- Disposition: PACU PACU Checklist: Identification of patient;Identification of responsible practitioner (PACU Nurse or advanced practitioner);Discussion of the surgical/procedure course (procedure, reason for surgery, procedure performed);Discussion of pertinent medical history;Intraoperative anesthetic management and issues/concerns;Expec tations/plans for the early post-procedure period;Opportunity for questions and acknowledgement of understanding of report from the receiving PACU [id number] Stop* NameTotalpropofol 10 mg/mL 200 MG/76DF053.01 mglidocaine PF 1 %50 mg phenylephrine (RYAN-SYNEPHRINE) 1mg/10mL Barijwvsy545 mcg0.9% sodium chloride ydcrzxhd992 mL * Agents Name O2 N2O Air Inspired N2O N2O * Blood No blood administrations on file. TypeDetailsPlacementRemovalPeripheral IVPlacement date 03/23/25; Placement time 09; Size 22 g; Orientation Right, Anterior; Location Cephalic; Local anesthetic None; Removal date 04/02/25; Removal time [id number] by Ananya Martínez RN04/02/25 0511 by Discharge Provider, AutomaticPeripheral IV Placement date 03/23/25; Placement time 0937; Size 22 g; Orientation Right, Anterior; Location Forearm; Local anesthetic None; Removal date 03/27/25; Removal time 035; Removal reason Oibcmbg96/11/25 0937 by Ananya Martínez RN 03/27/25 0354 by Ernesto Crain RNdocumented in this encounter Social History Tobacco UseTypesPacks/DayYears UsedDateSmoking Tobacco: Every JetWqlkuhguqp093.4 Started: 11/1995Alcohol UseStandard Drinks/WeekCommentsYes3 (1 standard drink = 0.6 oz pure alcohol)Reports 3 vodka drinks dailyHousing Stability Vital Sign AnswerDate RecordedIn the last 12 months, was there a time when you were not able to pay the mortgage or rent on time?No03/22/2025In the past 12 months, how many times have you moved where you were living?t any time in the past 12 months, were you homeless or living in a longterm (including now)?No 03/22/2025Hunger Vital SignAnswerDate RecordedWithin the past 12 months, you worried that your food would run out before you got the money to buymore.Often true03/22/2025Within the past 12 months, the food you bought just didn't last and you didn't have money to get more.Often true03/22/2025PRAPARE - TransportationAnswerDate RecordedIn the past 12 months, has lack of transportation kept you from medical appointments or from getting medications?No 03/22/2025In the past 12 months, has lack of transportation kept you from meetings, work, or from getting things needed for daily living?No03/22/2025HC UtilitiesAnswerDate RecordedIn the past 12 months has the [employer], gas, oil, or water company threatened to shut off services in your home?No03/22/2025 Interpersonal Safety Domain Source: IP Abuse ScreeningAnswerDate Recorded Physical pfnbzHtomkx10/13/2025Verbal qsbplAcnhlu38/13/2025Emotional abuseDenies 03/25/2025Financial zhdlyCjfzel78/13/2025Sexual lsauwZoidkj06/13/2025 CommentsUnknownSex and Gender InformationValueDate RecordedSex Assigned at Not on fileLegal NtlSuoclj63/10/2025 3:15 PM EDTGender IdentityNot on fileSexual OrientationNot on filedocumented as of this encounter Plan of Treatment Not on file documented as of this encounter Visit Diagnoses Not on filedocumented in this encounter Administered Medications Medication OrderMAR ActionAction DateDoseRateSite 0.9 % sodium chloride infusion IntraVENous, ANES CONTINUOUS PRN, Starting on Tue03/25/25 at 0900, Intra-op New Bag03/25/2025 8:20 AM EDT lidocaine PF 1 % injection IntraVENous, ANES ONCE PRN, Starting on Tue03/25/25 at 0942, Until Tue03/25/25 at 1032, Intra-op Given03/25/2025 9:42 AM EDT50 mg phenylephrine (RYAN-SYNEPHRINE) 1 MG/10ML prefilled syringe (Push Dose) IntraVENous, ANES ONCE PRN, Starting on Tue03/25/25 at 1003, Until Tue03/25/25 at 1032, Intra-op Given03/25/2025 10:03 AM SVG325 mcg propofol 10 mg/mL infusion IntraVENous, ANES CONTINUOUS PRN, Starting on Tue03/25/25 at 0942, Until Tue03/25/25 at 1032, Intra-op Given03/25/2025 10:01 AM EDT40 mgRate/Dose Jniiyi5603/25/2025 9:53 AM GWI930 mcg/kg/min40.575 mL/hrRate/Dose Wnlskt2603/25/2025 9:52 AM EDT20 mcg/kg/min6.492 mL/hrdocumented in this encounter Care Teams Team MemberRelationshipSpecialtyStart DateEnd Date Sudhir Gonzalez MD [address] [place] [address] PCP - GeneralFamily Sxoyrbfg91/10/25documented as of this encounter
--- OUTSIDE RECORDS SUMMARY | 2025-03-26 15:30 | XMS_ITS | Encounter Summary ---
Author Organization [facility] [employer] [facility] Address [address], [address] [place] [address] Care Team Providers Care Off Premise Service Representative Name Role Phone Sudhir [place] MD Primary Care Provider [phone] Reason for Visit * Auth/CertSpecialtyDiagnoses / ProceduresReferred By ContactReferred To Contact Diagnoses Acute cholecystitis [facility] 5A Stepdown [address] [place] [address] Phone: tel: [facility] [employer] [facility] [address] [place] [address] Referral IDStatusReasonStart DateExpiration DateVisits RequestedVisits [id number] Encounter Details DateTypeDepartmentCare Team (Latest Contact Info)Enjkhemhqcn90/14/2025 3:30 PM EDT - 03/26/2025 5:30 PM EDTSurgery [facility] Endoscopy [address] [place] [address] [phone] Arnold Harper MD [address] [place] [address] [phone] ENDOSCOPIC RETROGRADE CHOLANGIOPANCREATOGRAPHY STENT INSERTION Surgery Details Date/TimeStatusLocationORServicePatient ClassCase ClassCase TypeTrauma Case? 03/26/2025 3:30 PMPostedSTVZ ENDOSCOPYENDO 01GastroenterologyInpatientElectiveNo Panel 1 ProcedureLRBAnesOp RegionWound ClassCommentsENDOSCOPIC RETROGRADE CHOLANGIOPANCREATOGRAPHY STENT INSERTIONN/AGeneralClass II Clean Contaminated ENDOSCOPIC ULTRASOUND, PATHOLOGYN/AGeneralClass II Clean Contaminated ESOPHAGOGASTRODUODENOSCOPY BIOPSYClass II Clean Contaminated ENDOSCOPIC RETROGRADE CHOLANGIOPANCREATOGRAPHY SPHINCTER/PAPILLOTOMYClass II Clean Contaminated SurgeonSurgeon RoleServiceVarunelLeroy, Arnold Diegosandra Mckenna, MDPrimaryGastroenterology1 Special Needs IVETH-GI. documented in this encounter Social History Tobacco UseTypesPacks/DayYears UsedDateSmoking Tobacco: Every DuqZyohmuphkh861.4 Started: 11/1995 Tobacco Cessation:Ready to Q uit: [...] were you homeless or living in a assisted (including now)?No03/22/2025 Hunger Vital SignAnswerDate RecordedWithin the [...] RecordedIn the past 12 months has the electric, gas, oil, or water company threatened to shut off services in your home?No03/22/2025Interpersonal Safety Domain Source: IP Abuse ScreeningAnswerDate RecordedPhysical xvudxAhvwnr57/13/2025Verbal abuseDenies 03/25/2025Emotional lvtppRmfrva38/13/2025Financial esjuiPjkxif37/13/2025Sexual wxnriWfotev93/13/2025CommentsUnknownSex and Gender InformationValueDate RecordedSex Assigned at BirthNot on fileLegal DqoBsiwym86/10/2025 3:15 PM EDT Gender IdentityNot on fileSexual OrientationNot on filedocumented as of this encounter Last Filed Vital Signs Vital SignReadingTime TakenCommentsBlood Xebexybr166/5903/26/2025 2:45 PM EDT Ubuzs062203/26/2025 2:45 PM SCOXbmqmaqzpnh72.3 ??C (97.4 ??F)03/26/2025 2:45 PM EDTRespiratory Odbg2282 2:45 PM EDTOxygen Trydjfhsvh645%03/26/2025 2:45 PM EDTInhaled Oxygen Concentration--Bbngge25.1 kg (119 lb 4.3 oz)03/22/2025 7:31 PM MEYHwbkgm223.2 cm (5' 7.01 )03/26/2025 11:37 AM EDTBody Mass Index18.68 03/22/2025 7:31 PM EDTdocumented in this encounter Discharge Summaries * Marvel Ng MD - 03/31/2025 9:09 AM EDT Images from the original note were not included. [facility] Office: [phone] Marquez Scott DO, Garth Casanova DO, Kenny [...] Bustillos MD, Berry Holder MD, Ruth Causey, [facility], Za Del Valle, [facility], Jarred Sandoval, [facility], Declan [facility], Gabby Epsteni, [facility], Carmen Pack, [facility], Amber Del Toro, [facility], Lula Alvarado, [facility], Julia Ortiz, PA-C, Linda Guidry, [facility], Lillie Gipson, [facility], Magaly Lind, [facility], Ni Rodriguez, [facility], Shaun Cabrales, PA-C, Danica Hernandez, PA-C, Shivani Díaz, [facility], Lily Esteves, [facility], Tracy Richardson, [facility], Carmela Wills, [facility], Sheila Smith, [facility], Kate Macias, [facility], Jeanie Fox, [facility] IN-PATIENT SERVICE [facility] Discharge Summary Patient ID: Eneida Mejia : 1975 ACCOUNT: [id number] Patient's PCP: Sudhir [place] MD Admit Date: [...] alcohol abuse presented as a transfer from [facility] for management of acute cholecystitis and concern [...] Home Physician Follow Up: Dimas Andujar MD [address] [address] Follow up in 2 week(s) Diet: regular [...] Medications These medications were [facility] - [place], [place] - [address] - P [phone] - F [phone] [address] [address] midodrine 5 MG tablet oxyCODONE-acetaminophen 5-325 MG [...] MG tablet Take 1 tablet by mouth rrjyxws3201/10/2025 oxyCODONE-acetaminophen (PERCOCET) 5-325 MG per tablet Indications:Common bile duct stricture (HCC)Take 1 tablet by mouth every 4 hours as needed for Pain for up to 5 days. Max Daily Amount: 6 tablets 15 tablet documented as of this encounter Progress Notes * Isaias Monae, DO - 03/31/2025 6:58 AM EDT Images from the original note were not included. PROGRESS NOTE PATIENT NAME: [facility] DATE: 03/31/2025 Hospital Day: # 9 DIAGNOSIS [...] acute events overnight. 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 Dermabond intact. LAB: CBC: Recent Labs 03/29/2562303/30/2562503/31/25 0529 WBC 8.6 10.3 7.8 HGB 9.1* 9.3* 9.6* HCT 29.6* 30.0* 30.5* MCV 121.3* 119.5* 118.2* PLT 253 275 276 BMP: Recent Labs 03/29/2562303/30/25 0603/31/25 0529 NA 133* 135* 136 K 4.2 3.2* 4.2 CL 102 100 105 CO2 25 25 BUN 2* 3* 3* CREATININE [...] confirmed. Dispo planning S. Abad Chino MD, [facility] Acute Care Surgery Attending [facility] * Marvel Ng MD - 03/30/2025 11:06 AM EDT Images from the original note were not included. [facility] Office: [phone] Marquez Scott DO, Garth Casanova DO, Kenny [...] DO,Yahaira Ma MD, Connor Neal DO, Kingsley aJmes MD, Francisco Licona MD, Tania Bustillos MD, Manuel Bustillos MD, Berry Holder MD, Ruth Causey, FITTING ROOM CHECKER, Za Del Valle, FITTING ROOM CHECKER, Jarred Sandoval, FITTING ROOM CHECKER, Declan, [facility], Gabby Epstein, FITTING ROOM CHECKER, Carmen Pack, FITTING ROOM CHECKER, Amber Del Toro, FITTING ROOM CHECKER, Lula Alvarado, FITTING ROOM CHECKER, Julia Ortiz, PA-C, Linda Guidry, FITTING ROOM CHECKER, Lillie Gipson, FITTING ROOM CHECKER, Magaly Lind, FITTING ROOM CHECKER, Ni Rodriguez, FITTING ROOM CHECKER, Shaun Cabrales, PA-C, Danica Hernandez, PA-C, Shivani Díaz, FITTING ROOM CHECKER, Lily Esteves, FITTING ROOM CHECKER, Tracy Richardson, FITTING ROOM CHECKER, Carmela Wills, LEAD SHOP OPERATOR, Sheila Smith, FITTING ROOM CHECKER, Kate Macias, FITTING ROOM CHECKER, Jeanie Fox, FITTING ROOM CHECKER [facility] IN-PATIENT SERVICE [facility] Progress Note 03/30/2025 11:06 AM Name: Eneida Mejia Acct: [id number] Room: [address] [place] [address] IP Day: 8 Admit Date: 03/22/2025 7:27 PM PCP: Sudhir [place] MD Code Status: Full Code Subjective: C/C: N/V/Abd pain/diarrhea Interval History Status: Not changed S/p ROBOTIC LAPAROSCOPIC CHOLECYSTECTOMY on 03/29 Still complaining of abdominal pain today 12/20, denies any other complaint Lab vital sign technology sales consultant note reviewed Discussed with RN at bedside Brief History: 49-year-old female with history of breast cancer status post left lumpectomy status post tamoxifen treatment, nicotine dependence and alcohol abuse presented as a transfer from [facility] for management of acute cholecystitis and concern [...] 11.3 11.8 Chemistry: Recent Labs 03/27/25 1455 10/17/62303/30/25625 NA 132* 133* 135* K 4.1 4.2 3.2* CL 105 102 100 CO2 21 24 25 GLUCOSE 120* 82 76 BUN 3* 2* 3* CREATININE 0.3* 0.4* 0.4* MG -- -- 1.3* ANIONGAP 6* 7* 10 LABGLOM >90 >90 >90 CALCIUM 7.6* 8.5* 8.2* Recent Labs 03/28/25 0426 03/29/2562303/30/25625 AST 66* 78* 84* ALT 35 30 30 ALKPHOS 192* 193* 186* BILITOT 4.1* 4.2* 3.3* BILIDIR 3.3* 3.0* 2.6* ABG:No results found for: POCPH , PHART , PH , POCPCO2 , VQP2YSF , PCO2 , POCPO2 , PO2ART , PO2 , POCHCO3 , VOE6IBN , HCO3 , NBEA , PBEA , BEART , BE , THGBART , THB , WCL6OKT , PBQN9JUZ , G0FXZVAD , O2SAT , FIO2 No results found [...] were reviewed and confirmed. Emmy Chino MD, [facility] Acute Care Surgery Attending [facility] * Mary Roth, RD - 03/29/2025 2:47 PM EDT Nutrition Assessment Type and Reason for Visit: Reassess Nutrition Recommendations/Plan: Modify ONS order to send chocolate flavor per patient preference Malnutrition Assessment: Malnutrition Status: At risk for malnutrition Nutrition Assessment: Pt was previously on Low Fat/Cardiac diet with improved intake, 51-100% of meals consumed. Pt was NPO for Caryn Farrar today, now back in room and started on Regular diet with Ensure ordered TID with meals, which ic appropriate. Pt reports she does like and drink the Ensure and prefers chocolate. Willmodify order to reflect Pt preference. Pt currently with hamburger and [place] of [place] fries on her lunch tray, and states she has been working on this for about an hour, though it appears very little has been consumed. This play writer did encourage low fat meals/snacks and [...] MD - 03/29/2025 12:44 PM EDT [facility] Progress Note Eneida Mejia is a 49 y.o. female patient. Hospitalization Day:7 Chief consult reason: Jaundice Subjective: Patient seen and examined at bedside. Jaundice improving. Abdominal pain in the epigastric area still persist. Surgery planning for lap daria today Objective: VITALS: BP 111/72 Pulse 66 [...] , TIBC , IRON , FERRITIN , OBMDEVSB54 , FOLATE , OCCULTBLD in the last 72 hours. BMP Recent Labs 03/27/25 1455 03/29/25 06 NA 132* 133* K 4.1 4.2 CL [...] flow across the ampulla. Therefore a 10 Lao by 7 cm plastic biliary stent was placed across the ampulla with good flow of bile and contrast seen post deployment. RECOMMENDATIONS: Surgery planning for lap daria Since LFTs remain elevated high bilirubin is [...] to ensure the accuracy of this automated cereal popper, some errors in cereal popper may have occurred. * Marvel Ng MD - 03/29/2025 11:07 AM EDT Images from the original note were not included. [facility] Office: [phone] Marquez Scott DO, Garth Casanova DO, Kenny [...] Bustillos MD, Berry Holder MD, Ruth Causey, FITTING ROOM CHECKER, Za Del Valle, FITTING ROOM CHECKER, Jarred Sandoval, FITTING ROOM CHECKER, Declan, [facility], Gabby Epstein, FITTING ROOM CHECKER, Carmen Pack, FITTING ROOM CHECKER, Amber Del Toro, FITTING ROOM CHECKER, Lula Alvarado, FITTING ROOM CHECKER, Julia Ortiz, PA-C, Linda Guidry, FITTING ROOM CHECKER, Lillie Gipson, FITTING ROOM CHECKER, Magaly Lind, FITTING ROOM CHECKER, Ni Rodriguez, FITTING ROOM CHECKER, Shaun Cabrales, PA-C, Danica Hernandez, PA-C, Shivani Díaz, FITTING ROOM CHECKER, Lily Esteves, FITTING ROOM CHECKER, Tracy Richardson, FITTING ROOM CHECKER, Carmela Wills, [facility], Sheila Smith, FITTING ROOM CHECKER, Kate Macias, FITTING ROOM CHECKER, Jeanie Fox, FITTING ROOM CHECKER [facility] IN-PATIENT SERVICE [facility] Progress Note 03/29/2025 11:08 AM Name: Eneida Mejia Acct: [id number] Room: [facility] IP Day: 7 Admit Date: 03/22/2025 7:27 PM PCP: Sudhir [place] MD Code Status: Full Code Subjective: C/C: N/V/Abd pain/diarrhea Interval History Status: Not changed S/p ROBOTIC LAPAROSCOPIC CHOLECYSTECTOMY on 03/29 She was seen after the procedure eating her food, no report pain 12/20 in severity denies any other complaint Lab vital sign technology sales consultant note reviewed Discussed with RN at bedside Brief History: 49-year-old female with history of breast cancer status post left lumpectomy status post tamoxifen treatment, nicotine dependence and alcohol abuse presented as a transfer from [facility] for management of acute cholecystitis and concern [...] , PHART , PH , POCPCO2 , UEE1UAC , PCO2 , POCPO2 , PO2ART , PO2 , POCHCO3 , IDP7JVI , HCO3 , NBEA , PBEA , BEART , BE , THGBART , THB , JTQ5FGE , ENFS3GWC , D5ZXFPIX , O2SAT , FIO2 No results found [...] Andujar MD - 03/28/2025 3:46 PM EDT [facility] Progress Note Eneida Mejia is a [...] Severe loss of signal intensity seen on rit-gc-gwkpg imaging consistent with severe hepatic steatosis. Mild [...] 293 ANEMIA STUDIES: Recent Labs 03/25/25 1559 HAFMJFQA26 >2000* FOLATE 25.5* BMP: Recent Labs 03/26/25 [...] flow across the ampulla. Therefore a 10 Lao by 7 cm plastic biliary stent was [...] contact me with any questions or concerns. [facility] Reba [place] PA-C [phone] 03/28/2025 3:46 PM Attending Physician Attestation: I [...] examination and review of system. * Fred Tracy DO Iris - 03/28/2025 1:18 PM EDT General Surgery [...] user, and alcohol drinker who presented from [facility] on 03/22/2025 for elevated bilirubin and CT demonstrating CBD dilation and gallbladder wall thickening concerning for acute cholecystitis. [facility], several weeks [...] identified stones. General surgery was consulted to further evaluate patient for possible surgical intervention. Past Medical [...] Severe loss of signal intensity seen on tjt-zs-wcyuh imaging consistent with severe hepatic steatosis. Mild [...] with cholelithiasis, raising the possibility of cholecystitis. rFed Tracy DO 03/28/2025, 1:18 PM Cosigned by Manjula Sue MD at 03/29/2025 10:10 AM EDT Associated attestation - Manjula Sue MD - 03/29/2025 10:10 AM EDT I personally evaluated the patient and directed the medical decision making with Resident after thephysical/radiologic exam and laboratory values were reviewed and confirmed. Acute daria with choledocholithiasis. Plan for robo daria 03/29. Manjula Sue MD * Berenice, Marvel Frank MD - 03/28/2025 10:52 AM EDT Images from the original note were not included. [facility] Office: [phone] Marquez Scott DO, Garth Casanova DO, Kenny Vicente DO, Edu Akers DO, Ubaldo Nava MD, Yasmeen Day MD, Darian Covarrubias MD, Pauly Keane MD, Terence Marte MD, Cordelia Medina MD, Sana Guaman MD, Tnaia Forman DO, Luigi Scott DO, Kaylie Briones MD, Ariel Glez DO, Emily Miller MD, Catina Melissa MD, Josias Corona MD, Jamil Louie MD, Carlyle Bledsoe MD,Estefany Badillo MD, Marvel Ng MD, Elvis Malave MD, Natalie Monroe MD, Jarred Dias DO,Yahaira Ma MD, Connor Neal DO, Kingsley James MD, Francisco Licona MD, Tania Bustillos MD, Manuel Bustillos MD, Berry Holder MD, Ruth Causey, FITTING ROOM CHECKER, Za Del Valle, FITTING ROOM CHECKER, Jarred Sandoval, FITTING ROOM CHECKER, TAI Manriquez, Gabby Epstein, FITTING ROOM CHECKER, Carmen Pack, FITTING ROOM CHECKER, Amber Del Toro, FITTING ROOM CHECKER, Lula Alvarado, FITTING ROOM CHECKER, Julia Ortiz PA-C, Linda Guidry, FITTING ROOM CHECKER, Lillie Gipson, FITTING ROOM CHECKER, Magaly Lind, FITTING ROOM CHECKER, Ni Rodriguez, FITTING ROOM CHECKER, Shaun Cabrales PA-C, Danica Hernandez PA-C, Shivani Díaz FITTING ROOM CHECKER, Lily Esteves, FITTING ROOM CHECKER, Tracy Richardson, FITTING ROOM CHECKER, Carmela Wills, LEAD SHOP OPERATOR, Sheila Smith, FITTING ROOM CHECKER, Kate Macias, FITTING ROOM CHECKER, Jeanie Fox, FITTING ROOM CHECKER [facility] IN-PATIENT SERVICE [facility] Progress Note 03/28/2025 10:52 AM Name: Eneida Mejia Acct: [id number] Room: [address] [place] [address] Day: 6 Admit Date: 03/22/2025 7:27 PM PCP: Sudhir [place] MD Code Status: Full Code Subjective: C/C: N/V/Abd pain/diarrhea Interval History Status: Not changed Patient was seen and examined, she was seen eating her breakfast, continues to report abdominal pain however she reports her pain is better compared with yesterday Lab vital sign technology sales consultant note reviewed Discussed with RN at bedside Brief History: 49-year-old female with history of breast cancer status post left lumpectomy status post tamoxifen treatment, nicotine dependence and alcohol abuse presented as a transfer from [facility] for management of acute cholecystitis and concern [...] , PHART , PH , POCPCO2 , DTS8LYP , PCO2 , POCPO2 , PO2ART , PO2 , POCHCO3 , TDV7CVR , HCO3 , NBEA , PBEA , BEART , BE , THGBART , THB , KSX5EPU , KRVK0VZK , S2XZPUCZ , O2SAT , FIO2 No results found [...] Andujar MD - 03/27/2025 1:39 PM EDT [facility] Progress Note Eneida Mejia is a [...] Severe loss of signal intensity seen on smx-wl-josyx imaging consistent with severe hepatic steatosis. Mild [...] the possibility of cholecystitis. CBC: Recent Labs 03/25/25 0651 03/26/25 0646 03/27/25 1126 WBC 11.8* 10.1 12.0* HGB 8.1* 8.4* 9.7* MCV 119.2* 120.0* 121.7* RDW 14.2 14.0 13.7 PLT 234 239 293 ANEMIA STUDIES: Recent Labs 03/25/25 0651 03/25/25 1559 TIBC 105* -- FERRITIN 328* -- RUYIUQIM31 -- >2000* FOLATE -- 25.5* BMP: Recent Labs 03/25/25 0651 03/25/25 2016 03/26/25 0000 03/26/25 0646 NA 135* 129* 127* 133* K 2.9* 3.6* 3.5* 3.6* CL 103 99 98 105 CO2 21 19* 23 21 BUN <2* <2* <2* <2* CREATININE 0.3* 0.3* 0.3* 0.3* GLUCOSE 71* 110* 113* 94 CALCIUM 6.7* 6.9* 7.0* 7.1* MG 1.5* -- -- -- LFTS: Recent Labs 03/25/25 0651 03/26/25 0000 03/26/25 0646 ALKPHOS 194* 219* 206* ALT 48* 52* [...] flow across the ampulla. Therefore a 10 Lao by 7 cm plastic biliary stent was [...] contact me with any questions or concerns. [facility] Reba [place] PA-C [phone] 03/27/2025 1:39 PM Attending Physician Attestation: I [...] EDT Physician Progress Note PATIENT: ENEIDA MEJIA [facility] #: [id number] : 1975 ADMIT DATE: 03/22/2025 7:27 PM [...] alcohol abuse presented as a transfer from [facility] for management of acute cholecystitis and concern [...] from the original note were not included. [facility] Office: [phone] Marquez Scott DO, Garth Casanova DO, Kenny Vicente DO, Edu Akers DO, Ubaldo Nava MD, Yasmeen Day MD, Darian Covarrubias MD, Pauly Keane MD, Terence Marte MD, Cordelia Medina MD, Sana Guaman MD, Tania Forman DO, Luigi Soctt DO, Kaylie Briones MD, Ariel Glez DO, Emily Miller MD, Catina Melissa MD, Josias Corona MD, Jamil Louie MD, Carlyle Bledsoe MD,Estefany Badillo MD, Marvel Ng MD, Elvis Malave MD, Natalie Monroe MD, Jarred Dias DO,Yahaira Ma MD, Connor Neal DO, Kingsley James MD, Francisco Licona MD, Tania Bustillos MD, Manuel Bustillos MD, Berry Holder MD, Ruth Causey, FITTING ROOM CHECKER, Za Del Valle, FITTING ROOM CHECKER, Jarred Sandoval, FITTING ROOM CHECKER, Declan, [facility], Gabby Epstein, FITTING ROOM CHECKER, Carmen Pack, FITTING ROOM CHECKER, Amber Del Toro, FITTING ROOM CHECKER, Lula Alvarado, FITTING ROOM CHECKER, Julia Ortiz, PA-C, Linda Guidry, FITTING ROOM CHECKER, Lillie Gipson, FITTING ROOM CHECKER, Magaly Lind, FITTING ROOM CHECKER, Ni Rodriguez, FITTING ROOM CHECKER, Shaun Cabrales, PA-C, Danica Hernandez, PA-C, Shivani Díaz, FITTING ROOM CHECKER, Lily Esteves, FITTING ROOM CHECKER, Tracy Richardson, FITTING ROOM CHECKER, Carmela Wills, [facility], Sheila Smith, FITTING ROOM CHECKER, Kate Macias, FITTING ROOM CHECKER, Jeanie Fox, FITTING ROOM CHECKER [facility] IN-PATIENT SERVICE [facility] Progress Note 03/27/2025 11:16 AM Name: Eneida Mejia Acct: [id number] Room: [address] [place] [address] Day: 5 Admit Date: 03/22/2025 7:27 PM PCP: Sudhir [place] MD Code Status: Full Code Subjective: C/C: N/V/Abd pain/diarrhea Interval History Status: Not changed Patient was seen and examined, she was seen eating her breakfast however she continued to report abdominal pain Status post ERCP done yesterday - Lab vital sign technology sales consultant note reviewed Discussed with RN at bedside Brief History: 49-year-old female with history of breast cancer status post left lumpectomy status post tamoxifen treatment, nicotine dependence and alcohol abuse presented as a transfer from [facility] for management of acute cholecystitis and concern [...] , PHART , PH , POCPCO2 , HVE0PBX , PCO2 , POCPO2 , PO2ART , PO2 , POCHCO3 , CIY8YSU , HCO3 , NBEA , PBEA , BEART , BE , THGBART , THB , RHY4TRJ , OSDA2YQQ , X3XZFQVZ , O2SAT , FIO2 No results found [...] Ng MD 03/27/2025 11:16 AM * Kary Sanchez, MARIAJOSE - 03/26/2025 4:00 PM EDT Tso unable to complete 4pm assessment and vitals due to patient being off unit for ERCP. * Berenice, Marvel Frank MD - 03/26/2025 12:05 PM EDT Images from the original note were not included. [facility] Office: [phone] Marquez Scott DO, Garth Casanova DO, Kenny [...] Holder MD, Ruth Causey, GABRIEL, Za Del Valle, FITTING ROOM CHECKER, Jarred Sandoval, FITTING ROOM CHECKER, TAI Manriquez, Gabby Epstein, FITTING ROOM CHECKER, Carmen Pack, FITTING ROOM CHECKER, Amber Del Toro FITTING ROOM CHECKER, Lula Alvarado FITTING ROOM CHECKER, Julia Ortiz PA-C, Linda Guidry, FITTING ROOM CHECKER, Lillie Gipson, FITTING ROOM CHECKER, Magaly Lind, FITTING ROOM CHECKER, Ni Rodriguez, FITTING ROOM CHECKER, Shaun Cabrales PA-C, Danica Hernandez PA-C, Shivani Díaz FITTING ROOM CHECKER, Lily Esteves, FITTING ROOM CHECKER, Tracy Richardson, FITTING ROOM CHECKER, Carmela Wills, LEAD SHOP OPERATOR, Sheila Smith, FITTING ROOM CHECKER, Kate Macias, FITTING ROOM CHECKER, Jeanie Fox, FITTING ROOM CHECKER [facility] IN-PATIENT SERVICE [facility] Progress Note 03/26/2025 12:06 PM Name: Eneida Mejia Acct: [id number] Room: [address] [place] [address] IP Day: 4 Admit Date: 03/22/2025 7:27 PM PCP: Sudhir [place] MD Code Status: Full Code Subjective: C/C: N/V/Abd pain/diarrhea Interval History Status: Not changed Patient was seen and examined, at time of my evaluation patient continues to report nausea, abdominal pain mainly in epigastric area Awaiting final GI input Lab vital sign technology sales consultant note reviewed Discussed with RN at bedside Brief History: 49-year-old female with history of breast cancer status post left lumpectomy status post tamoxifen treatment, nicotine dependence and alcohol abuse presented as a transfer from [facility] for management of acute cholecystitis and concern [...] ml Labs: Hematology: Recent Labs 03/24/25 0630 10/1365003/26/2546 WBC 13.5* 11.8* 10.1 RBC 2.35* 2.14* [...] displayed. 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 Pt is asing what she should be [...] Measures: Height: 170.2 cm (5' 7.01 ) [place] Body Weight (IBW): 135 lbs (61 kg) [...] from the original note were not included. [facility]: [phone] Marquez Scott DO, Garth Casanova DO, Kenny [...] Malave MD, Natalie Monroe MD, Jarred Dias DO,aYhaira Ma MD, Connor Neal DO, Kingsley James MD, Francisco Licona MD, Tania Bustillos MD, Manuel Bustillos MD, Berry Holder MD, Ruth Causey, FITTING ROOM CHECKER, Za Del Valle, FITTING ROOM CHECKER, Jarred Sandoval, FITTING ROOM CHECKER, Declan, DNP, Gabby Epstein, FITTING ROOM CHECKER, Carmen Pack, FITTING ROOM CHECKER, Amber Del Toro, FITTING ROOM CHECKER, Lula Alvarado, FITTING ROOM CHECKER, Julia Ortiz, PA-C, Linda Guidry, FITTING ROOM CHECKER, Lillie Gipson, FITTING ROOM CHECKER, Magaly Lind, FITTING ROOM CHECKER, Ni Rodriguez, FITTING ROOM CHECKER, Shaun Cabrales, PA-C, Danica Hernandez PA-C, Shivani Díaz, FITTING ROOM CHECKER, Lily Esteves, FITTING ROOM CHECKER, Tracy Richardson, FITTING ROOM CHECKER, Carmela Wills, LEAD SHOP OPERATOR, Sheila Smith, FITTING ROOM CHECKER, Kate Macias, FITTING ROOM CHECKER, Jeanie Fox, FITTING ROOM CHECKER [facility] IN-PATIENT SERVICE [facility] Progress Note 03/25/2025 12:58 PM Name: Eneida Mejia Acct: [id number] Room: [facility]/0503-[facility] Day: 3 Admit Date: 03/22/2025 7:27 PM [...] alcohol abuse presented as a transfer from [facility] for management of acute cholecystitis and concern [...] Chemistry: Recent Labs 03/23/25 0503/23/25 1424 03/24/258 03/24/25 0630 03/25/25 0651 NA 131* 131* 129* 134* [...] 2.8 -- -- -- -- Recent Labs 03/22/254 03/23/2551903/23/2520 03/24/258 03/24/25 0630 03/25/25 0651 TSH [...] , PHART , PH , POCPCO2 , PQZ5FPS , PCO2 , POCPO2 , PO2ART , PO2 , POCHCO3 , WOS0FQZ , HCO3 , NBEA , PBEA , BEART , BE , THGBART , THB , WFT4PZC , SDVD5CWH , E6NHCNAM , O2SAT , FIO2 No results found [...] AM EDT Critical Lab Result Potassium 2.9. Tso notified Dr. Galeana. Potassium Chloride 10mEq/100mL IVPB [...] Measures: Height: 170.2 cm (5' 7.01 ) [place] Body Weight (IBW): 135 lbs (61 kg) [...] soon to determine Luigi Laurent RD Contact: [phone] * Dimas Andujar MD - 03/24/2025 1:39 PM EDT [facility] Gastroenterology Progress Note Eneida Mejia is [...] Severe loss of signal intensity seen on det-nf-bwbzj imaging consistent with severe hepatic steatosis. Mild [...] the possibility of cholecystitis. CBC: Recent Labs 03/23/2551903/24/25629 WBC 13.8* 13.5* HGB 7.8* 8.9* MCV 116.4* 119.6* RDW 14.7* 14.6* PLT 275 293 ANEMIA STUDIES: No results for input(s): TIBC , FERRITIN , AOGMBWDQ23 , FOLATE , OCCULTBLD in the last [...] contact me with any questions or concerns. [facility] Reba Gonzalez PA-C [phone] 03/24/2025 1:42 PM Attending Physician Attestation: I [...] from the original note were not included. [facility] Office: [phone] Marquez Scott DO, Garth Casanova DO, Kenny [...] CNP, Carmen Pack CNP, Amber Del Toro, FITTING ROOM CHECKER, Lula Alvarado, FITTING ROOM CHECKER, KASH HowellC, Linda Guidry, FITTING ROOM CHECKER, Lillie Gipson, FITTING ROOM CHECKER, Magaly Lind, FITTING ROOM CHECKER, Ni Rodriguez, FITTING ROOM CHECKER, KASH SueroC, Danica Hernandez PA-C, Shivani Díaz, FITTING ROOM CHECKER, Lily Esteves, FITTING ROOM CHECKER, Tracy Richardson, FITTING ROOM CHECKER, Carmela Wills, LEAD SHOP OPERATOR, Sheila Smith, GABRIEL, Kate Macias, GABRIEL, Jeanie Fox, FITTING ROOM CHECKER [facility] IN-PATIENT SERVICE [facility] Progress Note 03/24/2025 7:56 AM Name: Eneida Mejia Acct: [id number] Room: [address] [place] [address] Day: 2 Admit Date: 03/22/2025 7:27 PM [...] alcohol abuse presented as a transfer from [facility] for management of acute cholecystitis and concern [...] , PHART , PH , POCPCO2 , VIU5FME , PCO2 , POCPO2 , PO2ART , PO2 , POCHCO3 , VSQ1PYM , HCO3 , NBEA , PBEA , BEART , BE , THGBART , THB , XLB5TDZ , JRCD9OKZ , R9HYTRXV , O2SAT , FIO2 No results found [...] hypokalemia, hypomagnesemia, hyponatremia-replace electrolytes as needed Chronic jjgnszm-xrpglo-vi stool studies. Alcohol use disorder-thiamine folate multivitamin. [...] from the original note were not included. [facility] Office: [phone] Marquez Scott DO, Garth Casanova DO, Kenny [...] Bustillos MD, Berry Holder MD, Ruth Causey, FITTING ROOM CHECKER, Za Del Valle CNP, Jarred Sandoval, FITTING ROOM CHECKER, Declan, TAI, Gabby Epstein, FITTING ROOM CHECKER, Carmen Pack, FITTING ROOM CHECKER, Amber Del Toro, FITTING ROOM CHECKER, Lula Alvarado, FITTING ROOM CHECKER, Julia Ortiz PAMirellaC, Linda Guidry, FITTING ROOM CHECKER, Lillie Gipson, FITTING ROOM CHECKER, Magaly Lind, FITTING ROOM CHECKER, Ni Rodriguez, FITTING ROOM CHECKER, Shaun Cabrales, PAMirellaC, Danica Hernandez, PAMirellaC, Shivani Díaz, FITTING ROOM CHECKER, Lily Esteves, FITTING ROOM CHECKER, Tracy Richardson, FITTING ROOM CHECKER, Carmela Wills, [facility], Sheila Smith, FITTING ROOM CHECKER, Kate GABRIEL Macias Cynthia Stives, CNP [facility] IN-PATIENT SERVICE [facility] Progress Note 03/23/2025 8:12 AM Name: Eneida Mejia Acct: [id number] Room: 0503/0503-01 Day: 1 Admit Date: 03/22/2025 7:27 PM [...] alcohol abuse presented as a transfer from [facility] for management of acute cholecystitis and concern [...] , PHART , PH , POCPCO2 , RXM1RQE , PCO2 , POCPO2 , PO2ART , PO2 , POCHCO3 , WJI7GJT , HCO3 , NBEA , PBEA , BEART , BE , THGBART , THB , LBP5OKW , PTAT2SGF , E5NOWWGB , O2SAT , FIO2 No results found [...] hypokalemia, hypomagnesemia, hyponatremia-replace electrolytes as needed Chronic tfflvvc-mrdhxr-sz stool studies. Alcohol use disorder-thiamine folate multivitamin. [...] PANEL W/ REFLEX TO MG FOR LOW PAfjuqcv05/19/2025 5:29 AM EDT CBC WITH AUTO YWOGIPKWQFXWLxvcewa37/19/2025 5:29 AM EDT HEPATIC FUNCTION XXJDBPkzqels27/19/2025 5:29 AM EDT ORRJKWKEDDIRFjohiny66/18/2025 6:26 AM EDT BASIC METABOLIC PANEL W/ REFLEX TO MG FOR LOW JLkaqjln57/18/2025 6:26 AM EDT TXVMmpkivy93/18/2025 6:26 AM EDT VAXNTVHZZNmzibhv54/18/2025 6:26 AM EDT HEPATIC FUNCTION WJSMFLhojbqh15/18/2025 6:26 AM EDT BASIC METABOLIC PANEL W/ REFLEX TO MG FOR LOW WSawlgmp42/17/2025 6:24 AM EDT OQUMurizha16/17/2025 6:24 AM EDT HEPATIC FUNCTION EJRGFCvxihzp41/17/2025 6:24 AM EDT SURGICAL PATHOLOGY PAKKISSbtxpha62/17/2025 12:00 AM EDT HEPATIC FUNCTION TMJUSDiarpkh24/16/2025 4:26 AM EDT XR ABDOMEN (KUB) (SINGLE AP VIEW)Kwkekdv6003/27/2025 3:36 PM EDT PREVIOUS SESFDYVDJCDU08/15/2025 2:55 PM EDTCOMPREHENSIVE METABOLIC PANEL W/ REFLEX TO MG FOR LOW KSTAT1 2:55 PM EDT ECHO (TTE) CUHRXQSNBvugujg33/15/2025 11:55 AM EDT Hypotension, unspecified hypotension type CDCMhhymxy60/15/2025 11:26 AM EDT US GI ENDOSCOPIC S&OFfbatfy60/14/2025 11:44 PM EDT FLUORO FOR SURGICAL APQGNHEJKXVtsvkjg53/14/2025 6:17 PM EDT CYTOLOGY, NON-XUEGykylsh64/14/2025 4:28 PM EDT Common bile duct stricture (HCC) ENDOSCOPIC RETROGRADE CHOLANGIOPANCREATOGRAPHY SPHINCTER/OCDQTRCODSP42/14/2025 3:55 PM EDT Common bile duct stricture (HCC) Special Needs IVETH-GI. ESOPHAGOGASTRODUODENOSCOPY QQKUQY9803/26/2025 3:55 PM EDT Common bile duct stricture (HCC) Special Needs IVETH-GI. ESOPHAGOGASTRODUODENOSCOPY ENDOSCOPIC ULTRASOUND FINE NEEDLE ASPIRATION 03/26/2025 3:55 PM EDT Common bile duct stricture (HCC) Special Needs IVETH-GI. ENDOSCOPIC RETROGRADE CHOLANGIOPANCREATOGRAPHY STENT HGUKRHBDZ92/14/2025 3:55 PM EDT Common bile duct stricture (HCC) Special Needs IVETH-GI. SURGICAL PATHOLOGY DYHIVTPwvpvjf46/14/2025 9:22 AM EDT COMPREHENSIVE METABOLIC PANEL W/ REFLEX TO MG FOR LOW NBvwlvtp93/14/2025 6:46 AM EDT CBC WITH AUTO YDQICASNGKUUOfsrzkf97/14/2025 6:46 AM EDT SURGICAL PATHOLOGY UYOIEJFcuswtd28/14/2025 12:00 AM EDT COMPREHENSIVE METABOLIC RZUYJRtomx65/14/2025 12:00 AM EDT BASIC METABOLIC PANEL W/ REFLEX TO MG FOR LOW UWzafkid49/13/2025 8:16 PM EDT PREVIOUS NFNFENLPVefspha69/13/2025 3:59 PM EDTVITAMIN B12 & FOLATERoutine 03/25/2025 3:59 PM EDT US ORGAN MTVOBBIJPQFKMazptsa08/13/2025 12:16 PM EDT COMPREHENSIVE METABOLIC PANEL W/ REFLEX TO MG FOR LOW JZodeyjp33/13/2025 6:51 AM EDT CBC WITH AUTO JXXSHUPEFRKAAgojvbc27/13/2025 6:51 AM EDT IRON AND MORSTfulpvb20/13/2025 6:51 AM EDT ZDXCGCNNAVyirwmo39/13/2025 6:51 AM EDT FRXYUCOQZgtqlvs33/13/2025 6:51 AM EDT SURGICAL PATHOLOGY DOSXZHFqzsjcw75/13/2025 12:00 AM EDT MRI ABDOMEN W WO CONTRAST NVHEZugcttx06/12/2025 9:32 AM EDT COMPREHENSIVE METABOLIC PANEL W/ REFLEX TO MG FOR LOW MDdikcmb40/12/2025 6:30 AM EDT CBC WITH AUTO QVFDKFDJYYCAUpyluuj78/12/2025 6:30 AM EDT PROTIME-FTMPpzqhyq36/12/2025 6:30 AM EDT COMPREHENSIVE METABOLIC BGDDXXehli34/12/2025 12:48 AM EDT GASTROINTESTINAL PANEL, MOLECULARSunquest Label Print03/23/2025 6:24 PM EDT C DIFF TOXIN/ANTIGENSunquest Label Print03/23/2025 6:24 PM EDT BASIC METABOLIC PANEL W/ REFLEX TO MG FOR LOW KSTAT1 2:24 PM EDT EBOIOUOWXHcvuszm62/11/2025 2:24 PM EDT LIPID, PQIQWTURuqdxzj36/11/2025 5:20 AM EDT TSH REFLEX TO VJ2Gmvdelu96/11/2025 5:20 AM EDT COMPREHENSIVE METABOLIC PANEL W/ REFLEX TO MG FOR LOW KAsvvetf55/11/2025 5:20 AM EDT CBC WITH AUTO GSLWELUNXYXUAnuibzd75/11/2025 5:20 AM EDT PROTIME-JAKXcckjov90/11/2025 5:20 AM EDT TTFGNEBHHSKoecmdz48/11/2025 5:20 AM EDT QHXVOGEMCDrgfqob69/11/2025 5:20 AM EDT BQVOMDTjrmwvh35/10/2025 9:34 PM EDT documented in this encounter Results * (ABNORMAL) Basic Metabolic Panel w/ Reflex to MG (03/31/2025 5:29 AM EDT) ComponentValueRef RangeTest MethodAnalysis TimePerformed AtPathologist IigdhvefaXgjytt504350 - 145 mmol/L1 5:29 AM EDTMERCY [facility] Potassium4.23.7 - 5.3 mmol/L1 5:29 AM EDTMERCY LABORATORIESComment: Specimen hemolysis has exceeded the interference as defined by Francesco. Value may be falsely increased. Suggest recollection if clinically indicated. Oxlxxius73129 - 107 mmol/L1 5:29 AM EDTMERCY YOVIGZNZPPZSFO12548 - 31 mmol/L1 5:29 AM EDTMERCY LABORATORIESAnion Gap6(L)9 - 16 mmol/L 03/31/2025 5:29 AM EDTMERCY AZPTYJHWWKWQYydlxhz6690 - 99 mg/dL03/31/2025 5:29 AM EDTMERCY LABORATORIESBUN3(L)6 - 20 mg/dL03/31/2025 5:29 AM EDTM[facility] Creatinine0.4(L)0.6 - 0.9 mg/dL03/31/2025 5:29 AM EDTMERCY LABORATORIESEst, Glom Filt Rate>90>60 mL/min/1.06z48403/31/2025 5:29 AM EDTMERCY LABORATORIESComment: ? These results [...] Method / VolumeCollection TimeReceived TimeBloodBLOOD SPECIMEN / Xttduvh1303/31/2025 5:29 AM EDT1 5:57 AM EDT Narrative Authorizing ProviderResult TypeResult StatusAndisaura Tracy DOCHEMISTRY ORDERABLESFinal ResultPerforming OrganizationAddressCity/State/ZIP CodePhone Number [facility] LIMAPlato Networks [facility] [address] [place] [address], [facility] [phone] * (ABNORMAL) CBC with Auto Differential (03/31/2025 5:29 AM EDT)ComponentValue Ref RangeTest MethodAnalysis TimePerformed AtPathologist SignatureWBC7.83.5 - 11.3 k/uL03/31/2025 5:29 AM EDTMERCY LABORATORIESRBC2.58(L)3.95 - 5.11 m/uL 03/31/2025 5:29 AM EDTMERCY LABORATORIESHemoglobin9.6(L)11.9 - 15.1 g/dL 03/31/2025 5:29 AM EDTMERCY TXIYIPCCNAZGDxoeoqvkkw02.5(L)36.3 - 47.1 % 03/31/2025 5:29 AM EDTMERCY VJFMFMOCUFJPBSL399.2(H)82.6 - 102.9 fL03/31/2025 5:29 AM EDTMERCY KUBIFMABDWCJPFE18.2(H)25.2 - 33.5 pg03/31/2025 5:29 AM EDT [facility] HBRFRZXQRQPODITB53.528.4 - 34.8 g/dL03/31/2025 5:29 AM EDTMERCY NKJCJTERKDWLCOM25.211.8 - 14.4 %03/31/2025 5:29 AM EDTMERCY LABORATORIES Otxvwhekz745335 - 453 k/uL03/31/2025 5:29 AM EDTMERCY WGDEGZPBYVLXEUH71.48.1 - 13.5 fL03/31/2025 5:29 AM EDTMERCY LABORATORIESNRBC [...] - 0.20 k/uL03/31/2025 5:29 AM EDTMERCY LABORATORIESMorphologyMACROCYTOSIS VYPJTSZ7403/31/2025 5:29 AM EDTMERCY LABORATORIESSpecimen (Source)Anatomical Location / LateralityCollection Method / VolumeCollection TimeReceived TimeBloodBLOOD SPECIMEN / Ajfunbl5103/31/2025 5:29 AM EDT1 5:57 AM EDT Narrative Authorizing ProviderResult TypeResult StatusAndrew C Ehrsam DOHEMATOLOGY ORDERABLESFinal ResultPerforming OrganizationAddressCity/State/ZIP CodePhone Number [facility] [address] [place] [address], [facility] [phone] * (ABNORMAL) Hepatic Function Panel (03/31/2025 5:29 AM EDT)ComponentValueRef RangeTest MethodAnalysis TimePerformed AtPathologist SignatureAlbumin2.6(L)3.5 - 5.2 g/dL03/31/2025 5:29 AM EDTMERCY LABORATORIESAlkaline Sprwlgihwau309(H)35 - 104 U/L1 5:29 AM EDTMERCY JVPESURLZUEAQBK1996 - 35 U/L1 5:29 AM EDTMERCY VHROHZOPZXSPGGA27(H)10 - 35 U/L10 5:29 AM EDTMERCY LABORATORIESComment: Specimen hemolysis has [...] / VolumeCollection TimeReceived TimeBlood BLOOD SPECIMEN / Lsnwgko8403/31/2025 5:29 AM EDT1 5:57 AM EDT Narrative Authorizing ProviderResult TypeResult StatusIsaias Monae DOCHEMISTRY ORDERABLESFinal ResultPerforming OrganizationAddressCity/State/ZIP CodePhone Number [place] [address] [place] [address], [facility] [phone] * (ABNORMAL) Magnesium (03/30/2025 6:26 AM EDT)ComponentValueRef RangeTest MethodAnalysis TimePerformed AtPathologist SignatureMagnesium1.3(L)1.6 - 2.6 mg/dL03/30/2025 6:26 AM EDTMERCY LABORATORIESSpecimen (Source)Anatomical Location / LateralityCollection Method / VolumeCollection TimeReceived Time 03/30/2025 6:26 AM EDT1 8:30 AM EDT Narrative Authorizing ProviderResult TypeResult StatusIsaias Monae DOCHEMISTRY ORDERABLESFinal ResultPerforming OrganizationAddressCity/State/ZIP CodePhone Number [facility] [address] [place] [address], [facility] [phone] * (ABNORMAL) Differential (03/30/2025 6:26 AM EDT)ComponentValueRef RangeTest MethodAnalysis TimePerformed AtPathologist SignatureRBC MorphologyMACROCYTOSIS NBZJRUS1603/30/2025 6:26 AM EDTMERCY LABORATORIESImmature Granulocytes %1(H)0 % [...] Absolute7.531.50 - 8.10 k/uL03/30/2025 6:26 AM EDT [facility] ContextY LABORATORIESLymphocytes Absolute1.441.10 - 3.70 k/uL03/30/2025 6:26 AM EDTMERCY LABORATORIESMonocytes Absolute1.030.10 - 1.20 k/uL03/30/2025 6:26 AM EDTMERCY LABORATORIESEosinophils Absolute0.100.00 - 0.44 k/uL03/30/2025 6:26 AM EDTMERCY LABORATORIESBasophils Absolute0.100.00 - 0.20 k/uL03/30/2025 6:26 AM EDTMERCY LABORATORIESMorphologyMACROCYTOSIS UYNHOPU4903/30/2025 6:26 AM EDT [facility] LABORATORIESSpecimen (Source)Anatomical Location / LateralityCollection Method / VolumeCollection TimeReceived Time03/30/2025 6:26 AM EDT1 8:30 AM EDT Narrative Authorizing ProviderResult TypeResult StatusAusmeenu Monae DOCHEMISTRY ORDERABLESFinal ResultPerforming OrganizationAddressCity/State/ZIP CodePhone Number [facility] [address] [phone] * (ABNORMAL) CBC (03/30/2025 6:26 AM EDT)ComponentValueRef RangeTest Method Analysis TimePerformed AtPathologist RpggveypgILK30.33.5 - 11.3 k/uL03/30/2025 6:26 AM EDTMERCY LABORATORIESRBC2.51(L)3.95 - 5.11 m/uL03/30/2025 6:26 AM EDT [facility] LABORATORIESHemoglobin9.3(L)11.9 - 15.1 g/dL03/30/2025 6:26 AM EDTMERCY MYBNOPSFMKOQGqlkxagyvc52.0(L)36.3 - 47.1 %03/30/2025 6:26 AM EDTMERCY TTIKDBXSDNIAXEG784.5(H)82.6 - 102.9 fL03/30/2025 6:26 AM EDTMERCY LABORATORIES MCH37.1(H)25.2 - 33.5 pg03/30/2025 6:26 AM EDTMERCY FREKTOICMAHEXISF16.028.4 - 34.8 g/dL03/30/2025 6:26 AM EDTMERCY MTDYIVGGBRMFBOZ36.211.8 - 14.4 % 03/30/2025 6:26 AM EDTMERCY NTDVGTPLMVSXVxompjiuv147453 - 453 k/uL03/30/2025 6:26 AM EDTMERCY EUHFTYSEHIGVALZ31.88.1 - 13.5 fL03/30/2025 6:26 AM EDTMERCY LABORATORIESNRBC Automated0.00.0 per 100 WBC03/30/2025 6:26 AM EDTMERCY LABORATORIESSpecimen (Source)Anatomical Location / LateralityCollection Method / VolumeCollection TimeReceived Time03/30/2025 6:26 AM EDT1 8:30 AM EDT Narrative Authorizing ProviderResult TypeResult StatusAustin Jones Monae DOHEMATOLOGY ORDERABLESFinal ResultPerforming OrganizationAddressCity/State/ZIP CodePhone Number [facility] [address] [place] [address], [facility] [phone] * (ABNORMAL) Basic Metabolic Panel w/ Reflex to MG (03/30/2025 6:26 AM EDT) ComponentValueRef RangeTest MethodAnalysis TimePerformed AtPathologist ZcfipfaylTndqww193(L)136 - 145 mmol/L1 6:26 AM EDTMERCY LABORATORIES Potassium3.2(L)3.7 - 5.3 mmol/L1 6:26 AM EDTMERCY LABORATORIES Xmtgdlxf54661 - 107 mmol/L1 6:26 AM EDTMERCY MKPHXYWJGMFIBY89751 - 31 mmol/L1 6:26 AM EDTMERCY LABORATORIESAnion Dqw923 - 16 mmol/L 03/30/2025 6:26 AM EDTMERCY ZCKBLQAHXHNADalould7160 - 99 mg/dL03/30/2025 6:26 AM EDTMERCY LABORATORIESBUN3(L)6 - 20 mg/dL03/30/2025 6:26 AM EDTMERCY LABORATORIESCreatinine0.4(L)0.6 - 0.9 mg/dL03/30/2025 6:26 AM EDTMERCY LABORATORIESEst, Glom Filt Rate>90>60 mL/min/1.95t69603/30/2025 6:26 AM EDTMERCY LABORATORIESComment: ? These results [...] Monae DOCHEMISTRY ORDERABLESFinal ResultPerforming OrganizationAddressCity/State/ZIP CodePhone Number [facility] [address] [place] [address], [facility] [phone] * (ABNORMAL) Hepatic Function Panel (03/30/2025 6:26 AM EDT)ComponentValueRef RangeTest MethodAnalysis TimePerformed AtPathologist SignatureAlbumin2.6(L)3.5 - 5.2 g/dL03/30/2025 6:26 AM EDTMERCY LABORATORIESAlkaline Dyjaqyxebqn046(H)35 - 104 U/L1 6:26 AM EDTMERCY TWIMEWSFKAOHSNQ4253 - 35 U/L1 6:26 AM EDTMERCY GNAGZPTXVGYCXFC89(H)10 - 35 U/L1 6:26 AM EDTMERCY LABORATORIESTotal [...] / Volume Collection TimeReceived TimeBloodBLOOD SPECIMEN / Snzqfvs9603/30/2025 6:26 AM EDT1 8:30 AM EDT Narrative Authorizing ProviderResult TypeResult StatusAustin D Monae DOCHEMISTRY ORDERABLESFinal ResultPerforming OrganizationAddressCity/State/ZIP CodePhone Number [address] [place] [address], [facility] [phone] * (ABNORMAL) Hepatic Function Panel (03/29/2025 6:24 AM EDT)ComponentValueRef RangeTest MethodAnalysis TimePerformed AtPathologist SignatureAlbumin2.6(L)3.5 - 5.2 g/dL03/29/2025 6:24 AM EDTMERCY LABORATORIESAlkaline Difwrueuuts266(H)35 - 104 U/L1 6:24 AM EDTMERCY OERUDORAULMLEUA4968 - 35 U/L1 6:24 AM EDTMERCY CPIESFZLPVBJXRV95(H)10 - 35 U/L1 6:24 AM EDTMERCY LABORATORIESComment: [...] / VolumeCollection TimeReceived TimeBlood BLOOD SPECIMEN / Ctdxutj4603/29/2025 6:24 AM EDT1 6:42 AM EDT Narrative Authorizing ProviderResult TypeResult StatusAustin D Monae DOCHEMISTRY ORDERABLESFinal ResultPerforming OrganizationAddressCity/State/ZIP CodePhone Number [facility] [address] [place] [address], [facility] [phone] * (ABNORMAL) CBC (03/29/2025 6:24 AM EDT)ComponentValueRef RangeTest Method Analysis TimePerformed AtPathologist SignatureWBC8.63.5 - 11.3 k/uL03/29/2025 6:24 AM EDTMERCY LABORATORIESRBC2.44(L)3.95 - 5.11 m/uL03/29/2025 6:24 AM EDT [facility] LABORATORIESHemoglobin9.1(L)11.9 - 15.1 g/dL03/29/2025 6:24 AM EDTMERCY YYYJAKPRXBMRExxnpfzbad96.6(L)36.3 - 47.1 %03/29/2025 6:24 AM EDTMERCY XGWDXTZNQTEBYPU248.3(H)82.6 - 102.9 fL03/29/2025 6:24 AM EDTM[facility]CY LAB[facility]ATOR[facility] MCH37.3(H)25.2 - 33.5 pg03/29/2025 6:24 AM EDTMERCY FWBJRFEDBQNXDABI35.728.4 - 34.8 g/dL03/29/2025 6:24 AM EDTMERCY PITPTKAQOMSDMPC10.311.8 - 14.4 % 03/29/2025 6:24 AM EDTMERCY VQDRRXKENLYALcbhwnpwr555838 - 453 k/uL03/29/2025 6:24 AM EDTMERCY NANLRRYXXRHHNYI29.38.1 - 13.5 fL03/29/2025 6:24 AM EDTMERCY LABORATORIESNRBC Automated0.00.0 per 100 WBC03/29/2025 6:24 AM EDTMERCY LABORATORIESSpecimen (Source)Anatomical Location / LateralityCollection Method / VolumeCollection TimeReceived TimeBLOOD SPECIMEN / Yvcphfm0903/29/2025 6:24 AM EDT1 6:42 AM EDT Narrative Authorizing ProviderResult TypeResult StatusBayan Zac Ng MDHEMATOLOGY ORDERABLESFinal ResultPerforming OrganizationAddressCity/State/ZIP CodePhone Number [facility] [address] [place] [address], [facility] [phone] * (ABNORMAL) Basic Metabolic Panel w/ Reflex to MG (03/29/2025 6:24 AM EDT) ComponentValueRef RangeTest MethodAnalysis TimePerformed AtPathologist VughikxxeVnampu054(L)136 - 145 mmol/L1 6:24 AM EDTMERCY LABORATORIES Potassium4.23.7 - 5.3 mmol/L1 6:24 AM EDTMERCY LABORATORIESComment: Specimen hemolysis has exceeded the interference as defined by Francesco. Value may be falsely increased. Suggest recollection if clinically indicated. Uhiesrot93811 - 107 mmol/L1 6:24 AM EDTMERCY WXWQCFXCISCRPP45365 - 31 mmol/L1 6:24 AM EDTMERCY LABORATORIESAnion Gap7(L)9 - 16 mmol/L 03/29/2025 6:24 AM EDTMERCY LKWKLDCNGJYTMwsvanw4922 - 99 mg/dL03/29/2025 6:24 AM EDTMERCY LABORATORIESBUN2(L)6 - 20 mg/dL03/29/2025 6:24 AM EDTM[facility] Creatinine0.4(L)0.6 - 0.9 mg/dL03/29/2025 6:24 AM EDTMERCY LABORATORIESComment: Specimen icterus has exceeded the interference as defined by Francesco. Result may be affected.Est, Glom Filt Rate>90>60 mL/min/1.52x77703/29/2025 6:24 AM EDTMERCY LABORATORIESComment: ? These results [...] Method / VolumeCollection TimeReceived TimeBloodBLOOD SPECIMEN / Sfnvrwx8303/29/2025 6:24 AM EDT1 6:42 AM EDT Narrative Authorizing ProviderResult TypeResult StatusBakyle Ng MDCHEMISTRY ORDERABLESFinal ResultPerforming OrganizationAddressCity/State/ZIP [place] [address], [facility] [phone] * SURGICAL PATHOLOGY REPORT (03/29/2025 12:00 AM EDT)ComponentValueRef RangeTest MethodAnalysis TimePerformed AtPathologist SignatureSurgical Pathology Report Path Number: [id number] -- Diagnosis -- Gallbladder: -Cholelithiasis and mild [...] Microscopic Description Microscopic examination performed. Processing Lab: ??[address] [address] Interpretation Performed at [address] [address] SURGICAL PATHOLOGY CONSULTATION Patient Name: ENEIDA MEJIA [facility] Rec: [id number] [facility] ??[facility]ATOR[facility] ANATOMIC PATHOLOGY [address] [place] [address]. ??[place], [place] [address] bon [facility] [facility] CTQuan LABSSpecimen (Source)Anatomical Location / LateralityCollection Method / VolumeCollection TimeReceived Time 2:07 PM EDT Narrative Authorizing ProviderResult TypeResult StatusAmer Jennifer Sue MD PATHOLOGY/CYTOLOGY ORDERABLESFinal ResultPerforming OrganizationAddress City/State/ZIP CodePhone Number [facility] [address] [place] [address] [facility] LAB[facility] * (ABNORMAL) Hepatic Function Panel (03/28/2025 4:26 AM EDT)ComponentValueRef RangeTest MethodAnalysis TimePerformed AtPathologist SignatureAlbumin2.6(L)3.5 - 5.2 g/dL03/28/2025 4:26 AM EDTMERCY LABORATORIESAlkaline Xtpcijcltro850(H)35 - 104 U/L1 4:26 AM EDTMERCY SVGDMHDXGPSDGLI9773 - 35 U/L1 4:26 AM EDTMERCY VAULBZNLPUQLLAC55(H)10 - 35 U/L1 4:26 AM EDTMERCY LABORATORIESTotal [...] / Volume Collection TimeReceived TimeBloodBLOOD SPECIMEN / Xqmudmo8303/28/2025 4:26 AM EDT1 4:32 AM EDT Narrative Authorizing ProviderResult TypeResult StatusIsaias Monae DOCHEMISTRY ORDERABLESFinal ResultPerforming OrganizationAddressCity/State/ZIP CodePhone Number [facility] [address] [place] [address], [facility] [phone] * XR ABDOMEN (KUB) (SINGLE AP VIEW) [...] calculus evident. Authorizing ProviderResult TypeResult StatusReba Gonzalez PA-CIMG DIAGNOSTIC IMAGING ORDERABLESFinal Result * PREVIOUS SPECIMEN (03/27/2025 2:55 PM EDT)Specimen (Source)Anatomical Location / LateralityCollection Method / VolumeCollection TimeReceived Time03/27/2025 2:55 PM EDT1 3:10 PM EDT Narrative Authorizing ProviderResult TypeResult StatusBakyle Zac KennyDennys MDCHEMISTRY ORDERABLESFinal ResultPerforming OrganizationAddressCity/State/ZIP CodePhone Number [facility] [address] [place] [address], [facility] [phone] * (ABNORMAL) Comprehensive Metabolic Panel w/ Reflex to MG (03/27/2025 2:55 PM EDT)ComponentValueRef RangeTest MethodAnalysis TimePerformed AtPathologist ZqxfannnoAcvohc438(L)136 - 145 mmol/L1 2:55 PM EDTMERCY LABORATORIES Potassium4.13.7 - 5.3 mmol/L1 2:55 PM EDTMERCY LABORATORIESChloride [address] - 107 mmol/L1 2:55 PM EDTMERCY GOUMKWSKOZDAWJ46797 - 31 mmol/L 03/27/2025 2:55 PM EDTMERCY LABORATORIESAnion Gap6(L)9 - 16 mmol/L1 2:55 PM EDTMERCY ZXGUPFEGNYBVCaqvkev824(H)74 - 99 mg/dL03/27/2025 2:55 PM EDT [facility] LABORATORIESBUN3(L)6 - 20 mg/dL03/27/2025 2:55 PM EDTMERCY LABORATORIES Creatinine0.3(L)0.6 - 0.9 mg/dL03/27/2025 2:55 PM EDTMERCY LABORATORIES Comment:Specimen icterus has exceeded the interference as defined by Francesco. Result may be affected.Est, Glom Filt Rate>90>60 mL/min/1.17k18603/27/2025 2:55 PM EDTMERCY LABORATORIESComment: ? These results [...] - 1.2 mg/dL03/27/2025 2:55 PM EDTMERCY LABORATORIESAlkaline Pdfthovjifh155(H)35 - 104 U/L1 2:55 PM EDTMERCY NUYJGPYGENVGDYN8705 - 35 U/L10 2:55 PM EDTMERCY WIVLOSGZXAGFFIF79(H)10 - 35 U/L1 2:55 PM EDTMERCY LABORATORIES Specimen (Source)Anatomical Location / LateralityCollection Method / Volume Collection TimeReceived Time03/27/2025 2:55 PM EDT1 3:10 PM EDT Narrative Authorizing ProviderResult TypeResult StatusBayan Zac Ng MDCHEMISTRY ORDERABLESFinal ResultPerforming OrganizationAddressCity/State/ZIP CodePhone Number [place] [address] [place] [address], [facility] [phone] * (ABNORMAL) ECHO (TTE) COMPLETE (03/27/2025 11:55 AM EDT)ComponentValueRef RangeTest MethodAnalysis TimePerformed AtPathologist SignatureLV EDV N4B30kJ [facility] CV CPACSLV EDV R0H62oYVLVJ CV CPACSLV ESV H9C40iEHBYN CV CPACSLV ESV A4C 20mLBSMH CV CPACSIVSd0.80.6 - 0.9 cmBSMH CV CPACSLVIDd4.43.9 - 5.3 cmBSMH CV CPACSLVIDs3.1cmBSMH CV CPACSLVOT Diameter2.0cmBSMH CV CPACSLVOT Mean Gradient2 mmHgBSMH CV CPACSLVOT VTI15.3cmBSMH CV CPACSLVOT Peak Velocity0.9m/sBSMH CV CPACSLVOT Peak Tzjmeyhs9tpFuIRPO CV CPACSLVPWd0.80.6 - 0.9 cmBSMH CV CPACSLV E' Lateral Velocity9.46cm/sBSMH CV CPACSLV E' Septal Velocity6.31cm/sBSMH CV CPACSGlobal longitudinal strain-15.3%[facility] CV CPACSLV Ejection Fraction A2C40% [facility] CV CPACSLV Ejection Fraction A4C61%[facility] CV CPACSEF DW7269 - 100 %[facility] CV CPACSLVOT Area3.2ba3LMZY CV CPACSLVOT SV48.0mlBSMH CV CPACSLA Minor Axis3.3cm [facility] CV CPACSLA Major Axis5.3cmBSMH CV CPACSLA Area 2C9.6wv4RAWK CV CPACSLA Area 4C12.1ay2VKFF CV CPACSLA Volume MOD K7N8962 - 52 mLBSMH CV CPACSLA Volume MOD D9X1199 - 52 mLBSMH CV CPACSLA Diameter3.7cmBSMH CV CPACSRA Area 4C12.8cm2 [facility] CV CPACSRA Iqibqc15taFPHS CV CPACSAV Mean Velocity0.8m/sBSMH CV CPACSAV Mean Tzqgecga5rkNhZCXG CV CPACSAV VTI23.0cmBSMH CV CPACSAV Peak Velocity1.2m/s [facility] CV CPACSAV Peak Oaukchml4kdRkWPDB CV CPACSAV Area by VTI2.9yh9EDRY CV CPACSAV Area by Peak Velocity2.6bj1MBXF CV CPACSAortic Root3.6cmBSMH CV CPACS Ascending Aorta3.0cmBSMH CV CPACSIVC Proxmal1.8cmBSMH CV CPACSMV E Wave Deceleration Ickv522.0msBSMH CV CPACSMV A Velocity0.75m/sBSMH CV CPACSMV E Velocity0.57m/sBSMH CV CPACSMV Mean Vwepdfhi0njOsEJNZ CV CPACSMV VTI19.3cmBSMH CV CPACSMV Mean Velocity0.5m/sBSMH CV CPACSMV Max Velocity0.7m/sBSMH CV CPACS MV Peak Ocakmerx1coMiBXPA CV CPACSMV Area by VTI2.0vr9DHKX CV CPACSRV Basal Dimension3.1cmBSMH CV CPACSRV Mid Dimension3.1cmBSMH CV CPACSRV Free Wall Peak S'10.3cm/sBSMH CV CPACSTAPSE2.0>=1.7 cmBSMH CV CPACSBody Surface Area1.0q9VVFF CV CPACSFractional Shortening 2V3442 - 44 %BS[facility] CV CPACSLV ESV Index A4C12 mL/m2BSMH CV CPACSLV EDV Index Y7L42lN/m2BSMH CV CPACSLV ESV Index K1X83gS/m2 [facility] CV CPACSLV EDV Index I0F63cO/m2BSMH CV CPACSLVIDd Index2.72cm/m2BSMH CV CPACSLVIDs Index1.91cm/m2BSMH CV [...] CPACSLA/AO Root Ratio1.03BSMH CV CPACSRA Volume Index H0Y38vL/m2BSMH CV CPACSAo Root Index2.22cm/m2BSMH CV CPACSAscending Aorta Index1.85cm/m2BSMH CV CPACSAV Velocity Ratio0.75BSMH CV CPACSLVOT:AV VTI Index0.67BSMH CV CPACSAVA/BSA VTI 1.3cm2/m2BS[facility] CV CPACSAVA/BSA Peak Velocity1.4cm2/m2BS[facility] CV CPACSMV:LVOT VTI Index1.26BSMH CV CPACSEst. RA Jdzqgvav9noKlZJKC CV CPACSEF Ggufjneab93%BS[facility] CV CPACSAnatomical RegionLateralityModalityEchocardiographySpecimen (Source) Anatomical Location / [...] given. Authorizing ProviderResult TypeResult StatusSyed Diego Harper [facility] ECHO ORDERABLESFinal Result * (ABNORMAL) CBC (03/27/2025 11:26 AM EDT)ComponentValueRef RangeTest Method Analysis TimePerformed AtPathologist UsdbetzmuDKN58.0(H)3.5 - 11.3 k/uL 03/27/2025 11:26 AM EDTMERCY LABORATORIESRBC2.54(L)3.95 - 5.11 m/uL03/27/2025 11:26 AM EDTMERCY LABORATORIESHemoglobin9.7(L)11.9 - 15.1 g/dL03/27/2025 11:26 AM EDTMERCY ISKFFRCGHOZSDtfjghiusn66.9(L)36.3 - 47.1 %03/27/2025 11:26 AM EDT [facility] MPZDKWEJBXLLMOX782.7(H)82.6 - 102.9 fL03/27/2025 11:26 AM EDTMERCY VIDXGLSSTKOTSGN90.2(H)25.2 - 33.5 pg03/27/2025 11:26 AM EDTMERCY LABORATORIES MCHC31.428.4 - 34.8 g/dL03/27/2025 11:26 AM EDTMERCY BIVKVZTCNFXEUDT85.711.8 - 14.4 %03/27/2025 11:26 AM EDTMERCY LLMOROIXIUZPXakjaittr498029 - 453 k/uL 03/27/2025 11:26 AM EDTMERCY QDHOHIGZKCTCLKF04.18.1 - 13.5 fL03/27/2025 11:26 AM EDTMERCY LABORATORIESNRBC Automated0.00.0 per 100 WBC03/27/2025 11:26 AM EDTMERCY LABORATORIESSpecimen (Source)Anatomical Location / Laterality Collection Method / VolumeCollection TimeReceived TimeBLOOD SPECIMEN / Unknown 03/27/2025 11:26 AM EDT1 12:04 PM EDT Narrative Authorizing ProviderResult TypeResult StatusMarvel Ng MDHEMATOLOGY ORDERABLESFinal ResultPerforming OrganizationAddressCity/State/ZIP CodePhone Number [facility] [address] [place] [address], [facility] [phone] * US GI ENDOSCOPIC S&I (03/26/2025 11:44 PM EDT)Specimen (Source)Anatomical Location / LateralityCollection Method / VolumeCollection TimeReceived Time Narrative [facility] - 03/26/2025 11:44 PM EDT Radiology exam is complete. No Radiologist dictation. Please follow up with ordering provider. Authorizing ProviderResult TypeResult StatusSyed Diego Harper MDIMG US ORDERABLESFinal ResultPerforming OrganizationAddressCity/State/ZIP CodePhone Number [facility] * FLUORO FOR SURGICAL PROCEDURES (03/26/2025 6:17 PM EDT)Specimen (Source) Anatomical Location / LateralityCollection Method / VolumeCollection Time Received Time Narrative [facility] - 03/26/2025 6:17 PM EDT Radiology exam is complete. No Radiologist dictation. Please follow up with ordering provider. 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 ??STOMACH, BIOPSY: - [...] will be forwarded in consultation to the [facility] for an expert second opinion. ??Their [...] 0.3 x 0.2 cm. ??Entirely 1cs. jj tm Gia Sykes M.D./ko:03/27/2025 Microscopic Description A, B. Microscopic examination performed. ?? Processing Lab: ??[address] [address] Interpretation Performed at [address] [address] SURGICAL PATHOLOGY CONSULTATION Patient Name: ENEIDA MEJIA Rec: [id number] [facility] ??LABORATORIES [facility] ANATOMIC PATHOLOGY [facility]. ??[place], [place] [address] b[facility] LABSSpecimen (Source)Anatomical Location / LateralityCollection Method / VolumeCollection TimeReceived Time 03/26/2025 9:22 AM EDT1 Narrative Authorizing ProviderResult TypeResult StatusSyed Diego Harper MD PATHOLOGY/CYTOLOGY ORDERABLESFinal ResultPerforming OrganizationAddress City/State/ZIP CodePhone Number [facility] [address] [place] [address], [facility] [phone] [facility] * (ABNORMAL) Comprehensive Metabolic Panel w/ Reflex to MG (03/26/2025 6:46 AM EDT)ComponentValueRef RangeTest MethodAnalysis TimePerformed AtPathologist UwvssyhzpSktufo039(L)136 - 145 mmol/L1 6:46 AM EDTMERCY LABORATORIES Potassium3.6(L)3.7 - 5.3 mmol/L1 6:46 AM EDTMERCY LABORATORIES Alulcvre71368 - 107 mmol/L1 6:46 AM EDTMERCY GLTVIDDYJBONXV12578 - 31 mmol/L1 6:46 AM EDTMERCY LABORATORIESAnion Gap7(L)9 - 16 mmol/L 03/26/2025 6:46 AM EDTMERCY MGDQKJQHVSTRKmdbhor0593 - 99 mg/dL03/26/2025 6:46 AM EDTMERCY LABORATORIESBUN<2(L)6 [...] - 1.2 mg/dL03/26/2025 6:46 AM EDTMERCY LABORATORIESAlkaline Iznqfezfoju901(H)35 - 104 U/L1 6:46 AM EDTMERCY PTOXUJQBPKHYXSE72(H)10 - 35 U/L1 6:46 AM EDTMERCY OHWUOTQTZRZPHYL85(H)10 - 35 U/L1 6:46 AM EDTMERCY LABORATORIESSpecimen (Source)Anatomical Location / LateralityCollection Method / VolumeCollection TimeReceived TimeBloodBLOOD SPECIMEN / Xizxccy0203/26/2025 6:46 AM EDT1 7:20 AM EDT Narrative Authorizing ProviderResult TypeResult StatusHossWay[facility] MDCHEMISTRY ORDERABLESFinal ResultPerforming OrganizationAddressCity/State/[facility] CodePhone Number [place] [address] [phone] * (ABNORMAL) CBC with Auto Differential (03/26/2025 6:46 AM EDT)ComponentValue Ref RangeTest MethodAnalysis TimePerformed AtPathologist GftlqgbrnQMO60.13.5 - 11.3 k/uL03/26/2025 6:46 AM EDTMERCY LABORATORIESRBC2.20(L)3.95 - 5.11 m/uL 03/26/2025 6:46 AM EDTMERCY LABORATORIESHemoglobin8.4(L)11.9 - 15.1 g/dL 03/26/2025 6:46 AM EDTMERCY KUJFRBFDAPQGLxvjvokfny96.4(L)36.3 - 47.1 % 03/26/2025 6:46 AM EDTMERCY GEFWFIPIEYMLGJT439.0(H)82.6 - 102.9 fL03/26/2025 6:46 AM EDTMERCY YPJJINJJLVEVXQI57.2(H)25.2 - 33.5 pg03/26/2025 6:46 AM EDT [facility] NOZGMVVSLSFMXVNT71.828.4 - 34.8 g/dL03/26/2025 6:46 AM EDTMERCY YZQYVNCJIMPATSX00.011.8 - 14.4 %03/26/2025 6:46 AM EDTMERCY LABORATORIES Wjmeqvtyi864270 - 453 k/uL03/26/2025 6:46 AM EDTMERCY GCHZWTUORYDKAQP22.88.1 - 13.5 fL03/26/2025 6:46 AM EDTMERCY LABORATORIESNRBC Automated0.00.0 per 100 WBC03/26/2025 6:46 AM EDTMERCY LABORATORIESRBC MorphologyMACROCYTOSIS PRESENT 03/26/2025 6:46 AM EDTMERCY LABORATORIESImmature Granulocytes %1(H)0 % 03/26/2025 6:46 AM EDTMERCY LABORATORIESNeutrophils %83(H)36 - 65 %03/26/2025 6:46 AM EDTMERCY LABORATORIESLymphocytes %7(L)24 - 43 %03/26/2025 6:46 AM EDT [facility] LABORATORIESMonocytes %73 - 12 %03/26/2025 6:46 AM [...] - 0.20 k/uL03/26/2025 6:46 AM EDTMERCY LABORATORIESMorphologyMACROCYTOSIS FLKBZJW8003/26/2025 6:46 AM EDTMERCY LABORATORIESSpecimen (Source)Anatomical Location / LateralityCollection Method / VolumeCollection TimeReceived TimeBloodBLOOD SPECIMEN / Quqrpno8103/26/2025 6:46 AM EDT1 7:20 AM EDT Narrative Authorizing ProviderResult TypeResult StatusHosshany Andujar MDHEMATOLOGY ORDERABLESFinal ResultPerforming OrganizationAddressCity/State/ZIP CodePhone Number [address] [phone] * SURGICAL PATHOLOGY REPORT (03/26/2025 12:00 AM EDT)ComponentValueRef RangeTest MethodAnalysis TimePerformed AtPathologist SignatureSurgical Pathology Report Path Number: [id number] INTERPRETATION LYMPH NODE, VERNON HEPATIS, FINE NEEDLE [...] MICROSCOPIC DESCRIPTION Microscopic examination performed. ? Non Lubricating Machine Tender Thin Prep x 1, Cell Block w/ H&E x 1 Processing Lab: [address] [address] Interpretation performed at [address] [address] NONGYNECOLOGICAL CYTOPATHOLOGY CONSULTATION Patient Name: ENEIDA MEJIA [facility] Rec: [id number] [facility] ??LABORATORIES [facility] ANATOMIC PATHOLOGY [address] [facility]. ??[place], [place] [address] b ClubJumpr.comACOMA-CANON[facility] [employer] LABSSpecimen (Source)Anatomical Location / LateralityCollection Method / VolumeCollection TimeReceived Time 9:56 AM EDT Narrative Authorizing ProviderResult TypeResult StatusSyed Diego Harper MD PATHOLOGY/CYTOLOGY ORDERABLESFinal ResultPerforming OrganizationAddress City/State/ZIP CodePhone Number [employer] [phone] [facility] [employer] CT[facility] LABS * (ABNORMAL) Comprehensive Metabolic Panel (03/26/2025 12:00 AM EDT)Component ValueRef RangeTest MethodAnalysis TimePerformed AtPathologist SignatureSodium 127(L)136 - 145 mmol/L1 12:00 AM EDTMERCY LABORATORIESPotassium3.5(L) 3.7 - 5.3 mmol/L1 12:00 AM EDTMERCY UGTHRQEMSNYPQndjnahe3830 - 107 mmol/L1 12:00 AM EDTMERCY OEEGCQOOPLXUNY21596 - 31 mmol/L1 12:00 AM EDTMERCY LABORATORIESAnion Gap6(L)9 - 16 mmol/L1 12:00 AM EDTMERCY BHSMFYGYOQXLYcjivxr394(H)74 - 99 mg/dL03/26/2025 12:00 AM EDTMERCY LABORATORIESBUN<2(L)6 - 20 mg/dL03/26/2025 12:00 AM EDTMERCY LABORATORIES Creatinine0.3(L)0.6 - 0.9 mg/dL03/26/2025 12:00 AM EDTMERCY LABORATORIES Comment:Specimen icterus has exceeded the interference as defined by Francesco. Result may be affected.Est, Glom Filt Rate>90>60 mL/min/1.41n35903/26/2025 12:00 AM EDTMERCY LABORATORIESComment: ? These results [...] - 1.2 mg/dL03/26/2025 12:00 AM EDTMERCY LABORATORIESAlkaline Mwxaqucygvl737(H) 35 - 104 U/L1 12:00 AM EDTMERCY UYFLATKXCQALDFQ37(H)10 - 35 U/L 03/26/2025 12:00 AM EDTMERCY ZOFTLTQNHNIXGFZ00(H)10 - 35 U/L1 12:00 AM EDTMERCY LABORATORIESSpecimen (Source)Anatomical Location / LateralityCollection Method / VolumeCollection TimeReceived TimeBloodBLOOD SPECIMEN / Unknown 12:05 AM EDT Narrative Authorizing ProviderResult TypeResult StatusDilnoor Chloe MDCHEMISTRY ORDERABLES Final ResultPerforming OrganizationAddressCity/State/ZIP CodePhone Number [place] [address] [place] [address], [facility] [phone] * (ABNORMAL) Basic Metabolic Panel w/ Reflex to MG (03/25/2025 8:16 PM EDT) ComponentValueRef RangeTest MethodAnalysis TimePerformed AtPathologist KivczorhtRkehhc391(L)136 - 145 mmol/L1 8:16 PM EDTMERCY LABORATORIES Potassium3.6(L)3.7 - 5.3 mmol/L1 8:16 PM EDTMERCY LABORATORIES Edpdexik1194 - 107 mmol/L1 8:16 PM EDTMERCY WAWMDXVAOQQQWB225(L)20 - 31 mmol/L1 8:16 PM EDTMERCY LABORATORIESAnion Gna241 - 16 mmol/L 03/25/2025 8:16 PM EDTMERCY HVVGEJTOAYNBNvmysgx599(H)74 - 99 mg/dL03/25/2025 8:16 PM EDTMERCY LABORATORIESBUN<2(L)6 [...] MDCHEMISTRY ORDERABLES Final ResultPerforming OrganizationAddressCity/State/ZIP CodePhone Number [place] [address] [place] [address], [facility] [phone] * PREVIOUS SPECIMEN (03/25/2025 3:59 PM EDT)Specimen (Source)Anatomical Location / LateralityCollection Method / VolumeCollection TimeReceived Time03/25/2025 3:59 PM EDT1 4:09 PM EDT Narrative Authorizing ProviderResult TypeResult StatusDilnoor Chloe MDCHEMISTRY ORDERABLES Final ResultPerforming OrganizationAddressCity/State/ZIP CodePhone Number [place] [address], [facility] [phone] * (ABNORMAL) Vitamin B12 & Folate (03/25/2025 3:59 PM EDT)ComponentValueRef RangeTest MethodAnalysis TimePerformed AtPathologist SignatureVitamin B-12 >2000(H)232 - 1245 pg/mL03/25/2025 3:59 PM EDTMERCY WXVXZUOXJOEBRzfzit74.5(H) 4.8 - 24.2 ng/mL03/25/2025 3:59 PM EDTMERCY LABORATORIESSpecimen (Source) Anatomical Location / LateralityCollection Method / VolumeCollection Time Received Time03/25/2025 3:59 PM EDT1 4:09 PM EDT Narrative Authorizing ProviderResult TypeResult StatusDilnoor Chloe MDCHEMISTRY ORDERABLES Final ResultPerforming OrganizationAddressCity/State/ZIP CodePhone Number [facility] [address] [place] [address], [facility] [phone] * US ORGAN ELASTOGRAPHY (03/25/2025 12:16 PM [...] Liver stiffness measurements were obtained on a [employer] LOGIQ E9 unit with a C1-6-D transducer. [...] Liver stiffness measurements were obtained on a 7 [employer] E9unit with a C1-6-D transducer. 12 valid [...] AM EDT)ComponentValueRef RangeTest Method Analysis TimePerformed AtPathologist LprdwjqrrKqrfwxqd573(H)15 - 150 ng/mL 03/25/2025 6:51 AM EDTMERCY [...] TypeResult StatusDilnoor Chloe MDCHEMISTRY ORDERABLES Final ResultPerforming OrganizationAddressty/[facility] CodePhone Number [employer] [phone] * (ABNORMAL) Iron and TIBC (03/25/2025 6:51 AM EDT)ComponentValueRef RangeTest MethodAnalysis TimePerformed AtPathologist TovqeoyowJxwd8019 - 145 ug/dL 03/25/2025 6:51 AM EDTMERCY NOBGLLHNGIDXZWLH974(L)250 - 450 ug/dL03/25/2025 6:51 AM EDTMERCY LABORATORIESIron % Ycvpqlhjxs5476 - 55 %03/25/2025 6:51 AM EDTMERCY PDBKZIUBTIOQFPFB08(L)112 - 347 ug/dL03/25/2025 6:51 AM EDTMERCY LABORATORIESSpecimen (Source)Anatomical Location / LateralityCollection Method / VolumeCollection TimeReceived Time03/25/2025 6:51 AM EDT1 8:25 AM EDT Narrative Authorizing ProviderResult TypeResult StatusDilnoor Chloe MDCHEMISTRY ORDERABLES Final ResultPerforming OrganizationAddressCincinnati [facility] CodePhone Number [facility] [address] [place] [address], [facility] [phone] * (ABNORMAL) Magnesium (03/25/2025 6:51 AM EDT)ComponentValueRef RangeTest MethodAnalysis TimePerformed AtPathologist SignatureMagnesium1.5(L)1.6 - 2.6 mg/dL03/25/2025 6:51 AM EDTMERCY LABORATORIESSpecimen (Source)Anatomical Location / LateralityCollection Method / VolumeCollection TimeReceived Time 03/25/2025 6:51 AM EDT1 8:25 AM EDT Narrative Authorizing ProviderResult TypeResult StatusDilnoor Chloe MDCHEMISTRY ORDERABLES Final ResultPerforming OrganizationAddressCity/State/ZIP CodePhone Number [facility] [address] [place] [address], [facility] [phone] * (ABNORMAL) Comprehensive Metabolic Panel w/ Reflex to MG (03/25/2025 6:51 AM EDT)ComponentValueRef RangeTest MethodAnalysis TimePerformed AtPathologist PgtnaldqwIywbvz471(L)136 - 145 mmol/L1 6:51 AM EDTMERCY LABORATORIES Potassium2.9(LL)3.7 - 5.3 mmol/L1 6:51 AM EDTMERCY LABORATORIES Pmrhszyf18084 - 107 mmol/L1 6:51 AM EDTMERCY QOOJXAXBISXRHD91885 - 31 mmol/L1 6:51 AM EDTMERCY LABORATORIESAnion Uec011 - 16 mmol/L 03/25/2025 6:51 AM EDTMERCY OJAKQBDWGXTZLtwtbfb68(L)74 - 99 mg/dL03/25/2025 6:51 AM EDTMERCY LABORATORIESBUN<2(L)6 [...] - 1.2 mg/dL03/25/2025 6:51 AM EDTMERCY LABORATORIESAlkaline Zoodoemwjvu257(H)35 - 104 U/L1 6:51 AM EDTMERCY ZULOCLYEUQFZEYI66(H)10 - 35 U/L1 6:51 AM EDTMERCY KJOBNMAPJOTWZPS62(H)10 - 35 U/L1 6:51 AM EDTMERCY LABORATORIESSpecimen (Source)Anatomical Location / LateralityCollection Method / VolumeCollection TimeReceived TimeBloodBLOOD SPECIMEN / Cmisvah7103/25/2025 6:51 AM EDT1 8:25 AM EDT Narrative Authorizing ProviderResult TypeResult StatusH[facility]Way[facility] MDCHEMISTRY ORDERABLESFinal ResultPerforming OrganizationAddressCity/State/ZIP CodePhone Number [facility] [address] [place] [address], [facility] [phone] * (ABNORMAL) CBC with Auto Differential (03/25/2025 6:51 AM EDT)ComponentValue Ref RangeTest MethodAnalysis TimePerformed AtPathologist JcwwaridnVBC40.8(H) 3.5 - 11.3 k/uL03/25/2025 6:51 AM EDTMERCY LABORATORIESRBC2.14(L)3.95 - 5.11 m/uL03/25/2025 6:51 AM EDTMERCY LABORATORIESHemoglobin8.1(L)11.9 - 15.1 g/dL 03/25/2025 6:51 AM EDTMERCY FFMMPTRFYRHCWvotuufctm49.5(L)36.3 - 47.1 % 03/25/2025 6:51 AM EDTMERCY CUQTFJIWPSTZEEF758.2(H)82.6 - 102.9 fL03/25/2025 6:51 AM EDTMERCY HUTKDGTPWAABIIX34.9(H)25.2 - 33.5 pg03/25/2025 6:51 AM EDT [facility] MBYGZFLAJXMQWBLA13.828.4 - 34.8 g/dL03/25/2025 6:51 AM EDTMERCY NGIDDKLTTFEPUXV18.211.8 - 14.4 %03/25/2025 6:51 AM EDTMERCY LABORATORIES Ebagvzzbi398642 - 453 k/uL03/25/2025 6:51 AM EDTMERCY VSQVBBMRLBAWQHJ32.38.1 - 13.5 fL03/25/2025 6:51 AM EDTMERCY LABORATORIESNRBC [...] - 0.20 k/uL03/25/2025 6:51 AM EDTMERCY LABORATORIESMorphologyMACROCYTOSIS ARXUPQS2603/25/2025 6:51 AM EDTMERCY LABORATORIESSpecimen (Source)Anatomical Location / LateralityCollection Method / VolumeCollection TimeReceived TimeBloodBLOOD SPECIMEN / Qeuspbw0103/25/2025 6:51 AM EDT1 8:25 AM EDT Narrative Authorizing ProviderResult TypeResult StatusHosshany Andujar MDHEMATOLOGY ORDERABLESFinal ResultPerforming OrganizationAddressCity/State/[facility] CodePhone Number [facility] [address] [phone] * SURGICAL PATHOLOGY REPORT (03/25/2025 12:00 AM EDT)ComponentValueRef RangeTest MethodAnalysis TimePerformed AtPathologist SignatureSurgical Pathology Report Path Number: [id number] -- Diagnosis -- A. ??Stomach, biopsy: - [...] Raffi Brewster M.D. Electronically Signed Out ? lanette03/26/2025 Clinical Information Pre-Op Diagnosis: ??ANEMIA, UNSPECIFIED TYPE [...] x 0.2 cm in aggregate. ??Entirely 1cs. ??jsaurav Lo/se:03/25/2025 Microscopic Description A-C. Microscopic examination performed. Processing Lab: ??[address] [address] Interpretation Performed at [address] [address] SURGICAL PATHOLOGY CONSULTATION Patient Name: ENEIDA MEJIA [facility] Rec: [id number] [facility] ??LABORATORIES [facility] ANATOMIC PATHOLOGY [address] [place] [address]. ??[place] [phone] b[facility] LABSSpecimen (Source)Anatomical Location / LateralityCollection Method / VolumeCollection TimeReceived Time 10:59 AM EDT Narrative Authorizing ProviderResult TypeResult StatusHossein Pratima MDPATHOLOGY/CYTOLOGY ORDERABLESFinal ResultPerforming OrganizationAddressCity/State/ZIP CodePhone Number [facility] [address] [place] [address] [facility]Quan LABS * MRI ABDOMEN W WO CONTRAST [...] Severe loss of signal intensity seen on dcn-ym-grkkz imaging consistent with severe hepatic steatosis. Mild [...] Severe loss of signal intensity seen on rux-gu-xsvuh imaging consistentwith severe hepatic steatosis. Mild hepatomegaly [...] of cholecystitis. Authorizing ProviderResult TypeResult StatusAimee Miester ORTHOPEDICS PEDIATRIC PHYSICIAN - NPIMG MRI ORDERABLESFinal Result * (ABNORMAL) Comprehensive Metabolic Panel w/ Reflex to MG (03/24/2025 6:30 AM EDT)ComponentValueRef RangeTest MethodAnalysis TimePerformed AtPathologist EjheeoknhIgdvgn496(L)136 - 145 mmol/L1 6:30 AM EDTMERCY LABORATORIES Potassium3.73.7 - 5.3 mmol/L1 6:30 AM EDTMERCY LABORATORIESChloride [address] - 107 mmol/L1 6:30 AM EDTMERCY PBQUTREZSPOIOX28737 - 31 mmol/L 03/24/2025 6:30 AM EDTMERCY LABORATORIESAnion Oeo930 - 16 mmol/L1 6:30 AM EDTMERCY OHUXKXDRUZMEFesnyng3499 - 99 mg/dL03/24/2025 6:30 AM EDTMERCY LABORATORIESBUN2(L)6 - 20 mg/dL03/24/2025 6:30 AM EDTM[facility]CY [facility] Creatinine0.4(L)0.6 - 0.9 mg/dL03/24/2025 6:30 AM [facility] Comment:Specimen icterus has exceeded the interference as defined by Francesco. Result may be affected.Est, Glom Filt Rate>90>60 mL/min/1.86u67503/24/2025 6:30 AM EDTMERCY LABORATORIESComment: ? These results [...] - 1.2 mg/dL03/24/2025 6:30 AM EDTMERCY LABORATORIESAlkaline Ximpyawwvhe762(H)35 - 104 U/L1 6:30 AM EDTMERCY WYCWLGMBHSWJJOL86(H)10 - 35 U/L1 6:30 AM EDTMERCY KWBACHUCYXJRKQL090(H)10 - 35 U/L1 6:30 AM EDTMERCY LABORATORIESSpecimen (Source)Anatomical Location / LateralityCollection Method / VolumeCollection TimeReceived TimeBloodBLOOD SPECIMEN / Aslxedx8003/24/2025 6:30 AM EDT1 7:03 AM EDT Narrative Authorizing ProviderResult TypeResult StatusHossein Chelsea Marine Hospitalrashmi MDCHEMISTRY ORDERABLESFinal ResultPerforming OrganizationAddressCity/State/ZIP CodePhone Number [facility] LIMAPlato Networks [facility] [address] [phone] * (ABNORMAL) CBC with Auto Differential (03/24/2025 6:30 AM EDT)ComponentValue Ref RangeTest MethodAnalysis TimePerformed AtPathologist MxlbrosdtAGA43.5(H) 3.5 - 11.3 k/uL03/24/2025 6:30 AM EDTMERCY LABORATORIESRBC2.35(L)3.95 - 5.11 m/uL03/24/2025 6:30 AM EDTMERCY LABORATORIESHemoglobin8.9(L)11.9 - 15.1 g/dL 03/24/2025 6:30 AM EDTMERCY MCBBCNOWXRWHJmxjgaqwbj56.1(L)36.3 - 47.1 % 03/24/2025 6:30 AM EDTMERCY CVSYBKMGVWTACJY990.6(H)82.6 - 102.9 fL03/24/2025 6:30 AM EDTMERCY MJEYKNUTAIVUXLD76.9(H)25.2 - 33.5 pg03/24/2025 6:30 AM EDT [facility]MCHC31.728.4 - 34.8 g/dL03/24/2025 6:30 AM EDTMERCY AQWLLSKSLWUYQQS54.6(H)11.8 - 14.4 %03/24/2025 6:30 AM [facility] Qshpqkffh229481 - 453 k/uL03/24/2025 6:30 AM EDTMERCY VUZDDTMHYNNIFHI63.88.1 - 13.5 fL03/24/2025 6:30 AM EDTMERCY LABORATORIESNRBC [...] - 0.20 k/uL03/24/2025 6:30 AM EDTMERCY LABORATORIESMorphologyANISOCYTOSIS JDIPLWG2403/24/2025 6:30 AM EDTMERCY LABORATORIESMorphologyMACROCYTOSIS MYJFFPV6903/24/2025 6:30 AM EDTMERCY LABORATORIESSpecimen (Source)Anatomical Location / LateralityCollection Method / VolumeCollection TimeReceived TimeBloodBLOOD SPECIMEN / Exvcrhq6503/24/2025 6:30 AM EDT1 7:03 AM EDT Narrative Authorizing ProviderResult TypeResult StatusDimas Andujar MDHEMATOLOGY ORDERABLESFinal ResultPerforming OrganizationAddSelect Specialty Hospital - McKeesportty/State/[place] [address], [facility] [phone] * Protime-INR (03/24/2025 6:30 AM EDT)ComponentValueRef RangeTest MethodAnalysis TimePerformed AtPathologist WiqaoflnzDghhser53.911.7 - 14.9 sec03/24/2025 6:30 AM EDTMERCY LABORATORIESINR1. 6:30 AM EDTMERCY LABORATORIES Comment: ? Therapeutic Range: Moderate Anticoagulant Intensity: INR = 2.0-3.0 High Anticoagulant Intensity: INR = 2.5-3.5 Specimen (Source)Anatomical Location / LateralityCollection Method / Volume Collection TimeReceived TimeBloodBLOOD SPECIMEN / Mvionnh9603/24/2025 6:30 AM EDT 03/24/2025 7:03 AM EDT Narrative Authorizing ProviderResult TypeResult StatusBetty Liu APNHEMATOLOGY ORDERABLESFinal ResultPerforming OrganizationAddressty/State/ZIP CodePhone Number [facility]ARes[facility] [address] [place] [address], [facility] [phone] * (ABNORMAL) Comprehensive Metabolic Panel (03/24/2025 12:48 AM EDT)Component ValueRef RangeTest MethodAnalysis TimePerformed AtPathologist SignatureSodium 129(L)136 - 145 mmol/L1 12:48 AM EDTMERCY LABORATORIESPotassium3.6(L) 3.7 - 5.3 mmol/L1 12:48 AM EDTMERCY UKJYDIWONPHHLhcixoza11(L)98 - 107 mmol/L1 12:48 AM EDTMERCY WTSPIRHRUFBYCG78825 - 31 mmol/L1 12:48 AM EDTMERCY LABORATORIESAnion Rgb501 - 16 mmol/L1 12:48 AM EDT [facility] UUXJJGBBUIOQCcfkiih9628 - 99 mg/dL03/24/2025 12:48 AM EDTMERCY LABORATORIESBUN3(L)6 - 20 mg/dL03/24/2025 12:48 AM EDTMERCY LABORATORIES Creatinine0.3(L)0.6 - 0.9 mg/dL03/24/2025 12:48 AM EDTMERCY LABORATORIES Comment:Specimen icterus has exceeded the interference as defined by Francesco. Result may be affected.Est, Glom Filt Rate>90>60 mL/min/1.46n97703/24/2025 12:48 AM EDTMERCY LABORATORIESComment: ? These results [...] - 1.2 mg/dL03/24/2025 12:48 AM EDTMERCY LABORATORIESAlkaline Itkqjccxoxs457(H) 35 - 104 U/L1 12:48 AM EDTMERCY LVTHPMECIKMLERR20(H)10 - 35 U/L 03/24/2025 12:48 AM EDTMERCY JAPIQIKYBBELACM684(H)10 - 35 U/L1 12:48 AM EDTMERCY LABORATORIESSpecimen (Source)Anatomical Location / Laterality Collection Method / VolumeCollection TimeReceived TimeBloodBLOOD SPECIMEN / Xicovbh4803/24/2025 12:48 AM EDT1 1:01 AM EDT Narrative Authorizing ProviderResult TypeResult StatusDilnoor Chloe MDCHEMISTRY ORDERABLES Final ResultPerforming OrganizationAddressty/State/[place] [address], [facility] [phone] * C DIFF TOXIN/ANTIGEN (03/23/2025 6:24 PM EDT)ComponentValueRef RangeTest MethodAnalysis TimePerformed AtPathologist SignatureSpecimen Description.FECES 03/23/2025 6:24 PM EDTMERCY LABORATORIESC DIFF AG + TOXINNEGATIVENEGATIVE 03/23/2025 6:24 PM EDTMERCY LABORATORIESComment:No C. difficile antigen and Toxin Detected.Specimen (Source)Anatomical Location / LateralityCollection Method / VolumeCollection TimeReceived TimeSTOOL SPECIMEN / Ytkdzsj6003/23/2025 6:24 PM EDT1 6:24 PM EDT Narrative Authorizing ProviderResult TypeResult StatusChristine M Alexa APNMICROBIOLOGY - GENERAL ORDERABLESFinal ResultPerforming OrganizationAddressty/State/[place] [address], [facility] [phone] * Gastrointestinal Panel, Molecular (03/23/2025 6:24 PM EDT)ComponentValueRef RangeTest MethodAnalysis TimePerformed AtPathologist SignatureSpecimen Description.FECES03/23/2025 6:24 PM EDTMERCY LABORATORIESCampylobacter PCR NEGATIVE: No Campylobacter spp. (jejuni or coli) DNA DetectedNEGATIVE: No Campylobacter spp. (jejuni or coli) DNA Klkuijb62/11/2025 6:24 PM EDTMERCY LABORATORIESSalmonella PCRNEGATIVE: No Salmonella spp. DNA DetectedNEGATIVE: No Salmonella spp. DNA Njopbypi76/11/2025 6:24 PM EDTMERCY LABORATORIES Shigatoxin Gene PCRNEGATIVE: No Shiga toxin-producing gene(s) Detected NEGATIVE: No Shiga toxin-producing gene(s) Wvaoovjq43/11/2025 6:24 PM EDTMERCY LABORATORIESShigella Sp PCRNEGATIVE: No Shigella spp. / EIEC DNA Detected NEGATIVE: No Shigella spp. / EIEC DNA Ebgariut34/11/2025 6:24 PM EDTMERCY LABORATORIESPlesiomonas Shigelloides PCRNEGATIVE: No Plesionomas shigelloides DNA DetectedNEGATIVE: No Plesionomas shigelloides DNA Oidepafq29/11/2025 6:24 PM EDTMERCY LABORATORIESVibrio PCRNEGATIVE: No Vibrio [...] enterocolitica DNA DetectedNEGATIVE: No Yersinia enterocolitica DNA Uwckuyte96/11/2025 6:24 PM EDTMERCY LABORATORIESSpecimen (Source)Anatomical Location / LateralityCollection Method / VolumeCollection TimeReceived TimeSTOOL SPECIMEN / Yxjolgs8003/23/2025 6:24 PM EDT1 6:24 PM EDT Narrative Authorizing ProviderResult TypeResult StatusChristine M Alexa APNMICROBIOLOGY - GENERAL ORDERABLESFinal ResultPerforming OrganizationAddressCity/State/ZIP CodePhone Number [address] [phone] * (ABNORMAL) Magnesium (03/23/2025 2:24 PM EDT)ComponentValueRef RangeTest MethodAnalysis TimePerformed AtPathologist SignatureMagnesium1.4(L)1.6 - 2.6 mg/dL03/23/2025 2:24 PM EDTMERCY LABORATORIESSpecimen (Source)Anatomical Location / LateralityCollection Method / VolumeCollection TimeReceived Time 03/23/2025 2:24 PM EDT1 2:37 PM EDT Narrative Authorizing ProviderResult TypeResult StatusDilnoor Chloe MDCHEMISTRY ORDERABLES Final ResultPerforming OrganizationAddressCity/State/ZIP CodePhone Number [facility] [address] [place] [address], [facility] [phone] * (ABNORMAL) Basic Metabolic Panel w/ Reflex to MG (03/23/2025 2:24 PM EDT) ComponentValueRef RangeTest MethodAnalysis TimePerformed AtPathologist BvkugqvtsUdenap589(L)136 - 145 mmol/L1 2:24 PM EDTMERCY LABORATORIES Potassium3.5(L)3.7 - 5.3 mmol/L1 2:24 PM EDTMERCY LABORATORIES Uyfiyfvf65(L)98 - 107 mmol/L1 2:24 PM EDTMERCY QMQXPQNJHLZRGS34636 - 31 mmol/L1 2:24 PM EDTMERCY LABORATORIESAnion Xoq772 - 16 mmol/L 03/23/2025 2:24 PM EDTMERCY WIEGSTALJIYOTherulj5824 - 99 mg/dL03/23/2025 2:24 PM EDTMERCY LABORATORIESBUN5(L)6 [...] MDCHEMISTRY ORDERABLES Final ResultPerforming OrganizationAddressCity/State/ZIP CodePhone Number [facility] [address] [place] [address], [facility] [phone] * (ABNORMAL) Protime-INR (03/23/2025 5:20 AM EDT)ComponentValueRef RangeTest MethodAnalysis TimePerformed AtPathologist NvitygdkiTjdttlu79.0(H)11.7 - 14.9 sec03/23/2025 5:20 AM EDTMERCY LABORATORIESINR1. 5:20 AM EDTMERCY LABORATORIESComment: ? Therapeutic Range: Moderate Anticoagulant Intensity: INR = 2.0-3.0 High Anticoagulant Intensity: INR = 2.5-3.5 Specimen (Source)Anatomical Location / LateralityCollection Method / Volume Collection TimeReceived TimeBloodBLOOD SPECIMEN / Yrhcbam8403/23/2025 5:20 AM EDT 03/23/2025 5:47 AM EDT Narrative Authorizing ProviderResult TypeResult StatusAimee Miester ORTHOPEDICS PEDIATRIC PHYSICIAN - NPHEMATOLOGY ORDERABLESFinal ResultPerforming OrganizationAddressCity/State/ZIP CodePhone Number [facility] [address] [place] [address], [facility] [phone] * TSH reflex to FT4 (03/23/2025 5:20 AM EDT)ComponentValueRef RangeTest Method Analysis TimePerformed AtPathologist SignatureTSH1.960.27 - 4.20 uIU/mL 03/23/2025 5:20 AM EDTMERCY LABORATORIESSpecimen (Source)Anatomical Location / LateralityCollection Method / VolumeCollection TimeReceived Time03/23/2025 5:20 AM EDT1 5:47 AM EDT Narrative Authorizing ProviderResult TypeResult StatusAimee Miester ORTHOPEDICS PEDIATRIC PHYSICIAN - NPCHEMISTRY ORDERABLESFinal ResultPerforming OrganizationAddressCity/State/ZIP CodePhone Number [facility] [address] [place] [address], [facility] [phone] * (ABNORMAL) Lipid, Fasting (03/23/2025 5:20 AM EDT)ComponentValueRef RangeTest MethodAnalysis TimePerformed AtPathologist SignatureCholesterol, Whueohh956(H) 0 - 199 mg/dL03/23/2025 5:20 AM EDTMERCY LABORATORIESComment: Cholesterol Guidelines: <200 Desirable 200-240 ??Borderline >240 Undesirable HDL22(L)>40 mg/dL03/23/2025 5:20 AM EDTMERCY LABORATORIESComment: HDL Guidelines: <40 Undesirable 40-59 ?Borderline >59 Desirable LDL Nlymlivekxg650(H)0 - 100 mg/dL03/23/2025 5:20 AM EDTMERCY LABORATORIES Comment: LDL Guidelines: <100 Desirable 100-129 ?? Near to/above Desirable 130-159 ?? Borderline >159 Undesirable Direct (measured) LDL and calculated LDL are not interchangeable tests. Chol/HDL Ratio16.3(H)<5.010 5:20 AM EDTMERCY LABORATORIESTriglyceride, Uytwnvq8598 - 149 mg/dL03/23/2025 5:20 AM EDTMERCY LABORATORIESComment: Triglyceride Guidelines: <150 Desirable 150-199 ??Borderline 200-499 ??High >499 Very high Based on AHA Guidelines for fasting triglyceride, March 2012. FBQG233 - 30 mg/dL03/23/2025 5:20 AM EDTMERCY LABORATORIESSpecimen (Source) Anatomical Location / LateralityCollection Method / VolumeCollection Time Received TimeBloodBLOOD SPECIMEN / Diyuorq2903/23/2025 5:20 AM EDT1 5:47 AM EDT Narrative Authorizing ProviderResult TypeResult StatusAimee Miester ORTHOPEDICS PEDIATRIC PHYSICIAN - NPCHEMISTRY ORDERABLESFinal ResultPerforming OrganizationAddressCity/State/ZIP CodePhone Number [facility] [address] [place] [id number], [facility] [phone] * (ABNORMAL) CBC auto differential (03/23/2025 5:20 AM EDT)ComponentValueRef RangeTest MethodAnalysis TimePerformed AtPathologist SclrcgzcfSEI59.8(H)3.5 - 11.3 k/uL03/23/2025 5:20 AM EDTMERCY LABORATORIESRBC2.07(L)3.95 - 5.11 m/uL 03/23/2025 5:20 AM EDTMERCY LABORATORIESHemoglobin7.8(L)11.9 - 15.1 g/dL 03/23/2025 5:20 AM EDTMERCY OCAUXSTBNIOYEbkmuwhcgu90.1(L)36.3 - 47.1 % 03/23/2025 5:20 AM EDTMERCY WUCPHAVRPBAAVCS540.4(H)82.6 - 102.9 fL03/23/2025 5:20 AM EDTMERCY UTWOLXGIQLAUKAV40.7(H)25.2 - 33.5 pg03/23/2025 5:20 AM EDT [employer] XIRPZZZLSCRUNFXW81.428.4 - 34.8 g/dL03/23/2025 5:20 AM EDTMERCY XHAOYUFPJMCFEQK74.7(H)11.8 - 14.4 %03/23/2025 5:20 AM EDTMERCY LABORATORIES Bbikxtsue607247 - 453 k/uL03/23/2025 5:20 AM EDTMERCY PPNHWSSDHDRVVJQ12.78.1 - 13.5 fL03/23/2025 5:20 AM EDTMERCY LABORATORIESNRBC [...] - 0.20 k/uL03/23/2025 5:20 AM EDTMERCY LABORATORIESMorphologyMACROCYTOSIS RTQEBSW2203/23/2025 5:20 AM EDTMERCY LABORATORIESMorphologyANISOCYTOSIS MYRISGA4603/23/2025 5:20 AM EDTMERCY LABORATORIESSpecimen (Source)Anatomical Location / LateralityCollection Method / VolumeCollection TimeReceived Time03/23/2025 5:20 AM EDT1 5:47 AM EDT Narrative Authorizing ProviderResult TypeResult StatusAimee Miester ORTHOPEDICS PEDIATRIC PHYSICIAN - NPHEMATOLOGY ORDERABLESFinal ResultPerforming OrganizationAddressCity/State/ZIP CodePhone Number [place] [address], [facility] [phone] * Phosphorus (03/23/2025 5:20 AM EDT)ComponentValueRef RangeTest MethodAnalysis TimePerformed AtPathologist SignaturePhosphorus2.82.5 - 4.5 mg/dL03/23/2025 5:20 AM EDTMERCY LABORATORIESSpecimen (Source)Anatomical Location / Laterality Collection Method / VolumeCollection TimeReceived Time03/23/2025 5:20 AM EDT 03/23/2025 5:47 AM EDT Narrative Authorizing ProviderResult TypeResult StatusAimee Miester ORTHOPEDICS PEDIATRIC PHYSICIAN - NPCHEMISTRY ORDERABLESFinal ResultPerforming OrganizationAddressCity/State/ZIP CodePhone Number [facility] [address] [place] [address], [facility] [phone] * (ABNORMAL) Magnesium (03/23/2025 5:20 AM EDT)ComponentValueRef RangeTest MethodAnalysis TimePerformed AtPathologist SignatureMagnesium1.2(L)1.6 - 2.6 mg/dL03/23/2025 5:20 AM EDTMERCY LABORATORIESSpecimen (Source)Anatomical Location / LateralityCollection Method / VolumeCollection TimeReceived Time 03/23/2025 5:20 AM EDT1 5:47 AM EDT Narrative Authorizing ProviderResult TypeResult StatusAimee Miester ORTHOPEDICS PEDIATRIC PHYSICIAN - NPCHEMISTRY ORDERABLESFinal ResultPerforming OrganizationAddressCity/State/ZIP CodePhone Number [facility] [address] [place] [address], [facility] [phone] * (ABNORMAL) Comprehensive Metabolic Panel w/ Reflex to MG (03/23/2025 5:20 AM EDT)ComponentValueRef RangeTest MethodAnalysis TimePerformed AtPathologist XxzyrtrzaLntpyj586(L)136 - 145 mmol/L1 5:20 AM EDTMERCY LABORATORIES Potassium2.8(LL)3.7 - 5.3 mmol/L1 5:20 AM EDTMERCY LABORATORIES Egafeikn19(L)98 - 107 mmol/L1 5:20 AM EDTMERCY WWJUAUKZGSNQPI19111 - 31 mmol/L1 5:20 AM EDTMERCY LABORATORIESAnion Uvi833 - 16 mmol/L 03/23/2025 5:20 AM EDTMERCY HEOVKTHRJLVFIybfago8995 - 99 mg/dL03/23/2025 5:20 AM EDTMERCY LIGOYXQTEKPFRKF22 - 20 mg/dL03/23/2025 5:20 AM EDTMERCY LABORATORIESCreatinine0.4(L)0.6 [...] - 1.2 mg/dL03/23/2025 5:20 AM EDTMERCY LABORATORIESAlkaline Jlriglqpiqf323(H)35 - 104 U/L1 5:20 AM EDTMERCY WHKLNLGXIVQTRDJ73(H)10 - 35 U/L10 5:20 AM EDTMERCY WKREYOZLKIPIUOH049(H)10 - 35 U/L1 5:20 AM EDTMERCY LABORATORIESSpecimen (Source)Anatomical Location / LateralityCollection Method / VolumeCollection TimeReceived Time03/23/2025 5:20 AM EDT1 5:47 AM EDT Narrative Authorizing ProviderResult TypeResult StatusAimee Mirehabilitation [facility] ORTHOPEDICS PEDIATRIC PHYSICIAN - NPCHEMISTRY ORDERABLESFinal ResultPerforming OrganizationAddressCity/State/ZIP CodePhone Number [facility] [address] [place] [address], [facility] [phone] * (ABNORMAL) Lipase (03/22/2025 9:34 PM EDT)ComponentValueRef RangeTest Method Analysis TimePerformed AtPathologist KrgiuozejVkifss14(L)13 - 60 U/L1 9:34 PM EDTMERCY LABORATORIESSpecimen (Source)Anatomical Location / LateralityCollection Method / VolumeCollection TimeReceived TimeBLOOD SPECIMEN / Gbkuxzh7003/22/2025 9:34 PM EDT1 9:36 PM EDT Narrative Authorizing ProviderResult TypeResult StatusAimee Chao ORTHOPEDICS PEDIATRIC PHYSICIAN - NPCHEMISTRY ORDERABLESFinal ResultPerforming OrganizationAddressCity/State/ZIP CodePhone Number ROBYN Sch[address]eder[address] [place] [address], [facility] [phone] documented in this encounter Visit Diagnoses Diagnosis [...] polyp of ascending colon Hypotension Hypotension, unspecified Common bile duct stricture (HCC) Obstruction of bile duct documented in this encounter Admitting Diagnoses Diagnosis [...] Oral, EVERY 6 HOURS PRN, Starting on 03/22/25 at 1928, Until 03/31/25 at 191, PainMild (1-3) OR per patient request for pain score (4-10), Fever, For temp greater than 100.4 F (38 C), Maximum dose of acetaminophen is 4000 mg from all sources in 24 hours. ALPRAZolam (XANAX) tablet 0.25 mg 0.25 mg, Oral, 3 TIMES DAILY PRN, Starting on 03/30/25 at 1102, Until 03/31/25 at 191, Anxiety Given03/30/2025 11:27 AM EDT0.25 mg aluminum & magnesium hydroxide-simethicone (MAALOX PLUS) 200-200-20 MG/5ML suspension 30 mL 30 mL, Oral, EVERY 6 HOURS PRN, Starting on Tue03/23/25 at 1947, Until Tue03/31/25 at 1911, Indigestion Given03/27/2025 10:18 AM EDT30 mLs bisacodyl (DULCOLAX) suppository 10 mg 10 mg, Rectal, DAILY PRN, Starting on Tue03/27/25 at 1848, Until Tue03/31/25 at 191, Constipation Given03/27/2025 6:50 PM EDT10 mg calcium carbonate (TUMS) chewable tablet 500 mg 500 mg, Oral, 3 TIMES DAILY PRN, Starting on Tue03/23/25 at 1946, Until Tue03/31/25 at 191, Heartburn Given03/24/2025 2:47 PM YEA074 yjVqtfq8303/23/2025 7:56 PM OQP752 mg HYDROmorphone (DILAUDID) injection 0.25 mg 0.25 mg, IntraVENous, EVERY 3 HOURS PRN, Starting on Tue03/22/25 at 2014, Until Tue03/31/25 at 191, Pain Moderate (4-6) OR per [...] respiratory rate <12b/m Given03/30/2025 7:59 AM EDT0.25 dvQblaj4503/29/2025 6:15 AM EDT0.25 mgGiven 03/28/2025 11:29 PM EDT0.25 mg magnesium sulfate 2000 mg in 50 mL IVPB premix 2,000 mg, IntraVENous, at 25 mL/hr, Administer over 2 Hours, PRN, Other, Per Magnesium IV Replacement Protocol, Starting on 03/25/25 at 1119, Mag Lab Replacement Action 1.4-1.6 [...] for use in Patients with CrCl<30ml/min Rate/Dose Ftdmob7203/25/2025 2:13 PM EDT25 mL/hrNew Bag03/25/2025 1:08 PM EDT2,000 mg25 mL/hr melatonin tablet 10 mg 10 mg, Oral, NIGHTLY PRN, Starting on Tue03/22/25 at 2016, Until 03/31/25 at 191, sleep Given03/30/2025 9:14 PM EDT10 rkGnarf3203/29/2025 10:15 PM EDT10 ojDymlw0003/28/2025 11:29 PM EDT10 mg metroNIDAZOLE (METROCREAM) 0.75 % cream Topical, 2 TIMES DAILY, First dose on 03/24/25 at 2100, Apply to face . Given03/31/2025 10:07 AM NSTRcegzZhwwc46/18/2025 8:11 PM WLQSmbxhIzodo43/18/2025 8:08 AM EDTOther midodrine (PROAMATINE) tablet 10 mg 10 mg, Oral, 3 TIMES DAILY WITH MEALS, First dose (after last modification) on Tue03/25/25 at 1200, Until Discontinued, Do not give after 1800 or within 4 hrs of bedtime. Hold if SBP>130 Given03/30/2025 1:05 PM EDT10 cjYyjgn1503/29/2025 4:23 PM EDT10 arSnnbl2203/29/2025 7:49 AM EDT10 mg ondansetron (ZOFRAN) injection 4 mg 4 mg, IntraVENous, EVERY 6 HOURS PRN, Starting on Tue03/22/25 at 1928, Until 03/31/25 at 191,Nausea, Vomiting, Administer if oral route cannot be used. ondansetron (ZOFRAN-ODT) disintegrating tablet 4 mg 4 mg, Oral, EVERY 8 HOURS PRN, Starting on Tue03/22/25 at 1928, Until Tue03/31/25 at 1910, Nausea, Vomiting Given03/29/2025 1:30 PM EDT4 zeSxphf4503/22/2025 8:31 PM EDT4 mg oxyCODONE-acetaminophen (PERCOCET) 5-325 MG per tablet 1 tablet 1 tablet, Oral, EVERY 4 HOURS PRN, Starting on Tue03/26/25 at 1204, Until Tue03/31/25 at 1910, Pain Severe (7-10), Maximum dose of acetaminophen is 4000 mg from all sources in 24 hours. Given03/31/2025 1:06 PM EDT1 nsgbuuBhxkc20/19/2025 6:19 AM EDT1 tabletGiven 03/31/2025 1:38 AM EDT1 tablet pantoprazole (PROTONIX) 40 mg in sodium chloride (PF) 0.9 % 10 mL injection 40 mg, IntraVENous, DAILY, First dose on Tue03/22/25 at 2044, Reconstitute each 40 mg vial with 10mL of 0.9% sodium chloride and administer each 40 mg vial over at least 2 minutes. Given03/31/2025 9:58 AM EDT40 pbOdtbl9603/30/2025 7:59 AM EDT40 irNxojt4803/29/2025 7:49 AM EDT40 mg polyethylene glycol (GLYCOLAX) packet 17 g 17 g, Oral, DAILY PRN, Starting on Tue03/29/25 at 2207, Until Tue03/31/25 at 1910, Constipation, Stir and dissolve one packet of powder (17 g) in any 4 to 8 ounces of beverage (cold, hot or room temperature) then drink Given03/29/2025 10:20 PM EDT17 g potassium bicarb-citric acid (EFFER-K) effervescent tablet 40 mEq 40 mEq, Oral, PRN, Starting on Tue03/22/25 at 1928, Until Tue03/31/25 at 1910, Per Potassium Replacement [...] half swallowed separately. Given03/31/2025 9:58 AM EDT20 fAoYrwkt94/18/2025 7:59 AM EDT20 mEqGiven 03/28/2025 9:17 AM EDT20 mEq potassium chloride (KLOR-CON M) extended release tablet 40 mEq 40 mEq, Oral, PRN, Starting on Tue03/22/25 at 1928, Until Tue03/31/25 at 1911, Potassium Replacement, May give alternative [...] Tue03/22/25 at 1928, Until 03/31/25 at 191, at 100 mL/hr, Other, Potassium [...] with CrCl less than 30 mL/min. Rate/Dose Dubqqh3203/28/2025 4:15 PM OCZ211 mL/hrRate/Dose Itpacd3103/27/2025 10:49 AM ADR642 mL/hrNew Bag03/25/2025 9:10 PM EDT10 dMp732 mL/hr rOPINIRole (REQUIP) tablet 0.25 mg 0.25 mg, Oral, NIGHTLY PRN, Starting on Tue03/22/25 at 2016, Until Tue03/31/25 at 1911, Restless legs Given03/30/2025 9:14 PM EDT0.25 bsRorzn7003/29/2025 10:15 PM EDT0.25 mgGiven 03/28/2025 11:29 PM [...] = 20 mL/lumen Given03/31/2025 10:01 AM EDT10 dMzUvvrd43/18/2025 8:11 PM EDT10 mLsGiven 03/30/2025 8:00 AM EDT10 mLsdocumented in this encounter Active and Recently Administered Medications Times are shown in EDT.Medication Order/ ALPRAZolam (XANAX) tablet 0.25 mg (COMPLETED) 0.25 mg, Oral, Once, 1 dose, On Tue03/29/25 at 1630 * 1623 (Given - Provider: Didi Gipson RN) enoxaparin (LOVENOX) injection 40 mg 40 mg, SubCUTAneous, DAILY, First dose (after last modification) on 03/30/25 at 0900, Until Discontinued, Indication of Use: Prophylaxis-DVT/PE, Administer by deep subCUTAneous injection with pt lying down. Alternate injection sites on abdominal wall. Do not rub site after injection. Check withprovider prior to any invasive procedure. * 1325 (Held by provider - Provider: Isaias Monae DO - Reason: Transfer to a Procedural area) * 0846 (Unheld by provider - Provider: Fred Tracy, DO) * 1101 (Not Given - Provider: [...] 1213 (New Bag - Provider: Chan Galvin, MARIAJOSE) * 1415 (Stopped - Provider: Chan Galvin, MARIAJOSE) * 1433 (Stopped - Provider: Chan Galvin, MARIAJOSE) metroNIDAZOLE (METROCREAM) 0.75 % cream Topical, 2 TIMES DAILY, First dose on Tue03/24/25 at 2100, Apply to face . * 0749 (Given - Provider: Didi Gipson RN - Comment: face) * 0839 (MAR Hold - Provider: [facility] [employer] - Reason: Unreviewed Transfer Orders) * 1325 ([facility] Unhold - Provider: Didi Gipson RN) * 205 (Given - Provider: Stacey Chandra RN - [...] RN) * 0839 (MAR Hold - Provider: [facility] [employer] - Reason: Unreviewed Transfer Orders) * 1200 (Not Given - Provider: Didi Gipson RN - Reason: Order parameters not met) * 1325 ([facility] Unhold - Provider: Didi Gipson RN) * [...] bedtime. * 0839 (AUG Hold - Provider: [facility] [employer] - Reason: Unreviewed Transfer Orders) * 1325 (AUG Unhold - Provider: Didi Gipson RN) pantoprazole [...] RN) * 0839 (AUG Hold - Provider: [facility] [employer] - Reason: Unreviewed Transfer [...] RN) * 0050 (Stopped - Provider: Giovanny El, RN) * 0411 (New Bag - Provider: Giovanny El, RN) * 0811 (Stopped - Provider: Didi Gipson RN) * 0839 (AUG Hold - Provider: [facility] [employer] - Reason: Unreviewed Transfer Orders) * 1023 (Canceled Entry - Provider: Carmela Lopez APRN - TRAUMA SURGEON) * 1200 (Not Given - Provider: Didi Gipson RN - Reason: Other - Comment: given in or) * 1325 (AUG Unhold - Provider: Didi Gipson RN) * 2050 (New Bag - Provider: Stacey Chandra RN) * 0052 (Stopped - Provider: Chan Galvin, RN) * 0213 (Stopped - Provider: Stacey Chandra, RN) * 0358 (New Bag - Provider: Stacey Chandra RN) * 0758 (Stopped - Provider: Chan Galvin, RN) * 1309 (New Bag - Provider: Chan Galvin, RN) * 1529 (Paused - Provider: Chan Gavlin, RN) * 1549 (Restarted - Provider: Chan Galvin, RN) * 1616 (Rate/Dose Verify - Provider: Chan Galvin, RN) * 1733 (Stopped - Provider: Chan Galvin, MARIAJOSE) * 1813 (Stopped - Provider: Chan Galvin, MARIAJOSE) * 2009 (New Bag - Provider: Stacey Chandra RN) * 0116 (Stopped - Provider: Stacey [...] NPO) * 0839 (MAR Hold - Provider: [facility] [employer] - Reason: Unreviewed Transfer Orders) * 1325 (MAR Unhold - Provider: Didi Gipson RN) * 0759 (Given - Provider: Chan Galvin, MARIAJOSE) * 0958 (Given - Provider: Chan Galvin, MAIRAJOSE) potassium chloride (KLOR-CON M) extended release tablet 40 mEq (COMPLETED) 40 mEq, Oral, ONCE, 1 dose, On 03/30/25 at 1130, Do not crush, chew, or suck on tablet. Tablet may also be broken in half and each half swallowed separately. * 1127 (Given - Provider: Chan Galvin, MARIAJOSE) sodium chloride flush 0.9 % injection 5-40 [...] mL/lumen * 0749 (Given - Provider: Didi Gipson, RN) * 0839 ([facility] Hold - Provider: Lacey Autohold - Reason: Unreviewed Transfer Orders) * 1325 ([facility] Unhold - Provider: Didi Gipson, RN) * [...] interruptions/ long duration, Starting on Tue03/22/25 at 1928, For piggyback infusion, administer at same rate [...] into rate field of order. * 0839 ([facility] Hold - Provider: Lacey Autohold - Reason: Unreviewed Transfer Orders) * 1325 ([facility] Unhold - Provider: Didi Gipson, MARIAJOSE) acetaminophen (TYLENOL) suppository 650 mg(Linked Group 1) 650 mg, Rectal, EVERY 6 HOURS PRN, Starting on Tue03/22/25 at 1928, Until Tue03/31/25 at 1911, Pain Mild (1-3) OR per patient request for pain score (4-10), Fever, For temp greater than 100.4 F (38C), Administer if oral route cannot be used. * 0839 ([facility] Hold - Provider: [facility] Autohold - Reason: Unreviewed Transfer Orders) * 1325 ([facility] Unhold - Provider: Didi Gipson, RN) acetaminophen (TYLENOL) tablet 650 mg(Linked Group 1) 650 mg, Oral, EVERY 6 HOURS PRN, Starting on 03/22/25 at 1928, Until 03/31/25 at 191, PainMild (1-3) OR per patient request for pain score (4-10), Fever, For temp greater than 100.4 F (38 C), Maximum dose of acetaminophen is 4000 mg from all sources in 24 hours. * 0839 ([facility] Hold - Provider: [facility] - Reason: Unreviewed Transfer Orders) * 1325 ([facility] Unhold - Provider: Didi Gipson RN) ALPRAZolam (XANAX) tablet 0.25 mg 0.25 mg, Oral, 3 TIMES DAILY PRN, Starting on 03/30/25 at 1102, Until 03/31/25 at 1911, Anxiety * 1127 (Given - Provider: Chan Galvin RN) aluminum & magnesium hydroxide-simethicone (MAALOX PLUS) 200-200-20 MG/5ML suspension 30 mL 30 mL, Oral, EVERY 6 HOURS PRN, Starting on 03/23/25 at 1947, Until 03/31/25 at 1911, Indigestion * 0839 ([facility] Hold - Provider: [facility] [employer] - Reason: Unreviewed Transfer Orders) * 1325 ([facility] Unhold - Provider: Didi Gipson, MARIAJOSE) bisacodyl (DULCOLAX) suppository 10 mg 10 mg, Rectal, DAILY PRN, Starting on 03/27/25 at 1848, Until 03/31/25 at 191, Constipation * 0839 ([facility] Hold - Provider: [facility] [employer] - Reason: Unreviewed Transfer Orders) * 1325 ([facility] Unhold - Provider: Didi Gipson, MARIAJOSE) BUPivacaine-EPINEPHrine PF (MARCAINE-w/EPINEPHrine) 0.5% -1:[id number] injection (CANCELED) PRN, Starting on Tue03/29/25 at 1026, Until Tue03/29/25 at 1150, Intra-op * 1026 (Given - Provider: Manjula Sue MD - Comment: INJECTED AT [facility]) calcium carbonate (TUMS) chewable tablet 500 mg 500 mg, Oral, 3 TIMES DAILY PRN, Starting on 03/23/25 at 1946, Until 03/31/25 at 1911, Heartburn * 0839 ([facility] Hold - Provider: Lacey Autohold - Reason: Unreviewed Transfer Orders) * 1325 ([facility] Unhold - Provider: Didi Gipson, RN) HYDROmorphone (DILAUDID) injection 0.25 mg 0.25 mg, IntraVENous, EVERY 3 HOURS PRN, Starting on Tue03/22/25 at 2014, Until 03/31/25 at 1911, Pain Moderate (4-6) OR per [...] - Provider: Giovanny El RN) * 0839 ([facility] Hold - Provider: Lacey Autohold - Reason: Unreviewed Transfer Orders) * 1325 ([facility] Unhold - Provider: Didi Gipson, MARIAJOSE) * [...] Per Magnesium IV Replacement Protocol, Starting on 03/25/25 at 1119, Mag Lab Replacement Action 1.4-1.6 [...] at 1,000 mg/hr consecutively Repeat Mag level next AM Protocol not for use in Patients with CrCl<30ml/min * 0839 ([facility] Hold - Provider: Lacey Autohold - Reason: Unreviewed Transfer Orders) * 1325 ([facility] Unhold - Provider: Didi Gipson, RN) melatonin tablet 10 mg 10 mg, Oral, NIGHTLY PRN, Starting on Tue03/22/25 at 2016, Until Tue03/31/25 at 1911, sleep * 0839 ([facility] Hold - Provider: [facility] [employer] - Reason: Unreviewed Transfer Orders) * 1325 ([facility] Unhold - Provider: Didi Gipson, RN) * 2215 (Given - Provider: Stacey Chandra, RN) * 2114 (Given - Provider: Stacey Chandra, RN) midazolam PF (VERSED) IntraVENous 2 mg (COMPLETED) 2 mg, IntraVENous, ONCE PRN, 1 dose, Starting on Tue03/29/25 at 1211, Until Tue03/29/25 at 1223, Anxiety, PACU only * 1223 (Given - Provider: Cris Chahal, RN) ondansetron (ZOFRAN) injection 4 mg(Linked Group 2) 4 mg, IntraVENous, EVERY 6 HOURS PRN, Starting on Tue03/22/25 at 1928, Until 03/31/25 at 1911,Nausea, Vomiting, Administer if oral route cannot be used. * 0839 ([facility] Hold - Provider: Lacey Autohold - Reason: Unreviewed Transfer Orders) * 1325 ([facility] Unhold - Provider: Didi Gipson, RN) * 1330 (See Alternative - Provider: Didi Gipson, MARIAJOSE) ondansetron (ZOFRAN-ODT) disintegrating tablet 4 mg(Linked Group 2) 4 mg, Oral, EVERY 8 HOURS PRN, Starting on Tue03/22/25 at 1928, Until Tue03/31/25 at 191, Nausea, Vomiting * 0839 ([facility] Hold - Provider: [facility] [employer] - Reason: Unreviewed Transfer Orders) * 1325 ([facility] Unhold - Provider: Didi Gipson RN) * 1330 (Given - Provider: Didi Gipson RN) oxyCODONE-acetaminophen (PERCOCET) 5-325 MG per tablet 1 tablet 1 tablet, Oral, EVERY 4 HOURS PRN, Starting on Tue03/26/25 at 1204, Until Tue03/31/25 at 191, Pain Severe (7-10), Maximum dose of acetaminophen is 4000 mg from all sources in 24 hours. * 0839 ([facility] Hold - Provider: [facility] [employer] - Reason: Unreviewed Transfer Orders) * 1325 ([facility] Unhold - Provider: Didi Gipson RN) * 1330 (Given - Provider: Didi Gipson RN) * 1821 (Given - Provider: Didi Gipson, MARIAJOSE) * 2216 (Given - Provider: Stacey Chandra, MARIAJOSE) * 0603 (Given - Provider: Stacey Chandra, [...] dilute ifGI adverse effects occur. * 0839 ([facility] Hold - Provider: Lacey Autohold - Reason: Unreviewed Transfer Orders) * 1325 ([facility] Unhold - Provider: Didi Gipson RN) potassium [...] and each half swallowed separately. * 0839 ([facility] Hold - Provider: Lacey Autohold - Reason: Unreviewed Transfer Orders) * 1325 ([facility] Unhold - Provider: Didi Gipson RN) potassium chloride 10 mEq/100 mL IVPB (Peripheral Line)(Linked Group 3) 10 mEq, IntraVENous, PRN, Starting on Tue03/22/25 at 1927, Until Tue03/31/25 at 1910, at 100 mL/hr, [...] CrCl less than 30 mL/min. * 0839 ([facility] Hold - Provider: Lacey Autohold - Reason: Unreviewed Transfer Orders) * 1325 ([facility] Unhold - Provider: Didi Gipson, RN) rOPINIRole (REQUIP) tablet 0.25 mg 0.25 mg, Oral, NIGHTLY PRN, Starting on Tue03/22/25 at 2016, Until Tue03/31/25 at 1911, Restless legs * 0839 ([facility] Hold - Provider: Lacey Autohold - Reason: Unreviewed Transfer Orders) * 1325 ([facility] Unhold - Provider: Didi Gipson, RN) * 2215 (Given - Provider: Stacey Chandra, RN) * 4 (Given - Provider: Stacey Chandra, RN) sod chloride IRR soln 0.9 % irrigation (CANCELED) CONTINUOUS PRN, Starting on Tue03/29/25 at 0945, Intra-op * 0945 (New Bag - Provider: Manjula Sue MD - Comment: POURED TO BACK TABLE) * 1045 (New Bag - Provider: Manjula Sue MD - Comment: 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) * 1136 (New Bag - Provider: Manjula [...] After every IV line use * 0839 ([facility] Hold - Provider: Lacey Autohold - Reason: Unreviewed Transfer Orders) * 1325 ([facility] Unhold - Provider: Didi Gipson, MARIAJOSE) sodium chloride flush 0.9 % injection 10 mL 10 mL, IntraVENous, PRN, Starting on 03/24/25 at 0855, Until Tue03/31/25 at 1911, Line Care * 0839 ([facility] Hold - Provider: Lacey Autohold - Reason: Unreviewed Transfer Orders) * 1325 ([facility] Unhold - Provider: Didi Gipson RN) Order Group 1: acetaminophen (TYLENOL) tablet 650 mgJump to med 650 mg, Oral, EVERY 6 HOURS PRN, Starting on Tue03/22/25 at 1927, Until Tue03/31/25 at 1910, PainMild (1-3) OR per patient [...] Tue03/22/25 at 192, Until Tue03/31/25 at 1910, Potassium Replacement, May [...] further dilute if GI adverse effects occur. Or potassium chloride 10 mEq/100 mL IVPB (Peripheral Line)Jump to med 10 mEq, IntraVENous, PRN, Starting on Tue03/22/25 at 1928, Until 03/31/25 at 191, at 100 mL/hr, Other, Potassium [...] MemberRelationshipSpecialtyStart DateEnd Sudhir Gonzalez MD [address] [phone] PCP - GeneralFamily Uzfedjmb90/10/25documented as of this encounter
--- OUTSIDE RECORDS SUMMARY | 2025-03-26 15:55 | XMS_ITS | Encounter Summary ---
Author Organization [facility] Address [address], [address] [place] [address] Care Team Providers Care Systems Test Technician Name Role Phone Sudhir Gonzalez MD Primary Care Provider [phone] Reason for Visit * Auth/CertSpecialtyDiagnoses / ProceduresReferred By ContactReferred To Contact Diagnoses Acute cholecystitis [facility] [address] [place] [address] Phone: tel: [facility] [employer] [facility] [address] [place] [address] Referral IDStatusReasonStart DateExpiration DateVisits RequestedVisits [id number] Encounter Details DateTypeDepartmentCare Team (Latest Contact Info)Vejayuupfer61/14/2025 3:55 PM EDTAnesthesia Event [facility] [address] [place] [address] Dianne Galeana MD [address] [address] [address] [place] [address] Anesthesia Record Procedure NameResponsible AnesthesiologistAnesthesia Start TimeAnesthesia Stop TimeENDOSCOPIC RETROGRADE CHOLANGIOPANCREATOGRAPHY STENT INSERTIONDianne Galeana MD03/26/25 [id number] 4715YsecGpayFvpzeSjivgqb79/14/[id number] StartLocation: {AN Start Location:[id number]}1555An Start Wpye0543Fv InductionThe patient was reevaluated immediately before anesthesia induction.1610An Grstwfvyvg9693Himlvjysrr Uqpyf5312Pevepxk9472Yd Zntzpefqov8831dd stop wmoo8275 Handoff to RNVital signs are within acceptable limits and stable, SBAR handoff/transfer of care to RN. Patient Handoff Status: Level of Response: -- Oxygen device: -- Airway Status: -- BP: -- Pulse: -- SpO2: -- Respirations: -- Temp: -- Temp Source: --1807An Stop* NameTotalpropofol 10 mg/mL 200 MG/65YW120 mglidocaine PF 1 %50 mgrocuronium 50 MG/5ML85 mgfentaNYL 100 MCG/1BC595 mcg midazolam 2 MG/2ML2 mgceFAZolin 1 g2 gphenylephrine (RYAN-SYNEPHRINE) 1mg/10mL Hbpbapwhb412 mcgVASOpressin (PITRESSIN) injection 20 units/mL0.5 Units glycopyrrolate (ROBINUL) 1 mg/5 mL injection0.2 mgsugammadex 200 MG/2RI067 mg glucagon (rDNA) injection0.2 mglactated ringers epgqrgnd353 mL * Agents Name O2 Air Sevoflurane Inspired Sevoflurane Inspired N2O N2O * Blood No blood administrations on file. TypeDetailsPlacementRemovalPeripheral IVPlacement date 03/23/25; Placement time 0937; Size 22 g; Orientation Right, Anterior; Location Cephalic; Local anesthetic None; Removal date 04/02/25; Removal time [id number] by Ananya Martínez RN04/02/25 0511 by Discharge Provider, AutomaticPeripheral IV Placement date 03/23/25; Placement time 0937; Size 22 g; Orientation Right, Anterior; Location Forearm; Local anesthetic None; Removal date 03/27/25; Removal time 0354; Removal reason Ejqywid49/11/25 0937 by Ananya Martínez RN 03/27/25 0354 by Ernesto Crain RNETTPlacement date 03/26/25; Placement time 1610; Preoxygenation Yes; Technique Direct laryngoscopy, Stylet; Type Cuffed; Tube size 7 mm; Laryngoscope Mac; Blade size 3; Location Oral; Grade view 1; Insertion attempts 1; Atraumatic Yes03/26/25 1610 by Tracy Flores APRN - CRNA03/26/25 1750 by Milly Sabillon RNdocumented in this encounter Social History Tobacco UseTypesPacks/DayYears UsedDateSmoking Tobacco: Every OydYlutvigjqo149.4 Started: 11/1995Alcohol UseStandard Drinks/WeekCommentsYes3 (1 standard drink [...] were you homeless or living in a intermediate (including now)?No 03/22/2025Hunger Vital SignAnswerDate RecordedWithin the [...] Domain Source: IP Abuse ScreeningAnswerDate Recorded Physical taeyxNwpbiu48/13/2025Verbal vfmlbDxzaar28/13/2025Emotional abuseDenies 03/25/2025Financial tvodnHvxcfv86/13/2025Sexual mzsosHqmvmz48/13/2025 CommentsUnknownSex and Gender InformationValueDate RecordedSex Assigned at Not on fileLegal AnfTprmum46/10/2025 3:15 PM EDTGender IdentityNot on fileSexual OrientationNot on filedocumented as of this encounter Plan of Treatment Not on file documented as of this encounter Visit Diagnoses Not on filedocumented in this encounter Administered Medications Medication OrderMAR ActionAction DateDoseRateSite ceFAZolin (ANCEF) injection IntraVENous, ANES ONCE PRN, Starting on Tue03/26/25 at 1639, Until Tue03/26/25 at 1807, Intra-op Given03/26/2025 4:39 PM EDT2 g fentaNYL (SUBLIMAZE) injection IntraVENous, ANES ONCE PRN, Starting on Tue03/26/25 at 1602, Until Tue03/26/25 at 1807, Intra-op Given03/26/2025 4:02 PM HXZ693 mcg glucagon (rDNA) injection IntraVENous, ANES ONCE PRN, Starting on Tue03/26/25 at 1734, Until Tue03/26/25 at 1807, Intra-op Given03/26/2025 5:34 PM EDT0.2 mg glycopyrrolate (ROBINUL) injection IntraVENous, ANES ONCE PRN, Starting on Tue03/26/25 at 1655, Until Tue03/26/25 at 1807, Intra-op Given03/26/2025 4:55 PM EDT0.2 mg lactated ringers infusion IntraVENous, ANES CONTINUOUS PRN, Starting on Tue03/26/25 at 1555, Intra-op Omyyynpup95/14/2025 5:49 PM EDTNew Bag03/26/2025 3:55 PM XYD506 mL/hr lidocaine PF 1 % injection IntraVENous, ANES ONCE PRN, Starting on Tue03/26/25 at 1602, Until Tue03/26/25 at 1807, Intra-op Given03/26/2025 4:02 PM EDT50 mg midazolam (VERSED) IntraVENous IntraVENous, ANES ONCE PRN, Starting on Tue03/26/25 at 1556, Until Tue03/26/25 at 1807, Intra-op Given03/26/2025 3:56 PM EDT2 mg phenylephrine (RYAN-SYNEPHRINE) 1 MG/10ML prefilled syringe (Push Dose) IntraVENous, ANES ONCE PRN, Starting on Tue03/26/25 at 1641, Until Tue03/26/25 at 1807, Intra-op Given03/26/2025 5:18 PM EDT50 ldsHgzsg01/14/2025 4:53 PM VSD308 mcgGiven 03/26/2025 4:41 PM JIH411 mcg propofol 10 mg/mL infusion IntraVENous, ANES ONCE PRN, Starting on Tue03/26/25 at 1602, Until Tue03/26/25 at 1807, Intra-op Given03/26/2025 4:02 PM LNU442 mg rocuronium (ZEMURON) injection IntraVENous, ANES ONCE PRN, Starting on Tue03/26/25 at 1602, Until Tue03/26/25 at 1807, Intra-op Given03/26/2025 5:02 PM EDT15 ebCmcnx8803/26/2025 4:30 PM EDT20 fqYukyc1003/26/2025 4:07 PM EDT20 mg sugammadex (BRIDION) 200 MG/2ML injection IntraVENous, ANES ONCE PRN, Starting on Tue03/26/25 at 1748, Until Tue03/26/25 at 1807, Intra-op Given03/26/2025 5:48 PM FSX591 mg VASOpressin injection IntraVENous, ANES ONCE PRN, Starting on Tue03/26/25 at 1655, Until Tue03/26/25 at 1807, Intra-op Given03/26/2025 4:55 PM EDT0.5 Unitsdocumented in this encounter Care Teams Team MemberRelationshipSpecialtyStart DateEnd Date Sudhir Gonzalez MD [address] [place] [address] PCP - GeneralFamily Pqhelepv16/10/25documented as of this encounter
--- OUTSIDE RECORDS SUMMARY | 2025-03-29 09:57 | XMS_ITS | Encounter Summary ---
Author Organization [facility] Address [address], [address] [place] [address] Care Team Providers Care Gis Consultant Name Role Phone Sudhir Gonzalez MD Primary Care Provider [phone] Reason for Visit * Auth/CertSpecialtyDiagnoses / ProceduresReferred By ContactReferred To Contact Diagnoses Acute cholecystitis [facility] [address] [place] [address] Phone: tel: [facility] [address] [place] [address] Referral IDStatusReasonStart DateExpiration DateVisits RequestedVisits [id number] Encounter Details DateTypeDepartmentCare Team (Latest Contact Info)Prkeuufyszw60/17/2025 9:57 AM EDTAnesthesia Event [facility] OR [address] [place] [address] Vik Veras MD [facility] [place] [address] Carmela Lopez, SCHOLARSHIP COUNSELOR - [facility] Anesthesia Record Procedure NameResponsible AnesthesiologistAnesthesia Start TimeAnesthesia Stop TimeROBOTIC LAPAROSCOPIC CHOLECYSTECTOMYMoVik singh MD03/29/25 0957 03/29/25 6542XobaVyvfZlkcuWigltdi35/17/60741243Dezg on Time Start?First case of the day? {MH AN FIRST CASE:[id number]} On Time Start? {MH AN DELAY:128914069} If No, Delay due to: {MH AN CASE ON TIME:477980131}47822085Qg StartLocation: {AN Start Location:[id number]}0957An Start Mknz8644Qvkyztb1254Hn InductionThe patient was reevaluated immediately before anesthesia induction.1009An Fgjvnuuyqh1146 Anesthesia Hcfwt7047fg sonny nowSteep reverse t-jjgh5214Fw Tdtesfljxr1861by stop wnqk5700Ajsoqgp to RNVital signs are within acceptable limits and stable, SBAR handoff/transfer of care to RN. Patient Handoff Status: Level of Response: Drowsy Oxygen device: Oxygen mask Airway Status: Patent BP: -- Pulse: -- SpO2: -- Respirations: -- Temp: -- Temp Source: -- Disposition: PACU PACU Checklist: Identification of patient;Identification of responsible practitioner (PACU Nurse or advanced practitioner);Discussion of the surgical/procedure course (procedure, reason for surgery, procedure performed);Discussion of pertinent medical history;Intraoperative anesthetic management and issues/concerns;Expectations/plans for the early post-procedure period;Opportunity for questions and acknowledgement of understanding of report from the receiving PACU bbpp6930So Stop* NameTotalpropofol 10 mg/mL 200 MG/20ML 100 mglidocaine PF 1 %50 mgdexAMETHasone 10 MG/ML10 mgondansetron 4 MG/2ML4 mg rocuronium 50 MG/5ML70 mgfentaNYL 100 MCG/6ZJ274 mcgketamine 50 MG/5ML30 mg piperacillin-tazobactam (ZOSYN) injection 3.375 g3.375 gphenylephrine (RYAN- SYNEPHRINE) injection 10 mg/mL450 mcgsugammadex 200 MG/3LO100 mgketorolac (TORADOL) injection 30 mg/mL15 mglactated ringers infusion1,200 mL * Agents Name O2 N2O Air Sevoflurane Inspired Sevoflurane Inspired N2O N2O * Blood No blood administrations on file. IcopEcnqogcWqnftxhbdYmtkxvrCpdca35/17/25; 1026; N; Surgical; Abdomen; Lower, Medial; MULTIPLE LAP SITES03/29/25 1026 by Donna Fajardo RNPeripheral IV Placement date 03/23/25; Placement time 0937; Size 22 g; Orientation Right, Anterior; Location Cephalic; Local anesthetic None; Removal date 04/02/25; Removal time [id number] 0937 by Ananya Martínez RN04/02/25 0511 by Discharge Provider, AutomaticETTPlacement date 03/29/25; Placement time 1009; Preoxygenation Yes; Technique Direct laryngoscopy, Stylet; Type Cuffed; Tube size 7 mm; Laryngoscope Mac; Blade size 3; Location Oral; Grade view 1; Inser tion attempts 1; Atraumatic Yes03/29/25 1009 by Carmela Lopez APRN - LEROY 03/29/25 1159 by Carmela Lopez APRN - CRNAdocumented in this encounter Social History Tobacco UseTypesPacks/DayYears UsedDateSmoking Tobacco: Every HvyWsayabsged963.4 Started: 11/1995Alcohol UseStandard Drinks/WeekCommentsYes3 (1 standard drink [...] Domain Source: IP Abuse ScreeningAnswerDate Recorded Physical yhdasOlxxiu20/13/2025Verbal wfdgcOhelxd10/13/2025Emotional abuseDenies 03/25/2025Financial kwetlFngzjr60/13/2025Sexual ieurpPlqqvs43/13/2025 CommentsUnknownSex and Gender InformationValueDate RecordedSex Assigned at Not on fileLegal KywWdyfol69/10/2025 3:15 PM EDTGender IdentityNot on fileSexual OrientationNot on filedocumented as of this encounter Plan of Treatment Not on file documented as of this encounter Visit Diagnoses Not on filedocumented in this encounter Administered Medications Medication OrderMAR ActionAction DateDoseRateSite dexAMETHasone (DECADRON) IntraVENous IntraVENous, ANES ONCE PRN, Starting on Tue03/29/25 at 1015, Until Tue03/29/25 at 1208, Intra-op Given03/29/2025 10:15 AM EDT10 mg fentaNYL (SUBLIMAZE) injection IntraVENous, ANES ONCE PRN, Starting on Tue03/29/25 at 1005, Until Tue03/29/25 at 1208, Intra-op Given03/29/2025 12:00 PM EDT50 nyrJvbwr36/17/2025 11:02 AM EDT50 mcgGiven 03/29/2025 10:05 AM AIC539 mcg ketamine (KETALAR) IntraVENous IntraVENous, ANES ONCE PRN, Starting on Tue03/29/25 at 1034, Until Tue03/29/25 at 1208, Intra-op Given03/29/2025 11:33 AM EDT10 bbZgzlc8203/29/2025 10:34 AM EDT20 mg ketorolac (TORADOL) injection IntraVENous, ANES ONCE PRN, Starting on Tue03/29/25 at 1146, Until Tue03/29/25 at 1208, Intra-op Given03/29/2025 11:46 AM EDT15 mg lactated ringers infusion IntraVENous, ANES CONTINUOUS PRN, Starting on Tue03/29/25 at 0957, Intra-op New Bag03/29/2025 11:16 AM EDTNew Bag03/29/2025 9:57 AM EDT lidocaine PF 1 % injection IntraVENous, ANES ONCE PRN, Starting on Tue03/29/25 at 1005, Until Tue03/29/25 at 1208, Intra-op Given03/29/2025 10:05 AM EDT50 mg ondansetron (ZOFRAN) injection IntraVENous, ANES ONCE PRN, Starting on Tue03/29/25 at 1137, Until Tue03/29/25 at 1208, Intra-op Given03/29/2025 11:37 AM EDT4 mg phenylephrine (RYAN-SYNEPHRINE) injection IntraVENous, ANES ONCE PRN, Starting on Tue03/29/25 at 1052, Until Tue03/29/25 at 1208, Intra-op Given03/29/2025 11:15 AM SMR593 dcbHdedx88/17/2025 11:05 AM IYB966 mcgGiven 03/29/2025 10:57 AM JKW647 mcg piperacillin-tazobactam (ZOSYN) injection IntraVENous, ANES ONCE PRN, Starting on Tue03/29/25 at 1025, Until Tue03/29/25 at 1208, Intra-op Given03/29/2025 10:25 AM EDT3.375 g propofol 10 mg/mL infusion IntraVENous, ANES ONCE PRN, Starting on Tue03/29/25 at 1005, Until Tue03/29/25 at 1208, Intra-op Given03/29/2025 10:05 AM WUA319 mg rocuronium (ZEMURON) injection IntraVENous, ANES ONCE PRN, Starting on Tue03/29/25 at 1005, Until Tue03/29/25 at 1208, Intra-op Given03/29/2025 11:35 AM EDT5 uyHgawr3403/29/2025 11:14 AM EDT5 yvZqibp7903/29/2025 10:59 AM EDT10 mg sugammadex (BRIDION) 200 MG/2ML injection IntraVENous, ANES ONCE PRN, Starting on Tue03/29/25 at 1156, Until Tue03/29/25 at 1209, Intra-op Given03/29/2025 11:56 AM REA150 mgdocumented in this encounter Care Teams Team MemberRelationshipSpecialtyStart DateEnd Date Sudhir Gonzalez MD [address] [phone] PCP - GeneralFamily Fssopquf02/10/25documented as of this encounter
--- OUTSIDE RECORDS SUMMARY | 2025-03-29 10:00 | XMS_ITS | Encounter Summary ---
Author Organization [facility] [employer] [facility] Address [address], [address] [place] [address] Care Team Providers Care Vp Integrity Name Role Phone Sudhir Gonzalez MD Primary Care Provider [phone] Reason for Visit * Auth/CertSpecialtyDiagnoses / ProceduresReferred By ContactReferred To Contact Diagnoses Acute cholecystitis [facility] 5A Stepdown [address] [place] [address] Phone: tel: [facility] [employer] [facility] [address] [place] [address] Referral IDStatusReasonStart DateExpiration DateVisits RequestedVisits [id number] Encounter Details DateTypeDepartmentCare Team (Latest Contact Info)Bhpbtifejmp17/17/2025 10:00 AM EDT - 03/29/2025 12:00 PM EDTSurgery [facility] OR [address] [place] [address] Manjula Sue MD [address] [place] [address] ROBOTIC LAPAROSCOPIC CHOLECYSTECTOMY Surgery Details Date/TimeStatusLocationORServicePatient ClassCase ClassCase TypeTrauma Case? 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 documented in this encounter Social History Tobacco UseTypesPacks/DayYears UsedDateSmoking Tobacco: Every XohWcddhhxepz858.4 Started: 11/1995 Tobacco Cessation:Ready to Q uit: [...] were you homeless or living in a nursing home (including now)?No03/22/2025 Hunger Vital SignAnswerDate RecordedWithin the [...] Safety Domain Source: IP Abuse ScreeningAnswerDate RecordedPhysical cscqhUtojhw44/13/2025Verbal abuseDenies 03/25/2025Emotional tyhxySucgjm43/13/2025Financial tfvmpLcbhwa23/13/2025Sexual npqreUvbqut73/13/2025CommentsUnknownSex and Gender InformationValueDate RecordedSex Assigned at BirthNot on fileLegal MiwNeugks81/10/2025 3:15 PM EDT Gender IdentityNot on fileSexual OrientationNot on filedocumented as of this encounter Last Filed Vital Signs Vital SignReadingTime TakenCommentsBlood Mmyqbwni773/9403/29/2025 8:42 AM EDT Xofkx135803/29/2025 8:42 AM DCBCzzvddpilyn72.4 ??C (97.5 ??F)03/29/2025 8:36 AM EDTRespiratory Udww5098 9:09 AM EDTOxygen Hixffhlbef28%03/29/2025 8:42 AM EDTInhaled Oxygen Concentration--Wcjdzi59.1 kg (119 lb 4.3 oz)03/22/2025 7:31 PM VNVEaavoi271.2 cm (5' 7.01 )03/26/2025 11:37 AM EDTBody Mass Index18.68 03/22/2025 7:31 PM EDTdocumented in this encounter Discharge Summaries * Marvel Ng MD - 03/31/2025 9:09 AM EDT Images from the original note were not included. [facility] Office: [phone] Marquez Scott DO, Garth Casanova DO, Kenny [...] Za Del Valle CNP, Jarred Sandoval CNP, Declan, [facility], Gabby Epstein, [employer] [facility], Carmen Pack, [employer], Amber Del Toro, [employer], Lula Alvarado, [employer], Julia Ortiz PA-C, Linda Guirdy, [employer], Lillie Gipson, [employer], Magaly Lind, [facility], Ni Rodriguez, [employer], Shaun Cabrales, [facility], KASH LynchC, Shivani Díaz, [employer], Lily Esteves, [facility], Tracy Richardson, [facility], Carmela Wills, [facility], Sheila Smith, [facility], Kate Macias, [facility], Jeanie Fox, [facility] IN-PATIENT SERVICE [facility] Discharge Summary Patient ID: Eneida Mejia : 1975 ACCOUNT: [id number] Patient's PCP: Sudhir Gonzalez MD Admit Date: [...] alcohol abuse presented as a transfer from [facility] for management of acute cholecystitis and [...] Home Physician Follow Up: Dimas Andujar MD [address] [address] Follow up in 2 week(s) Diet: regular [...] Medications These medications were sent to [facility], [place] - [address] - P [phone] - F [phone] [address] [place] [address] midodrine 5 MG tablet oxyCODONE-acetaminophen 5-325 MG [...] MG tablet Take 1 tablet by mouth rmempwd3101/10/2025 oxyCODONE-acetaminophen (PERCOCET) 5-325 MG per tablet Indications:Common bile duct stricture (HCC)Take 1 tablet by mouth every 4 hours as needed for Pain for up to 5 days. Max Daily Amount: 6 tablets 15 tablet documented as of this encounter Progress Notes * Isaias Monae, DO - 03/31/2025 6:58 AM EDT Images from the original note were not included. PROGRESS NOTE PATIENT NAME: Eneida [facility] DATE: 03/31/2025 Hospital Day: # 9 [...] events overnight. 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 Dermabond intact. LAB: CBC: Recent Labs 03/29/2562303/30/25 0626 03/31/25 0529 WBC 8.6 10.3 7.8 [...] confirmed. Dispo planning S. Abad Chino MD, [facility] Acute Care Surgery Attending [facility] Specialists * Marvel Ng MD - 03/30/2025 11:06 AM EDT Images from the original note were not included. [facility] Office: [phone] Marquez Scott DO, Garth Casanova DO, Kenny [...] Bustillos MD, Berry Holder MD, Ruth Causey, [employer], aZ Del Valle, [employer], Jarred Sandoval, [employer], Declan, [facility], Gabby Epstein, [employer], Carmen Pack, [employer], Amber Del Toro, [employer], Lula Alvarado, [employer], Julia Ortiz, PA-C, Linda Guidry, [employer], Lillie Gipson, [employer], Magaly Lind, [employer], Ni Rodriguez, [employer], Shaun Cabrales, PA-C, Danica Hernandez, PA-C, Shivani Díaz, [employer], Lily Esteves, [employer], Tracy Richardson, [employer], Carmela Wills, [facility], Sheila Smith, [employer], Kate Macias, [employer], Jeanie Fox, [employer] [facility] IN-PATIENT SERVICE [facility] Progress Note 03/30/2025 11:06 AM Name: Eneida Mejia Acct: [id number] Room: [address] [place] [address] Day: 8 Admit Date: 03/22/2025 7:27 PM PCP: Sudhir Gonzalez MD Code Status: Full Code Subjective: C/C: N/V/Abd pain/diarrhea Interval History Status: Not changed S/p ROBOTIC LAPAROSCOPIC CHOLECYSTECTOMY on 03/29 Still complaining of abdominal pain today 12/20, denies any other complaint Lab vital sign advisor consultant note reviewed Discussed with RN at bedside Brief History: 49-year-old female with history of breast cancer status post left lumpectomy status post tamoxifen treatment, nicotine dependence and alcohol abuse presented as a transfer from [facility] for management of acute cholecystitis and [...] ml Labs: Hematology: Recent Labs 03/27/25 1126 03/29/2562303/30/25625 WBC 12.0* 8.6 10.3 RBC 2.54* 2.44* 2.51* HGB 9.7* 9.1* 9.3* HCT 30.9* 29.6* 30.0* MCV 121.7* 121.3* 119.5* MCH 38.2* 37.3* 37.1* MCHC 31.4 30.7 31.0 RDW 13.7 13.3 13.2 PLT 293 253 275 MPV 11.1 11.3 11.8 Chemistry: Recent Labs 03/27/25 1455 03/29/2562303/30/25625 NA 132* 133* 135* K 4.1 4.2 [...] , PHART , PH , POCPCO2 , SOG1CTT , PCO2 , POCPO2 , PO2ART , PO2 , POCHCO3 , OVC9RXH , HCO3 , NBEA , PBEA , BEART , BE , THGBART , THB , SNR1YZQ , DIEB9EMM , S0TEFPIX , O2SAT , FIO2 No results found [...] PROGRESS NOTE PATIENT NAME: Eneida Engelgo DATE: 03/30/2025 Hospital Day: # 8 DIAGNOSIS [...] were reviewed and confirmed. Emmy Chino MD, [facility] Acute Care Surgery Attending [facility] Specialists * Mary Roth, RD - 03/29/2025 [...] Pt preference. Pt currently with hamburger and guinean fries on her lunch tray, and states she has been working on this for about an hour, though it appears very little has been consumed. This functional tester typewriters did encourage low fat meals/snacks and verbally [...] MD - 03/29/2025 12:44 PM EDT [facility] Progress Note Eneida Mejia is a [...] , TIBC , IRON , FERRITIN , GONOTCQZ57 , FOLATE , OCCULTBLD in the last [...] flow across the ampulla. Therefore a 10 Bruneian by 7 cm plastic biliary stent was [...] to ensure the accuracy of this automated biological plant operator, some errors in biological plant operator may have occurred. * Marvel Ng MD - 03/29/2025 11:07 AM EDT Images from the original note were not included. [facility] Office: [phone] Marquez Scott DO, Garth Casanova DO, Kenny [...] Bustillos MD, Berry Holder MD, Ruth Causey, [employer], Za Del Valle, [employer], Jarred Sandoval, [facility], Declan [facility], Gabby Epstein, [employer], Carmen Pack, [employer], Amber Del Toro, [employer], Lula Alvarado, [employer], Julia Ortiz, PA-C, Linda Guidry, [employer] [facility], Lillie Gipson, [employer], Magaly Lind, [employer], Ni Rodriguez, [employer], Shaun Cabrales, PA-C, Danica Hernandez, PA-C, Shivani Díaz, [employer], Lily Esteves, [facility], Tracy Richardson, [facility], Carmela Wills, [facility], Sheila Smith, [facility], Kate Macias, [facility], Jeanie Fox, [facility] IN-PATIENT SERVICE [facility] Progress Note 03/29/2025 11:08 AM Name: Eneida Mejia Acct: [id number] Room: [facility] IP Day: 7 Admit Date: 03/22/2025 7:27 PM PCP: Sudhir Gonzalez MD Code Status: Full Code Subjective: C/C: N/V/Abd pain/diarrhea Interval History Status: Not changed S/p ROBOTIC LAPAROSCOPIC CHOLECYSTECTOMY on 03/29 She was seen after the procedure eating her food, no report pain 12/20 in severity denies any other complaint Lab vital sign advisor consultant note reviewed Discussed with RN at bedside Brief History: 49-year-old female with history of breast cancer status post left lumpectomy status post tamoxifen treatment, nicotine dependence and alcohol abuse presented as a transfer from [facility] for management of acute cholecystitis and [...] , PHART , PH , POCPCO2 , URK8UWA , PCO2 , POCPO2 , PO2ART , PO2 , POCHCO3 , HTW0LKX , HCO3 , NBEA , PBEA , BEART , BE , THGBART , THB , GKB2NBF , NSFH0HPU , K3XXDRLT , O2SAT , FIO2 No results found [...] Andujar MD - 03/28/2025 3:46 PM EDT [facility] Gastroenterology Progress Note Eneida Mejia [...] Severe loss of signal intensity seen on mpk-yi-uuunu imaging consistent with severe hepatic steatosis. Mild [...] 293 ANEMIA STUDIES: Recent Labs 03/25/25 1559 KHSLLXMJ30 >2000* FOLATE 25.5* BMP: Recent Labs 03/26/25 [...] flow across the ampulla. Therefore a 10 Bruneian by 7 cm plastic biliary stent was [...] contact me with any questions or concerns. [facility] Gastroenterology Reba Gonzalez PA-C [phone] 03/28/2025 3:46 PM Attending Physician Attestation: I [...] examination and review of system. * Mini Tracy Iris, DO - 03/28/2025 1:18 PM EDT General Surgery [...] user, and alcohol drinker who presented from [facility] on 03/22/2025 for elevated bilirubin and CT demonstrating CBD dilation and gallbladder wall thickening concerning for acute cholecystitis. [facility] [place] with generalized abdominal pain, several weeks [...] Severe loss of signal intensity seen on yly-uq-cengg imaging consistent with severe hepatic steatosis. Mild [...] from the original note were not included. [facility] Office: [phone] Marquez Scott DO, Garth Casanova DO, Kenny Vicente DO, Edu Akers DO, Ubaldo Nava MD, Yasmeen Day MD, Darian Covarrubias MD, Pauly Keane MD, Terence Marte MD, Cordelia Medina MD, Sana Guaman MD, Tania Forman DO, Luigi Scott DO, Kaylie Briones MD, Ariel Glez DO, Emily Miller MD, Catina Melissa MD, Josias Corona MD, Jamil Louie MD, Carlyle Bledsoe MD,Estefany Badillo MD, Marvel gN MD, Elvis Malave MD, Natalie Monroe MD, Jarred Dias DO,Yahaira Ma MD, Connor Neal DO, Kingsley James MD, Francisco Licona MD, Tania Bustillos MD, Manuel Bustillos MD, Berry Holder MD, Ruth Causey, [employer] [facility], Za Del Valle, [employer], Jarred Sandoval, [employer], Declan DNP, Gabby Epstein, [employer], Carmen Pack, [employer], Amber Del Toro, [employer], Lula Alvarado, [employer], Julia Ortiz, PA-C, Linda Guidry, [employer], Lillie Gipson, [employer], Magaly Lind, [employer], Ni Rodriguez, [employer], Shaun Cabrales, PA-C, Danica Hernandez, PA-C, Shivani Díaz, [employer], Lily Esteves, [employer], Tracy Richardson, [employer], Carmela Wills, [facility], Sheila Smith, [employer], Kate Macias, [employer] [facility], Jeanie Fox, [employer] [facility] IN-PATIENT SERVICE [facility] Progress Note 03/28/2025 10:52 AM Name: Eneida Mejia Acct: [id number] Room: [facility]/0503[facility] Day: 6 Admit Date: 03/22/2025 7:27 PM PCP: Sudhir Gonzalez MD Code Status: Full Code Subjective: C/C: N/V/Abd pain/diarrhea Interval History Status: Not changed Patient was seen and examined, she was seen eating her breakfast, continues to report abdominal pain however she reports her pain is better compared with yesterday Lab vital sign advisor consultant note reviewed Discussed with RN at bedside Brief History: 49-year-old female with history of breast cancer status post left lumpectomy status post tamoxifen treatment, nicotine dependence and alcohol abuse presented as a transfer from [facility] for management of acute cholecystitis and [...] with KCl 20 mEq 100 mL/hr at 10/16/25 0224 sodium chloride PRN Meds: bisacodyl, oxyCODONE-acetaminophen, [...] , PHART , PH , POCPCO2 , ZSS6KEK , PCO2 , POCPO2 , PO2ART , PO2 , POCHCO3 , ZGT9YQZ , HCO3 , NBEA , PBEA , BEART , BE , THGBART , THB , JIP4LOS , YXXB4ILN , L1VUQBLM , O2SAT , FIO2 No results found [...] Andujar MD - 03/27/2025 1:39 PM EDT [facility] Gastroenterology Progress Note Eneida Mejia is [...] Severe loss of signal intensity seen on fgh-dk-pcuwz imaging consistent with severe hepatic steatosis. Mild [...] the possibility of cholecystitis. CBC: Recent Labs 03/25/2551 03/26/25 0646 03/27/25 1126 WBC 11.8* 10.1 12.0* HGB 8.1* 8.4* 9.7* MCV 119.2* 120.0* 121.7* RDW 14.2 14.0 13.7 PLT 234 239 293 ANEMIA STUDIES: Recent Labs 03/25/25 0651 03/25/25 1559 TIBC 105* -- FERRITIN 328* -- BETZFKSJ80 -- >2000* FOLATE -- 25.5* BMP: Recent Labs 03/25/2551 03/25/25 2016 03/26/25 0000 03/26/25 0646 NA 135* 129* 127* 133* K 2.9* 3.6* 3.5* 3.6* CL 103 99 98 105 CO2 21 19* 23 21 BUN <2* <2* <2* <2* CREATININE 0.3* 0.3* 0.3* 0.3* GLUCOSE 71* 110* 113* 94 CALCIUM 6.7* 6.9* 7.0* 7.1* MG 1.5* -- -- -- LFTS: Recent Labs 03/25/2551 03/26/25 0000 03/26/2546 ALKPHOS 194* 219* 206* ALT [...] flow across the ampulla. Therefore a 10 Bruneian by 7 cm plastic biliary stent was [...] contact me with any questions or concerns. [facility] Gastroenterology Reba Gonzalez PA-C [phone] 03/27/2025 1:39 PM Attending Physician Attestation: I [...] Progress Note PATIENT: ENEIDA MEJIA CSN #: [id number] : 1975 ADMIT DATE: 03/22/2025 7:27 PM [...] alcohol abuse presented as a transfer from [facility] for management of acute cholecystitis and [...] from the original note were not included. [facility] Office: [phone] Marquez Scott DO, Garth Casanova DO, Kenny [...] Bustillos MD, Berry Holder MD, Ruth Causey, [employer], Za Del Valle, [facility], Jarred Sandoval, [facility], Declan, [facility], Gabby Epstein, [facility], Carmen Pack, [employer], Amber Del Toro, [employer], Lula Alvarado, [employer], Julia Otriz, PA-C, Linda Guidry, [facility], Lillie Gipson, [facility], Magaly Lind, [facility], Ni Rodriguez, [facility], Shaun Cabrales, PA-C, Danica Hernandez, PA-C, Shivani Díaz, [facility], Lily Esteves, [facility], Tracy Richardson, [facility], Carmela Wills, [facility], Sheila Smith, [facility], Kate Macias, [facility], Jeanie Fox, [facility] IN-PATIENT SERVICE [facility] Progress Note 03/27/2025 11:16 AM Name: Eneida Mejia Acct: [id number] Room: 0503/0503-01 Day: 5 Admit Date: 03/22/2025 7:27 PM PCP: Sudhir Gonzalez MD Code Status: Full Code Subjective: C/C: N/V/Abd pain/diarrhea Interval History Status: Not changed Patient was seen and examined, she was seen eating her breakfast however she continued to report abdominal pain Status post ERCP done yesterday 03-26 Lab vital sign advisor consultant note reviewed Discussed with RN at bedside Brief History: 49-year-old female with history of breast cancer status post left lumpectomy status post tamoxifen treatment, nicotine dependence and alcohol abuse presented as a transfer from [facility] for management of acute cholecystitis and [...] Ht 1.702 m (5' 7.01 ) Wt 54.1kg (119 lb 4.3 oz) SpO2 98% BMI [...] , PHART , PH , POCPCO2 , AYK4YNE , PCO2 , POCPO2 , PO2ART , PO2 , POCHCO3 , FHC2GQZ , HCO3 , NBEA , PBEA , BEART , BE , THGBART , THB , LWD7ZIB , LTLI1BAQ , E7XTUQAM , O2SAT , FIO2 No results found [...] Sanchez RN - 03/26/2025 4:00 PM EDT Thermostat Mechanic unable to complete 4pm assessment and vitals due to patient being off unit for ERCP. * Marvel Ng MD - 03/26/2025 12:05 PM EDT Images from the original note were not included. [facility]: [phone] Marquez Scott DO, Garth Casanova DO, Kenny Vicente DO, Edu Akers DO, Ubaldo Nava MD, Yasmeen Day MD, Darian Covarrubias MD, Pauly Keane MD, Terence Marte MD, Cordelia Medina MD, Sana Guaman MD, Tania Forman DO, Luigi Scott DO, Kaylie Briones MD, Ariel Glez DO, Emily Miller MD, Catina Melissa MD, Josias Corona MD, Jamil Louie MD, Carlyle Bledsoe MD,Estefany Badillo MD, aMrvel Ng MD, Elvis Malave MD, Natalie Monroe MD, Jarred Dias DO,Yahaira Ma MD, Connor Neal DO, Kingsley James MD, Francisco Licona MD, Tania Bustillos MD, Manuel Bustillos MD, Berry Holder MD, Ruth Causey, [employer], Za Del Valle, [employer], Jarred Sandoval, [employer], Declan, DNP, Gabby Epstein, [employer], Carmen Pack, [employer], Amber Del Toro, [employer], Lula Alvarado, [employer], Julia Ortiz, PA-C, Linda Guidry, [employer], Lillie Gipson, [employer], Magaly Lind, [employer], Ni Rodriguez, [employer], Shaun Cabrales, PA-C, Danica Hernandez PA-C, Shivani Díza, [employer], Lily Esteves, [employer], Tracy Richardson, [employer], Carmela Wills, [facility], Sheila Smith, [employer], Kate Macias, [employer], Jeanie Fox, [employer] [facility] IN-PATIENT SERVICE [facility] Progress Note 03/26/2025 12:06 PM Name: Eneida Mejia Acct: [id number] Room: [facility]/0503-[facility] Day: 4 Admit Date: 03/22/2025 7:27 PM PCP: Sudhir Gonzalez MD Code Status: Full Code Subjective: C/C: N/V/Abd pain/diarrhea Interval History Status: Not changed Patient was seen and examined, at time of my evaluation patient continues to report nausea, abdominal pain mainly in epigastric area Awaiting final GI input Lab vital sign advisor consultant note reviewed Discussed with RN at bedside Brief History: 49-year-old female with history of breast cancer status post left lumpectomy status post tamoxifen treatment, nicotine dependence and alcohol abuse presented as a transfer from [facility] for management of acute cholecystitis and [...] , PHART , PH , POCPCO2 , ZME4CRE , PCO2 , POCPO2 , PO2ART , PO2 , POCHCO3 , QAQ9OML , HCO3 , NBEA , PBEA , BEART , BE , THGBART , THB , AML5ZXO , DADU9LIK , J7BKNKRL , O2SAT , FIO2 No results found [...] Marvel Ng MD 03/26/2025 12:06 PM * GonzalezMariselan, RD - 03/26/2025 11:47 AM EDT Comprehensive [...] mass loss Fluid Accumulation: No fluid accumulation [employer] Specialist Strength: Not Performed Nutrition Assessment: Pt currently [...] 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 Pt is asing what she should be [...] Measures: Height: 170.2 cm (5' 7.01 ) Armstrong Body Weight (IBW): 135 lbs (61 kg) [...] from the original note were not included. [facility] Office: [phone] Marquez Scott DO, Garth Casanova DO, Kenny Vicente DO, Edu Akers DO, Ubaldo Nava MD, Yasmeen Day MD, Darian Covarrubias MD, Pauly Keane MD, Terence Marte MD, Cordelia Medina MD, Sana Guaman MD, Tanai Forman DO, Luigi Scott DO, Kaylie Briones MD, Ariel Glez DO, Emily Miller MD, Catina Melissa MD, Josias Corona MD, Jamil Louei MD, Carlyle Bledsoe MD,Estefany Badillo MD, Marvel Ng MD, Elvis Malave MD, Natalie Monroe MD, Jarred Dias DO,Yahaira Ma MD, Connor Neal DO, Kingsley James MD, Francisco Licona MD, Tania Bustillos MD, Manuel Bustillos MD, Berry Holder MD, Ruth Causey, [employer], Za Del Valle, [employer], Jarred Sandoval, [employer], Declan, [facility], Gabby Epstein, [employer], Carmen Pack, [employer], Amber Del Toro, [employer], Lula Alvarado, [employer], Julia Ortiz, PA-C, Linda Guidry, [employer] [facility], Lillie Gipson, [employer], Magaly Lind, [employer], Ni Rodriguez, [employer], Shaun Cabrales, PA-C, Danica Hernandez, PA-C, Shivani Díaz, [employer], Lily Esteves, [employer], Tracy Richardson, [employer], Carmela Wills, [facility], Sheila Smith, [employer], Kate Macias, [employer], Jeanie Fox, [employer] [facility] IN-PATIENT SERVICE [facility] Progress Note 03/25/2025 12:58 PM Name: Eneida Mejia Acct: [id number] Room: [address] [place] [address] Day: 3 Admit Date: 03/22/2025 7:27 PM [...] alcohol abuse presented as a transfer from [facility] for management of acute cholecystitis and [...] 0520 03/23/25 1424 03/24/25 0048 03/24/25 0630 03/25/25 0651 NA 131* 131* [...] -- Recent Labs 03/22/25 2134 03/23/25 0520 03/23/25 0520 03/24/258 03/24/25 0630 03/25/25 0651 TSH -- [...] , PHART , PH , POCPCO2 , FPQ2WKP , PCO2 , POCPO2 , PO2ART , PO2 , POCHCO3 , TCH6RSZ , HCO3 , NBEA , PBEA , BEART , BE , THGBART , THB , ROA7YDF , UYQC0SGL , Y0OPIQNG , O2SAT , FIO2 No results found [...] AM EDT Critical Lab Result Potassium 2.9. Thermostat Mechanic notified Dr. Galeana. Potassium Chloride 10mEq/100mL IVPB telephone order per Dr. Galeana. * Luigi Laurent RD - 03/24/2025 4:14 PM EDT Comprehensive Nutrition Assessment Type and Reason for Visit: Initial, Positive nutrition screen Nutrition Recommendations/Plan: Advance diet order as medically appropriate. Clear liquid ONS TID. Malnutrition Assessment: Malnutrition Status: Insufficient data (03/24/25 6038) Context: Acute Illness Nutrition Assessment: Positive RNC. [...] Measures: Height: 170.2 cm (5' 7.01 ) Armstrong Body Weight (IBW): 135 lbs (61 kg) [...] soon to determine Luigi Laurent RD Contact: [phone] * Dimas Andujar MD - 03/24/2025 1:39 PM EDT [facility] Gastroenterology Progress Note Eneida Mejia is [...] Severe loss of signal intensity seen on xao-jy-hdfmz imaging consistent with severe hepatic steatosis. Mild [...] the possibility of cholecystitis. CBC: Recent Labs 03/23/2551903/24/25 0630 WBC 13.8* 13.5* HGB 7.8* 8.9* MCV 116.4* 119.6* RDW 14.7* 14.6* PLT 275 293 ANEMIA STUDIES: No results for input(s): TIBC , FERRITIN , SZZZDFMA41 , FOLATE , OCCULTBLD in the last 72 hours. Invalid input(s): LABIRON BMP: Recent Labs 03/23/25 0503/23/25 1424 03/24/25 0048 03/24/25 0630 NA 131* 131* 129* 134* K 2.8* 3.5* 3.6* 3.7 CL 93* 95* 97* 100 CO2 27 25 22 24 BUN 8 5* 3* 2* CREATININE 0.4* 0.3* 0.3* 0.4* GLUCOSE 78 77 87 99 CALCIUM 8.2* 7.6* 7.3* 7.5* MG 1.2* 1.4* -- -- LFTS: Recent Labs 03/23/25 0520 03/24/25 0048 03/24/25 0630 ALKPHOS 227* 210* 233* ALT [...] contact me with any questions or concerns. [facility] Gastroenterology Reba Gonzalez PA-C [phone] 03/24/2025 1:42 PM Attending Physician Attestation: I [...] from the original note were not included. [facility] Office: [phone] Marquez Scott DO, Garth Casanova DO, Kenny [...] Bustillos MD, Berry Holder MD, Ruth Causey, [employer]ARY SERVICES DEAN, Za Del Valle, LIBRARY SERVICES DEAN, Jarred Sandoval CNP, TAI Manriquez, Gabby Epstein, LIBRARY SERVICES DEAN, Carmen Pack, LIBRARY SERVICES DEAN, Amber Del Toro, LIBRARY SERVICES DEAN, Lula Alvarado, LIBRARY SERVICES DEAN, Julia Ortiz PAMirellaC, Linda Guidry, LIBRARY SERVICES DEAN, Lillie Gipson, LIBRARY SERVICES DEAN, Magaly Lind, LIBRARY SERVICES DEAN, Ni Rodriguez, LIBRARY SERVICES DEAN, Shaun Cabrales PAMirellaC, KASH LynchC, Shivani Díaz, LIBRARY SERVICES DEAN, Lily Esteves, LIBRARY SERVICES DEAN, Tracy Richardson, LIBRARY SERVICES DEAN, Carmela Wills, DBAS, Sheila Smith, LIBRARY SERVICES DEAN, Kate Macias, LIBRARY SERVICES DEAN, Jeanie Fox, LIBRARY SERVICES DEAN [facility] IN-PATIENT SERVICE [facility] Progress Note 03/24/2025 7:56 AM Name: Eneida Mejia Acct: [id number] Room: [facility]0503-01 Day: 2 Admit Date: 03/22/2025 7:27 PM [...] alcohol abuse presented as a transfer from [facility] for management of acute cholecystitis and [...] , PHART , PH , POCPCO2 , CWM8BEH , PCO2 , POCPO2 , PO2ART , PO2 , POCHCO3 , ANL7RVV , HCO3 , NBEA , PBEA , BEART , BE , THGBART , THB , LJI1QRJ , BWNE2FCR , S3VJHUTT , O2SAT , FIO2 No results found [...] hypokalemia, hypomagnesemia, hyponatremia-replace electrolytes as needed Chronic advbwjf-tjwmrb-vl stool studies. Alcohol use disorder-thiamine folate multivitamin. [...] from the original note were not included. [facility] Office: [phone] Marquez Scott DO, Garth Casanova DO, Kenny [...] MD,Estefany Badillo MD, Marvel Ng MD, Elvis aMlave MD, Natalie Monroe MD, Jarred Dias DO,Yahaira Ma MD, Connor Neal DO, Kingsley James MD, Francisco Licona MD, Tania Bustillos MD, Manuel Bustillos MD, Berry Holder MD, Ruth Causey CNP, Za Del Valle CNP, Jarred Sandoval CNP, TAI Manriquez, Gabby Epstein, [employer]RARY SERVICES DEAN, Carmen Pack, LIBRARY SERVICES DEAN, Amber Del Toro, LIBRARY SERVICES DEAN, Lula Alvarado, LIBRARY SERVICES DEAN, Julia Ortiz PAMirellaC, Linda Guidry LIB[employer]ARY SERVICES DEAN, Lillie Gipson LIBRARY SERVICES DEAN, Magaly Lind, LIBRARY SERVICES DEAN, Ni Rodriguez, LIBRARY SERVICES DEAN, Shaun Cabrales PA-C, Danica Hernandez PAMirellaC, Shivani Díaz, LIBRARY SERVICES DEAN, Lily Esteves, LIBRARY SERVICES DEAN, Tracy Richardson, LIBRARY SERVICES DEAN, Carmela Wills, DBAS, Sheila Smith, LIBRARY SERVICES DEAN, Kate Macias, LIBRARY SERVICES DEAN, Jeanie Fox, LIBRARY SERVICES DEAN [facility] IN-PATIENT SERVICE [facility] Progress Note 03/23/2025 8:12 AM Name: Eneida Mejia Acct: [id number] Room: [facility]3/[facility]3-01 Day: 1 Admit Date: 03/22/2025 7:27 PM [...] alcohol abuse presented as a transfer from [facility] for management of acute cholecystitis and [...] , PHART , PH , POCPCO2 , HEC4HRP , PCO2 , POCPO2 , PO2ART , PO2 , POCHCO3 , MZK1RZA , HCO3 , NBEA , PBEA , BEART , BE , THGBART , THB , TMD6JRD , EBXH4PGE , T3IYYYAX , O2SAT , FIO2 No results found [...] hypokalemia, hypomagnesemia, hyponatremia-replace electrolytes as needed Chronic zpnbrlw-ioagly-vs stool studies. Alcohol use disorder-thiamine folate multivitamin. [...] PANEL W/ REFLEX TO MG FOR LOW OYednsce45/19/2025 5:29 AM EDT CBC WITH AUTO MADALJSOADJLBoocsly43/19/2025 5:29 AM EDT HEPATIC FUNCTION NNYPSLaexqzw35/19/2025 5:29 AM EDT XYRWRTRCZMWKDgiwxjv10/18/2025 6:26 AM EDT BASIC METABOLIC PANEL W/ REFLEX TO MG FOR LOW BDggbahb61/18/2025 6:26 AM EDT GZAKdsirtt84/18/2025 6:26 AM EDT XWMQYSRNEXkofnwa08/18/2025 6:26 AM EDT HEPATIC FUNCTION HQDRCJdztejo48/18/2025 6:26 AM EDT [place] LAPAROSCOPY SURG GDTXDMNMQWWSAHB60/17/2025 9:57 AM EDT Acute cholecystitis Special Needs MINI TRACY-RESIDENT. BASIC METABOLIC PANEL W/ REFLEX TO MG FOR LOW HAtasqmd20/17/2025 6:24 AM EDT NLHBmjqwoi75/17/2025 6:24 AM EDT HEPATIC FUNCTION TDGAUMhruroh82/17/2025 6:24 AM EDT SURGICAL PATHOLOGY TPSHBBJdlrwfl10/17/2025 12:00 AM EDT HEPATIC FUNCTION LWTZBXdwqkrw49/16/2025 4:26 AM EDT XR ABDOMEN (KUB) (SINGLE AP VIEW)Ksuojez2403/27/2025 3:36 PM EDT PREVIOUS ESIGPQOOJJWP57/15/2025 2:55 PM EDTCOMPREHENSIVE METABOLIC PANEL W/ REFLEX TO MG FOR LOW KSTAT1 2:55 PM EDT ECHO (TTE) WZMVVKPDRumxbtv79/15/2025 11:55 AM EDT Hypotension, unspecified hypotension type FBTKlfwadl67/15/2025 11:26 AM EDT US GI ENDOSCOPIC S&YMvnojho03/14/2025 11:44 PM EDT FLUORO FOR SURGICAL HMMGHJCLBJVggozod94/14/2025 6:17 PM EDT CYTOLOGY, NON-CCRRkchyon16/14/2025 4:28 PM EDT Common bile duct stricture (HCC) SURGICAL PATHOLOGY QIIWSHTexmuwp01/14/2025 9:22 AM EDT COMPREHENSIVE METABOLIC PANEL W/ REFLEX TO MG FOR LOW AVgjwevr57/14/2025 6:46 AM EDT CBC WITH AUTO FUVUXZTZRENCBhnweeh62/14/2025 6:46 AM EDT SURGICAL PATHOLOGY QQJXVYHudsstw06/14/2025 12:00 AM EDT COMPREHENSIVE METABOLIC YCMOBNcvrz98/14/2025 12:00 AM EDT BASIC METABOLIC PANEL W/ REFLEX TO MG FOR LOW AMrecvnb40/13/2025 8:16 PM EDT PREVIOUS NFKJKBKUYxynskr76/13/2025 3:59 PM EDTVITAMIN B12 & FOLATERoutine 03/25/2025 3:59 PM EDT US ORGAN MHZFFABXRSQFBocktem30/13/2025 12:16 PM EDT COMPREHENSIVE METABOLIC PANEL W/ REFLEX TO MG FOR LOW WYvmblrv52/13/2025 6:51 AM EDT CBC WITH AUTO PXSJBGNLHOJNJkskvvf44/13/2025 6:51 AM EDT IRON AND ICVPTbskkey79/13/2025 6:51 AM EDT ZSUVSYIWEThsketw75/13/2025 6:51 AM EDT RMDLVHBKHudpgtl16/13/2025 6:51 AM EDT SURGICAL PATHOLOGY VQIFMSMbmzriz61/13/2025 12:00 AM EDT MRI ABDOMEN W WO CONTRAST CLIVBqzdaam87/12/2025 9:32 AM EDT COMPREHENSIVE METABOLIC PANEL W/ REFLEX TO MG FOR LOW SGzaiqjd38/12/2025 6:30 AM EDT CBC WITH AUTO KHJVFJXAILCMUxjfimd21/12/2025 6:30 AM EDT PROTIME-AWGDwaqrqp41/12/2025 6:30 AM EDT COMPREHENSIVE METABOLIC RMTRDZiexj03/12/2025 12:48 AM EDT GASTROINTESTINAL PANEL, MOLECULARSunquest Label Print03/23/2025 6:24 PM EDT C DIFF TOXIN/ANTIGENSunquest Label Print03/23/2025 6:24 PM EDT BASIC METABOLIC PANEL W/ REFLEX TO MG FOR LOW KSTAT1 2:24 PM EDT AMJXKINTSFfpmlds91/11/2025 2:24 PM EDT LIPID, AFDJLIXKfhrjfv82/11/2025 5:20 AM EDT TSH REFLEX TO IT0Xlzfmgj96/11/2025 5:20 AM EDT COMPREHENSIVE METABOLIC PANEL W/ REFLEX TO MG FOR LOW FFdlkria22/11/2025 5:20 AM EDT CBC WITH AUTO NOSWTAXCGMWAVqzvuuw30/11/2025 5:20 AM EDT PROTIME-QZBTitgkwi30/11/2025 5:20 AM EDT UTZHGZBPIVSggxnsk73/11/2025 5:20 AM EDT ZFNSKQURLVoejoec05/11/2025 5:20 AM EDT UPOEIRXhalrvt61/10/2025 9:34 PM EDT documented in this encounter Results * (ABNORMAL) Basic Metabolic Panel w/ Reflex to MG (03/31/2025 5:29 AM EDT) ComponentValueRef RangeTest MethodAnalysis TimePerformed AtPathologist EvskcdlhcWrbvpr827662 - 145 mmol/L1 5:29 AM EDTMERCY LAB[facility]ATORIES Potassium4.23.7 - 5.3 mmol/L1 5:29 AM EDTMERCY LABORATORIESComment: Specimen hemolysis has exceeded the interference as defined by Francesco. Value may be falsely increased. Suggest recollection if clinically indicated. Eicpgwyr03542 - 107 mmol/L1 5:29 AM EDTMERCY XPAWFTYIXYYQXV92265 - 31 mmol/L1 5:29 AM EDTMERCY LABORATORIESAnion Gap6(L)9 - 16 mmol/L 03/31/2025 5:29 AM EDTMERCY OTVUTMDKXYPUJzwqpxm6710 - 99 mg/dL03/31/2025 5:29 AM EDTMERCY LABORATORIESBUN3(L)6 - 20 mg/dL03/31/2025 5:29 AM EDTMERCY LABORATORIESCreatinine0.4(L)0.6 - 0.9 mg/dL03/31/2025 5:29 AM EDTMERCY LABORATORIESEst, Glom Filt Rate>90>60 mL/min/1.30r22403/31/2025 5:29 AM EDTMERCY LABORATORIESComment: ? These results [...] Method / VolumeCollection TimeReceived TimeBloodBLOOD SPECIMEN / Qjoatww5503/31/2025 5:29 AM EDT1 5:57 AM EDT Narrative Authorizing ProviderResult TypeResult StatusAndisaura Tracy DOCHEMISTRY ORDERABLESFinal ResultPerforming OrganizationAddressCity/State/ZIP CodePhone Number [facility] [address] [place] [address], [facility] [phone] * (ABNORMAL) CBC with Auto Differential (03/31/2025 5:29 AM EDT)ComponentValue Ref RangeTest MethodAnalysis TimePerformed AtPathologist SignatureWBC7.83.5 - 11.3 k/uL10/ 5:29 AM EDTMERCY LABORATORIESRBC2.58(L)3.95 - 5.11 m/uL 03/31/2025 5:29 AM EDTMERCY LABORATORIESHemoglobin9.6(L)11.9 - 15.1 g/dL 03/31/2025 5:29 AM EDTMERCY RAFPFBTBSNTICrvrainwim99.5(L)36.3 - 47.1 % 03/31/2025 5:29 AM EDTMERCY LBABDWUMVBVWUDN148.2(H)82.6 - 102.9 fL03/31/2025 5:29 AM EDTMERCY UZGGWTXDHWSTPJR12.2(H)25.2 - 33.5 pg03/31/2025 5:29 AM EDT [employer] AOSPZLHJVWIRGVJF14.528.4 - 34.8 g/dL03/31/2025 5:29 AM EDTMERCY ITPHTDBNIYVYTYR51.211.8 - 14.4 %03/31/2025 5:29 AM EDTMERCY LAB[facility]ATORIES Jxmhaiuas119231 - 453 k/uL03/31/2025 5:29 AM EDTMERCY YTQCIJRSHJKPHVU09.48.1 - 13.5 fL03/31/2025 5:29 AM EDTMERCY LABORATORIESNRBC Automated0.00.0 per 100 WBC03/31/2025 5:29 AM EDTMERCY LABORATORIESImmature Granulocytes %00 % 03/31/2025 5:29 AM EDTMERCY LABORATORIESNeutrophils %73(H)36 - 65 %03/31/2025 5:29 AM EDTMERCY LABORATORIESLymphocytes %16(L)24 - 43 %03/31/2025 5:29 AM EDT [facility] LABORATORIESMonocytes %83 - 12 %03/31/2025 5:29 AM [...] - 0.20 k/uL03/31/2025 5:29 AM EDTMERCY LABORATORIESMorphologyMACROCYTOSIS QYOBWCZ5903/31/2025 5:29 AM EDTMERCY LABORATORIESSpecimen (Source)Anatomical Location / LateralityCollection Method / VolumeCollection TimeReceived TimeBloodBLOOD SPECIMEN / Nbenpfg9203/31/2025 5:29 AM EDT1 5:57 AM EDT Narrative Authorizing ProviderResult TypeResult StatusAndisaura Simmons [facility] DOHEMATOLOGY ORDERABLESFinal ResultPerforming OrganizationAddressCity/State/ZIP CodePhone Number [place] [id number] [address] [phone] * (ABNORMAL) Hepatic Function Panel (03/31/2025 5:29 AM EDT)ComponentValueRef RangeTest MethodAnalysis TimePerformed AtPathologist SignatureAlbumin2.6(L)3.5 - 5.2 g/dL03/31/2025 5:29 AM EDTMERCY LABORATORIESAlkaline Amyavqtqybp977(H)35 - 104 U/L1 5:29 AM EDTMERCY MLNCOFDSINMFSFP8718 - 35 U/L1 5:29 AM EDTMERCY MJECBSGOTRXGZTK46(H)10 - 35 U/L1 5:29 AM EDTMERCY LABORATORIESComment: Specimen hemolysis has exceeded the interference as defined by Francesco. Value may be falsely increased. Suggest recollection if clinically indicated. Total Bilirubin3.1(H)0.0 - 1.2 mg/dL03/31/2025 5:29 AM EDTMERCY LABORATORIES Bilirubin, Direct2.3(H)0.0 - 0.2 mg/dL03/31/2025 5:29 AM EDTM[facility]CY [facility]ORATORIES Bilirubin, Indirect0.80.0 - 1.0 mg/dL03/31/2025 5:29 AM EDTMERCY LABORATOR[facility] Total Protein5.5(L)6.6 - 8.7 g/dL03/31/2025 5:29 AM EDTMERCY [facility]ATOR[facility] Globulin2.9g/dL10 5:29 AM EDTMERCY LABORATORIESAlbumin/Globulin Ratio0.9 (L)1.0 - 2. 5:29 AM EDTMERCY LABORATORIESSpecimen (Source)Anatomical Location / LateralityCollection Method / VolumeCollection TimeReceived TimeBlood BLOOD SPECIMEN / Ouvzcmh0703/31/2025 5:29 AM EDT1 5:57 AM EDT Narrative Authorizing ProviderResult TypeResult StatusAustin D Monae DOCHEMISTRY ORDERABLESFinal ResultPerforming OrganizationAddressCity/State/ZIP CodePhone Number zePASS [address] [place] [address], [facility] [phone] * (ABNORMAL) Magnesium (03/30/2025 6:26 AM EDT)ComponentValueRef RangeTest MethodAnalysis TimePerformed AtPathologist SignatureMagnesium1.3(L)1.6 - 2.6 mg/dL03/30/2025 6:26 AM EDTMERCY LABORATORIESSpecimen (Source)Anatomical Location / LateralityCollection Method / VolumeCollection TimeReceived Time 03/30/2025 6:26 AM EDT1 8:30 AM EDT Narrative Authorizing ProviderResult TypeResult StatusAustin D Monae DOCHEMISTRY ORDERABLESFinal ResultPerforming OrganizationAddressCity/State/ZIP CodePhone Number zePASS [address] [place] [address], [facility] [phone] * (ABNORMAL) Differential (03/30/2025 6:26 AM EDT)ComponentValueRef RangeTest MethodAnalysis TimePerformed AtPathologist SignatureRBC MorphologyMACROCYTOSIS HAWOACE0303/30/2025 6:26 AM EDTMERCY LABORATORIESImmature Granulocytes %1(H)0 % [...] Absolute7.531.50 - 8.10 k/uL03/30/2025 6:26 AM EDT [employer] LABORATORIESLymphocytes Absolute1.441.10 - 3.70 k/uL03/30/2025 6:26 AM EDTMERCY LABORATORIESMonocytes Absolute1.030.10 - 1.20 k/uL03/30/2025 6:26 AM EDTMERCY LABORATORIESEosinophils Absolute0.100.00 - 0.44 k/uL03/30/2025 6:26 AM EDTMERCY LABORATORIESBasophils Absolute0.100.00 - 0.20 k/uL03/30/2025 6:26 AM EDTMERCY LABORATORIESMorphologyMACROCYTOSIS RJYFUZZ0703/30/2025 6:26 AM EDT [employer] LABORATORIESSpecimen (Source)Anatomical Location / LateralityCollection Method / VolumeCollection TimeReceived Time03/30/2025 6:26 AM EDT1 8:30 AM EDT Narrative Authorizing ProviderResult TypeResult StatusIsaias Monae DOCHEMISTRY ORDERABLESFinal ResultPerforming OrganizationAddressCity/State/ZIP CodePhone Number zePASS [address] [place] [address], [facility] [phone] * (ABNORMAL) CBC (03/30/2025 6:26 AM EDT)ComponentValueRef RangeTest Method Analysis TimePerformed AtPathologist OeltywqqcREU04.33.5 - 11.3 k/uL03/30/2025 6:26 AM EDTMERCY LABORATORIESRBC2.51(L)3.95 - 5.11 m/uL03/30/2025 6:26 AM EDT [facility] LABORATORIESHemoglobin9.3(L)11.9 - 15.1 g/dL03/30/2025 6:26 AM EDTMERCY YWQLDIVBCLOMCmvwmifrsh79.0(L)36.3 - 47.1 %03/30/2025 6:26 AM EDTMERCY ZROIUTUOPUABPFJ379.5(H)82.6 - 102.9 fL03/30/2025 6:26 AM EDTMERCY LABORATORIES MCH37.1(H)25.2 - 33.5 pg03/30/2025 6:26 AM EDTMERCY XUWEOMQSUWIUQYJC85.028.4 - 34.8 g/dL03/30/2025 6:26 AM EDTMERCY ARSSWGGWALTDENS27.211.8 - 14.4 % 03/30/2025 6:26 AM EDTMERCY YFEWRVCUGTQKMaluexpuh713189 - 453 k/uL03/30/2025 6:26 AM EDTMERCY IODCIUOIVDTUUDB89.88.1 - 13.5 fL03/30/2025 6:26 AM EDTMERCY LABORATORIESNRBC Automated0.00.0 per 100 WBC03/30/2025 6:26 AM EDTMERCY LABORATORIESSpecimen (Source)Anatomical Location / LateralityCollection Method / VolumeCollection TimeReceived Time03/30/2025 6:26 AM EDT1 8:30 AM EDT Narrative Authorizing ProviderResult TypeResult StatusAusmeenu Monae DOHEMATOLOGY ORDERABLESFinal ResultPerforming OrganizationAddressCity/State/ZIP CodePhone Number [facility]Park[facility] [address] [place] [address], [facility] [phone] * (ABNORMAL) Basic Metabolic Panel w/ Reflex to MG (03/30/2025 6:26 AM EDT) ComponentValueRef RangeTest MethodAnalysis TimePerformed AtPathologist KthddkfhkYvxrhe182(L)136 - 145 mmol/L1 6:26 AM EDTMERCY LABORATORIES Potassium3.2(L)3.7 - 5.3 mmol/L1 6:26 AM EDTMERCY LABORATORIES Bdgocqfm22722 - 107 mmol/L1 6:26 AM EDTMERCY WPUMXCWOXUYKRS60255 - 31 mmol/L1 6:26 AM EDTMERCY LABORATORIESAnion Ran826 - 16 mmol/L 03/30/2025 6:26 AM EDTMERCY MCPLQHTTDTDEWwyzwfg7942 - 99 mg/dL03/30/2025 6:26 AM EDTMERCY LABORATORIESBUN3(L)6 - 20 mg/dL03/30/2025 6:26 AM EDTMERCY LABORATORIESCreatinine0.4(L)0.6 - 0.9 mg/dL03/30/2025 6:26 AM EDTMERCY LABORATORIESEst, Glom Filt Rate>90>60 mL/min/1.01f37303/30/2025 6:26 AM EDTMERCY LABORATORIESComment: ? These results [...] Monae DOCHEMISTRY ORDERABLESFinal ResultPerforming OrganizationAddressCity/State/ZIP CodePhone Number [facility] [place] [address], [facility] [phone] * (ABNORMAL) Hepatic Function Panel (03/30/2025 6:26 AM EDT)ComponentValueRef RangeTest MethodAnalysis TimePerformed AtPathologist SignatureAlbumin2.6(L)3.5 - 5.2 g/dL03/30/2025 6:26 AM EDTMERCY LABORATORIESAlkaline Gfuclsdixmh637(H)35 - 104 U/L1 6:26 AM EDTMERCY VRHTKKSFPTMUJNA6373 - 35 U/L1 6:26 AM EDTMERCY NAXKYIRQVKZYAYB62(H)10 - 35 U/L1 6:26 AM EDTMERCY LABORATORIESTotal [...] / Volume Collection TimeReceived TimeBloodBLOOD SPECIMEN / Qlkgjej0003/30/2025 6:26 AM EDT1 8:30 AM EDT Narrative Authorizing ProviderResult TypeResult StatusIsaias Monae DOCHEMISTRY ORDERABLESFinal ResultPerforming OrganizationAddressCity/State/ZIP CodePhone Number [facility] [address] [phone] * (ABNORMAL) Hepatic Function Panel (03/29/2025 6:24 AM EDT)ComponentValueRef RangeTest MethodAnalysis TimePerformed AtPathologist SignatureAlbumin2.6(L)3.5 - 5.2 g/dL03/29/2025 6:24 AM EDTMERCY LABORATORIESAlkaline Mehyytaaeax056(H)35 - 104 U/L1 6:24 AM EDTMERCY UVZKDVOPGTFPQMA8974 - 35 U/L1 6:24 AM EDTMERCY ZKEVDHCLTMZUZZW69(H)10 - 35 U/L1 6:24 AM EDTMERCY LABORATORIESComment: [...] / VolumeCollection TimeReceived TimeBlood BLOOD SPECIMEN / Dyfucfl9503/29/2025 6:24 AM EDT1 6:42 AM EDT Narrative Authorizing ProviderResult TypeResult StatusIsaias Monae DOCHEMISTRY ORDERABLESFinal ResultPerforming OrganizationAddressCity/State/ZIP CodePhone Number [facility]HAUL [address] [place] [address], [facility] [phone] * (ABNORMAL) CBC (03/29/2025 6:24 AM EDT)ComponentValueRef RangeTest Method Analysis TimePerformed AtPathologist SignatureWBC8.63.5 - 11.3 k/uL03/29/2025 6:24 AM EDTMEnecsys LABORATORIESRBC2.44(L)3.95 - 5.11 m/uL03/29/2025 6:24 AM EDT [facility]ITALHAULHemoglobin9.1(L)11.9 - 15.1 g/dL03/29/2025 6:24 AM EDTMERCY OVKOKSGJQIBHKlozldpozd75.6(L)36.3 - 47.1 %03/29/2025 6:24 AM EDTMERCY MPSIANUYOHSIPTA466.3(H)82.6 - 102.9 fL03/29/2025 6:24 AM EDTMERCY LABORATORIES MCH37.3(H)25.2 - 33.5 pg03/29/2025 6:24 AM EDTMERCY RAIHDSGQDODYHBNR00.728.4 - 34.8 g/dL03/29/2025 6:24 AM EDTMERCY VEJRDKVGAQARWDH75.311.8 - 14.4 % 03/29/2025 6:24 AM EDTMERCY QMPYSFEWGCSZCsskeqysz852591 - 453 k/uL03/29/2025 6:24 AM EDTMERCY ZKVOBSCERKHJNZA59.38.1 - 13.5 fL03/29/2025 6:24 AM EDTMERCY LABORATORIESNRBC Automated0.00.0 per 100 WBC03/29/2025 6:24 AM EDTMERCY LABORATORIESSpecimen (Source)Anatomical Location / LateralityCollection Method / VolumeCollection TimeReceived TimeBLOOD SPECIMEN / Byeqggf1403/29/2025 6:24 AM EDT1 6:42 AM EDT Narrative Authorizing ProviderResult TypeResult StatusBakyle Ng MDHEMATOLOGY ORDERABLESFinal ResultPerforming OrganizationAddressCity/State/ZIP CodePhone Number [place] [id number] [place] [address], [facility] [phone] * (ABNORMAL) Basic Metabolic Panel w/ Reflex to MG (03/29/2025 6:24 AM EDT) ComponentValueRef RangeTest MethodAnalysis TimePerformed AtPathologist MkwhfauurGftnzy904(L)136 - 145 mmol/L1 6:24 AM EDTMERCY LABORATORIES Potassium4.23.7 - 5.3 mmol/L1 6:24 AM EDTMERCY LABORATORIESComment: Specimen hemolysis has exceeded the interference as defined by Francesco. Value may be falsely increased. Suggest recollection if clinically indicated. Uaofxtwf34479 - 107 mmol/L1 6:24 AM EDTMERCY HQUHKSIWMIEJMD58382 - 31 mmol/L1 6:24 AM EDTMERCY LABORATORIESAnion Gap7(L)9 - 16 mmol/L 03/29/2025 6:24 AM EDTMERCY YSDQHQIUIFFOFdiwwzo8814 - 99 mg/dL03/29/2025 6:24 AM EDTMERCY LABORATORIESBUN2(L)6 - 20 mg/dL03/29/2025 6:24 AM EDTMERCY [facility] Creatinine0.4(L)0.6 - 0.9 mg/dL03/29/2025 6:24 AM EDTMERCY LABORATORIESComment: Specimen icterus has exceeded the interference as defined by Francesco. Result may be affected.Est, Glom Filt Rate>90>60 mL/min/1.27t94603/29/2025 6:24 AM EDTMERCY LABORATORIESComment: ? These results [...] Method / VolumeCollection TimeReceived TimeBloodBLOOD SPECIMEN / Dtyvboz9603/29/2025 6:24 AM EDT1 6:42 AM EDT Narrative Authorizing ProviderResult TypeResult StatusBayan Zac Ng MDCHEMISTRY ORDERABLESFinal ResultPerforming OrganizationAddressCity/State/[place] [address], [facility] [phone] * SURGICAL PATHOLOGY REPORT (03/29/2025 12:00 AM EDT)ComponentValueRef RangeTest MethodAnalysis TimePerformed AtPathologist SignatureSurgical Pathology Report Path Number: [id number] -- Diagnosis -- Gallbladder: -Cholelithiasis and mild [...] Microscopic Description Microscopic examination performed. Processing Lab: ??[address] [address] Interpretation Performed at [address] [phone] SURGICAL PATHOLOGY CONSULTATION Patient Name: ENEIDA MEJIA [facility] Rec: [id number] [facility] ??[facility]ATOR[facility] ANATOMIC PATHOLOGY [address] [place] [address]. ??[place] [address] [facility] [employer] LABSSpecimen (Source)Anatomical Location / LateralityCollection Method / VolumeCollection TimeReceived Time 2:07 PM EDT Narrative Authorizing ProviderResult TypeResult StatusAmer Jennifer Sue MD PATHOLOGY/CYTOLOGY ORDERABLESFinal ResultPerforming OrganizationAddress City/State/ZIP CodePhone Number zePASS [address] [place] [address] [facility] [employer] [facility] * (ABNORMAL) Hepatic Function Panel (03/28/2025 4:26 AM EDT)ComponentValueRef RangeTest MethodAnalysis TimePerformed AtPathologist SignatureAlbumin2.6(L)3.5 - 5.2 g/dL03/28/2025 4:26 AM EDTMERCY LABORATORIESAlkaline Prsccbmmjuu035(H)35 - 104 U/L1 4:26 AM EDTMERCY ETBFWPZHVDMFHHU5090 - 35 U/L1 4:26 AM EDTMERCY ZADLSKFYHUGZXED84(H)10 - 35 U/L1 4:26 AM EDTMERCY LABORATORIESTotal [...] / Volume Collection TimeReceived TimeBloodBLOOD SPECIMEN / Nsnkvos5603/28/2025 4:26 AM EDT1 4:32 AM EDT Narrative Authorizing ProviderResult TypeResult StatusIsaias Monae DOCHEMISTRY ORDERABLESFinal ResultPerforming OrganizationAddressCity/State/[place] [address], [facility] [phone] * XR ABDOMEN (KUB) (SINGLE AP VIEW) [...] system calculus evident. Authorizing ProviderResult TypeResult StatusReba [facility] DIAG[facility]IC IMAGING ORDERABLESFinal Result * PREVIOUS SPECIMEN (03/27/2025 2:55 PM EDT)Specimen (Source)Anatomical Location / LateralityCollection Method / VolumeCollection TimeReceived Time03/27/2025 2:55 PM EDT1 3:10 PM EDT Narrative Authorizing ProviderResult TypeResult StatusMarvel Ng MDCHEMISTRY ORDERABLESFinal ResultPerforming OrganizationAddressCity/State/ZIP CodePhone [place] [address], [facility] [phone] * (ABNORMAL) Comprehensive Metabolic Panel w/ Reflex to MG (03/27/2025 2:55 PM EDT)ComponentValueRef RangeTest MethodAnalysis TimePerformed AtPathologist XgawlrccsYowumb258(L)136 - 145 mmol/L1 2:55 PM EDTMERCY LABORATORIES Potassium4.13.7 - 5.3 mmol/L1 2:55 PM EDTMERCY LABORATORIESChloride [address]27 - 107 mmol/L1 2:55 PM EDTMERCY TGWMTLXBAERJMY10857 - 31 mmol/L 03/27/2025 2:55 PM EDTMERCY LABORATORIESAnion Gap6(L)9 - 16 mmol/L1 2:55 PM EDTMERCY HEBTYAZSPMGZRpandve536(H)74 - 99 mg/dL03/27/2025 2:55 PM EDT [facility]ORATORIESBUN3(L)6 - 20 mg/dL03/27/2025 2:55 PM EDTMERCY LABORATORIES Creatinine0.3(L)0.6 - 0.9 mg/dL03/27/2025 2:55 PM EDTMERCY LABORATORIES Comment:Specimen icterus has exceeded the interference as defined by Francesco. Result may be affected.Est, Glom Filt Rate>90>60 mL/min/1.91r18503/27/2025 2:55 PM EDTMERCY LABORATORIESComment: ? These results [...] - 1.2 mg/dL03/27/2025 2:55 PM EDTMERCY LABORATORIESAlkaline Ecgxxhcteyl251(H)35 - 104 U/L1 2:55 PM EDTMERCY AJXQXGDWTFMIBYL5525 - 35 U/L10 2:55 PM EDTMERCY KLZYUTTLXHADUFF71(H)10 - 35 U/L1 2:55 PM EDTMERCY LABORATORIES Specimen (Source)Anatomical Location / LateralityCollection Method / Volume Collection TimeReceived Time03/27/2025 2:55 PM EDT1 3:10 PM EDT Narrative Authorizing ProviderResult TypeResult StatusBayan Zac Ng MDCHEMISTRY ORDERABLESFinal ResultPerforming OrganizationAddressCity/State/ZIP CodePhone Number [place] [address] [address] [phone] * (ABNORMAL) ECHO (TTE) COMPLETE (03/27/2025 11:55 AM EDT)ComponentValueRef RangeTest MethodAnalysis TimePerformed AtPathologist SignatureLV EDV E7K13hF BSM[facility] CV CPACSLV EDV Y0J62eLNLMR CV CPACSLV ESV X8U36tVWUSM CV CPACSLV ESV A4C 20mLBSMH CV CPACSIVSd0.80.6 - 0.9 cmBSMH CV CPACSLVIDd4.43.9 - 5.3 cmBSMH CV CPACSLVIDs3.1cmBSMH CV CPACSLVOT Diameter2.0cmBSMH CV CPACSLVOT Mean Gradient2 mmHgBSMH CV CPACSLVOT VTI15.3cmBSMH CV CPACSLVOT Peak Velocity0.9m/sBSMH CV CPACSLVOT Peak Fnzhpibb4blTyYSUQ CV CPACSLVPWd0.80.6 - 0.9 cmBSMH CV CPACSLV E' Lateral Velocity9.46cm/sBSMH CV CPACSLV E' Septal Velocity6.31cm/sBSMH CV CPACSGlobal longitudinal strain-15.3%[facility] CV CPACSLV Ejection Fraction A2C40% [facility] CV CPACSLV Ejection Fraction A4C61%[facility] CV CPACSEF QX3408 - 100 %[facility] CV CPACSLVOT Area3.1tm9PTLM CV CPACSLVOT SV48.0mlBSMH CV CPACSLA Minor Axis3.3cm [facility] CV CPACSLA Major Axis5.3cmBSMH CV CPACSLA Area 2C9.4hu5BQLZ CV CPACSLA Area 4C12.8fq8DPEI CV CPACSLA Volume MOD L2G4145 - 52 mLBSMH CV CPACSLA Volume MOD Y0F1267 - 52 mLBSMH CV CPACSLA Diameter3.7cmBSMH CV CPACSRA Area 4C12.8cm2 [facility] CV CPACSRA Mhrdoc17xlKQJG CV CPACSAV Mean Velocity0.8m/sBSMH CV CPACSAV Mean Cpeyaxlp1boHoWFJN CV CPACSAV VTI23.0cmBS[facility] CV CPACSAV Peak Velocity1.2m/s [facility] CV CPACSAV Peak Todwwmgv6mnVzHPWP CV CPACSAV Area by VTI2.5ch6XABD CV CPACSAV Area by Peak Velocity2.2is4GDEK CV CPACSAortic Root3.6cmBSMH CV CPACS Ascending Aorta3.0cmBS[facility] CV CPACSIVC Proxmal1.8cmBS[facility] CV CPACSMV E Wave Deceleration Lilz729.0msBSMH CV CPACSMV A Velocity0.75m/sBSMH CV CPACSMV E Velocity0.57m/sBSMH CV CPACSMV Mean Tpkktuim5xtXeNHPN CV CPACSMV VTI19.3cmBSMH CV CPACSMV Mean Velocity0.5m/sBSMH CV CPACSMV Max Velocity0.7m/sBSMH CV CPACS MV Peak Mdccpddt4cnLuMWJT CV CPACSMV Area by VTI2.2an9GHTF CV CPACSRV Basal Dimension3.1cmBSMH CV CPACSRV Mid Dimension3.1cmBS[facility] CV CPACSRV Free Wall Peak S'10.3cm/sBSMH CV CPACSTAPSE2.0>=1.7 cmBSMH CV CPACSBody Surface Area1.4m2LCVD CV CPACSFractional Shortening 0I9610 - 44 %[facility] CV CPACSLV ESV Index A4C12 mL/m2[facility] CV CPACSLV EDV Index N4F93pL/m2[facility] CV CPACSLV ESV Index F0V45sI/m2 [facility] CV CPACSLV EDV Index W9Z79nJ/m2[facility] CV CPACSLVIDd Index2.72cm/m2[facility] CV CPACSLVIDs Index1.91cm/m2[facility] CV [...] CPACSLA/AO Root Ratio1.03BS[facility] CV CPACSRA Volume Index T1O73fI/m2[facility] CV CPACSAo Root Index2.22cm/m2[facility] CV CPACSAscending Aorta Index1.85cm/m2[facility] CV CPACSAV Velocity Ratio0.75[facility] CV CPACSLVOT:AV VTI Index0.67[facility] CV CPACSAVA/BSA VTI 1.3cm2/m2[facility] CV CPACSAVA/BSA Peak Velocity1.4cm2/m2[facility] CV CPACSMV:LVOT VTI Index1.26[facility] CV CPACSEst. RA Hnoqecai1nnOwETPB CV CPACSEF Mmzzzbfgt11%[facility] CV CPACSAnatomical RegionLateralityModalityEchocardiographySpecimen (Source) Anatomical Location / [...] given. Authorizing ProviderResult TypeResult StatusSyed Diego Harper [facility] [place]CHO ORDERABLESFinal Result * (ABNORMAL) CBC (03/27/2025 11:26 AM EDT)ComponentValueRef RangeTest Method Analysis TimePerformed AtPathologist FcmgtjhoaSTE21.0(H)3.5 - 11.3 k/uL 03/27/2025 11:26 AM EDTMERCY LABORATORIESRBC2.54(L)3.95 - 5.11 m/uL03/27/2025 11:26 AM EDTMERCY LABORATORIESHemoglobin9.7(L)11.9 - 15.1 g/dL03/27/2025 11:26 AM EDTVAX Biomedical NHFRWMWCJGZIYivcixezmy48.9(L)36.3 - 47.1 %03/27/2025 11:26 AM EDT [facility]ParkVu ZNWKXBEJWUGIUHT372.7(H)82.6 - 102.9 fL03/27/2025 11:26 AM EDTMEnecsys SCQMXMBUKVQIKYL49.2(H)25.2 - 33.5 pg03/27/2025 11:26 AM EDTMERCY LABORATORIES MCHC31.428.4 - 34.8 g/dL03/27/2025 11:26 AM EDTMERCY GBGTJJAPIATYVWU22.711.8 - 14.4 %03/27/2025 11:26 AM EDTMERCY XQXTHJUUPZRAGwjdqssrr712492 - 453 k/uL 03/27/2025 11:26 AM EDTMSwallow SolutionsY LEWZMOTSWLJONJC70.18.1 - 13.5 fL03/27/2025 11:26 AM EDTMERCY LABORATORIESNRBC Automated0.00.0 per 100 WBC03/27/2025 11:26 AM EDTMERCY LABORATORIESSpecimen (Source)Anatomical Location / Laterality Collection Method / VolumeCollection TimeReceived TimeBLOOD SPECIMEN / Unknown 03/27/2025 11:26 AM EDT1 12:04 PM EDT Narrative Authorizing ProviderResult TypeResult StatusLucyan Zac Ng MDHEMATOLOGY ORDERABLESFinal ResultPerforming OrganizationAddressCity/State/ZIP CodePhone Number zePASS [address] [place] [address], [facility] [phone] * US GI ENDOSCOPIC S&I (03/26/2025 11:44 PM EDT)Specimen (Source)Anatomical Location / LateralityCollection Method / VolumeCollection TimeReceived Time Narrative [facility] RIS CONSOLIDATED - 03/26/2025 11:44 PM EDT Radiology exam is complete. No Radiologist dictation. Please follow up with ordering provider. Authorizing ProviderResult TypeResult StatusSyed Diego Harper MDIMAsh US ORDERABLESFinal ResultPerforming OrganizationAddressCity/State/ZIP CodePhone Number [facility] RIS CONSOLIDATED * FLUORO FOR SURGICAL PROCEDURES (03/26/2025 6:17 PM EDT)Specimen (Source) Anatomical Location / LateralityCollection Method / VolumeCollection Time Received Time Narrative [facility] CONSOLIDATED - 03/26/2025 6:17 PM EDT Radiology exam is complete. No Radiologist dictation. Please follow up with ordering provider. 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 ??STOMACH, BIOPSY: - [...] will be forwarded in consultation to the [facility] for an expert second opinion. ??Their findings will be forthcoming in a supplemental report. Tye Dodson D.O. Electronically Signed Out ? ljjyoti/03/28/2025 Clinical Information Pre-op diagnosis: ??COMMON BILE DUCT [...] B. Microscopic examination performed. ?? Processing Lab: ??[address] [address] Interpretation Performed at [address] [address] SURGICAL PATHOLOGY CONSULTATION Patient Name: ENEIDA MEJIA [facility] Rec: [id number] [facility] ??LABORATORIES [facility] ANATOMIC PATHOLOGY [address] [place] [address]. ??[place] [phone] [facility] LABSSpecimen (Source)Anatomical Location / LateralityCollection Method / VolumeCollection TimeReceived Time 03/26/2025 9:22 AM EDT1 Narrative Authorizing ProviderResult TypeResult StatusSyed Diego Harper MD PATHOLOGY/CYTOLOGY ORDERABLESFinal ResultPerforming OrganizationAddress City/State/ZIP CodePhone Number zePASS [address] [place] [address] [facility] * (ABNORMAL) Comprehensive Metabolic Panel w/ Reflex to MG (03/26/2025 6:46 AM EDT)ComponentValueRef RangeTest MethodAnalysis TimePerformed AtPathologist XyhjpahueDloxrt903(L)136 - 145 mmol/L1 6:46 AM EDTMERCY LABORATORIES Potassium3.6(L)3.7 - 5.3 mmol/L1 6:46 AM EDTMERCY LABORATORIES Ofmtrnyc16325 - 107 mmol/L1 6:46 AM EDTMERCY ETSPYNJGBRSXHQ50835 - 31 mmol/L1 6:46 AM EDTMERCY LABORATORIESAnion Gap7(L)9 - 16 mmol/L 03/26/2025 6:46 AM EDTMERCY SSEMRQSYIJUJMbtnwyl4775 - 99 mg/dL03/26/2025 6:46 AM EDTMERCY LABORATORIESBUN<2(L)6 [...] - 1.2 mg/dL03/26/2025 6:46 AM EDTMERCY LABORATORIESAlkaline Ddssjwvsyxi350(H)35 - 104 U/L1 6:46 AM EDTMERCY YSSIEVEAYWIMTSN88(H)10 - 35 U/L1 6:46 AM EDTMERCY QKUZHTPGBHWGBVE98(H)10 - 35 U/L1 6:46 AM EDTMERCY LABORATORIESSpecimen (Source)Anatomical Location / LateralityCollection Method / VolumeCollection TimeReceived TimeBloodBLOOD SPECIMEN / Djfriyy3103/26/2025 6:46 AM EDT1 7:20 AM EDT Narrative Authorizing ProviderResult TypeResult StatusHossein Fuller Hospitalrashmi MDCHEMISTRY ORDERABLESFinal ResultPerforming OrganizationAddressCity/State/[facility] CodePhone Number [facility]OSPITALHAUL [address] [phone] * (ABNORMAL) CBC with Auto Differential (03/26/2025 6:46 AM EDT)ComponentValue Ref RangeTest MethodAnalysis TimePerformed AtPathologist BcbgfwcnhCBU66.13.5 - 11.3 k/uL03/26/2025 6:46 AM EDTMERCY LABORATORIESRBC2.20(L)3.95 - 5.11 m/uL 03/26/2025 6:46 AM EDTMERCY LABORATORIESHemoglobin8.4(L)11.9 - 15.1 g/dL 03/26/2025 6:46 AM EDTMERCY ZANWZQHMQNZURjdkamoiww35.4(L)36.3 - 47.1 % 03/26/2025 6:46 AM EDTMERCY XDPEGQIEYEPWEMI751.0(H)82.6 - 102.9 fL03/26/2025 6:46 AM EDTMERCY GYYQSMHVDULHWBH66.2(H)25.2 - 33.5 pg03/26/2025 6:46 AM EDT [facility] UIUURUFHDAZMCXRZ20.828.4 - 34.8 g/dL03/26/2025 6:46 AM EDTMERCY ONPJJRNYURMWSKI49.011.8 - 14.4 %03/26/2025 6:46 AM EDTMERCY LABORATORIES Fmjxiwimb267007 - 453 k/uL03/26/2025 6:46 AM EDTMERCY XPMSQGGASHXXZFA89.88.1 - 13.5 fL03/26/2025 6:46 AM EDTMERCY LABORATORIESNRBC [...] - 0.20 k/uL03/26/2025 6:46 AM EDTMERCY LABORATORIESMorphologyMACROCYTOSIS YEOXIIN6103/26/2025 6:46 AM EDTMERCY LABORATORIESSpecimen (Source)Anatomical Location / LateralityCollection Method / VolumeCollection TimeReceived TimeBloodBLOOD SPECIMEN / Svxfkvk9203/26/2025 6:46 AM EDT1 7:20 AM EDT Narrative Authorizing ProviderResult TypeResult StatusHosshany Andujar MDHEMATOLOGY ORDERABLESFinal ResultPerforming OrganizationAddressCity/State/ZIP CodePhone Number zePASS [address] [place] [address] * SURGICAL PATHOLOGY REPORT (03/26/2025 12:00 AM EDT)ComponentValueRef RangeTest MethodAnalysis TimePerformed AtPathologist SignatureSurgical Pathology Report Path Number: [id number] INTERPRETATION LYMPH NODE, VERNON HEPATIS, FINE NEEDLE [...] MICROSCOPIC DESCRIPTION Microscopic examination performed. ? Non Verification Lead Thin Prep x 1, Cell Block w/ H&E x 1 Processing Lab: [address] [address] Interpretation performed at [address] [address] NONGYNECOLOGICAL CYTOPATHOLOGY CONSULTATION Patient Name: ENEIDA MEJIA [facility] Rec: [id number] [facility] ??LABORATORIES CONSULTING PATHOLOGISTS [facility] EM[facility] ANATOMIC PATHOLOGY [address] [place] [address]. ??[place] [phone] [facility] LABSSpecimen (Source)Anatomical Location / LateralityCollection Method / VolumeCollection TimeReceived Time 9:56 AM EDT Narrative Authorizing ProviderResult TypeResult StatusSyed Diego Harper MD PATHOLOGY/CYTOLOGY ORDERABLESFinal ResultPerforming OrganizationAddress City/State/ZIP CodePhone Number zePASS [address] [place] [address] [facility] * (ABNORMAL) Comprehensive Metabolic Panel (03/26/2025 12:00 AM EDT)Component ValueRef RangeTest MethodAnalysis TimePerformed AtPathologist SignatureSodium 127(L)136 - 145 mmol/L1 12:00 AM EDTMERCY LABORATORIESPotassium3.5(L) 3.7 - 5.3 mmol/L1 12:00 AM EDTMERCY REUSZFPCOECCNdlrphxq9047 - 107 mmol/L1 12:00 AM EDTMERCY DBCUJMMLFXUFCB10814 - 31 mmol/L1 12:00 AM EDTMERCY LABORATORIESAnion Gap6(L)9 - 16 mmol/L1 12:00 AM EDTMERCY LKDUCKPWQSBFKxvwjtj136(H)74 - 99 mg/dL03/26/2025 12:00 AM EDTMERCY LABORATORIESBUN<2(L)6 - 20 mg/dL03/26/2025 12:00 AM EDTMERCY LABORATORIES Creatinine0.3(L)0.6 - 0.9 mg/dL03/26/2025 12:00 AM EDTMERCY LABORATORIES Comment:Specimen icterus has exceeded the interference as defined by Francesco. Result may be affected.Est, Glom Filt Rate>90>60 mL/min/1.14r94603/26/2025 12:00 AM EDTMERCY LABORATORIESComment: ? These results [...] - 1.2 mg/dL03/26/2025 12:00 AM EDTMERCY LABORATORIESAlkaline Cspzlbldqor128(H) 35 - 104 U/L1 12:00 AM EDTMERCY DJWFILBMDIISQJF03(H)10 - 35 U/L 03/26/2025 12:00 AM EDTMERCY KMMTPYZMPIESXAU10(H)10 - 35 U/L1 12:00 AM EDTMERCY LABORATORIESSpecimen (Source)Anatomical Location / LateralityCollection Method / VolumeCollection TimeReceived TimeBloodBLOOD SPECIMEN / Unknown 12:05 AM EDT Narrative Authorizing ProviderResult TypeResult StatusDilnoor Chloe MDCHEMISTRY ORDERABLES Final ResultPerforming OrganizationAddressCity/State/ZIP CodePhone Number [place] [phone] [address] [phone] * (ABNORMAL) Basic Metabolic Panel w/ Reflex to MG (03/25/2025 8:16 PM EDT) ComponentValueRef RangeTest MethodAnalysis TimePerformed AtPathologist VsxaufkctTgnzph098(L)136 - 145 mmol/L1 8:16 PM EDTMERCY LABORATORIES Potassium3.6(L)3.7 - 5.3 mmol/L1 8:16 PM EDTMERCY LABORATORIES Jffmmccl1662 - 107 mmol/L1 8:16 PM EDTMERCY TJSMVDMTOQCJGT329(L)20 - 31 mmol/L1 8:16 PM EDTMERCY LABORATORIESAnion Cil175 - 16 mmol/L 03/25/2025 8:16 PM EDTMERCY KRACEQRWNOGKOzelwvy729(H)74 - 99 mg/dL03/25/2025 8:16 PM EDTMERCY LABORATORIESBUN<2(L)6 [...] MDCHEMISTRY ORDERABLES Final ResultPerforming OrganizationAddressty/State/ZIP CodePhone Number [employer] [address] [phone] * PREVIOUS SPECIMEN (03/25/2025 3:59 PM EDT)Specimen (Source)Anatomical Location / LateralityCollection Method / VolumeCollection TimeReceived Time03/25/2025 3:59 PM EDT1 4:09 PM EDT Narrative Authorizing ProviderResult TypeResult StatusDilnoor Chloe MDCHEMISTRY ORDERABLES Final ResultPerforming OrganizationAddressPremier [facility]/State/ZIP CodePhone Number zePASS [address] [place] [address] * (ABNORMAL) Vitamin B12 & Folate (03/25/2025 3:59 PM EDT)ComponentValueRef RangeTest MethodAnalysis TimePerformed AtPathologist SignatureVitamin B-12 >2000(H)232 - 1245 pg/mL03/25/2025 3:59 PM EDTMERCY LXHKUBSVOSHGLdjttb06.5(H) 4.8 - 24.2 ng/mL03/25/2025 3:59 PM EDTMERCY LABORATORIESSpecimen (Source) Anatomical Location / LateralityCollection Method / VolumeCollection Time Received Time03/25/2025 3:59 PM EDT1 4:09 PM EDT Narrative Authorizing ProviderResult TypeResult StatusDilnoor Chloe MDCHEMISTRY ORDERABLES Final ResultPerforming OrganizationAddressCity/State/ZIP CodePhone Number zePASS [address] [place] [address], [facility] [phone] * US ORGAN ELASTOGRAPHY (03/25/2025 12:16 PM [...] Liver stiffness measurements were obtained on a [employer] E9 unit with a C1-6-D transducer. ??12 [...] ??No included free intraperitoneal fluid. Procedure Note [place], Luigi D, MD - 03/25/2025 EXAMINATION: LIVER ELASTOGRAPHY ULTRASOUND 03/25/2025 12:00 pm TECHNIQUE: Liver stiffness measurements were obtained on a [employer] E9unit with a C1-6-D transducer. 12 valid [...] F4 (cirrhosis, >11.9 kPa). Authorizing ProviderResult TypeResult StatusDimas Andujar MDIMAsh US ORDERABLES Final Result * (ABNORMAL) Ferritin (03/25/2025 6:51 AM EDT)ComponentValueRef RangeTest Method Analysis TimePerformed AtPathologist QvhdfwyejUewcfekw775(H)15 - 150 ng/mL 03/25/2025 6:51 AM EDTMERCY [...] MDCHEMISTRY ORDERABLES Final ResultPerforming OrganizationAddressCity/State/[place] [address], [facility] [phone] * (ABNORMAL) Iron and TIBC (03/25/2025 6:51 AM EDT)ComponentValueRef RangeTest MethodAnalysis TimePerformed AtPathologist LvgolioesFwmu5123 - 145 ug/dL 03/25/2025 6:51 AM EDTMERCY GSYASSKQPYGTFHJK108(L)250 - 450 ug/dL03/25/2025 6:51 AM EDTMERCY LABORATORIESIron % Scpfqbwnyz3821 - 55 %03/25/2025 6:51 AM EDTMERCY HQEWTDZLIPXOYKYF06(L)112 - 347 ug/dL03/25/2025 6:51 AM EDTMERCY LABORATORIESSpecimen (Source)Anatomical Location / LateralityCollection Method / VolumeCollection TimeReceived Time03/25/2025 6:51 AM EDT1 8:25 AM EDT Narrative Authorizing ProviderResult TypeResult StatusDilnoor Chloe MDCHEMISTRY ORDERABLES Final ResultPerforming OrganizationAddressCity/State/[place] [address], [facility] [phone] * (ABNORMAL) Magnesium (03/25/2025 6:51 AM EDT)ComponentValueRef RangeTest MethodAnalysis TimePerformed AtPathologist SignatureMagnesium1.5(L)1.6 - 2.6 mg/dL03/25/2025 6:51 AM EDTMERCY LABORATORIESSpecimen (Source)Anatomical Location / LateralityCollection Method / VolumeCollection TimeReceived Time 03/25/2025 6:51 AM EDT1 8:25 AM EDT Narrative Authorizing ProviderResult TypeResult StatusDilnoor Chloe MDCHEMISTRY ORDERABLES Final ResultPerforming OrganizationAddressty/State/[place] [address], [facility] [phone] * (ABNORMAL) Comprehensive Metabolic Panel w/ Reflex to MG (03/25/2025 6:51 AM EDT)ComponentValueRef RangeTest MethodAnalysis TimePerformed AtPathologist QrfivxiisUdmyuq160(L)136 - 145 mmol/L1 6:51 AM EDTMERCY LABORATORIES Potassium2.9(LL)3.7 - 5.3 mmol/L1 6:51 AM EDTMERCY LABORATORIES Parcabzu88342 - 107 mmol/L1 6:51 AM EDTMERCY MMDAASGUXLYKXC95773 - 31 mmol/L1 6:51 AM EDTMERCY LABORATORIESAnion Oez164 - 16 mmol/L 03/25/2025 6:51 AM EDTMERCY SJVLFDMXARHMQjgqgqe15(L)74 - 99 mg/dL03/25/2025 6:51 AM EDTMERCY LABORATORIESBUN<2(L)6 [...] - 1.2 mg/dL03/25/2025 6:51 AM EDTMERCY LABORATORIESAlkaline Bxjcsfnyzmu866(H)35 - 104 U/L1 6:51 AM EDTMERCY LLVDIJFGDLHYPTN38(H)10 - 35 U/L1 6:51 AM EDTMERCY YUUQOAWCFTGHNIY02(H)10 - 35 U/L1 6:51 AM EDTMERCY LABORATORIESSpecimen (Source)Anatomical Location / LateralityCollection Method / VolumeCollection TimeReceived TimeBloodBLOOD SPECIMEN / Myoacyi1503/25/2025 6:51 AM EDT1 8:25 AM EDT Narrative Authorizing ProviderResult TypeResult StatusHossein Fuller Hospitalrashmi MDCHEMISTRY ORDERABLESFinal ResultPerforming OrganizationAddressCity/State/[facility] CodePhone Number [address] [phone] * (ABNORMAL) CBC with Auto Differential (03/25/2025 6:51 AM EDT)ComponentValue Ref RangeTest MethodAnalysis TimePerformed AtPathologist JmkcqxyuaBDA03.8(H) 3.5 - 11.3 k/uL03/25/2025 6:51 AM EDTMERCY LABORATORIESRBC2.14(L)3.95 - 5.11 m/uL03/25/2025 6:51 AM EDTMERCY LABORATORIESHemoglobin8.1(L)11.9 - 15.1 g/dL 03/25/2025 6:51 AM EDTMERCY ZGNVMFCWNHILNvdeaktkxy25.5(L)36.3 - 47.1 % 03/25/2025 6:51 AM EDTMERCY ULBRIMMTPRRTJSY580.2(H)82.6 - 102.9 fL03/25/2025 6:51 AM EDTMERCY YUABSXXRTGDYFFE53.9(H)25.2 - 33.5 pg03/25/2025 6:51 AM EDT [facility] UOXXOUCQDCTEBAJR14.828.4 - 34.8 g/dL03/25/2025 6:51 AM EDTMERCY BTQYRBAOHUURNJG19.211.8 - 14.4 %03/25/2025 6:51 AM EDTMERCY LABORATORIES Xlaglfemh405444 - 453 k/uL03/25/2025 6:51 AM EDTMERCY KLSXFYZEYPSJORY75.38.1 - 13.5 fL03/25/2025 6:51 AM EDTMERCY LABORATORIESNRBC [...] - 0.20 k/uL03/25/2025 6:51 AM EDTMERCY LABORATORIESMorphologyMACROCYTOSIS PDOKHJX6703/25/2025 6:51 AM EDTMERCY LABORATORIESSpecimen (Source)Anatomical Location / LateralityCollection Method / VolumeCollection TimeReceived TimeBloodBLOOD SPECIMEN / Swtikyq3203/25/2025 6:51 AM EDT1 8:25 AM EDT Narrative Authorizing ProviderResult TypeResult StatusHoisma Andujar MDHEMATOLOGY ORDERABLESFinal ResultPerforming OrganizationAddressCity/State/ZIP CodePhone Number ROBYN Qu[place] [address], [facility] [phone] * SURGICAL PATHOLOGY REPORT (03/25/2025 12:00 AM EDT)ComponentValueRef RangeTest MethodAnalysis TimePerformed AtPathologist SignatureSurgical Pathology Report Path Number: [id number] -- Diagnosis -- A. ??Stomach, biopsy: - [...] POLYPS BX Gross Description A. ?? ENEIDA MEJIA, STOMACH BX Received in formalin are two mcintosh-white tissue fragments from 0.2 to 0.4 cm and are 0.6 x 0.1 x 0.1 cm in aggregate. ??Entirely 1cs. B. ?? ENEIDA MEJIA, COLON ASCENDING POLYPECTOMY Received in formalin is one mcintosh-white tissue fragment, 0.2 x 0.2 x 0.2 cm. ??Entirely 1cs. C. ?? ENEIDA MEJIA, SIGMOID COLON POLYPS BX Received in formalin are three mcintosh-white tissue fragments from 0.1 to 0.5 cm and are 0.8 x 0.2 x 0.2 cm in aggregate. ??Entirely 1cs. ??jj tm Laly Lo/se:03/25/2025 Microscopic Description A-C. Microscopic examination performed. Processing Lab: ??[address] [address] Interpretation Performed at [address] [address] SURGICAL PATHOLOGY CONSULTATION Patient Name: ENEIDA MEJIA [facility] Rec: [id number] [facility] ??LABORATORIES [facility] ANATOMIC PATHOLOGY [address] [place] [address]. ??[place], [place] [address] [facility] [employer] [facility] LABSSpecimen (Source)Anatomical Location / LateralityCollection Method / VolumeCollection TimeReceived Time 10:59 AM EDT Narrative Authorizing ProviderResult TypeResult StatusHosshany Andujar MDPATHOLOGY/CYTOLOGY ORDERABLESFinal ResultPerforming OrganizationAddressCity/State/ZIP CodePhone Number zePASS [address] [place] [address] [facility] * MRI ABDOMEN W WO CONTRAST [...] Severe loss of signal intensity seen on ute-xd-tnkmq imaging consistent with severe hepatic steatosis. Mild [...] Severe loss of signal intensity seen on uqn-oq-swgkd imaging consistentwith severe hepatic steatosis. Mild hepatomegaly [...] of cholecystitis. Authorizing ProviderResult TypeResult StatusAimee Miester STOCK BLENDER - NPIMG MRI ORDERABLESFinal Result * (ABNORMAL) Comprehensive Metabolic Panel w/ Reflex to MG (03/24/2025 6:30 AM EDT)ComponentValueRef RangeTest MethodAnalysis TimePerformed AtPathologist LbqtlelwiWyxrrw780(L)136 - 145 mmol/L1 6:30 AM EDTMERCY LABORATORIES Potassium3.73.7 - 5.3 mmol/L1 6:30 AM EDTMERCY LABORATORIESChloride [address]339 - 107 mmol/L1 6:30 AM EDTMERCY PCMQDRRJQJHATG73034 - 31 mmol/L 03/24/2025 6:30 AM EDTMERCY LABORATORIESAnion Gjd753 - 16 mmol/L1 6:30 AM EDTMERCY YVAWJGTBLGWQWycberl2714 - 99 mg/dL03/24/2025 6:30 AM EDTMERCY LABORATORIESBUN2(L)6 - 20 mg/dL03/24/2025 6:30 AM EDTMERCY LABORATORIES Creatinine0.4(L)0.6 - 0.9 mg/dL03/24/2025 6:30 AM EDTMERCY [facility]ORATORIES Comment:Specimen icterus has exceeded the interference as defined by Francesco. Result may be affected.Est, Glom Filt Rate>90>60 mL/min/1.31v85603/24/2025 6:30 AM EDTMERCY LABORATORIESComment: ? These results [...] 6:30 AM EDTMERCY LABORATORIESAlbumin/Globulin Ratio1.0 1.0 - 2. 6:30 AM EDTMERCY LABORATORIESTotal Bilirubin6.6(H)0.0 - 1.2 mg/dL03/24/2025 6:30 AM EDTMERCY LABORATORIESAlkaline Kkymeprxjtc003(H)35 - 104 U/L1 6:30 AM EDTMERCY VSBNKKAHKXWSNGE19(H)10 - 35 U/L1 6:30 AM EDTMERCY IVQYOIQQWVVNDXC397(H)10 - 35 U/L1 6:30 AM EDTMERCY LABORATORIESSpecimen (Source)Anatomical Location / LateralityCollection Method / VolumeCollection TimeReceived TimeBloodBLOOD SPECIMEN / Fmphjhg8203/24/2025 6:30 AM EDT1 7:03 AM EDT Narrative Authorizing ProviderResult TypeResult StatusHossein [facility] MDCHEMISTRY ORDERABLESFinal ResultPerforming OrganizationAddressCity/State/ZIP CodePhone Number zePASS [address] [place] [address], [facility] [phone] * (ABNORMAL) CBC with Auto Differential (03/24/2025 6:30 AM EDT)ComponentValue Ref RangeTest MethodAnalysis TimePerformed AtPathologist HvqwftvrbWSC90.5(H) 3.5 - 11.3 k/uL03/24/2025 6:30 AM EDTMERCY LABORATORIESRBC2.35(L)3.95 - 5.11 m/uL03/24/2025 6:30 AM EDTMERCY LABORATORIESHemoglobin8.9(L)11.9 - 15.1 g/dL 03/24/2025 6:30 AM EDTMERCY HEEDNIOQHTUCIyuxdswquj54.1(L)36.3 - 47.1 % 03/24/2025 6:30 AM EDTMERCY DJXWEQMNNJFJYON936.6(H)82.6 - 102.9 fL03/24/2025 6:30 AM EDTMERCY ZDREELLQSCGHNHC80.9(H)25.2 - 33.5 pg03/24/2025 6:30 AM EDT zePASSMCHC31.728.4 - 34.8 g/dL03/24/2025 6:30 AM EDTMERCY OYNBVCERCRFELNZ52.6(H)11.8 - 14.4 %03/24/2025 6:30 AM EDTMERCY LABORATORIES Lumwcaqtr436303 - 453 k/uL03/24/2025 6:30 AM EDTMERCY NNMXICUYOUCAUOL90.88.1 - 13.5 fL03/24/2025 6:30 AM EDTMERCY LABORATORIESNRBC Automated0.00.0 per 100 WBC03/24/2025 6:30 AM EDTMERCY LABORATORIESImmature Granulocytes %2(H)0 % 03/24/2025 6:30 AM EDTMERCY LABORATORIESNeutrophils %87(H)36 - 65 %03/24/2025 6:30 AM EDTMERCY LABORATORIESLymphocytes %6(L)24 - 43 %03/24/2025 6:30 AM EDT [employer] LABORATORIESMonocytes %43 - 12 %03/24/2025 6:30 AM [...] - 0.20 k/uL03/24/2025 6:30 AM EDTMERCY LABORATORIESMorphologyANISOCYTOSIS POUXTKV9803/24/2025 6:30 AM EDTMERCY LABORATORIESMorphologyMACROCYTOSIS GRXNIPV9703/24/2025 6:30 AM EDTMERCY LABORATORIESSpecimen (Source)Anatomical Location / LateralityCollection Method / VolumeCollection TimeReceived TimeBloodBLOOD SPECIMEN / Rukuock8903/24/2025 6:30 AM EDT1 7:03 AM EDT Narrative Authorizing ProviderResult TypeResult StatusHosshany Andujar MDHEMATOLOGY ORDERABLESFinal ResultPerforming OrganizationAddressCity/State/ZIP CodePhone Number [facility] [address] [place] [address], [facility] [phone] * Protime-INR (03/24/2025 6:30 AM EDT)ComponentValueRef RangeTest MethodAnalysis TimePerformed AtPathologist FiroftllyNzbsbkp16.911.7 - 14.9 sec03/24/2025 6:30 AM EDTMERCY LABORATORIESINR1. 6:30 AM EDTMERCY LABORATORIES Comment: ? Therapeutic Range: Moderate Anticoagulant Intensity: INR = 2.0-3.0 High Anticoagulant Intensity: INR = 2.5-3.5 Specimen (Source)Anatomical Location / LateralityCollection Method / Volume Collection TimeReceived TimeBloodBLOOD SPECIMEN / Wedemes4603/24/2025 6:30 AM EDT 03/24/2025 7:03 AM EDT Narrative Authorizing ProviderResult TypeResult StatusChristine M Alexa APNHEMATOLOGY ORDERABLESFinal ResultPerforming OrganizationAddressCity/State/ZIP CodePhone Number zePASS [address] [place] [address], [facility] [phone] * (ABNORMAL) Comprehensive Metabolic Panel (03/24/2025 12:48 AM EDT)Component ValueRef RangeTest MethodAnalysis TimePerformed AtPathologist SignatureSodium 129(L)136 - 145 mmol/L1 12:48 AM EDTMERCY LABORATORIESPotassium3.6(L) 3.7 - 5.3 mmol/L1 12:48 AM EDTMERCY NTLHRICLHNBFFbufcsai22(L)98 - 107 mmol/L1 12:48 AM EDTMERCY VHJZTMYUSSCMPQ95685 - 31 mmol/L1 12:48 AM EDTMERCY LABORATORIESAnion Gfl098 - 16 mmol/L1 12:48 AM EDT [facility]ParkVu NWTTDMFQTMYOLvenapj8197 - 99 mg/dL03/24/2025 12:48 AM EDTMERCY LABORATORIESBUN3(L)6 - 20 mg/dL03/24/2025 12:48 AM EDTMERCY LABORATORIES Creatinine0.3(L)0.6 - 0.9 mg/dL03/24/2025 12:48 AM EDTMERCY LABORATORIES Comment:Specimen icterus has exceeded the interference as defined by Francesco. Result may be affected.Est, Glom Filt Rate>90>60 mL/min/1.77w76503/24/2025 12:48 AM EDTMERCY LABORATORIESComment: ? These results [...] - 1.2 mg/dL03/24/2025 12:48 AM EDTMERCY LABORATORIESAlkaline Pstygqvbkmr620(H) 35 - 104 U/L1 12:48 AM EDTMERCY PRSISCEPQMIHLOY92(H)10 - 35 U/L 03/24/2025 12:48 AM EDTMERCY FZQVJAWKCWGOOKR645(H)10 - 35 U/L1 12:48 AM EDTMERCY LABORATORIESSpecimen (Source)Anatomical Location / Laterality Collection Method / VolumeCollection TimeReceived TimeBloodBLOOD SPECIMEN / Pmsepvr3503/24/2025 12:48 AM EDT1 1:01 AM EDT Narrative Authorizing ProviderResult TypeResult StatusDilnoor Chloe MDCHEMISTRY ORDERABLES Final ResultPerforming OrganizationAddressCity/State/ZIP CodePhone Number [employer] [facility] [address] [place] [address], [facility] [phone] * C DIFF TOXIN/ANTIGEN (03/23/2025 6:24 PM EDT)ComponentValueRef RangeTest MethodAnalysis TimePerformed AtPathologist SignatureSpecimen Description.FECES 03/23/2025 6:24 PM EDTMERCY LABORATORIESC DIFF AG + TOXINNEGATIVENEGATIVE 03/23/2025 6:24 PM EDTMERCY LABORATORIESComment:No C. difficile antigen and Toxin Detected.Specimen (Source)Anatomical Location / LateralityCollection Method / VolumeCollection TimeReceived TimeSTOOL SPECIMEN / Gyksjwl2703/23/2025 6:24 PM EDT1 6:24 PM EDT Narrative Authorizing ProviderResult TypeResult StatusChristine Brianna ThorpeAlexa APNMICROBIOLOGY - GENERAL ORDERABLESFinal ResultPerforming OrganizationAddressCity/State/ZIP CodePhone Number [facility] [address] [place] [address], [facility] [phone] * Gastrointestinal Panel, Molecular (03/23/2025 6:24 PM EDT)ComponentValueRef RangeTest MethodAnalysis TimePerformed AtPathologist SignatureSpecimen Description.FECES03/23/2025 6:24 PM EDTMERCY LABORATORIESCampylobacter PCR NEGATIVE: No Campylobacter spp. (jejuni or coli) DNA DetectedNEGATIVE: No Campylobacter spp. (jejuni or coli) DNA Wnrzrsu12/11/2025 6:24 PM EDTMERCY LABORATORIESSalmonella PCRNEGATIVE: No Salmonella spp. DNA DetectedNEGATIVE: No Salmonella spp. DNA Aqhoqwio45/11/2025 6:24 PM EDTMERCY LABORATORIES Shigatoxin Gene PCRNEGATIVE: No Shiga toxin-producing gene(s) Detected NEGATIVE: No Shiga toxin-producing gene(s) Flainqiz19/11/2025 6:24 PM EDTMERCY LABORATORIESShigella Sp PCRNEGATIVE: No Shigella spp. / EIEC DNA Detected NEGATIVE: No Shigella spp. / EIEC DNA Hhtprjfc06/11/2025 6:24 PM EDTMERCY LABORATORIESPlesiomonas Shigelloides PCRNEGATIVE: No Plesionomas shigelloides DNA DetectedNEGATIVE: No Plesionomas shigelloides DNA Lnvvcsjx34/11/2025 6:24 PM EDTMERCY LABORATORIESVibrio PCRNEGATIVE: No Vibrio [...] enterocolitica DNA DetectedNEGATIVE: No Yersinia enterocolitica DNA Ffbmngde15/11/2025 6:24 PM EDTMERCY LABORATORIESSpecimen (Source)Anatomical Location / LateralityCollection Method / VolumeCollection TimeReceived TimeSTOOL SPECIMEN / Cnncfyp9203/23/2025 6:24 PM EDT1 6:24 PM EDT Narrative Authorizing ProviderResult TypeResult StatusChristine M Alexa APNMICROBIOLOGY - GENERAL ORDERABLESFinal ResultPerforming OrganizationAddressCity/State/ZIP CodePhone Number [address] [phone] * (ABNORMAL) Magnesium (03/23/2025 2:24 PM EDT)ComponentValueRef RangeTest MethodAnalysis TimePerformed AtPathologist SignatureMagnesium1.4(L)1.6 - 2.6 mg/dL03/23/2025 2:24 PM EDTMERCY LABORATORIESSpecimen (Source)Anatomical Location / LateralityCollection Method / VolumeCollection TimeReceived Time 03/23/2025 2:24 PM EDT1 2:37 PM EDT Narrative Authorizing ProviderResult TypeResult StatusDilnoor Chloe MDCHEMISTRY ORDERABLES Final ResultPerforming OrganizationAddressty/State/ZIP CodePhone Number [address] [phone] * (ABNORMAL) Basic Metabolic Panel w/ Reflex to MG (03/23/2025 2:24 PM EDT) ComponentValueRef RangeTest MethodAnalysis TimePerformed AtPathologist GbscsvozgIrgsbs874(L)136 - 145 mmol/L1 2:24 PM EDTMERCY LABORATORIES Potassium3.5(L)3.7 - 5.3 mmol/L1 2:24 PM EDTMERCY LABORATORIES Iqtgegtv47(L)98 - 107 mmol/L1 2:24 PM EDTMERCY PPSAWUVZCXLVSG15165 - 31 mmol/L1 2:24 PM EDTMERCY LABORATORIESAnion Cav042 - 16 mmol/L 03/23/2025 2:24 PM EDTMERCY ZCWUDVQXRVEZZvpwtwh3176 - 99 mg/dL03/23/2025 2:24 PM EDTMERCY LABORATORIESBUN5(L)6 [...] ORDERABLES Final ResultPerforming OrganizationAddressCity/State/ZIP CodePhone Number [facility] [address] [place] [address], [facility] [phone] * (ABNORMAL) Protime-INR (03/23/2025 5:20 AM EDT)ComponentValueRef RangeTest MethodAnalysis TimePerformed AtPathologist YpdaeajjmHcughmd43.0(H)11.7 - 14.9 sec03/23/2025 5:20 AM EDTMERCY LABORATORIESINR1.210/04/2025 5:20 AM EDTMERCY LABORATORIESComment: ? Therapeutic Range: Moderate Anticoagulant Intensity: INR = 2.0-3.0 High Anticoagulant Intensity: INR = 2.5-3.5 Specimen (Source)Anatomical Location / LateralityCollection Method / Volume Collection TimeReceived TimeBloodBLOOD SPECIMEN / Hlussem2203/23/2025 5:20 AM EDT 03/23/2025 5:47 AM EDT Narrative Authorizing ProviderResult TypeResult StatusAimee Miester STOCK BLENDER - NPHEMATOLOGY ORDERABLESFinal ResultPerforming OrganizationAddressCity/State/ZIP CodePhone Number zePASS [address] [place] [address], [facility] [phone] * TSH reflex to FT4 (03/23/2025 5:20 AM EDT)ComponentValueRef RangeTest Method Analysis TimePerformed AtPathologist SignatureTSH1.960.27 - 4.20 uIU/mL 03/23/2025 5:20 AM EDTMERCY LABORATORIESSpecimen (Source)Anatomical Location / LateralityCollection Method / VolumeCollection TimeReceived Time03/23/2025 5:20 AM EDT1 5:47 AM EDT Narrative Authorizing ProviderResult TypeResult StatusAimee Miester STOCK BLENDER - NPCHEMISTRY ORDERABLESFinal ResultPerforming OrganizationAddressCity/State/ZIP CodePhone Number zePASS [address] [place] [address], [facility] [phone] * (ABNORMAL) Lipid, Fasting (03/23/2025 5:20 AM EDT)ComponentValueRef RangeTest MethodAnalysis TimePerformed AtPathologist SignatureCholesterol, Xurdabj273(H) 0 - 199 mg/dL03/23/2025 5:20 AM EDTMERCY LABORATORIESComment: Cholesterol Guidelines: <200 Desirable 200-240 ??Borderline >240 Undesirable HDL22(L)>40 mg/dL03/23/2025 5:20 AM EDTMERCY LABORATORIESComment: HDL Guidelines: <40 Undesirable 40-59 ?Borderline >59 Desirable LDL Putrvoqzvvc167(H)0 - 100 mg/dL03/23/2025 5:20 AM EDTMERCY LABORATORIES Comment: LDL Guidelines: <100 Desirable 100-129 ?? Near to/above Desirable 130-159 ?? Borderline >159 Undesirable Direct (measured) LDL and calculated LDL are not interchangeable tests. Chol/HDL Ratio16.3(H)<5.010 5:20 AM EDTMERCY LABORATORIESTriglyceride, Exidehi8584 - 149 mg/dL03/23/2025 5:20 AM EDTMERCY LABORATORIESComment: Triglyceride Guidelines: <150 Desirable 150-199 ??Borderline 200-499 ??High >499 Very high Based on AHA Guidelines for fasting triglyceride, March 2012. PSMW234 - 30 mg/dL03/23/2025 5:20 AM EDTMERCY LABORATORIESSpecimen (Source) Anatomical Location / LateralityCollection Method / VolumeCollection Time Received TimeBloodBLOOD SPECIMEN / Ddbhwcn9703/23/2025 5:20 AM EDT1 5:47 AM EDT Narrative Authorizing ProviderResult TypeResult StatusAimee Miester STOCK BLENDER - NPCHEMISTRY ORDERABLESFinal ResultPerforming OrganizationAddressCity/State/[facility] CodePhone Number zePASS [address] [phone] * (ABNORMAL) CBC auto differential (03/23/2025 5:20 AM EDT)ComponentValueRef RangeTest MethodAnalysis TimePerformed AtPathologist UyruzrslhTDS59.8(H)3.5 - 11.3 k/uL03/23/2025 5:20 AM EDTMERCY LABORATORIESRBC2.07(L)3.95 - 5.11 m/uL 03/23/2025 5:20 AM EDTMERCY LABORATORIESHemoglobin7.8(L)11.9 - 15.1 g/dL 03/23/2025 5:20 AM EDTMERCY RIBXQSTFEWSNThrvteswwc35.1(L)36.3 - 47.1 % 03/23/2025 5:20 AM EDTMERCY FGXDTUQTYXWUCXL268.4(H)82.6 - 102.9 fL03/23/2025 5:20 AM EDTMERCY CZQJYDWRSUUWVMA33.7(H)25.2 - 33.5 pg03/23/2025 5:20 AM EDT [facility]ITALHAULYQOAMXIKDQRUSMFE90.428.4 - 34.8 g/dL03/23/2025 5:20 AM EDTMERCY KIQHFEKETPMBGRS59.7(H)11.8 - 14.4 %03/23/2025 5:20 AM EDTMERCY LABORATORIES Cjaktfkfw422013 - 453 k/uL03/23/2025 5:20 AM EDTMERCY NJKYEKJTVNPARLE54.78.1 - 13.5 fL03/23/2025 5:20 AM EDTMERCY LABORATORIESNRBC [...] - 0.20 k/uL03/23/2025 5:20 AM EDTMERCY LABORATORIESMorphologyMACROCYTOSIS ACZJDAF23/04/2025 5:20 AM EDTMERCY LABORATORIESMorphologyANISOCYTOSIS OPNOASW0203/23/2025 5:20 AM EDTMERCY LABORATORIESSpecimen (Source)Anatomical Location / LateralityCollection Method / VolumeCollection TimeReceived Time03/23/2025 5:20 AM EDT1 5:47 AM EDT Narrative Authorizing ProviderResult TypeResult StatusAimee Miester STOCK BLENDER - NPHEMATOLOGY ORDERABLESFinal ResultPerforming OrganizationAddressCity/State/[place] [address], [facility] [phone] * Phosphorus (03/23/2025 5:20 AM EDT)ComponentValueRef RangeTest MethodAnalysis TimePerformed AtPathologist SignaturePhosphorus2.82.5 - 4.5 mg/dL03/23/2025 5:20 AM EDTMERCY LABORATORIESSpecimen (Source)Anatomical Location / Laterality Collection Method / VolumeCollection TimeReceived Time03/23/2025 5:20 AM EDT 03/23/2025 5:47 AM EDT Narrative Authorizing ProviderResult TypeResult StatusAimee Miester STOCK BLENDER - NPCHEMISTRY ORDERABLESFinal ResultPerforming OrganizationAddressCity/State/[place] [address], [facility] [phone] * (ABNORMAL) Magnesium (03/23/2025 5:20 AM EDT)ComponentValueRef RangeTest MethodAnalysis TimePerformed AtPathologist SignatureMagnesium1.2(L)1.6 - 2.6 mg/dL03/23/2025 5:20 AM EDTMERCY LABORATORIESSpecimen (Source)Anatomical Location / LateralityCollection Method / VolumeCollection TimeReceived Time 03/23/2025 5:20 AM EDT1 5:47 AM EDT Narrative Authorizing ProviderResult TypeResult StatusAimee Miester STOCK BLENDER - NPCHEMISTRY ORDERABLESFinal ResultPerforming OrganizationAddressty/State/[place] [address], [facility] [phone] * (ABNORMAL) Comprehensive Metabolic Panel w/ Reflex to MG (03/23/2025 5:20 AM EDT)ComponentValueRef RangeTest MethodAnalysis TimePerformed AtPathologist CujwgbgyzEduukc068(L)136 - 145 mmol/L1 5:20 AM EDTMERCY LABORATORIES Potassium2.8(LL)3.7 - 5.3 mmol/L1 5:20 AM EDTMERCY LABORATORIES Jzqumesw91(L)98 - 107 mmol/L1 5:20 AM EDTMERCY SBDJZPMKQKEAII24274 - 31 mmol/L1 5:20 AM EDTMERCY LABORATORIESAnion Mlh636 - 16 mmol/L 03/23/2025 5:20 AM EDTMERCY FIMQVSAAOJDKWyfxqet4398 - 99 mg/dL03/23/2025 5:20 AM EDTMERCY LEJYOGZWCIMJKGD57 - 20 mg/dL03/23/2025 5:20 AM EDTMERCY LABORATORIESCreatinine0.4(L)0.6 [...] - 1.2 mg/dL03/23/2025 5:20 AM EDTMERCY LABORATORIESAlkaline Wupyzwaxsab408(H)35 - 104 U/L1 5:20 AM EDTMERCY SFQIMMSKDNJQYCY70(H)10 - 35 U/L1 5:20 AM EDTMERCY BUWARAUXKTAITOX881(H)10 - 35 U/L1 5:20 AM EDTMERCY LABORATORIESSpecimen (Source)Anatomical Location / LateralityCollection Method / VolumeCollection TimeReceived Time03/23/2025 5:20 AM EDT1 5:47 AM EDT Narrative Authorizing ProviderResult TypeResult StatusAimee Miester STOCK BLENDER - NPCHEMISTRY ORDERABLESFinal ResultPerforming OrganizationAddressCity/State/ZIP CodePhone Number zePASS [address] [place] [address] * (ABNORMAL) Lipase (03/22/2025 9:34 PM EDT)ComponentValueRef RangeTest Method Analysis TimePerformed AtPathologist GrycpmbtoZqxhke70(L)13 - 60 U/L1 9:34 PM EDTMERCY LABORATORIESSpecimen (Source)Anatomical Location / LateralityCollection Method / VolumeCollection TimeReceived TimeBLOOD SPECIMEN / Aktyrgg9603/22/2025 9:34 PM EDT1 9:36 PM EDT Narrative Authorizing ProviderResult TypeResult StatusAimee Miester STOCK BLENDER - NPCHEMISTRY ORDERABLESFinal ResultPerforming OrganizationAddressCity/State/ZIP CodePhone Number zePASS [address] [place] [address], [facility] [phone] documented in this encounter Visit Diagnoses Diagnosis [...] polyp of ascending colon Hypotension Hypotension, unspecified Acute cholecystitis documented in this encounter Admitting Diagnoses Diagnosis Acute cholecystitis documented in this encounter Administered Medications Medication OrderMAR ActionAction DateDoseRateSite acetaminophen (TYLENOL) suppository 650 mg 650 mg, Rectal, EVERY 6 HOURS PRN, Starting on Tue03/22/25 at 1928, Until Tue03/31/25 at 1910, Pain Mild (1-3) OR per patient request for pain score (4-10), Fever, For temp greater than 100.4 F (38C), Administer if oral route cannot be used. acetaminophen (TYLENOL) tablet 650 mg 650 mg, Oral, EVERY 6 HOURS PRN, Starting on Tue03/22/25 at 1928, Until Tue03/31/25 at 1910, PainMild (1-3) OR [...] on 03/23/25 at 1947, Until Tue03/31/25 at 191, Indigestion Given03/27/2025 10:18 AM EDT30 mLs bisacodyl (DULCOLAX) suppository 10 mg 10 mg, Rectal, DAILY PRN, Starting on Tue03/27/25 at 1848, Until Tue03/31/25 at 1910, Constipation Given03/27/2025 6:50 PM EDT10 mg BUPivacaine-EPINEPHrine PF (MARCAINE-w/EPINEPHrine) 0.5% -1:130180 injection PRN, Starting on Tue03/29/25 at 1026, Until Tue03/29/25 at 1150, Intra-op Given03/29/2025 10:26 AM EDT30 mLs calcium carbonate (TUMS) chewable tablet 500 mg 500 mg, Oral, 3 TIMES DAILY PRN, Starting on 03/23/25 at 1946, Until 03/31/25 at 1911, Heartburn Given03/24/2025 2:47 PM KDA887 fyKjkqc7103/23/2025 7:56 PM MWP939 mg HYDROmorphone (DILAUDID) injection 0.25 mg 0.25 [...] respiratory rate <12b/m Given03/30/2025 7:59 AM EDT0.25 iyHojbz3103/29/2025 6:15 AM EDT0.25 mgGiven 03/28/2025 11:29 PM [...] mg/dL 4,000 mg Total Dose Given as 1,000 mg IVPB x 4 doses or 2,000 mg IVPB x 2 doses <1.0 mg/dL CALL PHYSICIAN and give 4,000 mg Total Dose Given as 1,000 mg IVPB x 4 doses or 2,000 mg IVPB x 2 doses Infuse at 1,000 mg/hr consecutively Repeat Mag level next AM Protocol not for use in Patients with CrCl<30ml/min Rate/Dose Rnrspe1003/25/2025 2:13 PM EDT25 mL/hrNew Bag03/25/2025 1:08 PM EDT2,000 mg25 mL/hr melatonin tablet 10 mg 10 mg, Oral, NIGHTLY PRN, Starting on Tue03/22/25 at 2016, Until Tue03/31/25 at 191, sleep Given03/30/2025 9:14 PM EDT10 eqPqriz4003/29/2025 10:15 PM EDT10 keRibgx0203/28/2025 11:29 PM EDT10 mg metroNIDAZOLE (METROCREAM) 0.75 % cream Topical, 2 TIMES DAILY, First dose on Tue03/24/25 at 2100, Apply to face . Given03/31/2025 10:07 AM UOLFxqlnAuuoi19/18/2025 8:11 PM HMADpcsaQhimp28/18/2025 8:08 AM EDTOther midodrine (PROAMATINE) tablet 10 mg 10 mg, Oral, 3 TIMES DAILY WITH MEALS, First dose (after last modification) on Tue03/25/25 at 1200, Until Discontinued, Do not give after 1800 or within 4 hrs of bedtime. Hold if SBP>130 Given03/30/2025 1:05 PM EDT10 ybXxxbo5603/29/2025 4:23 PM EDT10 vuZeksc3003/29/2025 7:49 AM EDT10 mg ondansetron (ZOFRAN) injection 4 mg 4 mg, IntraVENous, EVERY 6 HOURS PRN, Starting on Tue03/22/25 at 1928, Until Tue03/31/25 at 191,Nausea, Vomiting, Administer if oral route cannot be used. ondansetron (ZOFRAN-ODT) disintegrating tablet 4 mg 4 mg, Oral, EVERY 8 HOURS PRN, Starting on Tue03/22/25 at 1928, Until Tue03/31/25 at 191, Nausea, Vomiting Given03/29/2025 1:30 PM EDT4 uhPahks3003/22/2025 8:31 PM EDT4 mg oxyCODONE-acetaminophen (PERCOCET) 5-325 MG per tablet 1 tablet 1 tablet, Oral, EVERY 4 HOURS PRN, Starting on Tue03/26/25 at 1204, Until Tue03/31/25 at 191, Pain Severe (7-10), Maximum dose of acetaminophen is 4000 mg from all sources in 24 hours. Given03/31/2025 1:06 PM EDT1 soaxwkBlgqm19/19/2025 6:19 AM EDT1 tabletGiven 03/31/2025 1:38 AM EDT1 tablet pantoprazole (PROTONIX) 40 mg in sodium chloride (PF) 0.9 % 10 mL injection 40 mg, IntraVENous, DAILY, First dose on Tue03/22/25 at 2045, Reconstitute each 40 mg vial with 10mL of 0.9% sodium chloride and administer each 40 mg vial over at least 2 minutes. Given03/31/2025 9:58 AM EDT40 tsSgfsb0003/30/2025 7:59 AM EDT40 ssCosrv9603/29/2025 7:49 AM EDT40 mg polyethylene glycol (GLYCOLAX) [...] half swallowed separately. Given03/31/2025 9:58 AM EDT20 oFtBvygt83/18/2025 7:59 AM EDT20 mEqGiven 03/28/2025 9:17 AM [...] Tue03/22/25 at 192, Until Tue03/31/25 at 191, at 100 mL/hr, [...] with CrCl less than 30 mL/min. Rate/Dose Ovlrmd6003/28/2025 4:15 PM SZK912 mL/hrRate/Dose Gvkkxl7203/27/2025 10:49 AM HRV682 mL/hrNew Bag03/25/2025 9:10 PM EDT10 vGk477 mL/hr rOPINIRole (REQUIP) tablet 0.25 mg 0.25 mg, Oral, NIGHTLY PRN, Starting on Tue03/22/25 at 2016, Until Tue03/31/25 at 1910, Restless legs Given03/30/2025 9:14 PM EDT0.25 ewIkntv1203/29/2025 10:15 PM EDT0.25 mgGiven 03/28/2025 11:29 PM EDT0.25 mg sod chloride IRR soln 0.9 % irrigation CONTINUOUS PRN, Starting on Tue03/29/25 at 0945, Intra-op New Bag03/29/2025 11:36 AM EDT1,000 mLsNew Bag03/29/2025 10:45 AM EDT1,000 mLs New Bag03/29/2025 9:45 AM EDT1,000 mLs sodium chloride flush 0.9 % injection 10 [...] = 20 mL/lumen Given03/31/2025 10:01 AM EDT10 sNhParkc84/18/2025 8:11 PM EDT10 mLsGiven 03/30/2025 8:00 AM [...] 0846 (Unheld by provider - Provider: Mini Tracy, DO) * 1101 (Not Given - [...] RN) * 0839 (MAR Hold - Provider: [facility] - Reason: Unreviewed Transfer [...] (AUG Unhold - Provider: Didi Gipson, MARIAJOSE) pantoprazole (PROTONIX) 40 mg in sodium chloride (PF) 0.9 % 10 mL injection 40 mg, IntraVENous, DAILY, First dose on Tue03/22/25 at 2045, Reconstitute each 40 mg vial with 10mL of 0.9% sodium chloride and administer each 40 mg vial over at least 2 minutes. * 0749 (Given - Provider: Didi Gipson RN) * 0839 (AUG Hold - Provider: [facility] [employer] - Reason: Unreviewed Transfer [...] * 0411 (New Bag - Provider: Giovanny El RN) * 0811 (Stopped - Provider: Didi Gipson RN) * 0839 (AUG Hold - Provider: [facility] [employer] - Reason: Unreviewed Transfer Orders) * 1023 (Canceled Entry - Provider: Carmela Lopez APRN - FINGER COBBLER) * 1200 (Not Given - Provider: Didi Gipson RN - Reason: Other - Comment: given in or) * 1325 (AUG Unhold - Provider: Didi Gipson RN) * 2050 (New Bag - Provider: Stacey Chandra RN) * 0052 (Stopped - Provider: Anjelia Kamar, RN) * 0213 (Stopped - Provider: Stacey Chandra RN) * 0358 (New Bag - Provider: [...] NPO) * 0839 (MAR Hold - Provider: Mar [employer] - Reason: Unreviewed Transfer Orders) * 1325 (MAR Unhold - Provider: Didi Gipson RN) * 0759 (Given - Provider: Chan Galvin RN) * 0958 (Given - Provider: Chan Galvin, MARIAJOSE) potassium chloride (KLOR-CON M) extended release tablet [...] - Provider: Didi Gipson, RN) * 0839 ([facility] Hold - Provider: [facility] [employer] - Reason: Unreviewed Transfer Orders) * 1325 ([facility] Unhold - Provider: Didi Gipson, [...] into rate field of order. * 0839 ([facility] Hold - Provider: [facility] [employer] - Reason: Unreviewed Transfer Orders) * 1325 ([facility] Unhold - Provider: Didi Gipson, MARIAJOSE) acetaminophen (TYLENOL) suppository 650 mg(Linked Group 1) 650 mg, Rectal, EVERY 6 HOURS PRN, Starting on Tue03/22/25 at 1928, Until Tue03/31/25 at 1911, Pain Mild (1-3) OR per patient request for pain score (4-10), Fever, For temp greater than 100.4 F (38C), Administer if oral route cannot be used. * 0839 ([facility] Hold - Provider: [facility] [employer] - Reason: Unreviewed Transfer Orders) * 1325 ([facility] Unhold - Provider: Didi Gipson, MARIAJOSE) acetaminophen (TYLENOL) tablet 650 mg(Linked Group 1) 650 mg, Oral, EVERY 6 HOURS PRN, Starting on 03/22/25 at 1928, Until 03/31/25 at 1911, PainMild (1-3) OR per patient request for pain score (4-10), Fever, For temp greater than 100.4 F (38 C), Maximum dose of acetaminophen is 4000 mg from all sources in 24 hours. * 0839 ([facility] Hold - Provider: [facility] [employer] - Reason: Unreviewed Transfer Orders) * 1325 ([facility] Unhold - Provider: Didi Gipson RN) ALPRAZolam [...] Until 03/31/25 at 1911, Indigestion * 0839 ([facility] Hold - Provider: [facility] [employer] - Reason: Unreviewed Transfer Orders) * 1325 ([facility] Unhold - Provider: Didi Gipson, MARIAJOSE) bisacodyl (DULCOLAX) suppository 10 mg 10 mg, Rectal, DAILY PRN, Starting on 03/27/25 at 1848, Until 03/31/25 at 1911, Constipation * 0839 ([facility] Hold - Provider: [facility] [employer] - Reason: Unreviewed Transfer Orders) * 1325 ([facility] Unhold - Provider: Didi Gipson RN) BUPivacaine-EPINEPHrine PF (MARCAINE-w/EPINEPHrine) 0.5% -1:412385 injection (CANCELED) PRN, Starting on Tue03/29/25 at 1026, Until Tue03/29/25 at 1150, Intra-op * 1026 (Given - Provider: Manjula Sue MD - Comment: INJECTED AT LAP SITES) calcium carbonate (TUMS) chewable tablet 500 mg 500 mg, Oral, 3 TIMES DAILY PRN, Starting on 03/23/25 at 1946, Until 03/31/25 at 1911, Heartburn * 0839 (AUG Hold - Provider: [facility] [employer] - Reason: Unreviewed Transfer Orders) * 1325 ([facility] Unhold - Provider: Didi Gipson, MARIAJOSE) HYDROmorphone [...] - Provider: Giovanny El RN) * 0839 (MAR Hold - Provider: [facility] [employer] - Reason: Unreviewed Transfer Orders) * 1325 ([facility] Unhold - Provider: Didi Gipson, [...] use in Patients with CrCl<30ml/min * 0839 ([facility] Hold - Provider: Lacey [employer]ohold - Reason: Unreviewed Transfer Orders) * 1325 ([facility] Unhold - Provider: Didi Gipson, RN) melatonin tablet 10 mg 10 mg, Oral, NIGHTLY PRN, Starting on Tue03/22/25 at 2016, Until 03/31/25 at 1911, sleep * 0839 ([facility] Hold - Provider: [facility] [employer]old - Reason: Unreviewed Transfer Orders) * 1325 ([facility] Unhold - Provider: Didi Gipson, MARIAJOSE) * 2215 (Given - Provider: Stacey Chandra, [...] oral route cannot be used. * 0839 ([facility] Hold - Provider: Lacey Autohold - Reason: Unreviewed Transfer Orders) * 1325 ([facility] Unhold - Provider: Didi Gipson, RN) * 1330 (See Alternative - Provider: Didi Gipson, RN) ondansetron (ZOFRAN-ODT) disintegrating tablet 4 mg(Linked Group 2) 4 mg, Oral, EVERY 8 HOURS PRN, Starting on Tue03/22/25 at 1928, Until Tue03/31/25 at 191, Nausea, Vomiting * 0839 ([facility] Hold - Provider: [facility] Autohold - Reason: Unreviewed Transfer Orders) * 1325 ([facility] Unhold - Provider: Didi Gipson, RN) * 1330 (Given - Provider: Didi Gipson, RN) oxyCODONE-acetaminophen (PERCOCET) 5-325 MG per tablet 1 tablet 1 tablet, Oral, EVERY 4 HOURS PRN, Starting on Tue03/26/25 at 1204, Until Tue03/31/25 at 191, Pain Severe (7-10), Maximum dose of acetaminophen is 4000 mg from all sources in 24 hours. * 0839 ([facility] Hold - Provider: [facility] - Reason: Unreviewed Transfer Orders) * 1325 ([facility] Unhold - Provider: Didi Gipson, RN) * 1330 (Given - Provider: Didi Gipson, MARIAJOSE) * 1821 (Given - Provider: Didi Gipson, MARIAJOSE) * 2216 (Given - Provider: Stacey Chandra, RN) * 0603 (Given - Provider: Stacey Chandra, RN) * 1127 (Given - Provider: Chan Galvin, RN) * 1700 (Given - Provider: hCan Galvin, RN) * 2114 (Given - Provider: [...] dilute ifGI adverse effects occur. * 0839 ([facility] Hold - Provider: [facility] - Reason: Unreviewed Transfer Orders) * 1325 ([facility] Unhold - Provider: Didi Gipson [...] and each half swallowed separately. * 0839 ([facility] Hold - Provider: [facility] - Reason: Unreviewed Transfer Orders) * 1325 ([facility] Unhold - Provider: Didi Gipson [...] CrCl less than 30 mL/min. * 0839 ([facility] Hold - Provider: [facility] - Reason: Unreviewed Transfer Orders) * 1325 ([facility] Unhold - Provider: Didi Gipson, RN) rOPINIRole (REQUIP) tablet 0.25 mg 0.25 mg, Oral, NIGHTLY PRN, Starting on Tue03/22/25 at 2016, Until 03/31/25 at 1911, Restless legs * 0839 ([facility] Hold - Provider: [facility] - Reason: Unreviewed Transfer Orders) * 1325 ([facility] Unhold - Provider: Didi Gipson, MARIAJOSE) * 2215 (Given - Provider: Stacey Chandra, RN) * 2114 (Given - Provider: Stacey Chandra, RN) sod chloride IRR soln 0.9 % irrigation (CANCELED) CONTINUOUS PRN, Starting on Tue03/29/25 at 0945, Intra-op * 0945 (New Bag - Provider: Manjula Sue MD - Comment: POURED TO BACK TABLE) * 1045 (New Bag - Provider: Manjula Sue MD - Comment: HANGING FOR SUCTION CABLE TV INSTALLER) * 1136 (New Bag - Provider: Manjula Sue MD - Comment: HANGING) * 1150 (Stopped - Provider: Didi Gipson, MARIAJOSE - Comment: [Order ends at this time. Document the following action when infusion is complete: Stopped]) sodium chloride flush 0.9 % injection 10 mL 10 mL, IntraVENous, PRN, Starting on Tue03/22/25 at 1928, Until Tue03/31/25 at 1911, Line Care, After every IV line use * 0839 ([facility] Hold - Provider: [facility] - Reason: Unreviewed Transfer Orders) * 1325 ([facility] Unhold - Provider: Didi Gipson, MARIAJOSE) sodium chloride flush 0.9 % injection 10 mL 10 mL, IntraVENous, PRN, Starting on Tue03/24/25 at 0855, Until Tue03/31/25 at 1911, Line Care * 0839 ([facility] Hold - Provider: [facility] - Reason: Unreviewed Transfer Orders) * 1325 ([facility] Unhold - Provider: Didi Gipson, [...] on Tue03/22/25 at 1927, Until Tue03/31/25 at 1911, Per Potassium Replacement Protocol, Administer [...] MemberRelationshipSpecialtyStart DateEnd Date Sudhir Gonzalez MD [address] [place] [address] PCP - GeneralFamily Dweratgz50/10/25documented as of this encounter
--- OUTSIDE RECORDS SUMMARY | 2025-04-08 09:40 | XMS_ITS | Encounter Summary ---
Author Organization [facility] Address [address], [address] [place] [address] Care Team Providers Care Epic Application Coordinator Name Role Phone Sudhir Gonzalez MD Primary Care Provider [phone] Reason for Visit * ReasonOnset DateCommentsegd/colon03/25/2025Egd/colon Encounter Details DateTypeDepartmentCare Team (Latest Contact Info)Zngpjzoztqe26/13/2025Telephone [facility] [address] [place] [address] Dimas Andujar MD [address] [place] [address] egd/colon (Egd/colon ) Social History Tobacco UseTypesPacks/DayYears UsedDateSmoking Tobacco: Every XrwAlhfdcfsyd678.4 Started: 11/1995Alcohol UseStandard Drinks/WeekCommentsYes3 (1 standard drink [...] were you homeless or living in a half-way (including now)?No 03/22/2025Hunger Vital SignAnswerDate RecordedWithin the past 12 months, you worried that your food would run out before you got the money to buymore.Often true10/10/2025Within the past 12 months, the food you [...] Domain Source: IP Abuse ScreeningAnswerDate Recorded Physical gwwopRvfkdv41/13/2025Verbal bzvdtEowdff97/13/2025Emotional abuseDenies 03/25/2025Financial ligvzOyukcx22/13/2025Sexual dvlvxItvuwb97/13/2025 CommentsUnknownSex and Gender InformationValueDate RecordedSex Assigned at Not on fileLegal PhvKxnwhv90/10/2025 3:15 PM EDTGender IdentityNot on fileSexual OrientationNot on filedocumented as of this encounter Plan of Treatment Not on file documented as of this encounter Visit Diagnoses Not on filedocumented in this encounter Additional Health Concerns InfectionOnset DateLast IndicatedResolved TimeC-diff Rule Out03/23/2025 8:39 AM EDTdocumented as of this encounter Care Teams Team MemberRelationshipSpecialtyStart DateEnd Date Sudhir Gonzalez MD [address] [place] [address] PCP - GeneralFamily Zedqbusq23/10/25documented as of this encounter
--- OUTSIDE RECORDS SUMMARY | 2025-04-08 09:41 | XMS_ITS | Clinical Summary ---
Author Organization [employer] Address [id number] [place] [address] Care Team Providers Care Bill Board Poster Name Role Phone No Pcp, No Pcp Primary Care Provider Unavailabl e Allergies Active AllergyReactionsCriticalityNoted YgcgYcjoeotpYzwjgessPyzbEnk16/22/2024 Medications MedicationSigDispense QuantityRefillsLast FilledStart DateEnd DateStatus LORazepam (ATIVAN) 1 mg tablet Take 1 tablet (1 mg total) by mouth every 6 (six) hours as needed (etoh withdraw). 2mg tablet x10 tablets, then 1mg tablet x2 tablets.Active diphenhydrAMINE (BENADRYL) 25 mg capsule Take 1 capsule (25 mg total) by mouth nightly as needed for sleep.Active cetirizine (ZyrTEC) 10 mg tablet Take 1 tablet (10 mg total) by mouth in the morning.Active rOPINIRole (REQUIP) 0.5 mg tablet Take 1 tablet (0.5 mg total) by mouth nightly.Active tamoxifen (NOLVADEX) 10 mg chemo tablet Take 1 tablet by mouth dailyActive levETIRAcetam (KEPPRA) 250 mg tablet Take 1 tablet (250 mg total) by mouth in the morning and 1 tablet (250 mg total) before bedtime.Active omeprazole (PriLOSEC) 20 mg capsule Take 1 capsule (20 mg total) by mouth in the morning.Active Social History Tobacco UseTypesPacks/DayYears UsedDateSmoking Tobacco: Every DayCigarettes Smokeless Tobacco: Never Tobacco Cessation:Ready to Q uit: Not Asked; Counseling Given: Not Answered Alcohol UseStandard Drinks/WeekCommentsNot Pjczayshl34 (1 standard drink = 0.6 oz pure alcohol)[facility] ScreeningAnswer Date RecordedWithin the past 12 months we worried whether our food would run out before we got money to buy more.Never True03/04/2024Within the past 12 months the food we bought just didn't last and we didn't have money to get more.Never True03/04/2024CommentsUnknownSex and Gender InformationValueDate RecordedSex Assigned at BirthNot on fileLegal EwoNbtibc70/22/2024 4:35 PM EDT Gender IdentityNot on fileSexual OrientationNot on file Last Filed Vital Signs Vital SignReadingTime TakenCommentsBlood Exnkhnno36/47003/04/2024 8:09 PM EDT Vmzph169603/04/2024 8:09 PM YUQRskrdcftcce25.5 ??C (97.7 ??F)03/04/2024 4:57 PM EDTRespiratory Vnuz172203/04/2024 8:09 PM EDTOxygen Sekgtbdeeq266%03/04/2024 8:09 PM EDTInhaled Oxygen Concentration--Tgxnqh68.7 kg (125 lb)03/04/2024 4:40 PM EDT Vrsusz402.2 cm (5' 7 )03/04/2024 4:40 PM EDTBody Mass Index19.58003/04/2024 4:40 PM EDT Plan of Treatment Health MaintenanceDue DateLast DoneCommentsDepression Gplkqlsaa60/15/1987 DTaP,Tdap and Td Vaccines (1 - Tdap)1994Pap Smear1996Influenza Frmpwnw76/01/2025Adult BMI Lzbeahqjz77Tobacco Screening Medical Devices Not on file Insurance Care Teams Team MemberRelationshipSpecialtyStart DateEnd Date No [place], [place] [address] PCP - [facility]03/04/24
--- OUTSIDE RECORDS SUMMARY | 2025-04-08 09:41 | XMS_ITS | Clinical Summary ---
Author Organization [facility] Address [address], [address] [place] [address] Care Team Providers Care Enterprise Application Analyst Name Role Phone Sudhir Gonzalez MD Primary Care Provider [phone] Allergies Active AllergyReactionsCriticalityNoted QyeyJuwwqkrlAezpoxjfRvofRcc76/17/2025 Patient reports rash and redness to bilateral hands and arms after receiving. Medications MedicationSigDispense QuantityRefillsLast FilledStart DateEnd DateStatus melatonin 10 MG CAPS capsule Take 1 capsule by mouth nightly as needed (sleep)5Active pantoprazole (PROTONIX) 40 MG tablet Take 1 tablet by mouth daily5Active rOPINIRole (REQUIP) 0.25 MG tablet Take 1 tablet by mouth jdhphcu98/31/2025Active midodrine (PROAMATINE) 5 MG tablet Take 1 tablet by mouth 3 times daily as needed (if SBP<100) 30 tablet 5Active oxyCODONE-acetaminophen (PERCOCET) 5-325 MG per tablet Indications:Common bile duct stricture (HCC)Take 1 tablet by mouth every 4 hours as needed for Pain for up to 5 days. Max Daily Amount: 6 tablets 15 tablet Expired Active Problems ProblemNoted DateDiagnosed BlfxDjejiskmykb00/14/2025Gastritis without bleeding 03/25/2025denomatous polyp of ascending colon03/25/2025ute cholecystitis 03/22/2025symptomatic microscopic wajwwozqm17/10/2025History of breast cancer 03/22/2025Restless legs03/22/2025Tobacco user03/22/20257452Mqsmiune45/10/2025 Ridjwhjfbuno14/10/7309Rbxlcopl78/10/2025Hepatic /10/2025ommon bile duct iguzwcdrpc75/10/2025Unintended weight loss03/22/2025Daily consumption of nsawmdz0903/22/2025Generalized abdominal pain03/22/2025 Encounters DateTypeDepartmentCare MrbyJhugpemzuuc66/17/2025 10:00 AM EDT - 03/29/2025 12:00 PM EDTSurgery [facility] OR [address] [place] [address] 24634 Manjula Sue MD ROBOTIC LAPAROSCOPIC PIVJPPPELYLGHFQ09/17/2025 9:57 AM EDTAnesthesia Event [facility] OR [address] [place] [address] 03486 Vik Veras MD Grant, Amy M, BEAN DUMPER - MANAGER OF COMPENSATION 03/29/2025Telephone [facility] Gastroenterology [address] [place] [address] 32081 Arnold Harper MD Procedure (EUS/ERCP/Leroy)03/26/2025 3:55 PM EDTAnesthesia Event [facility] Endoscopy [address] [place] [address] 03149 Dianne Galeana MD 03/26/2025 3:30 PM EDT - 03/26/2025 5:30 PM EDTSurgery [facility] Endoscopy [address] [place] [address] 23026 Arnold Harper MD ENDOSCOPIC RETROGRADE CHOLANGIOPANCREATOGRAPHY STENT ABUYBCDTH48/13/2025 9:39 AM EDTAnesthesia Event [facility] Endoscopy [address] [place] [address] 29153 Dianne Galeana MD 03/25/2025 9:24 AM EDT - 03/25/2025 10:12 AM EDTSurgery [facility] Endoscopy [address] [place] [address] 55579 Dimas Andujar MD ESOPHAGOGASTRODUODENOSCOPY QOPANO1603/25/2025Telephone [facility] Gastroenterology [address] [place] [id number] Dimas Andujar MD egd/colon (Egd/colon )03/22/2025 7:27 PM EDT - 03/31/2025 5:11 PM EDTHospital Encounter MARK 5A Stepdown [address] [place] [address] Pauly Keane MD Patti, Dilnoor, MD Al-Hurani, Bayan Tayseer, MD Hypotension, unspecified hypotension type (Primary Dx); Anemia, unspecified type; Common bile duct stricture (HCC); Acute cholecystitis Discharge Disposition: Home or Self Care03/22/2025Travelfrom Last 3 Months Social History Tobacco UseTypesPacks/DayYears UsedDateSmoking Tobacco: Every DulCvkhhifpbz530.4 Started: 11/1995 Tobacco Cessation:Ready to Q uit: [...] were you homeless or living in a prison (including now)?No03/22/2025 Hunger Vital SignAnswerDate RecordedWithin the [...] Safety Domain Source: IP Abuse ScreeningAnswerDate RecordedPhysical yoypjJdglxq55/13/2025Verbal abuseDenies 03/25/2025Emotional frmbyTasfup09/13/2025Financial qvmwrVabnkj21/13/2025Sexual kfiagUzppeo11/13/2025CommentsUnknownSex and Gender InformationValueDate RecordedSex Assigned at BirthNot on fileLegal LtwMuyfnh02/10/2025 3:15 PM EDT Gender IdentityNot on fileSexual OrientationNot on file Last Filed Vital Signs Vital SignReadingTime TakenCommentsBlood Nlfktcmr006/7503/31/2025 1:06 PM EDT Fslhf292303/31/2025 1:06 PM SYZZtyfxctayru72.7 ??C (98.1 ??F)03/31/2025 11:30 AM EDTRespiratory Oegj6654 1:06 PM EDTOxygen Csaodufyix758%03/31/2025 11:30 AM EDTInhaled Oxygen Concentration--Wvhfuk96.1 kg (119 lb 4.3 oz)03/22/2025 7:31 PM YRBSpoxcg419.2 cm (5' 7.01 )03/26/2025 11:37 AM EDTBody Mass Index18.68 03/22/2025 7:31 PM EDT Plan of Treatment Health MaintenanceDue DateLast DoneCommentsDepression Shqabl8505/27/1987HIV screen 1990Hepatitis C ptkcuq0205/27/1993DTaP/Tdap/Td vaccine (1 - Tdap)1994 Hepatitis B vaccine (1 of 3 - 19+ 3-dose series)1994Pneumococcal 0-49 years Vaccine (1 of 2 - PCV)1994Pap smear1996Cervical cancer screen 2005HPV (without or with Pap)2005FIT/FOBT: Average risk2020 Fecal-DNA (Cologuard): Average risk2020Sigmoidoscopy/CT colonography 2020Breast cancer boqsck81/01/2021, 05/01/2019, 05/01/2019Flu vaccine (#1)01/11/2025OVID-19 Vaccine (2024- season)505/08/2020, 8572Ephxaf42olonoscopy/, 03/25/2025 Colorectal Cancer Lbzqkx0003/25/2035Hepatitis A vaccineAged OutNo longer eligible based on patient's age to complete this topicHib vaccineAged OutNo longer eligible based on patient's age to complete this topicMeningococcal (ACWY) vaccineAged OutNo longer eligible based on patient's age to complete this topic Meningococcal B vaccineAged OutNo longer eligible based on patient's age to complete this topicPolio vaccineAged OutNo longer eligible based on patient's age to complete this topic Medical Devices ImplantedTypeAreaManufacturerDevice IdentifierShelf Expiration DateModel / Serial / LotStent Pancreas 3cm 5fr Pgtl No Ld Dawn Trailing [id number] - [id number] Implanted:Qty: 1 on 03/26/2025 by Arnold Harper MD at [facility] SCIENTIFIC-[id number]/28/[id number] / / [id number]:PD stentStent Bili 10fr L7cm Plas Duodenal Bend Rap Exchg Preld - [id number] Implanted:Qty: 1 on 03/26/2025 by Arnold Harper MD at [facility] SCIENTIFIC-[id number]/07/2027 [id number] / / [id number] Int L Polymer Memo Lig Hem O Memo (6ea/Pk) - [id number] Implanted:Qty: 1 on 03/29/2025 by Manjula Sue MD at [facility] MEDICAL-[id number]/01/[id number] / / [id number] Int L Polymer Memo Lig Hem O Memo (6ea/Pk) - [id number] Implanted:Qty: 1 on 03/29/2025 by Manjula Sue MD at [facility] MEDICAL-[id number]/01/[id number] / / [id number] Procedures Procedure NamePriorityDate/TimeAssociated DiagnosisCommentsBASIC METABOLIC PANEL W/ REFLEX TO MG FOR LOW TVrjlzfo22/19/2025 5:29 AM EDT CBC WITH AUTO EOFGSLXFLUQJLitdtqj75/19/2025 5:29 AM EDT HEPATIC FUNCTION NPIPHJvqnoen67/19/2025 5:29 AM EDT TUICCGTNOHmubewm50/18/2025 6:26 AM EDT LWNJQHKUJYFUPktskap52/18/2025 6:26 AM EDT TFNScnucts53/18/2025 6:26 AM EDT BASIC METABOLIC PANEL W/ REFLEX TO MG FOR LOW SNojwtnd39/18/2025 6:26 AM EDT HEPATIC FUNCTION SUKFLRxrqyhw36/18/2025 6:26 AM EDT [place] LAPAROSCOPY SURG LWYPCXRYIHKWDDV65/17/2025 9:57 AM EDT Acute cholecystitis Special Needs MINI TRACY-RESIDENT. QOPSxubqld06/17/2025 6:24 AM EDT BASIC METABOLIC PANEL W/ REFLEX TO MG FOR LOW COjjlvho14/17/2025 6:24 AM EDT HEPATIC FUNCTION ZVDUMMbrbisr78/17/2025 6:24 AM EDT SURGICAL PATHOLOGY DYXRYIEaxanyg34/17/2025 12:00 AM EDT HEPATIC FUNCTION VKUMAYhvynos50/16/2025 4:26 AM EDT XR ABDOMEN (KUB) (SINGLE AP VIEW)Tegwmpk0003/27/2025 3:36 PM EDT PREVIOUS WXLBAGOWAUJR53/15/2025 2:55 PM EDTCOMPREHENSIVE METABOLIC PANEL W/ REFLEX TO MG FOR LOW KSTAT1 2:55 PM EDT ECHO (TTE) LCGHWZOFUkthddi98/15/2025 11:55 AM EDT Hypotension, unspecified hypotension type GYDCxdltnj99/15/2025 11:26 AM EDT US GI ENDOSCOPIC S&WGyjqnqi91/14/2025 11:44 PM EDT FLUORO FOR SURGICAL LXUBRRWVGXQqnkglz41/14/2025 6:17 PM EDT CYTOLOGY, NON-TPETqbdvrz18/14/2025 4:28 PM EDT Common bile duct stricture (HCC) ENDOSCOPIC RETROGRADE CHOLANGIOPANCREATOGRAPHY SPHINCTER/IRRDUKEAIDR61/14/2025 3:55 PM EDT Common bile duct stricture (HCC) Special Needs IVETH-GI. ESOPHAGOGASTRODUODENOSCOPY XWSDNY1103/26/2025 3:55 PM EDT Common bile duct stricture (HCC) Special Needs IVETH-GI. ESOPHAGOGASTRODUODENOSCOPY ENDOSCOPIC ULTRASOUND FINE NEEDLE ASPIRATION 03/26/2025 3:55 PM EDT Common bile duct stricture (HCC) Special Needs IVETH-GI. ENDOSCOPIC RETROGRADE CHOLANGIOPANCREATOGRAPHY STENT GPMXFDMFS63/14/2025 3:55 PM EDT Common bile duct stricture (HCC) Special Needs IVETH-GI. SURGICAL PATHOLOGY DMPITUQrmbfps87/14/2025 9:22 AM EDT COMPREHENSIVE METABOLIC PANEL W/ REFLEX TO MG FOR LOW MMznsmsx30/14/2025 6:46 AM EDT CBC WITH AUTO IMJZONGXXSAPNvgqnee86/14/2025 6:46 AM EDT SURGICAL PATHOLOGY QFNHLWNzzqnei85/14/2025 12:00 AM EDT COMPREHENSIVE METABOLIC BXOIGOhprr25/14/2025 12:00 AM EDT BASIC METABOLIC PANEL W/ REFLEX TO MG FOR LOW EYqkmtwe89/13/2025 8:16 PM EDT PREVIOUS HNBBSNDQOsniiwn06/13/2025 3:59 PM EDTVITAMIN B12 & FOLATERoutine 03/25/2025 3:59 PM EDT US ORGAN KAVGKKUQJITXEfcytrm63/13/2025 12:16 PM EDT COLONOSCOPY SWQXFW4403/25/2025 9:40 AM EDT Anemia, unspecified type COLONOSCOPY POLYPECTOMY SNARE/GOSKDA5203/25/2025 9:40 AM EDT Anemia, unspecified type ESOPHAGOGASTRODUODENOSCOPY DUHKIK7103/25/2025 9:40 AM EDT Anemia, unspecified type LRAVHBKNGdnfpzl62/13/2025 6:51 AM EDT IRON AND MHPVUwbicvf99/13/2025 6:51 AM EDT OAWEEYRWXJfyxhmv08/13/2025 6:51 AM EDT COMPREHENSIVE METABOLIC PANEL W/ REFLEX TO MG FOR LOW XCfhufny42/13/2025 6:51 AM EDT CBC WITH AUTO JDKKFNOGBUNXZccubws08/13/2025 6:51 AM EDT SURGICAL PATHOLOGY CFVKWRViaqoxu56/13/2025 12:00 AM EDT MRI ABDOMEN W WO CONTRAST AMWTWyvwlao13/12/2025 9:32 AM EDT COMPREHENSIVE METABOLIC PANEL W/ REFLEX TO MG FOR LOW YNxhnppd44/12/2025 6:30 AM EDT CBC WITH AUTO IBGJDYKSMYPCQnbslut28/12/2025 6:30 AM EDT PROTIME-DSBFfkdoxq17/12/2025 6:30 AM EDT COMPREHENSIVE METABOLIC PNOUVMemzs39/12/2025 12:48 AM EDT C DIFF TOXIN/ANTIGENSunquest Label Print03/23/2025 6:24 PM EDT GASTROINTESTINAL PANEL, MOLECULARSunquest Label 03/23/2025 6:24 PM EDT ONRBEWPZJRwgrnkj41/11/2025 2:24 PM EDT BASIC METABOLIC PANEL W/ REFLEX TO MG FOR LOW KSTAT1 2:24 PM EDT PROTIME-WGHDhqubza14/11/2025 5:20 AM EDT TSH REFLEX TO PA8Genrnny58/11/2025 5:20 AM EDT LIPID, LYQNLFCUmynqed44/11/2025 5:20 AM EDT CBC WITH AUTO QSAGGJSEOTWIFnmvsuk48/11/2025 5:20 AM EDT LKEOCJWLLHYmbpkvy69/11/2025 5:20 AM EDT XFBMXLWRXBolmfpi94/11/2025 5:20 AM EDT COMPREHENSIVE METABOLIC PANEL W/ REFLEX TO MG FOR LOW OQgazvaq25/11/2025 5:20 AM EDT SNYUWMAtmikds65/10/2025 9:34 PM EDT from Last 3 Months Results * (ABNORMAL) Basic Metabolic Panel w/ Reflex to MG (03/31/2025 5:29 AM EDT) Only the most recent of5 resultswithin the time period is included. ComponentValueRef RangeTest MethodAnalysis TimePerformed AtPathologist Signature Nrsfyh281066 - 145 mmol/L1 5:29 AM EDTMERCY LABORATORIESPotassium4.23.7 - 5.3 mmol/L1 5:29 AM EDTMERCY LABORATORIESComment: Specimen hemolysis has exceeded the interference as defined by Francesco. Value may be falsely increased. Suggest recollection if clinically indicated. Plmjnrge23618 - 107 mmol/L1 5:29 AM EDTMERCY DZMDNFWFVLOXXI92162 - 31 mmol/L1 5:29 AM EDTMERCY LABORATORIESAnion Gap6(L)9 - 16 mmol/L 03/31/2025 5:29 AM EDTMERCY RQXKOUIXPKXEVgehihn0056 - 99 mg/dL03/31/2025 5:29 AM EDTMERCY LABORATORIESBUN3(L)6 - 20 mg/dL03/31/2025 5:29 AM EDTMERCY LABORATORIES Creatinine0.4(L)0.6 - 0.9 mg/dL03/31/2025 5:29 AM EDTMERCY LABORATORIESEst, Glom Filt Rate>90>60 mL/min/1.36t58403/31/2025 5:29 AM EDTMERCY LABORATORIESComment: ? These results [...] Method / VolumeCollection TimeReceived TimeBloodBLOOD SPECIMEN / Kuevxnr7003/31/2025 5:29 AM EDT1 5:57 AM EDT Narrative Authorizing ProviderResult TypeResult StatusAndisaura Tracy DOCHEMISTRY ORDERABLESFinal ResultPerforming OrganizationAddressCity/State/ZIP CodePhone Number [employer] [address] [place] [address], [facility] [phone] * (ABNORMAL) CBC with Auto Differential (03/31/2025 5:29 AM EDT) Only the most recent of5 resultswithin the time period is included. ComponentValueRef RangeTest MethodAnalysis TimePerformed AtPathologist Signature WBC7.83.5 - 11.3 k/uL03/31/2025 5:29 AM EDTMERCY LABORATORIESRBC2.58(L)3.95 - 5.11 m/uL03/31/2025 5:29 AM EDTMERCY LABORATORIESHemoglobin9.6(L)11.9 - 15.1 g/dL03/31/2025 5:29 AM EDTMERCY XDGZIHHEZGFCGsbbochpaa36.5(L)36.3 - 47.1 % 03/31/2025 5:29 AM EDTMERCY QIUSUEDRMMBCYIR859.2(H)82.6 - 102.9 fL03/31/2025 5:29 AM EDTMERCY WYSTLPWUDYZYVIV64.2(H)25.2 - 33.5 pg03/31/2025 5:29 AM EDTMERCY ZDAUXCOCKALQHRPP94.528.4 - 34.8 g/dL03/31/2025 5:29 AM EDTMERCY LABORATORIESRDW 13.211.8 - 14.4 %03/31/2025 5:29 AM EDTMERCY ZKGJIZSRMBRHRuavhuvea659616 - 453 k/uL03/31/2025 5:29 AM EDTMERCY FYWROZTYMIHNEQV55.48.1 - 13.5 fL03/31/2025 5:29 AM EDTMERCY LABORATORIESNRBC Automated0.00.0 per 100 WBC03/31/2025 5:29 AM EDT [facility] LABORATORIESImmature Granulocytes %00 %03/31/2025 5:29 AM EDTMERCY LABORATORIESNeutrophils %73(H)36 - 65 %03/31/2025 5:29 AM EDTMERCY LABORATORIES Lymphocytes %16(L)24 - 43 %03/31/2025 5:29 AM EDTMERCY LABORATORIESMonocytes %83 - 12 %03/31/2025 5:29 AM EDTMERCY LABORATORIESEosinophils %21 - 4 %03/31/2025 5:29 AM EDTMERCY LABORATORIESBasophils %10 - 2 %03/31/2025 5:29 AM EDTMERCY LABORATORIESImmature Granulocytes Absolute0.000.00 - 0.30 k/uL03/31/2025 5:29 AM EDTMERCY LABORATORIESNeutrophils Absolute5.691.50 - 8.10 k/uL03/31/2025 5:29 AM EDTMERCY LABORATORIESLymphocytes Absolute1.251.10 - 3.70 k/uL03/31/2025 5:29 AM EDTMERCY LABORATORIESMonocytes Absolute0.620.10 - 1.20 k/uL03/31/2025 5:29 AM EDTMERCY LABORATORIESEosinophils Absolute0.160.00 - 0.44 k/uL03/31/2025 5:29 AM EDTMERCY LABORATORIESBasophils Absolute0.080.00 - 0.20 k/uL03/31/2025 5:29 AM EDTMERCY LABORATORIESMorphologyMACROCYTOSIS GOEDOYH7603/31/2025 5:29 AM EDTMERCY LABORATORIESSpecimen (Source)Anatomical Location / LateralityCollection Method / VolumeCollection TimeReceived TimeBloodBLOOD SPECIMEN / Hpzcqth0503/31/2025 5:29 AM EDT1 5:57 AM EDT Narrative Authorizing ProviderResult TypeResult StatusAndisaura Tracy DOHEMATOLOGY ORDERABLESFinal ResultPerforming OrganizationAddressCity/State/ZIP CodePhone Number [place] [phone] [place] [address], [facility] [phone] * (ABNORMAL) Hepatic Function Panel (03/31/2025 5:29 AM EDT) Only the most recent of4 resultswithin the time period is included. ComponentValueRef RangeTest MethodAnalysis TimePerformed AtPathologist Signature Albumin2.6(L)3.5 - 5.2 g/dL03/31/2025 5:29 AM EDTMERCY LABORATORIESAlkaline Odgqhgaewwk512(H)35 - 104 U/L1 5:29 AM EDTMERCY WKWPIOPCBYORCYF5734 - 35 U/L1 5:29 AM EDTMERCY BVPIESAZBPSVYKL55(H)10 - 35 U/L1 5:29 AM EDTMERCY LABORATORIESComment: [...] / VolumeCollection TimeReceived TimeBlood BLOOD SPECIMEN / Ifcjtdm9203/31/2025 5:29 AM EDT1 5:57 AM EDT Narrative Authorizing ProviderResult TypeResult StatusIsaias Monae DOCHEMISTRY ORDERABLESFinal ResultPerforming OrganizationAddressCity/State/ZIP CodePhone Number [facility] [address] [place] [address], [facility] [phone] * (ABNORMAL) Differential (03/30/2025 6:26 AM EDT)ComponentValueRef RangeTest MethodAnalysis TimePerformed AtPathologist SignatureRBC MorphologyMACROCYTOSIS GPQDQTC4603/30/2025 6:26 AM EDTMERCY LABORATORIESImmature Granulocytes %1(H)0 % [...] Absolute7.531.50 - 8.10 k/uL03/30/2025 6:26 AM EDT [facility] LABORATORIESLymphocytes Absolute1.441.10 - 3.70 k/uL03/30/2025 6:26 AM EDTMERCY LABORATORIESMonocytes Absolute1.030.10 - 1.20 k/uL03/30/2025 6:26 AM EDTMERCY LABORATORIESEosinophils Absolute0.100.00 - 0.44 k/uL03/30/2025 6:26 AM EDTMERCY LABORATORIESBasophils Absolute0.100.00 - 0.20 k/uL03/30/2025 6:26 AM EDTMERCY LABORATORIESMorphologyMACROCYTOSIS OQFSIGG4803/30/2025 6:26 AM EDT [facility] LABORATORIESSpecimen (Source)Anatomical Location / LateralityCollection Method / VolumeCollection TimeReceived Time03/30/2025 6:26 AM EDT1 8:30 AM EDT Narrative Authorizing ProviderResult TypeResult StatusAusmeenu Monae DOCHEMISTRY ORDERABLESFinal ResultPerforming OrganizationAddressCity/State/ZIP CodePhone Number [employer] [address] [place] [address], [facility] [phone] * (ABNORMAL) CBC (03/30/2025 6:26 AM EDT) Only the most recent of3 resultswithin the time period is included. ComponentValueRef RangeTest MethodAnalysis TimePerformed AtPathologist Signature WBC10.33.5 - 11.3 k/uL03/30/2025 6:26 AM EDTMERCY LABORATORIESRBC2.51(L)3.95 - 5.11 m/uL03/30/2025 6:26 AM EDTMERCY LABORATORIESHemoglobin9.3(L)11.9 - 15.1 g/dL03/30/2025 6:26 AM EDTMERCY ADGGUWMFWDEFJqlbafyaxl14.0(L)36.3 - 47.1 % 03/30/2025 6:26 AM EDTMERCY UIENLIMEABPHXLD831.5(H)82.6 - 102.9 fL03/30/2025 6:26 AM EDTMERCY KDPQHORKFNFGUSM87.1(H)25.2 - 33.5 pg03/30/2025 6:26 AM EDTMERCY TFJBDKYBKSWSEWCY85.028.4 - 34.8 g/dL03/30/2025 6:26 AM EDTMERCY LABORATORIESRDW 13.211.8 - 14.4 %03/30/2025 6:26 AM EDTMERCY UHMLARNLAVQLDjhaiqvqk413539 - 453 k/uL03/30/2025 6:26 AM EDTMERCY IEZHKUARUJWVQYF45.88.1 - 13.5 fL03/30/2025 6:26 AM EDTMERCY LABORATORIESNRBC Automated0.00.0 per 100 WBC03/30/2025 6:26 AM EDT [facility] LABORATORIESSpecimen (Source)Anatomical Location / LateralityCollection Method / VolumeCollection TimeReceived Time03/30/2025 6:26 AM EDT1 8:30 AM EDT Narrative Authorizing ProviderResult TypeResult StatusAustin Jones Monae DOHEMATOLOGY ORDERABLESFinal ResultPerforming OrganizationAddressCity/State/ZIP CodePhone Number [facility] [address] [place] [address], [facility] [phone] * (ABNORMAL) Magnesium (03/30/2025 6:26 AM EDT) Only the most recent of4 resultswithin the time period is included. ComponentValueRef RangeTest MethodAnalysis TimePerformed AtPathologist Signature Magnesium1.3(L)1.6 - 2.6 mg/dL03/30/2025 6:26 AM EDTMERCY LABORATORIESSpecimen (Source)Anatomical Location / LateralityCollection Method / VolumeCollection TimeReceived Time03/30/2025 6:26 AM EDT1 8:30 AM EDT Narrative Authorizing ProviderResult TypeResult StatusRivkameenu Monae DOCHEMISTRY ORDERABLESFinal ResultPerforming OrganizationAddressCity/State/ZIP CodePhone Number [facility] [employer] [address] [place] [address], [facility] [phone] * SURGICAL PATHOLOGY REPORT (03/29/2025 12:00 AM EDT) Only the most recent of4 resultswithin the time period is included. ComponentValueRef RangeTest MethodAnalysis TimePerformed AtPathologist Signature Surgical Pathology ReportPath Number: [id number] -- Diagnosis -- Gallbladder: -Cholelithiasis and mild [...] Microscopic Description Microscopic examination performed. Processing Lab: ??[address] [address] Interpretation Performed at [address] [address] SURGICAL PATHOLOGY CONSULTATION Patient [facility]: [facility] Rec: [id number] [facility] ??[facility] ANATOMIC PATHOLOGY [address] [facility]. ??[place] [id number] b [employer], LLCGIL[facility] [employer] LABSSpecimen (Source)Anatomical Location / LateralityCollection Method / VolumeCollection TimeReceived Time 2:07 PM EDT Narrative Authorizing ProviderResult TypeResult StatusAmer Jennifer Sue MD PATHOLOGY/CYTOLOGY ORDERABLESFinal ResultPerforming OrganizationAddress City/State/ZIP CodePhone Number [employer] [address] [place] [address] [facility] [employer] LABS * XR ABDOMEN (KUB) (SINGLE AP VIEW) [...] calculus evident. Authorizing ProviderResult TypeResult StatusReba Gonzalez MA-[facility] DIAGNOSTIC IMAGING ORDERABLESFinal Result * PREVIOUS SPECIMEN (03/27/2025 2:55 PM EDT) Only the most recent of2 resultswithin the time period is included. Specimen (Source)Anatomical Location / LateralityCollection Method / Volume Collection TimeReceived Time03/27/2025 2:55 PM EDT1 3:10 PM EDT Narrative Authorizing ProviderResult TypeResult StatusMarvel Ng MDCHEMISTRY ORDERABLESFinal ResultPerforming OrganizationAddressCity/State/ZIP CodePhone Number [address] [phone] * (ABNORMAL) Comprehensive Metabolic Panel w/ Reflex to MG (03/27/2025 2:55 PM EDT) Only the most recent of5 resultswithin the time period is included. ComponentValueRef RangeTest MethodAnalysis TimePerformed AtPathologist Signature Ijulhq573(L)136 - 145 mmol/L1 2:55 PM EDTMERCY LABORATORIESPotassium4.1 3.7 - 5.3 mmol/L1 2:55 PM EDTMERCY BQOKYONHBAAEGsdesgjp70437 - 107 mmol/L1 2:55 PM EDTMERCY CTGNNBYNVTRNRZ69794 - 31 mmol/L1 2:55 PM EDTMERCY LABORATORIESAnion Gap6(L)9 - 16 mmol/L1 2:55 PM EDTMERCY ZRUDAHWDQPKGBuyelxd879(H)74 - 99 mg/dL03/27/2025 2:55 PM EDTMERCY LABORATORIES BUN3(L)6 - 20 mg/dL03/27/2025 2:55 PM EDTMERCY LABORATORIESCreatinine0.3(L)0.6 - 0.9 mg/dL03/27/2025 2:55 PM EDTMERCY LABORATORIESComment:Specimen icterus has exceeded the interference as defined by Francesco. Result may be affected.Est, Glom Filt Rate>90>60 mL/min/1.85q86503/27/2025 2:55 PM EDTMERCY LABORATORIESComment: ? These results [...] 2:55 PM EDTMERCY LABORATORIESAlbumin/Globulin Ratio1.0 1.0 - 2. 2:55 PM EDTMERCY LABORATORIESTotal Bilirubin4.2(H)0.0 - 1.2 mg/dL03/27/2025 2:55 PM EDTMERCY LABORATORIESAlkaline Etyysrowcfl990(H)35 - 104 U/L1 2:55 PM EDTMERCY EDPNINVTIJSBWFS9129 - 35 U/L1 2:55 PM EDTMERCY RUISKUWZLHKHZED71(H)10 - 35 U/L1 2:55 PM EDTMERCY LABORATORIES Specimen (Source)Anatomical Location / LateralityCollection Method / Volume Collection TimeReceived Time03/27/2025 2:55 PM EDT1 3:10 PM EDT Narrative Authorizing ProviderResult TypeResult StatusBakyle Ng MDCHEMISTRY ORDERABLESFinal ResultPerforming OrganizationAddressCity/State/ZIP CodePhone Number ROBYN Sch[address]eder[address] [place] [address], [facility] [phone] * (ABNORMAL) ECHO (TTE) COMPLETE (03/27/2025 11:55 AM EDT)ComponentValueRef RangeTest MethodAnalysis TimePerformed AtPathologist SignatureLV EDV [id number] [facility] CV CPACSLV EDV T4Q48fHYJNB CV CPACSLV ESV M8Q45jGDHNZ CV CPACSLV ESV A4C 20mLBSMH CV CPACSIVSd0.80.6 - 0.9 cmBSMH CV CPACSLVIDd4.43.9 - 5.3 cmBSMH CV CPACSLVIDs3.1cmBSMH CV CPACSLVOT Diameter2.0cmBSMH CV CPACSLVOT Mean Gradient2 mmHgBSMH CV CPACSLVOT VTI15.3cmBSMH CV CPACSLVOT Peak Velocity0.9m/sBSMH CV CPACSLVOT Peak Ycqpeddl2wtBoTSUV CV CPACSLVPWd0.80.6 - 0.9 cmBSMH CV CPACSLV E' Lateral Velocity9.46cm/sBSMH CV CPACSLV E' Septal Velocity6.31cm/sBSMH CV CPACSGlobal longitudinal strain-15.3%[facility] CV CPACSLV Ejection Fraction A2C40% [facility] CV CPACSLV Ejection Fraction A4C61%[facility] CV CPACSEF FC5498 - 100 %[facility] CV CPACSLVOT Area3.1nj8VIAP CV CPACSLVOT SV48.0mlBSMH CV CPACSLA Minor Axis3.3cm [facility] CV CPACSLA Major Axis5.3cmBSMH CV CPACSLA Area 2C9.2ki5TOKD CV CPACSLA Area 4C12.2ej2RKHN CV CPACSLA Volume MOD [id number] - 52 mLBSMH CV CPACSLA Volume MOD [id number] - 52 mLBSMH CV CPACSLA Diameter3.7cmBSMH CV CPACSRA Area 4C12.8cm2 [facility] CV CPACSRA Qumijy82nyIFEU CV CPACSAV Mean Velocity0.8m/sBSMH CV CPACSAV Mean Qbsoounq3csJjHXEX CV CPACSAV VTI23.0cmBSMH CV CPACSAV Peak Velocity1.2m/s [facility] CV CPACSAV Peak Orqmdrbh5dySrIDTR CV CPACSAV Area by VTI2.1yj9YGDQ CV CPACSAV Area by Peak Velocity2.8ag5DYXZ CV CPACSAortic Root3.6cmBSMH CV CPACS Ascending Aorta3.0cmBSMH CV CPACSIVC Proxmal1.8cmBSMH CV CPACSMV E Wave Deceleration Wkfj809.0msBSMH CV CPACSMV A Velocity0.75m/sBSMH CV CPACSMV E Velocity0.57m/sBSMH CV CPACSMV Mean Ouegywul7miNwLYDF CV CPACSMV VTI19.3cmBSMH CV CPACSMV Mean Velocity0.5m/sBSMH CV CPACSMV Max Velocity0.7m/sBSMH CV CPACS MV Peak Bvdrbbzl2msGdTEQT CV CPACSMV Area by VTI2.7ky4XPBB CV CPACSRV Basal Dimension3.1cmBSMH CV CPACSRV Mid Dimension3.1cmBSMH CV CPACSRV Free Wall Peak S'10.3cm/sBSMH CV CPACSTAPSE2.0>=1.7 cmBSMH CV CPACSBody Surface Area1.2z0MPBZ CV CPACSFractional Shortening 3G0542 - 44 %BS[facility] CV CPACSLV ESV Index A4C12 mL/m2BSMH CV CPACSLV EDV Index Y6X85wZ/m2BSMH CV CPACSLV ESV Index M1P09nA/m2 [facility] CV CPACSLV EDV Index F9J25vX/m2[facility] CV CPACSLVIDd Index2.72cm/m2[facility] CV CPACSLVIDs Index1.91cm/m2[facility] CV [...] CPACSLA/AO Root Ratio1.03[facility] CV CPACSRA Volume Index J3B76dW/m2[facility] CV CPACSAo Root Index2.22cm/m2[facility] CV CPACSAscending Aorta Index1.85cm/m2[facility] CV CPACSAV Velocity Ratio0.75[facility] CV CPACSLVOT:AV VTI Index0.67[facility] CV CPACSAVA/BSA VTI 1.3cm2/m2[facility] CV CPACSAVA/BSA Peak Velocity1.4cm2/m2[facility] CV CPACSMV:LVOT VTI Index1.26[facility] CV CPACSEst. RA Drsjhfge9pvSaWWCX CV CPACSEF Yyhfavhpk73%BSMH CV CPACSAnatomical RegionLateralityModalityEchocardiographySpecimen (Source) Anatomical Location / [...] was given. Authorizing ProviderResult TypeResult StatusSyed Diego Clarisa Harper MDC ECHO ORDERABLESFinal Result * US GI ENDOSCOPIC S&I (03/26/2025 11:44 PM EDT)Specimen (Source)Anatomical Location / LateralityCollection Method / VolumeCollection TimeReceived Time Narrative [facility] - 03/26/2025 11:44 PM EDT Radiology exam is complete. No Radiologist dictation. Please follow up with ordering provider. Authorizing ProviderResult TypeResult StatusSyed Diego Harper MDG US ORDERABLESFinal ResultPerforming OrganizationAddressCity/State/ZIP CodePhone Number [facility] * FLUORO FOR SURGICAL PROCEDURES (03/26/2025 6:17 PM EDT)Specimen (Source) Anatomical Location / LateralityCollection Method / VolumeCollection Time Received Time Narrative [facility] - 03/26/2025 6:17 PM EDT Radiology exam is complete. No Radiologist dictation. Please follow up with ordering provider. 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 ComponentValueRef RangeTest MethodAnalysis TimePerformed AtPathologist Signature Iwmnms675(L)136 - 145 mmol/L1 12:00 AM EDTMERCY LABORATORIESPotassium 3.5(L)3.7 - 5.3 mmol/L1 12:00 AM EDTMERCY EOYDAOGQOYNAAfrragep0950 - 107 mmol/L1 12:00 AM EDTMERCY WFNQHBFQDATOOJ71646 - 31 mmol/L1 12:00 AM EDTMERCY LABORATORIESAnion Gap6(L)9 - 16 mmol/L1 12:00 AM EDT [facility] DTZVPIWFMEEBCgqmdzi489(H)74 - 99 mg/dL03/26/2025 12:00 AM EDTMERCY LABORATORIESBUN<2(L)6 - 20 mg/dL03/26/2025 12:00 AM EDTMERCY LABORATORIES Creatinine0.3(L)0.6 - 0.9 mg/dL03/26/2025 12:00 AM EDTMERCY LABORATORIESComment: Specimen icterus has exceeded the interference as defined by Francesco. Result may be affected.Est, Glom Filt Rate>90>60 mL/min/1.77z63803/26/2025 12:00 AM EDTMERCY LABORATORIESComment: ? These results [...] 12:00 AM EDTMERCY LABORATORIESAlbumin/Globulin Ratio 0.9(L)1.0 - 2.510 12:00 AM EDTMERCY LABORATORIESTotal Bilirubin5.8(H)0.0 - 1.2 mg/dL03/26/2025 12:00 AM EDTMERCY LABORATORIESAlkaline Yzchhnkexna385(H) 35 - 104 U/L1 12:00 AM EDTMERCY SRAAIQFYDONAUXS86(H)10 - 35 U/L 03/26/2025 12:00 AM EDTMERCY GMDUFVNQPKCUQRF34(H)10 - 35 U/L1 12:00 AM EDTMERCY LABORATORIESSpecimen (Source)Anatomical Location / LateralityCollection Method / VolumeCollection TimeReceived TimeBloodBLOOD SPECIMEN / Unknown 12:05 AM EDT Narrative Authorizing ProviderResult TypeResult StatusDilnoor Chloe MDCHEMISTRY ORDERABLES Final ResultPerforming OrganizationAddressCity/State/ZIP CodePhone Number [place] [id number] [address] [phone] * (ABNORMAL) Vitamin B12 & Folate (03/25/2025 3:59 PM EDT)ComponentValueRef RangeTest MethodAnalysis TimePerformed AtPathologist SignatureVitamin B-12 >2000(H)232 - 1245 pg/mL03/25/2025 3:59 PM EDTMERCY HEYNVBKCUQXCRndeoi17.5(H) 4.8 - 24.2 ng/mL03/25/2025 3:59 PM EDTMERCY LABORATORIESSpecimen (Source) Anatomical Location / LateralityCollection Method / VolumeCollection Time Received Time03/25/2025 3:59 PM EDT1 4:09 PM EDT Narrative Authorizing ProviderResult TypeResult StatusDilnoor Chloe MDCHEMISTRY ORDERABLES Final ResultPerforming OrganizationAddressCity/State/ZIP CodePhone Number ROBYN Schroeder[address] [place] [id number], [facility] [phone] * US ORGAN ELASTOGRAPHY (03/25/2025 12:16 PM [...] stiffness measurements were obtained on a [employer] E9 unit with a C1-6-D transducer. ??12 [...] stiffness measurements were obtained on a [employer] E9unit with a C1-6-D transducer. 12 valid [...] (cirrhosis, >11.9 kPa). Authorizing ProviderResult TypeResult StatusHoisma Andujar MDIMG US ORDERABLES Final Result * (ABNORMAL) Iron and TIBC (03/25/2025 6:51 AM EDT)ComponentValueRef RangeTest MethodAnalysis TimePerformed AtPathologist NnvhqwnqdDefc5048 - 145 ug/dL 03/25/2025 6:51 AM EDTMERCY XANRMJQJLWXKXPAE380(L)250 - 450 ug/dL03/25/2025 6:51 AM EDTMERCY LABORATORIESIron % Ozcasbwkii5308 - 55 %03/25/2025 6:51 AM EDTMERCY KAJGAVFTSRCTSESV76(L)112 - 347 ug/dL03/25/2025 6:51 AM EDTMERCY LABORATORIESSpecimen (Source)Anatomical Location / LateralityCollection Method / VolumeCollection TimeReceived Time03/25/2025 6:51 AM EDT1 8:25 AM EDT Narrative Authorizing ProviderResult TypeResult StatusDilnoor Chloe MDCHEMISTRY ORDERABLES Final ResultPerforming OrganizationAddressCity/State/ZIP CodePhone Number [employer] [address] [place] [address], [facility] [phone] * (ABNORMAL) Ferritin (03/25/2025 6:51 AM EDT)ComponentValueRef RangeTest Method Analysis TimePerformed AtPathologist KhjfpqzpkMcgbsvme404(H)15 - 150 ng/mL 03/25/2025 6:51 AM EDTMERCY [...] MDCHEMISTRY ORDERABLES Final ResultPerforming OrganizationAddressCity/State/ZIP CodePhone Number [employer] [facility] [place] [address], [facility] [phone] * MRI ABDOMEN W WO CONTRAST MRCP [...] Severe loss of signal intensity seen on jrj-zz-gxiky imaging consistent with severe hepatic steatosis. Mild [...] Severe loss of signal intensity seen on uvt-in-tqnml imaging consistentwith severe hepatic steatosis. Mild hepatomegaly [...] of cholecystitis. Authorizing ProviderResult TypeResult StatusAimee Miester BEAN DUMPER - NPIMG MRI ORDERABLESFinal Result * Protime-INR (03/24/2025 6:30 AM EDT) Only the most recent of2 resultswithin the time period is included. ComponentValueRef RangeTest MethodAnalysis TimePerformed AtPathologist Signature Qotvhwx52.911.7 - 14.9 sec03/24/2025 6:30 AM EDTMERCY LABORATORIESINR1.1 03/24/2025 6:30 AM EDTMERCY LABORATORIESComment: ? Therapeutic Range: Moderate Anticoagulant Intensity: INR = 2.0-3.0 High Anticoagulant Intensity: INR = 2.5-3.5 Specimen (Source)Anatomical Location / LateralityCollection Method / Volume Collection TimeReceived TimeBloodBLOOD SPECIMEN / Mvlorrd2303/24/2025 6:30 AM EDT 03/24/2025 7:03 AM EDT Narrative Authorizing ProviderResult TypeResult StatusBetty Liu APNHEMATOLOGY ORDERABLESFinal ResultPerforming OrganizationAddressCity/State/[place] [address], [facility] [phone] * Gastrointestinal Panel, Molecular (03/23/2025 6:24 PM EDT)ComponentValueRef RangeTest MethodAnalysis TimePerformed AtPathologist SignatureSpecimen Description.FECES03/23/2025 6:24 PM EDTMERCY LABORATORIESCampylobacter PCR NEGATIVE: No Campylobacter spp. (jejuni or coli) DNA DetectedNEGATIVE: No Campylobacter spp. (jejuni or coli) DNA Xmxdsdc29/11/2025 6:24 PM EDTMERCY LABORATORIESSalmonella PCRNEGATIVE: No Salmonella spp. DNA DetectedNEGATIVE: No Salmonella spp. DNA Qetuixvy33/11/2025 6:24 PM EDTMERCY LABORATORIES Shigatoxin Gene PCRNEGATIVE: No Shiga toxin-producing gene(s) Detected NEGATIVE: No Shiga toxin-producing gene(s) Alrnlcjk36/11/2025 6:24 PM EDTMERCY LABORATORIESShigella Sp PCRNEGATIVE: No Shigella spp. / EIEC DNA Detected NEGATIVE: No Shigella spp. / EIEC DNA Zuwzhpzu75/11/2025 6:24 PM EDTMERCY LABORATORIESPlesiomonas Shigelloides PCRNEGATIVE: No Plesionomas shigelloides DNA DetectedNEGATIVE: No Plesionomas shigelloides DNA Coaxfohf98/11/2025 6:24 PM EDTMERCY LABORATORIESVibrio PCRNEGATIVE: No Vibrio [...] enterocolitica DNA DetectedNEGATIVE: No Yersinia enterocolitica DNA Buifbgmx08/11/2025 6:24 PM EDTMERCY LABORATORIESSpecimen (Source)Anatomical Location / LateralityCollection Method / VolumeCollection TimeReceived TimeSTOOL SPECIMEN / Zjkvtqm4403/23/2025 6:24 PM EDT1 6:24 PM EDT Narrative Authorizing ProviderResult TypeResult StatusChPemiscot Memorial Health Systemsgerty APNMICROBIOLOGY - GENERAL ORDERABLESFinal ResultPerforming OrganizationAddressty/State/[place] [address], [facility] [phone] * C DIFF TOXIN/ANTIGEN (03/23/2025 6:24 PM EDT)ComponentValueRef RangeTest MethodAnalysis TimePerformed AtPathologist SignatureSpecimen Description.FECES 03/23/2025 6:24 PM EDTMERCY LABORATORIESC DIFF AG + TOXINNEGATIVENEGATIVE 03/23/2025 6:24 PM EDTMERCY LABORATORIESComment:No C. difficile antigen and Toxin Detected.Specimen (Source)Anatomical Location / LateralityCollection Method / VolumeCollection TimeReceived TimeSTOOL SPECIMEN / Kdzcbyg7003/23/2025 6:24 PM EDT1 6:24 PM EDT Narrative Authorizing ProviderResult TypeResult StatusChristine M Alexa APASCENSION BORGESS-PIPP HOSPITALIOLOGY - GENERAL ORDERABLESFinal ResultPerforming OrganizationAddressty/State/[place] [address], [facility] [phone] * (ABNORMAL) Lipid, Fasting (03/23/2025 5:20 AM EDT)ComponentValueRef RangeTest MethodAnalysis TimePerformed AtPathologist SignatureCholesterol, Ehbqlma940(H) 0 - 199 mg/dL03/23/2025 5:20 AM EDTMERCY LABORATORIESComment: Cholesterol Guidelines: <200 Desirable 200-240 ??Borderline >240 Undesirable HDL22(L)>40 mg/dL03/23/2025 5:20 AM EDTMERCY LABORATORIESComment: HDL Guidelines: <40 Undesirable 40-59 ?Borderline >59 Desirable LDL Cypybkovqir688(H)0 - 100 mg/dL03/23/2025 5:20 AM EDTMERCY LABORATORIES Comment: LDL Guidelines: <100 Desirable 100-129 ?? Near to/above Desirable 130-159 ?? Borderline >159 Undesirable Direct (measured) LDL and calculated LDL are not interchangeable tests. Chol/HDL Ratio16.3(H)<5.010 5:20 AM EDTMERCY LABORATORIESTriglyceride, Bshxetf4199 - 149 mg/dL03/23/2025 5:20 AM EDTMERCY LABORATORIESComment: Triglyceride Guidelines: <150 Desirable 150-199 ??Borderline 200-499 ??High >499 Very high Based on AHA Guidelines for fasting triglyceride, March 2012. VJET044 - 30 mg/dL03/23/2025 5:20 AM EDTMERCY LABORATORIESSpecimen (Source) Anatomical Location / LateralityCollection Method / VolumeCollection Time Received TimeBloodBLOOD SPECIMEN / Lztflar9903/23/2025 5:20 AM EDT1 5:47 AM EDT Narrative Authorizing ProviderResult TypeResult StatusAimee Miester BEAN DUMPER - NPCHEMISTRY ORDERABLESFinal ResultPerforming OrganizationAddressCity/State/ZIP CodePhone Number [employer] [address] [place] [address], [facility] [phone] * TSH reflex to FT4 (03/23/2025 5:20 AM EDT)ComponentValueRef RangeTest Method Analysis TimePerformed AtPathologist SignatureTSH1.960.27 - 4.20 uIU/mL 03/23/2025 5:20 AM EDTMERCY LABORATORIESSpecimen (Source)Anatomical Location / LateralityCollection Method / VolumeCollection TimeReceived Time03/23/2025 5:20 AM EDT1 5:47 AM EDT Narrative Authorizing ProviderResult TypeResult StatusAimee Miester BEAN DUMPER - NPCHEMISTRY ORDERABLESFinal ResultPerforming OrganizationAddressCity/State/ZIP CodePhone Number [employer] [address] [place] [address], [facility] [phone] * Phosphorus (03/23/2025 5:20 AM EDT)ComponentValueRef RangeTest MethodAnalysis TimePerformed AtPathologist SignaturePhosphorus2.82.5 - 4.5 mg/dL03/23/2025 5:20 AM EDTMERCY LABORATORIESSpecimen (Source)Anatomical Location / Laterality Collection Method / VolumeCollection TimeReceived Time03/23/2025 5:20 AM EDT 03/23/2025 5:47 AM EDT Narrative Authorizing ProviderResult TypeResult StatusAimee Miester BEAN DUMPER - NPCHEMISTRY ORDERABLESFinal ResultPerforming OrganizationAddressCity/State/ZIP CodePhone Number INTERNET BUSINESS TRADER [facility] [place] [address], [facility] [phone] * (ABNORMAL) Lipase (03/22/2025 9:34 PM EDT)ComponentValueRef RangeTest Method Analysis TimePerformed AtPathologist DyvoagzfuTsults34(L)13 - 60 U/L1 9:34 PM EDTMERCY LABORATORIESSpecimen (Source)Anatomical Location / LateralityCollection Method / VolumeCollection TimeReceived TimeBLOOD SPECIMEN / Ordjieu9603/22/2025 9:34 PM EDT1 9:36 PM EDT Narrative Authorizing ProviderResult TypeResult StatusAimee Miester BEAN DUMPER - NPCHEMISTRY ORDERABLESFinal ResultPerforming OrganizationAddressCity/State/ZIP CodePhone Number [employer] [address] [place] [address], [facility] [phone] from Last 3 Months Insurance Advance Directives * Full Code (Latest Code Status on File) Date ActivatedDate HqcbsqjnbxzEkupuhnn92/10/2025 7:28 03/31/2025 7:16 PM Care Teams Team MemberRelationshipSpecialtyStart DateEnd Date Sudhir Gonzalez MD [address] [place] [address] PCP - GeneralFamily Eadqjsfw87/10/25
--- OUTSIDE RECORDS SUMMARY | 2025-04-08 09:41 | XMS_ITS | Clinical Summary ---
Author Organization [facility] Address [address] [place] [address] Phone Care Team Providers Care Plastic Sewer Name Role Phone Rosalba Adorno LAND ACQUISITION ANALYST-TRANSITION ASSISTANT Primary Care Provide r Social History Tobacco UseTypesPacks/DayYears UsedDateSmoking Tobacco: Never Assessed CommentsUnknownSex and Gender InformationValueDate RecordedSex Assigned at Not on fileLegal OhcEvqbml25/25/2022 9:52 PM ESTGender IdentityNot on fileSexual OrientationNot on file Plan of Treatment Not on file Care Teams Team MemberRelationshipSpecialtyStart DateEnd Date Rosalba Adorno, BILL-TRANSITION ASSISTANT [address] [place] [address] PCP - General07/14/18
--- OUTSIDE RECORDS SUMMARY | 2025-04-08 09:42 | XMS_ITS | Encounter Summary ---
Author Organization [facility] Address [address], [address] [place] [address] Care Team Providers Care Scoop Machine Operator Name Role Phone Sudhir Gonzalez MD Primary Care Provider [phone] Reason for Visit * ReasonOnset IrhhTrdokhudAkkmyppqm16/17/2025EUS/ERCP/Hamdani Encounter Details DateTypeDepartmentCare Team (Latest Contact Info)Joydcfqpqhm36/17/2025Telephone [facility] [address] [place] [address] Arnold Harper MD [facility] [place] [address] Procedure (EUS/ERCP/Hamdani) Social History Tobacco UseTypesPacks/DayYears UsedDateSmoking Tobacco: Every EwaFykozjetxb418.4 Started: 11/1995Alcohol UseStandard Drinks/WeekCommentsYes3 (1 standard drink [...] were you homeless or living in a care home (including now)?No 03/22/2025Hunger Vital SignAnswerDate RecordedWithin the [...] Domain Source: IP Abuse ScreeningAnswerDate Recorded Physical izyqhPeegut11/13/2025Verbal lauhuDjthot20/13/2025Emotional abuseDenies 03/25/2025Financial hutsaHqoyic72/13/2025Sexual pseolTybcnu44/13/2025 CommentsUnknownSex and Gender InformationValueDate RecordedSex Assigned at Not on fileLegal ZlpOxlhgt36/10/2025 3:15 PM EDTGender IdentityNot on fileSexual OrientationNot on filedocumented as of this encounter Plan of Treatment NameTypePriorityAssociated DiagnosesOrder ScheduleXR ABDOMEN (KUB) (SINGLE AP VIEW)ImagingRoutine Common bile duct (CBD) stricture (HCC) Expected: 04/03/2025, Expires: 03/29/2026documented as of this encounter Visit Diagnoses Diagnosis Common bile duct (CBD) stricture (HCC)- Primary Obstruction of bile duct documented in this encounter Care Teams Team MemberRelationshipSpecialtyStart DateEnd Date Sudhir Gonzalez MD [address] [place] [phone] PCP - GeneralFamily Rxijyyrc57/10/25documented as of this encounter
[2025-04-08 10:06] LABS: Hematocrit 33.9 % (36.0-48.0); Hemoglobin 11.0 g/dL (12.0-16.0); Immature Granulocytes Abs Auto 0.05 10^3/uL (0.00-0.03); Immature Granulocytes Pct Auto 0.4 % (0.0-0.5); Lymphocytes Absolute Auto 1.1 10^3/uL (1.2-3.8); Mean Corpuscular HGB Conc 32.4 g/dL (29.9-35.2); Mean Corpuscular Hemoglobin 37.0 pg (26.7-34.0); Platelet Count 391 10^3/uL (150-450); Red Blood Count 2.97 10^6/uL (4.20-5.40); White Blood Count 11.5 10^3/uL (4.0-11.0)
[2025-04-08 10:22] LABS: Mean Corpuscular Volume 114.1 fL (81.0-99.0)
[2025-04-08 10:54] LABS: Alanine Aminotransferase 32 U/L (14-59); Albumin Globulin Ratio 0.5; Albumin Level 2.0 g/dL (3.4-5.0); Alkaline Phosphatase 256 U/L (46-116); Amylase 39 U/L (25-115); Anion Gap 11.4; Aspartate Amino Transferase 109 U/L (15-37); Blood Urea Nitrogen 3.0 mg/dL (7.0-18.0); Calcium 8.3 mg/dL (8.5-10.1); Carbon Dioxide 30.1 mmol/L (21.0-32.0); Chloride 105 mmol/L (98-107); Estimated GFR (African America >60 (>=60 mL/min/1.73m^2); Estimated GFR (Non-African Ame >60 (>=60 mL/min/1.73m^2); Globulin 4.4 g/dL; Glucose 99 mg/dL (74-106); Lipase 19.0 U/L (16.0-77.0); Potassium 3.5 mmol/L (3.5-5.1); Sodium 143 mmol/L (136-145); Total Protein 6.4 g/dL (6.4-8.2)
[2025-04-08 11:08] LABS: Iron 30.0 ug/dL (50.0-170.0)
[2025-04-09 13:17] LABS: Folate 5.10 ng/mL (8.60-58.90)
== END 2025-04-08 09:37 | disposition home or self-care (01) ==
LOC: LAB 09:37
PROVIDERS: PCP Family Medicine; Visit Provider Family Medicine
DX: K81.9 Cholecystitis, unspecified (principal); R10.9 Unspecified abdominal pain; R11.10 Vomiting, unspecified
CPT/HCPCS: 36415; 80053; 82150; 82746; 83540; 83690; 85025